=== PATIENT | female | born 1980 | race Caucasian/White ===

== ENCOUNTER 2021-10-12 14:37 | Outpatient (CLI) | payer BC, SELFPAY ==
[2021-10-12 17:23] LABS: Chloride* 104 mmol/L (96-114); Potassium* 4.2 mmol/L (3.6-5.1); Sodium* 136 mmol/L (135-149)
[2021-10-12 17:25] LABS: Cholesterol* 240 mg/dL (90-199); Creatinine* 0.9 mg/dL (0.5-1.5); Triglycerides* 100 mg/dL (40-149)
[2021-10-12 17:26] LABS: Blood Urea Nitrogen* 16 mg/dL (5-24); Calcium* 8.9 mg/dL (8.4-10.6); Carbon Dioxide* 25 mmol/L (20-32); Glucose* 86 mg/dL (60-115); HDL Cholesterol* 43 mg/dL (>=50); LDL Cholesterol Calculated 177 mg/dL (<100)
== END 2021-10-12 14:38 | disposition home or self-care (01) ==
LOC: NFLDREF 14:39
PROVIDERS: PCP Family Medicine; Visit Provider Family Medicine
DX: R10.9 Unspecified abdominal pain (principal); G89.29 Other chronic pain; N92.0 Excessive and frequent menstruation with regular cycle; N30.10 Interstitial cystitis (chronic) without hematuria; K21.9 Gastro-esophageal reflux disease without esophagitis; M25.561 Pain in right knee; Z13.6 Encounter for screening for cardiovascular disorders
CPT/HCPCS: 80048; 80061

== ENCOUNTER 2021-11-14 11:02 | Emergency (ER) | payer BC, SELFPAY ==
[2021-11-14] VITALS (7 sets, daily range): BP systolic 102–115; BP diastolic 68–85; PULSE 61–69; RESP 16–18; TEMP 35.9; O2SAT 94–99; BMI 29.4
--- NOTE | 2021-11-14 11:23 | ED_ITS ---
HPI - General Adult General Time Seen by Provider: 11:23 Date Seen: 11/14/21 Chief complaint: Chest Pain Stated complaint: Chest pressure/neck pain down to the spine Time Seen by Provider: 11/14/21 11:09 Source: patient History of Present Illness HPI narrative: Lizette is a 41-year-old female past medical history includes depression and anxiety, GERD, chronic abdominal pain, chronic interstitial cystitis presents em erged department by her husbandwith chest pressure. Patient states she was diagnosed with COVID 3 weeks ago, since last Friday she has had a fever 101, she has had intermittent chest pressure worse with movement. Feels like an elephant is sitting on her chest. She has no history of any CAD or stroke. No family history that is contributory.. She feels lightheaded when she stands, she denies any nausea vomiting, abdominal pain or diarrhea, she has no urinary complaints. She does have a dry cough, when she lays flat pressure is better, worse with ambulation, worse with inspiration, no fevers, chills, she does have a headache, and sinus congestion. Some neck pain radiates down her spine, no anterior neck pain or injury noted. She has been eating but less, no other sick contacts. When she had COVID 3 weeks ago she had some body aches, mild fevers. No serious issues With difficulty breathing or chest pressure. Due to worsening symptoms she presents emerged department Related Data Home Medications Medication Instructions Recorded Confirmed albuterol sulfate 90 mcg/actuation 2 puff inhalation Q4-6H PRN 10/12/21 11/14/21 aerosol inhaler bupropion HCl 300 mg 24 hr tablet, 300 mg PO DAILY 10/12/21 11/14/21 extended release fluticasone furoate 200 See Rx Instructions inhalation 10/12/21 11/14/21 mcg-vilanterol 25 mcg/dose DAILY inhalation powder sertraline 100 mg tablet 100 mg PO DAILY 10/12/21 11/14/21 Previous Rx's Medication Instructions Recorded diclofenac sodium 75 mg 75 mg PO BID #60 tabs 10/12/21 tablet,delayed release omeprazole 20 mg capsule,delayed 20 mg PO QDAY #90 caps 10/12/21 release Allergies Allergy/AdvReac Type Severity Reaction Status Date / Time hydrocodone Allergy Intermediate itchy Verified 11/14/21 11:20 Review of Systems Status of ROS: Reports: 10 or more systems reviewed and unremarkable except as noted in History and below [facility] Medical History Chronic abdominal pain Chronic interstitial cystitis Cyst of left ovary Cyst of right ovary Essential tremor (08/16/07) Gastroesophageal reflux disease (06/16/08) Generalized anxiety disorder History of abnormal cervical Papanicolaou smear Insomnia (01/07/14) Menorrhagia Moderate episode of recurrent major depressive disorder (02/23/07) Restless legs syndrome (03/25/12) Surgical History History of laparoscopy History of tubal ligation Status post laparoscopic hysterectomy Family History Other ASCVD (arteriosclerotic cardiovascular disease) Diabetes Social History Narrative: josé luis, smoker Smoking Status: Current every day smoker Do you use any of these nicotine containing products: None Second hand tobacco smoke exposure: No How often do you have a drink containing alcohol: 2-4 times a month How often do you have six or more drinks on one occasion: Never AUDIT-C Alcohol total score: 2 Non-prescribed substance use: marijuana (any form) Little interest or pleasure in doing things: nearly every day Feeling down, depressed, or hopeless: several days Exam Narrative: Exam Narrative: general: no obvious distress lying comfortably HEENT: pupils equal round reactive to light, extraocular muscles intact neck: supple full range of motion lungs: clear to auscultation bilateral, no wheezing, rhonchi, or rales heart; normal sinus rhythm S1-S2 abdomen: bowel sounds present, nontender to palpation muscle skeletal: no lower extremity edema, +5 strength upper lower extremity, mild tenderness to palpation the anterior chest wall. neuro: alert awake and oriented x3 psych: anxious in appearance Const: Vital Signs, click to edit/add: Vital Signs - 24 hr 11/14/21 11:12 11/14/21 11:30 11/14/21 12:00 Temperature 96.6 F L Pulse Rate [Apical ] 68 65 62 Respiratory Rate 18 18 16 Blood Pressure [Le ft Upper Arm] 115/85 103/80 110/75 Pulse Oximetry 99 99 95 Oxygen Delivery Me thod Room Air Room Air Room Air 11/14/21 12:30 11/14/21 13:00 11/14/21 14:00 Temperature Pulse Rate [Apical ] 61 65 63 Respiratory Rate 16 Blood Pressure [Le ft Upper Arm] 104/68 113/76 102/71 Pulse Oximetry 95 94 94 Oxygen Delivery Me thod Room Air Room Air Room Air Course Course Hospital Course: 11:20 AM: AIDET performed. workup will include IV peripheral, will obtain EKG, troponin I, D-dimer, CBC, BMP, she will receive 30 mg IV Toradol and 1 L 0.9 normal saline bolus. Less likely ACS, pain is more reproducible, worse on movement, vitals are stable at this time, no hypoxia. will wait for labs to see which further imaging to be obtained. ECG shows a normal sinus rhythm, bpm 66, is a possible right ventricular conduction delay which was seen on previous, no acute changes compared to previous. Per myself. Differential diagnosis include life-threatening CAD mi PE pneumothorax aortic dissection, COVID pneumonia, as well as pericarditis myocarditis chest wall pain GERD esophageal rupture as well as other etiologies. Reevaluation(s) Reevaluation #1: patient was updated on her EKG and lab results, patient continues to have chest pressure and back pain, despite giving her the above care, D-dimer and troponin negative, EKG showed no acute changes, plan to get CT PE protocol rule out any acute changes associated with her COVID history. Time: 12:24 Reevaluation #2: Patient updated on her imaging results, findings showed no acute pulmonary embolism, no aortic dissection, no infiltrate, mild bibasilar atelectasis. This was read by Radiology. Patient is feeling better after above care given, still waiting on 2nd troponin, likely discharge home. Time: 14:13 Reevaluation #3: Second troponin negative, patient is ambulating to and from the bathroom with minimal symptoms, plan would be to discharge she will follow up with her primary care provider over the next 7-10 days, return precautions given. All questions answered. Vital Signs Vital signs: Initial Vital Signs Temperature 96.6 F L 11/14/21 11:12 Temperature Source Temporal Artery Scan 11/14/21 11:12 Pulse Rate 68 11/14/21 11:12 Pulse Rhythm 11/14/21 11:12 Respiratory Rate 18 11/14/21 11:12 Blood Pressure 115/85 11/14/21 11:12 Blood Pressure Mean 95 11/14/21 11:12 Pulse Oximetry 99 11/14/21 11:12 Oxygen Delivery Method 11/14/21 11:12 Vital Signs Temperature 96.6 F L 11/14/21 11:12 Pulse Rate 68 11/14/21 11:12 Respiratory Rate 18 11/14/21 11:12 Blood Pressure 115/85 11/14/21 11:12 Pulse Oximetry 99 11/14/21 11:12 Oxygen Delivery Method 11/14/21 11:12 Temperature 96.6 F L 11/14/21 11:12 Pulse Rate 63 11/14/21 14:00 Respiratory Rate 16 11/14/21 12:30 Blood Pressure 102/71 11/14/21 14:00 Pulse Oximetry 94 11/14/21 14:00 Oxygen Delivery Method 11/14/21 14:00 Medical Decision Making Lab Data Labs: Lab Results 11/14/21 11/14/21 11/14/21 Range/Units 11:20 11:20 11:20 WBC 6.02 (4.50-11.00) K/uL RBC 4.62 (4.00-5.20) m/uL Hgb 14.0 (12.0-16.0) gm/dL Hct 41.0 (33.0-51.0) % MCV 89 (80-100) fL MCH 30 (26-34) pg MCHC 34 (32-36) gm/dL RDW Coeff of Jose Alberto 12.8 (11.5-15.5) % Plt Count 274 (140-440) K/uL Neut % (Auto) 60.1 (42.0-72.0) % Lymph % (Auto) 30.6 (20-44) % [place] % (Auto) 7.6 (0.0-11.0) % Eos % (Auto) 1.3 (0.0-7.0) % Baso % (Auto) 0.2 (0.0-3.0) % Neut # (Auto) 3.62 (1.7-7.0) K/uL Lymph # (Auto) 1.84 (0.90-2.90) K/uL [place] # (Auto) 0.50 (0.00-0.90) K/UL Eos # (Auto) 0.08 (0.00-0.50) K/uL Baso # (Auto) 0.01 (0.00-0.30) K/uL Abs Immat Gran (auto) 0.01 (0.00-0.30) K/uL D-Dimer Quant (PE/DVT) 0.33 (0.00-0.50) ug/ml Sodium 136 (135-149) mmol/L Potassium 4.3 (3.6-5.1) mmol/L Chloride 106 (96-114) mmol/L Carbon Dioxide 23 (20-32) mmol/L BUN 16 (5-24) mg/dL Creatinine 0.8 (0.5-1.5) mg/dL Estimated Creat Clear 88.38 Estimated GFR 96 ml/min Glucose 92 (60-115) mg/dL Calcium 8.6 (8.4-10.6) mg/dL Troponin I < 0.01 L (0.01-0.04) ng/mL 11/14/21 Range/Units 13:34 WBC (4.50-11.00) K/uL RBC (4.00-5.20) m/uL Hgb (12.0-16.0) gm/dL Hct (33.0-51.0) % MCV (80-100) fL MCH (26-34) pg MCHC (32-36) gm/dL RDW Coeff of Jose Alberto (11.5-15.5) % Plt Count (140-440) K/uL Neut % (Auto) (42.0-72.0) % Lymph % (Auto) (20-44) % [place] % (Auto) (0.0-11.0) % Eos % (Auto) (0.0-7.0) % Baso % (Auto) (0.0-3.0) % Neut # (Auto) (1.7-7.0) K/uL Lymph # (Auto) (0.90-2.90) K/uL [place] # (Auto) (0.00-0.90) K/UL Eos # (Auto) (0.00-0.50) K/uL Baso # (Auto) (0.00-0.30) K/uL Abs Immat Gran (auto) (0.00-0.30) K/uL D-Dimer Quant (PE/DVT) (0.00-0.50) ug/ml Sodium (135-149) mmol/L Potassium (3.6-5.1) mmol/L Chloride (96-114) mmol/L Carbon Dioxide (20-32) mmol/L BUN (5-24) mg/dL Creatinine (0.5-1.5) mg/dL Estimated Creat Clear Estimated GFR ml/min Glucose (60-115) mg/dL Calcium (8.4-10.6) mg/dL Troponin I < 0.01 L (0.01-0.04) ng/mL Discharge Plan Discharge Clinical Impression: Chest pressure, History of COVID-19, Lightheadedness Patient Disposition: Home, Self-Care Instructions: Chest Pain (ED) Additional Instructions: Follow-up with primary care provider [facility] [address] over the next 7-10 days, return if worsening symptoms. Activity Level: Activity as Tolerated Discharge Diet: Regular Prescriptions: No Action bupropion HCl 300 mg tablet extended release 24 hr 300 mg PO DAILY albuterol sulfate 90 mcg/actuation HFA aerosol inhaler 2 puff inhalation Q4-6H PRN sertraline 100 mg tablet 100 mg PO DAILY fluticasone furoate-vilanterol 200-25 mcg/dose blister with device See Rx Instructions inhalation DAILY Rx Instructions: 1 puff inhalation daily; diclofenac sodium 75 mg tablet,delayed release (DR/EC) 75 mg PO BID Qty: 60 2RF omeprazole 20 mg capsule,delayed release(DR/EC) 20 mg PO QDAY Qty: 90 0RF Follow Up/Referrals: Danny Hernández MD [Primary Care Provider] - Stand Alone Forms: [employer] Info Instructions
[2021-11-14 11:38] LABS: Basophils Absolute Auto 0.01 K/uL (0.00-0.30); Basophils Percent Auto 0.2 % (0.0-3.0); Eosinophils Absolute Auto 0.08 K/uL (0.00-0.50); Eosinophils Percent Auto 1.3 % (0.0-7.0); Immature Granulocytes Abs Auto 0.01 K/uL (0.00-0.30); Lymphocytes Absolute Auto 1.84 K/uL (0.90-2.90); Lymphocytes Percent Auto 30.6 % (20-44); Mean Corpuscular HGB Conc 34 gm/dL (32-36); Mean Corpuscular Hemoglobin 30 pg (26-34); Mean Corpuscular Volume 89 fL (80-100); Monocytes Percent Auto 7.6 % (0.0-11.0); Neutrophils Absolute Auto 3.62 K/uL (1.7-7.0); Neutrophils Percent Auto 60.1 % (42.0-72.0); Platelet Count* 274 K/uL (140-440); RDW Coefficient of Variation % 12.8 % (11.5-15.5); Red Blood Count 4.62 m/uL (4.00-5.20); White Blood Count* 6.02 K/uL (4.50-11.00)
[2021-11-14 11:47] LABS: Slide Review Reflex No
[2021-11-14] MEDS: 0.9 % SODIUM CHLORIDE 1000 ml 1,000 ML IV (11:52)
[2021-11-14] MEDS: KETOROLAC 30 MG/ML inj IVP (11:52)
[2021-11-14 11:58] LABS: Chloride* 106 mmol/L (96-114); Potassium* 4.3 mmol/L (3.6-5.1); Sodium* 136 mmol/L (135-149)
[2021-11-14 12:00] LABS: D Dimer Quantitative* 0.33 ug/ml (0.00-0.50)
[2021-11-14 12:01] LABS: Blood Urea Nitrogen* 16 mg/dL (5-24); Carbon Dioxide* 23 mmol/L (20-32); Creatinine* 0.8 mg/dL (0.5-1.5); Est. Creatinine Clearance* 88.38; Estimated Glomerular Filt Rate 96 ml/min
[2021-11-14 12:02] LABS: Calcium* 8.6 mg/dL (8.4-10.6); Glucose* 92 mg/dL (60-115)
[2021-11-14 12:17] LABS: Troponin I* < 0.01 ng/mL (0.01-0.04)
--- NOTE | 2021-11-14 12:23 | CRLHL7_ITS ---
For Patients: As a result of the Century Cures Act, medical imaging exams and procedure reports are released immediately into your electronic medical record. You may view this report before your referring provider. If you have questions, please contact your health care provider. INDICATION: Chest pain. Dyspnea. Lethargy. COMPARISON: August 30, 2013 and September 12, 2021 TECHNIQUE: : CT examination of the chest was performed with the uneventful intravenous administration of 95 cc of Isovue 3 7 while thin axial sections were obtained from above the apices of the lungs to the lung bases. Please note that all CT scans at this facility use dose modulation, iterative reconstruction, and/or weight-based dosing when appropriate to reduce radiation dose to as low as reasonably achievable. FINDINGS: : HEART and MEDIASTINUM: The heart size is normal. There is no mediastinal or hilar adenopathy or mass. There is no pericardial effusion. PULMONARY ARTERIAL CIRCULATION: There is no visible intraluminal filling defect to suggest pulmonary embolus. LUNGS: Minimal bibasilar subsegmental atelectasis. PLEURAL SPACES: There is no pleural effusion, pneumothorax or pleural based mass. VISUALIZED UPPER ABDOMEN: The limited visualized upper abdominal structures appear normal. OSSEOUS STRUCTURES: Age-appropriate appearance. No acute fracture or destructive process. TUBES and LINES: None. IMPRESSION: There is no finding of acute pulmonary embolus. Minimal bibasilar subsegmental atelectasis. Please note that all CT scans at this facility use dose modulation, iterative reconstruction, and/or weight-based dosing when appropriate to reduce radiation dose to as low as reasonably achievable. Dictated by Jacob Laureano MD @ 11/14/2021 2:06:28 PM (Electronically Signed)
[2021-11-14] MEDS: MORPHINE 4 MG/ML INJ IVP (12:42)
[2021-11-14 14:22] LABS: Troponin I* < 0.01 ng/mL (0.01-0.04)
--- NOTE | 2021-11-14 14:38 | ED.NURSE ---
Pt provided with work excuse note for 11/13/21 and 11/14/21.
--- OUTSIDE RECORDS SUMMARY | 2021-11-21 01:56 | XMS_ITS | Encounter Summary ---
:1980 Author Organization [place] Address [facility] [place] [address] Care Team Providers Name Role Phone Ratna Mackey MD Primary Care Provider Reason for Visit Reason Comments Constipation Encounter Details Date Type Department Care Team Description 11/13/2015 Emergency [facility] Krysta Pantoja MD Constipation, [facility] Emergency Dep t [facility] unspecified [address] constipation type [place], [place] [address] [facility] [id number] [place] [address] [phone] (Wo rk) Social History Tobacco Use Types Packs/Day Years Used Date Current Some Day Smoker 0.25 Alcohol Use Standard Drinks/Week Comments No 0 (1 standard drink = 0.6 oz pure alcoho l) Sex Assigned at Date Recorded Not on file documented as of this encounter Last Filed Vital Signs Vital Sign Reading Time Taken Comments Blood Pressure 132/87 11/13/2015 9:40 PM CDT Pulse 92 11/13/2015 9:40 PM CDT Temperature 36.4 ??C (97.5 ??F) 11/13/2015 9:40 PM CDT Respiratory Rate 18 11/13/2015 9:40 PM CDT Oxygen Saturation 98% 11/13/2015 9:30 PM CDT Inhaled Oxygen Concentration - - Weight - - Height - - Body Mass Index - - documented in this encounter Discharge Instructions Discharge InstructionsKrysta Pantoja MD - 11/13/2015 9:36 PM CDT Please follow up closely with your regular physician. Please return to the ED if your symptoms worsen or if you develop new or concerning symptoms. Discharge Instructions Constipation Your doctor has diagnosed you with constipation. Constipation can cause severe cramping pain and your physician thinks this is the cause of your abdominal pain today. People usually recognize that theyare constipated because they have difficulty having bowel movements, are not having bowel movements frequently enough, or are not having large enough bowel movements. Sometimes, especially in children or older people, you do not recognize that you are constipated until it becomes severe. The most common cause of constipation is a combination of lack of exercise and not eating enough fruits, vegetables and whole grains. Constipation can also be a side effect of medications, such as narcotics, or may be caused by a disease of the digestive system. Return to the Emergency Department if: Your abdominal pain worsens or does not improve after a bowel movement. You become very weak. You get an oral temperature above 102oF or as directed by your doctor. You have blood in your stools (bright red or black, tarry stools). You keep throwing up or can???t drink liquids. Your see blood when you throw up. Your stomach gets bloated or bigger. You have new symptoms or anything that worries you. What can I do to help myself? If your doctor gave you a cathartic medication, like magnesium citrate or GoLytely?? (polyethylene glycol), you can expect to have cramps and gas pains after taking it. You can expect to have a number of bowel movements and even diarrhea in the course of clearing your bowels. You will know your bowelshave been cleaned out after you pass clear liquid. The cramps and gas should let up after you have emptied your bowels. You may want to wait until morning to take this type of medication so you aren???t up in the night. Sometimes instead of cathartics, we recommend laxatives like milk of magnesia to move your bowels more slowly, or an enema to help the bowels to move. Read and follow the package directions, or follow your physician???s instructions. Once you have become very constipated, it takes time for your bowels to return to normal and you need to be very careful to prevent becoming constipated again. Take a laxative if you don???t move your bowels at least every two days. Eat foods that have a lot of fiber. Good choices are fruits, vegetables, prune juice, apple juice and high fiber cereal. Limit dairy products such as milk and cheese, since these can make constipation worse. Drink plenty of water and other fluids. When you feel the need to go to the bathroom, go to the bathroom. Don???t hold it. Miralax??, Metamucil??, Colace??, Senna or fiber supplements can be used daily. Miralax?? daily is often the best choice for children. FOLLOW UP WITH YOUR REGULAR DOCTOR IF YOUR CONSTIPATION IS NOT IMPROVING. Sometimes, chronic constipation requires further testing to determine the cause. If you are over 50 years old, you may need a colonoscopy if you have not had one before. If you were given a prescription for medicine here today, be sure to read all of the information (including the package insert) that comes with your prescription. This will include important information about the medicine, its side effects, and any warnings that you need to know about. The pharmacist who fills the prescription can provide more information and answer questions you may have about the medicine. If you have questions or concerns that the pharmacist cannot address, please call or return to the Emergency Department. Opioid Medication Information Pain medications are among the most commonly prescribed medicines, so we are including this information for all our patients. If you did not receive pain medication or get a prescription for pain medicine, you can ignore it. You may have been given a prescription for an opioid (narcotic) pain medicine and/or have received apain medicine while here in the Emergency Department. These medicines can make you drowsy or impaired. You must not drive, operate dangerous equipment, or engage in any other dangerous activities whiletaking these medications. If you drive while taking these medications, you could be arrested for DUI, or driving under the influence. Do not drink any alcohol while you are taking these medications. Opioid pain medications can cause addiction. If you have a history of chemical dependency of any type, you are at a higher risk of becoming addicted to pain medications. Only take these prescribed medications to treat your pain when all other options have been tried. Take it for as short a time and asfew doses as possible. Store your pain pills in a secure place, as they are frequently stolen and provide a dangerous opportunity for children or visitors in your house to start abusing these powerful medications. We will not replace any lost or stolen medicine. As soon as your pain is better, you should flush all your remaining medication. Many prescription pain medications contain Tylenol?? (acetaminophen), including Vicodin??, Tylenol #3??, [place]??, Lortab??, and Percocet??. You should not take any extra pills of Tylenol?? if you are using these prescription medications or you can get very sick. Do not ever take more than 3000 mg of acetaminophen in any 24 hour period. All opioids tend to cause constipation. Drink plenty of water and eat foods that have a lot of fiber, such as fruits, vegetables, prune juice, apple juice and high fiber cereal. Take a laxative if you don???t move your bowels at least every other day. Miralax??, Milk of Magnesia, Colace??, or Senna?? can be used to keep you regular. Remember that you can always come back to the Emergency Department if you are not able to see your regular doctor in the amount of time listed above, if you get any new symptoms, or if there is anything that worries you. documented in this encounter Medications at Time of Discharge Medication Sig Dispensed Refills Start Date End Date albuterol (PROAIR HFA, Inhale 2 puffs into 0 PROVENTIL HFA, VENTOLIN the lungs every 6 HFA) 108 (90 BASE) hours MCG/ACT inhaler ROPINIROLE HCL PO Take 2.5 mg by mouth 0 daily SERTRALINE HCL PO Take 100 mg by mouth 0 daily senna (SENOKOT) 8.6 MG Take 1 tablet by 14 tablet 0 016 01/15/2016 tablet mouth daily documented as of this encounter ED Notes Mimi Domínguez RN - 11/13/2015 8:33 PM CDT Pt ambulated to and from bathroom independently, footwear worn, steady gait. UA obtained and sent tolab. Pt appears in pain after defecation, states it was hard, but it's out. Two large chunks of stool noted in toilet MD Scarlett richter updated. Mimi Domínguez RN - 11/13/2015 8:18 PM CDT Enema completed per Kelly Burr, nursing internal communications writer with supervision. Lab currently drawing specimens, awaiting results of enema. Call light within reach. Krysta Pantoja MD - 11/13/2015 7:21 PM CDT History Chief Complaint: Constipation HPI Lizette Serrato is a 35 year old female who presents to the emergency department today for evaluation of constipation. The patient stated she has not had a bowel movement in About 1.5 weeks. She tried taking Miralax and other laxatives but no improvement. This morning, stated she started to feel sick which was associated with diffuse abdominal pain as well as nausea and one episode of vomiting. She has never had symptoms like this before and came into the ED for further evaluation. Additionally, thepatient reports that she is scared to pee because she knows she has to have a bowel movement but is not able to do so. She denies fever, chills, dysuria, hematuria, or other complaints at this time. She notes that she is on chronic pain medication for chronic abdominal pain, thus she believes that this is what has contributed to her constipation. Allergies: No Known Drug Allergies Medications: Ropinirole Albuterol Sertraline Past Medical History: Asthma Depressive disorder Restless leg syndrome Past Surgical History: Laparoscopic tubal ligation Family History: History reviewed. No pertinent family history. Social History: The patient was accompanied to the ED by her daughter. Smoking Status: Current some day smoke - 0.25packs/day Alcohol Use: No Marital Status: Review of Systems Gastrointestinal: Positive for nausea, vomiting, abdominal pain and constipation. Negative for diarrhea. Genitourinary: Negative for dysuria, urgency and frequency. All other systems reviewed and are negative. Physical Exam First Vitals: BP: 114/88 mmHg Pulse: 131 Temp: 97.2 ??F (36.2 ??C) Resp: 18 SpO2: 97 % Physical Exam Constitutional: The patient is oriented to person, place, and time. Alert and cooperative. HENT: Right Ear: External ear normal. Left Ear: External ear normal. Nose: Nose normal. Mouth/Throat: Uvula is midline, oropharynx is clear and moist and mucous membranes are normal. No posterior oropharyngeal edema or erythema. Eyes: Conjunctivae, EOM and lids are normal. Pupils are equal, round, and reactive to light. Neck: Trachea normal. Normal range of motion. Neck supple. Cardiovascular: tachycardia, regular rhythm, normal heart sounds, and intact distal pulses. Pulmonary/Chest: Effort normal and breath sounds equal bilaterally. No crackles or wheezing. Abdominal: Soft. No significant tenderness to palpation. No rebound and no guarding. Musculoskeletal: Normal range of motion. No extremity tenderness or edema. Neurological: Alert and Oriented. Strength 5/5 in upper and lower extremities bilaterally. Sensationintact to light touch throughout. Skin: Skin is dry. No rash noted. Emergency Department Course Imaging: Radiology findings were communicated with the patient who voiced understanding of the findings. Abdomen XR, 2 views, flat and upright IMPRESSION: Constipation. Final reading per radiology Laboratory: CBC: WNL. (WBC 10.1, HGB 14.1, PLT 43.2) CMP: Glucose 123(H) o/w WNL (Creatinine 0.63) Lipase: 93 UA: WNL HCG Qualitative Urine: Negative Interventions: 2025 [place] Lady Enema 186mL Rectal Emergency Department Course: Nursing notes and vitals reviewed. I performed an exam of the patient as documented above. The patient was sent for a Abdomen XR while in the emergency department, results above. IV was inserted and blood was drawn for laboratory testing, results above. The patient provided a urine sample here in the emergency department. This was sent for laboratory testing, findings above. At 1924 I initially examined the patient. At 2054 the patient was rechecked and updated on the imaging and laboratory results. I discussed the treatment plan with the patient. They expressed understanding of this plan and consented to discharge. They will be discharged home with instructions for care and follow up. In addition, the patient will return to the emergency department if their symptoms persist, worsen, if new symptoms arise or if there is any concern. All questions were answered. I personally reviewed the laboratory and imaging results with the Patient and answered all related questions prior to discharge. Impression & Plan Medical Decision Making: Lizette Serrato is a 35 year old female with a history of chronic abdominal pain who presents to the emergency department for evaluation of constipation. Upon presentation in the ED, the patient is nontoxic appearing. She is tachycardic, but vitals are otherwise within normal limits and stable. On exam, she is well appearing. She is alert, oriented, and neurologic exam is non focal. Aside from tachycardia, cardiopulmonary exam is unremarkable. Abdomen is soft and not significantly tender to palpation throughout. The rest of her exam is as mentioned above. X-ray was obtained and demonstrates a large amount of fecal material in the colon. There is no evidence for obstruction or free intraperitoneal air.Lab evaluation is as mentioned above and is unremarkable. She does not have a leukocytosis. The patient was given a pink lady enema with significant results. The patient notes significant improvement following her bowel movement. Overall, given this patient's history and presentation, I do feel her symptoms are most consistent with constipation. She has no peritoneal signs on abdominal exam to suggest an acute surgical abdomen or warrant further imaging of her abdomen at this time. Given that her symptoms have significantly improved following her bowel movement, I do feel that she can be dischargedto home. She was given a prescription for senna and instructed to follow up closely with her primarycare physician. She notes understanding and agreement with this plan. Strict return instructions were given. She was stable/improved at the time of discharge. Diagnosis: ICD-10-CM 1. Constipation, unspecified constipation type K59.00 Disposition: Discharged home with the below prescriptions Discharge Medications: Discharge Medication List as of 11/13/2015 9:39 PM START taking these medications Details senna (SENOKOT) 8.6 MG tablet Take 1 tablet by mouth daily, Disp-14 tablet, R-0, Local Print Scribe Disclosure: Christine Miranda am serving as a scribe at 7:31 PM on 11/13/2015 to document services personally performed by Krysta Pantoja MD, based on my observations and the provider's statements to me. 11/13/2015 [facility] EMERGENCY DEPARTMENT Krysta Pantoja MD 11/14/15 1225 Courtney Alfredo RN - 11/13/2015 6:42 PM CDT Patient presents to the ED with constipation. Reports no BM x 4 days. documented in this encounter Plan of Treatment Not on filedocumented as of this encounter Procedures Procedure Name Priority Date/Time Associated Comments Diagnosis HCG QUALITATIVE URINE STAT 11/13/2015 8:25 PM Results for this CDT procedure are i n the results section. ROUTINE UA WITH Routine 11/13/2015 8:25 PM Result s for this MICROSCOPIC CDT procedure are i n the results section. CBC WITH PLATELETS & STAT 11/13/2015 8:19 PM R esults for this DIFFERENTIAL CDT procedure are i n the results section. LIPASE STAT 11/13/2015 8:19 PM Results f or this CDT procedure are i n the results section. COMPREHENSIVE STAT 11/13/2015 8:19 PM Results for this METABOLIC PANEL CDT procedure ar e in the results section. XR ABDOMEN 2 VIEWS STAT 11/13/2015 7:43 PM Res ults for this CDT procedure are i n the results section. documented in this encounter Results HCG qualitative urine (11/13/2015 8:25 PM CDT) P athologist Signature HCG Qual Urine Negative NEG [facility] Specimen Anatomical Collection Method Collection Time Receive d Time (Source) Location / / Volume Laterality Urine specimen URINE SPECIMEN 11/13/2015 8:25 PM 11/12 8:48 (specimen) OBTAINED BY CLEAN CDT PM CDT CATCH PROCEDURE / Unknown Krysta Pantoja MD LAB - URINE ORDERABLES Performing Organization Address City/State/ZIP Code Phon e Number [facility] [address] [address] [facility] [address] [address] [facility] [phone] UA with Microscopic (11/13/2015 8:25 PM CDT) [facility] gist Method Time Signature Color Urine Straw [facility] Appearance Urine Slightly [facility] Cloudy [facility] Glucose Urine Negative NEG mg/dL [facility] Bilirubin Urine Negative NEG [facility] Ketones Urine Negative NEG mg/dL [facility] Specific [place] 1.006 1.003 - [facility] Urine 1.035 [facility] Blood Urine Negative NEG [facility] pH Urine 7.0 5.0 - 7.0 [place] pH [facility] Protein Albumin Negative NEG mg/dL [facility] Urobilinogen Normal 0.0 - 2.0 [place] mg/dL mg/dL [facility] Nitrite Urine Negative NEG [facility] Leukocyte Negative NEG [place] Esterase Urine [facility] Source Midstream [facility] WBC Urine <1 0 - 2 [facility] RBC Urine 0 0 - 2 [facility] Squamous 1 0 - 1 [facility] Specimen Anatomical Collection Method Collection Time Receive d Time (Source) Location / / Volume Laterality Urine specimen URINE SPECIMEN 11/13/2015 8:25 PM 11/12 8:48 (specimen) OBTAINED BY CLEAN CDT PM CDT CATCH PROCEDURE / Unknown Krysta Pantoja MD LAB - URINE ORDERABLES Performing Organization Address City/[facility]/ZIP [facility] Phon e Number M [facility] [address], [place] [address] [place] [address] [address] [address], [facility] [phone] Lipase (11/13/2015 8:19 PM CDT) P athologist Signature Lipase 93 73 - 393 [facility] U/L [facility] Specimen Anatomical Collection Method Collection Time Receive d Time (Source) Location / / Volume Laterality Blood specimen 11/13/2015 8:19 PM 016 8:26 (specimen) CDT PM CDT Krysta Pantoja MD LAB - BLOOD ORDERABLES Performing Organization Address City/[facility] Phon e Number M [facility] [address], [place] [address] [facility] [address] [address], [facility] [phone] (ABNORMAL) Comprehensive metabolic panel (11/13/2015 8:19 PM CDT) Patholo gist Method Time Signature Sodium 141 133 - 144 [place] mmol/L [facility] Potassium 4.4 3.4 - 5.3 [facility] mmol/L [facility] Chloride 109 94 - 109 [place] mmol/L [facility] Carbon Dioxide 27 20 - 32 [place] mmol/L [facility] Anion Gap 5 3 - 14 [place] mmol/L [facility] Glucose 123 (H) 70 - 99 [place] mg/dL [facility] Urea Nitrogen 7 7 - 30 [facility] mg/dL [facility] Creatinine 0.63 0.52 - [facility] 1.04 [facility] mg/dL [facility] GFR Estimate >90 >60 [facility] Non GFR Calc mL/min/1. [facility] 7m2 [facility] GFR Estimate If >90 >60 [facility] Black GFR Calc mL/min/1. [facility] 7m2 [facility] Calcium 8.7 8.5 - [facility] 10.1 [facility] mg/dL [facility] Bilirubin Total 0.3 0.2 - 1.3 [facility] mg/dL [facility] Albumin 3.4 3.4 - 5.0 [place] g/dL [facility] Protein Total 6.9 6.8 - 8.8 [place] g/dL [facility] Alkaline 72 40 - 150 [facility] Phosphatase U/L [facility] ALT 28 0 - 50 [facility] U/L [facility] AST 17 0 - 45 [place] U/[facility] Specimen Anatomical Collection Method Collection Time Receive d Time (Source) Location / / Volume Laterality Blood specimen 11/13/2015 8:19 PM 016 8:26 (specimen) CDT PM CDT Krysta Pantoja MD LAB - BLOOD ORDERABLES Performing Organization Address City/State/ZIP Code Phon e Number M [facility] [address], [place] [address] [facility] [address] [phone] (ABNORMAL) CBC + differential (11/13/2015 8:19 PM CDT) [facility] Method Time Signature WBC 10.1 4.0 - [place] 11.0 [facility] 10e9/L [facility] RBC Count 4.81 3.8 - 5.2 [facility] 10e12/L [facility] Hemoglobin 14.1 11.7 - [facility] 15.7 g/dL [facility] Hematocrit 43.2 35.0 - [facility] 47.0 % [facility] MCV 90 78 - 100 [place] fl [facility] MCH 29.3 26.5 - [place] 33.0 pg [facility] MCHC 32.6 31.5 - [place] 36.5 g/dL [facility] RDW 12.9 10.0 - [facility] 15.0 % [facility] Platelet Count 256 150 - [address] Diff Method Automated [facility] Method [facility] % Neutrophils 83.6 % [facility] % Lymphocytes 10.8 % [facility] % Monocytes 4.6 % [facility] % Eosinophils 0.4 % [facility] % Basophils 0.2 % [facility] % Immature 0.4 % [facility] Granulocytes [facility] Nucleated RBCs 0 0 /100 [facility] Absolute 8.4 (H) 1.6 - 8.3 [facility] Neutrophil [address] [place] [address] Absolute 1.1 0.8 - 5.3 [facility] Lymphocytes [address] [place] [address] Absolute 0.5 0.0 - 1.3 [facility] Monocytes [address] [place] [address] Absolute 0.0 0.0 - 0.7 [facility] Eosinophils [address] [place] [address] Absolute 0.0 0.0 - 0.2 [facility] Basophils [address] [place] [address] Abs Immature 0.0 0 - 0.4 [facility] Granulocytes [address] [place] [address] Absolute 0.0 [facility] Nucleated RBC [facility] Specimen Anatomical Collection Method Collection Time Receive d Time (Source) Location / / Volume Laterality Blood specimen 11/13/2015 8:19 PM 016 8:26 (specimen) CDT PM CDT Krysta Pantoja MD LAB - BLOOD ORDERABLES Performing Organization Address City/State/ZIP Code Phon e Number M [facility] [address], [place] [address] [facility] [address] [place], [place] [address] [facility] [phone] Abdomen XR, 2 vw, flat and upright (11/13/2015 7:43 PM CDT) Anatomical Region Laterality Modality Abdomen/Pelvis Computed Radiography Specimen (Source) Anatomical Location Collection Method / Collectio n Time Received Time / Laterality Volume Impressions 11/13/2015 9:04 PM CDT IMPRESSION: Constipation. GALILEO RYAN MD Narrative 11/13/2015 9:04 PM CDT ABDOMEN TWO VIEWS ??11/13/2015 7:43 PM HISTORY: Constipation. COMPARISON: None. FINDINGS: Large amount of fecal material in the colon. No evidence for obstruction. No free intraperitoneal air . Procedure Note Galileo Ryan MD - 11/13/2015Forma tting of this note might be different from the original. ABDOMEN TWO VIEWS 11/13/2015 7:43 PM HISTORY: Constipation. COMPARISON: None. FINDINGS: Large amount of fecal material in the colon. No evidence for obstruction. No free intraperitoneal air . IMPRESSION: Constipation. GALILEO RYAN MD Shahram Renteria DO IMG DIAGNOSTIC IMAGING ORDER BRIDGETT documented in this encounter Visit Diagnoses Diagnosis Constipation, unspecified constipation t ype documented in this encounter Administered Medications Inactive Administered Medications - up to 3 most recent administrations Medication Order MAR Action Action Date Dose Rate Site pink lady enema (COMPOUNDED) 186 mL enem a ENEM Starting on Fri11/13/15 at 2008, For 1 dose, SA MEAGHAN RAH: cabinet override Docusate not included due to CDC recommendation and co ncerns of potential contamination. pink lady enema without docusate Given 11/13/2015 8:26 PM CDT 18 6 mLs (COMPOUNDED: magnesium citrate,mineral oil,sodium phosphate) 186 mL, Rectal, ONCE, On Fri11/13/15 at 1928, For 1 dose, Docusate not included due to CDC recommendation and concerns of potential contamination. documented in this encounter Active and Recently Administered Medications Times are shown in CDT. Scheduled Medication Order 11/11/2015 11/12/2015 11/13/2015 pink lady enema without docusate (COMPOU NDED: magnesium citrate,mineral oil,sodium phosphate) (COMPLETED) 1927 ( Due)2025 (Given - Provider: Mimi Domínguez, ANGE) 186 mL, Rectal, ONCE, Fri11/13/15 at 1928 , For 1 dose, Docusate not included due to CDC recommendation and concerns of potential contamination. documented in this encounter Care Teams [employer] Relationship Specialty Start Date End Date Ratna Mackey MD PCP - General Family Practice 03/07/15 12/29/20 [facility] [id number] [place] [address] documented as of this encounter
--- OUTSIDE RECORDS SUMMARY | 2021-11-21 01:56 | XMS_ITS | Encounter Summary ---
:1980 Author Organization [facility] [place] [address] Care Team Providers Name Role Phone Jamin Silva MD Primary Care Provider Reason for Visit Reason Comments Abdominal Pain Encounter Details Date Type Department Care Team Description 03/30/2014 Emergency [facility] Courtney Hodges MD Left sided abdominal pain; [facility] Emergency Dep t [facility] Other and unspecified ovaria n cyst [address] [place], [place] [address] [facility] [id number] [place] [address] [phone] (Wo rk) Social History Tobacco Use Types Packs/Day Years Used Date Current Every Day Smoker 0.25 Alcohol Use Standard Drinks/Week Comments No 0 (1 standard drink = 0.6 oz pure alcoho l) Sex Assigned at Date Recorded Not on file documented as of this encounter Last Filed Vital Signs Vital Sign Reading Time Taken Comments Blood Pressure 131/90 03/30/2014 4:32 PM PICKLE PROCESSOR Pulse 100 03/30/2014 12:45 PM PICKLE PROCESSOR Temperature 36.5 ??C (97.7 ??F) 03/30/2014 12:45 PM PICKLE PROCESSOR Respiratory Rate 16 03/30/2014 2:20 PM PICKLE PROCESSOR Oxygen Saturation 97% 03/30/2014 4:32 PM PICKLE PROCESSOR Inhaled Oxygen Concentration - - Weight - - Height - - Body Mass Index - - documented in this encounter Discharge Instructions Discharge InstructionsCourtney Hodges MD - 03/30/2014 4:27 PM CST *Get plenty of rest and avoid strenuous activities. *Take medications as prescribed. Ibuprofen and/or tylenol for pain. Zofran for nausea. *Follow-up with your doctor for a recheck within 12-36 hours. *Return to the ER if you develop fever, worsening pain, pain that moves to the right lower abdomen, faint or feel like you will faint or become worse in any way. Discharge Instructions Ovarian Cyst Abdominal pain can be caused by many things. Your doctor today has found that you have a cyst on theovary, which appears to be the cause of your pain. Women in their reproductive years form cysts every month, but only cause pain if they are very large, or if they rupture and release blood or fluid. Fortunately, they rarely require surgery or hospitalization. The pain from a ruptured cyst usually gets gradually better, and should be much better within a few days. If there is a large cyst, it will usually go away within 1-2 months, but needs to be watched to be sure it does go away, since sometimes a large cyst can become a cancer. There can be complications of a cyst, or other problems that cannotbe found right away, so it is very important that you follow up as directed. Return to the Emergency Department for a recheck if your pain gets worse, changes in location, or feels different. Return to the Emergency Department right away if: ??? You get an oral temperature above 102oF or as directed by your doctor. ??? You have blood in your stools (bright red or black, tarry stools), or in your vomit. ??? You keep throwing up or can???t drink liquids. ??? You can???t have a bowel movement or you can???t pass gas. ??? You faint, or feel very weak. ??? You have bloody, frequent or painful urination. ??? You have new symptoms or anything that worries you. What can I do to help myself? Take any medication prescribed by your doctor. ??? You may use Tylenol?? (acetaminophen) or Advil??, Motrin?? (ibuprofen) for pain. Be sure to readand follow the package directions, and ask your doctor if you have questions. ??? Narcotic pain pills. If you have been given a narcotic such as Vicodin?? (hydrocodone with acetaminophen), Percocet?? (oxycodone with acetaminophen), codeine, do not drive for four hours after you have taken it. If the narcotic contains Tylenol?? (acetaminophen), do not take Tylenol?? with it. Allnarcotics will cause constipation, so eat a high fiber diet. ??? Avoid sex for several days, because it will probably be painful. Follow-up: ??? See your doctor within 2-3 days for a re-check. If you were given a prescription for [...] contain Tylenol?? (acetaminophen), including Vicodin??, Tylenol #3??, Randolph??, Lortab??, and Percocet??. You should not take [...] if there is anything that worries you. Discharge Instructions Abdominal Pain Abdominal pain can be caused by many things. Your evaluation today does not show the exact cause foryour pain. Your doctor today has decided that it is unlikely your pain is due to a life threatening problem, or a problem requiring surgery or hospital admission. Sometimes those problems cannot be found right away, so it is very important that you follow up as directed. Sometimes only the changes which occur over time allow the cause of your pain to be found. Return to the Emergency Department for a recheck in 8-12 hours if your pain continues. If your pain gets worse, changes in location, or feels different, return to the Emergency Department right away. ADULTS: Return to the Emergency Department right away if: ??? You get an oral temperature above 102oF or as directed by your doctor. ??? You have blood in your stools (bright red or black, tarry stools). ??? You keep throwing up or can???t drink liquids. ??? You see blood when you throw up. ??? You can???t have a bowel movement or you can???t pass gas. ??? Your stomach gets bloated or bigger. ??? Your skin or the whites of your eyes look yellow. ??? You faint. ??? You have bloody, frequent or painful urination. ??? You have new symptoms or anything that worries you. CHILDREN: Return to the Emergency Department right away if your child has any of the above-listed symptoms or the following: ??? Pushes your hand away or screams/cries when his/her belly is touched. ??? You notice your child is very fussy or weak. ??? Your child is very tired and is too tired to eat or drink. ??? Your child is dehydrated. Signs of dehydration can be: o Your infant has had no wet diapers in 4-5 hours. o Your older child has not passed urine in 6-8 hours. o Your or child starts to have dry mouth and lips, or no saliva or tears. WOMEN: Return to the Emergency Department right away if you have any of the above-listed symptoms or the following: ??? You have bleeding, leaking fluid or passing tissue from the vagina. ??? You have worse pain or cramping, or pain in your shoulder or back. ??? You have vomiting that will not stop. ??? You have painful or bloody urination. ??? You have a temperature of 100oF or more. ??? Your baby is not moving as much as usual. ??? You faint. ??? You get a bad headache with or without eye problems and abdominal pain. ??? You have a convulsion or seizure. ??? You have unusual discharge from your vagina and abdominal pain. Abdominal pain is pretty common during . Your pain may or may not be related to your . You should follow-up closely with your OB doctor so they can evaluate you and your baby. Until you follow-up with your regular doctor, do the following: ??? Avoid sex and do not put anything in your vagina. ??? Drink clear fluids. ??? Only take medications approved by your doctor. MORE INFORMATION: Appendicitis: A possible cause of abdominal pain in any person who still has their appendix is acuteappendicitis. Appendicitis is often hard to diagnose. Testing does not always rule out early appendicitis or other causes of abdominal pain. Close follow-up with your doctor and re-evaluations may be needed to figure out the reason for your abdominal pain. Follow-up: It is very important that you make an appointment with your clinic and go to the appointment. If you do not follow-up with your primary doctor, it may result in missing an important development which could result in permanent injury or disability and/or lasting pain. If there is any problemkeeping your appointment, call your doctor or return to the Emergency Department. Medications: Take your medications as directed by your doctor today. Before using xlxi-lgv-lsoeynu medications, ask your doctor and make sure to take the medications as directed. If you have any questions about medications, ask your doctor. Diet: Resume your normal diet as much as possible, but do not eat fried, fatty or spicy foods while you have pain. Do not drink alcohol or have caffeine. Do not smoke tobacco. Probiotics: If you have been given an antibiotic, you may want to also take a probiotic pill or eat yogurt with live cultures. Probiotics have good bacteria to help your intestines stay healthy. Studies have shown that probiotics help prevent diarrhea and other intestine problems (including C. diff infection) when you take antibiotics. You can buy these without a prescription in the pharmacy section of the store. If you were given a prescription for [...] contain Tylenol?? (acetaminophen), including Vicodin??, Tylenol #3??, Randolph??, Lortab??, and Percocet??. You should not take [...] if there is anything that worries you. LE PROCESSOR documented in this encounter Medications at Time of Discharge Medication Sig Dispensed Refills Start Date End Date albuterol (PROAIR HFA, Inhale 2 puffs into 0 PROVENTIL HFA, VENTOLIN the lungs every 6 HFA) 108 (90 BASE) MCG/ACT hours inhaler ROPINIROLE HCL PO Take 2.5 mg by 0 mouth daily SERTRALINE HCL PO Take 100 mg by 0 mouth daily ibuprofen (ADVIL,MOTRIN) Take 1 tablet (800 24 tablet 0 04/07/2014 800 MG tablet mg) by mouth every 8 hours as needed for moderate pain ondansetron (ZOFRAN ODT) 4 Take 1 tablet (4 10 tablet 0 04/02/2014 MG disintegrating tablet mg) by mouth every 8 hours as needed for nausea BuPROPion HCl (WELLBUTRIN 0 11/13/2015 PO) Ferrous Sulfate (IRON 0 SUPPLEMENT PO) Omeprazole (PRILOSEC PO) Take 40 mg by mouth 0 11/13/2015 every morning documented as of this encounter ED Notes Colette Aguiar RN - 03/30/2014 2:39 PM CST Up to bathroom. Pt tolerated well. UA obtained LE PROCESSOR Courtney Hodges MD - 03/30/2014 2:23 PM CST History Chief Complaint: Abdominal Pain HPI Lizette Serrato is a 34 year old female with a history of ovarian cysts who presents with abdominal pain. The patient reports that her marte is localized to her left lower quadrant and does not radiate. She states that it has been constant since onset and she has some associated nausea. Other than a tubal ligation, the patient denies any other abdominal surgeries. She had an normal bowel movement todayand denies any black or bloody stools or other concerns. She has been taking tylenol and Ibuprofen in an attempt to manage her pain and states that her last dose was Ibuprofen at 10:30, four hours ago. Allergies: The patient has no known drug allergies. Medications: Ropinirole Wellbutrin Prilosec Albuterol inhaler Zofran Sertraline Iron Past Medical History: Asthma Depression Restless leg syndrome Past Surgical History: Laparoscopic tubal ligation Family History: No past pertinent family history. Social History: Marital Status: The patient is a current everyday smoker (0.25 PPD). The patient is negative for alcohol use. Review of Systems Gastrointestinal: Positive for nausea and abdominal pain (LLQ). Negative for vomiting and diarrhea. All other systems reviewed and are negative. Physical Exam First Vitals: BP: 132/91 mmHg Pulse: 100 Temp: 97.7 ??F (36.5 ??C) Resp: 20 SpO2: 98 % Physical Exam General: Well-nourished, appears to be uncomfortable when I enter the room Eyes: PERRL, conjunctivae pink no scleral icterus or conjunctival injection ENT: Moist mucus membranes, posterior oropharynx clear without erythema or exudates Respiratory: Lungs clear to auscultation bilaterally, no crackles/rubs/wheezes. Good air movement CV: Normal rate and rhythm, no murmurs/rubs/gallops GI: Abdomen soft and non-distended. Normoactive BS. +LLQ tenderness, no guarding or rebound Skin: Warm, dry. No rashes or petechiae Musculoskeletal: No peripheral edema or calf tenderness Neuro: Alert and oriented to person/place/time Psychiatric: Normal affect Emergency Department Course Imaging: Radiographic findings were communicated with the patient who voiced understanding of the findings. US Pelvic Complete w/ transvaginal & Abd/Pel Duplex: FINDINGS: Uterus is normal in appearance with 0.8 cm endometrial stripe. There is no fluid identified in the endometrial cavity. There are prominent myometrial vessels. No focal fibroids. Ovaries appear normal bilaterally with normal flow in both ovaries. There are multiple cysts compatible with follicles in the left ovary the largest is 1.9 cm maximum diameter. The prior February 26, 2014 ultrasound demonstrated a 2 cm cyst compatible with follicle in the left. Doppler waveform analysis demonstrates flow to both ovaries without evidence for ovarian torsion. Smaller follicles in the right ovary. No free fluid or adnexal mass. IMPRESSION; 1.Normal-appearing uterus. 2. Ovaries appear normal bilaterally with multiple follicles, more prominent in the left ovary, the largest 1.9 cm. 3. Normal-appearing flow identified in both ovaries. DWIGHT RAZO MD Laboratory: CBC: WNL (WBC 8.7, HGB 14.1, PLT 233) CMP: WNL (creatinine 0.77) Lipase: 110 UA: mucous present, o/w negative HCG Urine: Negative Interventions: Zofran 4mg IV Toradol 30mg IV Normal Saline IV bolus, total of 1.0 L IV Emergency Department Course: 1423: Nursing notes and vitals reviewed. I performed an exam of the patient as documented above. The patient was sent for a Pelvic US while in the emergency department, findings above. Blood was drawn from the patient. This was sent for laboratory testing, findings above. Urine sample was obtained and sent for laboratory analysis, findings above. I personally reviewed the laboratory results with the Patient and answered all related questions prior to discharge. Findings and plan explained to the Patient. Patient discharged home with instructions regarding supportive care, medications, and reasons to return. The importance of close follow-up was reviewed. The patient was prescribed Advil and Zofran. Impression & Plan Medical Decision Making: This pleasant 34 year old woman comes with left lower abdominal pain. This has been a recurrent issue for her. She has a history of 2cm ovarian cyst in the area. Some nausea associated with this but noother symptoms. I do not appreciate any back pain or signs or symptoms of radicular pain. No Zoster rash. It is possible that its musculoskeletal. The patient has had a CT scan in the past for it, it was negative. She has no vomiting, fever, or diarrhea, so I think it is unlikely to be diverticulitis.White count is normal which is also reassuring. Her general labs are reassuring. She is not and there are no signs of urine infection. I have low suspicion for kidney stone given the nature ofthe pain. I feel the risks of CT imaging outweigh the benefits of CT imaging at this point given heryoung age and the radiation exposure. The patient had an US which shows small follicles, no large cysts, no signs of torsion, and no cyst large enough to suggest she is at risk for intermittent torsion. I suspect this pain is is becoming a more chronic issue for her. She has an appointment with [facility] tomorrow. I recommended she follow up with them as directed. She has received our chronic and recurrent pain policy in the past so I was not able to prescribe any prescription narcotics to go home with but I did give her prescription strength Ibuprofen as well as refilled her Zofran and a work note. She is to return if any worsening. Diagnosis: (789.00) Left sided abdominal pain (620.2) Other and unspecified ovarian cyst IBuffy, am serving as a scribe on 03/30/2014 at 2:23 PM to personally document services performed by Dr. Hodges based on my observations and the provider's statements to me. Buffy Curtis 03/30/2014 [facility] EMERGENCY DEPARTMENT Courtney Hodges MD 03/31/14 0037 LE PROCESSOR Meena Walker RN - 03/30/2014 12:46 PM CST Left lower abd pain- history of ovarian cyst. ABC Intact alert and no distress. LE PROCESSOR documented in this encounter Plan of Treatment Not on filedocumented as of this encounter Procedures Procedure Name Priority Date/Time Associated Comments Diagnosis US PELVIS COMPLETE W STAT 03/30/2014 3:51 PM R esults for this TRANSVAGINAL AND PICKLE PROCESSOR procedure a re in DOPPLER LIMITED the results section. CBC WITH PLATELETS & STAT 03/30/2014 2:40 PM R esults for this DIFFERENTIAL PICKLE PROCESSOR procedure are i n the results section. LIPASE STAT 03/30/2014 2:40 PM Results f or this PICKLE PROCESSOR procedure are i n the results section. COMPREHENSIVE STAT 03/30/2014 2:40 PM Results for this METABOLIC PANEL PICKLE PROCESSOR procedure ar e in the results section. HCG QUALITATIVE URINE STAT 03/30/2014 2:38 PM Results for this PICKLE PROCESSOR procedure are i n the results section. ROUTINE UA WITH STAT 03/30/2014 2:38 PM Result s for this MICROSCOPIC PICKLE PROCESSOR procedure are i n the results section. documented in this encounter Results US Pelvic Complete w Transvaginal & Abd/Pel Duplex Limited (03/30/2014 3:51 PM PICKLE PROCESSOR) Anatomical Region Laterality Modality Abdomen/Pelvis Ultrasound Specimen (Source) Anatomical Location Collection Method / Collectio n Time Received Time / Laterality Volume Narrative 03/30/2014 3:58 PM PICKLE PROCESSOR PELVIC ULTRASOUND 03/30/2014 3:51 PM HISTORY: Pelvic pain, COMPARISON; pelvic ultrasound 02/26/2014 TECHNIQUE: Transabdominal and endovagina l technique to better visualize endometrial stripe and adnexa. FINDINGS: Uterus is normal in appearance with 0.8 cm endometrial stripe. There is no fluid identified in the endometrial cavity. There are prominent myometrial vessels. No foc al fibroids. Ovaries appear normal bilaterally with n ormal flow in both ovaries. There are multiple cysts compatible with follicles in the left ovary the largest is 1.9 cm maximum diameter. The prior February 26, 2014 ultrasound demonstrated a 2 cm cyst comp atible with follicle in the left. ??Doppler waveform analysis demons trates flow to both ovaries without evidence for ovarian torsion. Sm aller follicles in the right ovary. No free fluid or adnexal mass. IMPRESSION; 1.Normal-appearing uterus. 2. Ovaries appear normal bilaterally wit h multiple follicles, more prominent in the left ovary, the largest 1.9 cm. 3. Normal-appearing flow identified in b oth ovaries. DWIGHT RAZO MD Procedure Note Dwight Razo MD - 03/30/2014For matting of this note might be different from the original. PELVIC ULTRASOUND 03/30/2014 3:51 PM HISTORY: Pelvic pain, COMPARISON; pelvic ultrasound 02/26/2014 TECHNIQUE: Transabdominal and endovagina l technique to better visualize endometrial stripe and adnexa. FINDINGS: Uterus is normal in appearance with 0.8 cm endometrial stripe. There is no fluid identified in the endometrial cavity. There are prominent myometrial vessels. No foc al fibroids. Ovaries appear normal bilaterally with n ormal flow in both ovaries. There are multiple cysts compatible with follicles in the left ovary the largest is 1.9 cm maximum diameter. The prior February 26, 2014 ultrasound demonstrated a 2 cm cyst comp atible with follicle in the left. Doppler waveform analysis demonstr ates flow to both ovaries without evidence for ovarian torsion. Sm aller follicles in the right ovary. No free fluid or adnexal mass. IMPRESSION; 1.Normal-appearing uterus. 2. Ovaries appear normal bilaterally wit h multiple follicles, more prominent in the left ovary, the largest 1.9 cm. 3. Normal-appearing flow identified in b oth ovaries. DWIGHT RAZO MD Courtney Hodges MD [facility] [place] US ORDERABLES Lipase (03/30/2014 2:40 PM PICKLE PROCESSOR) athologist Signature Lipase 110 73 - 393 [facility] U/L [facility] Comment: Effective 11/10/2013, the reference range for this assay has changed to reflect new instrumentation/methodology. Specimen Anatomical Collection Method Collection Time Receive d Time (Source) Location / / Volume Laterality Blood specimen 03/30/2014 2:40 PM 014 2:56 (specimen) PICKLE PROCESSOR PM PICKLE PROCESSOR Courtney Hodges MD LAB - BLOOD ORDERABLES Performing Organization Address City/State/ZIP Code Phon e Number M [facility] [address], [place] [address] [facility] Comprehensive metabolic panel (03/30/2014 2:40 PM PICKLE PROCESSOR) athologist Signature Sodium 135 133 - 144 [place] mmol/L [facility] Potassium 4.0 3.4 - 5.3 [place] mmol/L [facility] Chloride 105 94 - 109 [place] mmol/L [facility] Carbon Dioxide 26 20 - 32 [place] mmol/L [facility] Anion Gap 4 3 - 14 [place] mmol/L [facility] Glucose 97 70 - 99 [place] mg/dL [facility] Comment: Effective 11/10/2013, the reference range for this assay has changed to reflect new instrumentation/methodology. Urea Nitrogen 17 7 - 30 mg/dL [facility] Comment: Effective 11/10/2013, the reference range for this assay has changed to reflect new instrumentation/methodology. Creatinine 0.77 0.52 - 1.04 mg/dL [facility] GFR Estimate 87 >60 mL/min/1.7m2 [facility] Comment: Non GFR Calc GFR Estimate If Black >90 >60 mL/min/1.7m2 [facility] GFR Calc [facility] Calcium 8.6 8.5 - 10.1 mg/dL [facility] Comment: Effective 11/10/2013, the reference range for this assay has changed to reflect new instrumentation/methodology. Bilirubin Total 0.3 0.2 - 1.3 mg/dL [facility] Albumin 3.8 3.4 - 5.0 g/dL [facility] Protein Total 7.1 6.8 - 8.8 g/dL [facility] Alkaline Phosphatase 80 40 - 150 U/L [facility] ALT 34 0 - 50 U/L [facility] AST 23 0 - 45 U/L [facility] Specimen Anatomical Collection Method Collection Time Receive d Time (Source) Location / / Volume Laterality Blood specimen 03/30/2014 2:40 PM 014 2:56 (specimen) PICKLE PROCESSOR PM PICKLE PROCESSOR Courtney Hodges MD LAB - BLOOD ORDERABLES Performing Organization Address City/State/ZIP Code Phon e Number M [facility] [address], [place] [address] [facility] CBC with platelets differential (03/30/2014 2:40 PM PICKLE PROCESSOR) [facility] gist Method Time Signature WBC 8.7 4.0 - [place] 11.0 [facility] 10e9/L [facility] RBC Count 4.70 3.8 - 5.2 [place] 10e12/L [facility] Hemoglobin 14.1 11.7 - [place] 15.7 g/dL [facility] Hematocrit 41.0 35.0 - [place] 47.0 % [facility] MCV 87 78 - 100 [place] fl [facility] MCH 30.0 26.5 - [place] 33.0 pg [facility] MCHC 34.4 31.5 - [place] 36.5 g/dL [facility] RDW 13.1 10.0 - [place] 15.0 % [facility] Platelet Count 233 150 - 450 [place] 10e9[facility] Diff Method Automated [facility] % Neutrophils 68.9 % [facility] % Lymphocytes 23.0 % [facility] % Monocytes 6.6 % [facility] % Eosinophils 1.2 % [facility] % Basophils 0.1 % [facility] % Immature 0.2 % [place] Granulocytes [facility] Absolute 6.0 1.6 - 8.3 [place] Neutrophil 10e9/[facility] Absolute 2.0 0.8 - 5.3 [place] Lymphocytes [address] LAB Absolute 0.6 0.0 - 1.3 [place] Monocytes [address] [place] [address] LAB Absolute 0.1 0.0 - 0.7 [place] Eosinophils [address] LAB Absolute 0.0 0.0 - 0.2 [place] Basophils 10e9[facility] Abs Immature 0.0 0 - 0.4 [place] Granulocytes [address] [place] [address] LAB Specimen Anatomical Collection Method Collection Time Receive d Time (Source) Location / / Volume Laterality Blood specimen 03/30/2014 2:40 PM 014 2:56 (specimen) PICKLE PROCESSOR PM PICKLE PROCESSOR Courtney Hodges MD LAB - BLOOD ORDERABLES Performing Organization Address City/State/ZIP Code Phon e Number M [place] [address], [place] [address] [facility] [facility]INIC LAB HCG qualitative urine (03/30/2014 2:38 PM PICKLE PROCESSOR) athologist Signature HCG Qual Urine Negative NEG [facility] Specimen Anatomical Collection Method Collection Time Receive d Time (Source) Location / / Volume Laterality Urine specimen 03/30/2014 2:38 PM 014 2:55 (specimen) PICKLE PROCESSOR PM PICKLE PROCESSOR Courtney Hodges MD LAB - URINE ORDERABLES Performing Organization Address [facility] Phon e Number M [facility] [address], [place] [address] [facility] (ABNORMAL) UA with Microscopic (03/30/2014 2:38 PM PICKLE PROCESSOR) [facility] Method Time Signature Color Urine Yellow [facility] Appearance Urine Clear [facility] Glucose Urine Negative NEG mg/dL [facility] Bilirubin Urine Negative NEG [facility] Ketones Urine Negative NEG mg/dL [facility] Specific [place] 1.016 1.003 - [place] Urine 1.035 [facility] Blood Urine Negative NEG [facility] pH Urine 5.5 5.0 - 7.0 [place] pH [facility] Protein Albumin Negative NEG mg/dL [facility] Urobilinogen Normal 0.0 - 2.0 [place] mg/dL mg/dL [facility] Nitrite Urine Negative NEG [facility] Leukocyte Negative NEG [place] Esterase [facility] Source Midstream [facility] WBC Urine 0 0 - 2 [place] /[facility] RBC Urine 1 0 - 2 [place] /[facility] Squamous <1 0 - 1 [place] Epithelial /HPF /HPF [facility] Mucous Urine Present (A) NEG /LPF [facility] Specimen Anatomical Collection Method Collection Time Receive d Time (Source) Location / / Volume Laterality Urine specimen 03/30/2014 2:38 PM 014 2:55 (specimen) PICKLE PROCESSOR PM PICKLE PROCESSOR Courtney Hodges MD LAB - URINE ORDERABLES Performing Organization Address [facility] e Number [address] [facility] documented in this encounter Visit Diagnoses Diagnosis Left sided abdominal pain Abdominal pain, unspecified site Other and unspecified ovarian cyst documented in this encounter Administered Medications Inactive Administered Medications - up to 3 most recent administrations Medication Order MAR Action Action Date Dose Rate Site ketorolac (TORADOL) injection 30 mg Given 03/30/2014 2:55 PM PICKLE PROCESSOR 30 mg 30 mg, Intravenous, ONCE, On Fri03/30/14 at 1427, For 1 dose, Do not give within 6 hours of Ibuprofen. ondansetron (ZOFRAN) injection 4 mg Given 03/30/2014 2:54 PM PICKLE PROCESSOR 4 mg 4 mg, Intravenous, EVERY 30 MIN PRN, nausea, vomiting, Administer over 2-5 Minutes, Starting on Fri03/30/14 at 1426, For 3 doses, May repeat in 30 minutes as needed, up to 3 doses. sodium chloride 0.9 % BOLUS New Bag 03/30/2014 2:48 PM PICKLE PROCESSOR 1,000 m Ls 1000 mL/hr 1,000 mL Intravenous, 1,000 mL, ONCE, at 1,000 mL/hr, Administer over 1 Hours, On Fri03/30/14 at 1427, For 1 dose documented in this encounter Active and Recently Administered Medications Times are shown in PICKLE PROCESSOR. Scheduled Medication Order 03/28/2014 03/29/2014 03/30/2014 ketorolac (TORADOL) injection 30 mg (COMPLETED) 1455 (Given - Provider: Colette Aguiar, ANGE) 30 mg, Intravenous, ONCE, Fri03/30/14 a t 1427, For 1 dose, Do not give within 6 hours of Ibuprofen. sodium chloride 0.9 % BOLUS 1,000 mL (COMPLETED) 1448 (New Bag - Provider: Colette Aguiar, ANGE)1632 (Stopped - Provider: Brittney Feldman RN) Intravenous, 1,000 mL, ONCE, at 1,000 mL /hr, Administer over 1 Hours, On Fri03/30/14 at 1427, For 1 dose PRN Medication Order 03/28/2014 03/29/2014 03/30/2014 ondansetron (ZOFRAN) injection 4 mg (CANCELED) 1454 (Given - Provider: Colette Aguiar, RN) 4 mg, Intravenous, EVERY 30 MIN PRN, amador sea, vomiting, for 2 Minutes, Starting Fri03/30/14 at 1426, For 3 doses, May repeat in 30 minutes as needed, up to 3 doses. documented in this encounter Care Teams [employer] Relationship Specialty Start Date End Date Jamin Silva MD PCP - General Family Medicine - Sports 06/01/13 Medicine documented as of this encounter
--- OUTSIDE RECORDS SUMMARY | 2021-11-21 01:56 | XMS_ITS | Encounter Summary ---
:1980 Author Organization [place] Address [facility] [place] [address] Care Team Providers Name Role Phone Jamin Silva MD Primary Care Provider Reason for Visit Reason Comments Abdominal Pain Encounter Details Date Type Department Care Team Description 02/01/2015 Emergency [facility] Roberto Carlos Escobedo C hronic abdominal pain; [facility] Emergency Dep t PID (acute pelvic inflammatory disease); [address] [facility] Bacterial vaginosis [facility] [id number] [address] [facility] [phone] [place], [place] [address] (Wo rk) Social History Tobacco Use Types Packs/Day Years Used Date Current Some Day Smoker 0.25 Alcohol Use Standard Drinks/Week Comments No 0 (1 standard drink = 0.6 oz pure alcoho l) Sex Assigned at Date Recorded Not on file documented as of this encounter Last Filed Vital Signs Vital Sign Reading Time Taken Comments Blood Pressure 132/86 02/01/2015 11:11 AM CDT Pulse 79 02/01/2015 11:11 AM CDT Temperature 36.6 ??C (97.8 ??F) 02/01/2015 11:11 AM CDT Respiratory Rate 16 02/01/2015 11:11 AM CDT Oxygen Saturation 99% 02/01/2015 11:11 AM CDT Inhaled Oxygen Concentration - - Weight 77.1 kg (170 lb) 02/01/2015 11:11 AM CDT Height 167.6 cm (5' 6) 02/01/2015 11:11 AM CDT Body Mass Index 27.44 02/01/2015 11:11 AM CDT documented in this encounter Discharge Instructions Discharge InstructionsMatthews, Roberto Carlos R, MD - 02/01/2015 11:41 AM CDT Discharge Instructions Chronic Pain You were seen today for an issue regarding chronic or recurrent pain. You may have a condition that gives you pain every day, or a condition that causes pain that keeps coming back, or several conditions involving pain. Many patients with chronic or recurrent pain come to the Emergency Department thinking that a shot of narcotic pain medicine or a prescription for pain pills to take home is the best answer to their problem. We have discovered, though, that these approaches put our patients at high risk of long-term problems. This sort of treatment may actually make your pain worse, make it harder to control, and putyou at an unacceptable risk of complications. Because of the risks, we are very hesitant to treat your type of pain with short-acting or potentially habit-forming medications. These medications represent a significant risk to your health, and needto be managed by a physician who can follow your care consistently. We have established a policy forthe treatment of patients with chronic or recurrent pain that does not allow for treatment with injection narcotics or take-home prescriptions for narcotics. We will treat your symptoms with non-narcotic medications and other treatments, and we will make referrals to pain specialists or other specialized providers if we think such referrals would benefit you. You should expect to receive treatment consistent with this policy during future visits. If you have concerns about our policy, please discuss them with your primary care provider or pain specialist, who can contact us if necessary for further information or clarification. If you were given a prescription for [...] call or return to the Emergency Department. Remember that you can always come back to the Emergency Department if you develop any new symptoms or if there is anything that worries [...] directed by your doctor today. Before using nlog-vch-yadofns medications, ask your doctor and make sure [...] call or return to the Emergency Department. AttachmentsThe following attachments cannot be sent through Care Everywhere. PELVIC INFLAMMATORY DISEASE (FIJIAN)VAGINITIS, BACTERIAL (FIJIAN)documented in this encounter Medications at Time of Discharge Medication Sig Dispensed Refills Start Date End Date albuterol (PROAIR HFA, Inhale 2 puffs into 0 PROVENTIL HFA, VENTOLIN the lungs every 6 HFA) 108 (90 BASE) hours MCG/ACT inhaler ROPINIROLE HCL PO Take 2.5 mg by 0 mouth daily SERTRALINE HCL PO Take 100 mg by 0 mouth daily metroNIDAZOLE (FLAGYL) Take 1 tablet (500 14 tablet 1 02/0102/08/2015 500 MG tablet mg) by mouth 2 times daily for 7 days BuPROPion HCl (WELLBUTRIN 0 11/13/2015 PO) doxycycline (VIBRAMYCIN) Take 1 capsule (100 28 capsule 0 03/07/2015 100 MG capsule mg) by mouth 2 times daily Omeprazole (PRILOSEC PO) Take 40 mg by mouth 0 11/13/2015 every morning documented as of this encounter ED Notes Mae Neil RN - 02/01/2015 11:38 AM CDT Assisted w/pelvic exam. Pt tolerated well. Roberto Carlos Escobedo MD - 02/01/2015 11:22 AM CDT History Chief Complaint: Abdominal Pain HPI Lizette Serrato is a 35 year old female who presents to the emergency department today with abdominal pain. The patient reports diagnostic and therapeutic laparoscopy for endometriosis in July of thisyear and has subsequently experienced worse pain since the surgery. 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 The patient reports that the pain is in the left lower quadrant, radiating around to the left side of herback and currently rates the pain at 9/10 in severity. Additionally, she notes having nausea, but denies any emesis at this time. She reports that she took Ibuprofen at around 0630 which provided no relief. She has had pain over the last year and has had multiple ED visits for similar pain. The patient denies any vaginal bleeding or discharge, diarrhea, dysuria or other changes in urinary or bowel habits at this time. Allergies: No Known Drug Allergies Medications: Ropinirole Wellbutrin Prilosec Albuterol Sertraline Past Medical History: Asthma Depressive disorder Restless leg syndrome Past Surgical History: Laparoscopic tubal ligation Endometrial surgery Family History: History reviewed. No pertinent family history. Social History: The patient was accompanied to the ED by her mother and kids. Smoking Status: Current Some Day Smoker Alcohol Use: Negative PCP is Dr. Trent Review of Systems Gastrointestinal: Positive for nausea and abdominal pain (LLQ). Negative for vomiting, diarrhea, constipation and blood in stool. Genitourinary: Negative for dysuria, urgency, frequency, hematuria and difficulty urinating. Musculoskeletal: Positive for back pain (Left side, lower). All other systems reviewed and are negative. Physical Exam First Vitals: BP: 132/86 mmHg Pulse: 79 Heart Rate: 79 Temp: 97.8 ??F (36.6 ??C) Resp: 16 Height: 167.6 cm (5' 6) Weight: 77.111 kg (170 lb) SpO2: 99 % Physical Exam Constitutional: Pleasant, age appropriate. Resting comfortably in the bed. HEENT: Oropharynx is moist, without lesions or trismus. Eyes: Conjunctiva normal, PERRL Neck: Supple, no meningismus. CV: Regular rate and rhythm. No murmurs, rubs or gallops. No lower extremity edema. PULM: Clear to auscultation bilaterally. No respiratory distress. Good air exchange. No rales or wheezing. No stridor. ABD: Soft, non-distended. Mild tenderness in the midline low abdomen and LLQ. Bowel sounds normal. No pulsatile masses. No rebound, guarding or rigidity. No CVA tenderness. No hepatosplenomegaly. : Normal external genitalia. No perineal lesions. No blood in the in the vaginal vault. Small amount of yellow/green cervical discharge. + cervical motion tenderness. Uterus is not enlarged. Left adnexal tenderness. No adnexal mass. MSK: No gross deformity to all four extremities. LYMPH: No cervical lymphadenopathy. NEURO: Alert. Good muscular tone, no atrophy. Strength is equal and symmetric. Skin: Warm, dry and intact. Psych: Mood is good and affect is appropriate. Emergency Department Course Laboratory: Laboratory findings were communicated with the patient who voiced understanding of the findings. UA: Mucous Present (A) HCG qualitative urine: Negative Wet prep: Clue cells seen, Few WBC's seen (A) o/w normal Neisseria gonorrheae: Pending Chlamydia trachomatis: Pending Interventions: 1203 Percocet 325 mg Oral 1214 Zofran 8 mg Oral 1214 Rocephin 250 mg IM 1214 Toradol 60 mg IM 1253 Percocet 325 mg Oral Emergency Department Course: Nursing notes and vitals reviewed. I performed an exam of the patient as documented above. The patient provided a urine sample here in the emergency department. This was sent for laboratory testing, findings above. I discussed the treatment plan with the [...] were answered. I personally reviewed the laboratory results with the patient and answered all related questions prior to discharge. Impression & Plan Medical Decision Making: Lizette Serrato is a 35 year old female with a history of chronic pelvic pain secondary to endometriosis who presents to the emergency department today with increasing left lower quadrant pain consistent with her chronic endometriosis. On examination, she does have signs of vaginitis and cervicitis. Wet prep reveals bacterial vaginosis that will be treated with Flagyl. She did have cervical motion tenderness with mild discharge, thus was given Ceftriaxoce and will be discharged home on Doxycyline. Her examination is not consistent with TOA, ovarian cyst or torsion. She has had six pelvic ultrasoundin the last year, thus not repeated today. She was given two Percocet in the emergency department. Iexplained that I would not be able to send her home with opoid medication due to the chronicity of her pain. I recommended Ibuprofen and Tylenol for pain and to follow up with her OBGYN for further treatment. Diagnosis: 1. (R10.9, G89.29) Chronic abdominal pain 2. (N73.0) PID (acute pelvic inflammatory disease) 3. (N76.0, A49.9) Bacterial vaginosis Discharge Medications: Flagyl Vibramycin Scribe Disclosure: I, Cayden Jass, am serving as a scribe at 11:26 AM on 02/01/2015 to document services personally performed by Roberto Carlos Escobedo MD, based on my observations and the provider's statements to me. 02/01/2015 [facility] EMERGENCY DEPARTMENT Roberto Carlos Escobedo MD 02/01/15 1254 Natalia Coon RN - 02/01/2015 11:14 AM CDT Lower abdominal pain for the past 3 days. Pain similar to endometriosis pain in the past. Patient alert and oriented x3. Airway, breathing and circulation intact. documented in this encounter Plan of Treatment Not on filedocumented as of this encounter Procedures Procedure Name Priority Date/Time Associated Comments Diagnosis HCG QUALITATIVE URINE STAT 02/01/2015 12:15 Chronic abdomin al Results for this PM CDT pain procedure are i n the results section. ROUTINE UA WITH STAT 02/01/2015 12:15 Chronic abdominal Res ults for this MICROSCOPIC PM CDT pain procedure are i n the results section. WET PREPARATION STAT 02/01/2015 11:38 Chronic abdominal Res ults for this AM CDT pain procedure are i n the results section. NEISSERIA GONORRHOEAE STAT 02/01/2015 11:38 Chronic abdomin al Results for this PCR AM CDT pain procedure are i n the results section. CHLAMYDIA TRACHOMATIS STAT 02/01/2015 11:38 Chronic abdomin al Results for this PCR AM CDT pain procedure are i n the results section. documented in this encounter Results HCG qualitative urine (02/01/2015 12:15 PM CDT) P athologist Signature HCG Qual Urine Negative NEG [facility] Specimen Anatomical Collection Method Collection Time Receive d Time (Source) Location / / Volume Laterality Urine specimen URINE SPECIMEN 02/01/2015 12:15 015 (specimen) OBTAINED BY CLEAN PM CDT 12:27 PM C DT CATCH PROCEDURE / Unknown Roberto Carlos Escobedo MD LAB - URINE ORDERABLES Performing Organization Address City/[facility]/ZIP [facility] Phon e Number M [facility] [address] [place], [place] [address] [facility] [address] [phone] (ABNORMAL) Routine UA with microscopic (02/01/2015 12:15 PM CDT) [facility] Method Time Signature Color Urine Light Yellow [facility] Appearance Urine Clear [facility] Glucose Urine Negative NEG mg/dL [facility] Bilirubin Urine Negative NEG [facility] Ketones Urine Negative NEG mg/dL [facility] Specific [place] 1.016 1.003 - [place] Urine 1.035 [facility] Blood Urine Negative NEG [facility] pH Urine 6.0 5.0 - 7.0 [place] pH [facility] Protein Albumin Negative NEG mg/dL [facility] Urobilinogen Normal 0.0 - 2.0 [place] mg/dL mg/dL [facility] Nitrite Urine Negative NEG [facility] Leukocyte Negative NEG [place] Esterase Urine [facility] Source Midstream [facility] WBC Urine 0 0 - 2 [place] /[facility] RBC Urine 1 0 - 2 [place] /[facility] Squamous 1 0 - 1 [place] Epithelial /HPF /[facility] Mucous Urine Present (A) NEG /LPF [facility] Specimen Anatomical Collection Method Collection Time Receive d Time (Source) Location / / Volume Laterality Urine specimen URINE SPECIMEN 02/01/2015 12:15 015 (specimen) OBTAINED BY CLEAN PM CDT 12:27 PM C DT CATCH PROCEDURE / Unknown Roberto Carlos Escobedo MD LAB - URINE ORDERABLES Performing Organization Address City/[facility]/ZIP [facility] Phon e Number M [facility] [address] [place], [place] [address] [facility] [address] [place] [address], [facility] [[email or web address]] [phone] Chlamydia trachomatis PCR (02/01/2015 11:38 AM CDT) Component Value Ref Test Analysis Performed At [facility] Method Time Signature Specimen Vagina [facility] Chlamydia Negative [facility]G [facility] Trachomatis Negative for C. trachomatis rRNA by chemistry technician mediated amplification. [facility] PCR A negative result by transc ription mediated amplification does not preclude the [facility] presence of C. trachomatis infection because re sults are dependent on proper BANK and adequate collection, absence of inhibitors, and suffici ent rRNA to be detected. Specimen (Source) Anatomical Collection Method Collection Time Re ceived Time Location / / Volume Laterality Endocervical swab 02/01/2015 11:38 2014 (procedure) AM CDT 11:40 AM CDT Roberto Carlos Escobedo MD LAB - MICRO GENERAL ORDERABL ES Performing Organization Address City/[facility]/ZIP Code Phon e Number [address] [place] [address], [facility] [[email or web address]] [phone] Neisseria gonorrhoeae PCR (02/01/2015 11:38 AM CDT) Component Value Ref Test Analysis Performed At [facility] Method Time Signature Specimen Vagina [facility] N Gonorrhea Negative NEG [facility] PCR Negative for N. gonorrhoeae rRNA by transcripti on mediated amplification. [facility] A negative result by transc ription mediated amplification does not preclude the [facility] presence of N. gonorrhoeae infection because re sults are dependent on proper BANK and adequate collection, absence of inhibitors, and suffici ent rRNA to be detected. Specimen Anatomical Collection Method Collection Time Receive d Time (Source) Location / / Volume Laterality Vaginal swab 02/01/2015 11:38 02/01/2015 (specimen) AM CDT 11:40 AM CDT Roberto Carlos Escobedo MD LAB - MICRO GENERAL ORDERABL ES Performing Organization Address City/[facility]/ZIP Code Phon e Number [id number] [place] [address] [address] [place] [address], [facility] [[email or web address]] [phone] (ABNORMAL) Wet prep (02/01/2015 11:38 AM CDT) Patholo gist Method Time Signature Specimen Vagina [facility] Wet Prep No Trichomonas seen [place] Clue cells seen [facility] No yeast seen [facility] Few WBC'S seen (A) Micro Report FINAL [place] Status 02/01/2015 [facility] Specimen Anatomical Collection Method Collection Time Receive d Time (Source) Location / / Volume Laterality Specimen from 02/01/2015 11:38 02/01/2015 vagina AM CDT 11:39 AM CDT (specimen) Roberto Carlos Escobedo MD LAB - MICRO GENERAL ORDERABL ES Performing Organization Address City/State/ZIP Code Phon e Number M [place] [address] [place], [place] [address] [facility] [address] [place], [place] [address] [place] [address] documented in this encounter Visit Diagnoses Diagnosis Chronic abdominal pain Abdominal pain, unspecified site PID (acute pelvic inflammatory disease) Acute parametritis and pelvic cellulitis Bacterial vaginosis Vaginitis and vulvovaginitis, unspecifie d documented in this encounter Administered Medications Inactive Administered Medications - up to 3 most recent administrations Medication Order MAR Action Action Date Dose Rate Site cefTRIAXone (ROCEPHIN) injection Given 02/01/2015 12:14 PM CDT 2 50 mg 250 mg STAT, 250 mg, Intramuscular, ONCE, On Fri02/01/15 at 1141, For 1 dose, Indications: PID ketorolac (TORADOL) injection 60 mg Given 02/01/2015 12:14 PM CDT 60 mg 60 mg, Intramuscular, ONCE, On Fri02/01/15 at 1130, For 1 dose ondansetron (ZOFRAN-ODT) disintegrating tablet Given 1 12:14 PM CDT 8 mg 8 mg 8 mg, Oral, ONCE, On Fri02/01/15 at 1130, For 1 dose, With dry hands, peel back foil backing and gently remove tablet; do not push oral disintegrating tablet through foil backing; administer immediately on tongue and oral disintegrating tablet dissolves in seconds; then swallow with saliva; liquid not required. oxyCODONE-acetaminophen (PERCOCET) 5-325 Given 02/01/2015 12 :03 PM CDT 1 tablet MG per tablet 1 tablet 1 tablet, Oral, ONCE, On Fri02/01/15 at 1130, For 1 dose, Maximum acetaminophen dose from all sources= 75 mg/kg/day not to exceed 4 grams oxyCODONE-acetaminophen (PERCOCET) 5-325 Given 02/01/2015 12 :55 PM CDT 1 tablet MG per tablet 1 tablet 1 tablet, Oral, ONCE, On Fri02/01/15 at 1244, For 1 dose, Maximum acetaminophen dose from all sources= 75 mg/kg/day not to exceed 4 grams documented in this encounter Active and Recently Administered Medications Times are shown in CDT. Scheduled Medication Order 01/30/2015 01/31/2015 02/01/2015 cefTRIAXone (ROCEPHIN) injection 250 mg (COMPLETED) 1214 (Given - Provider: Meena Walker RN) 250 mg, Intramuscular, ONCE, Fri02/01/15 at 1141, For 1 dose, Indications: PID ketorolac (TORADOL) injection 60 mg (COMPLETED) 1214 (Given - Provider: Meena Walker RN) 60 mg, Intramuscular, ONCE, Fri02/01/15 at 1130, For 1 dose ondansetron (ZOFRAN-ODT) disintegrating tablet 8 mg (COMPLETED) 1214 (Given - Provider: Meena Walker RN) 8 mg, Oral, ONCE, Fri02/01/15 at 1130, For 1 dose, With dry hands, peel back foil backing and gently remove tablet; do not push oral disintegrating tablet through foil backing; administer immediately o n tongue and oral disintegrating tablet dissolves in seconds; then swallow with saliva; liquid not required. oxyCODONE-acetaminophen (PERCOCET) 5-325 MG per tablet 1 tablet (COMPLETED) 1203 (Given - Provider: Meredith Garcia RN) 1 tablet, Oral, ONCE, Fri02/01/15 at 11 30, For 1 dose, Maximum acetaminophen dose from all sources= 75 mg/kg/day not to exceed 4 grams oxyCODONE-acetaminophen (PERCOCET) 5-325 MG per tablet 1 tablet (COMPLETED) 1255 (Given - Provider: Meredith Garcia RN) 1 tablet, Oral, ONCE, Fri02/01/15 at 12 44, For 1 dose, Maximum acetaminophen dose from all sources= 75 mg/kg/day not to exceed 4 grams documented in this encounter Care Teams Remarketing Manager Relationship Specialty Start Date End Date Jamin Silva MD PCP - General Family Medicine - Sports 06/01/13 Medicine documented as of this encounter
--- OUTSIDE RECORDS SUMMARY | 2021-11-21 01:56 | XMS_ITS | Encounter Summary ---
:1980 Author Organization [place] Address [facility] [place] [address] Care Team Providers Name Role Phone Clinic, [facility] Primary Care Provide r Reason for Visit Reason Comments Shoulder Pain Encounter Details Date Type Department Care Team Description 12/30/2020 [facility] Quintin Houser, Jairo confederated goshute pain of left shoulder (Primary Dx); [facility] Emergency Dep t MD Dar[place], initial encounter [address] [facility] [place], [place] [id number] [address] [phone] [address] [place], [place] [address] (Wo rk) Social History Tobacco Use Types Packs/Day Years Used Date Current Some Day Smoker 0.25 Alcohol Use Standard Drinks/Week Comments Yes 0 (1 standard drink = 0.6 oz pure alcoho l) Sex Assigned at Date Recorded Not on file COVID-19 Exposure Response Date Recorded In the last month, have you been in contact with No / Unsure 12/30/2020 5:15 PM CDT someone who was confirmed or suspected to have Coronavirus / COVID-19? documented as of this encounter Last Filed Vital Signs Vital Sign Reading Time Taken Comments Blood Pressure 106/76 12/30/2020 9:00 PM CDT Pulse 98 12/30/2020 5:16 PM CDT Temperature 36.8 ??C (98.3 ??F) 12/30/2020 5:16 PM CDT Respiratory Rate 20 12/30/2020 5:16 PM CDT Oxygen Saturation 96% 12/30/2020 8:57 PM CDT Inhaled Oxygen Concentration - - Weight - - Height - - Body Mass Index - - documented in this encounter Discharge Instructions Discharge InstructionsGloria Child MD - 12/30/2020 8:49 PM CDT Several times per day take your shoulder immobilizer off and gently roll through your available range of motion, gentle stretches, to avoid causing stiffness. I have sent some muscle relaxers to managespasms, however NSAIDs (like advil or ibuprofen) are going to be most helpful in the initial stages.Heat packs, ice packs, and rest will also be helpful. You should follow up in about one week with [facility] for rotator cuff evaluation. AttachmentsThe following attachments cannot be sent through Care Everywhere.RICE (Solomon Islander)Shoulder Immobilizer ([place] Islander)documented in this encounter Medications at Time of Discharge Medication Sig Dispensed Refills Start Date End Date albuterol (PROAIR HFA, Inhale 2 puffs 0 PROVENTIL HFA, VENTOLIN into the lungs HFA) 108 (90 BASE) MCG/ACT every 6 hours inhaler NORTRIPTYLINE HCL PO 0 ROPINIROLE HCL PO Take 2.5 mg by 0 mouth daily SERTRALINE HCL PO Take 100 mg by 0 mouth daily cyclobenzaprine (FLEXERIL) Take 1 tablet (5 21 tablet 0 01/06/2021 5 MG tablet mg) by mouth 3 times daily as needed for muscle spasms documented as of this encounter ED Notes Dorie Paulson RN - 12/30/2020 5:15 PM CDT Arrives with right side shoulder pain, states she was wrestling with her kids and heard a pop and then felt pain in her shoulder. Alert and oriented, ABCs intact, no obvious deformity. Quintin Houser MD - 12/30/2020 5:09 PM CDT Emergency Department Attending Supervision Note 12/30/2020 5:28 PM I evaluated this patient in conjunction with Dr. Child Briefly, the patient presented with left shoulder pain. Patient is right-hand dominant. She reports she was playing with her children earlier today when she fell, landing directly on her left arm/shoulder. Her shoulder was abducted against her chest. She heard a pop with her fall. Her children subsequently fell on top of her. She is noting pain emanating from her shoulder down to the level of the hand with associated tingling throughout her hand. She denies injuries to any other location. No head injury or loss of consciousness. No neck pain. She is not on anticoagulation. Denies prior surgeries toleft upper extremity. On my exam: General: Well-nourished Speaking in full sentences Sitting upright on gurney Holding left arm against torso Eyes: Conjunctiva without injection or scleral icterus Resp: Lungs CTAB No crackles, wheezing or audible rubs Good air movement CV: Normal rate, regular rhythm S1 and S2 present No murmur, gallop or rub Skin: Warm, dry, well perfused No rashes or open wounds on exposed skin MSK: LUE: No gross deformity or open wound to upper extremity Extremity warm, well-perfused with 2+ radial pulse No tenderness to palpation about trapezius or cervical paraspinal musculature No clavicular tenderness or deformity Tenderness to palpation about left shoulder girdle, humerus and wrist Cap refill <3 sec distally Able to wiggle fingers Compartments are soft throughout upper extremity Neuro: Alert Able to give thumbs up, extend at wrist, and finger abduction/adduction though limited by pain Sensation intact to light touch over radial, median, and ulnar nerve distributions, as well as axillary nerve, though less than normal per her report. She was able to remove her arm from her sleeve without difficulty Answers questions appropriately Moves all extremities equally Gait stable Psych: Normal affect, normal mood Results: XR Wrist Left G/E 3 Views Final Result IMPRESSION: Normal joint spaces and alignment. No fracture. XR Shoulder Left G/E 3 Views Final Result IMPRESSION: Normal joint spaces and alignment. No fracture. Elbow XR, G/E 3 views, left Final Result IMPRESSION: No fractures are evident. Normal alignment. No elbow joint effusion. ED course: My impression is left arm injury. Her exam demonstrates tenderness to palpation primarily involving the shoulder girdle, elbow, and wrist. She does describe tingling through the hand, though sensation is preserved over the radial, median, ulnar, and axillary nerve distributions. She does report difficulty giving the thumbs up, wrist extension, finger abduction/abduction secondary to pain though otherwise motor function is intact. X-rays are negative for fracture nor dislocation. I suspect her symptoms are possibly multifactorial including musculoligamentous contusion versus possible rotator cuff tear. Brachial plexopathy also on the differential given the mechanism of injury, though would expect this to be more likely if patient sustained a hyperextension injury about the shoulder girdle. She exhibits no pain about the neck and denies associated neck pain. For that reason I feel this is unlikelyto represent cervical radiculopathy or spinal cord injury. No signs of compartment syndrome or impair ed perfusion distally. With reasonable clinical certainty I feel she is appropriate for discharge from the ER with supportive outpatient treatment. She was placed in a shoulder immobilizer and will be discharged home with anti- inflammatories and a short course of oral Flexeril for muscle relaxation. Re commended follow-up with [facility] orth[facility]ics as an outpatient for further evaluation and consideration of MRI of the shoulder versus brachial plexus if symptoms persist or worsen. She is to return to the ER in the meantime with worsening pain, numbness, weakness or any other concerns. Questions answered prior to discharge. Diagnosis ICD-10-CM 1. Acute pain of left shoulder M25.512 2. Fall, initial encounter [id number] Quintin Houser MD Roach, Brian Donald, MD 12/30/20 [id number] Gloria Child MD - 12/30/2020 5:09 PM CDT History Chief Complaint: Shoulder Pain HPI Lizette Serrato is a 40 year old female hx of depression who presents with L shoulder pain. Was playing with her children about 30 minutes prior to arrival and and tackled by her 160# and 100# sons, fell from standing to her left side and now has pain in her left elbow, shoulder, numbness in her left hand. States she heard a pop in her shoulder immediately and immediately had limited range of motion. She has subsequently noted some pain in the side of her neck and her low back, no midline spine pain. She now presents for evaluation and intervention. She has no [facility] of [facility] or [facility], allergies to Vicodin but tolerates percocet. Review of Systems See HPI Allergies: Vicodin [Hydrocodone-Acetaminophen] Medications: albuterol (PROAIR HFA, PROVENTIL HFA, VENTOLIN HFA) 108 (90 BASE) MCG/ACT inhaler NORTRIPTYLINE HCL PO ROPINIROLE HCL PO SERTRALINE HCL PO Past Medical History: Past Medical History: Diagnosis Date ??? Depressive disorder ??? Restless leg syndrome ??? Uncomplicated asthma There are no problems to display for this patient. Past Surgical History: Past Surgical History: Procedure Laterality Date ??? LAPAROSCOPIC TUBAL LIGATION Family History: No family history on file. Social History: Lives with sons, social alcohol, no smoking, no drug use Physical Exam Patient Vitals for the past 24 hrs: BP Temp Temp src Pulse Resp SpO2 12/30/20 1716 131/82 98.3 ??F (36.8 ??C) Temporal 98 20 99 % Physical Exam Vitals and nursing note reviewed. Constitutional: Appearance: Normal appearance. HENT: Head: Normocephalic. Mouth/Throat: Mouth: Mucous membranes are moist. Pharynx: Oropharynx is clear. Eyes: Extraocular Movements: Extraocular movements intact. Conjunctiva/sclera: Conjunctivae normal. Pupils: Pupils are equal, round, and reactive to light. Neck: Comments: Mild tenderness to L lateral neck/trapezius, no midline C/T/L spine tenderness. LUE: Mildly tender clavicle and scapula nontender, mild AC joint tenderness and anterior GH joint tenderness, no posterior tenderness. No Deformity noted. Shrug intact. Limited External rotation to 60 degrees due to pain. Elbow joint diffusely tender but no effusion or deformity noted, pronation/supanation intact. Wrist flexion intact, extension limited to 45 degrees by pain. Finger extension/flexionfull and intact. Radial pulses 2+ and symmetric, cap refill <2sec, responds to light touch in allfingers but reports tingling from wrist down. No snuffbox tenderness, no wrist tenderness. Cardiovascular: Rate and Rhythm: Normal rate. Pulses: Normal pulses. Pulmonary: Effort: Pulmonary effort is normal. Comments: Speaking in full sentences on room air Musculoskeletal: Cervical back: Normal range of motion. Skin: Capillary Refill: Capillary refill takes less than 2 seconds. Comments: No abrasions or ecchymosis noted in upper extremities Neurological: Mental Status: She is alert. Emergency Department Course Imaging: XR Wrist Left G/E 3 Views Final Result IMPRESSION: Normal joint spaces and alignment. No fracture. XR Shoulder Left G/E 3 Views Final Result IMPRESSION: Normal joint spaces and alignment. No fracture. Elbow XR, G/E 3 views, left Final Result IMPRESSION: No fractures are evident. Normal alignment. No elbow joint effusion. Emergency Department Course: Reviewed: I reviewed nursing notes, vitals and past history Assessments: 1726 I obtained history and examined the patient as noted above. 1999 Reviewed imaging, no fractures appreciated to my read. Patient with persistent pain, offered sling, heat pack, tylenol. 2033 Reviewed imaging, no fractures or joint space abnormalities noted. Incomplete pain relief and persistent ROM deficits. Patient will be discharged to home with shoulder immobilizer, recommend follow up with [facility] in about a week for further evaluation. Interventions: Medications ketorolac (TORADOL) injection 15 mg (15 mg Intravenous Given 12/30/201825) cyclobenzaprine (FLEXERIL) tablet 10 mg (10 mg Oral Given 12/30/201825) acetaminophen (TYLENOL) tablet 975 mg (975 mg Oral Given 12/30/202034) oxyCODONE (ROXICODONE) tablet 5 mg (5 mg Oral Given 12/30/202034) Disposition: Discharge to home with follow up at [facility]. Impression & Plan Medical Decision Making: Lizette Serrato is a 40 year old female hx of depression who presents with L shoulder pain and popafter a fall. Ddx includes but is not limited to fracture, rotator cuff tear, AC separation, muscle strain. Exam with extensive guarding shows no deformity, tender over anterior shoulder, extensor muscle body, external rotation limited by pain, Abduction limited by pain. Vascularly intact, notes numbness below wrist but does respond to touch in all nerve distributions. Imaging shows no fracture or joint space abnormalities. Patient does have persistent ROM limitations despite pain medications, patient could have rotator cuff injury and would benefit from outpatient evaluation with [facility]. She will be discharged to home with shoulder immobilizer, return precautions, NSAIDs and flexeril with follow up recs. Covid-19 Lizette Serrato was evaluated during a global COVID-19 pandemic, which necessitated consideration that the patient might be at risk for infection with the SARS-CoV-2 virus that causes COVID-19. Applicable protocols for evaluation were followed during the patient's care. COVID-19 was considered as part of the patient's evaluation. She is fully vaccinated against COVID 19 Diagnosis: ICD-10-CM 1. Acute pain of left shoulder M25.512 2. Fall, initial encounter [id number] Discharge Medications: New Prescriptions No medications on file Gloria Child MD PGY-2 Associated attestation - Quintin Houser MD - 01/02/2021 6:40 PM CDT I saw and evaluated this patient with Dr. Child. See associated documentation listed in Epic. documented in this encounter Plan of Treatment Not on filedocumented as of this encounter Procedures Procedure Name Priority Date/Time Associated Diagnosis Comme nts XR WRIST LEFT G/E 3 STAT 12/30/2020 7:54 PM Re sults for this VIEWS CDT procedure are i n the results section. XR SHOULDER LEFT STAT 12/30/2020 7:52 PM Resul ts for this G/E 3 VIEWS CDT procedure are i n the results section. XR ELBOW LEFT G/E 3 STAT 12/30/2020 7:52 PM Re sults for this VIEWS CDT procedure are i n the results section. documented in this encounter Results XR Wrist Left G/E 3 Views (12/30/2020 7:54 PM CDT) Anatomical Region Laterality Modality Wrist, Left Wrist Left Digital Radiography Specimen (Source) Anatomical Collection Method Collection Time Re ceived Time Location / / Volume Laterality 12/30/2020 7:48 PM CDT Impressions 12/30/2020 7:59 PM CDT IMPRESSION: Normal joint spaces and alig nment. No fracture. Narrative 12/30/2020 7:59 PM CDT EXAM: XR WRIST LEFT G/E 3 VIEWS LOCATION: [facility] DATE/TIME: 12/30/2020 7:48 PM INDICATION: fall with pop and wrist limi heather ROM COMPARISON: None. Procedure Note Shon Galan MD - 12/30/2020F ormatting of this note might be different from the original. EXAM: XR WRIST LEFT G/E 3 VIEWS LOCATION: [facility] DATE/TIME: 12/30/2020 7:48 PM INDICATION: fall with pop and wrist limi heather ROM COMPARISON: None. IMPRESSION: Normal joint spaces and alig nment. No fracture. Gloria Child MD [facility] DIAGNOSTIC IMAGING ORD ERABLES XR Shoulder Left G/E 3 Views (12/30/2020 7:52 PM CDT) Anatomical Region Laterality Modality Shoulder, Left Shoulder Left Digital Radiogra phy Specimen (Source) Anatomical Collection Method Collection Time Re ceived Time Location / / Volume Laterality 12/30/2020 7:23 PM CDT Impressions 12/30/2020 7:59 PM CDT IMPRESSION: Normal joint spaces and alig nment. No fracture. Narrative 12/30/2020 7:59 PM CDT EXAM: XR SHOULDER LEFT G/E 3 VIEWS LOCATION: [facility] DATE/TIME: 12/30/2020 7:23 PM INDICATION: fell with pop and pain with ROM COMPARISON: None. Procedure Note Shon Galan MD - 12/30/2020F ormatting of this note might be different from the original. EXAM: XR SHOULDER LEFT G/E 3 VIEWS LOCATION: [facility] DATE/TIME: 12/30/2020 7:23 PM INDICATION: fell with pop and pain with ROM COMPARISON: None. IMPRESSION: Normal joint spaces and alig nment. No fracture. Gloria Child MD [facility] DIAGNOSTIC IMAGING ORD ERABLES Elbow XR, G/E 3 views, left (12/30/2020 7:52 PM CDT) Anatomical Region Laterality Modality Elbow, Left Elbow Left Digital Radiography Specimen (Source) Anatomical Collection Method Collection Time Re ceived Time Location / / Volume Laterality 12/30/2020 7:22 PM CDT Impressions 12/30/2020 7:57 PM CDT IMPRESSION: No fractures are evident. No rmal alignment. No elbow joint effusion. Narrative 12/30/2020 7:57 PM CDT EXAM: XR ELBOW LEFT G/E 3 VIEWS LOCATION: [facility] DATE/TIME: 12/30/2020 7:22 PM INDICATION: Fall with limited ROM at L e lbow COMPARISON: None. Procedure Note Shon Galan MD - 12/30/2020F ormatting of this note might be different from the original. EXAM: XR ELBOW LEFT G/E 3 VIEWS LOCATION: [facility] DATE/TIME: 12/30/2020 7:22 PM INDICATION: Fall with limited ROM at L e lbow COMPARISON: None. IMPRESSION: No fractures are evident. No rmal alignment. No elbow joint effusion. Gloria Child MD [facility] DIAGNOSTIC IMAGING ORD ERABLES documented in this encounter Visit Diagnoses Diagnosis Acute pain of left shoulder - Primary Fall, initial encounter documented in this encounter Administered Medications Inactive Administered Medications - up to 3 most recent administrations Medication Order MAR Action Action Date Dose Rate Site acetaminophen (TYLENOL) tablet 975 Given 12/30/2020 8:35 PM CDT 975 mg mg 975 mg, Oral, ONCE, On 12/30/20 at 2005, For 1 dose, Maximum acetaminophen dose from all sources = 75 mg/kg/day not to exceed 4 grams/day. cyclobenzaprine (FLEXERIL) tablet 10 mg Given 12/30/2020 6:26 PM CDT 10 mg 10 mg, Oral, ONCE, On 12/30/20 at 1755, For 1 dose ketorolac (TORADOL) injection 15 mg Given 12/30/2020 6:26 PM CDT 15 mg 15 mg, Intravenous, ONCE, On 12/30/20 at 1755, For 1 dose, Do not give within 6 hours of Ibuprofen. Can cause pain on injection. If ordered intravenously (IV) : administer through a running maintenance fluid over 1 minute followed by a flush. If patient complains of pain on injection, may dilute 15-30 mg in 5 mL and push over 1 to 2 minutes. oxyCODONE (ROXICODONE) tablet 5 mg Given 12/30/2020 8:35 PM CDT 5 mg 5 mg, Oral, ONCE, On 12/30/20 at 2035, For 1 dose documented in this encounter Active and Recently Administered Medications Times are shown in CDT. Scheduled Medication Order 12/28/2020 12/29/2020 12/30/2020 acetaminophen (TYLENOL) tablet 975 mg (COMPLETED) 2034 (Given - Provider: Anisa Gutierrez RN) 975 mg, Oral, ONCE, On 12/30/20 at 20 05, For 1 dose, Maximum acetaminophen dose from all sources = 75 mg/kg/day not to exceed 4 grams/day. cyclobenzaprine (FLEXERIL) tablet 10 mg (COMPLETED) 1825 (Given - Provider: Anisa Gutierrez RN) 10 mg, Oral, ONCE, On 12/30/20 at 1755, For 1 dose ketorolac (TORADOL) injection 15 mg (COMPLETED) 1825 (Given - Provider: Anisa Gutierrez RN) 15 mg, Intravenous, ONCE, On 12/30/20 at 1755, For 1 dose, Do not give within 6 hours of Ibuprofen. Can cause pain on injection. If ordered intravenously (IV) : administer through a running maintenan ce fluid over 1 minute followed by a flu sh. If patient complains of pain on injection, may dilute 15-30 mg in 5 mL and push over 1 to 2 minutes. oxyCODONE (ROXICODONE) tablet 5 mg (COMPLETED) 2034 (Given - Provider: Anisa Gutierrez RN) 5 mg, Oral, ONCE, On 12/30/20 at 2035, For 1 dose documented in this encounter Care Teams Brush Material Preparer Relationship Specialty Start Date End Date Clinic, [facility] PCP - General 12/30/201999 [place] [address] documented as of this encounter
--- OUTSIDE RECORDS SUMMARY | 2021-11-21 01:56 | XMS_ITS | Encounter Summary ---
:1980 Author Organization [place] Address [address] [place] [address]. [place] [address] Care Team Providers Name Role Phone Ratna Mackey MD Primary Care Provider Encounter Details Date Type Department Care Team Description 09/05/2020 Records - [facility] CONVERSION Provider, Histor ical Social History Tobacco Use Types Packs/Day Years Used Date Current Some Day Smoker 0.25 Alcohol Use Standard Drinks/Week Comments Yes 0 (1 standard drink = 0.6 oz pure alcoho l) Sex Assigned at Date Recorded Not on file documented as of this encounter Plan of Treatment Not on filedocumented as of this encounter Procedures Procedure Name Priority Date/Time Associated Diagnosis Comme nts XR ABDOMEN 2 VIEWS Routine 03/24/2000 12:00 AM Re sults for this JTAC procedure are i n the results section. documented in this encounter Results XR Abdomen 2 Views (03/24/2000 12:00 AM JTAC) Anatomical Region Laterality Modality Abdomen/Pelvis Other Specimen (Source) Anatomical Location Collection Method / Collectio n Time Received Time / Laterality Volume Narrative 03/24/2000 12:00 AM [facility] See Historical Hospital Medical Record f or documentation Procedure Note Provider, Historical - 09/05/2020Formatt ing of this note might be different from the original. 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
--- OUTSIDE RECORDS SUMMARY | 2021-11-21 01:56 | XMS_ITS | Encounter Summary ---
:1980 Author Organization [facility] Address [address] [place] [id number] Care Team Providers Name Role Phone Jamin Silva MD Primary Care Provider Reason for Visit Reason Comments Abdominal Pain Encounter Details Date Type Department Care Team Description [facility]2014 [facility] Emergency Dep t [facility] [address] [place], [place] [address] [facility] [address] [place] [address] [phone] (Wo rk) Social History Tobacco Use Types Packs/Day Years Used Date Current Every Day Smoker 0.25 Alcohol Use Standard Drinks/Week Comments No 0 (1 standard drink = 0.6 oz pure alcoho l) Sex Assigned at Date Recorded Not on file documented as of this encounter Last Filed Vital Signs Vital Sign Reading Time Taken Comments Blood Pressure 122/77 05/14/2014 5:07 PM BROKER ASSOCIATE Pulse 103 05/14/2014 12:54 PM BROKER ASSOCIATE Temperature 36.8 ??C (98.2 ??F) 05/14/2014 12:54 PM BROKER ASSOCIATE Respiratory Rate 24 05/14/2014 12:54 PM BROKER ASSOCIATE Oxygen Saturation 99% 05/14/2014 1:00 PM BROKER ASSOCIATE Inhaled Oxygen Concentration - - Weight 77.1 kg (170 lb) 05/14/2014 12:54 PM BROKER ASSOCIATE Height 167.6 cm (5' 6) 05/14/2014 12:54 PM BROKER ASSOCIATE Body Mass Index 27.44 05/14/2014 12:54 PM BROKER ASSOCIATE documented in this encounter Discharge Instructions Discharge Carlos Asencio MD - 05/14/2014 3:27 PM CST Discharge Instructions Abdominal Pain Abdominal pain can [...] passed urine in 6-8 hours. o Your infant or child starts to have dry mouth [...] directed by your doctor today. Before using [id number] medications, ask your doctor and make sure [...] contain Tylenol?? (acetaminophen), including Vicodin??, Tylenol #3??, [place]??, Lortab??, and Percocet??. You should not take [...] if there is anything that worries you. ER ASSOCIATE documented in this encounter Medications at Time of Discharge Medication Sig Dispensed Refills Start Date End Date albuterol (PROAIR HFA, Inhale 2 puffs 0 PROVENTIL HFA, into the lungs VENTOLIN HFA) 108 (90 every 6 hours BASE) MCG/ACT inhaler ROPINIROLE HCL PO Take 2.5 mg by 0 mouth daily SERTRALINE HCL PO Take 100 mg by 0 mouth daily BuPROPion HCl 0 11/13/2015 (WELLBUTRIN PO) diphenhydrAMINE Take 1 capsule (25 30 capsule 0 05/14/2014 1 (BENADRYL) 25 MG mg) by mouth every capsule 6 hours as needed for itching or allergies Ferrous Sulfate (IRON 0 SUPPLEMENT PO) Omeprazole (PRILOSEC Take 40 mg by 0 0 11/13/2015 PO) mouth every morning promethazine Place 1 20 suppository 1 05/14/2014 02/02/20 15 (PHENERGAN) 25 MG suppository (25 suppository mg) rectally every 6 hours as needed for nausea promethazine Take 1 tablet (25 15 tablet 0 05/14/201402/01 (PHENERGAN) 25 MG mg) by mouth every tablet 6 hours as needed for nausea documented as of this encounter ED Notes Meredith Garcia RN - 05/14/2014 4:22 PM CST Pt sleeping. ER ASSOCIATE Meredith Garcia RN - 05/14/2014 4:22 PM CST td ER ASSOCIATE Ailin Lucas RN - 05/14/2014 2:22 PM CST Pt to U/S at this time. ER ASSOCIATE Carlos Lee MD - 05/14/2014 1:17 PM CST History Chief Complaint: Abdominal pain HPI Lizette Serrato is a 34 year old female who presents with abdominal pain. The patient states she shehas had this abdominal pain in the past and has had multiple CT scans and ultrasounds done in the. She says this time the pain started 4 days ago and is stabbing in nature in the LLQ. She states it is the worst it has every been and she has never been crouched over on her side before. She was evaluated by her regular doctor two days ago in the clinic and they thought her pain had something to do withher tubal ligation that she had done 4 years ago. Her doctor ordered a CT scan scheduled for yesterday and this was normal. She also says she has been having some green vaginal discharge which is new and without an odor. She has never had any other abdominal surgeries besides the tubal ligation. Her last period was on 04/22 and she has never had a sexually transmitted disease except Chlamydia when she was 20 years old. She states she had a full brunch including eggs, toast and thomas. She has never had diverticulitis. She denies any fevers, nausea, vomiting, diarrhea, dysuria, or back pain. [facility] IMAGING CT ABDOMEN PELVIS W 05/13/2014 11:42 AM INDICATION: Left lower quadrant abdominal pain. TECHNIQUE: CT abdomen and pelvis. Multiplanar reformation images (MPR). IV CONTRAST: 100 mL Omnipaque-300. COMPARISON: None. FINDINGS: LUNG BASES: Negative. ABDOMEN: Liver, spleen, pancreas, adrenal glands, kidneys negative. PELVIS: Appendix normal. 3.7 cm cyst right ovary. MUSCULOSKELETAL: Negative. CONCLUSION: 1. 3.7 cm physiologic follicle right ovary. Abdomen and pelvis otherwise negative. Allergies: No Known Allergies Medications: Ropinirole HCl Wellbutrin Prilosec Albuterol Setraline HCl Iron supplement Past Medical History: Asthma Depression Restless leg syndrome Past Surgical History: Laparoscopic tubal ligation Family History: History reviewed. No pertinent family history. Social History: Marital Status: Smoking Status: Current every day smoker, 0.25 ppd Alcohol use: No Review of Systems Constitutional: Negative for fever. Gastrointestinal: Positive for abdominal pain. Negative for nausea, vomiting and diarrhea. Genitourinary: Positive for vaginal discharge. Negative for dysuria. Musculoskeletal: Negative for back pain. All other systems reviewed and are negative. Physical Exam First Vitals: Pulse: 103 Heart Rate: 103 Temp: 98.2 ??F (36.8 ??C) Resp: 24 Height: 167.6 cm (5' 6) Weight: 77.111 kg (170 lb) SpO2: 24 % Physical Exam General: Resting on the gurney HEENT: The scalp and head appear normal The pupils are equal, round, and reactive to light Extraocular muscles are intact. The nose is normal. The oropharynx is normal. Neck: Normal range of motion. No meningismus. Lungs: Clear. No rales, no wheezing. There is no tachypnea. Non-labored. Cardiac: Regular rate. Normal S1 and S2. No S3 or S4. No pathological murmur. No pericardial rub. Symmetrical peripheral pulses bilaterally. Abdomen: Tender in the LLQ but abdomen is soft, non distended. Non tender in the RLQ. No tympani. No rebound. : Normal female perineum. Normal vaginal mucosa, small amount of bright red blood on cervix otherwise normal cervix mucous, cervix is visually closed, there is no cervical tenderness, fundus is orange size and there is some left adnexal tenderness that reproduces her pain. Rectal: Clear mucous, no stool Lymph: No anterior or posterior cervical lymphadenopathy noted. MS: No swelling or pedal edema; pulses intact Neuro: Normal mentation. Normal motor and sensory exam. Psych: Awake. Alert. Normal affect. Appropriate interactions. Skin: No rash. No lesions. Emergency Department Course Imaging: Radiographic findings were communicated with the patient who voiced understanding of the findings. US Pelvic complete w/ transvaginal and abd/pel duplex limited: No torsion demonstrated. Small cyst in the right ovary. Preliminary result per radiology. Laboratory: CBC: WNL (WBC 8.3, HGB 13.4, PLT 248) CMP: calcium 8.4 (L) o/w WNL (creatinine 0.75) Lipase: 154 Lactic acid: 1.0 HCG Qual: pending UA: mucous present o/w negative Stool: occult blood: Positive (A) Wet prep: few PMNs seen, no trichomonas seen, no yeast seen, no clue cells seen. Chlamydia trachomatis: pending Neisseria gonorrhea: pending Inteventions: (1406) Benadryl 50 mg IV (1406) Toradol 30 mg IV (1406) Phenergan 12.5 mg IV Emergency Department Course: Past medical records, nursing notes, and vitals reviewed. (1342) I performed an exam of the patient as documented above. IV inserted and blood drawn. The patient was sent for a US pelvic complete w/ transvaginal and abd/pel duplex while in the emergency department, findings above. (1517) I performed a pelvic and rectal exam, see details above. (1532) I rechecked the patient. Findings and plan explained to the Patient and spouse. Patient discharged home, status improved, with instructions regarding supportive care, medications, and reasons toreturn as well as the importance of close follow-up was reviewed. I personally reviewed the laboratory results with the Patient and spouse and answered all related questions prior to discharge. Impression & Plan Medical Decision Making: This patient has a history of chronic abdominal pain. She was seen two days ago at the clinic and a CT scan with contrast was done and was negative. All of her blood work today is normal including a white count and her urine was clear. A wet prep is negative. Her stool guaiac was positive interestingly even though she has noted no melena and has no epigastric complaints, no tenderness there, only LLQdiscomfort. She admits to drinking about 60 to 64 ounces of Cola per day. Her significant other has always told her that he thinks this might be causing her a stomachache or an ulcer which I think is probably correct. However again reexamination reveals she is not tender in the epigastrium, not tender over duodenum but tender more in the LLQ. I recommended she will follow up with her [facility] and they consider doing upper endoscopy first and if that is negative then to consider doing a colonoscopy to look for other causes of bleeding such as diverticulosis, polyps or other issues that could be causing this. She is hemodynamically stable. She has normal hemoglobin unchanged from previous hemoglobins here.There is no obvious active bleeding. Diagnosis: ICD-9-CM 1. Chronic abdominal pain 789.00 338.29 New Prescriptions DIPHENHYDRAMINE (BENADRYL) 25 MG CAPSULE Take 1 capsule (25 mg) by mouth every 6 hours as needed for itching or allergies PROMETHAZINE (PHENERGAN) [address] 1 suppository (25 mg) rectally every 6 hours as needed for nausea PROMETHAZINE (PHENERGAN) 25 MG TABLET Take 1 tablet (25 mg) by mouth every 6 hours as needed for nausea Prem Turner 05/14/2014 [facility] EMERGENCY DEPARTMENT I, Prem Turner, am serving as a scribe at 1:42 PM on 05/14/2014 to document services personally performed by Dr. Lee, based on my observations and the provider's statements to me. Carlos Lee MD 05/14/14 [id number] ER ASSOCIATE Lashae Valentine RN - 05/14/2014 12:56 PM CST Patient presents with severe left lower abdominal pain, rating her pain a 10 on a 1-10 scale. Of note, patient had an abdominal CT yesterday with normal results. Pain persists, increasing in severitylast evening. ER ASSOCIATE documented in this encounter Plan of Treatment Not on filedocumented as of this encounter Procedures Procedure Name Priority Date/Time Associated Comments Diagnosis OCCULT BLOOD STOOL STAT 05/14/2014 3:24 PM Chronic abdomina l Results for this BROKER ASSOCIATE pain procedure are i n the results section. WET PREPARATION STAT 05/14/2014 3:24 PM Chronic abdominal R esults for this BROKER ASSOCIATE pain procedure are i n the results section. NEISSERIA GONORRHOEAE STAT 05/14/2014 3:24 PM Chronic abdom inal Results for this PCR BROKER ASSOCIATE pain procedure are i n the results section. CHLAMYDIA TRACHOMATIS STAT 05/14/2014 3:24 PM Chronic abdom inal Results for this PCR BROKER ASSOCIATE pain procedure are i n the results section. US PELVIS COMPLETE W STAT 05/14/2014 3:03 PM R esults for this TRANSVAGINAL AND BROKER ASSOCIATE procedure a re in DOPPLER LIMITED the results section. ROUTINE UA WITH STAT 05/14/2014 2:39 PM Chronic abdominal R esults for this MICROSCOPIC BROKER ASSOCIATE pain procedure are i n the results section. LACTIC ACID STAT 05/14/2014 2:00 PM Results f or this BROKER ASSOCIATE procedure are i n the results section. CBC WITH PLATELETS & STAT 05/14/2014 1:00 PM R esults for this DIFFERENTIAL BROKER ASSOCIATE procedure are i n the results section. LIPASE STAT 05/14/2014 1:00 PM Results f or this BROKER ASSOCIATE procedure are i n the results section. COMPREHENSIVE STAT 05/14/2014 1:00 PM Results for this METABOLIC PANEL BROKER ASSOCIATE procedure ar e in the results section. documented in this encounter Results (ABNORMAL) Stool: occult blood (05/14/2014 3:24 PM BROKER ASSOCIATE) [facility] Method Time Signature Occult Blood Positive (A) NEG [facility] Specimen Anatomical Collection Method Collection Time Receive d Time (Source) Location / / Volume Laterality Stool specimen STOOL SPECIMEN / 05/14/2014 3:24 PM 3:40 (specimen) Unknown BROKER ASSOCIATE PM BROKER ASSOCIATE Carlos Lee MD LAB - STOOLS ORDERABLES Performing Organization Address City/[facility]/ZIP [facility] Phon e Number [place] [address] [address] [address] [place] [address] [address] [address] 7 Neisseria gonorrhoea PCR (05/14/2014 3:24 PM BROKER ASSOCIATE) Component Value Ref Test Analysis Performed At [facility] Method Time Signature Specimen [facility] N Gonorrhea Negative NEG [facility] Negative for N. gonorrhoeae rRNA by transcripti on mediated amplification. [facility] A negative result by transc ription mediated amplification does not preclude the [place] presence of N. gonorrhoeae infection because re sults are dependent on proper BANK and adequate collection, absence of inhibitors, and suffici ent rRNA to be detected. Specimen Anatomical Collection Method Collection Time Receive d Time (Source) Location / / Volume Laterality Vaginal swab 05/14/2014 3:24 PM 5 3:39 (specimen) BROKER ASSOCIATE PM BROKER ASSOCIATE Carlos Lee MD LAB - MICRO GENERAL ORDERABL ES Performing Organization Address City/State/ZIP Code Phon e Number [address] [address] [facility] [address] [place], [place] [address] Chlamydia trachomatis PCR (05/14/2014 3:24 PM BROKER ASSOCIATE) Component Value Ref Test Analysis Performed At [facility] urturn Range Method Time Signature Specimen Vagina [facility] Chlamydia Negative NEG [facility] Trachomatis Negative for C. trachomatis rRNA by continuous linter drier operator mediated amplification. [place] [facility] PCR A negative result by transc ription mediated amplification does not preclude the [facility] presence of C. trachomatis infection because re sults are dependent on proper BANK and adequate collection, absence of inhibitors, and suffici ent rRNA to be detected. Specimen Anatomical Collection Method Collection Time Receive d Time (Source) Location / / Volume Laterality Vaginal swab 05/14/2014 3:24 PM 5 3:39 (specimen) BROKER ASSOCIATE PM BROKER ASSOCIATE Carlos Lee MD LAB - MICRO GENERAL ORDERABL ES Performing Organization Address City/[facility]/ZIP Code Phon e Number [address] [address] [facility] [address] [place], [place] [address] 7 Wet prep (05/14/2014 3:24 PM BROKER ASSOCIATE) [facility] Method Time Signature Specimen [facility] Wet Prep Few PMNs seen [place] No Trichomonas seen [facility] No yeast seen [facility] No clue cells seen Micro Report FINAL [place] Status 05/14/2014 [facility] Specimen Anatomical Collection Method Collection Time Receive d Time (Source) Location / / Volume Laterality Vaginal swab 05/14/2014 3:24 PM 5 3:39 (specimen) BROKER ASSOCIATE PM BROKER ASSOCIATE Carlos Lee MD LAB - MICRO GENERAL ORDERABL ES Performing Organization Address City/State/ZIP Code Phon e Number [place] [address] [address] [address] [facility] [address] [address] 7 US Pelvic Complete w Transvaginal & Abd/Pel Duplex Limited (05/14/2014 3:03 PM BROKER ASSOCIATE) Anatomical Region Laterality Modality Abdomen/Pelvis Ultrasound Specimen (Source) Anatomical Location Collection Method / Collectio n Time Received Time / Laterality Volume Impressions 05/14/2014 3:48 PM BROKER ASSOCIATE IMPRESSION: No torsion demonstrated. Small cyst in the right ovary. ZINA MURRAY MD Narrative 05/14/2014 3:48 PM BROKER ASSOCIATE ULTRASOUND PELVIS ??WITH TRANSVAGINAL IMAGING ??05/14/2014 3:03 PM HISTORY: Pelvic pain. COMPARISON: None. FINDINGS: ??Transvaginal images were per formed to better evaluate the patient's uterus, ovaries and endometria l stripe. No fibroids are evident. The uterus is n ormal. Endometrial stripe measures 5 mm and is normal for patient' s age and menstrual status. The right ovary demonstrates a 3.[address] The left ovary demonstrates a small follicle. Doppler s pectral waveform analysis demonstrates blood flow to both ovaries. No adnexal masses are present. No free pelvic fluid is present . Procedure Note Zina Murray MD - 05/14/2014Fo rmatting of this note might be different from the original. ULTRASOUND PELVIS WITH TRANSVAGINAL IMAG ING 05/14/2014 3:03 PM HISTORY: Pelvic pain. COMPARISON: None. FINDINGS: Transvaginal images were perfo rmed to better evaluate the patient's uterus, ovaries and endometria l stripe. No fibroids are evident. The uterus is n ormal. Endometrial stripe measures 5 mm and is normal for patient' s age and menstrual status. The right ovary demonstrates a 3.[address] The left ovary demonstrates a small follicle. Doppler s pectral waveform analysis demonstrates blood flow to both ovaries. No adnexal masses are present. No free pelvic fluid is present . IMPRESSION IMPRESSION: No torsion demonstrated. Sma ll cyst in the right ovary. ZINA MURRAY MD Carlos Lee MD IMG US ORDERABLES (ABNORMAL) UA with Microscopic (05/14/2014 2:39 PM BROKER ASSOCIATE) [facility] Method Time Signature Color Urine Yellow [facility] Appearance Urine Clear [facility] Glucose Urine Negative NEG mg/dL [facility] Bilirubin Urine Negative NEG [facility] Ketones Urine Negative NEG mg/dL [facility] Specific [place] 1.016 1.003 - [place] Urine 1.035 [facility] Blood Urine Negative NEG [facility] pH Urine 6.0 5.0 - 7.0 [facility] Protein Albumin Negative NEG mg/dL [facility] Urobilinogen Normal 0.0 - 2.0 [place] mg/dL mg/dL [facility] Nitrite Urine Negative NEG [facility] Leukocyte Negative NEG [place] Esterase Urine [facility] Source Midstream [facility] WBC Urine <1 0 - 2 [facility] RBC Urine <1 0 - 2 [facility] Mucous Urine Present (A) NEG /LPF [facility] Specimen Anatomical Location Collection Method Collection Time Received Time (Source) / Laterality / Volume Urine specimen URINE SPECIMEN 05/14/2014 2:39 05/14/19 15 3:07 (specimen) COLLECTION, PM BROKER ASSOCIATE PM BROKER ASSOCIATE CATHETERIZED / Unknown Carlos Lee MD LAB - URINE ORDERABLES Performing Organization Address City/[facility]/ZIP [facility] e [facility] [address] [place], [place] [address] [place] [address] [address] [place], [place] [address] 7 Lactic acid (05/14/2014 2:00 PM BROKER ASSOCIATE) P athologist Signature Lactic Acid 1.0 0.4 - 2.0 [place] mmol/[facility] Specimen Anatomical Collection Method Collection Time Receive d Time (Source) Location / / Volume Laterality Blood specimen 05/14/2014 2:00 PM 015 2:25 (specimen) BROKER ASSOCIATE PM BROKER ASSOCIATE Carlos Lee MD LAB - BLOOD ORDERABLES Performing Organization Address City/[facility]/ZIP [facility] [address] [place], [place] [address] [address] [phone] [place] [address] [address] [place], [place] [address] 7 Lipase (05/14/2014 1:00 PM BROKER ASSOCIATE) P athologist Signature Lipase 154 73 - [address] [facility] U/[facility] Comment: Effective 11/10/2013, the reference range for this assay has changed to reflect new instrumentation/methodology. Specimen Anatomical Collection Method Collection Time Receive d Time (Source) Location / / Volume Laterality Blood specimen 05/14/2014 1:00 PM 015 2:24 (specimen) BROKER ASSOCIATE PM BROKER ASSOCIATE Carlos Lee MD LAB - BLOOD ORDERABLES Performing Organization Address City/State/ZIP Code Phon e Number M [facility] [address] [place], [place] [address] [facility] [address] [place], [place] [address] 7 (ABNORMAL) Comprehensive metabolic panel (05/14/2014 1:00 PM BROKER ASSOCIATE) athologist Signature Sodium 136 133 - 144 [place] mmol/L [facility] Potassium 3.9 3.4 - 5.3 [place] mmol/L [facility] Chloride 106 94 - 109 [place] mmol/[facility] Carbon Dioxide 23 20 - 32 [place] mmol/L [facility] Anion Gap 7 3 - 14 [place] mmol/L [facility] Glucose 85 70 - 99 [place] mg/dL [facility] Comment: Effective 11/10/2013, the reference range for this assay has changed to reflect new instrumentation/methodology. Urea Nitrogen 14 7 - 30 mg/dL [facility] Comment: Effective 11/10/2013, the reference range for this assay has changed to reflect new instrumentation/methodology. Creatinine 0.75 0.52 - 1.04 mg/dL [facility] GFR Estimate 90 >60 mL/min/1.7m2 [facility] Comment: Non GFR Calc GFR Estimate If Black >90 >60 mL/min/1.7m2 F [facility] GFR Calc HOSP ITAL Calcium 8.4 (L) 8.5 - 10.1 mg/dL [facility] Comment: Effective 11/10/2013, the reference range for this assay has changed to reflect new instrumentation/methodology. Bilirubin Total 0.3 0.2 - 1.3 mg/dL [facility] Albumin 3.5 3.4 - 5.0 g/dL [facility] Protein Total 7.4 6.8 - 8.8 g/dL [facility] Alkaline Phosphatase 68 40 - 150 U/L [facility] ALT 22 0 - 50 U/L [facility] AST 16 0 - 45 U/L [facility] Specimen Anatomical Collection Method Collection Time Receive d Time (Source) Location / / Volume Laterality Blood specimen 05/14/2014 1:00 PM 015 2:24 (specimen) BROKER ASSOCIATE PM BROKER ASSOCIATE Carlos Lee MD LAB - BLOOD ORDERABLES Performing Organization Address City/State/ZIP Code Phon e Number [place] [address] [address] [place], [place] [address] [facility] [address] [place], [place] [address] CBC with platelets differential (05/14/2014 1:00 PM BROKER ASSOCIATE) [facility] gist Method Time Signature WBC 8.3 4.0 - [place] 11.0 [facility] 10e9[facility] RBC Count 4.59 3.8 - 5.2 [place] 10e12/L [facility] Hemoglobin 13.4 11.7 - [place] 15.7 g/dL [facility] Hematocrit 40.2 35.0 - [place] 47.0 % [facility] MCV 88 78 - 100 [facility] MCH 29.2 26.5 - [place] 33.0 pg [facility] MCHC 33.3 31.5 - [place] 36.5 g/dL [facility] RDW 13.2 10.0 - [place] 15.0 % [facility] Platelet Count 248 150 - [address] Diff Method Automated [facility] % Neutrophils 74.9 % [facility] % Lymphocytes 19.9 % [facility] % Monocytes 3.6 % [facility] % Eosinophils 1.1 % [facility] % Basophils 0.1 % [facility] % Immature 0.4 % [place] Granulocytes [facility] Absolute 6.2 1.6 - 8.3 [place] Neutrophil 10e9/L [facility] Absolute 1.6 0.8 - 5.3 [place] Lymphocytes 10e9[facility] Absolute 0.3 0.0 - 1.3 [place] Monocytes [address] [place] [address] Absolute 0.1 0.0 - 0.7 [place] Eosinophils [address] [place] [address] Absolute 0.0 0.0 - 0.2 [place] Basophils [facility] Abs Immature 0.0 0 - 0.4 [place] Granulocytes [address] [place] [address] Specimen Anatomical Collection Method Collection Time Receive d Time (Source) Location / / Volume Laterality Blood specimen 05/14/2014 1:00 PM 015 2:24 (specimen) BROKER ASSOCIATE PM BROKER ASSOCIATE Carlos Lee MD LAB - BLOOD ORDERABLES Performing Organization Address City/State/ZIP Code Phon e Number [place] [address] [address] [facility] [address] [phone] documented in this encounter Visit Diagnoses Diagnosis Chronic abdominal pain Abdominal pain, unspecified site documented in this encounter Administered Medications Inactive Administered Medications - up to 3 most recent administrations Medication Order MAR Action Action Date Dose Rate Site diphenhydrAMINE (BENADRYL) Given 05/14/2014 2:06 PM BROKER ASSOCIATE 50 mg injection 50 mg 50 mg, Intravenous, ONCE, On 05/14/14 at 1352, For 1 dose ketorolac (TORADOL) injection 30 mg Given 05/14/2014 2:06 PM BROKER ASSOCIATE 30 mg 30 mg, Intravenous, ONCE, On 05/14/14 at 1352, For 1 dose promethazine (PHENERGAN) intraVENOUS Given 05/14/2014 2:06 PM CS T 12.5 mg injection 12.5 mg 12.5 mg, Intravenous, ONCE, On 05/14/14 at 1352, For 1 dose, Dilute 25 mg with 10 mL of normal saline in a syringe. Resulting concentration = 2.5 mg/ mL. Administer over 3-5 minutes. High risk of tissue necrosis with extravasation. documented in this encounter Active and Recently Administered Medications Times are shown in BROKER ASSOCIATE. Scheduled Medication Order 05/12/2014 05/13/2014 05/14/2014 diphenhydrAMINE (BENADRYL) injection 50 mg (COMPLETED) 1406 (Given - Provider: Meredith Garcia RN) 50 mg, Intravenous, ONCE, 05/14/14 at 1352, For 1 dose ketorolac (TORADOL) injection 30 mg (COMPLETED) 1406 (Given - Provider: Meredith Garcia RN) 30 mg, Intravenous, ONCE, 05/14/14 at 1352, For 1 dose promethazine (PHENERGAN) intraVENOUS injection 12.5 mg (COMPLETE D) 1406 (Given - Provider: Meredith Garcia RN) 12.5 mg, Intravenous, ONCE, 05/14/14 at 1352, For 1 dose, Dilute 25 mg with 10 mL of normal saline in a syringe. Resulting concentration = 2.5 mg/ mL. Administer over 3-5 minutes. High risk of tissue necrosis with extravasation. documented in this encounter Care Teams Real Estate Office Manager Relationship Specialty Start Date End Date Jamin Silva MD PCP - General Family Medicine - Sports 06/01/13 Medicine documented as of this encounter
--- OUTSIDE RECORDS SUMMARY | 2021-11-21 01:56 | XMS_ITS | Encounter Summary ---
:1980 Author Organization [facility] Address [facility] [place] [address] Care Team Providers Name Role Phone Ratna Mackey MD Primary Care Provider Reason for Visit Reason Comments Abdominal Pain Encounter Details Date Type Department Care Team Description 03/07/2015 Emergency [facility] Luis Villatoro Ch ronic pelvic pain [facility] in female [address] [facility] [place], [place] [address] [address] [phone] [address] [place] [address] (Wo rk) Social History Tobacco Use Types Packs/Day Years Used Date Current Some Day Smoker 0.25 Alcohol Use Standard Drinks/Week Comments No 0 (1 standard drink = 0.6 oz pure alcoho l) Sex Assigned at Date Recorded Not on file documented as of this encounter Last Filed Vital Signs Vital Sign Reading Time Taken Comments Blood Pressure 117/92 03/07/2015 3:54 PM EDUCATIONAL AID Pulse 75 03/07/2015 3:54 PM EDUCATIONAL AID Temperature 37.2 ??C (98.9 ??F) 03/07/2015 3:54 PM EDUCATIONAL AID Respiratory Rate 20 03/07/2015 3:54 PM EDUCATIONAL AID Oxygen Saturation 99% 03/07/2015 3:54 PM EDUCATIONAL AID Inhaled Oxygen Concentration - - Weight 77.6 kg (171 lb) 03/07/2015 3:54 PM EDUCATIONAL AID Height 167.6 cm (5' 6) 03/07/2015 3:54 PM EDUCATIONAL AID Body Mass Index 27.6 03/07/2015 3:54 PM EDUCATIONAL AID documented in this encounter Discharge Instructions Discharge InstructionsLuis Villatoro MD - 03/07/2015 4:15 PM CST Discharge Instructions Chronic Pain You were seen [...] if there is anything that worries you. ATIONAL AID documented in this encounter Medications at Time of Discharge Medication Sig Dispensed Refills Start Date End Date albuterol (PROAIR HFA, Inhale 2 puffs into 0 PROVENTIL HFA, VENTOLIN the lungs every 6 HFA) 108 (90 BASE) hours MCG/ACT inhaler ROPINIROLE HCL PO Take 2.5 mg by mouth 0 daily SERTRALINE HCL PO Take 100 mg by mouth 0 daily BuPROPion HCl 0 11/13/2015 (WELLBUTRIN PO) Omeprazole (PRILOSEC PO) Take 40 mg by mouth 0 11/13/2015 every morning documented as of this encounter ED Notes Luis Villatoro MD - 03/07/2015 3:58 PM CST History Chief Complaint: Abdominal Pain HPI: The history is provided by the patient. Lizette Serrato is a 35 year old female with a history of chronic pelvic pain who presents to the EDfor abdominal pain. The patient reports increased sharp LLQ abdominal/left-sided pelvic pain since an endometrial ablation in July 2014 for which she receives scheduled Percocet from her PCP, though she has not been able to get in to a pain clinic. On chart review, the patient has had numerous ED visits for intense episodes of the same chronic pain, and she was last seen here at [facility] one month ago at which time it was felt that her pain was consistent with her chronic pain and that she did not require further imaging studies. Ms. Serrato comes to the ED today complaining of sharp LLQ/left pelvic pain that is consistent with a flare of her chronic pain and that she wants us to get rid of her pain. The pain does not radiate, and there are no alleviating factors. Per the patient, there are no new symptoms such as fever, nausea, vomiting, diarrhea, constipation, or urinary symptoms. Allergies: NKDA Medications: Ropinerole Wellbutrin Omeprazole Albuterol inhaler Sertraline Past Medical History: Asthma Depression Restless leg syndrome Past Surgical History: Tubal ligation Social History: Marital Status: [2] Current some day smoker No alcohol use The patient is accompanied by her children Review of Systems Gastrointestinal: Positive for abdominal pain. Genitourinary: Positive for pelvic pain. All other systems reviewed and are negative. Physical Exam First Vitals: BP: (!) 117/92 mmHg Pulse: 75 Heart Rate: 75 Temp: 98.9 ??F (37.2 ??C) Resp: 20 Height: 167.6 cm (5' 6) Weight: 77.565 kg (171 lb) SpO2: 99 % Physical Exam Eye: Pupils are equal, round, and reactive. Extraocular movements intact. ENT: No rhinorrhea. Moist mucus membranes. Normal tongue and tonsil. Cardiac: Regular rate and rhythm. No murmurs, gallops, or rubs. Pulmonary: Clear to auscultation bilaterally. No wheezes, rales, or rhonchi. Abdomen: Focal tenderness deep in the left pelvis without rebound or guarding. Musculoskeletal: Normal movement of all extremities without evidence for deficit. Skin: Warm and dry without rashes. Neurologic: Non-focal exam without asymmetric weakness or numbness. GCS 15 Psychiatric: Normal affect with appropriate interaction with examiner. Emergency Department Course Laboratory: UA: Light yellow and clear, Leuk est small, WBC 1, RBC 1, Bacteria few, Squam ep 3, Mucous present HCG qual: negative Interventions: 1617 - Oxycodone-Acetaminophen 5-325 mg per tablet PO x 2 Emergency Department Course: Nursing notes and vitals reviewed. I reviewed the patient's chart in [facility]. 161 - I performed an exam of the patient as documented above. Plan of care discussed. The patient agrees with this plan. She will be discharged home to follow up with primary care doctor per dischargeinstructions. Indications for return to the ED were discussed and the patient understands. All questions were answered prior to discharge. I personally reviewed the laboratory results with the patient and answered all related questions prior to discharge. Impression & Plan Medical Decision Making: Lizette Serrato is an unfortunate 35 year old female with chronic pelvic pain due to endometriosis and cysts who returns today and requests that we take her pain away. She has her same chronic left lower quadrant abdominal pain for which she has undergone multiple CTs and ultrasounds. She notes the pain is exactly the same as usual, but she is out of her pain medication. She does not feel that there are any new symptoms such as diarrhea, dysuria, vaginal bleeding, or possibility of . Her urinalysis and urine test are normal. Her exam is benign except for focal left pelvic pain.She defers going through a pelvic exam or going through any further imaging. I do feel it is reasonable to simply treat her with her baseline 2 tablets of Percocet. I did explain that due to this chronic pain issue and the hospital's chronic pain policy that I would not be able to prescribe any further narcotics. She was advised to continue to work with her doctor on this issue with immediate return for us for fevers, change in her pain, or any other emergent concerns. Diagnosis: ICD-10-CM 1. Chronic pelvic pain in female N94.9 G89.29 I, Robbie Chowdhury, am serving as a scribe at 4:11 PM on 03/07/2015 to document services personally performed by Luis Villatoro MD, based on my observations and the provider's statements to me. [facility] Luis Villatoro MD 03/08/15 1257 ATIONAL AID Natalia Coon RN - 03/07/2015 3:52 PM CST Lower left abdominal pain that began about 1 year ago. Nauseated but no vomiting. Ibuprofen taken at9am. Patient alert and oriented x3. Airway, breathing and circulation intact. ATIONAL AID documented in this encounter Plan of Treatment Not on filedocumented as of this encounter Procedures Procedure Name Priority Date/Time Associated Comments Diagnosis HCG QUALITATIVE URINE STAT 03/07/2015 4:05 PM Chronic pelvi c pain Results for this EDUCATIONAL AID in female procedure are i n the results section. ROUTINE UA WITH STAT 03/07/2015 4:05 PM Chronic pelvic pain Results for this MICROSCOPIC EDUCATIONAL AID in female procedure are i n the results section. documented in this encounter Results HCG qualitative urine (03/07/2015 4:05 PM EDUCATIONAL AID) P athologist Signature HCG Qual Urine Negative NEG [facility] Specimen Anatomical Collection Method Collection Time Receive d Time (Source) Location / / Volume Laterality Urine specimen URINE SPECIMEN 03/07/2015 4:05 PM 03/07 4:14 (specimen) OBTAINED BY CLEAN EDUCATIONAL AID PM EDUCATIONAL AID CATCH PROCEDURE / Unknown Luis Villatoro MD LAB - URINE ORDERABLES Performing Organization Address City/State/ZIP Code Phon e Number [facility] [address], [place] [address] [facility] [address], [place] [address] [phone] (ABNORMAL) Routine UA with microscopic (03/07/2015 4:05 PM EDUCATIONAL AID) [facility] Method Time Signature Color Urine Light Yellow [facility] Appearance Urine Clear [facility] Glucose Urine Negative NEG mg/dL [facility] Bilirubin Urine Negative NEG [facility] Ketones Urine Negative NEG mg/dL [facility] Specific [place] 1.018 1.003 - [place] Urine 1.035 [facility] Blood Urine Negative NEG [facility] pH Urine 6.0 5.0 - 7.0 [place] pH [facility] Protein Albumin Negative NEG mg/dL [facility] Urobilinogen Normal 0.0 - 2.0 [place] mg/dL mg/dL [facility] Nitrite Urine Negative NEG [facility] Leukocyte Small (A) NEG [place] Esterase Urine [facility] Source [facility] WBC Urine 1 0 - 2 [place] /HPF [facility] RBC Urine 1 0 - 2 [place] /[facility] Bacteria Urine Few (A) NEG /HPF [facility] Squamous 3 (H) 0 - 1 [place] Epithelial /HPF /HPF [facility] Mucous Urine Present (A) NEG /LPF [facility] Specimen Anatomical Collection Method Collection Time Receive d Time (Source) Location / / Volume Laterality Urine specimen URINE SPECIMEN 03/07/2015 4:05 PM 03/07 4:14 (specimen) OBTAINED BY CLEAN EDUCATIONAL AID PM EDUCATIONAL AID CATCH PROCEDURE / Unknown Luis Villatoro MD LAB - URINE ORDERABLES Performing Organization Address City/State/ZIP Code Phon e Number M [facility] [address], [place] [address] [facility] [address], [place] [address] [phone] documented in this encounter Visit Diagnoses Diagnosis Chronic pelvic pain in female Unspecified symptom associated with fema le genital organs documented in this encounter Administered Medications Inactive Administered Medications - up to 3 most recent administrations Medication Order MAR Action Action Date Dose Rate Site oxyCODONE-acetaminophen Given 03/07/2015 4:17 PM EDUCATIONAL AID 2 tablets (PERCOCET) 5-325 MG per tablet 2 tablet 2 tablet, Oral, ONCE, On Fri03/07/15 at 1616, For 1 dose, Maximum acetaminophen dose from all sources= 75 mg/kg/day not to exceed 4 grams documented in this encounter Active and Recently Administered Medications Times are shown in EDUCATIONAL AID. Scheduled Medication Order 03/05/2015 03/06/2015 03/07/2015 oxyCODONE-acetaminophen (PERCOCET) 5-325 MG per tablet 2 tablet (COMPLETED) 1617 (Given - Provider: Fadi Ledezma RN) 2 tablet, Oral, ONCE, Fri03/07/15 at 16 16, For 1 dose, Maximum acetaminophen dose from all sources= 75 mg/kg/day not to exceed 4 grams documented in this encounter Care Teams Kinesiology Professor Relationship Specialty Start Date End Date Ratna Mackey MD PCP - General Family Practice 03/07/15 12/29/20 [facility] [address] [facility] [address] documented as of this encounter
--- OUTSIDE RECORDS SUMMARY | 2021-11-21 01:56 | XMS_ITS | Encounter Summary ---
:1980 Author Organization [facility] Address [facility] [place] [address] Care Team Providers Name Role Phone Jamin Silva MD Primary Care Provider Reason for Visit Reason Comments Abdominal Pain Encounter Details Date Type Department Care Team Description 06/07/2014 Emergency [facility] Quintin Benjamin Chronic pelvic pain in [facility] Emergency Dep ralph Nova MD female [address] EMERGENCY PHYSICIANS [facility] [phone] [address] [facility] [phone] [place], [place] [address] (Wo rk) Social History Tobacco Use Types Packs/Day Years Used Date Current Some Day Smoker 0.25 Alcohol Use Standard Drinks/Week Comments No 0 (1 standard drink = 0.6 oz pure alcoho l) Sex Assigned at Date Recorded Not on file documented as of this encounter Last Filed Vital Signs Vital Sign Reading Time Taken Comments Blood Pressure 134/81 06/07/2014 5:08 PM ACTING INSTRUCTOR Pulse 81 06/07/2014 5:08 PM ACTING INSTRUCTOR Temperature 36.9 ??C (98.5 ??F) 06/07/2014 2:54 PM ACTING INSTRUCTOR Respiratory Rate 16 06/07/2014 5:08 PM ACTING INSTRUCTOR Oxygen Saturation 99% 06/07/2014 5:08 PM ACTING INSTRUCTOR Inhaled Oxygen Concentration - - Weight - - Height - - Body Mass Index - - documented in this encounter Discharge Instructions Discharge InstructionsQuintin Castro MD - 06/07/2014 4:56 PM ACTING INSTRUCTOR Chronic Pain Resources *Many of the listed clinics will need a physician referral and medical records sent prior to making an appointment. Insuranceproviders often need to be called for acceptance. Clinic Location/Contact Information/Hours Information [facility] [address] [place], [place] [id number] Sub acute and chronic pain - interventional pain medicine available [facility] Twelfth Floor [address] [place] [address] M-TH: 7:30 am - 5:00 pm F: 7:30 am - 4:00 pm Sub acute and chronic pain - interventional pain medicine available [facility] Medical Pain Specialist Dr. Stephan Bojorquez [address], [address] [place], [place] [phone] M-F: 8:00 am - 5:30 pm Acute and chronic pain management including medication management. [facility] Dr. Valdo Fernandez [address] [place], [place] [id number] M-F: 7:00 am - 4:30 pm Inpatient residential chronic pain program and outpatient clinic, focus on rehabilitative pain management. [facility] [address] [place] [address], [address] [place] [address] M-F: 8:00 am - 4:00 pm Specializing in interventional pain management including epidural injections and medication management. [facility] [address] [place], [place] [id number] M-TH: 8:00 am - 9:00 pm F: 8:00 am - 4:30 pm Integrative medicine services including massage therapy, reflexology, mind/bodytherapy, guided imagery, acupuncture, exercises physiology, healing motor coach supervisor, and integrative nutrition. [facility] [address] [facility] [facility], [address] [place] [address] *Other [facility] Locations Available M-F: Depends on clinic Chronic, cancer and spinal pain syndromes - focus on interventions, rehabilitation, alternative medicine and behavioral health. Offers an outpatient four week chronic pain program, four hours daily, Friday through Friday. [facility] [address], [address] [place], [place] [address] M-F: 8:00 am - 5:00 pm Specializing in neck and back pain, headache management, TMJ/Orofacial pain, including psychological and alternative therapies New Outpatient Programs: Fibromyalgia, Chronic Daily Headache, Chronic Neck & Back Pain, ChronicNeck & Shoulder Pain in [facility] Discharge Instructions Chronic Pain You were seen [...] is anything that worries you. Discharge Instructions Chronic Pain You were seen [...] if there is anything that worries you. NG INSTRUCTOR documented in this encounter Medications at Time [...] daily BuPROPion HCl 0 11/13/2015 (WELLBUTRIN PO) diclofenac (VOLTAREN) Take 1 tablet (50 30 tablet 1 015 02/01/2015 50 MG EC tablet mg) by mouth 3 times daily as needed for moderate pain diphenhydrAMINE Take 1 capsule (25 30 capsule [...] documented as of this encounter ED Notes Quintin Castro MD - 06/07/2014 3:55 PM CST History Chief Complaint Abdominal Pain HPI Lizette Serrato is a 34 year old female who presents with left sided abdominal pain. The patient hashad this left sided abdominal pain since January 2014 which is being managed by her OB. She notes that her Ob plans for surgery, but presently she is on control until this is scheduled. The pain is present for about three weeks each month for which she takes ibuprofen. This current episode is stronger than her previous episodes; it is worse with walking. Otherwise, this pain is the same pain she has been dealing with. She denies any fevers, chills, vomiting, diarrhea, abnormal vaginal bleedingor discharge, urinary symptoms, back pain, or any other concerns. Allergies: The patient has no known drug allergies. Medications: Benadryl Phenergan Ropinirole Wellbutrin Prilosec Albuterol inhaler Sertraline Iron Past Medical History: Asthma Depressive disorder RLS Past Surgical History: Laparoscopic tubal ligation Family History: No past pertinent family history. Social History: Marital Status: The patient is a current everyday smoker (0.25 PPD). The patient is negative for alcohol use. OB: Dr. Guardado at [facility] Review of Systems Constitutional: Negative for fever and chills. Gastrointestinal: Positive for nausea and abdominal pain. Negative for vomiting, diarrhea, constipation and blood in stool. Genitourinary: Negative for dysuria, frequency, hematuria, vaginal bleeding and vaginal discharge. Musculoskeletal: Negative for back pain. All other systems reviewed and are negative. Physical Exam First Vitals: BP: 145/89 mmHg Heart Rate: 119 Temp: 98.5 ??F (36.9 ??C) Resp: 16 SpO2: 99 % Physical Exam Constitutional: She appears well-developed and well-nourished. Cardiovascular: Normal rate and regular rhythm. Pulmonary/Chest: Effort normal and breath sounds normal. Abdominal: There is no hepatosplenomegaly. There is tenderness in the right lower quadrant, suprapubic area and left lower quadrant. There is no rigidity, no rebound, no guarding and no CVA tenderness.No hernia. Nursing note and vitals reviewed. Emergency Department Course Laboratory: UA: negative HCG qualitative urine: negative Interventions: Advil 600 mg PO Percocet 1 tab PO Emergency Department Course: 1555: Nursing notes and vitals reviewed. I performed an exam of the patient as documented above. Urine sample was obtained and sent for laboratory analysis, findings above. I personally reviewed the laboratory results with the Patient and answered all related questions prior to discharge. 1700: Findings and plan explained to the Patient. Patient discharged home with instructions regarding supportive care, medications, and reasons to return. The importance of close follow-up was reviewed. The patient was prescribed Voltaren. Impression & Plan Medical Decision Making: Patient presents with lower abdominal pain. In review of her chart, patient has been seen here four times in the last four months for similar complaints. Patient had a CT scan and four ultrasounds thathave demonstrated simple ovarian cysts. Patient???s pain is improved after ibuprofen and percocet. On review of the [facility] literature, [place] been prescribed narcotics in the last year from over 10 different physicians. Patient is advised at this time I do not recommend further narcotics from the ER. She was offered nonsteroidal antiinflammatories and follow up in the clinic Diagnosis: (625.9) Chronic pelvic pain in female 2. Rule out endometriosis I, Yissel Rodgers, am serving as a scribe on 06/07/2014 at 3:55 PM to personally document services performed by Dr. Castro based on my observations and the provider's statements to me. Yissel Rodgers 06/07/2014 [facility] EMERGENCY DEPARTMENT Quintin Castro MD 06/13/14 0119 NG INSTRUCTOR Raegan Llamas, RN - 06/07/2014 2:54 PM CST Abdomen pain since January of 2014. Seen by her OB yesterday and told she has endometriosis. Pain isworse today. NG INSTRUCTOR documented in this encounter Plan of Treatment Not on filedocumented as of this encounter Procedures Procedure Name Priority Date/Time Associated Comments Diagnosis HCG QUALITATIVE URINE STAT 06/07/2014 3:29 PM Results for this ACTING INSTRUCTOR procedure are i n the results section. ROUTINE UA WITH STAT 06/07/2014 3:29 PM Result s for this MICROSCOPIC REFLEX TO ACTING INSTRUCTOR proced ure are in CULTURE the results section. documented in this encounter Results HCG qualitative urine (06/07/2014 3:29 PM ACTING INSTRUCTOR) P athologist Signature HCG Qual Urine Negative NEG [facility] Specimen Anatomical Collection Method Collection Time Receive d Time (Source) Location / / Volume Laterality Urine specimen URINE SPECIMEN 06/07/2014 3:29 PM 06/07 4:24 (specimen) OBTAINED BY CLEAN ACTING INSTRUCTOR PM ACTING INSTRUCTOR CATCH PROCEDURE / Unknown Quintin Castro MD LAB - URINE ORDERABLES Performing Organization Address City/State/ZIP Code Phon e Number M [facility] [address] [id number] [facility] [address] [place], [place] [address] UA with microscopic reflex to culture (06/07/2014 3:29 PM ACTING INSTRUCTOR) Patholo gist Method Time Signature Color Urine Straw [facility] Appearance Urine Clear [facility] Glucose Urine Negative NEG mg/dL [facility] Bilirubin Urine Negative NEG [facility] Ketones Urine Negative NEG mg/dL [facility] Specific [place] 1.007 1.003 - [place] Urine 1.035 [facility] Blood Urine Negative NEG [facility] pH Urine 5.0 5.0 - 7.0 [place] pH [facility] Protein Albumin Negative NEG mg/dL [facility] Urobilinogen Normal 0.0 - 2.0 [place] mg/dL mg/dL [facility] Nitrite Urine Negative NEG [facility] Leukocyte Negative NEG [place] Esterase Urine [facility] Source Midstream [place] Urine [facility] WBC Urine <1 0 - 2 [facility] RBC Urine <1 0 - 2 [facility] Squamous <1 0 - 1 [place] Epithelial /HPF /HPF [facility] Specimen Anatomical Collection Method Collection Time Receive d Time (Source) Location / / Volume Laterality Urine specimen URINE SPECIMEN 06/07/2014 3:29 PM 06/07 4:24 (specimen) OBTAINED BY CLEAN ACTING INSTRUCTOR PM ACTING INSTRUCTOR CATCH PROCEDURE / Unknown Quintin Castro MD LAB - URINE ORDERABLES Performing Organization Address City/State/ZIP Code Phon e Number M [place] [id number] [phone] [place] [phone] documented in this encounter Visit Diagnoses Diagnosis Chronic pelvic pain in female Unspecified symptom associated with fema le genital organs documented in this encounter Administered Medications Inactive Administered Medications - up to 3 most recent administrations Medication Order MAR Action Action Date Dose Rate Site ibuprofen (ADVIL,MOTRIN) tablet Given 06/07/2014 4:13 PM ACTING INSTRUCTOR 600 mg 600 mg 600 mg, Oral, ONCE, On Fri06/07/14 at 1611, For 1 dose oxyCODONE-acetaminophen (PERCOCET) 5-325 MG Given 05/16 4:13 PM ACTING INSTRUCTOR 1 tablet per tablet 1 tablet 1 tablet, Oral, ONCE, On Fri06/07/14 at 1611, For 1 dose, Maximum acetaminophen dose from all sources= 75 mg/kg/day not to exceed 4 grams documented in this encounter Active and Recently Administered Medications Times are shown in ACTING INSTRUCTOR. Scheduled Medication Order 06/05/2014 06/06/2014 06/07/2014 ibuprofen (ADVIL,MOTRIN) tablet 600 mg (COMPLETED) 1613 (Given - Provider: Brittney Cano RN) 600 mg, Oral, ONCE, 06/07/14 at 1611, For 1 dose oxyCODONE-acetaminophen (PERCOCET) 5-325 MG per tablet 1 tablet (COMPLETED) 1613 (Given - Provider: Brittney Cano RN) 1 tablet, Oral, ONCE, 06/07/14 at 161 1, For 1 dose, Maximum acetaminophen dose from all sources= 75 mg/kg/day not to exceed 4 grams documented in this encounter Care Teams Finance Analyst Relationship Specialty Start Date End Date Jamin Silva MD PCP - General Family Medicine - Sports 06/01/13 Medicine documented as of this encounter
--- OUTSIDE RECORDS SUMMARY | 2021-11-21 01:56 | XMS_ITS | Encounter Summary ---
:1980 Author Organization [facility] Address [address] [place] [address] Care Team Providers Name Role Phone [facility] Primary Care Provide r Encounter Details Date Type Department Care Team Description 12/30/2020 Travel Social History Tobacco Use Types Packs/Day Years [...] / COVID-19? documented as of this encounter Plan of Treatment Not on filedocumented as of this encounter Visit Diagnoses Not on filedocumented in this encounter Care Teams Aircraft Parts Assembler Relationship Specialty Start Date End Date [facility] PCP - General 12/30/201999 [place] [address] documented as of this encounter
--- OUTSIDE RECORDS SUMMARY | 2021-11-21 01:56 | XMS_ITS | Encounter Summary ---
:1980 Author Organization [place] Address [facility] [place] [address] Care Team Providers Name Role Phone Ratna Mackey MD Primary Care Provider Reason for Visit Reason Comments Dizziness Encounter Details Date Type Department Care Team Description [facility]22[facility]2015 [facility], [facility] Emergency MD [facility] Dept [facility] [address] [place], [place] [address] [id number] [place] [address] [place], [place] [address] (Wo rk) Social History Tobacco Use Types Packs/Day Years Used Date Current Some Day Smoker 0.25 Alcohol Use Standard Drinks/Week Comments No 0 (1 standard drink = 0.6 oz pure alcoho l) Sex Assigned at Date Recorded Not on file documented as of this encounter Last Filed Vital Signs Vital Sign Reading Time Taken Comments Blood Pressure 107/67 09/22/2015 2:30 PM CDT Pulse 110 09/22/2015 1:25 PM CDT Temperature 36.5 ??C (97.7 ??F) 09/22/2015 1:25 PM CDT Respiratory Rate 20 09/22/2015 1:25 PM CDT Oxygen Saturation 98% 09/22/2015 2:45 PM CDT Inhaled Oxygen Concentration - - Weight - - Height - - Body Mass Index - - documented in this encounter Discharge Instructions Discharge InstructionsShon Patel MD - 09/22/2015 2:43 PM CDT Images from the original note were not included. Understanding Hemorrhoids Hemorrhoid tissues are ???cushions?? of blood vessels that swell slightly during bowel movements. Too much pressure on the anal canal can make these tissues remain enlarged and cause symptoms. This can happen??both inside and outside the anal canal. Parts of the Anal Canal ?? Internal hemorrhoid tissue??is in the upper area of the anal canal. ?? The rectum??is the last several inches of the colon. This is where stool is stored prior to bowelmovements. ?? Anal sphincters??are ring-shaped muscles that expand and contract to control the anal opening. ?? External hemorrhoid tissue??lies under the anal skin. ?? The anus??is the passage between the rectum and the outside of the body. Normal Hemorrhoid Tissue Hemorrhoid tissues play an important role in helping your body eliminate waste. Food passes from thestomach through the intestines. The waste (stool) then travels through the colon to the rectum. It is stored in the rectum until it???s ready to be passed from the anus. During bowel movements, hemorrhoids swell with blood and become slightly larger. This swelling helps protect and cushion the anal canal as stool passes from the body. Once the stool has passed, the tissues stop swelling and return tonormal. Problem Hemorrhoids Pressure due to straining or other factors can cause hemorrhoid tissues to remain swollen. When thishappens to the hemorrhoid tissues in the anal canal they???re called internal hemorrhoids. Swollen tissues around the anal opening are called external hemorrhoids. Depending on the location, your symptoms can differ. ?? Internal hemorrhoids??often occur in clusters around the wall of the anal canal. They are usuallypainless. But they may prolapse (protrude out of the anus) due to straining or pressure from hard stool. After the bowel movement is over, they may then reduce (return inside the body). Internal hemorrhoids often bleed. They can also discharge mucus. ?? External hemorrhoids??are located at the anal opening, just beneath the skin. These tissues rarely cause problems unless they thrombose (form a blood clot). When this occurs, a hard, bluish lump mayappear. A thrombosed hemorrhoid also causes sudden, severe pain. In time, the clot may go away on its own. This sometimes leaves a ???skin tag?? of tissue stretched by the clot. Hemorrhoid Symptoms Hemorrhoid symptoms may include: ?? Pain or a burning sensation ?? Bleeding during bowel movements ?? Protrusion of tissue from the anus ?? Itching around the anus Causes of Hemorrhoids There???s no single cause of hemorrhoids. Most often, though, they are caused by too much pressure on the anal canal. This can be due to: ?? 4529-2272 [employer] [address] [place] [address], [place] [address]. All rights reserved. This information is not intended as a substitute for professional medical care. Always follow your healthcare professional's instructions. Treating Hemorrhoids: Self-Care Follow your doctor???s advice about caring for your hemorrhoids at home. Some treatments help relieve symptoms right away. Others involve making changes in your diet and exercise habits. These can helpease constipation and prevent hemorrhoid symptoms from coming back. Relieving Symptoms Your doctor may prescribe anti-inflammatory medication to help ease your symptoms. The following tips will also help relieve pain and swelling. ?? Take sitz baths.??Taking a sitz bath means sitting in a few inches of warm bath water. Soaking for 10 minutes twice a day can provide welcome relief from painful hemorrhoids. It can also help the area stay clean. ?? Develop good bowel habits.??Use the bathroom when you need to. Don???t ignore the urge to move your bowels. This can lead to constipation, hard stools, and straining. Also, don???t read while on thetoilet. Sit only as long as needed. Wipe gently with soft, unscented toilet tissue or baby wipes. ?? Use ice packs.??Placing an ice pack on a thrombosed external hemorrhoid can help relieve pain right away. It will also help reduce the blood clot. Use the ice for 15-20 minutes at a time. Keep a cloth between the ice and your skin to prevent skin damage. ?? Use other measures.??Laxatives and enemas can help ease constipation. But use them only on your doctor???s advice. For symptom relief, try using cotton pads soaked in witch peggy. These are available at most drugstores. Vghg-oon-cfoiirt hemorrhoid ointments and petroleum jelly can also provide relief. Add Fiber to Your Diet Adding fiber to your diet can help relieve constipation by making stools softer and easier to pass. To increase your fiber intake, your doctor may recommend a bulking agent, such as psyllium. This is ahigh-fiber supplement available at most grocery stores and drugstores. Eating more fiber-rich foods will also help. There are two types of fiber: ?? Insoluble fiber??is the main ingredient in bulking agents. It???s also found in foods such as wheat bran, whole-grain breads, fresh fruits, and vegetables. ?? Soluble fiber??is found in foods such as oat bran. Although soluble fiber is good for you, it maynot ease constipation as much as foods high in insoluble fiber. Drink More Water Along with a high-fiber diet, drinking more water can help ease constipation. This is because insoluble fiber absorbs water, making stools soft and bulky. Be sure to drink plenty of water throughout the day. Drinking fruit juices, such as prune juice or apple juice, can also help prevent constipation. Get More Exercise Regular exercise aids digestion and helps prevent constipation. It???s also great for your health. So talk with your doctor about starting an exercise program. Low-impact activities, such as swimming or walking, are good places to start. Take it easy at first. And remember to drink plenty of water when you exercise. ?? 1299-2382 [employer] [address] [place] [address]. All rights reserved. This information is not intended as a substitute for professional medical care. Always follow your healthcare professional's instructions. documented in this encounter Medications at Time of Discharge Medication Sig Dispensed Refills Start Date End Date albuterol (PROAIR HFA, Inhale 2 puffs into 0 PROVENTIL HFA, VENTOLIN the lungs every 6 HFA) 108 (90 BASE) MCG/ACT hours inhaler ROPINIROLE HCL PO Take 2.5 mg by 0 mouth daily SERTRALINE HCL PO Take 100 mg by 0 mouth daily BuPROPion HCl (WELLBUTRIN 0 11/13/2015 PO) hydrocortisone (ANUSOL-HC) Place rectally At 28.35 g 1 11/13/2015 2.5 % rectal cream Bedtime Omeprazole (PRILOSEC PO) Take 40 mg by mouth 0 11/13/2015 every morning documented as of this encounter ED Notes Shon Patel MD - 09/22/2015 1:32 PM CDT History Chief Complaint: Dizziness HPI Lizette Serrato is a 35 year old female who presents with dizziness. The patient reports that she has had some recent concern for internal hemorrhoids for which she has been following with her PCP. 4 days ago the patient reports having regular episodes of bloody stool, which she describes as ???I fillthe toilet with blood?? , 2-3 times per day. Today, the patient had continued bloody stool, and thisafternoon, also developed some dizziness and sharp left-sided lower back pain. Here in the ED, patient complains of continued symptoms, but denies any fever, nausea, vomiting, diarrhea, rectal bleeding, recent trauma, neck pain, numbness, weakness, abdominal pain, pain when passing stool, headaches, chest pain, reason for dehydration, withdrawal, recent medication changes, or other problems at this time. Allergies: The patient has no known drug allergies. Medications: Ropinirole Wellbutrin Prilosec Albuterol Sertraline Past Medical History: Uncomplicated asthma Depressive disorder RLS Past Surgical History: Laparoscopic tubal ligation Family History: No past pertinent family history. Social History: The patient is a current everyday smoker (0.25 PPD). The patient is negative for alcohol use. Marital Status: [2] Review of Systems Constitutional: Negative for fever, chills, activity change, appetite change and fatigue. Cardiovascular: Negative for chest pain. Gastrointestinal: Positive for blood in stool. Negative for nausea, vomiting, abdominal pain, diarrhea, anal bleeding and rectal pain. Musculoskeletal: Positive for back pain. Negative for neck pain. Skin: Negative for rash and wound. Neurological: Positive for dizziness. Negative for headaches. All other systems reviewed and are negative. Physical Exam First Vitals: BP: 109/74 mmHg Pulse: 110 Temp: 97.7 ??F (36.5 ??C) Resp: 20 SpO2: 99 % Physical Exam General: Patient is alert and interactive when I enter the room Head: The scalp, face, and head appear normal Eyes: The pupils are equal, round, and reactive to light Conjunctivae and sclerae are normal ENT: External acoustic canals are normal The oropharynx is normal without erythema. Uvula is in the midline Neck: Normal range of motion CV: Regular rate. S1/S2. No murmurs. Resp: Lungs are clear without wheezes or rales. No distress GI: Abdomen is soft, no rigidity, guarding, or rebound No distension. No tenderness to palpation in any quadrant. MS: Normal tone. Joints grossly normal without effusions. No asymmetric leg swelling, calf or thigh tenderness. Normal motor assessment of all extremities. Skin: No rash or lesions noted. Normal capillary refill noted Neuro: Speech is normal and fluent. Face is symmetric. Moving all extremities well. Psych: Awake. Alert. Normal affect. Appropriate interactions. Lymph: No anterior cervical lymphadenopathy noted Rectal: No masses. Internal hemorrhoid at 3 and 6 o???clock with stigmata of active bleeding. Emergency Department Course Laboratory: CBC: WNL(WBC 7.3, HGB 15.1, PLT 254) BMP: Glucose 115 H, o/w WNL(Creatinine 0.92) Procedures: PROCEDURE NOTE: Anoscopy Physician: Shon Patel MD Indications: Bleeding from rectum, evaluate for hemorrhoids, fissures, proctitis Consent: Verbal Description of Procedure: The patient was placed in the lateral decubitus position. A digital rectalexam with 2% viscous lidocaine was normal without masses. The anoscope was introduced and the introducer removed. The scope was slowly withdrawn. The findings included no masses. Internal hemorrhoid at3 and 6 o???clock with stigmata of active bleeding. The procedure was terminated. The patient tolerated the procedure well, there were no complications. Interventions: Toradol IV 30 mg Zofran IV 4 mg Normal Saline IV bolus, total of 1.0 L IV Emergency Department Course: Nursing notes and vitals reviewed. I performed an exam of the patient as documented above. Blood was drawn from the patient. This was sent for laboratory testing, findings above. I personally reviewed the laboratory results with the Patient and answered all related questions prior to discharge. Impression & Plan Medical Decision Making: Lizette Serrato is a 35 year old female who presents for evaluation of lightheadedness and concern for possible hemorrhoids. With regards to the hemorrhoids, I preformed an anoscopy. The findings included no masses. Internal hemorrhoid at 3 and 6 o???clock with stigmata of active bleeding. The patient will be started on hydrocortisone cream for this for use at bedtime. With regard to the patients light headedness, this is clearly not a vertiginous sensation so would not do further workup for peripheral or central vertigo. A broad differential of their lightheadedness was considered including anemia, electrolyte abnormality, medication, stroke, ACS, Orthostasis, dissection, dehydration, presyncope,arrhythmias, metabolic disturbances, endocrine disturbances, hyperglycemia, infection, etc. No serious etiologies of lightheadedness were found in workup here today. They feel improved after fluids. Supportive outpatient management is indicated. Diagnosis: ICD-10-CM 1. Internal hemorrhoid, bleeding K64.8 2. Lightheadedness R42 Disposition: Discharged to home Discharge Medications: New Prescriptions HYDROCORTISONE (ANUSOL-HC) 2.5 % RECTAL CREAM Place rectally At Bedtime Andres Miller 09/22/2015 [facility] EMERG[facility]Y [facility]PART[facility] I, Andres Miller, am serving as a scribe at 1:32 PM on 09/22/2015 to document services personally performed by Shon Patel MD based on my observations and the provider's statements sugar. Shon Patel MD 09/22/15 1521 Dorie Paulson RN - 09/22/2015 1:27 PM CDT Patient presents with complaints of dizziness and rectal bleeding. She reports being seen by her PMDand was told the bleeding was due to hemmorhoids, but today is dizzy and weak. She is alert and oriented, ABCs intact. documented in this encounter Plan of Treatment Not on filedocumented as of this encounter Procedures Procedure Name Priority Date/Time Associated Comments Diagnosis CBC WITH PLATELETS & STAT 09/22/2015 1:40 PM R esults for this DIFFERENTIAL CDT procedure are i n the results section. BASIC METABOLIC PANEL STAT 09/22/2015 1:40 PM Results for this CDT procedure are i n the results section. documented in this encounter Results (ABNORMAL) Basic metabolic panel (09/22/2015 1:40 PM CDT) P athologist Signature Sodium 140 133 - 144 [place] mmol/L [facility] Potassium 3.8 3.4 - 5.3 [place] mmol/L [facility] Chloride 108 94 - 109 [place] mmol/L [facility] Carbon Dioxide 25 20 - 32 [place] mmol/L [facility] Anion Gap 7 3 - 14 [place] mmol/L [facility] Glucose 115 (H) 70 - 99 [place] mg/dL [facility] Urea Nitrogen 10 7 - 30 [place] mg/dL [facility] Creatinine 0.92 0.52 - [place] 1.04 mg/dL [facility] GFR Estimate 70 >60 [place] mL/min/1.[address] Comment: Non GFR Calc GFR Estimate If Black 84 >60 mL/min/1.7m2 F [facility] Comment: GFR Calc Calcium 9.1 8.5 - 10.1 mg/dL [facility] Specimen Anatomical Collection Method Collection Time Receive d Time (Source) Location / / Volume Laterality Blood specimen 09/22/2015 1:40 PM 016 1:43 (specimen) CDT PM CDT Shon Patel MD LAB - BLOOD ORDERABLES Performing Organization Address City/State/ZIP Code Phon e Number M [facility] [address] [address] [facility] [address] [phone] CBC with platelets differential (09/22/2015 1:40 PM CDT) Patholo gist Method Time Signature WBC 7.3 4.0 - [facility] 11.0 [facility] 10e9/L [facility] RBC Count 4.99 3.8 - 5.2 [place] 10e12/L [facility] Hemoglobin 15.1 11.7 - [place] 15.7 g/dL [facility] Hematocrit 42.7 35.0 - [place] 47.0 % [facility] MCV 86 78 - 100 [facility] MCH 30.3 26.5 - [facility] 33.0 pg [facility] MCHC 35.4 31.5 - [place] 36.5 g/dL [facility] RDW 12.7 10.0 - [place] 15.0 % [facility] Platelet Count 254 150 - [address] Diff Method Automated [place] Method [facility] % Neutrophils 71.6 % [facility] % Lymphocytes 19.4 % [facility] % Monocytes 7.3 % [facility] % Eosinophils 1.0 % [facility] % Basophils 0.4 % [facility] % Immature 0.3 % [place] Granulocytes [facility] Nucleated RBCs 0 0 /100 [facility] Absolute 5.2 1.6 - 8.[address] [place] Neutrophil [address] [place] [address] Absolute 1.4 0.8 - 5.3 [place] Lymphocytes [address] [place] [address] Absolute 0.5 0.0 - 1.3 [place] Monocytes [address] [place] [address] Absolute 0.1 0.0 - 0.7 [place] Eosinophils [address] [place] [address] Absolute 0.0 0.0 - 0.2 [place] Basophils [address] [place] [address] Abs Immature 0.0 0 - 0.4 [place] Granulocytes [address] [place] [address] Absolute 0.0 [place] Nucleated RBC [facility] Specimen Anatomical Collection Method Collection Time Receive d Time (Source) Location / / Volume Laterality Blood specimen 09/22/2015 1:40 PM 016 1:43 (specimen) CDT PM CDT Shon Patel MD LAB - BLOOD ORDERABLES Performing Organization Address City/State/ZIP Code Phon e Number M [facility] [address] [place], [place] [address] [facility] [address] [place] [address] [phone] documented in this encounter Visit Diagnoses Diagnosis Internal hemorrhoid, bleeding Internal hemorrhoids with other complica tion Lightheadedness Dizziness and giddiness documented in this encounter Administered Medications Inactive Administered Medications - up to 3 most recent administrations Medication Order MAR Action Action Date Dose Rate Site 0.9% sodium chloride BOLUS New Bag 09/22/2015 1:45 PM CDT 1,000 mLs 1000 mL/hr Intravenous, 1,000 mL, ONCE, at 1,000 mL/hr, Administer over 1 Hours, On Fri09/22/15 at 1332, For 1 dose ketorolac (TORADOL) injection 30 mg Given 09/22/2015 1:55 PM CDT 30 mg 30 mg, Intravenous, ONCE, On Fri09/22/15 at 1350, For 1 dose ondansetron (ZOFRAN) 2 MG/ML injection Given 09/22/2015 1:45 PM CDT 4 mg Starting on Fri09/22/15 at 1346, For 1 dose, LINDSAY MCINTOSH: cabinet override documented in this encounter Active and Recently Administered Medications Times are shown in CDT. Scheduled Medication Order 09/20/2015 09/21/2015 09/22/2015 0.9% sodium chloride BOLUS (COMPLETED) 1345 (New Bag - Provider: Lindsay Mcintosh RN)1445 (Stopped - Provider: Lindsay Mcintosh RN) Intravenous, 1,000 mL, ONCE, at 1,000 mL /hr, Administer over 1 Hours, On Fri09/22/15 at 1332, For 1 dose ketorolac (TORADOL) injection 30 mg (COMPLETED) 1355 (Given - Provider: Lindsay Mcintosh RN) 30 mg, Intravenous, ONCE, Fri09/22/15 at 1350, For 1 dose No Frequency Medication Order 09/20/2015 09/21/2015 09/22/2015 ondansetron (ZOFRAN) 2 MG/ML injection (COMPLETED) 1345 (Given - Provider: Lindsay Mcintosh, ANGE) Starting Fri09/22/15 at 1346, For 1 dose, LINDSAY MCINTOSH: cab inet override documented in this encounter Care Teams [place] [employer] Relationship Specialty Start Date End Date Ratna Mackey MD PCP - General Family Practice 03/07/15 12/29/20 [facility] [id number] [place] [address] [phone] documented as of this encounter
--- OUTSIDE RECORDS SUMMARY | 2021-11-21 01:56 | XMS_ITS | Encounter Summary ---
:1980 Author Organization [place] Address [address] [place] [id number] Care Team Providers Name Role Phone 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
--- OUTSIDE RECORDS SUMMARY | 2021-11-21 01:56 | XMS_ITS | Encounter Summary ---
:1980 Author Organization [facility] Address [facility] [place] [address] Care Team Providers Name Role Phone Ratna Mackey MD Primary Care Provider Reason for Visit Reason Comments Other patient complaining of breas t pain Encounter Details Date Type Department Care Team Description 01/15/2016 Emergency [facility] Shahram Medrano, Cellulitis of right [place] [facility] t DO breast [address] [facility] [id number] [address] [phone] [place], [place] [address] (Wo rk) Social History Tobacco Use Types Packs/Day Years Used Date Current Some Day Smoker 0.25 Alcohol Use Standard Drinks/Week Comments Yes 0 (1 standard drink = 0.6 oz pure alcoho l) Sex Assigned at Date Recorded Not on file documented as of this encounter Last Filed Vital Signs Vital Sign Reading Time Taken Comments Blood Pressure 115/74 01/15/2016 11:25 PM CDT Pulse 115 01/15/2016 8:49 PM CDT Temperature 37 ??C (98.6 ??F) 01/15/2016 8:49 PM CDT Respiratory Rate 18 01/15/2016 8:49 PM CDT Oxygen Saturation 97% 01/15/2016 11:26 PM CDT Inhaled Oxygen Concentration - - Weight 78.9 kg (173 lb 15.1 oz) 01/15/2016 8:49 PM CDT Height 167.6 cm (5' 6) 01/15/2016 8:49 PM CDT Body Mass Index 28.08 01/15/2016 8:49 PM CDT documented in this encounter Discharge Instructions Discharge InstructionsShahram Renteria, DO - 01/15/2016 11:35 PM CDT Images from the original note were not included. Discharge Instructions for Cellulitis You have been diagnosed with cellulitis. This is an infection in the deepest layer of the skin. In some cases, the infection also affects the muscle. Cellulitis is caused by bacteria. The bacteria can??enter the body through broken skin. This can happen with a cut, scratch, animal bite, or an insect bite that has been scratched. You may have been treated in the hospital with antibiotics and fluids. You will likely be given a prescription for antibiotics to take at home. This sheet will help you takecare of yourself at home. Home Care When you are home: ?? Take the prescribed antibiotic medication you are given as directed until it is gone. Take it even if you feel better. It treats the infection and stops it from returning. Not taking all of the medication can make future infections hard to treat. ?? Keep the infected area clean. ?? When possible, raise the infected area above the level of your heart. This helps keep swelling down. ?? Talk to your doctor if you are in pain. Ask what kind of syvg-qen-hthrwqa medication you can takefor pain. ?? Apply clean bandages as advised. ?? Take your temperature once a day for a week. ?? Wash your hands often to prevent spreading the infection. In the future, wash your hands before and after you touch cuts, scratches, or bandages. This will help prevent infection.?? When to Call Your Doctor Call your doctor immediately if you have any of the following: ?? Vomiting ?? Fever??of100.4??F (38??C) or higher, or as directed by your health care provider ?? Shaking chills ?? Redness that gets worse in or around the infected area ?? Swelling of the infected area ?? Pain that gets worse in or around the infected area ?? Difficulty or pain when moving the joints above or below the infected area ?? Discharge or pus draining from the area ?? 1311-0510 [employer]. [address] [place] [address], [place] [address]. All rights reserved. This information is not intended as a substitute for professional medical care. Always follow your healthcare professional's instructions. documented in this encounter Medications at Time of Discharge Medication Sig Dispensed Refills Start Date End Date albuterol (PROAIR HFA, Inhale 2 puffs into 0 PROVENTIL HFA, VENTOLIN the lungs every 6 HFA) 108 (90 BASE) hours MCG/ACT inhaler NORTRIPTYLINE HCL PO 0 ROPINIROLE HCL PO Take 2.5 mg by 0 mouth daily SERTRALINE HCL PO Take 100 mg by 0 mouth daily cephALEXin (KEFLEX) 500 Take 1 capsule (500 40 capsule 0 06/201501/25/2016 MG capsule mg) by mouth 4 times daily for 10 days documented as of this encounter ED Notes Shahram Renteria DO - 01/15/2016 10:10 PM CDT History Chief Complaint: Other HPI Lizette Serrato is a 36 year old female who presents with right breast pain. She states that 1 week ago she got both of her nipples pierced (same place, same person, same day). She has been fine until today when she noticed increasing redness and pain in her right breast. She does not report fevers. Allergies: No Known Allergies Medications: Nortriptyline Ropinirole Albuterol Sertraline Past Medical History: Past Medical History Diagnosis Date ??? Uncomplicated asthma ??? Depressive disorder ??? Restless leg syndrome Past Surgical History: Past Surgical History Procedure Laterality Date ??? Laparoscopic tubal ligation Family History: Negative Social History: Marital Status: [2] Social History Substance Use Topics ??? Smoking status: Current Some Day Smoker -- 0.25 packs/day ??? Smokeless tobacco: Not on file ??? Alcohol Use: Yes Review of Systems Constitutional: Negative for fever. Skin: Positive for color change. Right Breast tenderness and erythema All other systems reviewed and are negative. Physical Exam First Vitals: BP: 134/88 mmHg Pulse: 115 Temp: 98.6 ??F (37 ??C) Resp: 18 Height: 167.6 cm (5' 6) Weight: 78.9 kg (173 lb 15.1 oz) SpO2: 97 % Physical Exam Constitutional: Patient is oriented to person, place, and time. Patient appears well-developed and well-nourished. There is mild distress. Eyes: Pupils are equal, round, and reactive to light. Cardiovascular: Normal rate on exam, regular rhythm and normal heart sounds. Exam reveals no gallop and no friction rub. No murmur heard. Pulmonary/Chest: Effort normal and breath sounds normal. No respiratory distress. Patient has no wheezes. Patient has no rales. Breast Exam (Chap[place]ed): There is some erythema on the inferior and medial areas of the breast. There is no nipple retraction or discharge. I do not palpate any masses. There is tenderness on exam over the erythematous portions of her breast. Abdominal: Soft. There is no tenderness. Neurological: Patient is alert and oriented to person, place, and time. Skin: Skin is warm and dry. There is no diaphoresis noted. Erythema as noted above. Emergency Department Course Imaging: Radiographic findings were communicated with the patient who voiced understanding of the findings. US Right Breast No fluid collection to suggest abscess Preliminary radiology read Interventions: Ibuprofen Emergency Department Course: The patient remained well in the ED and was stable for discharge. Impression & Plan Medical Decision Makin36 y/o female had her nipples pierced last week. Her right breast is painful and erythematous. Please see HPI and PE for specifics. Her Breast US did not show any fluid collection c/w abscess. At this time I believe she is stable for discharge with PO medications. Anticipatory guidance given prior to discharge. Diagnosis: ICD-10-CM 1. Cellulitis of right breast N61.0 Disposition: discharged to home Discharge Medications: Discharge Medication List as of 01/15/2016 11:40 PM START taking these medications Details cephALEXin (KEFLEX) 500 MG capsule Take 1 capsule (500 mg) by mouth 4 times daily for 10 days, Disp-40 capsule, R-0, Local Print Shahram Renteria D.O. 01/15/2016 [facility] EM[facility] Shahram Renteria DO 01/16/16 0037 Lemuel Hogan RN - 01/15/2016 8:58 PM CDT Pt got right nipple pierced last Friday and today had onset of red and soreness. Pt A&O x 3, CMS x 3, ABCD's adequate in triage documented in this encounter Plan of Treatment Not on filedocumented as of this encounter Procedures Procedure Name Priority Date/Time Associated Diagnosis Comme nts US BREAST RIGHT STAT 01/15/2016 10:48 PM Resul ts for this LIMITED 1-3 CDT procedure are i n QUADRANTS the results section. 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 HISTORY: breast erythema FINDINGS: Negative ultrasound of the are a of concern. Clinical followup recommended. Shahram Renteria DO IMKaleb US ORDERABLES documented in this encounter Visit Diagnoses Diagnosis Cellulitis of right breast documented in this encounter Administered Medications Inactive Administered Medications - up to 3 most recent administrations Medication Order MAR Action Action Date Dose Rate Site cephALEXin (KEFLEX) capsule 500 Given 01/15/2016 11:44 PM CDT 50 0 mg mg STAT, 500 mg, Oral, ONCE, On Fri01/15/16 at 2335, For 1 dose, Indications: Skin and Soft Tissue Infection ibuprofen (ADVIL,MOTRIN) tablet 600 mg Given 01/15/2016 10:18 PM CDT 600 mg 600 mg, Oral, ONCE, On Fri01/15/16 at 2216, For 1 dose documented in this encounter Active and Recently Administered Medications Times are shown in CDT. Scheduled Medication Order 01/13/2016 01/14/2016 01/15/2016 cephALEXin (KEFLEX) capsule 500 mg (COMPLETED) 2344 (Given - Provider: Lorelei Gold RN) 500 mg, Oral, ONCE, Fri01/15/16 at 2335, For 1 dose, Indications: Skin and Soft Tissue Infection ibuprofen (ADVIL,MOTRIN) tablet 600 mg (COMPLETED) 2218 (Given - Provider: Lorelei Gold RN) 600 mg, Oral, ONCE, 01/15/16 at 2216, For 1 dose documented in this encounter Care Teams Glass Or Mirror Inspector Relationship Specialty Start Date End Date Ratna Mackey MD PCP - General Family Practice 03/07/15 12/29/20 [facility] [address] [place] [address] documented as of this encounter
--- OUTSIDE RECORDS SUMMARY | 2021-11-21 01:56 | XMS_ITS | Clinical Summary ---
:1980 Author Organization [facility] Address [address] [place] [id number] Care Team Providers Name Role Phone Clinic, [facility] Primary Care Provide r Allergies Active Allergy Reactions Severity Noted Date Comments Hydrocodone-Acetaminophen Itching 12/30/2020 Medications Medication Sig Dispensed Refills Start Date End Date Status SERTRALINE HCL PO Take 100 mg by 0 Active mouth daily ROPINIROLE HCL PO Take 2.5 mg by 0 Active mouth daily albuterol (PROAIR HFA, Inhale 2 puffs 0 Active PROVENTIL HFA, VENTOLIN into the lungs HFA) 108 (90 BASE) every 6 hours MCG/ACT inhaler NORTRIPTYLINE HCL PO 0 Active Active Problems No known active problems Social History Tobacco Use Types Packs/Day Years Used Date Current Some Day Smoker 0.25 Alcohol Use Standard Drinks/Week Comments Yes 0 (1 standard drink = 0.6 oz pure alcoho l) Sex Assigned at Date Recorded Not on file Last Filed Vital Signs Vital Sign Reading [...] Mass Index 28.08 01/15/2016 8:49 PM CDT Plan of Treatment Health Maintenance Due Date Last Done Comments ADVANCE CARE PLANNING 1980 ANNUAL REVIEW OF HM ORDERS 1982 PREVENTIVE CARE VISIT 1980 Pneumococcal Vaccine: 01/13/1988 Pediatrics (0 to 5 Years) and At-Risk Patients (6 to 64 Years) (1 - PCV) HIV SCREENING 1997 HEPATITIS C SCREENING 01/13/2000 PAP 2003 COVID-19 Vaccine (3 - 01/29/2021 08/29/2020, 08/01/2020 Booster for Moderna series) PHQ-2 (once per calendar 04/14/2021 year) INFLUENZA VACCINE (#1) 2021 06/14/2019, 12/06/2014, 01/18/2014, Additional history exists DTAP/TDAP/TD IMMUNIZATION 06/13/2029 06/14/2019, 12/09/2008 (3 - Td or Tdap) HEPATITIS B IMMUNIZATION Aged Out No long er eligible based on patient 's age to complete this topic IPV IMMUNIZATION Aged Out No longer eligi ble based on patient 's age to complete this topic MENINGITIS IMMUNIZATION Aged Out No longe r eligible based on patient 's age to complete this topic Insurance Payer Benefit Plan / Subscriber ID Effective Dates Phone Addre ss Type Group BCBS BCBS OUT OF [id number] 2019-Present [phone] [address] [address] [place] [address] [phone] Constitutional ly 6 (Home) none (Work) Dante WILSON [id number] Care Teams 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
--- OUTSIDE RECORDS SUMMARY | 2021-11-21 01:57 | XMS_ITS | Encounter Summary ---
:1980 Author Organization [facility] Address [address] [place] [id number] Care Team Providers Name Role Phone Jamin Silva MD Primary Care Provider Reason for Visit Reason Comments Flank Pain Encounter Details Date Type Department Care Team Description [facility], [facility] t lower quadrant [address] [facility] (Primary Dx) [facility] [id number] [facility] [phone] [place], [place] [address] (Wo rk) Social History Tobacco Use Types Packs/Day Years Used Date Current Every Day Smoker 0.25 Alcohol Use Standard Drinks/Week Comments No 0 (1 standard drink = 0.6 oz pure alcoho l) Sex Assigned at Date Recorded Not on file documented as of this encounter Last Filed Vital Signs Vital Sign Reading Time Taken Comments Blood Pressure 115/78 02/08/2014 12:27 PM CDT Pulse 74 02/08/2014 3:00 PM CDT Temperature 36.7 ??C (98.1 ??F) 02/08/2014 3:00 PM CDT Respiratory Rate 16 02/08/2014 3:00 PM CDT Oxygen Saturation 98% 02/08/2014 3:00 PM CDT Inhaled Oxygen Concentration - - Weight - - Height - - Body Mass Index - - documented in this encounter Discharge Instructions Discharge InstructionsMili Tate MD - 02/08/2014 2:54 PM CDT Discharge Instructions Abdominal Pain Abdominal pain can [...] Signs of dehydration can be: o Your has had no wet diapers in 4-5 [...] directed by your doctor today. Before using wunn-fzd-oclztps medications, ask your doctor and make sure [...] contain Tylenol?? (acetaminophen), including Vicodin??, Tylenol #3??, [place]kees[place]??, Lortab??, and Percocet??. You should not take [...] daily BuPROPion HCl (WELLBUTRIN 0 11/13/2015 PO) Ferrous Sulfate (IRON 0 SUPPLEMENT PO) HYDROcodone-acetaminophen Take 1-2 tablets by 15 tablet 0 1 02/18/2014 (NORCO) 5-325 MG per mouth every 4 hours tablet as needed for moderate to severe pain Omeprazole (PRILOSEC PO) Take 40 mg by mouth 0 11/13/2015 every morning ondansetron (ZOFRAN ODT) 4 Take 1 tablet (4 10 tablet 0 03/30/2014 MG disintegrating tablet mg) by mouth every 8 hours as needed for nausea documented as of this encounter Progress Notes Kimberly Le RN - 02/08/2014 3:01 PM CDT NSG DISCHARGE NOTE Patient discharged to home at 3:01 PM via ambulation. Accompanied by spouse and staff. Discharge instructions reviewed with patient, opportunity offered to ask questions. Prescriptions sent with patient to fill . All belongings sent with patient. Kimberly Le documented in this encounter ED Notes Mili Tate MD - 02/08/2014 10:39 AM CDT History Chief Complaint: Flank Pain HPI Lizette Serrato is a 34 year old female who presents with left-sided flank pain. The patient reportsthat 4-5 days ago she began to develop left-sided flank pain. She states that she initially thought it was a UTI because she had associated urinary frequency and dysuria. Since onset, her symptoms haveprogressively worsened. Currently the patient reports that she also has left lower abdominal pain. Currently the patient rates her pain as 9/10 in severity, worse with movement. The patient states thathelena went to her clinic 4 days ago and underwent a UA which was negative, but a culture was sent and is pending. The patient states that she has had a tubal ligation in the past. She denies any recent tr auma or injury to her abdomen. Her last period was 1-2 weeks ago and denies any abnormalities or chance of . Otherwise the patient denies any fever, chills, nausea, vomiting, shortness of breath, cough, congestion or any other physical complaints at this time. Allergies: No Known Allergies Medications: Ropinirole hcl po Bupropion hcl (wellbutrin po) Omeprazole (prilosec po) Albuterol (proair hfa, proventil hfa, ventolin hfa) 108 (90 base) mcg/act inhaler Sertraline hcl po Ferrous sulfate (iron supplement po) Past Medical History: Asthma Depressive disorder RLS Past Surgical History: Laparoscopic tubal ligation Family History: Family history reviewed. No relevant family history. 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 Review of Systems Constitutional: Negative for fever and chills. HENT: Negative for congestion. Respiratory: Negative for cough and shortness of breath. Gastrointestinal: Positive for abdominal pain (left lower region). Negative for nausea and vomiting. Genitourinary: Positive for dysuria, frequency and flank pain (left side). Negative for menstrual problem. All other systems reviewed and are negative. Physical Exam First Vitals: BP: 131/81 mmHg Pulse: 82 Temp: 97.3 ??F (36.3 ??C) Resp: 18 SpO2: 98 % Physical Exam Constitutional: She is cooperative. HENT: Right Ear: Tympanic membrane normal. Left Ear: Tympanic membrane normal. Mouth/Throat: Oropharynx is clear and moist and mucous membranes are normal. Eyes: Conjunctivae are normal. Neck: Normal range of motion. Cardiovascular: Regular rhythm and normal heart sounds. Pulmonary/Chest: Effort normal and breath sounds normal. Abdominal: Soft. Normal appearance and bowel sounds are normal. There is tenderness in the left lower quadrant. There is no rebound and no guarding. Musculoskeletal: Normal range of motion. Lymphadenopathy: She has no cervical adenopathy. Neurological: She is alert. Skin: Skin is warm and dry. Psychiatric: She has a normal mood and affect. Emergency Department Course Imaging: Radiographic findings were communicated with the patient who voiced understanding of the findings. CT abdomen and pelvis w/o contrast: 1. No evidence for renal, ureteral, or bladder calculi. 2. Small cyst or follicle in the left ovary. Preliminary report per radiology. US Pelvis w/ Transvaginal: No torsion demonstrated. Preliminary report per radiology. Laboratory: HCG qualitative urine: Negative BMP: Cr 0.84 (WNL) otherwise WNL CBC: WBC 5.7 (WNL) HGB 13.0 (WNL) PLT 214 (WNL) otherwise WNL UA: Clear, Light Yellow, few bacteria (A), otherwise WNL Interventions: Dilaudid, 0.5 mg, IV X4 Zofran, 4 mg, IV NS, 1 L: 1 L/hr, IV drip Emergency Department Course: 10:39 Nursing notes and vitals reviewed. I obtained a history from the patient. I performed an exam of the patient as documented above. We discussed the plan of care including imaging and laboratory studies. IV inserted and blood drawn. The patient was placed on continuous blood pressure monitoring and pulse oximeter. The patient was sent for a CT of the abdomen and pelvis while in the emergency department, findings above. The patient was sent for an ultrasound of the pelvis w/ transvaginal while here in the emergency department, findings above. I personally reviewed the laboratory results with the Patient and answered all related questions prior to discharge. Findings and plan explained to the Patient. Patient discharged home with instructions regarding supportive care, medications, and reasons to return. The importance of close follow-up was reviewed. The patient was prescribed Mckeesport and Zofran. Impression & Plan Medical Decision Making: This 34 year old woman presents complaining of left flank pain and urinary symptoms. She gave a history of a previous negative urinalysis in clinic. I considered a broad differential including: occult UTI, urinary tract obstruction such as from a stone or other intraabdominal or retroperitoneal process. However, evaluation here is relatively negative. She does appear to have a small left ovarian cystwhich may be the cause of her symptoms. I did discuss this with her that since this is obviously nothemorrhagic or leaking, I cannot definitely attribute her symptoms to it. In the face of a negative examination, I think it would be reasonably to treat symptomatically with close follow up. I did discuss with her that there may be other etiologies of pain that we are unable to identify here includingendometriosis. She denies any previous history of sexual abuse that might account for a pelvic pain on that basis. Plan: I discharged the patient home with oral Mckeesport for pain as well as Zofran as needed for nausea. Abdominal instructions, recheck in clinic tomorrow, return to the ER sooner if worse or new symptoms. Diagnosis: 1. (789.04) Abdominal pain, left lower quadrant IGlroia, froilan serving as a scribe on 02/08/2014 at 10:39 AM to personally document services performed by Dr. Tate based on my observations and the provider's statements to me. 02/08/2014 [facility] EMERGENCY DEPARTMENT Mili Tate MD 02/08/14 1535 Dorothy Sandoval RN - 02/08/2014 10:29 AM CDT In Triage: ABC's intact. Alert and oriented x 3. Pt c/o left back and abdominal/flank pain that started on Friday. No n/v/fevers. UA at clinic on Friday was negative for UTI. Pain persists. documented in this encounter Plan of Treatment Not on filedocumented as of this encounter Procedures Procedure Name Priority Date/Time Associated Comments Diagnosis US PELVIS COMPLETE W STAT 02/08/2014 2:30 PM R esults for this TRANSVAGINAL AND CDT procedure a re in DOPPLER LIMITED the results section. CT ABDOMEN PELVIS W/O STAT 02/08/2014 11:47 Re sults for this CONTRAST AM CDT procedure are i n the results section. ROUTINE UA WITH STAT 02/08/2014 11:15 Results for this MICROSCOPIC AM CDT procedure are i n the results section. CBC WITH PLATELETS & STAT 02/08/2014 10:44 Res ults for this DIFFERENTIAL AM CDT procedure are i n the results section. HCG QUALITATIVE STAT 02/08/2014 10:44 Results for this AM CDT procedure are i n the results section. BASIC METABOLIC PANEL STAT 02/08/2014 10:44 Re sults for this AM CDT procedure are i n the results section. documented in this encounter Results US Pelvic Complete w Transvaginal & Abd/Pel Duplex Limited (02/08/2014 2:30 PM CDT) Anatomical Region Laterality Modality Abdomen/Pelvis Ultrasound Specimen (Source) Anatomical Location Collection Method / Collectio n Time Received Time / Laterality Volume Impressions 02/08/2014 4:14 PM CDT IMPRESSION: No torsion demonstrated. ZINA MURRAY MD Narrative 02/08/2014 4:14 PM CDT ULTRASOUND PELVIS ??WITH TRANSVAGINAL IMAGING ??02/08/2014 2:30 PM HISTORY: Left lower quadrant pain. COMPARISON: None. FINDINGS: ??Transvaginal images were per formed to better evaluate the patient's uterus, ovaries and endometria l stripe. No fibroids are evident. The uterus is n ormal. Endometrial stripe measures 13 mm and is normal for patient 's age and menstrual status. The right ovary is normal. The left ovar y demonstrates a 2.3 cm simple cyst and a small ruptured follicle. Dopp ler spectral waveform analysis demonstrates blood flow to both ovaries. No adnexal masses are present. No free pelvic fluid is present . Procedure Note Zina Murray MD - 02/08/2014Fo rmatting of this note might be different from the original. ULTRASOUND PELVIS WITH TRANSVAGINAL IMAG ING 02/08/2014 2:30 PM HISTORY: Left lower quadrant pain. COMPARISON: None. FINDINGS: Transvaginal images were perfo rmed to better evaluate the patient's uterus, ovaries and endometria l stripe. No fibroids are evident. The uterus is n ormal. Endometrial stripe measures 13 mm and is normal for patient 's age and menstrual status. The right ovary is normal. The left ovar y demonstrates a 2.3 cm simple cyst and a small ruptured follicle. Dopp ler spectral waveform analysis demonstrates blood flow to both ovaries. No adnexal masses are present. No free pelvic fluid is present . IMPRESSION IMPRESSION: No torsion demonstrated. ZINA MURRAY MD Mili Tate MD IMG US ORDERABLES CT Abdomen Pelvis w/o Contrast (02/08/2014 11:47 AM CDT) Anatomical Region Laterality Modality Abdomen/Pelvis, SUBRAD CT BODY, UMP CT ABDOMEN PELVIS Computed Tomography Specimen (Source) Anatomical Location Collection Method / Collectio n Time Received Time / Laterality Volume Impressions 02/08/2014 4:13 PM CDT IMPRESSION: 1. No evidence for renal, ureteral, or b ladder calculi. 2. Small cyst or follicle in the left ov sylvester. ZINA MURRAY MD Narrative 02/08/2014 4:[address] ABDOMEN AND PELVIS WITHOUT CONTRAST 02/08/2014 11:47 AM HISTORY: Abdominal pain COMPARISON: None TECHNIQUE: Axial CT images of the abdome n and pelvis from the diaphragm to the symphysis pubis were ac quired without IV contrast. FINDINGS: There are no stones seen withi n either kidney, either ureter, or the bladder. There is no hydr oureter or hydronephrosis. There is no perinephric fat stranding. K idneys are normal in size and configuration. Unremarkable visualized a ppendix. There are no dilated loops of small intestine or large bowel to suggest ileus or obstruction. No diverticulitis. Nonaneur ysmal aorta. Visualized solid organs grossly unremarkable in the absen ce of contrast. No free air or free fluid. Small cyst or follicle in th e left ovary. Pelvic structures otherwise unremarkable. The r emainder of the visualized abdomen is unremarkable on this noncontr ast scan. Survey of the visualized bony structures demonstrates no destructive bony lesions. The visualized lung bases are unremarkab le. Procedure Note Zina Murray MD - 02/08/2014Fo rmatting of this note might be different from the original. CT ABDOMEN AND PELVIS WITHOUT CONTRAST 1 11:47 AM HISTORY: Abdominal pain COMPARISON: None TECHNIQUE: Axial CT images of the abdome n and pelvis from the diaphragm to the symphysis pubis were ac quired without IV contrast. FINDINGS: There are no stones seen withi n either kidney, either ureter, or the bladder. There is no hydr oureter or hydronephrosis. There is no perinephric fat stranding. K idneys are normal in size and configuration. Unremarkable visualized a ppendix. There are no dilated loops of small intestine or large bowel to suggest ileus or obstruction. No diverticulitis. Nonaneur ysmal aorta. Visualized solid organs grossly unremarkable in the absen ce of contrast. No free air or free fluid. Small cyst or follicle in th e left ovary. Pelvic structures otherwise unremarkable. The r emainder of the visualized abdomen is unremarkable on this noncontr ast scan. Survey of the visualized bony structures demonstrates no destructive bony lesions. The visualized lung bases are unremarkab le. IMPRESSION IMPRESSION: 1. No evidence for renal, ureteral, or b ladder calculi. 2. Small cyst or follicle in the left ov sylvester. ZINA MURRAY MD Mili Tate MD IMG CT ORDERABLES (ABNORMAL) UA with Microscopic (02/08/2014 11:15 AM CDT) [facility] gist Method Time Signature Color Urine Light Yellow [facility] Appearance Urine Clear [facility] Glucose Urine Negative NEG mg/dL [facility] Bilirubin Urine Negative NEG [facility] Ketones Urine Negative NEG mg/dL [facility] Specific [place] 1.010 1.003 - [place] Urine 1.035 [facility] Blood Urine Negative NEG [facility] pH Urine 6.5 5.0 - 7.0 [place] pH [facility] Protein Albumin Negative NEG mg/dL [facility] Urobilinogen Normal 0.0 - 2.0 [place] mg/dL mg/dL [facility] Nitrite Urine Negative NEG [facility] Leukocyte Negative NEG [place] Esterase Urine [facility] Source Midstream [facility] WBC Urine <1 0 - 2 [place] /HPF [facility] RBC Urine 0 0 - 2 [place] /HPF [facility] Bacteria Urine Few (A) NEG /HPF [facility] Squamous <1 0 - 1 [place] Epithelial /HPF /HPF [facility] Specimen Anatomical Collection Method Collection Time Receive d Time (Source) Location / / Volume Laterality Urine specimen URINE SPECIMEN 02/08/2014 11:15 014 (specimen) OBTAINED BY CLEAN AM CDT 11:20 AM C DT CATCH PROCEDURE / Unknown Mili Tate MD LAB - URINE ORDERABLES Performing Organization Address City/[facility]/ZIP Code Phon e Lionel Howell [facility] [address] [place], [place] [address] [facility] HCG QUALitative (02/08/2014 10:44 AM CDT) Patholo gist Method Time Signature HCG Qualitative Negative NEG [facility] Specimen Anatomical Collection Method Collection Time Receive d Time (Source) Location / / Volume Laterality Blood specimen 02/08/2014 10:44 4 (specimen) AM CDT 10:53 AM CDT Mili Tate MD LAB - BLOOD ORDERABLES Performing Organization Address [facility] Phon e Lionel Howell [facility] [address] [place], [place] [address] [facility] Basic metabolic panel (02/08/2014 10:44 AM CDT) P athologist Signature Sodium 138 133 - 144 [place] mmol/L [facility] Potassium 4.1 3.4 - 5.3 [place] mmol/L [facility] Chloride 108 94 - 109 [place] mmol/L [facility] Carbon Dioxide 26 20 - 32 [place] mmol/L [facility] Anion Gap 4 3 - 14 [place] mmol/L [facility] Glucose 94 70 - 99 [place] mg/dL [facility] Comment: Effective 11/10/2013, the reference range for this assay has changed to reflect new instrumentation/methodology. Urea Nitrogen 13 7 - 30 mg/dL [facility] Comment: Effective 11/10/2013, the reference range for this assay has changed to reflect new instrumentation/methodology. Creatinine 0.84 0.52 - 1.04 mg/dL [facility] GFR Estimate 78 >60 mL/min/1.7m2 [facility] Comment: Non GFR Calc GFR Estimate If Black >90 >60 mL/min/1.7m2 F [facility] GFR Calc [facility] Calcium 8.8 8.5 - 10.1 mg/dL [facility] Comment: Effective 11/10/2013, the reference range for this assay has changed to reflect new instrumentation/methodology. Specimen Anatomical Collection Method Collection Time Receive d Time (Source) Location / / Volume Laterality Blood specimen 02/08/2014 10:44 4 (specimen) AM CDT 10:53 AM CDT Mili Tate MD LAB - BLOOD ORDERABLES Performing Organization Address City/State/ZIP Code Phon e Number M [facility] [address] [place], [place] [address] [facility] CBC with platelets differential (02/08/2014 10:44 AM CDT) [facility] gist Method Time Signature WBC 5.7 4.0 - [place] [address] RBC Count 4.42 3.8 - 5.2 [place] 10e12/L [facility] Hemoglobin 13.0 11.7 - [place] 15.7 g/dL [facility] Hematocrit 38.9 35.0 - [place] 47.0 % [facility] MCV 88 78 - 100 [place] fl [facility] MCH 29.4 26.5 - [place] 33.0 pg [facility] MCHC 33.4 31.5 - [place] 36.5 g/dL [facility] RDW 12.9 10.0 - [place] 15.0 % [facility] Platelet Count 214 150 - 450 [place] 10e9/L [facility] Diff Method Automated [facility] % Neutrophils 62.8 % [facility] % Lymphocytes 25.0 % [facility] % Monocytes 9.9 % [facility] % Eosinophils 1.9 % [facility] % Basophils 0.2 % [facility] % Immature 0.2 % [place] Granulocytes [facility] Absolute 3.6 1.6 - 8.3 [place] Neutrophil 10e9/L [facility] Absolute 1.4 0.8 - 5.3 [place] Lymphocytes 10e9/L [facility] Absolute 0.6 0.0 - 1.3 [place] Monocytes [address] [place] [address] LAB Absolute 0.1 0.0 - 0.7 [place] Eosinophils [address] [place] [address] LAB Absolute 0.0 0.0 - 0.2 [place] Basophils [address] [place] [address] LAB Abs Immature 0.0 0 - 0.4 [place] Granulocytes [address] [place] [address] LAB Specimen Anatomical Collection Method Collection Time Receive d Time (Source) Location / / Volume Laterality Blood specimen 02/08/2014 10:44 4 (specimen) AM CDT 10:53 AM CDT Mili Tate MD LAB - BLOOD ORDERABLES Performing Organization Address City/State/ZIP Code Phon e Number M [place] [address] [place] [address] [facility] documented in this encounter Visit Diagnoses Diagnosis Abdominal pain, left lower quadrant - Pr imary documented in this encounter Administered Medications Inactive Administered Medications - up to 3 most recent administrations Medication Order MAR Action Action Date Dose Rate Site HYDROmorphone (PF) (DILAUDID) Given 02/08/2014 12:10 PM CDT 0.5 mg injection 0.5 mg 0.5 mg, Intravenous, EVERY 15 MIN PRN, moderate to severe pain, Starting on Fri02/08/14 at 1046, For 3 doses Given 02/08/2014 11:25 AM CDT 0.5 mg Given 02/08/2014 10:54 AM CDT 0.5 mg HYDROmorphone (PF) (DILAUDID) injection 0.5 Given 02/08/2014 2:23 PM CDT 0.5 mg mg 0.5 mg, Intravenous, EVERY 15 MIN PRN, moderate to severe pain, Starting on Fri02/08/14 at 1350, For 3 doses ondansetron (ZOFRAN) injection 4 mg Given 02/08/2014 10:54 AM CDT 4 mg 4 mg, Intravenous, EVERY 30 MIN PRN, nausea, vomiting, Administer over 2-5 Minutes, Starting on Fri02/08/14 at 1046, For 3 doses, May repeat in 30 minutes as needed, up to 3 doses. sodium chloride 0.9 % BOLUS New Bag 02/08/2014 10:48 AM CDT 1, 000 mLs 1000 mL/hr 1,000 mL Intravenous, 1,000 mL, ONCE, at 1,000 mL/hr, Administer over 1 Hours, On Fri02/08/14 at 1047, For 1 dose documented in this encounter Active and Recently Administered Medications Times are shown in CDT. Scheduled Medication Order 02/06/2014 02/07/2014 02/08/2014 sodium chloride 0.9 % BOLUS 1,000 mL (COMPLETED) 1048 (New Bag - Provider: Kimberly Le RN)1208 (Stopped - Provider: Birgit Correia, ANGE) Intravenous, 1,000 mL, ONCE, at 1,000 mL /hr, Administer over 1 Hours, On Fri02/08/14 at 1047, For 1 dose PRN Medication Order 02/06/2014 02/07/2014 02/08/2014 HYDROmorphone (PF) (DILAUDID) injection 0.5 mg (COMPLETED) 1054 (Given - Provider: Kimberly Le RN)1125 (Given - Provider: Kimberly Le RN)1210 (Given - Provider: Birgit Correia, ANGE) 0.5 mg, Intravenous, EVERY 15 MIN PRN, m oderate to severe pain, Starting on Fri02/08/14 at 1046, For 3 doses HYDROmorphone (PF) (DILAUDID) injection 0.5 mg (CANCELED) 1423 (Given - Provider: Kimberly Le, ANGE) 0.5 mg, Intravenous, EVERY 15 MIN PRN, 3 doses, Starting Fri02/08/14 at 1350, Until Fri02/08/14 at 1705, moderate to severe pain ondansetron (ZOFRAN) injection 4 mg (CANCELED) 1054 (Given - Provider: Kimberly Le, ANGE) 4 mg, Intravenous, EVERY 30 MIN PRN, amador sea, vomiting, for 2 Minutes, Starting Fri02/08/14 at 1046, For 3 doses, May repeat in 30 minutes as needed, up to 3 doses. documented in this encounter Care Teams Agricultural Service Technician Relationship Specialty Start Date End Date Jamin Silva MD PCP - General Family Medicine - Sports 06/01/13 Medicine documented as of this encounter
--- OUTSIDE RECORDS SUMMARY | 2021-11-21 01:57 | XMS_ITS | Encounter Summary ---
:1980 Author Organization [place] Address [facility]ly [facility], [facility]0 [facility] [place] [address] Care Team Providers Name Role Phone Jamin Silva MD Primary Care Provider Reason for Visit Reason Comments Abdominal Pain Encounter Details Date Type Department Care Team Description 02/18/2014 - Emergency [facility] Lindsay Lu Ab dominal pain, left 02/19/2014 [place] [facility] lower quadrant Dept SKIN REJUVENATION (Primary Dx) [address], [place] [address] [facility] [id number] [facility] [phone] [place] [id number] (Wo rk) Social History Tobacco Use Types Packs/Day Years Used Date Current Every Day Smoker 0.25 Alcohol Use Standard Drinks/Week Comments No 0 (1 standard drink = 0.6 oz pure alcoho l) Sex Assigned at Date Recorded Not on file documented as of this encounter Last Filed Vital Signs Vital Sign Reading Time Taken Comments Blood Pressure 115/78 02/19/2014 12:03 AM HOUSING PROJECT MANAGER Pulse 79 02/19/2014 12:03 AM HOUSING PROJECT MANAGER Temperature 36.8 ??C (98.2 ??F) 02/18/2014 8:16 PM HOUSING PROJECT MANAGER Respiratory Rate 18 02/18/2014 8:16 PM HOUSING PROJECT MANAGER Oxygen Saturation 98% 02/19/2014 12:03 AM HOUSING PROJECT MANAGER Inhaled Oxygen Concentration - - Weight 77.6 kg (171 lb) 02/18/2014 8:16 PM HOUSING PROJECT MANAGER Height - - Body Mass Index - - documented in this encounter Discharge Instructions Discharge InstructionsLindsay Lu MD - 02/18/2014 11:38 PM HOUSING PROJECT MANAGER Discharge Instructions Abdominal Pain Abdominal pain can [...] directed by your doctor today. Before using xisy-rre-namteik medications, ask your doctor and make sure [...] contain Tylenol?? (acetaminophen), including Vicodin??, Tylenol #3??, Rebuck??, Lortab??, and Percocet??. You should not take [...] if there is anything that worries you. ING PROJECT MANAGER documented in this encounter Medications at Time of Discharge Medication Sig Dispensed Refills Start Date End Date albuterol (PROAIR HFA, Inhale 2 puffs into 0 PROVENTIL HFA, VENTOLIN the lungs every 6 HFA) 108 (90 BASE) MCG/ACT hours inhaler ROPINIROLE HCL PO Take 2.5 mg by 0 mouth daily SERTRALINE HCL PO Take 100 mg by 0 mouth daily polyethylene glycol Take 17 g by mouth 527 g 0 02/13/20 14 03/14/2014 (MIRALAX) powder daily BuPROPion HCl (WELLBUTRIN 0 11/13/2015 PO) Ferrous Sulfate (IRON 0 SUPPLEMENT PO) Omeprazole (PRILOSEC PO) Take 40 mg by mouth 0 11/13/2015 every morning ondansetron (ZOFRAN ODT) 4 Take 1 tablet (4 10 tablet 0 03/30/2014 MG disintegrating tablet mg) by mouth every 8 hours as needed for nausea documented as of this encounter ED Notes Lindsay Lu MD - 02/18/2014 9:02 PM CST History Chief Complaint: Abdominal Pain HPI Lizette Serrato is a 34 year old female who presents with abdominal pain. The patient reports that he has been experiencing a left abdominal pain (6/10 in severity) since February 08 with associated nausea, chills, and mild back pain. The patient was seen on the 08 of February and was told that she had a left ovarian cyst. She re-presented on 02/12 for increased pain and was told that the ovary had burst. She presents out of concern for worsening of her abdominal pain. She previously had a L tubal ligation and denies a history of endometriosis. The patient denies diarrhea, constipation, vomiting, fever, bloody stools, hematuria, frequency, dysuria, or any other physical complaints at this time. She has not followed up with SHRIMP BOAT CAPTAIN since discharge from the ED. Allergies: NKDA Medications: Ropinirole Wellbutrin Prilosec Proair Sertraline FE Miralax Zofran Past Medical History: Asthma Depression RLS Past Surgical History: L Tubal ligation Family / Social History: No past pertinent family history. Marital Status: [4] Social History: The patient is a current smoker. The patient does not drink alcohol. Review of Systems Constitutional: Positive for chills. Negative for fever. Gastrointestinal: Positive for nausea and abdominal pain. Negative for vomiting, diarrhea, constipation and blood in stool. Genitourinary: Negative for dysuria, frequency and hematuria. Musculoskeletal: Positive for back pain. All other systems reviewed and are negative. Physical Exam First Vitals: BP: 115/82 mmHg Heart Rate: 80 Temp: 98.2 ??F (36.8 ??C) Resp: 18 Weight: 77.565 kg (171 lb) SpO2: 100 % Physical Exam Physical Exam Constitutional: The patient is oriented [...] Normal range of motion. Neck supple. Cardiovascular: Normal rate, regular rhythm, normal heart sounds, and intact distal pulses. Pulmonary/Chest: Effort normal and breath sounds equal bilaterally. No crackles or wheezing. Abdominal: Soft. Bowel sounds are normal. Left lower quadrant abdominal pain. No rebound and no guarding. Musculoskeletal: Normal range of motion. No extremity tenderness or edema. No CVA tenderness. Lymphadenopathy: No cervical adenopathy. Neurological: Alert and oriented. Normal strength. No cranial nerve deficit or sensory deficit. Skin: Skin is dry. No rash noted. Psychiatric: Normal mood and affect. Emergency Department Course Imaging: Radiographic findings were communicated with the patient who voiced understanding of the findings. US Pelvic Complete w Transvag and Abd/Pel Duplex Limited: IMPRESSION: 1. No evidence for ovarian torsion. Normal blood flow is seen in both ovaries. 2. Collapsing follicle left ovary. 3. Small amount of fluid in the endometrial cavity. Per radiology. Laboratory: I personally reviewed the laboratory results with the Patient and answered all related questions prior to discharge. BMP: CA 8.1 (L) Creat 0.85 o/w WNL CBC: WBC 7.6 HGB 12.7 PLT 200 WNL Wet prep: Negative Chlamydia trachomatis PCR: Pending Neisseria gonorrhoea PCR: Pending HCG: Negative UA: Mucous Present (A) o/w Negative Interventions: 2115 Benadryl 25 mg IV 2113 Toradol 30 mg IV 2117 Compazine 10 mg IV 2113 NaCl 1000 mL IV Percocet 1po Emergency Department Course: Nursing notes and vitals reviewed. I performed an exam of the patient as documented above. IV inserted and blood drawn. The patient was placed on continuous cardiac monitoring and pulse oximetry. Recheck - symptoms improving. The patient was sent for a US Pelvic Complete w Transvag and Abd/Pel Duplex Limited while in the emergency department, findings above. Findings and plan explained to the Patient. Patient discharged home with instructions regarding supportive care, medications, and reasons to return. The importance of close follow-up was reviewed. Impression & Plan Medical Decision Making: Lizette Serrato is a 34 year old female with a history of chronic abdominal pain who presents with left lower quadrant abdominal pain. She has had recent visits here with Ultrasound's showing ovarian cyst that ruptured, and no ovarian torsion. She continues to have abdominal pain, although has not followed up with liquefied petroleum gasfitter. Patient's pain improved with interventions in the ED. I did discuss our chronicand recurrent pain policy with the patient. Patient did have a US that showed a collapsed 1 cm cyst.There is no evidence of torsion, mass, diverticulitis, or other abnormalities. Bloodwork, UA and wetprep were negative. I will have them follow up with liquefied petroleum gasfitter in the next 3 days and return with worsening pain, vomiting or fever. Diagnosis: 1. Left lower quadrant abdominal pain. IBimal, am serving as a scribe on 02/18/2014 at 9:02 PM to personally document services performed by Dr. Lu, Lindsay Mcdonough MD based on my observations and the provider's statements to me. Bimal Calderón 02/18/2014 [facility] Lindsay Lu MD 02/19/14 0117 ING PROJECT MANAGER Floridalma Rivas, RN - 02/18/2014 8:15 PM CST Alert and oriented x 3 airway,breathing and circulation intact LLQ abd pain, has had ovarian cyst since feb 08 , pain worse yesterday, nausea ING PROJECT MANAGER documented in this encounter Plan of Treatment Not on filedocumented as of this encounter Procedures Procedure Name Priority Date/Time Associated Comments Diagnosis US PELVIS COMPLETE W STAT 02/18/2014 10:45 Res ults for this TRANSVAGINAL AND PM HOUSING PROJECT MANAGER procedure a re in DOPPLER LIMITED the results section. HCG QUALITATIVE URINE STAT 02/18/2014 9:53 PM Results for this HOUSING PROJECT MANAGER procedure are i n the results section. ROUTINE UA WITH STAT 02/18/2014 9:53 PM Result s for this MICROSCOPIC HOUSING PROJECT MANAGER procedure are i n the results section. WET PREPARATION STAT 02/18/2014 9:31 PM Result s for this HOUSING PROJECT MANAGER procedure are i n the results section. NEISSERIA GONORRHOEAE STAT 02/18/2014 9:31 PM Abdominal Renny n, Results for this PCR HOUSING PROJECT MANAGER Left Lower Quadrant procedur e are in the results section. CHLAMYDIA TRACHOMATIS STAT 02/18/2014 9:31 PM Abdominal Renny n, Results for this PCR HOUSING PROJECT MANAGER Left Lower Quadrant procedur e are in the results section. CBC WITH PLATELETS & STAT 02/18/2014 9:11 PM R esults for this DIFFERENTIAL HOUSING PROJECT MANAGER procedure are i n the results section. BASIC METABOLIC PANEL STAT 02/18/2014 9:11 PM Results for this HOUSING PROJECT MANAGER procedure are i n the results section. documented in this encounter Results US Pelvic Complete w Transvaginal & Abd/Pel Duplex Limited (02/18/2014 10:45 PM HOUSING PROJECT MANAGER) Anatomical Region Laterality Modality Abdomen/Pelvis Ultrasound Specimen (Source) Anatomical Location Collection Method / Collectio n Time Received Time / Laterality Volume Impressions 02/18/2014 11:08 PM HOUSING PROJECT MANAGER IMPRESSION: 1. No evidence for ovarian torsion. Norm al blood flow is seen in both ovaries. 2. Collapsing follicle left ovary. 3. Small amount of fluid in the endometr ial cavity. BETSY MILLS MD Narrative 02/18/2014 11:08 PM HOUSING PROJECT MANAGER US PELVIS COMPLETE W TRANSVAGINAL AND DOPPLER LIMITED ??02/18/2014 10:45 PM HISTORY: ??Pelvic pain, COMPARISON: Ultrasound dated 02/12/2014 TECHNIQUE: Transabdominal and transvagin al imaging was performed. Transvaginal exam performed to better ev aluate the uterus, ovaries and adnexa. FINDINGS: The uterus measures 8.5 cm in length. There is fluid in the endometrial cavity. The endometrium ar ures about 9 mm in thickness. No fibroids are seen. The right ovary ap pears normal it has normal blood flow with normal Doppler waveforms . The left ovary is normal in size with normal blood flow and normal D oppler waveforms. There is a 1 cm complex collapsing follicle in the le ft ovary. There are also ??two 1.7 cm simple cysts in the left ovary. N o adnexal mass. No free fluid. Procedure Note Aryan Mills MD - 02/18/2014For matting of this note might be different from the original. US PELVIS COMPLETE W TRANSVAGINAL AND DO PPLER LIMITED 02/18/2014 10:45 PM HISTORY: Pelvic pain, COMPARISON: Ultrasound dated 02/12/2014 TECHNIQUE: Transabdominal and transvagin al imaging was performed. Transvaginal exam performed to better ev aluate the uterus, ovaries and adnexa. FINDINGS: The uterus measures 8.5 cm in length. There is fluid in the endometrial cavity. The endometrium ar ures about 9 mm in thickness. No fibroids are seen. The right ovary ap pears normal it has normal blood flow with normal Doppler waveforms . The left ovary is normal in size with normal blood flow and normal D oppler waveforms. There is a 1 cm complex collapsing follicle in the le ft ovary. There are also two 1.7 cm simple cysts in the left ovary. N o adnexal mass. No free fluid. IMPRESSION IMPRESSION: 1. No evidence for ovarian torsion. Norm al blood flow is seen in both ovaries. 2. Collapsing follicle left ovary. 3. Small amount of fluid in the endometr ial cavity. BETSY MILLS MD Lindsay Lu MD IMG US ORDERABLES HCG qualitative urine (02/18/2014 9:53 PM HOUSING PROJECT MANAGER) P athologist Signature HCG Qual Urine Negative NEG [facility] Specimen Anatomical Collection Method Collection Time Receive d Time (Source) Location / / Volume Laterality Urine specimen URINE SPECIMEN 02/18/2014 9:53 PM 02/18 (specimen) OBTAINED BY CLEAN HOUSING PROJECT MANAGER 10:[address] CATCH PROCEDURE / Unknown Lindsay Lu MD LAB - URINE ORDERABLES Performing Organization Address City/State/ZIP Code Phon e Number M [facility] [address] [place], [place] [address] [facility] (ABNORMAL) UA with Microscopic (02/18/2014 9:53 PM HOUSING PROJECT MANAGER) Patholo gist Method Time Signature Color Urine Yellow [facility] Appearance Urine Clear [facility] Glucose Urine Negative NEG mg/dL [facility] Bilirubin Urine Negative NEG [facility] Ketones Urine Negative NEG mg/dL [facility] Specific [place] 1.016 1.003 - [place] Urine 1.035 [facility] Blood Urine Negative NEG [facility] pH Urine 6.0 5.0 - 7.0 [place] pH [facility] Protein Albumin Negative NEG mg/dL [facility] Urobilinogen Normal 0.0 - 2.0 [place] mg/dL mg/dL [facility] Nitrite Urine Negative NEG [facility] Leukocyte Negative NEG [place] Esterase Urine [facility] Source Midstream [facility] WBC Urine 0 0 - 2 [place] /HPF [facility] RBC Urine <1 0 - 2 [place] /HPF [facility] Squamous <1 0 - 1 [place] Epithelial /HPF /HPF [facility] Mucous Urine Present (A) NEG /LPF [facility] Specimen Anatomical Collection Method Collection Time Receive d Time (Source) Location / / Volume Laterality Urine specimen URINE SPECIMEN 02/18/2014 9:53 PM 02/18 (specimen) OBTAINED BY CLEAN HOUSING PROJECT MANAGER 10:[address] CATCH PROCEDURE / Unknown Lindsay Lu MD LAB - URINE ORDERABLES Performing Organization Address City/State/ZIP Code Phon e Number M [facility] [address], [place] [address] [facility] Neisseria gonorrhoea PCR (02/18/2014 9:31 PM HOUSING PROJECT MANAGER) Component Value Ref Test Analysis Performed At [facility] Method Time Signature Specimen [facility] N Gonorrhea Negative NEG [facility] PCR Negative for N. gonorrhoeae rRNA by transcripti on mediated amplification. MICROBIOLOGY A negative result by transc ription mediated amplification does not preclude the presence of N. gonorrhoeae infection because re sults are dependent on proper and adequate collection, absence of inhibitors, and suffici ent rRNA to be detected. Specimen Anatomical Collection Method Collection Time Receive d Time (Source) Location / / Volume Laterality Vaginal swab 02/18/2014 9:31 PM 4 9:35 (specimen) HOUSING PROJECT MANAGER PM HOUSING PROJECT MANAGER Lindsay Lu MD LAB - MICRO GENERAL ORDERABL ES Performing Organization Address City/[facility] Code Phon e Number [address] LAB [facility] MICROBIOLOGY Chlamydia trachomatis PCR (02/18/2014 9:31 PM HOUSING PROJECT MANAGER) Component Value Ref Test Analysis Performed At [facility] Specimen [facility] Chlamydia Negative NEG [facility] Trachomatis Negative for C. trachomatis rRNA by wild life manager mediated amplification. MICROBIOLOGY PCR A negative result by transc ription mediated amplification does not preclude the presence of C. trachomatis infection because re sults are dependent on proper and adequate collection, absence of inhibitors, and suffici ent rRNA to be detected. Specimen Anatomical Collection Method Collection Time Receive d Time (Source) Location / / Volume Laterality Vaginal swab 02/18/2014 9:31 PM 4 9:35 (specimen) HOUSING PROJECT MANAGER PM HOUSING PROJECT MANAGER Lindsay Lu MD LAB - MICRO GENERAL ORDERABL ES Performing Organization Address City/[facility] Phon e Number [address] LAB [facility] MICROBIOLOGY Wet prep (02/18/2014 9:31 PM HOUSING PROJECT MANAGER) [facility] Time Signature Specimen [facility] Wet Prep Few PMNs seen [facility] No clue cells seen [facility] No yeast seen [facility] No Trichomonas seen Micro Report FINAL [place] Status 02/18/2014 [facility] Specimen Anatomical Collection Method Collection Time Receive d Time (Source) Location / / Volume Laterality Vaginal swab 02/18/2014 9:31 PM 4 9:35 (specimen) HOUSING PROJECT MANAGER PM HOUSING PROJECT MANAGER Lindsay Lu MD LAB - MICRO GENERAL ORDERABL ES Performing Organization Address City/State/ZIP Code Phon e Number M [place] [address] [place], [place] [address] [facility] (ABNORMAL) Basic metabolic panel (02/18/2014 9:11 PM HOUSING PROJECT MANAGER) athologist Signature Sodium 139 133 - 144 [place] mmol/L [facility] Potassium 3.7 3.4 - 5.3 [place] mmol/L [facility] Chloride 109 94 - 109 [place] mmol/L [facility] Carbon Dioxide 24 20 - 32 [place] mmol/L [facility] Anion Gap 6 3 - 14 [place] mmol/L [facility] Glucose 82 70 - 99 [place] mg/dL [facility] Comment: Effective 11/10/2013, the reference range for this assay has changed to reflect new instrumentation/methodology. Urea Nitrogen 13 7 - 30 mg/dL [facility] Comment: Effective 11/10/2013, the reference range for this assay has changed to reflect new instrumentation/methodology. Creatinine 0.85 0.52 - 1.04 mg/dL [facility] GFR Estimate 77 >60 mL/min/1.7m2 [facility] Comment: Non GFR Calc GFR Estimate If Black >90 >60 mL/min/1.7m2 F [facility] GFR Calc [facility] LAB Calcium 8.1 (L) 8.5 - 10.1 mg/dL [facility] Comment: Effective 11/10/2013, the reference range for this assay has changed to reflect new instrumentation/methodology. Specimen Anatomical Collection Method Collection Time Receive d Time (Source) Location / / Volume Laterality Blood specimen 02/18/2014 9:11 PM 014 9:12 (specimen) HOUSING PROJECT MANAGER PM HOUSING PROJECT MANAGER Lindsay Lu MD LAB - BLOOD ORDERABLES Performing Organization Address City/State/ZIP Code Phon e Number M [facility] [address] [place], [place] [address] [facility] CBC with platelets differential (02/18/2014 9:11 PM HOUSING PROJECT MANAGER) [facility] gist Method Time Signature WBC 7.6 4.0 - [place] [address] LAB RBC Count 4.26 3.8 - 5.2 [place] 10e12L [facility] Hemoglobin 12.7 11.7 - [place] 15.7 g/dL [facility] Hematocrit 38.0 35.0 - [place] 47.0 % [facility] MCV 89 78 - 100 [place] fl [facility] MCH 29.8 26.5 - [place] 33.0 pg [facility] MCHC 33.4 31.5 - [place] 36.5 g/dL [facility] RDW 13.4 10.0 - [place] 15.0 % [facility] Platelet Count 200 150 - [address] LAB Diff Method Automated [facility] % Neutrophils 68.0 % [facility] % Lymphocytes 22.2 % [facility] % Monocytes 8.3 % [facility] % Eosinophils 1.3 % [facility] % Basophils 0.1 % [facility] % Immature 0.1 % [place] Granulocytes [facility] Absolute 5.2 1.6 - 8.3 [place] Neutrophil [facility] Absolute 1.7 0.8 - 5.3 [place] Lymphocytes [address] LAB Absolute 0.6 0.0 - 1.3 [place] Monocytes [address] [place] [address] LAB Absolute 0.1 0.0 - 0.7 [place] Eosinophils [address] [place] [address] LAB Absolute 0.0 0.0 - 0.2 [place] Basophils [address] [place] [address] LAB Abs Immature 0.0 0 - 0.4 [place] Granulocytes [address] [place] [address] LAB Specimen Anatomical Collection Method Collection Time Receive d Time (Source) Location / / Volume Laterality Blood specimen 02/18/2014 9:11 PM 014 9:12 (specimen) HOUSING PROJECT MANAGER PM HOUSING PROJECT MANAGER Lindsay Lu MD LAB - BLOOD ORDERABLES Performing Organization Address City/State/ZIP Code Phon e Number M [facility] [address] [place], [place] [address] [facility] documented in this encounter Visit Diagnoses Diagnosis Abdominal pain, left lower quadrant - Pr imary documented in this encounter Administered Medications Inactive Administered Medications - up to 3 most recent administrations Medication Order MAR Action Action Date Dose Rate Site diphenhydrAMINE (BENADRYL) Given 02/18/2014 9:16 PM HOUSING PROJECT MANAGER 25 mg injection 25 mg 25 mg, Intravenous, ONCE, On Fri02/18/14 at 2107, For 1 dose ketorolac (TORADOL) injection 30 mg Given 02/18/2014 9:14 PM HOUSING PROJECT MANAGER 30 mg 30 mg, Intravenous, ONCE, On Fri02/18/14 at 2107, For 1 dose, Do not give within 6 hours of Ibuprofen. oxyCODONE-acetaminophen (PERCOCET) 5-325 Given 02/18/2014 10 :43 PM HOUSING PROJECT MANAGER 1 tablet MG per tablet 1 tablet 1 tablet, Oral, ONCE, On Fri02/18/14 at 2241, For 1 dose, Maximum acetaminophen dose from all sources= 75 mg/kg/day not to exceed 4 grams oxyCODONE-acetaminophen (PERCOCET) 5-325 MG per tablet Starting on Fri02/18/14 at 2245, For 1 d JUAN CARLOS tejada ELIZABETH: cabinet override Maximum acetaminophen dose from all sources= 75 mg/kg/ day not to exceed 4 grams prochlorperazine (COMPAZINE) injection 1 0 mg Given 02/18/2014 9:18 PM HOUSING PROJECT MANAGER 10 mg 10 mg, Intravenous, ONCE, On Fri02/18/14 at 2107, For 1 dose sodium chloride 0.9 % BOLUS New Bag 02/18/2014 9:14 PM HOUSING PROJECT MANAGER 1,000 m Ls 1000 mL/hr 1,000 mL Intravenous, 1,000 mL, ONCE, at 1,000 mL/hr, Administer over 1 Hours, On Fri02/18/14 at 2107, For 1 dose documented in this encounter Active and Recently Administered Medications Times are shown in HOUSING PROJECT MANAGER. Scheduled Medication Order 02/17/2014 02/18/2014 02/19/2014 diphenhydrAMINE (BENADRYL) injection 25 mg (COMPLETED) 2115 (Given - Provider: Susan Izaguirre RN) 25 mg, Intravenous, ONCE, Fri02/18/14 at 2106, For 1 dose ketorolac (TORADOL) injection 30 mg (COMPLETED) 2113 (Given - Provider: Susan Izaguirre RN) 30 mg, Intravenous, ONCE, Fri02/18/14 at 2106, For 1 dose, Do not give within 6 hours of Ibuprofen. oxyCODONE-acetaminophen (PERCOCET) 5-325 MG per tablet 1 tab let (COMPLETED) 2240 (Due)2242 (Given - Provider: Brittney Feldman, ANGE) 1 tablet, Oral, ONCE, Fri02/18/14 at 224 1, For 1 dose, Maximum acetaminophen dose from all sources= 75 mg/kg/day not to exceed 4 grams prochlorperazine (COMPAZINE) injection 10 mg (COMPLETED) 2117 (Given - Provider: Susan Izaguirre RN) 10 mg, Intravenous, ONCE, Fri02/18/14 at 2106, For 1 dose sodium chloride 0.9 % BOLUS 1,000 mL (COMPLETED) 2113 (New Bag - Provider: Susan Izaguirre RN)2343 (Stopped - Provider: Brittney Feldman, ANGE) Intravenous, 1,000 mL, ONCE, at 1,000 mL /hr, Administer over 1 Hours, On Fri02/18/14 at 2106, For 1 dose documented in this encounter Care Teams Front Elevator Operator Relationship Specialty Start Date End Date Jamin Silva MD PCP - General Family Medicine - Sports 06/01/13 Medicine documented as of this encounter
--- OUTSIDE RECORDS SUMMARY | 2021-11-21 01:57 | XMS_ITS | Encounter Summary ---
:1980 Author Organization [facility] Address [address] [place] [id number] Care Team Providers Name Role Phone Jamin Silva MD Primary Care Provider Reason for Visit Reason Comments Pharyngitis Encounter Details Date Type Department Care Team Description 06/01/2013 Emergency [facility] Shon Patel, Acute pharyngitis [facility] Emergency Dep t (Primary Dx) [address] [facility] EM[facility]Y [facility] [phone] [id number] [employer] [phone] [address] [place], [place] [address] (Wo rk) Social History Tobacco Use Types Packs/Day Years Used Date Never Assessed Sex Assigned at Date Recorded Not on file documented as of this encounter Last Filed Vital Signs Vital Sign Reading Time Taken Comments Blood Pressure 121/81 06/01/2013 9:22 PM LOCK FITTER Pulse 76 06/01/2013 8:19 PM LOCK FITTER Temperature 36.7 ??C (98.1 ??F) 06/01/2013 8:19 PM LOCK FITTER Respiratory Rate 16 06/01/2013 9:22 PM LOCK FITTER Oxygen Saturation 99% 06/01/2013 9:22 PM LOCK FITTER Inhaled Oxygen Concentration - - Weight 79.4 kg (175 lb) 06/01/2013 8:19 PM LOCK FITTER Height - - Body Mass Index - - documented in this encounter Discharge Instructions Discharge InstructionsShon Patel MD - 06/01/2013 9:03 PM LOCK FITTER Home Back SP RU CH *PHARYNGITIS (Sore Throat),REPORT PENDING Pharyngitis (sore throat) is often due to a virus, but can also be caused by the?strep?bacteria. This is called?strep throat?? . Both viral and strep infection can cause throat pain that isworse when swallowing, aching all over with headache and fever. Both types of infections are contagious. They may be spread by coughing, kissing or touching others after touching your mouth or nose, sowash your hands often. A test has been done to determine whether or not you have strep throat. If it is positive for strep infection you will usually need to take antibiotics. If the test is negative, you probably have a viral pharyngitis, and antibiotic treatment will not help you recover. HOME CARE: ?? If your symptoms are severe, rest at home for the first 2-3 days. If you are told that your test is positive for strep, you should be off work and school for the first two days of antibiotic treatment. After that, you will no longer be as contagious. ?? Children: Use acetaminophen (Tylenol) for fever, fussiness or discomfort. In infants over six months of age, you may use ibuprofen (Children's Motrin) instead of Tylenol. [NOTE: If your child has chronic liver or kidney disease or ever had a stomach ulcer or GI bleeding, talk with your doctor before using these medicines.]?(Aspirin should never be used in anyone under 18 years of age who is ill with a fever. It may cause severe liver damage.) Adults: You may use acetaminophen (Tylenol) 650-1000 mg every 6 hours or ibuprofen (Motrin, Advil) 600 mg every 6-8 hours with food to control pain, if you are able to take these medicines. [NOTE: If you have chronic liver or kidney disease or ever had a stomach ulcer or GI bleeding, talk with your doctor before using these medicines.] ?? Throat lozenges or sprays (Chloraseptic and others), or gargling with warm salt water will reducethroat pain. Dissolve 1/2 teaspoon of salt in 1 glass of warm water. This is especially useful just before meals. FOLLOW UP with your doctor as advised by our staff if you are not improving over the next week. GET PROMPT MEDICAL ATTENTION?? if any of the following occur: ?? Fever over 101??F (38.3??C) for more than three days ?? New or worsening ear pain, sinus pain or headache ?? Unable to swallow liquids or open your mouth wide due to throat pain ?? Trouble breathing ?? Muffled voice ?? New rash ?? [phone] [facility], [address] [place] [address]. All rights reserved. This information is not intended as a substitute for professional medical care. Always follow your healthcare professional's instructions. FITTER documented in this encounter Medications at Time of Discharge Medication Sig Dispensed Refills Start Date End Date SERTRALINE HCL PO Take 100 mg by mouth 0 daily Ferrous Sulfate (IRON 0 SUPPLEMENT PO) documented as of this encounter ED Notes Shon Patel MD - 06/01/2013 8:31 PM CST History Chief Complaint: Pharyngitis HPI Lizette Paula is a 33 year old female who presents with pharyngitis. The patient reports that her pain started three days ago, along with swollen lymph glands. She notes a fever of 102.5 two weeks ago,but nothing since then. She denies any recent fever, chills, nausea, vomiting, rhinorrhea, cough, dyspnea, chest pain or any further physical complaints. Allergies: No Known drug Allergies Medications: SERTRALINE HCL PO Ferrous Sulfate (IRON SUPPLEMENT PO) Past Medical History: History reviewed. No pertinent medical history. Past Surgical History: History reviewed. No pertinent surgical history. Family / Social History: History reviewed. No pertinent family history. Social History: No tobacco use. No alcohol use. Review of Systems Constitutional: Negative for fever and chills. HENT: Positive for sore throat. Negative for congestion and rhinorrhea. Respiratory: Negative for cough and shortness of breath. Cardiovascular: Negative for chest pain. Gastrointestinal: Negative for nausea and vomiting. All other systems reviewed and are negative. Physical Exam First Vitals: BP: 143/95 mmHg Pulse: 76 Temp: 98.1 ??F (36.7 ??C) Resp: 16 Weight: 79.379 kg (175 lb) SpO2: 100 % Physical Exam General: Patient is alert and interactive when I enter the room Head: The scalp, face, and head appear normal Eyes: The pupils are equal, round, and reactive to light Conjunctivae and sclerae are normal ENT: External acoustic canals are normal Pharynx is red, mildly swollen, no peritonsillar abscess, no pus. Uvula is in the midline Neck: Normal [...] interactions. Lymph: No anterior cervical lymphadenopathy noted Emergency Department Course Laboratory: Rapid strep: negative Beta strep culture: pending Interventions: Dexamethasone 12 mg PO Emergency Department Course: I reviewed the patient's medical record. The patient was placed on a sql data analyst and continuous pulse oximeter. The patient was seen and examined by myself. I discussed the course of care with the patient including laboratory studies. She understands and is agreeable to the plan. Findings and plan explained to the Patient. Patient discharged home, status improved, with instructions regarding supportive care, medications, and reasons to return as well as the importance of close follow-up was reviewed. Impression & Plan Medical Decision Making: Lizette Paula is a 33 year old female who presents for evaluation of a sore throat and clinical evidence of pharyngitis. The rapid strep test is negative, and formal culture has been set up in the lab.There is no clinical evidence of peritonsillar abscess, retropharyngeal abscess, Lemierre's Syndrome, epiglottis, or Marco's angina. The etiology is most likely viral. I have recommended treatment with analgesics, and we will await formal culture results. If the culture is positive, an ED physician will call the patient to initiate anti- microbial therapy. Return if increasing pain, change in voice, neck pain, vomiting, fever, or shortness of breath. Follow-up with primary physician if not improvingin 3-5 days. Given well appearance, I would not test further for other etiologies of serious bacterial infections. Patient has a concurrent URI, making viral etiologies more likely. If sore throat persists, mono testing indicated. Diagnosis: Visit Diagnosis, Associated Orders, and Comments 1. Acute pharyngitis (462) I, Christine Agudelo, am serving as a scribe at 8:31 PM on 06/01/2013 to document services personally performed by Dr. Patel, based on my observations and the provider's statements to me. Christine Agudelo 06/01/2013 [facility] EMERGENCY DEPARTMENT Shon Patel MD 06/02/13 0032 FITTER Lindsay Gregorio, ANGE - 06/01/2013 8:31 PM CST MD at bedside. FITTER Lindsay Gregorio, ANGE - 06/01/2013 8:18 PM CST severe sore throat for 3 days, was sick a couple weeks ago with vomiting and fever 102.5, no othercomplaints at this time FITTER documented in this encounter Plan of Treatment Not on filedocumented as of this encounter Procedures Procedure Name Priority Date/Time Associated Diagnosis Comme nts RAPID STREP SCREEN STAT 06/01/2013 8:17 PM Res ults for this THROAT SWAB LOCK FITTER procedure are i n the results section. BETA HEMOLYTIC Routine 06/01/2013 8:17 PM Results for this STREP GROUP A LOCK [facility]TER procedure are in CULTURE the results section. documented in this encounter Results Beta strep group A culture (06/01/2013 8:17 PM LOCK FITTER) Component Value Ref Test Analysis Performed At [facility] Range Method Time Signature Specimen Throat [facility] LAB Culture Micro No Beta [facility] Streptococcus MICROBIOLOGY isolated Micro Report FINAL 06/03/2013 [facility] Status MICROBIOLOGY Specimen Anatomical Collection Method Collection Time Receive d Time (Source) Location / / Volume Laterality 06/01/2013 8:17 PM 4 8:27 LOCK FITTER PM LOCK FITTER Shon Patel MD LAB - MICRO GENERAL ORDERABL ES Performing Organization Address City/State/ZIP Code Phon e Number [facility] [address] [place] [address] [facility] MICROBIOLOGY Rapid strep screen (06/01/2013 8:17 PM LOCK FITTER) Component Value Ref Test Analysis Performed At [facility] Range Method Time Signature Specimen Throat [facility] Rapid Strep A NEGATIVE: No Group A strepto coccal antigen detected by immunoassay, await [place] Screen culture report. [facility] Micro Report FINAL 06/01/2013 [facility] LAB Specimen Anatomical Collection Method Collection Time Receive d Time (Source) Location / / Volume Laterality Specimen from 06/01/2013 8:17 PM 06/01/19 14 8:27 throat LOCK FITTER PM LOCK FITTER (specimen) Shon Patel MD LAB - MICRO GENERAL ORDERABL ES Performing Organization Address City/State/ZIP Code Phon e Number [facility] [address] [place], [place] [address] [facility] documented in this encounter Visit Diagnoses Diagnosis Acute pharyngitis - Primary documented in this encounter Administered Medications Inactive Administered Medications - up to 3 most recent administrations Medication Order MAR Action Action Date Dose Rate Site dexamethasone (DECADRON) tablet 12 Given 06/01/2013 8:39 PM LOCK FITTER 12 mg mg 12 mg, Oral, ONCE, On Fri06/01/13 at 2044, For 1 dose documented in this encounter Active and Recently Administered Medications Times are shown in LOCK FITTER. Scheduled Medication Order 05/30/2013 05/31/2013 06/01/2013 dexamethasone (DECADRON) tablet 12 mg (COMPLETED) 2038 (Given - Provider: Lindsay Gregorio RN) 12 mg, Oral, ONCE, 06/01/13 at 2044, For 1 dose documented in this encounter Care Teams [employer] Cash[employer] Relationship Specialty Start Date End Date Jamin Silva MD PCP - General Family Medicine - Sports 06/01/13 Medicine documented as of this encounter
--- OUTSIDE RECORDS SUMMARY | 2021-11-21 01:57 | XMS_ITS | Encounter Summary ---
:1980 Author Organization [facility] Address [address] [place] [id number] Care Team Providers Name Role Phone Jamin Silva MD Primary Care Provider Reason for Visit Reason Comments Abdominal Pain Encounter Details Date Type Department Care Team Description [facility]2014 [facility] inal [facility], left lower quadrant (Primary Dx); [facility] Emergency Dep ralph Alvarenga MD Constipation [address] [facility] [id number] [address] [facility] [phone] [place], [place] [address] (Wo rk) Social History Tobacco Use Types Packs/Day Years Used Date Current Every Day Smoker 0.25 Alcohol Use Standard Drinks/Week Comments No 0 (1 standard drink = 0.6 oz pure alcoho l) Sex Assigned at Date Recorded Not on file documented as of this encounter Last Filed Vital Signs Vital Sign Reading Time Taken Comments Blood Pressure 109/68 02/12/2014 4:30 PM CDT Pulse 86 02/12/2014 1:30 PM CDT Temperature 37.1 ??C (98.7 ??F) 02/12/2014 1:30 PM CDT Respiratory Rate 18 02/12/2014 1:30 PM CDT Oxygen Saturation 97% 02/12/2014 4:30 PM CDT Inhaled Oxygen Concentration - - Weight - - Height - - Body Mass Index - - documented in this encounter Discharge Instructions Discharge InstructionsRuth Pacheco MD - 02/12/2014 4:32 PM CDT Discharge Instructions Abdominal Pain Abdominal [...] directed by your doctor today. Before using rrzf-djk-nppzoly medications, ask your doctor and make sure [...] contain Tylenol?? (acetaminophen), including Vicodin??, Tylenol #3??, [place]??, Lortab??, and Percocet??. You should not take [...] is anything that worries you. Discharge Instructions Constipation Your doctor has diagnosed [...] system. Return to the Emergency Department if: ??? Your abdominal pain worsens or does not improve after a bowel movement. ??? You become very weak. ??? You get an oral temperature above 102oF or as directed by your doctor. ??? You have blood in your stools (bright red or black, tarry stools). ??? You keep throwing up or can???t drink liquids. ??? Your see blood when you throw up. ??? Your stomach gets bloated or bigger. ??? You have new symptoms or anything [...] clearing your bowels. You will know your bowels have been cleaned out after you pass clear liquid. The cramps and gas should let up after you have emptied your bowels. You may want to wait until morning to take this type of medication so you aren???t up in the night. ??? Sometimes instead of cathartics, we recommend laxatives like milk of magnesia to move your bowels more slowly, or an enema to help the bowels to move. Read and follow the package directions, or follow your physician???s instructions. ??? Once you have become very constipated, it takes time for your bowels to return to normal and youneed to be very careful to prevent becoming constipated again. Take a laxative if you don???t move your bowels at least every two days. ??? Eat foods that have a lot of fiber. Good choices are fruits, vegetables, prune juice, apple juice and high fiber cereal. Limit dairy products such as milk and cheese, since these can make constipation worse. ??? Drink plenty of water and other fluids. ??? When you feel the need to go to the bathroom, go to the bathroom. Don???t hold it. ??? Miralax??, Metamucil??, Colace??, Senna or fiber supplements [...] call or return to the Emergency Department. documented in this encounter Medications at Time [...] documented as of this encounter ED Notes Krysta Rivers RN - 02/12/2014 1:32 PM CDT Was seen a few days ago and was told she had an ovarian cyst on the left ovary. She says the pain isgetting worse and the pain medication is not helping. Ruth Pacheco MD - 02/12/2014 1:30 PM CDT History Chief Complaint: Abdominal pain HPI Lizette Serrato is a 34 year old female with a history of esophageal reflux and left ovarian cyst who presents for evaluation of abdominal pain. The patient was evaluated here on 02/08 for left flank and left lower abdominal pain. CT scan without contrast was obtained, which showed a small left ovarian cyst as seen below. Laboratory workup was otherwise unremarkable. She was discharged with [place] forpain, Zofran for nausea, and instructed to follow up with her PMD. The patient states that she was not able to see her doctor at [facility] until 02/15/14. Meanwhile, she has experienced intermittent pain in the left lower quadrant which has worsened since her last visit. It is a sharp, stabbing pain that radiates to the left lower back, worse with walking. She has tried [place] twice without relief and took ibuprofen 800 mg this morning without significant improvement. The pain has been ongoing for approximately 9 days now. She reports experiencing chills without a measured fever. Her increased urinary frequency and dysuria noted on previous visit have resolved. She does note less frequent bowel movements, her last one occuring yesterday which was harder than normal. She currently denies nausea/vomiting, or any other complications or concerns. Review of Past Medical Records: 02/08/14, [facility] ED CT abdomen and pelvis w/o contrast: 1. [...] Light Yellow, few bacteria (A), otherwise WNL Allergies: No Known Allergies Medications: Ropinirole Bupropion Omeprazole Albuterol Hydrocodone-acetaminophen Ondansetron Sertraline Ferrous sulfate Past Medical History: Uncomplicated asthma Depression Restless leg syndrome Esophageal reflux Left ovarian cyst Past Surgical History: Laparoscopic tubal ligation, 09/22 Family History: Diabetes- Father Emphysema- Grandmother Social History: The patient presents alone to the ED. Marital status: Smoking Status: Currently smokes 1/4 pack/day Alcohol Use: None Review of Systems Constitutional: Positive for chills. Negative for fever. Gastrointestinal: Positive for abdominal pain (LLQ) and constipation. Negative for nausea, vomiting and blood in stool. Genitourinary: Negative for dysuria, urgency, frequency and vaginal discharge. Musculoskeletal: Positive for back pain. All other systems reviewed and are negative. Physical Exam First Vitals: Filed Vitals: 02/12/14 1330 BP: 120/64 Pulse: 86 Temp: 98.7 ??F (37.1 ??C) TempSrc: Oral Resp: 18 SpO2: 98% Physical Exam Nursing note and vitals reviewed. Constitutional: Pleasant and well groomed. HENT: Mouth/Throat: Oropharynx is without swelling or erythema. Oral mucosa moist. Eyes: Conjunctivae normal are normal. No scleral icterus. Neck: Neck supple. Cardiovascular: Normal rate, regular rhythm and intact distal pulses. Pulmonary/Chest: Effort normal and breath sounds normal. Abdominal: Soft. No distension. The patient point to the left lower quadrant as the location of pain. There is no apparent tenderness to deep palpation throughout the abdomen, nor guarding. No CVA tenderness. Musculoskeletal: No edema, No calf tenderness Pelvic: Normal external genitalia. Normal appearing cervix. No cervical motion tenderness. There is left adnexal tenderness, no apparent mass. Mild right adnexal tenderness, no apparent mass. No significant vaginal discharge. Neurological:alert. Coordination normal. Skin: Skin is warm and dry. Psychiatric: Normal mood and affect. Emergency Department Course Imaging: Radiographic findings were communicated with the patient who voiced understanding of the findings. Pelvic US complete: 1. Mild amount of complex fluid within the endometrial canal could be related to blood products. 2. Small amount of free fluid in the pelvis is nonspecific, and may be physiologic. Preliminary result per radiology. Laboratory: CBC: WBC 7.0, HGB 13.6, PLT 204. UA with Micro: Bacteria few, Mucous present, otherwise negative. Wet prep: Few WBC's seen, No clue cells, trichomonas, or yeast. Chlamydia trachomatis PCR: Pending Neisseria gonorrhea PCR: Pending HCG qualitative: Negative Interventions: NS bolus 1000 ml IV Dilaudid 0.5 g IV X 2 Zofran 4 mg IV Emergency Department Course: 1:30 PM: I reviewed patient's past medical records and examined the patient. IV inserted, blood drawn.The patient had a pelvic exam performed here in the emergency department, which she tolerated without difficulty. The patient provided a urine sample here in the emergency department. This was sent for laboratory testing, findings above. The patient was sent for a pelvic US complete while in the emergency department, results above. 3:43 PM: I reviewed the patient's records through Care Everywhere, as well as the [place] Prescription Monitoring Program. On 01/24/14, she signed a long- term controlled substance agreement for chronic chest, bilateral neck and back pain at [facility]. She has received 13 prescriptions for narcotics in the past 6 months including most recently 3 in about 3 weeks. I personally reviewed the laboratory results with the Patient and answered all related questions prior to discharge. She continues to have a benign abdominal exam. Findings and plan explained to the Patient. Patient discharged home with instructions regarding supportive care, medications, and reasons to return. The importance of close follow-up was reviewed. The patient was prescribed Miralax. Impression & Plan Medical Decision Making: This patient presents for continued and worsening left lower quadrant abdominal pain for which she was seen here 4 days ago. Differential diagnosis included but was not limited to diverticulitis, pyelonephritis, ovarian cyst, ovarian torsion, less likely PID. ED evaluation was as noted above. The patient's labs were repeated due to the progression of her symptoms and are essentially unremarkable. Theurine was negative. test was negative. Due to the comment of a small left ovarian cyst on the last visit and the progression of her symptoms, I did obtain another pelvic ultrasound, which at this point did not show an ovarian cyst. Therefore, the patient is not at significant risk for ovarian torsion. Due to her benign abdominal exam, normal white blood cell count and recent unremarkable CTscan I do not feel that the patient would benefit from an additional CT scan. At this point, she hasa benign abdominal exam. There was some concern on reviewing the patient on the prescription monitoring program. She received 3 prescriptions for hydrocodone within the past 3.5 weeks, and 13 prescriptions for narcotics in the past 6 months. She has a very benign abdominal exam and with reasonable clinical certainty I feel that she is safe for discharge home today without additional narcotic medications. We did discuss that constipation may be contributing to her pain. I provided her with constipation discharge instructions and a prescription for Miralax. Diagnosis: 1. (789.04) Abdominal pain, left lower quadrant 2. (564.00) Constipation Plan: 1. Standard EPPA discharge instructions for abdominal pain and constipation 2. Miralax. 3. Return with new or worse symptoms 4. Follow up with PMD in 2 days for repeat evaluation if pain persists. I, Danny Ashford, am serving as a scribe on 02/12/14 at 1:30 PM to personally document services performed by Dr. Pacheco based on my observations and the provider's statements to me. Ruth Pacheco MD 02/14/14 0954 [facility] documented in this encounter Plan of Treatment Not on filedocumented as of this encounter Procedures Procedure Name Priority Date/Time Associated Comments Diagnosis US PELVIC STAT 02/12/2014 3:25 PM Results f or this TRANSABDOMINAL CDT procedure are in the results section. HCG QUALITATIVE URINE STAT 02/12/2014 2:44 PM Results for this CDT procedure are i n the results section. ROUTINE UA WITH STAT 02/12/2014 2:44 PM Result s for this MICROSCOPIC CDT procedure are i n the results section. CBC WITH PLATELETS & STAT 02/12/2014 2:13 PM R esults for this DIFFERENTIAL CDT procedure are i n the results section. WET PREPARATION STAT 02/12/2014 2:00 PM Result s for this CDT procedure are i n the results section. NEISSERIA GONORRHOEAE STAT 02/12/2014 2:00 PM Abdominal Renny n, Results for this PCR CDT Left Lower procedure are i n Quadrant the results section. CHLAMYDIA TRACHOMATIS STAT 02/12/2014 2:00 PM Abdominal Renny n, Results for this PCR CDT Left Lower procedure are i n Quadrant the results section. documented in this encounter Results Pelvis US, complete (02/12/2014 3:25 PM CDT) Anatomical Region Laterality Modality Abdomen/Pelvis Ultrasound Specimen (Source) Anatomical Location Collection Method / Collectio n Time Received Time / Laterality Volume Impressions 02/12/2014 4:22 PM CDT IMPRESSION: 1. Mild amount of complex fluid within t he endometrial canal could be related to blood products. 2. Small amount of free fluid in the pel vis is nonspecific, and may be physiologic. ? ROBBIE ZALDIVAR MD Narrative 02/12/2014 4:22 PM CDT US PELVIS COMPLETE WITHOUT TRANSVAGINAL ?02/12/2014 3:25 PM HISTORY: Left lower abdominal pain. TECHNIQUE: ??Transvaginal images were pe rformed to better evaluate the patient's uterus, ovaries and endometria l stripe. COMPARISON: 02/08/2014. FINDINGS: ??The uterus is measured at 7. 9 x 4 x 5.5 cm. No fibroids are evident. Endometrial stripe measures 1 c m and is within normal limits for a premenopausal patient. Small amoun t of complex fluid within the endometrial canal is nonspecific, but co uld be related to the presence of blood products. The right ovary is un remarkable. The left ovary is unremarkable. No solid adnexal masses ar e identified. Small amount of anechoic free pelvic fluid is present. C olor Doppler blood flow is noted within the ovaries bilaterally. ? Procedure Note Robbie Zaldivar MD - 02/12/2014Forma tting of this note might be different from the original. US PELVIS COMPLETE WITHOUT TRANSVAGINAL 02/12/2014 3:25 PM HISTORY: Left lower abdominal pain. TECHNIQUE: Transvaginal images were perf ormed to better evaluate the patient's uterus, ovaries and endometria l stripe. COMPARISON: 02/08/2014. FINDINGS: The uterus is measured at 7.9 x 4 x 5.5 cm. No fibroids are evident. Endometrial stripe measures 1 c m and is within normal limits for a premenopausal patient. Small amoun t of complex fluid within the endometrial canal is nonspecific, but co uld be related to the presence of blood products. The right ovary is un remarkable. The left ovary is unremarkable. No solid adnexal masses ar e identified. Small amount of anechoic free pelvic fluid is present. C olor Doppler blood flow is noted within the ovaries bilaterally. IMPRESSION IMPRESSION: 1. Mild amount of complex fluid within t he endometrial canal could be related to blood products. 2. Small amount of free fluid in the pel vis is nonspecific, and may be physiologic. ROBBIE ZALDIVAR MD Ruth Pacheco MD [facility] [place]LES HCG qualitative urine (02/12/2014 2:44 PM CDT) P athologist Signature HCG Qual Urine Negative NEG [facility] Specimen Anatomical Collection Method Collection Time Receive d Time (Source) Location / / Volume Laterality Urine specimen URINE SPECIMEN 02/12/2014 2:44 PM 02/12 2:51 (specimen) OBTAINED BY CLEAN CDT PM CDT CATCH PROCEDURE / Unknown Ruth Pacheco MD LAB - URINE ORDERABLES Performing Organization Address City/State/ZIP Code Phon e Number M [facility] [address] [place], [place] [address] [facility] (ABNORMAL) UA with Microscopic (02/12/2014 2:44 PM CDT) [facility] gist Method Time Signature Color Urine Straw [facility] Appearance Urine Clear [facility] Glucose Urine Negative NEG mg/dL [facility] Bilirubin Urine Negative NEG [facility] Ketones Urine Negative NEG mg/dL [facility] Specific [place] 1.005 1.003 - [place] Urine 1.035 [facility] Blood Urine Negative NEG [facility] pH Urine 6.5 5.0 - 7.0 [place] pH [facility] Protein Albumin Negative NEG mg/dL [place] Urine [facility] Urobilinogen Normal 0.0 - 2.0 [place] mg/dL mg/dL [facility] Nitrite Urine Negative NEG [facility] Leukocyte Negative NEG [place] Esterase Urine [facility] Source Midstream [place] Urine [facility] WBC Urine 1 0 - 2 [place] /[facility] RBC Urine <1 0 - 2 [facility] Bacteria Urine Few (A) NEG /HPF [facility] Squamous <1 0 - 1 [place] Epithelial /HPF /HPF [facility] Mucous Urine Present (A) NEG /LPF [facility] Specimen Anatomical Collection Method Collection Time Receive d Time (Source) Location / / Volume Laterality Urine specimen URINE SPECIMEN 02/12/2014 2:44 PM 02/12 2:51 (specimen) OBTAINED BY CLEAN CDT PM CDT CATCH PROCEDURE / Unknown Ruth Pacheco MD LAB - URINE ORDERABLES Performing Organization Address City/State/ZIP Code Phon e Number M [place] [address] [place] [address] [facility] CBC with platelets differential (02/12/2014 2:13 PM CDT) [facility] Method Time Signature WBC 7.0 4.0 - [place] 11.0 [facility] 10e9/L [facility] RBC Count 4.60 3.8 - 5.2 [place] 10e12/L [facility] Hemoglobin 13.6 11.7 - [place] 15.7 g/dL [facility] Hematocrit 40.4 35.0 - [facility] 47.0 % [facility] MCV 88 78 - 100 [place] fl [facility] MCH 29.6 26.5 - [facility] 33.0 pg [facility] MCHC 33.7 31.5 - [place] 36.5 g/dL [facility] RDW 13.0 10.0 - [place] 15.0 % [facility] Platelet Count 204 150 - 450 [place] 10e9/L [facility] Diff Method Automated [facility] % Neutrophils 71.0 % [facility] % Lymphocytes 22.0 % [facility] % Monocytes 6.1 % [facility] % Eosinophils 0.7 % [facility] % Basophils 0.1 % [facility] % Immature 0.1 % [place] Granulocytes [facility] Absolute 5.0 1.6 - 8.3 [place] Neutrophil 10e9/L [facility] Absolute 1.6 0.8 - 5.3 [place] Lymphocytes 10e9L [facility] Absolute 0.4 0.0 - 1.3 [place] Monocytes 10e9/L [facility] Absolute 0.1 0.0 - 0.7 [place] Eosinophils 10eL [facility] Absolute 0.0 0.0 - 0.2 [place] Basophils [address] LAB Abs Immature 0.0 0 - 0.4 [place] Granulocytes [address] [place] [address] LAB Specimen Anatomical Collection Method Collection Time Receive d Time (Source) Location / / Volume Laterality Blood specimen 02/12/2014 2:13 PM 014 2:22 (specimen) CDT PM CDT Ruth Pacheco MD LAB - BLOOD ORDERABLES Performing Organization Address City/State/ZIP Code Phon e Number [address] [address] [facility] Neisseria gonorrhoea PCR (02/12/2014 2:00 PM CDT) Component Value Ref Test Analysis Performed At [facility] Range Method Time Signature Specimen Pelvic [facility] N Gonorrhea Negative NEG [...] Location / / Volume Laterality Vaginal swab 02/12/2014 2:00 PM 4 2:07 (specimen) CDT PM CDT Ruth Pacheco MD LAB - MICRO GENERAL ORDERAB LES Performing Organization Address City/[facility]/ZIP Code Phon e Number [facility] [address] [place], [place] [id number] [place] [address] LAB [facility] MICROBIOLOGY Chlamydia trachomatis PCR (02/12/2014 2:00 PM CDT) Component Value Ref Test Analysis Performed At [facility] Leadjini Range Method Time Signature Specimen Pelvic [facility] Chlamydia Negative NEG [facility] Trachomatis Negative for C. trachomatis rRNA by phototypesetting equipment monitor mediated amplification. MICROBIOLOGY PCR A negative result by transc ription mediated amplification does not preclude the presence of C. trachomatis infection because re sults are dependent on proper and adequate collection, absence of inhibitors, and suffici ent rRNA to be detected. Specimen Anatomical Collection Method Collection Time Receive d Time (Source) Location / / Volume Laterality Vaginal swab 02/12/2014 2:00 PM 4 2:07 (specimen) CDT PM CDT Ruth Pacheco MD LAB - MICRO GENERAL ORDERAB LES Performing Organization Address [facility]/ZIP Code Phon e Number [facility] [address] [place] [address] [facility] MICROBIOLOGY Wet prep (02/12/2014 2:00 PM CDT) [facility] Method Time Signature Specimen Pelvic [facility] Wet Prep No clue cells seen [place] No Trichomonas seen [place] No yeast seen HOSPITAL LAB Few WBC'S seen Micro Report FINAL [place] Status 02/12/2014 [facility] Specimen Anatomical Collection Method Collection Time Receive d Time (Source) Location / / Volume Laterality Vaginal swab 02/12/2014 2:00 PM 4 2:06 (specimen) CDT PM CDT Ruth Pacheco MD LAB - MICRO GENERAL ORDERAB LES Performing Organization Address City/State/ZIP Code Phon e Number [place] [address], [place] [address] [facility] documented in this encounter Visit Diagnoses Diagnosis Abdominal pain, left lower quadrant - Pr imary Constipation Unspecified constipation documented in this encounter Administered Medications Inactive Administered Medications - up to 3 most recent administrations Medication Order MAR Action Action Date Dose Rate Site HYDROmorphone (PF) (DILAUDID) Given 02/12/2014 2:11 PM CDT 0.5 m g injection 0.5 mg 0.5 mg, Intravenous, ONCE PRN, moderate to severe pain, Starting on 02/12/14 at 1400, For 1 dose HYDROmorphone (PF) (DILAUDID) injection 0.5 Given 02/12/2014 2:46 PM CDT 0.5 mg mg 0.5 mg, Intravenous, ONCE, On 02/12/14 at 1445, For 1 dose ondansetron (ZOFRAN) injection 4 mg Given 02/12/2014 2:17 PM CDT 4 mg 4 mg, Intravenous, ONCE, Administer over 2-5 Minutes, On 02/12/14 at 1413, For 1 dose sodium chloride 0.9 % BOLUS New Bag 02/12/2014 2:11 PM CDT 1,000 m Ls 1000 mL/hr 1,000 mL Intravenous, 1,000 mL, ONCE, at 1,000 mL/hr, Administer over 1 Hours, On 02/12/14 at 1401, For 1 dose documented in this encounter Active and Recently Administered Medications Times are shown in CDT. Scheduled Medication Order 02/10/2014 02/11/2014 02/12/2014 HYDROmorphone (PF) (DILAUDID) injection 0.5 mg (COMPLETED) 1446 (Given - Provider: Krysta Rivers RN) 0.5 mg, Intravenous, ONCE, 1 dose, 02/12/14 at 1445 ondansetron (ZOFRAN) injection 4 mg (COMPLETED) 1417 (Given - Provider: Krysta Rivers, ANGE) 4 mg, Intravenous, ONCE, for 2 Minutes, 02/12/14 at 1413, For 1 dose sodium chloride 0.9 % BOLUS 1,000 mL (COMPLETED) 1411 (New Bag - Provider: Krysta Rivers RN)1639 (Stopped - Provider: Krysta Rivers, RN) Intravenous, 1,000 mL, ONCE, at 1,000 mL /hr, Administer over 1 Hours, On 02/12/14 at 1401, For 1 dose PRN Medication Order 02/10/2014 02/11/2014 02/12/2014 HYDROmorphone (PF) (DILAUDID) injection 0.5 mg (COMPLETED) 1411 (Given - Provider: Krysta R Tita, RN) 0.5 mg, Intravenous, ONCE PRN, 1 dose, S tarting 02/12/14 at 1400, Until Discontinued, moderate to severe pain documented in this encounter Care Teams Overnight Babysitter Relationship Specialty Start Date End Date Jamin Silva MD PCP - General Family Medicine - Sports 06/01/13 Medicine documented as of this encounter
--- OUTSIDE RECORDS SUMMARY | 2021-11-21 01:57 | XMS_ITS | Encounter Summary ---
:1980 Author Organization [facility] Address [address] [place] [id number] Care Team Providers Name Role Phone Jamin Silva MD Primary Care Provider Reason for Visit Reason Comments Abdominal Pain LLQ pain since january Encounter Details Date Type Department Care Team Description [facility]2014 [facility], left [facility] ralph Johnson MD lower quadrant [address] [facility] (Primary Dx) [facility] [phone] [id number] [phone] [address] [place], [place] [address] (Wo rk) Social History Tobacco Use Types Packs/Day Years Used Date Current Every Day Smoker 0.25 Alcohol Use Standard Drinks/Week Comments No 0 (1 standard drink = 0.6 oz pure alcoho l) Sex Assigned at Date Recorded Not on file documented as of this encounter Last Filed Vital Signs Vital Sign Reading Time Taken Comments Blood Pressure 102/71 02/26/2014 4:00 PM LAPEL BASTER Pulse 77 02/26/2014 2:41 PM LAPEL BASTER Temperature 36.5 ??C (97.7 ??F) 02/26/2014 2:41 PM LAPEL BASTER Respiratory Rate 16 02/26/2014 2:41 PM LAPEL BASTER Oxygen Saturation 96% 02/26/2014 4:05 PM LAPEL BASTER Inhaled Oxygen Concentration - - Weight 76.7 kg (169 lb) 02/26/2014 2:41 PM LAPEL BASTER Height - - Body Mass Index - - documented in this encounter Discharge Instructions Discharge InstructionsRobbie Nelson MD - 02/26/2014 4:38 PM LAPEL BASTER Discharge Instructions Abdominal Pain Abdominal pain can [...] new symptoms or anything that worries you. ??? MORE INFORMATION: Appendicitis: A possible cause of [...] directed by your doctor today. Before using [id number] medications, ask your doctor and make sure [...] contain Tylenol?? (acetaminophen), including Vicodin??, Tylenol #3??, [place]??, Lortab??, and Percocet??. You should not take [...] if there is anything that worries you. L BASTER AttachmentsThe following attachments cannot be sent through Care Everywhere. PELVIC PAIN, UNKNOWN CAUSE (JAPANESE)documented in this encounter Medications at Time of [...] documented as of this encounter ED Notes Robbie Nelson MD - 02/26/2014 2:41 PM CST History Chief Complaint: Abdominal Pain HPI: The history is provided by the patient. Lizette Serrato is a 34 year old female who presents with abdominal pain. On chart review, the patient has had 4 ED visits for left lower quadrant abdominal pain in the past 3 weeks during which time she had a CT of the pelvis and abdomen which revealed a left ovarian cyst as well as 3 pelvic ultrasounds negative for ovarian torsion. The patient states that her pain resolved since her last ER visit and after seeing her primary provider at [facility] in [place]. She reports, however, that her aching left lower quadrant abdominal pain and nausea returned and worsened following her menstrual period on 02/22, and it is now worse than her initial pain. She has attempted to manage her current symptoms with tramadol and ibuprofen but with no results. Here in the ER today, she rates her pain as 9/10 in severity. She denies any fevers, vomiting, diarrhea, or constipation. Allergies: NKDA Medications: Miralax Ropinirole Wellbutrin Omeprazole Albuterol Sertraline Iron supplement Tramadol Ibuprofen Past Medical History: Asthma Depression Restless leg syndrome Past Surgical History: Laparoscopic tubal ligation Family History: No pertinent family history Social History: Marital Status: [4] Current every day smoker No alcohol use Patient brought her children with her to the ER Review of Systems Constitutional: Negative for fever. Gastrointestinal: Positive for nausea and abdominal pain. Negative for vomiting, diarrhea and constipation. All other systems reviewed and are negative. Physical Exam First Vitals: BP 129/90 Pulse 77 Temp(Src) 97.7 ??F (36.5 ??C) (Oral) Resp 16 SpO2 99% LMP 02/22/2014 Physical Exam Constitutional: Appears well-developed and well-nourished. Alert. Conversant, but uncomfortable. Nontoxic. HENT: Head: Atraumatic. Nose: Nose normal. Mouth/Throat: Oropharynx is clear and moist. Eyes: Conjunctivae normal. EOM are normal. Pupils are equal, round, and reactive to light. No scleral icterus. Neck: Normal range of motion. Neck supple. No tracheal deviation present. Cardiovascular: Normal rate, regular rhythm. Exam reveals no gallop and no friction rub. No murmur heard. Symmetric radial artery pulses Pulmonary/Chest: Effort normal. No stridor. No respiratory distress. No wheezes. No rales. No rhonchi . No tenderness. Abdominal: Soft. Bowel sounds are normal. No distension. No mass. There is low left lower quadrant/ left pelvic tenderness. No mass appreciated. No CVA tenderness. There is no rebound and no guarding. Pelvic: performed during recent visit. Deferred during this evaluation. Musculoskeletal: Normal range of motion. No edema. No tenderness. No deformity Lymph: No cervical adenopathy. Neurological: Alert and oriented to person, place, and time. Normal strength. CN II-VII intact. No sensory deficit. GCS eye subscore is 4. GCS verbal subscore is 5. GCS motor subscore is 6. Normal coordination Skin: Skin is warm and dry. No rash noted. No pallor. Normal capillary refill. Psychiatric: normal mood and affect. Emergency Department Course Imaging: Radiographic findings were communicated with the patient who voiced understanding of the findings. US Pelvic Complete with Transvaginal and Abdomen/Pelvis Impression: 1. No evidence for ovarian torsion. Normal blood flow is seen in both ovaries. 2. 2 cm cyst or follicle in the left ovary. 3. No free fluid or adnexal masses. Preliminary reading per radiology. Laboratory: CBC: wbc 7.3 (neut 72.1%, lymph 20.4%, mono 5.9%, eos 1.2%, baso 0.3%, imm gran 0.1%), hgb 13.4, [id number] CMP: creat 0.82, o/w wnl Lipase: 114 Lactic acid: 0.6 UA: light yellow and clear, wbc <1, rbc <1, few bacteria, mucous present HCG qual: negative Interventions: 1518 - Saline 1,000 mL IV 1518 - Zofran 4 mg IV 1518 - Toradol 30 mg IV 1655 - Percocet 5-325 mg per tablet x 2 Emergency Department Course: I examined the patient. Plan of care discussed. The patient agrees with this plan. IV inserted and blood drawn. 1556 - US pelvic obtained. Results as above. Findings discussed with the patient. I personally reviewed the laboratory results with the patient and answered all related questions prior to discharge. I discussed the laboratory and radiology results with the patient, and she understands. The patient felt improved after the above interventions. She will be discharged home to follow up with [facility] perdischarge instructions. Indications for return to the ED were discussed and the patient understands.All questions were answered prior to discharge. Impression & Plan Medical Decision Making: Lizette Serrato is a 34 year old female who came to the ER today for the 4th return visit over the past two and a half weeks for left lower quadrant abdominal/pelvic pain. She previously had been evaluated on February 08, February 12, and February 18. Please see EPIC for details of that. She has alr rosalino had a negative CT scan and pelvic ultrasounds that showed no evidence for torsion. She did havea 2 cm left ovarian cyst during her first visit that was found to be involuting during her most recent visit. Evaluation today shows left lower quadrant tenderness very low in the left lower quadrant but no peritoneal sings. Laboratory evaluation is again reassuring. Urinalysis is negative, and test is negative. I did repeat a pelvic ultrasound, and it does show an apparent recurrence of a 2 cm left ovarian cyst, but again, no evidence for torsion. She has already had a pelvic exam that was negative for gonorrhea and chlamydia and denies any fever or vaginal discharge to raise concern forPID. I did not feel that repeat CT scan would be warranted, and at this point there are no peritoneal signs that would indicate need for emergent surgery. In terms of pain control, she was put on the chronic pain policy by Dr. Lu during her most recent visit, and some concern was also raised by Dr. Pacheco during her most recent visit. For her part, the patient does not want any opiate prescriptions or opiate painkillers here in the ER. She just wants an answer for why she is having her pain. We gave her a dose of Toradol, which was not successful in treating her pain. She was feeling more pain after the endovaginal ultrasound, so I did give her a Percocet here, which she was agreeable to, but she does not want prescriptions. I discussed with her that the exact cause of her pain is not known at this time and that follow up with gynecology would be the next logical step. She agrees. 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 She will follow up. Diagnosis: ICD-9-CM 1. Abdominal pain, left lower quadrant 789.04 Robbie Miranda, am serving as a scribe at 2:52 PM on 02/26/2014 to document services personally performed by Robbie Nelson MD, based on my observations and the provider's statements to me. Robbie Nelson MD 02/28/14 1030 L BASTER Abril Stack RN - 02/26/2014 2:40 PM CST Nausea. States has been seen for same in clinic and ED L BASTER documented in this encounter Plan of Treatment Not on filedocumented as of this encounter Procedures Procedure Name Priority Date/Time Associated Comments Diagnosis US PELVIS COMPLETE W STAT 02/26/2014 3:53 PM R esults for this TRANSVAGINAL AND LAPEL BASTER procedure a re in DOPPLER LIMITED the results section. CBC WITH PLATELETS & STAT 02/26/2014 3:24 PM R esults for this DIFFERENTIAL LAPEL BASTER procedure are i n the results section. LIPASE STAT 02/26/2014 3:24 PM Results f or this LAPEL BASTER procedure are i n the results section. LACTIC ACID STAT 02/26/2014 3:24 PM Results f or this [facility]EL BASTER procedure are i n the results section. COMPREHENSIVE STAT 02/26/2014 3:24 PM Results for this METABOLIC PANEL LAPEL BASTER procedure ar e in the results section. HCG QUALITATIVE URINE STAT 02/26/2014 3:05 PM Results for this LAPEL BASTER procedure are i n the results section. ROUTINE UA WITH STAT 02/26/2014 3:05 PM Result s for this MICROSCOPIC LAPEL BASTER procedure are i n the results section. documented in this encounter Results US Pelvic Complete w Transvaginal & Abd/Pel Duplex Limited (02/26/2014 3:53 PM LAPEL BASTER) Anatomical Region Laterality Modality Abdomen/Pelvis Ultrasound Specimen (Source) Anatomical Location Collection Method / Collectio n Time Received Time / Laterality Volume Impressions 02/26/2014 3:56 PM LAPEL BASTER IMPRESSION: 1. No evidence for ovarian torsion. Norm al blood flow is seen in both ovaries. 2. 2 cm cyst or follicle in the left ova ry. 3. No free fluid or adnexal mass. BETSY MILLS MD Narrative 02/26/2014 3:56 PM LAPEL BASTER US PELVIS COMPLETE W TRANSVAGINAL AND DOPPLER LIMITED ??02/26/2014 3:53 PM HISTORY: ??Pelvic pain, COMPARISON: Exam dated 02/18/2014. TECHNIQUE: Transabdominal and transvagin al imaging was performed. Transvaginal exam performed to better ev aluate the uterus, ovaries and adnexa. FINDINGS: The endometrium measures 7.2 m m in thickness. There is an trace amount of fluid in the endometrial cavity. The uterus measures 9.5 cm in length. No fibroids. The right ovary is normal in size. It has normal blood flow with normal Dopple r waveforms. The left ovary is normal in size. There is a 2 x 1.9 x 1.6 cm cyst in the left ovary. It has normal blood flow with normal Dopple r waveforms. No adnexal mass. No free fluid. Procedure Note Aryan Mills MD - 02/26/2014For matting of this note might be different from the original. US PELVIS COMPLETE W TRANSVAGINAL AND DO PPLER LIMITED 02/26/2014 3:53 PM HISTORY: Pelvic pain, COMPARISON: Exam dated 02/18/2014. TECHNIQUE: Transabdominal and transvagin al imaging was performed. Transvaginal exam performed to better ev aluate the uterus, ovaries and adnexa. FINDINGS: The endometrium measures 7.2 m m in thickness. There is an trace amount of fluid in the endometrial cavity. The uterus measures 9.5 cm in length. No fibroids. The right ovary is normal in size. It has normal blood flow with normal Dopple r waveforms. The left ovary is normal in size. There is a 2 x 1.9 x 1.6 cm cyst in the left ovary. It has normal blood flow with normal Dopple r waveforms. No adnexal mass. No free fluid. IMPRESSION IMPRESSION: 1. No evidence for ovarian torsion. Norm al blood flow is seen in both ovaries. 2. 2 cm cyst or follicle in the left ova ry. 3. No free fluid or adnexal mass. BETSY MILLS MD Robbie Nelson MD [facility] US ORDERABLES Lipase (02/26/2014 3:24 PM LAPEL BASTER) athologist Signature Lipase 114 73 - 393 [facility] U/L [facility] LAB Comment: Effective 11/10/2013, the reference range for this assay has changed to reflect new instrumentation/methodology. Specimen Anatomical Collection Method Collection Time Receive d Time (Source) Location / / Volume Laterality Blood specimen 02/26/2014 3:24 PM 014 3:40 (specimen) LAPEL BASTER PM LAPEL BASTER Robbie Nelson MD LAB - BLOOD ORDERABLES Performing Organization Address City/[facility] Phon javed Flowers [facility] [address], [place] [address] [phone] [place] [address] LAB Lactic acid (02/26/2014 3:24 PM LAPEL BASTER) athologist Signature Lactic Acid 0.6 0.4 - 2.0 [place] mmol/[facility] LAB Specimen Anatomical Collection Method Collection Time Receive d Time (Source) Location / / Volume Laterality Blood specimen 02/26/2014 3:24 PM 014 3:40 (specimen) LAPEL BASTER PM LAPEL BASTER Robbie Nelson MD LAB - BLOOD ORDERABLES Performing Organization Address [facility]/[place] [address], [place] [address] [phone] [place] [address] LAB Comprehensive metabolic panel (02/26/2014 3:24 PM LAPEL BASTER) athologist Signature Sodium 136 133 - 144 [place] mmol/L [facility] LAB Potassium 3.9 3.4 - 5.3 [place] mmol/L [facility] Chloride 106 94 - 109 [place] mmol/L [facility] Carbon Dioxide 26 20 - 32 [place] mmol/L [facility] Anion Gap 4 3 - 14 [place] mmol/L [facility] Glucose 89 70 - 99 [place] mg/dL [facility] Comment: Effective 11/10/2013, the reference range for this assay has changed to reflect new instrumentation/methodology. Urea Nitrogen 13 7 - 30 mg/dL [facility] LAB Comment: Effective 11/10/2013, the reference range for this assay has changed to reflect new instrumentation/methodology. Creatinine 0.82 0.52 - 1.04 mg/dL [facility] LAB GFR Estimate 81 >60 mL/min/1.7m2 [facility] LAB Comment: Non GFR Calc GFR Estimate If Black >90 >60 mL/min/1.7m2 F [facility] GFR Calc [facility] LAB Calcium 8.6 8.5 - 10.1 mg/dL [facility] Comment: Effective 11/10/2013, the reference range for this assay has changed to reflect new instrumentation/methodology. Bilirubin Total 0.2 0.2 - 1.3 mg/dL [facility] LAB Albumin 3.8 3.4 - 5.0 g/dL [facility] LAB Protein Total 7.1 6.8 - 8.8 g/dL [facility] LAB Alkaline Phosphatase 74 40 - 150 U/L [facility] LAB ALT 27 0 - 50 U/L [facility] AST 17 0 - 45 U/L [facility] LAB Specimen Anatomical Collection Method Collection Time Receive d Time (Source) Location / / Volume Laterality Blood specimen 02/26/2014 3:24 PM 014 3:40 (specimen) LAPEL BASTER PM LAPEL BASTER Robbie Nelson MD LAB - BLOOD ORDERABLES Performing Organization Address City/State/ZIP Code Phon e Number M [facility] [address], [place] [address] [facility] LAB CBC with platelets differential (02/26/2014 3:24 PM LAPEL BASTER) [facility] gist Method Time Signature WBC 7.3 4.0 - [place] 11.0 [facility] 10e9/L [facility] LAB RBC Count 4.57 3.8 - 5.2 [place] 10e12/L [facility] Hemoglobin 13.4 11.7 - [place] 15.7 g/dL [facility] LAB Hematocrit 40.1 35.0 - [place] 47.0 % [facility] MCV 88 78 - 100 [facility] LAB MCH 29.3 26.5 - [facility] 33.0 pg [facility] MCHC 33.4 31.5 - [place] 36.5 g/dL [facility] RDW 13.1 10.0 - [place] 15.0 % [facility] Platelet Count 228 150 - 450 [place] 10e9/L [facility] Diff Method Automated [facility] LAB % Neutrophils 72.1 % [facility] % Lymphocytes 20.4 % [facility] % Monocytes 5.9 % [facility] % Eosinophils 1.2 % [facility] % Basophils 0.3 % [facility] % Immature 0.1 % [place] Granulocytes [facility] Absolute 5.3 1.6 - 8.3 [place] Neutrophil 10e9/L [facility] Absolute 1.5 0.8 - 5.3 [place] Lymphocytes 10e9/L [facility] Absolute 0.4 0.0 - 1.3 [place] Monocytes 10e9/L [facility] Absolute 0.1 0.0 - 0.7 [place] Eosinophils 10e9/L [facility] Absolute 0.0 0.0 - 0.2 [place] Basophils 10e9/L [facility] Abs Immature 0.0 0 - 0.4 [place] Granulocytes [address] LAB Specimen Anatomical Collection Method Collection Time Receive d Time (Source) Location / / Volume Laterality Blood specimen 02/26/2014 3:24 PM 014 3:40 (specimen) LAPEL BASTER PM LAPEL BASTER Robbie Nelson MD LAB - BLOOD ORDERABLES Performing Organization Address City/State/ZIP [facility] Phon e Number M [facility] [address] [place] [id number] [facility] LAB HCG qualitative urine (02/26/2014 3:05 PM LAPEL BASTER) P athologist Signature HCG Qual Urine Negative NEG [facility] LAB Specimen Anatomical Collection Method Collection Time Receive d Time (Source) Location / / Volume Laterality Urine specimen URINE SPECIMEN 02/26/2014 3:05 PM 02/26 3:10 (specimen) OBTAINED BY CLEAN LAPEL BASTER PM LAPEL BASTER CATCH PROCEDURE / Unknown Robbie Nelson MD LAB - URINE ORDERABLES Performing Organization Address City/[facility] Phon e Number M [facility] [address], [place] [address] [facility] LAB (ABNORMAL) UA with Microscopic (02/26/2014 3:05 PM LAPEL BASTER) Patholo gist Method Time Signature Color Urine Light Yellow [facility] Appearance Urine Clear [facility] Glucose Urine Negative NEG mg/dL [facility] Bilirubin Urine Negative NEG [facility] Ketones Urine Negative NEG mg/dL [facility] Specific [place] 1.007 1.003 - [place] Urine 1.035 [facility] Blood Urine Negative NEG [facility] pH Urine 5.5 5.0 - 7.0 [place] pH [facility] Protein Albumin Negative NEG mg/dL [place] Urine [facility] Urobilinogen Normal 0.0 - 2.0 [place] mg/dL mg/dL [facility] Nitrite Urine Negative NEG [facility] Leukocyte Negative NEG [place] Esterase Urine [facility] Source Midstream [place] Urine [facility] WBC Urine <1 0 - 2 [facility] RBC Urine <1 0 - 2 [facility] Bacteria Urine Few (A) NEG /HPF [facility] Squamous 1 0 - 1 [place] Epithelial /HPF /HPF [facility] Mucous Urine Present (A) NEG /LPF [facility] Specimen Anatomical Collection Method Collection Time Receive d Time (Source) Location / / Volume Laterality Urine specimen URINE SPECIMEN 02/26/2014 3:05 PM 02/26 3:10 (specimen) OBTAINED BY CLEAN LAPEL BASTER PM LAPEL BASTER CATCH PROCEDURE / Unknown Robbie Nelson MD LAB - URINE ORDERABLES Performing Organization Address City/State/ZIP Code Phon e Number M [facility] [address] [place] [address] [facility] documented in this encounter Visit Diagnoses Diagnosis Abdominal pain, left lower quadrant - Pr imary documented in this encounter Administered Medications Inactive Administered Medications - up to 3 most recent administrations Medication Order MAR Action Action Date Dose Rate Site ketorolac (TORADOL) injection 30 mg Given 02/26/2014 3:18 PM LAPEL BASTER 30 mg 30 mg, Intravenous, ONCE, On 02/26/14 at 1507, For 1 dose ondansetron (ZOFRAN) injection 4 mg Given 02/26/2014 3:18 PM LAPEL BASTER 4 mg 4 mg, Intravenous, EVERY 30 MIN PRN, nausea, vomiting, Administer over 2-5 Minutes, Starting on 02/26/14 at 1506, For 3 doses, May repeat in 30 minutes as needed, up to 3 doses. oxyCODONE-acetaminophen (PERCOCET) 5-325 Given 02/26/2014 4: 55 PM LAPEL BASTER 2 tablets MG per tablet 2 tablet 2 tablet, Oral, ONCE, On 02/26/14 at 1638, For 1 dose, Maximum acetaminophen dose from all sources= 75 mg/kg/day not to exceed 4 grams sodium chloride 0.9 % BOLUS New Bag 02/26/2014 3:18 PM LAPEL BASTER 1,000 m Ls 1000 mL/hr 1,000 mL Intravenous, 1,000 mL, ONCE, at 1,000 mL/hr, Administer over 1 Hours, On 02/26/14 at 1507, For 1 dose documented in this encounter Active and Recently Administered Medications Times are shown in LAPEL BASTER. Scheduled Medication Order 02/24/2014 02/25/2014 02/26/2014 ketorolac (TORADOL) injection 30 mg (COMPLETED) 1518 (Given - Provider: Brittney Feldman RN) 30 mg, Intravenous, ONCE, 02/26/14 at 1507, For 1 dose oxyCODONE-acetaminophen (PERCOCET) 5-325 MG per tablet 2 tablet (COMPLETED) 1655 (Given - Provider: Brittney Feldman, ANGE) 2 tablet, Oral, ONCE, 02/26/14 at 16 38, For 1 dose, Maximum acetaminophen dose from all sources= 75 mg/kg/day not to exceed 4 grams sodium chloride 0.9 % BOLUS 1,000 mL (COMPLETED) 1518 (New Bag - Provider: Brittney Feldman RN)1650 (Stopped - Provider: Susan Izaguirre RN) Intravenous, 1,000 mL, ONCE, at 1,000 mL /hr, Administer over 1 Hours, On 02/26/14 at 1507, For 1 dose PRN Medication Order 02/24/2014 02/25/2014 02/26/2014 ondansetron (ZOFRAN) injection 4 mg (CANCELED) 1518 (Given - Provider: Brittney Feldman RN) 4 mg, Intravenous, EVERY 30 MIN PRN, amador sea, vomiting, for 2 Minutes, Starting 02/26/14 at 1506, For 3 doses, May repeat in 30 minutes as needed, up to 3 doses. documented in this encounter Care Teams Cma Relationship Specialty Start Date End Date Jamin Silva MD PCP - General Family Medicine - Sports 06/01/13 Medicine documented as of this encounter
== END 2021-11-14 14:38 | disposition home or self-care (01) ==
PROVIDERS: Emergency Provider Student in an Organized Health Care Education/Training Program; PCP Family Medicine
DX: R07.89 Other chest pain (principal); M54.2 Cervicalgia; R42 Dizziness and giddiness
CPT/HCPCS: 36415; 71260; 80048; 84484; 85025; 85379; 93005; 96374; 96375; 99283; 99285; J1885; J2270; J7030; Q9967

== ENCOUNTER 2022-01-21 13:43 | Emergency (ER) | payer BC, SELFPAY ==
[2022-01-21 14:22] VITALS: BP 147/87; PULSE 93; RESP 18; TEMP 36.6; O2SAT 98; BMI 27.4
--- NOTE | 2022-01-21 14:24 | CRLHL7_ITS ---
For Patients: As a result of the Century Cures Act, medical imaging exams and procedure reports are released immediately into your electronic medical record. You may view this report before your referring provider. If you have questions, please contact your health care provider. Indication: Trauma, fall with left hip pain. Technique: Pelvis and left hip 4 views. Comparison: September 12, 2021. Findings: Bones: Alignment is normal. No fractures or bone lesions. Joint spaces: Unremarkable. Soft tissues: Unremarkable. Impression: No sign of acute injury. Dictated by Mitchell Torrez MD @ 01/21/2022 3:28:25 PM (Electronically Signed)
--- NOTE | 2022-01-21 15:20 | ED_ITS ---
HPI - General Adult General Chief complaint: Fall/Minor Trauma <Rajni Nguyen MD - Last Filed: 01/21/22 15:40> Stated complaint: Fell off ladder 4 feet, landed on hip <Rajni Nguyen MD - Last Filed: 01/21/22 15:40> Time Seen by Provider: 01/21/22 15:00 <Rajni Nguyen MD - Last Filed: 01/21/22 15:40> Source: patient <Rajni Nguyen MD - Last Filed: 01/21/22 15:40> Mode of arrival: ambulatory <Rajni Nguyen MD - Last Filed: 01/21/22 15:40> Limitations: no limitations <Rajni Nguyen MD - Last Filed: 01/21/22 15:40> History of Present Illness HPI narrative: 42-year-old female coming in today after falling off of a ladder. Patient states she is approximately 4 ft in the air and she fell onto her side injuring her left hip. She states that she has left hip pain that radiates down her leg. She did not hit her head or lose consciousness. She was able to get up after she fell however she tells me now that she can not move her leg because it is so painful. She denies abdominal pain or back pain. She is not on any blood thinners. <Rajni Nguyen MD - Last Filed: 01/21/22 15:40> Related Data Home medications: Home Medications Medication Instructions Recorded Confirmed albuterol sulfate 90 mcg/actuation 2 puff inhalation Q4-6H PRN 10/12/21 11/14/21 aerosol inhaler bupropion HCl 300 mg 24 hr tablet, 300 mg PO DAILY 10/12/21 11/14/21 extended release fluticasone furoate 200 See Rx Instructions inhalation 10/12/21 11/14/21 mcg-vilanterol 25 mcg/dose DAILY inhalation powder Previous Rx's Medication Instructions Recorded diclofenac sodium 75 mg 75 mg PO BID #60 tabs 10/12/21 tablet,delayed release sertraline 100 mg tablet 100 mg PO DAILY #90 tabs 12/19/21 omeprazole 20 mg capsule,delayed 20 mg PO QDAY #90 caps 01/18/22 release trazodone 100 mg tablet 250 mg PO QHS #225 tabs 01/18/22 <Rajni Nguyen MD - Last Filed: 01/21/22 15:40> Allergies/adverse reactions: Allergies Allergy/AdvReac Type Severity Reaction Status Date / Time hydrocodone Allergy Intermediate itchy Verified 11/14/21 11:20 <Rajni Nguyen MD - Last Filed: 01/21/22 15:40> Review of Systems Status of ROS: Reports: 10 or more systems reviewed and unremarkable except as noted in History and below <Rajni Nguyen MD - Last Filed: 01/21/22 15:40> [facility] Medical History: Medical History Chronic abdominal pain Chronic interstitial cystitis Cyst of left ovary Cyst of right ovary Essential tremor (08/16/07) Gastroesophageal reflux disease (06/16/08) Generalized anxiety disorder History of abnormal cervical Papanicolaou smear Insomnia (01/07/14) Menorrhagia Moderate episode of recurrent major depressive disorder (02/23/07) Restless legs syndrome (03/25/12) <Rajni Nguyen MD - Last Filed: 01/21/22 15:40> Surgical History: Surgical History History of laparoscopy History of tubal ligation Status post laparoscopic hysterectomy <Rajni Nguyen MD - Last Filed: 01/21/22 15:40> Family History: Family History Other ASCVD (arteriosclerotic cardiovascular disease) Diabetes <Rajni Nguyen MD - Last Filed: 01/21/22 15:40> Social History: 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, 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 Alert and oriented. Answers questions appropriately. No tangential or magical thinking noted. GCS is 15. HEENT: Normocephalic atraumatic. Pupils are equally round reactive to light. Extraocular muscles are intact. Conjunctivae are moist without any icterus noted. Moist mucous membranes. Posterior pharynx is normal. Neck is soft without any lymphadenopathy or thyromegaly. No masses are appreciated. Cardiovascular: Heart is regular rate and rhythm S1 and S2 are present without any murmurs. Lungs: Clear to auscultation bilaterally no wheezes rhonchi or rales are appreciated. Patient takes deep breaths without any discomfort. Abdomen: Soft and nontender nondistended with normal bowel sounds. No guarding or rebound. No masses or organomegaly appreciated. Extremities: Bilateral lower extremities are without edema. Normal DP and PT pulses. There is no bruising or ecchymosis noted over the left hip. Patient is exquisitely tender to palpation, crying and jumping with minimal touch to the left pelvic area. The pelvis appears firm, without excessive movement or crepitus. Patient is lying on her right side and tells me that she cannot move her left leg. Reflexes of both legs are normal and symmetric at the knee and Achilles. There is no tenderness over the buttocks. Back: Has normal appearance. She has no tenderness over the cervical, thoracic or lumbar spine. She has full range of motion at the neck without discomfort. Skin: Well perfused without any obvious rashes. <Rajni Nguyen MD - Last Filed: 01/21/22 15:40> Const: Vital Signs, click to edit/add: Vital Signs - 24 hr 01/21/22 14:22 Temperature 97.9 F Pulse Rate [Right Pulse Oximeter] 93 Respiratory Rate 18 Blood Pressure [Ri ght Upper Arm] 147/87 H Pulse Oximetry 98 Oxygen Delivery Me thod Room Air <Rajni Nguyen MD - Last Filed: 01/21/22 15:40> Vital Signs, click to edit/add: Vital Signs - 24 hr 01/21/22 14:22 Temperature 97.9 F Pulse Rate [Right Pulse Oximeter] 93 Respiratory Rate 18 Blood Pressure [Ri ght Upper Arm] 147/87 H Pulse Oximetry 98 Oxygen Delivery Me thod Room Air <Juan Diego Esquivel MD - Last Filed: 01/21/22 17:12> Course Course Hospital Course: X-ray of the pelvis was completed which did not show any abnormalities. Discussed with patient and she tells me that something is definitely wrong. We discussed that the next step would be a CT scan which increases risk of cancer secondary to radiation exposure, patient states that she understands this and she wishes to have a CT scan done of the pelvic area. Care be transferred to oncoming physician. <Rjani Nguyen MD - Last Filed: 01/21/22 15:40> Reevaluation(s) Reevaluation #1: CT reviewed with pt. No signs of fracture. There is, however, a 3.1 cm adrenal cyst which will need follow up. <Juan Diego Esquivel MD - Last Filed: 01/21/22 17:12> Time: 17:10 <Juan Diego Esquivel MD - Last Filed: 01/21/22 17:12> Vital Signs Vital signs: Initial Vital Signs Temperature 97.9 F 01/21/22 14:22 Temperature Source Temporal Artery Scan 01/21/22 14:22 Pulse Rate 93 01/21/22 14:22 Respiratory Rate 18 01/21/22 14:22 Blood Pressure 147/87 H 01/21/22 14:22 Blood Pressure Mean 107 01/21/22 14:22 Blood Pressure Position Sitting 01/21/22 14:22 Pulse Oximetry 98 01/21/22 14:22 Oxygen Delivery Method 01/21/22 14:22 Vital Signs Temperature 97.9 F 01/21/22 14:22 Pulse Rate 93 01/21/22 14:22 Respiratory Rate 18 01/21/22 14:22 Blood Pressure 147/87 H 01/21/22 14:22 Pulse Oximetry 98 01/21/22 14:22 Oxygen Delivery Method 01/21/22 14:22 Temperature 97.9 F 01/21/22 14:22 Pulse Rate 93 01/21/22 14:22 Respiratory Rate 18 01/21/22 14:22 Blood Pressure 147/87 H 01/21/22 14:22 Pulse Oximetry 98 01/21/22 14:22 Oxygen Delivery Method 01/21/22 14:22 <Rajni Nguyen MD - Last Filed: 01/21/22 15:40> Initial Vital Signs Temperature 97.9 F 01/21/22 14:22 Temperature Source Temporal Artery Scan 01/21/22 14:22 Pulse Rate 93 01/21/22 14:22 Respiratory Rate 18 01/21/22 14:22 Blood Pressure 147/87 H 01/21/22 14:22 Blood Pressure Mean 107 01/21/22 14:22 Blood Pressure Position Sitting 01/21/22 14:22 Pulse Oximetry 98 01/21/22 14:22 Oxygen Delivery Method 01/21/22 14:22 Vital Signs Temperature 97.9 F 01/21/22 14:22 Pulse Rate 93 01/21/22 14:22 Respiratory Rate 18 01/21/22 14:22 Blood Pressure 147/87 H 01/21/22 14:22 Pulse Oximetry 98 01/21/22 14:22 Oxygen Delivery Method 01/21/22 14:22 Temperature 97.9 F 01/21/22 14:22 Pulse Rate 93 01/21/22 14:22 Respiratory Rate 18 01/21/22 14:22 Blood Pressure 147/87 H 01/21/22 14:22 Pulse Oximetry 98 01/21/22 14:22 Oxygen Delivery Method 01/21/22 14:22 <Juan Diego Esquivel MD - Last Filed: 01/21/22 17:12> Medical Decision Making MDM Narrative Medical decision making narrative: 42-year-old female status post fall with contusion to the left hip. Patient will need ibuprofen and/or Tylenol as needed, ice or heat to the area, and activity as tolerated. <Rajni Nguyen MD - Last Filed: 01/21/22 15:40> Imaging Data Pelvis x-ray: Attestation: I have reviewed the pertinent imaging results. <Rajni Nguyen MD - Last Filed: 01/21/22 15:40> Radiologist's impression: Pelvis and left hip 4 views. Comparison: September 12, 2021. Findings: Bones: Alignment is normal. No fractures or bone lesions. Joint spaces: Unremarkable. Soft tissues: Unremarkable. Impression: No sign of acute injury. <Rajni Nguyen MD - Last Filed: 01/21/22 15:40> Discharge Plan Discharge Clinical Impression: Contusion of hip, left <Rajni Nguyen MD - Last Filed: 01/21/22 15:40> Patient Disposition: Home, Self-Care <Rajni Nguyen MD - Last Filed: 01/21/22 15:40> Condition: Stable <Rajni Nguyen MD - Last Filed: 01/21/22 15:40> Additional Instructions: Okay to take ibuprofen 800 mg every 8 hours and-or Tylenol 1000 mg up to 3 times per day for discomfort. Ice the area as needed, do not apply ice directly to skin. Activity as tolerated. Follow up with your doctor to discuss repeat imaging for adrenal cyst. <Rajni Nguyen MD - Last Filed: 01/21/22 15:40> Activity Level: No Restrictions <Rajni Nguyen MD - Last Filed: 01/21/22 15:40> No Restrictions <Juan Diego Esquivel MD - Last Filed: 01/21/22 17:12> Discharge Diet: Regular <Rajni Nguyen MD - Last Filed: 01/21/22 15:40> Regular <Juan Diego Esquivel MD - Last Filed: 01/21/22 17:12> Prescriptions: No Action bupropion HCl 300 mg tablet extended release 24 hr 300 mg PO DAILY albuterol sulfate 90 mcg/actuation HFA aerosol inhaler 2 puff inhalation Q4-6H PRN fluticasone furoate-vilanterol 200-25 mcg/dose blister with device See Rx Instructions inhalation DAILY Rx Instructions: 1 puff inhalation daily; diclofenac sodium 75 mg tablet,delayed release (DR/EC) 75 mg PO BID Qty: 60 2RF sertraline 100 mg tablet 100 mg PO DAILY Qty: 90 0RF trazodone 100 mg tablet 250 mg PO QHS Qty: 225 0RF omeprazole 20 mg capsule,delayed release(DR/EC) 20 mg PO QDAY Qty: 90 0RF <Rajni Nguyen MD - Last Filed: 01/21/22 15:40> Follow Up/Referrals: Danny Hernández MD [Primary Care Provider] - <Rajni Nguyen MD - Last Filed: 01/21/22 15:40> Stand Alone Forms: MyHealth Info Instructions <Rajni Nguyen MD - Last Filed: 01/21/22 15:40>
--- NOTE | 2022-01-21 15:37 | CRLHL7_ITS ---
For Patients: As a result of the Century Cures Act, medical imaging exams and procedure reports are released immediately into your electronic medical record. You may view this report before your referring provider. If you have questions, please contact your health care provider. INDICATION: Trauma to pelvis. TECHNIQUE: CT of the pelvis without intravenous contrast. Coronal and sagittal reconstructions. COMPARISON: Pelvis and left hip radiographs 01/21/2022. CT chest, abdomen, pelvis 09/12/2021. FINDINGS: No acute fracture identified. The hips are normally aligned with preserved joint spaces. Stable bone island in the right acetabulum. The sacroiliac joints are normal in appearance. No soft tissue contusion. No bowel dilation. Moderate amount of stool in the visualized ascending colon. Negative appendix. No free air or free fluid in the pelvis. No bladder wall thickening. Hysterectomy. There is a new 3.1 cm cystic lesion in the right adnexa (series 3, image 59). No lymphadenopathy. IMPRESSION: 1. No acute findings. 2. New 3.1 cm right adnexal cystic lesion. Please note that all CT scans at this facility use dose modulation, iterative reconstruction, and/or weight-based dosing when appropriate to reduce radiation dose to as low as reasonably achievable. Dictated by Marina Rojas MD @ 01/21/2022 5:00:24 PM (Electronically Signed)
--- OUTSIDE RECORDS SUMMARY | 2022-01-21 15:50 | XMS_ITS | Encounter Summary ---
:1980 Author Organization [place] Address [facility] [place] [address] Care Team Providers Name Role Phone Clinic, [facility] Primary Care Provide r Reason for Visit Reason Comments Shoulder Pain Encounter Details Date Type Department Care Team Description 12/30/2020 [facility] Quintin Houser, Jairo platinum pain of left shoulder (Primary Dx); [facility] Emergency Dep t MD Darling, initial encounter [address] [facility] [place], [place] [id number] [address] [phone] [address] [place], [place] [address] (Wo rk) Social History Tobacco Use Types Packs/Day Years Used Date Smoking Tobacco: Some Days Cigarettes 0.3 Alcohol Use Standard Drinks/Week Comments Yes 0 [...] follow up in about one week with [facility] for rotator cuff evaluation. AttachmentsThe following attachments cannot be sent through Care Everywhere.RICE (Uruguayan)Shoulder Immobilizer (Uruguayan)documented in this encounter Medications at Time of [...] for muscle relaxation. Re commended follow-up with [facility] as an outpatient for further [...] Houser MD Roach, Brian Donald, MD 12/30/20 0306 Gloria Child MD - 12/30/2020 5:09 PM [...] no history of injury or surgery in [facility], allergies to Vicodin but tolerates percocet. Review [...] with shoulder immobilizer, recommend follow up with [facility] in about a week for further evaluation. Interventions: Medications ketorolac (TORADOL) injection 15 mg (15 mg Intravenous Given 12/30/201825) cyclobenzaprine (FLEXERIL) tablet 10 mg (10 mg Oral Given 12/30/201825) acetaminophen (TYLENOL) tablet 975 mg (975 mg Oral Given 12/30/202034) oxyCODONE (ROXICODONE) tablet 5 mg (5 mg Oral Given 12/30/202034) Disposition: Discharge to home with follow up at [facility]. Impression & Plan Medical Decision Making: Lizette [...] and would benefit from outpatient evaluation with [facility]. She will be discharged to [...] XR WRIST LEFT G/E 3 VIEWS LOCATION: [facility] DATE/TIME: 12/30/2020 7:48 PM INDICATION: fall with pop and wrist limi heather ROM COMPARISON: None. Procedure Note Shon Galan MD - 12/30/2020F ormatting of this note might be different from the original. EXAM: XR WRIST LEFT G/E 3 VIEWS LOCATION: [facility] DATE/TIME: 12/30/2020 7:48 PM INDICATION: fall with pop and wrist limi heather ROM COMPARISON: None. IMPRESSION: Normal joint spaces and alig nment. No fracture. Gloria Child MD [facility] [place] DIAGNOSTIC IMAGING ORD ERABLES XR Shoulder Left [...] XR SHOULDER LEFT G/E 3 VIEWS LOCATION: [facility] DATE/TIME: 12/30/2020 7:23 PM INDICATION: fell with pop and pain with ROM COMPARISON: None. Procedure Note Shon Galan MD - 12/30/2020F ormatting of this note might be different from the original. EXAM: XR SHOULDER LEFT G/E 3 VIEWS LOCATION: [facility] DATE/TIME: 12/30/2020 7:23 PM INDICATION: fell with pop and pain with ROM COMPARISON: None. IMPRESSION: Normal joint spaces and alig nment. No fracture. Gloria Child MD [facility] [place] DIAGNOSTIC IMAGING ORD ERABLES Elbow XR, G/E [...] XR ELBOW LEFT G/E 3 V[facility]WS [facility] DATE/TIME: 12/30/2020 7:22 PM INDICATION: Fall with limited ROM at L e lbow COMPARISON: None. Procedure Note Shon Gaaln MD - 12/30/2020F ormatting of this note might be different from the original. EXAM: XR ELBOW LEFT G/E 3 VIEWS LOCATION: [facility] DATE/TIME: 12/30/2020 7:22 PM [...] dose documented in this encounter Care Teams Cell Biology Scientist Relationship Specialty Start Date End Date Clinic, [facility] PCP - General 12/30/201999 [place] [address] documented as of this encounter
--- OUTSIDE RECORDS SUMMARY | 2022-01-21 15:50 | XMS_ITS | Encounter Summary ---
:1980 Author Organization [place] Address [facility] [place] [address] Care Team Providers Name Role Phone Ratna Mackey MD Primary Care Provider Reason for Visit Reason Comments Other patient complaining of breas t pain Encounter Details Date Type Department Care Team Description 01/15/2016 Emergency [facility] Shahram Medrano, Cellulitis of right [place] [facility] t DO breast [address] [facility] [id number] [address] [phone] [place], [place] [address] (Wo rk) Social History Tobacco Use Types [...] in this encounter Discharge Instructions Discharge InstructionsShahram Renteria DO - 01/15/2016 11:35 PM CDT Images [...] are in pain. Ask what kind of [id number] medication you can takefor pain. ?? Apply [...] or pus draining from the area ?? [phone] [employer]. [address] [place] [address], [place] [address]. All rights reserved. This information is not [...] R-0, Local Print Shahram Renteria D.O. 01/15/2016 [facility] EMERGENCY DEPARTMENT Shahram Renteria DO 01/16/16 0037 [...] / Laterality Volume Impressions 03/12/2016 7:49 AM GENETICS TEACHER IMPRESSION: BI-RADS CATEGORY: 1 - ??Negative. RECOMMENDED FOLLOW-UP: Clinical follow-u hollis MCDOWELL MD Narrative 03/12/2016 7:49 AM GENETICS TEACHER DIAGNOSTIC ULTRASOUND RIGHT BREAST, 03/12/2016 7:49 AM. [...] mg (COMPLETED) 2344 (Given - Provider: Lorelei Gold, ANGE) 500 mg, Oral, ONCE, Fri01/15/16 at 2335, For 1 dose, Indications: Skin and Soft Tissue Infection ibuprofen (ADVIL,MOTRIN) tablet 600 mg (COMPLETED) 2218 (Given - Provider: Lorelei Gold RN) 600 mg, Oral, ONCE, 01/15/16 at 2216, For 1 dose documented in this encounter Care Teams Telecommunications Officer Relationship Specialty Start Date End Date Ratna Mackey MD PCP - General Family Practice 03/07/15 12/29/20 [facility] [address] [place] [address] documented as of this encounter
--- OUTSIDE RECORDS SUMMARY | 2022-01-21 15:50 | XMS_ITS | Clinical Summary ---
:1980 Author Organization [place] Address [address] [place] [address] Care Team Providers Name Role Phone Clinic, [facility] Primary Care Provide r Allergies Active Allergy [...] 1980 ANNUAL REVIEW OF HM ORDERS 1982 YEARLY PREVENTIVE VISIT 1982 Pneumococcal Vaccine: 01/13/1988 Pediatrics (0 to 5 Years) and At-Risk Patients (6 to 64 Years) (1 - PCV) HIV SCREENING 1997 HEPATITIS C SCREENING 01/13/2000 PAP 2003 COVID-19 Vaccine (3 - 10/24/2020 08/29/2020, 08/01/2020 Booster for Moderna series) PHQ-2 [...] ss Type Group BCBS BCBS OUT OF [id number] 2019-Present [phone] [address] [address] [place] [address] [phone] Constitutional ly 6 (Home) none (Work) Dante [place] [id number] Care Teams Loft Worker Head Relationship Specialty Start Date End Date Clinic, [facility] PCP - General 12/30/201999 [place] [address]
--- OUTSIDE RECORDS SUMMARY | 2022-01-21 15:50 | XMS_ITS | Encounter Summary ---
:1980 Author Organization [facility] Address [address] [place] [address] Care Team Providers Name Role Phone Ratna Mackey MD Primary Care Provider Reason for Visit Reason Comments Constipation Encounter Details Date Type Department Care Team Description 11/13/[address] [facility] Krysta Pantoja MD Constipation, [facility] Emergency Dep t EMERGENCY PHYSICIANS unspecified [address] constipation type [place], [place] [address] [facility] [address] [place] [address] [phone] (Wo rk) Social History Tobacco Use Types Packs/Day Years Used Date Smoking Tobacco: Some Days Cigarettes 0.3 Alcohol Use Standard Drinks/Week Comments No 0 [...] contain Tylenol?? (acetaminophen), including Vicodin??, Tylenol #3??, Sylvia??, Lortab??, and Percocet??. You should not take [...] CDT Enema completed per Kelly Burr, nursing gallery intern with supervision. Lab currently drawing specimens, awaiting [...] WNL HCG Qualitative Urine: Negative Interventions: 2025 [place] Enema 186mL Rectal Emergency Department Course: [...] and the provider's statements to me. 11/13/2015 [facility] EMERGENCY DEPARTMENT Krysta Pantoja MD 11/14/15 1225 [...] athologist Signature HCG Qual Urine Negative NEG [facility] Specimen Anatomical Collection Method Collection Time Receive d Time (Source) Location / / Volume Laterality Urine specimen URINE SPECIMEN 11/13/2015 8:25 PM 11/12 8:48 (specimen) OBTAINED BY CLEAN CDT PM CDT CATCH PROCEDURE / Unknown Krysta Pantoja MD LAB - URINE ORDERABLES Performing Organization Address City/State/ZIP Code Phon e Number [facility] [address] [id number] [facility]OSP[facility] [address] [address] [facility] [phone] UA with Microscopic (11/13/2015 8:25 PM CDT) Patholo gist Method Time Signature Color Urine Straw [facility] Appearance Urine Slightly [facility] Cloudy [facility] Glucose Urine Negative NEG mg/dL [facility] Bilirubin Urine Negative NEG [facility] Ketones Urine Negative NEG mg/dL [facility] Specific [place] 1.006 1.003 - [facility] Urine 1.035 [facility] Blood Urine Negative NEG [facility] pH Urine 7.0 5.0 - 7.0 [facility] pH [facility] Protein Albumin Negative NEG mg/dL [facility] Urobilinogen Normal 0.0 - 2.0 [facility] mg/dL mg/dL [facility] Nitrite Urine Negative NEG [facility] Leukocyte Negative NEG [facility] Esterase Urine [facility] Source Midstream [facility] WBC Urine <1 0 - 2 [facility] RBC Urine 0 0 - 2 [facility] Squamous 1 0 - 1 [facility] Epithelial [facility] ER Specimen Anatomical Collection Method Collection Time Receive d Time (Source) Location / / Volume Laterality Urine specimen URINE SPECIMEN 11/13/2015 8:25 PM 11/12 8:48 (specimen) OBTAINED BY CLEAN CDT PM CDT CATCH PROCEDURE / Unknown Krysta Pantoja MD LAB - URINE ORDERABLES Performing Organization Address City/[facility]/ZIP [facility] [place] [place] Phon e Number [facility] [address] [place], [place] [address] [address] [address] [address] [address] [address] [facility] [phone] Lipase (11/13/2015 8:19 PM CDT) P athologist Signature Lipase 93 73 - 393 [facility] U/L [facility] Specimen Anatomical Collection Method Collection Time Receive d Time (Source) Location / / Volume Laterality Blood specimen 11/13/2015 8:19 PM 016 8:26 (specimen) CDT PM CDT Krysta Pantoja MD LAB - BLOOD ORDERABLES Performing Organization Address City/[facility]/ZIP [facility] [place] [place] Phon e Number [facility] [address] [place], [place] [address] [facility] [address] [address] [address] [facility] [phone] (ABNORMAL) Comprehensive metabolic panel (11/13/2015 8:19 PM CDT) Patholo gist Method Time Signature Sodium 141 133 - 144 [facility] mmol/L [facility] Potassium 4.4 3.4 - 5.3 [facility] mmol/L [facility] Chloride 109 94 - 109 [facility] mmol/L [facility] Carbon Dioxide 27 20 - 32 [facility] mmol/L [facility] Anion Gap 5 3 - 14 [facility] mmol/L [facility] Glucose 123 (H) 70 - 99 [facility] mg/dL [facility] Urea Nitrogen 7 7 - 30 [facility] mg/dL [facility] Creatinine 0.63 0.52 - [facility] 1.04 [facility] mg/dL [facility] GFR Estimate >90 >60 [facility] Non GFR Calc mL/min/1. [facility] 7m2 [facility] GFR Estimate If >90 >60 [facility] Black GFR Calc mL/min/1. [facility] 7m2 [facility] Calcium 8.7 8.5 - [facility] 10.1 [facility] mg/dL [facility] Bilirubin Total 0.3 0.2 - 1.3 [facility] mg/dL [facility] Albumin 3.4 3.4 - 5.0 [facility] g/dL [facility] Protein Total 6.9 6.8 - 8.8 [facility] g/dL [facility] Alkaline 72 40 - 150 [facility] Phosphatase U/L [facility] ALT 28 0 - 50 [facility] U/L [facility] AST 17 0 - 45 [facility] U/L [facility] Specimen Anatomical Collection Method Collection Time Receive d Time (Source) Location / / Volume Laterality Blood specimen 11/13/2015 8:19 PM 016 8:26 (specimen) CDT PM CDT Krysta Pantoja MD LAB - BLOOD ORDERABLES Performing Organization Address City/State/ZIP Code Phon e Number [facility] [address] [address] [facility]OSP[facility] [address] [phone] (ABNORMAL) CBC + differential (11/13/2015 8:19 PM CDT) [facility] Method Time Signature WBC 10.1 4.0 - [facility] 11.0 [facility] 10e9/L [facility] RBC Count 4.81 3.8 - 5.2 [facility] 10e12/[facility] Hemoglobin 14.1 11.7 - [facility] 15.7 g/dL [facility] Hematocrit 43.2 35.0 - [facility] 47.0 % [facility] MCV 90 78 - 100 [facility] fl [facility] MCH 29.3 26.5 - [facility] 33.0 pg [facility] MCHC 32.6 31.5 - [facility] 36.5 g/dL [facility] RDW 12.9 10.0 - [facility] 15.0 % [facility] Platelet Count 256 150 - [address] Diff Method Automated [facility] Method [facility] % Neutrophils 83.6 % [facility] % Lymphocytes 10.8 % [facility] % Monocytes 4.6 % [facility] % Eosinophils 0.4 % [facility] % Basophils 0.2 % [facility] % Immature 0.4 % [facility] Granulocytes [facility] Nucleated RBCs 0 0 /100 [facility] Absolute 8.4 (H) 1.6 - 8.3 [facility] Neutrophil [address] [place] [address] Absolute 1.1 0.8 - 5.3 [facility] Lymphocytes [address] [place] [address] Absolute 0.5 0.0 - 1.3 [facility] Monocytes [address] [place] [address] Absolute 0.0 0.0 - 0.7 [facility] Eosinophils [address] [place] [address] Absolute 0.0 0.0 - 0.2 [place] Basophils [address] [place] [address] Abs Immature 0.0 0 - 0.4 [facility] Granulocytes [address] [place] [address] Absolute 0.0 [facility] Nucleated RBC [facility] Specimen Anatomical Collection Method Collection Time Receive d Time (Source) Location / / Volume Laterality Blood specimen 11/13/2015 8:19 PM 016 8:26 (specimen) CDT PM CDT Krysta Pantoja MD LAB - BLOOD ORDERABLES Performing Organization Address City/State/ZIP Code Phon e Number [facility] [address] [place], [place] [address] [employer] [address] [place], [place] [address] [place] [address] Abdomen XR, 2 vw, flat and upright [...] contamination. documented in this encounter Care Teams Water Fabricator Operator Relationship Specialty Start Date End Date Ratna Mackey MD PCP - General Family Practice 03/07/15 12/29/20 [facility] [address] [place] [address] documented as of this encounter
--- OUTSIDE RECORDS SUMMARY | 2022-01-21 15:50 | XMS_ITS | Encounter Summary ---
:1980 Author Organization [facility] Address [address] [place] [address]. [place] [address] Care Team Providers Name Role Phone Ratna [...] 03/24/2000 12:00 AM Re sults for this CRIBBER procedure are i n the results section. documented in this encounter Results XR Abdomen 2 Views (03/24/2000 12:00 AM CRIBBER) Anatomical Region Laterality Modality Abdomen/Pelvis Other Specimen (Source) Anatomical Location Collection Method / Collectio n Time Received Time / Laterality Volume Narrative 03/24/2000 12:00 AM [facility]ER See Historical Hospital Medical Record f or documentation Procedure Note Provider, Historical - 09/05/2020Formatt ing of this note might be different from the original. See Historical Hospital Medical Record f or documentation Historical Provider IMG DIAGNOSTIC IMAGING ORDER BRIDGETT documented in this encounter Visit Diagnoses Not on filedocumented in this encounter Care Teams Heel Buffer Relationship Specialty Start Date End Date Ratna Mackey MD PCP - General Family Practice 03/07/15 12/29/20 [facility] [address] [place], [place] [id number] documented as of this encounter
--- OUTSIDE RECORDS SUMMARY | 2022-01-21 15:50 | XMS_ITS | Encounter Summary ---
:1980 Author Organization [place] Address [address] [place] [address] Care Team Providers Name Role Phone [facility] Primary Care Provide r Encounter Details Date [...] on filedocumented in this encounter Care Teams Cyber Security Consultant Relationship Specialty Start Date End Date [facility] PCP - General 12/30/201999 [facility] [place] [address] documented as of this encounter
--- OUTSIDE RECORDS SUMMARY | 2022-01-21 15:50 | XMS_ITS | Encounter Summary ---
:1980 Author Organization [facility] Address [address] [place] [address] Care Team Providers Name Role Phone [facility] Primary Care Provide r Encounter Details [...] on filedocumented in this encounter Care Teams Bus Escort Relationship Specialty Start Date End Date [facility] PCP - General 12/30/201999 [facility] [place] [address] documented as of this encounter
--- OUTSIDE RECORDS SUMMARY | 2022-01-21 15:51 | XMS_ITS | Encounter Summary ---
:1980 Author Organization [facility] Address [address] [place] [address] Care Team Providers Name Role Phone Jamin Silva MD Primary Care Provider Reason for Visit Reason Comments Abdominal Pain Encounter Details Date Type Department Care Team Description 05/14/2014 [facility] Emergency Dep t [facility] [address] [place], [place] [address] [facility] [address] [place] [address] [phone] (Wo rk) Social History Tobacco Use Types Packs/Day Years Used Date Smoking Tobacco: Every Day Cigarettes 0.3 Alcohol Use Standard Drinks/Week Comments No 0 (1 standard drink = 0.6 oz pure alcoho l) Sex Assigned at Date Recorded Not on file documented as of this encounter Last Filed Vital Signs Vital Sign Reading Time Taken Comments Blood Pressure 122/77 05/14/2014 5:07 PM LADIES UNDERWEAR OPERATOR Pulse 103 05/14/2014 12:54 PM LADIES UNDERWEAR OPERATOR Temperature 36.8 ??C (98.2 ??F) 05/14/2014 12:54 PM LADIES UNDERWEAR OPERATOR Respiratory Rate 24 05/14/2014 12:54 PM LADIES UNDERWEAR OPERATOR Oxygen Saturation 99% 05/14/2014 1:00 PM LADIES UNDERWEAR OPERATOR Inhaled Oxygen Concentration - - Weight 77.1 kg (170 lb) 05/14/2014 12:54 PM LADIES UNDERWEAR OPERATOR Height 167.6 cm (5' 6) 05/14/2014 12:54 PM LADIES UNDERWEAR OPERATOR Body Mass Index 27.44 05/14/2014 12:54 PM LADIES UNDERWEAR OPERATOR documented in this encounter Discharge Instructions Discharge [...] directed by your doctor today. Before using maee-wfu-qouqbmi medications, ask your doctor and make sure [...] contain Tylenol?? (acetaminophen), including Vicodin??, Tylenol #3??, Shamokin??, Lortab??, and Percocet??. You should not take [...] if there is anything that worries you. ES UNDERWEAR OPERATOR documented in this encounter Medications at Time [...] - 05/14/2014 4:22 PM CST Pt sleeping. ES UNDERWEAR OPERATOR Meredith Garcia RN - 05/14/2014 4:22 PM CST td ES UNDERWEAR OPERATOR Ailin Lucas RN - 05/14/2014 2:22 PM CST Pt to U/S at this time. ES UNDERWEAR OPERATOR Carlos Lee MD - 05/14/2014 1:17 PM [...] nausea, vomiting, diarrhea, dysuria, or back pain. [facility] ABDOMEN PELVIS W 05/13/2014 11:42 [...] as needed for nausea Prem Turner 05/14/2014 [facility] EMERGENCY DEPARTMENT I, Prem Turner, am serving as a scribe at 1:42 PM on 05/14/2014 to document services personally performed by Dr. Lee, based on my observations and the provider's statements to me. Carlos Lee MD 05/14/14 [id number] ES UNDERWEAR OPERATOR Lashae Valentine RN - 05/14/2014 12:56 PM CST Patient presents with severe left lower abdominal pain, rating her pain a 10 on a 1-10 scale. Of note, patient had an abdominal CT yesterday with normal results. Pain persists, increasing in severitylast evening. ES UNDERWEAR OPERATOR documented in this encounter Plan of Treatment Not on filedocumented as of this encounter Procedures Procedure Name Priority Date/Time Associated Comments Diagnosis OCCULT BLOOD STOOL STAT 05/14/2014 3:24 PM Chronic abdomina l Results for this LADIES UNDERWEAR OPERATOR pain procedure are i n the results section. WET PREPARATION STAT 05/14/2014 3:24 PM Chronic abdominal R esults for this LADIES UNDERWEAR OPERATOR pain procedure are i n the results section. NEISSERIA GONORRHOEAE STAT 05/14/2014 3:24 PM Chronic abdom inal Results for this PCR LADIES UNDERWEAR OPERATOR pain procedure are i n the results section. CHLAMYDIA TRACHOMATIS STAT 05/14/2014 3:24 PM Chronic abdom inal Results for this PCR LADIES UNDERWEAR OPERATOR pain procedure are i n the results section. US PELVIS COMPLETE W STAT 05/14/2014 3:03 PM R esults for this TRANSVAGINAL AND LADIES UNDERWEAR OPERATOR procedure a re in DOPPLER LIMITED the results section. ROUTINE UA WITH STAT 05/14/2014 2:39 PM Chronic abdominal R esults for this MICROSCOPIC LADIES UNDERWEAR OPERATOR pain procedure are i n the results section. LACTIC ACID STAT 05/14/2014 2:00 PM Results f or this LADIES UNDERWEAR OPERATOR procedure are i n the results section. CBC WITH PLATELETS & STAT 05/14/2014 1:00 PM R esults for this DIFFERENTIAL LADIES UNDERWEAR OPERATOR procedure are i n the results section. LIPASE STAT 05/14/2014 1:00 PM Results f or this LADIES UNDERWEAR OPERATOR procedure are i n the results section. COMPREHENSIVE STAT 05/14/2014 1:00 PM Results for this METABOLIC PANEL LADIES UNDERWEAR OPERATOR procedure ar e in the results section. documented in this encounter Results (ABNORMAL) Stool: occult blood (05/14/2014 3:24 PM LADIES UNDERWEAR OPERATOR) [facility] Method Time Signature Occult Blood Positive (A) NEG [facility] Specimen Anatomical Collection Method Collection Time Receive d Time (Source) Location / / Volume Laterality Stool specimen STOOL SPECIMEN / 05/14/2014 3:24 PM 3:40 (specimen) Unknown LADIES UNDERWEAR OPERATOR PM LADIES UNDERWEAR OPERATOR Carlos Lee MD LAB - STOOLS ORDERABLES Performing Organization Address City/[facility] [address]/[facility] Phon e Number [place] [address] [address] [facility] [address] [place], [place] [address] Neisseria gonorrhoea PCR (05/14/2014 3:24 PM LADIES UNDERWEAR OPERATOR) Component Value Ref Test Analysis Performed At [facility] Method Time Signature Specimen Vagina [facility] N Gonorrhea Negative NEG [facility] Negative for N. gonorrhoeae rRNA by transcripti on mediated amplification. [facility] A negative result by transc ription mediated amplification does not preclude the [facility] presence of N. gonorrhoeae infection because re sults are dependent on proper BANK and adequate collection, absence of inhibitors, and suffici ent rRNA to be detected. Specimen Anatomical Collection Method Collection Time Receive d Time (Source) Location / / Volume Laterality Vaginal swab 05/14/2014 3:24 PM 5 3:39 (specimen) LADIES UNDERWEAR OPERATOR PM LADIES UNDERWEAR OPERATOR Carlos Lee MD LAB - MICRO GENERAL ORDERABL ES Performing Organization Address City/State/ZIP Code Phon e Number [address] [address] [facility] [address] [place], [place] [address] Chlamydia trachomatis PCR (05/14/2014 3:24 PM LADIES UNDERWEAR OPERATOR) Component Value Ref Test Analysis Performed At [facility] Range Method Time Signature Specimen Vagina [facility] Chlamydia Negative NEG [facility] Tr[facility] Negative for C. trachomatis rRNA by entry level staff accountant mediated amplification. [facility] PCR A negative result by transc ription mediated amplification does not preclude the [facility] presence of C. trachomatis infection because re sults are dependent on proper BANK and adequate collection, absence of inhibitors, and suffici ent rRNA to be detected. Specimen Anatomical Collection Method Collection Time Receive d Time (Source) Location / / Volume Laterality Vaginal swab 05/14/2014 3:24 PM 5 3:39 (specimen) LADIES UNDERWEAR OPERATOR PM LADIES UNDERWEAR OPERATOR Carlos Lee MD LAB - MICRO GENERAL ORDERABL ES Performing Organization Address City/[facility] [address]/ZIP Code Phon e Number [address] [address] [facility] [address] [place], [place] [address] 7 Wet prep (05/14/2014 3:24 PM LADIES UNDERWEAR OPERATOR) [facility] Method Time Signature Specimen Vagina [facility] Wet Prep Few PMNs seen [facility] No Trichomonas seen [facility] No yeast seen [facility] No clue cells seen Micro Report FINAL [facility] Status 05/14/2014 [facility] Specimen Anatomical Collection Method Collection Time Receive d Time (Source) Location / / Volume Laterality Vaginal swab 05/14/2014 3:24 PM 5 3:39 (specimen) LADIES UNDERWEAR OPERATOR PM LADIES UNDERWEAR OPERATOR Carlos Lee MD LAB - MICRO GENERAL ORDERABL ES Performing Organization Address City/[facility] [address]/ZIP Code Phon e Number [facility] [address] [address] [facility] [address] [address] 7 [place] Pelvic Complete w Transvaginal & Abd/Pel Duplex Limited (05/14/2014 3:03 PM LADIES UNDERWEAR OPERATOR) Anatomical Region Laterality Modality Abdomen/Pelvis Ultrasound Specimen (Source) Anatomical Location Collection Method / Collectio n Time Received Time / Laterality Volume Impressions 05/14/2014 3:48 PM LADIES UNDERWEAR OPERATOR IMPRESSION: No torsion demonstrated. Small cyst in the right ovary. ZINA MURRAY MD Narrative 05/14/2014 3:48 PM LADIES UNDERWEAR OPERATOR ULTRASOUND PELVIS ??WITH TRANSVAGINAL IMAGING ??05/14/2014 3:03 [...] (ABNORMAL) UA with Microscopic (05/14/2014 2:39 PM LADIES UNDERWEAR OPERATOR) [facility] Method Time Signature Color Urine Yellow [facility] Appearance Urine Clear [facility] Glucose Urine Negative NEG mg/dL [facility] Bilirubin Urine Negative NEG [facility] Ketones Urine Negative NEG mg/dL [facility] Specific [place] 1.016 1.003 - [facility] Urine 1.035 [facility] Blood Urine Negative NEG [facility] pH Urine 6.0 5.0 - 7.0 [facility] Protein Albumin Negative NEG mg/dL [facility] Urobilinogen Normal 0.0 - 2.0 [facility] mg/dL mg/dL [facility] Nitrite Urine Negative NEG [facility] Leukocyte Negative NEG [facility] Esterase Urine [facility] Source Midstream [facility] WBC Urine <1 0 - 2 [facility] RBC Urine <1 0 - 2 [facility] Mucous Urine Present (A) NEG /LPF [facility] Specimen Anatomical Location Collection Method Collection Time Received Time (Source) / Laterality / Volume Urine specimen URINE SPECIMEN 05/14/2014 2:39 05/14/19 15 3:07 (specimen) COLLECTION, PM LADIES UNDERWEAR OPERATOR PM LADIES UNDERWEAR OPERATOR CATHETERIZED / Unknown Carlos Lee MD LAB - URINE ORDERABLES Performing Organization Address City/[facility] [address]/ZIP [facility] [address] [place], [place] [address] 7 [phone] [place] [address] [address] [place], [place] [address] Lactic acid (05/14/2014 2:00 PM LADIES UNDERWEAR OPERATOR) athologist Signature Lactic Acid 1.0 0.4 - 2.0 [facility] Specimen Anatomical Collection Method Collection Time Receive d Time (Source) Location / / Volume Laterality Blood specimen 05/14/2014 2:00 PM 015 2:25 (specimen) LADIES UNDERWEAR OPERATOR PM LADIES UNDERWEAR OPERATOR Carlos Lee MD LAB - BLOOD ORDERABLES Performing Organization Address City/[facility] [address]/ZIP [facility] [address] [place], [place] [address] 7 [phone] [place] [address] [address] [place], [place] [address] Lipase (05/14/2014 1:00 PM LADIES UNDERWEAR OPERATOR) athologist Signature Lipase 154 73 - 393 [facility] U/[facility] Comment: Effective 11/10/2013, the reference range for this assay has changed to reflect new instrumentation/methodology. Specimen Anatomical Collection Method Collection Time Receive d Time (Source) Location / / Volume Laterality Blood specimen 05/14/2014 1:00 PM 015 2:24 (specimen) LADIES UNDERWEAR OPERATOR PM LADIES UNDERWEAR OPERATOR Carlos Lee MD LAB - BLOOD ORDERABLES Performing Organization Address City/State/ZIP Code Phon e Number M [facility] [address] [place], [place] [address] [facility] [address] [place], [place] [address] (ABNORMAL) Comprehensive metabolic panel (05/14/2014 1:00 PM LADIES UNDERWEAR OPERATOR) athologist Signature Sodium 136 133 - 144 [facility] mmol/L [facility] Potassium 3.9 3.4 - 5.3 [facility] mmol/L [facility] Chloride 106 94 - 109 [facility] mmol/L [facility] Carbon Dioxide 23 20 - 32 [facility] mmol/L [facility] Anion Gap 7 3 - 14 [facility] mmolL [facility] Glucose 85 70 - 99 [facility] mg/dL [facility] Comment: Effective 11/10/2013, the reference range for this assay has changed to reflect new instrumentation/methodology. Urea Nitrogen 14 7 - 30 mg/dL [facility] Comment: Effective 11/10/2013, the reference range for this assay has changed to reflect new instrumentation/methodology. Creatinine 0.75 0.52 - 1.04 mg/dL [facility] GFR Estimate 90 >60 mL/min/1.7m2 [facility] Comment: Non GFR Calc GFR Estimate If Black >90 >60 mL/min/1.7m2 F [facility] GFR Calc HOSP ITAL Calcium 8.4 (L) 8.5 - 10.1 mg/dL [facility] Comment: Effective 11/10/2013, the reference range for this assay has changed to reflect new instrumentation/methodology. Bilirubin Total 0.3 0.2 - 1.3 mg/dL [facility] Albumin 3.5 3.4 - 5.0 g/dL [facility] Protein Total 7.4 6.8 - 8.8 g/dL [facility] Alkaline Phosphatase 68 40 - 150 U/L [facility] ALT 22 0 - 50 U/L [facility] AST 16 0 - 45 U/L [facility] Specimen Anatomical Collection Method Collection Time Receive d Time (Source) Location / / Volume Laterality Blood specimen 05/14/2014 1:00 PM 015 2:24 (specimen) LADIES UNDERWEAR OPERATOR PM LADIES UNDERWEAR OPERATOR Carlos Lee MD LAB - BLOOD ORDERABLES Performing Organization Address City/State/ZIP Code Phon e Number [place] [address] [address] [place], [place] [address] [facility] [address] [place], [place] [address] CBC with platelets differential (05/14/2014 1:00 PM LADIES UNDERWEAR OPERATOR) [facility] gist Method Time Signature WBC 8.3 4.0 - [facility] 11.0 [facility] 109[facility] RBC Count 4.59 3.8 - 5.2 [facility] 10e12L [facility] Hemoglobin 13.4 11.7 - [facility] 15.7 g/dL [facility] Hematocrit 40.2 35.0 - [facility] 47.0 % [facility] MCV 88 78 - 100 [facility] MCH 29.2 26.5 - [facility] 33.0 pg [facility] MCHC 33.3 31.5 - [facility] 36.5 g/dL [facility] RDW 13.2 10.0 - [facility] 15.0 % [facility] Platelet Count 248 150 - [address] Diff Method Automated [facility] % Neutrophils 74.9 % [facility] % Lymphocytes 19.9 % [facility] % Monocytes 3.6 % [facility] % Eosinophils 1.1 % [facility] % Basophils 0.1 % [facility] % Immature 0.4 % [facility] Granulocytes [facility] Absolute 6.2 1.6 - 8.3 [facility] Neutrophil 10e9/[facility] Absolute 1.6 0.8 - 5.3 [facility] Lymphocytes 10e9[facility] Absolute 0.3 0.0 - 1.3 [facility] Monocytes [address] [place] [address] Absolute 0.1 0.0 - 0.7 [facility] Eosinophils [address] [place] [address] Absolute 0.0 0.0 - 0.2 [facility] Basophils [address] [place] [address] Abs Immature 0.0 0 - 0.4 [facility] Granulocytes [address] [place] [address] Specimen Anatomical Collection Method Collection Time Receive d Time (Source) Location / / Volume Laterality Blood specimen 05/14/2014 1:00 PM 015 2:24 (specimen) LADIES UNDERWEAR OPERATOR PM LADIES UNDERWEAR OPERATOR Carlos Lee MD LAB - BLOOD ORDERABLES Performing Organization Address City/State/ZIP Code Phon e Number M [place] [address] [address] [facility] [address] [address] documented in this encounter Visit Diagnoses Diagnosis Chronic abdominal pain Abdominal pain, unspecified site documented in this encounter Administered Medications Inactive Administered Medications - up to 3 most recent administrations Medication Order MAR Action Action Date Dose Rate Site diphenhydrAMINE (BENADRYL) Given 05/14/2014 2:06 PM LADIES UNDERWEAR OPERATOR 50 mg injection 50 mg 50 mg, Intravenous, ONCE, On 05/14/14 at 1352, For 1 dose ketorolac (TORADOL) injection 30 mg Given 05/14/2014 2:06 PM LADIES UNDERWEAR OPERATOR 30 mg 30 mg, Intravenous, ONCE, On [...] Recently Administered Medications Times are shown in LADIES UNDERWEAR OPERATOR. Scheduled Medication Order 05/12/2014 05/13/2014 05/14/2014 diphenhydrAMINE [...] extravasation. documented in this encounter Care Teams Precision Aircraft Structure Assembler Relationship Specialty Start Date End Date Jamin Silva MD PCP - General Family Medicine - Sports 06/01/13 Medicine documented as of this encounter
--- OUTSIDE RECORDS SUMMARY | 2022-01-21 15:51 | XMS_ITS | Encounter Summary ---
:1980 Author Organization [facility] Address [address] [place] [address] Care Team Providers Name Role Phone Jamin Silva MD Primary Care Provider Reason for Visit Reason Comments Pharyngitis Encounter Details Date Type Department Care Team Description [facility]/01[facility]2013 [facility] t (Primary Dx[facility] [address] [facility] [id number] [phone] [address] [place], [place] [phone] (Wo rk) Social History Tobacco Use Types Packs/Day Years Used Date Smoking Tobacco: Never Assessed Sex Assigned at Date Recorded Not on file documented as of this encounter Last Filed Vital Signs Vital Sign Reading Time Taken Comments Blood Pressure 121/81 06/01/2013 9:22 PM [facility] OFF Pulse 76 06/01/2013 8:19 PM [facility] Temperature 36.7 ??C (98.1 ??F) 06/01/2013 8:19 PM [facility] Respiratory Rate 16 06/01/2013 9:22 PM [facility] Oxygen Saturation 99% 06/01/2013 9:22 PM [facility] Inhaled Oxygen Concentration - - Weight 79.4 kg (175 lb) 06/01/2013 8:19 PM [facility] Height - - Body Mass Index - - documented in this encounter Discharge Instructions Discharge InstructionsShon Patel MD - 06/01/2013 9:03 PM [facility] OFF Home Back SP RU CH *PHARYNGITIS (Sore [...] ?? Muffled voice ?? New rash ?? [phone] [facility], [address] [place] [address]. All rights reserved. This information is not intended as a substitute for professional medical care. Always follow your healthcare professional's instructions. ER OFF documented in this encounter Medications at Time [...] record. The patient was placed on a manager monitoring and continuous pulse oximeter. The patient was [...] provider's statements to me. Christine Agudelo 06/01/2013 [facility] EMERGENCY DEPARTMENT Shon Patel MD 06/02/13 0032 ER OFF Lindsay Gregorio RN - 06/01/2013 8:31 PM CST MD at bedside. ER OFF Lindsay Gregorio, ANGE - 06/01/2013 8:18 PM CST severe sore throat for 3 days, was sick a couple weeks ago with vomiting and fever 102.5, no othercomplaints at this time ER OFF documented in this encounter Plan of Treatment Not on filedocumented as of this encounter Procedures Procedure Name Priority Date/Time Associated Diagnosis Comme nts RAPID STREP SCREEN STAT 06/01/2013 8:17 PM Res ults for this THROAT SWAB [facility] procedure are i n the results section. BETA HEMOLYTIC Routine 06/01/2013 8:17 PM Results for this STREP GROUP A [facility] procedure are in CULTURE the results section. documented in this encounter Results Beta strep group A culture (06/01/2013 8:17 PM [facility] OFF) Component Value Ref Test Analysis Performed At [facility] Range Method Time Signature Specimen Throat [facility] LAB Culture Micro No Beta [facility] Streptococcus MICROBIOLOGY isolated Micro Report FINAL 06/03/2013 [facility] Status MICROBIOLOGY Specimen Anatomical Collection Method Collection Time Receive d Time (Source) Location / / Volume Laterality 06/01/2013 8:17 PM 4 8:27 [facility] PM [facility] Shon Patel MD LAB - MICRO GENERAL ORDERABL ES Performing Organization Address City/State/ZIP Code Phon e Number [facility] [address] [place] [address] [facility] MICROBIOLOGY Rapid strep screen (06/01/2013 8:17 PM [facility] OFF) Component Value Ref Test Analysis Performed At [facility] Range Method Time Signature Specimen Throat [facility] LAB Rapid Strep A NEGATIVE: No Group A strepto coccal antigen detected by immunoassay, await GRABILL Screen culture report. [facility] LAB Micro Report FINAL 06/01/2013 [facility] LAB Specimen Anatomical Collection Method Collection Time Receive d Time (Source) Location / / Volume Laterality Specimen from 06/01/2013 8:17 PM 06/01/19 14 8:27 throat [facility] PM [facility] (specimen) Shon Patel MD LAB - MICRO GENERAL ORDERABL ES Performing Organization Address City/State/ZIP Code Phon e Number [facility] [address] [place], [place] [address] [facility] documented in this encounter Visit Diagnoses Diagnosis Acute pharyngitis - Primary documented in this encounter Administered Medications Inactive Administered Medications - up to 3 most recent administrations Medication Order MAR Action Action Date Dose Rate Site dexamethasone (DECADRON) tablet 12 Given 06/01/2013 8:39 PM [facility] 12 mg mg 12 mg, Oral, ONCE, On Fri06/01/13 at 2044, For 1 dose documented in this encounter Active and Recently Administered Medications Times are shown in [facility]. Scheduled Medication Order 05/30/2013 05/31/2013 06/01/2013 dexamethasone (DECADRON) tablet 12 mg (COMPLETED) 2038 (Given - Provider: Lindsay Gregorio RN) 12 mg, Oral, ONCE, Fri06/01/13 at 5, For 1 dose documented in this encounter Care Teams Medical Pathology Teacher Relationship Specialty Start Date End Date Jamin Silva MD PCP - General Family Medicine - Sports 06/01/13 Medicine documented as of this encounter
--- OUTSIDE RECORDS SUMMARY | 2022-01-21 15:51 | XMS_ITS | Encounter Summary ---
:1980 Author Organization [place] Address [facility] [place] [address] Care Team Providers Name Role Phone Jamin Silva MD Primary Care Provider Reason for Visit Reason Comments Abdominal Pain Encounter Details Date Type Department Care Team Description 02/01/2015 Emergency [facility] Roberto Carlos Escobedo C hronic abdominal pain; [facility] Emergency Dep t PID (acute pelvic inflammatory disease); [address] [facility] Bacterial vaginosis [facility] [phone] [address] [facility] [phone] [place], [place] [address] (Wo rk) Social History [...] documented in this encounter Discharge Instructions Discharge InstructionsRoberto Carlos Escobedo MD - 02/01/2015 11:41 AM CDT Discharge [...] directed by your doctor today. Before using [id number] medications, ask your doctor and make sure [...] sent through Care Everywhere. PELVIC INFLAMMATORY DISEASE (SINHALA)VAGINITIS, BACTERIAL (SINHALA)documented in this encounter Medications at Time of [...] reports having an a ppointment with her car framer in a week, but is in severe [...] and the provider's statements to me. 02/01/2015 [facility] EMERGENCY DEPARTMENT Roberto Carlos Escobedo MD 02/01/15 [...] athologist Signature HCG Qual Urine Negative NEG [facility] Specimen Anatomical Collection Method Collection Time Receive d Time (Source) Location / / Volume Laterality Urine specimen URINE SPECIMEN 02/01/2015 12:15 015 (specimen) OBTAINED BY CLEAN PM CDT 12:27 PM C DT CATCH PROCEDURE / Unknown Roberto Carlos Escobedo MD LAB - URINE ORDERABLES Performing Organization Address City/[facility]/ZIP [facility] Phon e Number M [facility] [address], [place] [address] [facility] [address] [place], [place] [address] [place] [address] (ABNORMAL) Routine UA with microscopic (02/01/2015 12:15 PM CDT) [facility] Method Time Signature Color Urine Light Yellow [facility] Appearance Urine Clear [facility] Glucose Urine Negative NEG mg/dL [facility] Bilirubin Urine Negative NEG [facility] Ketones Urine Negative NEG mg/dL [facility] Specific [place] 1.016 1.003 - [place] Urine 1.035 [facility] Blood Urine Negative NEG [facility] pH Urine 6.0 5.0 - 7.0 [place] pH [facility] Protein Albumin Negative NEG mg/dL [facility] Urobilinogen Normal 0.0 - 2.0 [place] mg/dL mg/dL [facility] Nitrite Urine Negative NEG [facility] Leukocyte Negative NEG [place] Esterase Urine [facility] Source Midstream [facility] WBC Urine 0 0 - 2 [place] /HPF [facility] RBC Urine 1 0 - 2 [place] /HPF [facility] Squamous 1 0 - 1 [place] Epithelial /HPF /HPF [facility] Mucous Urine Present (A) NEG /LPF [facility] Specimen Anatomical Collection Method Collection Time Receive d Time (Source) Location / / Volume Laterality Urine specimen URINE SPECIMEN 02/01/2015 12:15 015 (specimen) OBTAINED BY CLEAN PM CDT 12:27 PM C DT CATCH PROCEDURE / Unknown Roberto Carlos Escobedo MD LAB - URINE ORDERABLES Performing Organization Address City/[facility] Phon e Number M [facility] [address], [place] [address] [facility] [address] [place] [phone], [facility] [phone] Chlamydia trachomatis PCR (02/01/2015 11:38 AM CDT) Component Value Ref Test Analysis Performed At [facility] Method Time Signature Specimen Vagina [facility] Chlamydia Negative NEG [facility] Trachomatis Negative for C. trachomatis rRNA by product tester fiberglass mediated amplification. [facility] PCR A negative result by transc [...] MICRO GENERAL ORDERABL ES Performing Organization Address City/[facility]/ZIP Code Phon e Number [address] [phone], [facility] [phone] Neisseria gonorrhoeae PCR (02/01/2015 11:38 AM CDT) Component Value Ref Test Analysis Performed At [facility] Method Time Signature Specimen Vagina [facility] N Gonorrhea Negative NEG [facility] PCR Negative for N. gonorrhoeae rRNA by transcripti on mediated amplification. [facility] A negative result by transc ription [...] MICRO GENERAL ORDERABL ES Performing Organization Address City/[facility]/ZIP Code Phon e Number [phone] [place] [address] [address] [phone], [facility] [phone] (ABNORMAL) Wet prep (02/01/2015 11:38 AM CDT) Patholo gist Method Time Signature Specimen Vagina [place] Description [facility] Wet Prep No Trichomonas seen [place] Clue cells seen [facility] No yeast seen [facility] Few WBC'S seen (A) Micro Report FINAL [place] Status 02/01/2015 [facility] Specimen Anatomical Collection Method Collection Time Receive d Time (Source) Location / / Volume Laterality Specimen from 02/01/2015 11:38 02/01/2015 vagina AM CDT 11:39 AM CDT (specimen) Roberto Carlos Escobedo MD LAB - MICRO GENERAL ORDERABL ES Performing Organization Address City/State/ZIP Code Phon e Number M [place] [address] [place] [address] [facility] [address] [place], [place] [address] [place] [address] documented in this encounter Visit Diagnoses Diagnosis [...] grams documented in this encounter Care Teams Farm Loan Representative Relationship Specialty Start Date End Date Jamin Silva MD PCP - General Family Medicine - Sports 06/01/13 Medicine documented as of this encounter
--- OUTSIDE RECORDS SUMMARY | 2022-01-21 15:51 | XMS_ITS | Encounter Summary ---
:1980 Author Organization [place] Address [facility] [place] [address] Care Team Providers Name Role Phone Jamin Silva MD Primary Care Provider Reason for Visit Reason Comments Abdominal Pain Encounter Details Date Type Department Care Team Description 02/18/2014 - Emergency [facility] Lindsay Lu Ab dominal pain, left 02/19/2014 [place] Emergency lower quadrant Dept SKIN REJUVENATION (Primary Dx) [address], [place] [address] [address] [facility] [id number] [facility] [phone] [place] [id number] (Wo rk) Social History Tobacco Use Types Packs/Day Years Used Date Smoking Tobacco: Every Day Cigarettes 0.3 Alcohol Use Standard Drinks/Week Comments No 0 (1 standard drink = 0.6 oz pure alcoho l) Sex Assigned at Date Recorded Not on file documented as of this encounter Last Filed Vital Signs Vital Sign Reading Time Taken Comments Blood Pressure 115/78 02/19/2014 12:03 AM DIRECT SERVICE PROFESSIONAL Pulse 79 02/19/2014 12:03 AM DIRECT SERVICE PROFESSIONAL Temperature 36.8 ??C (98.2 ??F) 02/18/2014 8:16 PM DIRECT SERVICE PROFESSIONAL Respiratory Rate 18 02/18/2014 8:16 PM DIRECT SERVICE PROFESSIONAL Oxygen Saturation 98% 02/19/2014 12:03 AM DIRECT SERVICE PROFESSIONAL Inhaled Oxygen Concentration - - Weight 77.6 kg (171 lb) 02/18/2014 8:16 PM DIRECT SERVICE PROFESSIONAL Height - - Body Mass Index - - documented in this encounter Discharge Instructions Discharge InstructionsLindsay Lu MD - 02/18/2014 11:38 PM DIRECT SERVICE PROFESSIONAL Discharge Instructions Abdominal Pain Abdominal pain can [...] directed by your doctor today. Before using [id number] medications, ask your doctor and make sure [...] contain Tylenol?? (acetaminophen), including Vicodin??, Tylenol #3??, Raton??, Lortab??, and Percocet??. You should not take [...] if there is anything that worries you. CT SERVICE PROFESSIONAL documented in this encounter Medications at Time [...] time. She has not followed up with PETROLEUM PRODUCTION ENGINEER since discharge from the ED. Allergies: NKDA [...] pain, although has not followed up with botany technician. Patient's pain improved with interventions in the ED. I did discuss our chronicand recurrent pain policy with the patient. Patient did have a US that showed a collapsed 1 cm cyst.There is no evidence of torsion, mass, diverticulitis, or other abnormalities. Bloodwork, UA and wetprep were negative. I will have them follow up with botany technician in the next 3 days and return with worsening pain, vomiting or fever. Diagnosis: 1. Left lower quadrant abdominal pain. Bimal Miranda, am serving as a scribe on 02/18/2014 at 9:02 PM to personally document services performed by Dr. Lu, Lindsay Mcdonough MD based on my observations and the provider's statements to me. Bimal Calderón 02/18/2014 [facility] EMERGENCY DEPARTMENT Lindsay Lu MD 02/19/[address] SERVICE PROFESSIONAL Floridalma Rivas, RN - 02/18/2014 8:15 PM CST Alert and oriented x 3 airway,breathing and circulation intact LLQ abd pain, has had ovarian cyst since feb 08 , pain worse yesterday, nausea CT SERVICE PROFESSIONAL documented in this encounter Plan of Treatment Not on filedocumented as of this encounter Procedures Procedure Name Priority Date/Time Associated Comments Diagnosis US PELVIS COMPLETE W STAT 02/18/2014 10:45 Res ults for this TRANSVAGINAL AND PM DIRECT SERVICE PROFESSIONAL procedure a re in DOPPLER LIMITED the results section. HCG QUALITATIVE URINE STAT 02/18/2014 9:53 PM Results for this DIRECT SERVICE PROFESSIONAL procedure are i n the results section. ROUTINE UA WITH STAT 02/18/2014 9:53 PM Result s for this MICROSCOPIC DIRECT SERVICE PROFESSIONAL procedure are i n the results section. WET PREPARATION STAT 02/18/2014 9:31 PM Result s for this DIRECT SERVICE PROFESSIONAL procedure are i n the results section. NEISSERIA GONORRHOEAE STAT 02/18/2014 9:31 PM Abdominal Renny n, Results for this PCR DIRECT SERVICE PROFESSIONAL Left Lower Quadrant procedur e are in the results section. CHLAMYDIA TRACHOMATIS STAT 02/18/2014 9:31 PM Abdominal Renny n, Results for this PCR DIRECT SERVICE PROFESSIONAL Left Lower Quadrant procedur e are in the results section. CBC WITH PLATELETS & STAT 02/18/2014 9:11 PM R esults for this DIFFERENTIAL DIRECT SERVICE PROFESSIONAL procedure are i n the results section. BASIC METABOLIC PANEL STAT 02/18/2014 9:11 PM Results for this DIRECT SERVICE PROFESSIONAL procedure are i n the results section. documented in this encounter Results US Pelvic Complete w Transvaginal & Abd/Pel Duplex Limited (02/18/2014 10:45 PM DIRECT SERVICE PROFESSIONAL) Anatomical Region Laterality Modality Abdomen/Pelvis Ultrasound Specimen (Source) Anatomical Location Collection Method / Collectio n Time Received Time / Laterality Volume Impressions 02/18/2014 11:08 PM DIRECT SERVICE PROFESSIONAL IMPRESSION: 1. No evidence for ovarian torsion. Norm al blood flow is seen in both ovaries. 2. Collapsing follicle left ovary. 3. Small amount of fluid in the endometr ial cavity. BETSY MILLS MD Narrative 02/18/2014 11:08 PM DIRECT SERVICE PROFESSIONAL US PELVIS COMPLETE W TRANSVAGINAL AND DOPPLER [...] ORDERABLES HCG qualitative urine (02/18/2014 9:53 PM DIRECT SERVICE PROFESSIONAL) P athologist Signature HCG Qual Urine Negative NEG [facility] LAB Specimen Anatomical Collection Method Collection Time Receive d Time (Source) Location / / Volume Laterality Urine specimen URINE SPECIMEN 02/18/2014 9:53 PM 02/18 (specimen) OBTAINED BY CLEAN DIRECT SERVICE PROFESSIONAL 10:[address] CATCH PROCEDURE / Unknown Lindsay Lu MD LAB - URINE ORDERABLES Performing Organization Address City/State/ZIP Code Phon e Number M [facility] [address] [place], [place] [address] [facility] LAB (ABNORMAL) UA with Microscopic (02/18/2014 9:53 PM DIRECT SERVICE PROFESSIONAL) Patholo gist Method Time Signature Color Urine Yellow [facility] LAB Appearance Urine Clear [facility] LAB Glucose Urine Negative NEG mg/dL [facility] LAB Bilirubin Urine Negative NEG [facility] LAB Ketones Urine Negative NEG mg/dL [facility] LAB Specific [place] 1.016 1.003 - [place] Urine 1.035 [facility] LAB Blood Urine Negative NEG [facility] LAB pH Urine 6.0 5.0 - 7.0 [place] pH [facility] LAB Protein Albumin Negative NEG mg/dL [facility] LAB Urobilinogen Normal 0.0 - 2.0 [place] mg/dL mg/dL [facility] LAB Nitrite Urine Negative NEG [facility] LAB Leukocyte Negative NEG [place] Esterase Urine [facility] LAB Source Midstream [facility] LAB WBC Urine 0 0 - 2 [place] /HPF [facility] LAB RBC Urine <1 0 - 2 [place] /HPF [facility] LAB Squamous <1 0 - 1 [place] Epithelial /HPF /HPF [facility] LAB Mucous Urine Present (A) NEG /LPF [facility] LAB Specimen Anatomical Collection Method Collection Time Receive d Time (Source) Location / / Volume Laterality Urine specimen URINE SPECIMEN 02/18/2014 9:53 PM 02/18 (specimen) OBTAINED BY CLEAN DIRECT SERVICE PROFESSIONAL 10:[address] CATCH PROCEDURE / Unknown Lindsay Lu MD LAB - URINE ORDERABLES Performing Organization Address City/State/ZIP Code Phon e Number M [facility] [address] [place], [place] [address] [facility] LAB Neisseria gonorrhoea PCR (02/18/2014 9:31 PM DIRECT SERVICE PROFESSIONAL) Component Value Ref Test Analysis Performed At [facility] Method Time Signature Specimen Vagina [facility] LAB N Gonorrhea Negative NEG [facility] [...] swab 02/18/2014 9:31 PM 4 9:35 (specimen) DIRECT SERVICE PROFESSIONAL PM DIRECT SERVICE PROFESSIONAL Lindsay Lu MD LAB - MICRO GENERAL ORDERABL ES Performing Organization Address City/[facility] Code Phon e Number [address] LAB [facility] MICROBIOLOGY Chlamydia trachomatis PCR (02/18/2014 9:31 PM DIRECT SERVICE PROFESSIONAL) Component Value Ref Test Analysis Performed At [facility] Specimen Vagina [facility] LAB Chlamydia Negative NEG [facility] Trachomatis Negative for C. trachomatis rRNA by dev ops engineer mediated amplification. MICROBIOLOGY PCR A negative result [...] swab 02/18/2014 9:31 PM 4 9:35 (specimen) DIRECT SERVICE PROFESSIONAL PM DIRECT SERVICE PROFESSIONAL Lindsay Lu MD LAB - MICRO GENERAL ORDERABL ES Performing Organization Address City/[facility] Phon e Number [address] LAB [facility] MICROBIOLOGY Wet prep (02/18/2014 9:31 PM DIRECT SERVICE PROFESSIONAL) [facility] Method Time Signature Specimen Vagina [facility] LAB Wet Prep Few PMNs seen [place] No clue cells seen [facility] No yeast seen [facility] LAB No Trichomonas seen Micro Report FINAL [place] Status 02/18/2014 [facility] LAB Specimen Anatomical Collection Method Collection Time Receive d Time (Source) Location / / Volume Laterality Vaginal swab 02/18/2014 9:31 PM 4 9:35 (specimen) DIRECT SERVICE PROFESSIONAL PM DIRECT SERVICE PROFESSIONAL Lindsay Lu MD LAB - MICRO GENERAL ORDERABL ES Performing Organization Address City/[facility]/ZIP Code Phon e Number M [place] [address] [address] [place] [place], [place] [address] H[facility]PITAL [facility] LAB (ABNORMAL) Basic metabolic panel (02/18/2014 9:11 PM DIRECT SERVICE PROFESSIONAL) athologist Signature Sodium 139 133 - 144 [place] mmol/L [facility] LAB Potassium 3.7 3.4 - 5.3 [place] mmol/L [facility] LAB Chloride 109 94 - 109 [place] mmol/L [facility] LAB Carbon Dioxide 24 20 - 32 [place] mmol/L [facility] LAB Anion Gap 6 3 - 14 [place] mmol/L [facility] LAB Glucose 82 70 - 99 [place] mg/dL [facility] LAB Comment: Effective 11/10/2013, the reference range for this assay has changed to reflect new instrumentation/methodology. Urea Nitrogen 13 7 - 30 mg/dL [facility] LAB Comment: Effective 11/10/2013, the reference range for this assay has changed to reflect new instrumentation/methodology. Creatinine 0.85 0.52 - 1.04 mg/dL [facility] LAB GFR Estimate 77 >60 mL/min/1.7m2 [facility] LAB Comment: Non GFR Calc GFR Estimate If Black >90 >60 mL/min/1.7m2 F [facility] GFR Calc [facility] LAB Calcium 8.1 (L) 8.5 - 10.1 mg/dL [facility] LAB Comment: Effective 11/10/2013, the reference range for this assay has changed to reflect new instrumentation/methodology. Specimen Anatomical Collection Method Collection Time Receive d Time (Source) Location / / Volume Laterality Blood specimen 02/18/2014 9:11 PM 014 9:12 (specimen) DIRECT SERVICE PROFESSIONAL PM DIRECT SERVICE PROFESSIONAL Lindsay Lu MD LAB - BLOOD ORDERABLES Performing Organization Address City/State/ZIP Code Phon e Number M [facility] [address] [place], [place] [address] [facility] LAB CBC with platelets differential (02/18/2014 9:11 PM DIRECT SERVICE PROFESSIONAL) [facility] gist Method Time Signature WBC 7.6 4.0 - [place] 11.[address] LAB RBC Count 4.26 3.8 - 5.2 [place] 10e12L [facility] LAB Hemoglobin 12.7 11.7 - [place] 15.7 g/dL [facility] LAB Hematocrit 38.0 35.0 - [place] 47.0 % [facility] LAB MCV 89 78 - 100 [place] fl [facility] LAB MCH 29.8 26.5 - [place] 33.0 pg [facility] LAB MCHC 33.4 31.5 - [place] 36.5 g/dL [facility] LAB RDW 13.4 10.0 - [place] 15.0 % [facility] LAB Platelet Count 200 150 - [address] LAB Diff Method Automated [facility] LAB % Neutrophils 68.0 % [facility] LAB % Lymphocytes 22.2 % [facility] LAB % Monocytes 8.3 % [facility] LAB % Eosinophils 1.3 % [facility] LAB % Basophils 0.1 % [facility] LAB % Immature 0.1 % [place] Granulocytes [facility] LAB Absolute 5.2 1.6 - 8.3 [place] Neutrophil [facility] Absolute 1.7 0.8 - 5.3 [place] Lymphocytes [address] LAB Absolute 0.6 0.0 - 1.3 [place] Monocytes [address] [place] [address] LAB Absolute 0.1 0.0 - 0.7 [place] Eosinophils [address] [place] [address] LAB Absolute 0.0 0.0 - 0.2 [place] Basophils [address] [place] [address] LAB Abs Immature 0.0 0 - 0.4 [place] Granulocytes [address] [place] [address] LAB Specimen Anatomical Collection Method Collection Time Receive d Time (Source) Location / / Volume Laterality Blood specimen 02/18/2014 9:11 PM 014 9:12 (specimen) DIRECT SERVICE PROFESSIONAL PM DIRECT SERVICE PROFESSIONAL Lindsay Lu MD LAB - BLOOD ORDERABLES Performing Organization Address City/State/ZIP Code Phon e Number M [facility] [address] [place], [place] [address] [facility] LAB documented in this encounter Visit Diagnoses Diagnosis Abdominal pain, left lower quadrant - Pr imary documented in this encounter Administered Medications Inactive Administered Medications - up to 3 most recent administrations Medication Order MAR Action Action Date Dose Rate Site diphenhydrAMINE (BENADRYL) Given 02/18/2014 9:16 PM DIRECT SERVICE PROFESSIONAL 25 mg injection 25 mg 25 mg, Intravenous, ONCE, On Fri02/18/14 at 2107, For 1 dose ketorolac (TORADOL) injection 30 mg Given 02/18/2014 9:14 PM DIRECT SERVICE PROFESSIONAL 30 mg 30 mg, Intravenous, ONCE, On Fri02/18/14 at 2107, For 1 dose, Do not give within 6 hours of Ibuprofen. oxyCODONE-acetaminophen (PERCOCET) 5-325 Given 02/18/2014 10 :43 PM DIRECT SERVICE PROFESSIONAL 1 tablet MG per tablet 1 tablet [...] 1 0 mg Given 02/18/2014 9:18 PM DIRECT SERVICE PROFESSIONAL 10 mg 10 mg, Intravenous, ONCE, On Fri02/18/14 at 2107, For 1 dose sodium chloride 0.9 % BOLUS New Bag 02/18/2014 9:14 PM DIRECT SERVICE PROFESSIONAL 1,000 m Ls 1000 mL/hr 1,000 mL Intravenous, 1,000 mL, ONCE, at 1,000 mL/hr, Administer over 1 Hours, On Fri02/18/14 at 2107, For 1 dose documented in this encounter Active and Recently Administered Medications Times are shown in DIRECT SERVICE PROFESSIONAL. Scheduled Medication Order 02/17/2014 02/18/2014 02/19/2014 diphenhydrAMINE (BENADRYL) injection 25 mg (COMPLETED) 2115 (Given - Provider: Susan Izaguirre RN) 25 mg, Intravenous, ONCE, Fri02/18/14 at 2106, For 1 dose ketorolac (TORADOL) injection 30 mg (COMPLETED) 2113 (Given - Provider: Susan Izaguirre RN) 30 mg, Intravenous, ONCE, Fri02/18/14 at 210, For 1 dose, Do not give within [...] RN) 10 mg, Intravenous, ONCE, Fri02/18/14 at 210, For 1 dose sodium chloride 0.9 % BOLUS 1,000 mL (COMPLETED) 2113 (New Bag - Provider: Susan Izaguirre RN)2343 (Stopped - Provider: Brittney Feldman, ANGE) Intravenous, 1,000 mL, ONCE, at 1,000 mL /hr, Administer over 1 Hours, On Fri02/18/14 at 2107, For 1 dose documented in this encounter Care Teams Doctor Of Nurse Anesthesia Relationship Specialty Start Date End Date Jamin Silva MD PCP - General Family Medicine - Sports 06/01/13 Medicine documented as of this encounter
--- OUTSIDE RECORDS SUMMARY | 2022-01-21 15:51 | XMS_ITS | Encounter Summary ---
:1980 Author Organization [place] Address [address] [place] [address] Care Team Providers Name Role Phone Jamin Silva MD Primary Care Provider Reason for Visit Reason Comments Abdominal Pain Encounter Details Date Type Department Care Team Description 02/12/2014 Emergency [facility] Ruth Pacheco Abdom inal pain, left lower quadrant (Primary Dx); [facility] Emergency Dep t MD Colette [facility] [address] [facility] [phone] 0490 [facility] [phone] [place], [place] [address] (Wo rk) Social History [...] directed by your doctor today. Before using lytt-xvg-qbhrtoa medications, ask your doctor and make sure [...] contain Tylenol?? (acetaminophen), including Vicodin??, Tylenol #3??, Sherman??, Lortab??, and Percocet??. You should not take [...] was otherwise unremarkable. She was discharged with Sherman forpain, Zofran for nausea, and instructed to follow up with her PMD. The patient states that she was not able to see her doctor at [facility] until 02/15/14. Meanwhile, she has experienced intermittent pain in the left lower quadrant which has worsened since her last visit. It is a sharp, stabbing pain that radiates to the left lower back, worse with walking. She has tried Sherman twice without relief and took ibuprofen 800 [...] concerns. Review of Past Medical Records: 02/08/14, [facility] ED CT abdomen and pelvis w/o contrast: [...] through Care Everywhere, as well as the [place] Prescription Monitoring Program. On 01/24/14, she signed a long- term controlled substance agreement for chronic chest, bilateral neck and back pain at [facility]. She has received 13 [...] to me. 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 ROBBIE ZALDIVAR MD Ruth Pacheco MD IM US ORDERABLES HCG qualitative urine (02/12/2014 2:44 PM CDT) P athologist Signature HCG Qual Urine Negative NEG [facility] Specimen Anatomical Collection Method Collection Time Receive d Time (Source) Location / / Volume Laterality Urine specimen URINE SPECIMEN 02/12/2014 2:44 PM 02/12 2:51 (specimen) OBTAINED BY CLEAN CDT PM CDT CATCH PROCEDURE / Unknown Ruth Pacheco MD LAB - URINE ORDERABLES Performing Organization Address City/State/ZIP Code Phon e Number M [facility] [address] [place], [place] [address] [facility] (ABNORMAL) UA with Microscopic (02/12/2014 2:44 PM CDT) [facility] Method Time Signature Color Urine Straw [facility] Appearance Urine Clear [facility] Glucose Urine Negative NEG mg/dL [facility] Bilirubin Urine Negative NEG [facility] Ketones Urine Negative NEG mg/dL [facility] Specific [place] 1.005 1.003 - [place] Urine 1.035 [facility] Blood Urine Negative NEG [facility] pH Urine 6.5 5.0 - 7.0 [place] pH [facility] Protein Albumin Negative NEG mg/dL [place] Urine [facility] Urobilinogen Normal 0.0 - 2.0 [place] mg/dL mg/dL [facility] Nitrite Urine Negative NEG [facility] Leukocyte Negative NEG [place] Esterase Urine [facility] Source Midstream [place] Urine [facility] WBC Urine 1 0 - 2 [place] [facility] RBC Urine <1 0 - 2 [place] /[facility] Bacteria Urine Few (A) NEG /HPF [facility] Squamous <1 0 - 1 [place] Epithelial /HPF /HPF [facility] Mucous Urine Present (A) NEG /LPF [facility] Specimen Anatomical Collection Method Collection Time Receive d Time (Source) Location / / Volume Laterality Urine specimen URINE SPECIMEN 02/12/2014 2:44 PM 02/12 2:51 (specimen) OBTAINED BY CLEAN CDT PM CDT CATCH PROCEDURE / Unknown Ruth Pacheco MD LAB - URINE ORDERABLES Performing Organization Address City/State/ZIP Code Phon e Number M [place] [address] [place] [address] [facility] CBC with platelets differential (02/12/2014 2:13 PM CDT) [facility] gist Method Time Signature WBC 7.0 4.0 - [place] 11.0 [facility] 10e9/[facility] RBC Count 4.60 3.8 - 5.2 [place] 10e12/L [facility] Hemoglobin 13.6 11.7 - [place] 15.7 g/dL [facility] Hematocrit 40.4 35.0 - [facility] 47.0 % [facility] MCV 88 78 - 100 [place] fl [facility] MCH 29.6 26.5 - [facility] 33.0 pg [facility] MCHC 33.7 31.5 - [place] 36.5 g/dL [facility] RDW 13.0 10.0 - [place] 15.0 % [facility] Platelet Count 204 150 - 450 [place] 10e9/L [facility] Diff Method Automated [facility] % Neutrophils 71.0 % [facility] % Lymphocytes 22.0 % [facility] % Monocytes 6.1 % [facility] % Eosinophils 0.7 % [facility] % Basophils 0.1 % [facility] % Immature 0.1 % [place] Granulocytes [facility] Absolute 5.0 1.6 - 8.3 [place] Neutrophil 10e9/L [facility] Absolute 1.6 0.8 - 5.3 [place] Lymphocytes 10e9L [facility] Absolute 0.4 0.0 - 1.3 [place] Monocytes 10e9/L [facility] Absolute 0.1 0.0 - 0.7 [place] Eosinophils 10e9L [facility] Absolute 0.0 0.0 - 0.2 [place] Basophils 10eL [facility] Abs Immature 0.0 0 - 0.4 [place] Granulocytes [address] [place] [address] LAB Specimen Anatomical Collection Method Collection Time Receive d Time (Source) Location / / Volume Laterality Blood specimen 02/12/2014 2:13 PM 014 2:22 (specimen) CDT PM CDT Ruth Pacheco MD LAB - BLOOD ORDERABLES Performing Organization Address City/State/ZIP Code [facility] e Number [address] [address] [facility] Neisseria gonorrhoea PCR (02/12/2014 2:00 PM CDT) Component Value Ref Test Analysis Performed At [facility] Range Method Time Signature Specimen Pelvic [facility] N Gonorrhea Negative NEG [...] Organization Address City/State/ZIP Code Phon e Number [facility] [address] [place] [address] [facility] MICROBIOLOGY Chlamydia trachomatis PCR (02/12/2014 2:00 PM CDT) Component Value Ref Test Analysis Performed At [facility] [facility] Range Method Time Signature Specimen Pelvic [facility] Chlamydia Negative NEG [facility] Trachomatis Negative for C. trachomatis rRNA by middle school guidance counselor mediated amplification. MICROBIOLOGY PCR A negative result [...] MICRO GENERAL ORDERAB LES Performing Organization Address City/[facility]/ZIP Code Phon e Number [facility] [address] [place] [address] [facility] MICROBIOLOGY Wet prep (02/12/2014 2:00 PM CDT) [facility] Method Time Signature Specimen Pelvic [facility] Wet Prep No clue cells seen [place] No Trichomonas seen [place] No yeast seen [facility]OSPITAL LAB Few WBC'S seen Micro Report FINAL [place] Status 02/12/2014 [facility] Specimen Anatomical Collection Method Collection Time Receive d Time (Source) Location / / Volume Laterality Vaginal swab 02/12/2014 2:00 PM 4 2:06 (specimen) CDT PM CDT Ruth Pacheco MD LAB - MICRO GENERAL ORDERAB LES Performing Organization Address City/State/ZIP Code Phon e Number [place] [address], [place] [address] [facility] documented in this encounter Visit Diagnoses [...] (COMPLETED) 1417 (Given - Provider: Krysta Rivers, RN) 4 mg, Intravenous, ONCE, for 2 Minutes, [...] pain documented in this encounter Care Teams Periodontist Relationship Specialty Start Date End Date Jamin Silva MD PCP - General Family Medicine - Sports 06/01/13 Medicine documented as of this encounter
--- OUTSIDE RECORDS SUMMARY | 2022-01-21 15:51 | XMS_ITS | Encounter Summary ---
:1980 Author Organization [place] Address Critical access [facility] [place] [address] Care Team Providers Name Role Phone Ratna Mackey MD Primary Care Provider Reason for Visit Reason Comments Abdominal Pain Encounter Details Date Type Department Care Team Description 03/07/2015 Emergency [facility] Luis Villatoro Ch ronic pelvic pain [facility] t MD in female [address] [facility] EMERGENCY PHYSIC[place]ANS [place], [place] [phone] [address] [phone] [address] [place] [address] (Wo rk) Social History Tobacco Use Types Packs/Day Years Used Date Smoking Tobacco: Some Days Cigarettes 0.3 Alcohol Use Standard Drinks/Week Comments No 0 (1 standard drink = 0.6 oz pure alcoho l) Sex Assigned at Date Recorded Not on file documented as of this encounter Last Filed Vital Signs Vital Sign Reading Time Taken Comments Blood Pressure 117/92 03/07/2015 3:54 PM HYDRAULIC PUNCH PRESS OPERATOR Pulse 75 03/07/2015 3:54 PM HYDRAULIC PUNCH PRESS OPERATOR Temperature 37.2 ??C (98.9 ??F) 03/07/2015 3:54 PM HYDRAULIC PUNCH PRESS OPERATOR Respiratory Rate 20 03/07/2015 3:54 PM HYDRAULIC PUNCH PRESS OPERATOR Oxygen Saturation 99% 03/07/2015 3:54 PM HYDRAULIC PUNCH PRESS OPERATOR Inhaled Oxygen Concentration - - Weight 77.6 kg (171 lb) 03/07/2015 3:54 PM HYDRAULIC PUNCH PRESS OPERATOR Height 167.6 cm (5' 6) 03/07/2015 3:54 PM HYDRAULIC PUNCH PRESS OPERATOR Body Mass Index 27.6 03/07/2015 3:54 PM HYDRAULIC PUNCH PRESS OPERATOR documented in this encounter Discharge Instructions Discharge InstructionsTrLuis ames MD - 03/07/2015 4:15 PM CST Discharge [...] if there is anything that worries you. AULIC PUNCH PRESS OPERATOR documented in this encounter Medications at [...] and she was last seen here at [facility] one month ago at which time [...] 3, Mucous present HCG qual: negative Interventions: 161 - Oxycodone-Acetaminophen 5-325 mg per tablet PO x 2 Emergency Department Course: Nursing notes and vitals reviewed. I reviewed the patient's chart in [facility] [employer]. 161 - I performed an exam of [...] to document services personally performed by Luis Vilaltoro MD, based on my observations and the provider's statements to me. [facility] EMERGENCY DEPARTMENT Luis Villatoro MD 03/08/15 1257 AULIC PUNCH PRESS OPERATOR Natalia Coon RN - 03/07/2015 3:52 PM CST Lower left abdominal pain that began about 1 year ago. Nauseated but no vomiting. Ibuprofen taken at9am. Patient alert and oriented x3. Airway, breathing and circulation intact. AULIC PUNCH PRESS OPERATOR documented in this encounter Plan of Treatment Not on filedocumented as of this encounter Procedures Procedure Name Priority Date/Time Associated Comments Diagnosis HCG QUALITATIVE URINE STAT 03/07/2015 4:05 PM Chronic pelvi c pain Results for this HYDRAULIC PUNCH PRESS OPERATOR in female procedure are i n the results section. ROUTINE UA WITH STAT 03/07/2015 4:05 PM Chronic pelvic pain Results for this MICROSCOPIC HYDRAULIC PUNCH PRESS OPERATOR in female procedure are i n the results section. documented in this encounter Results HCG qualitative urine (03/07/2015 4:05 PM HYDRAULIC PUNCH PRESS OPERATOR) P athologist Signature HCG Qual Urine Negative NEG [facility] Specimen Anatomical Collection Method Collection Time Receive d Time (Source) Location / / Volume Laterality Urine specimen URINE SPECIMEN 03/07/2015 4:05 PM 03/07 4:14 (specimen) OBTAINED BY CLEAN HYDRAULIC PUNCH PRESS OPERATOR PM HYDRAULIC PUNCH PRESS OPERATOR CATCH PROCEDURE / Unknown Luis Villatoro MD LAB - URINE ORDERABLES Performing Organization Address City/State/ZIP Code Phon e Number [facility] [address] [place], [place] [address] [facility] [address] [place] [id number] [facility] [phone] (ABNORMAL) Routine UA with microscopic (03/07/2015 4:05 PM HYDRAULIC PUNCH PRESS OPERATOR) [facility] Method Time Signature Color Urine Light Yellow [facility] Appearance Urine Clear [facility] Glucose Urine Negative NEG mg/dL [facility] Bilirubin Urine Negative NEG [facility] Ketones Urine Negative NEG mg/dL [facility] Specific [place] 1.018 1.003 - [place] Urine 1.035 [facility] Blood Urine Negative NEG [facility] pH Urine 6.0 5.0 - 7.0 [facility] Protein Albumin Negative NEG mg/dL [facility] Urobilinogen Normal 0.0 - 2.0 [place] mg/dL mg/dL [facility] Nitrite Urine Negative NEG [facility] Leukocyte Small (A) NEG [place] Esterase Urine [facility] Source Midstream [facility] WBC Urine 1 0 - 2 [place] /HPF [facility] RBC Urine 1 0 - 2 [place] /HPF [facility] Bacteria Urine Few (A) NEG /HPF [facility] Squamous 3 (H) 0 - 1 [place] Epithelial /HPF /HPF [facility] Mucous Urine Present (A) NEG /LPF [facility] Specimen Anatomical Collection Method Collection Time Receive d Time (Source) Location / / Volume Laterality Urine specimen URINE SPECIMEN 03/07/2015 4:05 PM 03/07 4:14 (specimen) OBTAINED BY CLEAN HYDRAULIC PUNCH PRESS OPERATOR PM HYDRAULIC PUNCH PRESS OPERATOR CATCH PROCEDURE / Unknown Luis Villatoro MD LAB - URINE ORDERABLES Performing Organization Address City/State/ZIP Code Phon e Number M [facility] [address] [place], [place] [address] [facility] [address] [place], [place] [address] [phone] documented in this encounter Visit Diagnoses Diagnosis Chronic pelvic pain in female Unspecified symptom associated with fema le genital organs documented in this encounter Administered Medications Inactive Administered Medications - up to 3 most recent administrations Medication Order MAR Action Action Date Dose Rate Site oxyCODONE-acetaminophen Given 03/07/2015 4:17 PM HYDRAULIC PUNCH PRESS OPERATOR 2 tablets (PERCOCET) 5-325 MG per tablet 2 tablet 2 tablet, Oral, ONCE, On Fri03/07/15 at 1616, For 1 dose, Maximum acetaminophen dose from all sources= 75 mg/kg/day not to exceed 4 grams documented in this encounter Active and Recently Administered Medications Times are shown in HYDRAULIC PUNCH PRESS OPERATOR. Scheduled Medication Order 03/05/2015 03/06/2015 03/07/2015 oxyCODONE-acetaminophen (PERCOCET) 5-325 MG per tablet 2 tablet (COMPLETED) 1617 (Given - Provider: Fadi Ledezma RN) 2 tablet, Oral, ONCE, Fri03/07/15 at 16 16, For 1 dose, Maximum acetaminophen dose from all sources= 75 mg/kg/day not to exceed 4 grams documented in this encounter Care Teams President [employer] Relationship Specialty Start Date End Date Ratna Mackey MD PCP - General Family Practice 03/07/15 12/29/20 [facility] [address] [facility] [place] [address] documented as of this encounter
--- OUTSIDE RECORDS SUMMARY | 2022-01-21 15:51 | XMS_ITS | Encounter Summary ---
:1980 Author Organization [place] Address [address] [place] [address] Care Team Providers Name Role Phone Jamin Silva MD Primary Care Provider Reason for Visit Reason Comments Flank Pain Encounter Details Date Type Department Care Team Description [facility]/08[facility]2014 [facility], left [facility] t lower quadrant [address] EMERGENCY PHYSICIANS (Primary Dx) [facility] [phone] [facility] [phone] [place], [place] [address] (Wo rk) Social History [...] directed by your doctor today. Before using yptx-hxe-eodarae medications, ask your doctor and make sure [...] contain Tylenol?? (acetaminophen), including Vicodin??, Tylenol #3??, Orient??, Lortab??, and Percocet??. 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 Review of Systems Constitutional: Negative for fever [...] follow-up was reviewed. The patient was prescribed Orient and Zofran. Impression & Plan Medical Decision [...] I discharged the patient home with oral Orient for pain as well as Zofran as needed for nausea. Abdominal instructions, recheck in clinic tomorrow, return to the ER sooner if worse or new symptoms. Diagnosis: 1. (789.04) Abdominal pain, left lower quadrant IGloria, froilan serving as a scribe on 02/08/2014 at 10:39 AM to personally document services performed by Dr. Tate based on my observations and the provider's statements to me. 02/08/2014 [facility] EMERGENCY DEPARTMENT Mili Tate MD 02/08/14 1535 [...] UA with Microscopic (02/08/2014 11:15 AM CDT) [facility] gist Method Time Signature Color Urine Light Yellow [facility] Appearance Urine Clear [facility] Glucose Urine Negative NEG mg/dL [facility] Bilirubin Urine Negative NEG [facility] Ketones Urine Negative NEG mg/dL [facility] Specific [place] 1.010 1.003 - [place] Urine 1.035 [facility] Blood Urine Negative NEG [facility] pH Urine 6.5 5.0 - 7.0 [place] pH [facility] Protein Albumin Negative NEG mg/dL [facility] Urobilinogen Normal 0.0 - 2.0 [place] mg/dL mg/dL [facility] Nitrite Urine Negative NEG [facility] Leukocyte Negative NEG [place] Esterase Urine [facility] Source Midstream [place] Urine [facility] WBC Urine <1 0 - 2 [place] /HPF [facility] RBC Urine 0 0 - 2 [place] /HPF [facility] Bacteria Urine Few (A) NEG /HPF [facility] Squamous <1 0 - 1 [place] Epithelial /HPF /HPF [facility] Specimen Anatomical Collection Method Collection Time Receive d Time (Source) Location / / Volume Laterality Urine specimen URINE SPECIMEN 02/08/2014 11:15 014 (specimen) OBTAINED BY CLEAN AM CDT 11:20 AM C DT CATCH PROCEDURE / Unknown Mili Tate MD LAB - URINE ORDERABLES Performing Organization Address City/[facility]/ZIP Code Phon e Lionel Howell [facility] [address] [place], [place] [address] 7 [phone] [place] [address] LAB HCG QUALitative (02/08/2014 10:44 AM CDT) Patholo gist Method Time Signature HCG Qualitative Negative NEG [facility] LAB Specimen Anatomical Collection Method Collection Time Receive d Time (Source) Location / / Volume Laterality Blood specimen 02/08/2014 10:44 4 (specimen) AM CDT 10:53 AM CDT Mili Tate MD LAB - BLOOD ORDERABLES Performing Organization Address [facility] Phon e Lionel Howell [place] [address] [place], [place] [address] 7 [phone] [place] [address] LAB Basic metabolic panel (02/08/2014 10:44 AM CDT) P athologist Signature Sodium 138 133 - 144 [place] mmol/L [facility] Potassium 4.1 3.4 - 5.3 [place] mmolL [facility] Chloride 108 94 - 109 [place] mmol/L [facility] Carbon Dioxide 26 20 - 32 [place] mmol/L [facility] Anion Gap 4 3 - 14 [place] mmol/L [facility] Glucose 94 70 - 99 [place] mg/dL [facility] Comment: Effective 11/10/2013, the reference range for this assay has changed to reflect new instrumentation/methodology. Urea Nitrogen 13 7 - 30 mg/dL [facility] Comment: Effective 11/10/2013, the reference range for this assay has changed to reflect new instrumentation/methodology. Creatinine 0.84 0.52 - 1.04 mg/dL [facility] GFR Estimate 78 >60 mL/min/1.7m2 [facility] Comment: Non GFR Calc GFR Estimate If Black >90 >60 mL/min/1.7m2 F [facility] GFR Calc HOSP [facility] LAB Calcium 8.8 8.5 - 10.1 mg/dL [facility] Comment: Effective 11/10/2013, the reference range for this assay has changed to reflect new instrumentation/methodology. Specimen Anatomical Collection Method Collection Time Receive d Time (Source) Location / / Volume Laterality Blood specimen 02/08/2014 10:44 4 (specimen) AM CDT 10:53 AM CDT Mili Tate MD LAB - BLOOD ORDERABLES Performing Organization Address City/State/ZIP Code Phon e Number M [facility] [address] [place], [place] [address] [facility] CBC with platelets differential (02/08/2014 10:44 AM CDT) [facility] gist Method Time Signature WBC 5.7 4.0 - [place] 11.0 [facility] 10e9/[facility] RBC Count 4.42 3.8 - 5.2 [place] 10e12/L [facility] Hemoglobin 13.0 11.7 - [place] 15.7 g/dL [facility] Hematocrit 38.9 35.0 - [place] 47.0 % [facility] MCV 88 78 - 100 [place] fl [facility] MCH 29.4 26.5 - [place] 33.0 pg [facility] MCHC 33.4 31.5 - [place] 36.5 g/dL [facility] RDW 12.9 10.0 - [place] 15.0 % [facility] Platelet Count 214 150 - 450 [place] 10e9/L [facility] Diff Method Automated [facility] LAB % Neutrophils 62.8 % [facility] % Lymphocytes 25.0 % [facility] % Monocytes 9.9 % [facility] % Eosinophils 1.9 % [facility] % Basophils 0.2 % [facility] % Immature 0.2 % [place] Granulocytes [facility] Absolute 3.6 1.6 - 8.3 [place] Neutrophil 10e9/L [facility] Absolute 1.4 0.8 - 5.3 [place] Lymphocytes 10e9/L [facility] Absolute 0.6 0.0 - 1.3 [place] Monocytes [address] [place] [address] LAB Absolute 0.1 0.0 - 0.7 [place] Eosinophils [address] [place] [address] LAB Absolute 0.0 0.0 - 0.2 [place] Basophils [address] [place] [address] LAB Abs Immature 0.0 0 - 0.4 [place] Granulocytes [address] [place] [address] LAB Specimen Anatomical Collection Method Collection Time Receive d Time (Source) Location / / Volume Laterality Blood specimen 02/08/2014 10:44 4 (specimen) AM CDT 10:53 AM CDT Mili Tate MD LAB - BLOOD ORDERABLES Performing Organization Address City/State/ZIP Code Phon e Number M [place] [address] [place], [place] [address] [facility] documented in this [...] Kimberly Le RN)1125 (Given - Provider: Kimberly Le, ANGE)1210 (Given - Provider: Birgit Correia, ANGE) 0.5 [...] doses. documented in this encounter Care Teams Marketing Database Consultant Relationship Specialty Start Date End Date Jamin Silva MD PCP - General Family Medicine - Sports 06/01/13 Medicine documented as of this encounter
--- OUTSIDE RECORDS SUMMARY | 2022-01-21 15:51 | XMS_ITS | Encounter Summary ---
:1980 Author Organization [place] Address [facility] [place] [address] Care Team Providers Name Role Phone Jamin Silva MD Primary Care Provider Reason for Visit Reason Comments Abdominal Pain Encounter Details Date Type Department Care Team Description 06/07/2014 Emergency [facility] Quintin Benjamin Chronic pelvic pain in [facility] Emergency Dep ralph Nova MD female [address] [facility] [id number] [address] [facility] [phone] [place], [place] [address] (Wo rk) Social History [...] Comments Blood Pressure 134/81 06/07/2014 5:08 PM COUNTY AGENT Pulse 81 06/07/2014 5:08 PM COUNTY AGENT Temperature 36.9 ??C (98.5 ??F) 06/07/2014 2:54 PM COUNTY AGENT Respiratory Rate 16 06/07/2014 5:08 PM COUNTY AGENT Oxygen Saturation 99% 06/07/2014 5:08 PM COUNTY AGENT Inhaled Oxygen Concentration - - Weight - - Height - - Body Mass Index - - documented in this encounter Discharge Instructions Discharge InstructionsQuintin Castro MD - 06/07/2014 4:56 PM COUNTY AGENT Chronic Pain Resources *Many of the listed clinics will need a physician referral and medical records sent prior to making an appointment. Insuranceproviders often need to be called for acceptance. Clinic Location/Contact Information/Hours Information [facility] [address] [place], [place] [id number] Sub acute and chronic pain - interventional pain medicine available [facility] Twelfth Floor [address] [place] [address] M-TH: 7:30 am - 5:00 pm F: 7:30 am - 4:00 pm Sub acute and chronic pain - interventional pain medicine available [facility] Medical Pain Specialist Dr. Stephan Bojorquez [address] [facility], [address] [place], [place] [address] M-F: 8:00 am - 5:30 pm Acute and chronic pain management including medication management. [facility] Chronic Pain Dr. Valdo Fernandez [address] [place], [place] [address] M-F: 7:00 am - 4:30 pm Inpatient residential chronic pain program and outpatient clinic, focus on rehabilitative pain management. [facility] [address] [place] [address], [address] [place] [address] M-F: 8:00 am - 4:00 pm Specializing in interventional pain management including epidural injections and medication management. [facility] [address] [place], [place] [id number] M-TH: 8:00 am - 9:00 pm F: 8:00 am - 4:30 pm Integrative medicine services including massage therapy, reflexology, mind/bodytherapy, guided imagery, acupuncture, exercises physiology, healing scrum coach, and integrative nutrition. [facility] [address] [facility], [address] [place] [address] *Other [facility] Locations Available M-F: Depends on clinic Chronic, cancer and spinal pain syndromes - focus on interventions, rehabilitation, alternative medicine and behavioral health. Offers an outpatient four week chronic pain program, four hours daily, Friday through Friday. [facility] [address] [facility], [address] [place], [place] [address] M-F: 8:00 am - 5:00 pm Specializing [...] if there is anything that worries you. TY AGENT documented in this encounter Medications at Time [...] for alcohol use. OB: Dr. Guardado at [facility] Review of Systems Constitutional: Negative for fever [...] ibuprofen and percocet. On review of the [employer] literature, patient was recently given 15 percocet [...] provider's statements to me. Yissel Rodgers 06/07/2014 [facility] EMERGENCY DEPARTMENT Quintin Castro MD 06/13/14 0119 TY AGENT Raegan Llamas, RN - 06/07/2014 2:54 PM CST Abdomen pain since January of 2014. Seen by her OB yesterday and told she has endometriosis. Pain isworse today. TY AGENT documented in this encounter Plan of Treatment Not on filedocumented as of this encounter Procedures Procedure Name Priority Date/Time Associated Comments Diagnosis HCG QUALITATIVE URINE STAT 06/07/2014 3:29 PM Results for this COUNTY AGENT procedure are i n the results section. ROUTINE UA WITH STAT 06/07/2014 3:29 PM Result s for this MICROSCOPIC REFLEX TO COUNTY AGENT proced ure are in CULTURE the results section. documented in this encounter Results HCG qualitative urine (06/07/2014 3:29 PM COUNTY AGENT) P athologist Signature HCG Qual Urine Negative NEG [facility] Specimen Anatomical Collection Method Collection Time Receive d Time (Source) Location / / Volume Laterality Urine specimen URINE SPECIMEN 06/07/2014 3:29 PM 06/07 4:24 (specimen) OBTAINED BY CLEAN COUNTY AGENT PM COUNTY AGENT CATCH PROCEDURE / Unknown Quintin Castro MD LAB - URINE ORDERABLES Performing Organization Address City/State/ZIP Code Phon e Number M [facility] [address] [place] [address] [facility] [address] [place], [place] [address] UA with microscopic reflex to culture (06/07/2014 3:29 PM COUNTY AGENT) [facility] Method Time Signature Color Urine Straw [facility] Appearance Urine Clear [facility] Glucose Urine Negative NEG mg/dL [facility] Bilirubin Urine Negative NEG [facility] Ketones Urine Negative NEG mg/dL [facility] Specific [place] 1.007 1.003 - [place] Urine 1.035 [facility] Blood Urine Negative NEG [facility] pH Urine 5.0 5.0 - 7.0 [place] pH [facility] Protein Albumin Negative NEG mg/dL [facility] Urobilinogen Normal 0.0 - 2.0 [place] mg/dL mg/dL [facility] Nitrite Urine Negative NEG [facility] Leukocyte Negative NEG [place] Esterase Urine [facility] Source Midstream [facility] WBC Urine <1 0 - 2 [facility] RBC Urine <1 0 - 2 [facility] Squamous <1 0 - 1 [place] Epithelial /HPF /HPF [facility] Specimen Anatomical Collection Method Collection Time Receive d Time (Source) Location / / Volume Laterality Urine specimen URINE SPECIMEN 06/07/2014 3:29 PM 06/07 4:24 (specimen) OBTAINED BY CLEAN COUNTY AGENT PM COUNTY AGENT CATCH PROCEDURE / Unknown Quintin Castro MD LAB - URINE ORDERABLES Performing Organization Address City/State/ZIP Code Phon e Number M [place] [address] [place] [address] [place] [address] [address] [place] [phone] documented in this encounter Visit Diagnoses Diagnosis Chronic pelvic pain in female Unspecified symptom associated with fema le genital organs documented in this encounter Administered Medications Inactive Administered Medications - up to 3 most recent administrations Medication Order MAR Action Action Date Dose Rate Site ibuprofen (ADVIL,MOTRIN) tablet Given 06/07/2014 4:13 PM COUNTY AGENT 600 mg 600 mg 600 mg, Oral, ONCE, On Fri06/07/14 at 1611, For 1 dose oxyCODONE-acetaminophen (PERCOCET) 5-325 MG Given 05/16 4:13 PM COUNTY AGENT 1 tablet per tablet 1 tablet 1 tablet, Oral, ONCE, On Fri06/07/14 at 1611, For 1 dose, Maximum acetaminophen dose from all sources= 75 mg/kg/day not to exceed 4 grams documented in this encounter Active and Recently Administered Medications Times are shown in COUNTY AGENT. Scheduled Medication Order 06/05/2014 06/06/2014 06/07/2014 ibuprofen [...] grams documented in this encounter Care Teams Radiographer Angiogram Relationship Specialty Start Date End Date Jamin Silva MD PCP - General Family Medicine - Sports 06/01/13 Medicine documented as of this encounter
--- OUTSIDE RECORDS SUMMARY | 2022-01-21 15:51 | XMS_ITS | Encounter Summary ---
:1980 Author Organization [place] Address [address] [place] [address] Care Team Providers Name Role Phone Jamin Silva MD Primary Care Provider Reason for Visit Reason Comments Abdominal Pain LLQ pain since january Encounter Details Date Type Department Care Team Description 02/26/2014 Emergency [facility] Robbie Nelson Abdom inal pain, left [place] Emergency Dep ralph Johnson MD lower quadrant [address] [facility] (Primary Dx) [facility] [id number] [address] [phone] [address] [place], [place] [address] (Wo rk) Social History Tobacco Use Types Packs/Day Years Used Date Smoking Tobacco: Every Day Cigarettes 0.3 Alcohol Use Standard Drinks/Week Comments No 0 (1 standard drink = 0.6 oz pure alcoho l) Sex Assigned at Date Recorded Not on file documented as of this encounter Last Filed Vital Signs Vital Sign Reading Time Taken Comments Blood Pressure 102/71 02/26/2014 4:00 PM PRIMARY SUBSTANCE ABUSE COUNSELOR Pulse 77 02/26/2014 2:41 PM PRIMARY SUBSTANCE ABUSE COUNSELOR Temperature 36.5 ??C (97.7 ??F) 02/26/2014 2:41 PM PRIMARY SUBSTANCE ABUSE COUNSELOR Respiratory Rate 16 02/26/2014 2:41 PM PRIMARY SUBSTANCE ABUSE COUNSELOR Oxygen Saturation 96% 02/26/2014 4:05 PM PRIMARY SUBSTANCE ABUSE COUNSELOR Inhaled Oxygen Concentration - - Weight 76.7 kg (169 lb) 02/26/2014 2:41 PM PRIMARY SUBSTANCE ABUSE COUNSELOR Height - - Body Mass Index - - documented in this encounter Discharge Instructions Discharge InstructionsRobbie Nelson MD - 02/26/2014 4:38 PM PRIMARY SUBSTANCE ABUSE COUNSELOR Discharge Instructions Abdominal Pain Abdominal pain can [...] directed by your doctor today. Before using [id number] medications, ask your doctor and make sure [...] contain Tylenol?? (acetaminophen), including Vicodin??, Tylenol #3??, [place]??, Lortab??, and Percocet??. You should not take [...] if there is anything that worries you. ARY SUBSTANCE ABUSE COUNSELOR AttachmentsThe following attachments cannot be sent through [...] and after seeing her primary provider at [facility] in [place]. She reports, however, that her aching left [...] baso 0.3%, imm gran 0.1%), hgb 13.4, [id number] CMP: creat 0.82, o/w wnl Lipase: 114 [...] be discharged home to follow up with MEMORIAL COUNSELOR perdischarge instructions. Indications for return to the [...] February 12, and February 18. Please see [facility] for details of that. She has alr [...] I gave her a referral to our customer relations assistant gynecology provider. She will follow up. Diagnosis: ICD-9-CM 1. Abdominal pain, left lower quadrant 789.04 Ruben, Robbie Chowdhury, am serving as a scribe at 2:52 PM on 02/26/2014 to document services personally performed by Robbie Nelson MD, based on my observations and the provider's statements to me. Robbie Nelson MD 02/28/14 1030 ARY SUBSTANCE ABUSE COUNSELOR Abril Stack RN - 02/26/2014 2:40 PM CST Nausea. States has been seen for same in clinic and ED ARY SUBSTANCE ABUSE COUNSELOR documented in this encounter Plan of Treatment Not on filedocumented as of this encounter Procedures Procedure Name Priority Date/Time Associated Comments Diagnosis US PELVIS COMPLETE W STAT 02/26/2014 3:53 PM R esults for this TRANSVAGINAL AND PRIMARY SUBSTANCE ABUSE COUNSELOR procedure a re in DOPPLER LIMITED the results section. CBC WITH PLATELETS & STAT 02/26/2014 3:24 PM R esults for this DIFFERENTIAL PRIMARY SUBSTANCE ABUSE COUNSELOR procedure are i n the results section. LIPASE STAT 02/26/2014 3:24 PM Results f or this PRIMARY SUBSTANCE ABUSE COUNSELOR procedure are i n the results section. LACTIC ACID STAT 02/26/2014 3:24 PM Results f or this PRIMARY SUBSTANCE ABUSE COUNSELOR procedure are i n the results section. COMPREHENSIVE STAT 02/26/2014 3:24 PM Results for this METABOLIC PANEL PRIMARY SUBSTANCE ABUSE COUNSELOR procedure ar e in the results section. HCG QUALITATIVE URINE STAT 02/26/2014 3:05 PM Results for this PRIMARY SUBSTANCE ABUSE COUNSELOR procedure are i n the results section. ROUTINE UA WITH STAT 02/26/2014 3:05 PM Result s for this MICROSCOPIC PRIMARY SUBSTANCE ABUSE COUNSELOR procedure are i n the results section. documented in this encounter Results US Pelvic Complete w Transvaginal & Abd/Pel Duplex Limited (02/26/2014 3:53 PM PRIMARY SUBSTANCE ABUSE COUNSELOR) Anatomical Region Laterality Modality Abdomen/Pelvis Ultrasound Specimen (Source) Anatomical Location Collection Method / Collectio n Time Received Time / Laterality Volume Impressions 02/26/2014 3:56 PM PRIMARY SUBSTANCE ABUSE COUNSELOR IMPRESSION: 1. No evidence for ovarian torsion. Norm al blood flow is seen in both ovaries. 2. 2 cm cyst or follicle in the left ova ry. 3. No free fluid or adnexal mass. BETSY MILLS MD Narrative 02/26/2014 3:56 PM PRIMARY SUBSTANCE ABUSE COUNSELOR US PELVIS COMPLETE W TRANSVAGINAL AND DOPPLER [...] mass. BETSY MILLS MD Robbie Nelson MD [facility] US ORDERABLES Lipase (02/26/2014 3:24 PM PRIMARY SUBSTANCE ABUSE COUNSELOR) athologist Signature Lipase 114 73 - [address] [facility] U/L [facility] LAB Comment: Effective 11/10/2013, the reference range for this assay has changed to reflect new instrumentation/methodology. Specimen Anatomical Collection Method Collection Time Receive d Time (Source) Location / / Volume Laterality Blood specimen 02/26/2014 3:24 PM 014 3:40 (specimen) PRIMARY SUBSTANCE ABUSE COUNSELOR PM PRIMARY SUBSTANCE ABUSE COUNSELOR Robbie Nelson MD LAB - BLOOD ORDERABLES Performing Organization Address [facility] javed Flowers [facility] [address] [place], [place] [address] [phone] LAB Lactic acid (02/26/2014 3:24 PM PRIMARY SUBSTANCE ABUSE COUNSELOR) athologist Signature Lactic Acid 0.6 0.4 - 2.0 [place] mmol/[facility] LAB Specimen Anatomical Collection Method Collection Time Receive d Time (Source) Location / / Volume Laterality Blood specimen 02/26/2014 3:24 PM 014 3:40 (specimen) PRIMARY SUBSTANCE ABUSE COUNSELOR PM PRIMARY SUBSTANCE ABUSE COUNSELOR Robbie Nelson MD LAB - BLOOD ORDERABLES Performing Organization Address [facility]/[place] [address] [place], [place] [address] [phone] [place] [address] LAB Comprehensive metabolic panel (02/26/2014 3:24 PM PRIMARY SUBSTANCE ABUSE COUNSELOR) athologist Signature Sodium 136 133 - 144 [place] mmol/L [facility] LAB Potassium 3.9 3.4 - 5.3 [place] mmol/L [facility] Chloride 106 94 - 109 [place] mmol/L [facility] Carbon Dioxide 26 20 - 32 [place] mmol/L [facility] Anion Gap 4 3 - 14 [place] mmol/L [facility] Glucose 89 70 - 99 [place] mg/dL [facility] Comment: Effective 11/10/2013, the reference range for this assay has changed to reflect new instrumentation/methodology. Urea Nitrogen 13 7 - 30 mg/dL [facility] LAB Comment: Effective 11/10/2013, the reference range for this assay has changed to reflect new instrumentation/methodology. Creatinine 0.82 0.52 - 1.04 mg/dL [facility] LAB GFR Estimate 81 >60 mL/min/1.7m2 [facility] LAB Comment: Non GFR Calc GFR Estimate If Black >90 >60 mL/min/1.7m2 F [facility][NOTE 3] GFR Calc HOSP ITAL LAB Calcium 8.6 8.5 - 10.1 mg/dL [facility] LAB Comment: Effective 11/10/2013, the reference range for this assay has changed to reflect new instrumentation/methodology. Bilirubin Total 0.2 0.2 - 1.3 mg/dL [facility] LAB Albumin 3.8 3.4 - 5.0 g/dL [facility] LAB Protein Total 7.1 6.8 - 8.8 g/dL [facility] LAB Alkaline Phosphatase 74 40 - 150 U/L [facility] ALT 27 0 - 50 U/L [facility] AST 17 0 - 45 U/L [facility] LAB Specimen Anatomical Collection Method Collection Time Receive d Time (Source) Location / / Volume Laterality Blood specimen 02/26/2014 3:24 PM 014 3:40 (specimen) PRIMARY SUBSTANCE ABUSE COUNSELOR PM PRIMARY SUBSTANCE ABUSE COUNSELOR Robbie Nelson MD LAB - BLOOD ORDERABLES Performing Organization Address City/State/ZIP Code Phon e Number M [facility] [address] [place], [place] [address] [facility] LAB CBC with platelets differential (02/26/2014 3:24 PM PRIMARY SUBSTANCE ABUSE COUNSELOR) [facility] gist Method Time Signature WBC 7.3 4.0 - [place] 11.0 [facility] 10e9/L [facility] RBC Count 4.57 3.8 - 5.2 [place] 10e12/L [facility] Hemoglobin 13.4 11.7 - [place] 15.7 g/dL [facility] Hematocrit 40.1 35.0 - [place] 47.0 % [facility] MCV 88 78 - 100 [facility] LAB MCH 29.3 26.5 - [facility] 33.0 pg [facility] LAB MCHC 33.4 31.5 - [place] 36.5 g/dL [facility] RDW 13.1 10.0 - [place] 15.0 % [facility] Platelet Count 228 150 - 450 [place] 10e9/L [facility] Diff Method Automated [facility] LAB % Neutrophils 72.1 % [facility] % Lymphocytes 20.4 % [facility] % Monocytes 5.9 % [facility] % Eosinophils 1.2 % [facility] % Basophils 0.3 % [facility] % Immature 0.1 % [place] Granulocytes [facility] Absolute 5.3 1.6 - 8.3 [place] Neutrophil 10e9/L [facility] Absolute 1.5 0.8 - 5.3 [place] Lymphocytes 10e9/L [facility] Absolute 0.4 0.0 - 1.3 [place] Monocytes 10e9/L [facility] Absolute 0.1 0.0 - 0.7 [place] Eosinophils 10e9/L [facility] Absolute 0.0 0.0 - 0.2 [place] Basophils 10e9/L [facility] Abs Immature 0.0 0 - 0.4 [place] Granulocytes [address] [place] [address] LAB Specimen Anatomical Collection Method Collection Time Receive d Time (Source) Location / / Volume Laterality Blood specimen 02/26/2014 3:24 PM 014 3:40 (specimen) PRIMARY SUBSTANCE ABUSE COUNSELOR PM PRIMARY SUBSTANCE ABUSE COUNSELOR Robbie Nelson MD LAB - BLOOD ORDERABLES Performing Organization Address City/State/ZIP [facility] Phon e Number M [facility] [address] [place], [place] [address] [facility] LAB HCG qualitative urine (02/26/2014 3:05 PM PRIMARY SUBSTANCE ABUSE COUNSELOR) P athologist Signature HCG Qual Urine Negative NEG [facility] Specimen Anatomical Collection Method Collection Time Receive d Time (Source) Location / / Volume Laterality Urine specimen URINE SPECIMEN 02/26/2014 3:05 PM 02/26 3:10 (specimen) OBTAINED BY CLEAN PRIMARY SUBSTANCE ABUSE COUNSELOR PM PRIMARY SUBSTANCE ABUSE COUNSELOR CATCH PROCEDURE / Unknown Robbie Nelson MD LAB - URINE ORDERABLES Performing Organization Address City/State/[facility] Phon e Number M [facility] [address] [place], [place] [address] [facility] (ABNORMAL) UA with Microscopic (02/26/2014 3:05 PM PRIMARY SUBSTANCE ABUSE COUNSELOR) Patholo gist Method Time Signature Color Urine Light Yellow [facility] Appearance Urine Clear [facility] Glucose Urine Negative NEG mg/dL [facility] Bilirubin Urine Negative NEG [facility] Ketones Urine Negative NEG mg/dL [facility] Specific [place] 1.007 1.003 - [place] Urine 1.035 [facility] Blood Urine Negative NEG [facility] pH Urine 5.5 5.0 - 7.0 [place] pH [facility] Protein Albumin Negative NEG mg/dL [place] Urine [facility] Urobilinogen Normal 0.0 - 2.0 [place] mg/dL mg/dL [facility] Nitrite Urine Negative NEG [facility] Leukocyte Negative NEG [place] Esterase Urine [facility] Source Midstream [place] Urine [facility] WBC Urine <1 0 - 2 [facility] RBC Urine <1 0 - 2 [facility] Bacteria Urine Few (A) NEG /HPF [facility] Squamous 1 0 - 1 [place] Epithelial /HPF /HPF [facility] LAB Mucous Urine Present (A) NEG /LPF [facility] Specimen Anatomical Collection Method Collection Time Receive d Time (Source) Location / / Volume Laterality Urine specimen URINE SPECIMEN 02/26/2014 3:05 PM 02/26 3:10 (specimen) OBTAINED BY CLEAN PRIMARY SUBSTANCE ABUSE COUNSELOR PM PRIMARY SUBSTANCE ABUSE COUNSELOR CATCH PROCEDURE / Unknown Robbie Nelson MD LAB - URINE ORDERABLES Performing Organization Address City/State/ZIP Code Phon e Number M [facility] [address] [place], [place] [address] [facility] documented in this encounter Visit Diagnoses Diagnosis Abdominal pain, left lower quadrant - Pr imary documented in this encounter Administered Medications Inactive Administered Medications - up to 3 most recent administrations Medication Order MAR Action Action Date Dose Rate Site ketorolac (TORADOL) injection 30 mg Given 02/26/2014 3:18 PM PRIMARY SUBSTANCE ABUSE COUNSELOR 30 mg 30 mg, Intravenous, ONCE, On 02/26/14 at 1507, For 1 dose ondansetron (ZOFRAN) injection 4 mg Given 02/26/2014 3:18 PM PRIMARY SUBSTANCE ABUSE COUNSELOR 4 mg 4 mg, Intravenous, EVERY 30 MIN PRN, nausea, vomiting, Administer over 2-5 Minutes, Starting on 02/26/14 at 1506, For 3 doses, May repeat in 30 minutes as needed, up to 3 doses. oxyCODONE-acetaminophen (PERCOCET) 5-325 Given 02/26/2014 4: 55 PM PRIMARY SUBSTANCE ABUSE COUNSELOR 2 tablets MG per tablet 2 tablet 2 tablet, Oral, ONCE, On 02/26/14 at 1638, For 1 dose, Maximum acetaminophen dose from all sources= 75 mg/kg/day not to exceed 4 grams sodium chloride 0.9 % BOLUS New Bag 02/26/2014 3:18 PM PRIMARY SUBSTANCE ABUSE COUNSELOR 1,000 m Ls 1000 mL/hr 1,000 mL Intravenous, 1,000 mL, ONCE, at 1,000 mL/hr, Administer over 1 Hours, On 02/26/14 at 1507, For 1 dose documented in this encounter Active and Recently Administered Medications Times are shown in PRIMARY SUBSTANCE ABUSE COUNSELOR. Scheduled Medication Order 02/24/2014 02/25/2014 02/26/2014 ketorolac [...] doses. documented in this encounter Care Teams Base Ply Hand Relationship Specialty Start Date End Date Jamin Silva MD PCP - General Family Medicine - Sports 06/01/13 Medicine documented as of this encounter
--- OUTSIDE RECORDS SUMMARY | 2022-01-21 15:51 | XMS_ITS | Encounter Summary ---
:1980 Author Organization [place] Address [facility] [place] [address] Care Team Providers Name Role Phone Ratna Mackey MD Primary Care Provider Reason for Visit Reason Comments Dizziness Encounter Details Date Type Department Care Team Description [facility]2015 [facility], [facility] MD [facility] Dept EMERGENCY PHYSIC[facility]ANS [address] [place], [place] [address] [place] [address] [place] [address] [place] [address] (Wo rk) Social History Tobacco Use Types [...] canal. This can be due to: ?? [phone] [employer]. [address] [place] [address], [place] [address]. All rights reserved. This information is not [...] peggy. These are available at most drugstores. Ipor-fkn-rzttoah hemorrhoid ointments and petroleum jelly can also [...] plenty of water when you exercise. ?? [phone] [employer]. [address] [place] [address]. All rights reserved. This information is not [...] Place rectally At Bedtime Andres Miller 09/22/2015 [facility] EMERGENCY DEPARTMENT I, Andres Miller, am serving [...] athologist Signature Sodium 140 133 - 144 [place] mmol/L [facility] Potassium 3.8 3.4 - 5.3 [place] mmol/L [facility] Chloride 108 94 - 109 [place] mmol/L [facility] Carbon Dioxide 25 20 - 32 [place] mmol/L [facility] Anion Gap 7 3 - 14 [place] mmol/L [facility] Glucose 115 (H) 70 - 99 [place] mg/dL [facility] Urea Nitrogen 10 7 - 30 [place] mg/dL [facility] Creatinine 0.92 0.52 - [place] 1.04 mg/dL [facility] GFR Estimate 70 >60 [place] mL/min/1.[address] Comment: Non GFR Calc GFR Estimate If Black 84 >60 mL/min/1.7m2 F [facility] Comment: GFR Calc Calcium 9.1 8.5 - 10.1 mg/dL [facility] Specimen Anatomical Collection Method Collection Time Receive d Time (Source) Location / / Volume Laterality Blood specimen 09/22/2015 1:40 PM 016 1:43 (specimen) CDT PM CDT Shon Patel MD LAB - BLOOD ORDERABLES Performing Organization Address City/State/ZIP Code Phon e Number M [place] [address] [address] [place] [address] [facility] [address] [phone] CBC with platelets differential (09/22/2015 1:40 PM CDT) Patholo gist Method Time Signature WBC 7.3 4.0 - [facility] 11.0 [facility] 10e9/L [facility] RBC Count 4.99 3.8 - 5.2 [place] 10e12/L [facility] Hemoglobin 15.1 11.7 - [place] 15.7 g/dL [facility] Hematocrit 42.7 35.0 - [place] 47.0 % [facility] MCV 86 78 - 100 [facility] MCH 30.3 26.5 - [place] 33.0 pg [facility] MCHC 35.4 31.5 - [place] 36.5 g/dL [facility] RDW 12.7 10.0 - [place] 15.0 % [facility] Platelet Count 254 150 - 450 [place] [id number] [place] [address] Diff Method Automated [place] Method [facility] % Neutrophils 71.6 % [facility] % Lymphocytes 19.4 % [facility] % Monocytes 7.3 % [facility] % Eosinophils 1.0 % [facility] % Basophils 0.4 % [facility] % Immature 0.3 % [place] Granulocytes [facility] Nucleated RBCs 0 0 /100 [facility] Absolute 5.2 1.6 - 8.3 [place] Neutrophil [address] [place] [address] Absolute 1.4 0.8 - 5.3 [place] Lymphocytes [address] [place] [address] Absolute 0.5 0.0 - 1.3 [place] Monocytes [address] [place] [address] Absolute 0.1 0.0 - 0.7 [place] Eosinophils [address] [place] [address] Absolute 0.0 0.0 - 0.2 [place] Basophils [address] [place] [address] Abs Immature 0.0 0 - 0.4 [place] Granulocytes [address] [place] [address] Absolute 0.0 [place] Nucleated RBC [facility] Specimen Anatomical Collection Method Collection Time Receive d Time (Source) Location / / Volume Laterality Blood specimen 09/22/2015 1:40 PM 016 1:43 (specimen) CDT PM CDT Shon Patel MD LAB - BLOOD ORDERABLES Performing Organization Address City/State/ZIP Code Phon e Number M [facility] [address] [place], [place] [address] [facility] [address] [place] [address] [facility] [phone] documented in this encounter Visit Diagnoses Diagnosis [...] injection (COMPLETED) 1345 (Given - Provider: Lindsay Mcintosh RN) Starting Fri09/22/15 at 1346, For 1 dose, LINDSAY MCINTOSH: cab inet override documented in this encounter Care Teams Sap Bi Developer Relationship Specialty Start Date End Date Ratna Mackey MD PCP - General Family Practice 03/07/15 12/29/20 [facility] [address] [place] [address] documented as of this encounter
--- OUTSIDE RECORDS SUMMARY | 2022-01-21 15:51 | XMS_ITS | Encounter Summary ---
:1980 Author Organization [place] Address [facility] [place] [address] Care Team Providers Name Role Phone Jamin Silva MD Primary Care Provider Reason for Visit Reason Comments Abdominal Pain Encounter Details Date Type Department Care Team Description 03/30/2014 Emergency [facility] Courtney Hodges MD Left sided abdominal pain; [facility] Emergency Dep t EMERGENCY PHYSICIANS Other and unspecified ovaria n cyst [address] [place], [place] [address] [facility] EMERGENCY ROOM [address] [place] [address] [phone] (Wo rk) Social History Tobacco Use Types Packs/Day Years Used Date Smoking Tobacco: Every Day Cigarettes 0.3 Alcohol Use Standard Drinks/Week Comments No 0 (1 standard drink = 0.6 oz pure alcoho l) Sex Assigned at Date Recorded Not on file documented as of this encounter Last Filed Vital Signs Vital Sign Reading Time Taken Comments Blood Pressure 131/90 03/30/2014 4:32 PM NURSE AUDITOR Pulse 100 03/30/2014 12:45 PM NURSE AUDITOR Temperature 36.5 ??C (97.7 ??F) 03/30/2014 12:45 PM NURSE AUDITOR Respiratory Rate 16 03/30/2014 2:20 PM NURSE AUDITOR Oxygen Saturation 97% 03/30/2014 4:32 PM NURSE AUDITOR Inhaled Oxygen Concentration - - Weight - [...] contain Tylenol?? (acetaminophen), including Vicodin??, Tylenol #3??, Boron??, Lortab??, and Percocet??. You should not take [...] directed by your doctor today. Before using lsfg-vbz-lbljuef medications, ask your doctor and make sure [...] contain Tylenol?? (acetaminophen), including Vicodin??, Tylenol #3??, Boron??, Lortab??, and Percocet??. You should not take [...] if there is anything that worries you. E AUDITOR documented in this encounter Medications at Time [...] to bathroom. Pt tolerated well. UA obtained E AUDITOR Courtney Hodges MD - 03/30/2014 2:23 PM [...] for her. She has an appointment with gene banks tomorrow. I recommended she follow up [...] provider's statements to me. Buffy Curtis 03/30/2014 [facility] EMERGENCY DEPARTMENT Courtney Hodges MD 03/31/14 0037 E AUDITOR Meena Walker RN - 03/30/2014 12:46 PM CST Left lower abd pain- history of ovarian cyst. ABC Intact alert and no distress. E AUDITOR documented in this encounter Plan of Treatment Not on filedocumented as of this encounter Procedures Procedure Name Priority Date/Time Associated Comments Diagnosis US PELVIS COMPLETE W STAT 03/30/2014 3:51 PM R esults for this TRANSVAGINAL AND NURSE AUDITOR procedure a re in DOPPLER LIMITED the results section. CBC WITH PLATELETS & STAT 03/30/2014 2:40 PM R esults for this DIFFERENTIAL NURSE AUDITOR procedure are i n the results section. LIPASE STAT 03/30/2014 2:40 PM Results f or this NURSE AUDITOR procedure are i n the results section. COMPREHENSIVE STAT 03/30/2014 2:40 PM Results for this METABOLIC PANEL NURSE AUDITOR procedure ar e in the results section. HCG QUALITATIVE URINE STAT 03/30/2014 2:38 PM Results for this NURSE AUDITOR procedure are i n the results section. ROUTINE UA WITH STAT 03/30/2014 2:38 PM Result s for this MICROSCOPIC NURSE AUDITOR procedure are i n the results section. documented in this encounter Results US Pelvic Complete w Transvaginal & Abd/Pel Duplex Limited (03/30/2014 3:51 PM NURSE AUDITOR) Anatomical Region Laterality Modality Abdomen/Pelvis Ultrasound Specimen (Source) Anatomical Location Collection Method / Collectio n Time Received Time / Laterality Volume Narrative 03/30/2014 3:58 PM NURSE AUDITOR PELVIC ULTRASOUND 03/30/2014 3:51 PM HISTORY: Pelvic [...] ovaries. DWIGHT RAZO MD Courtney Hodges MD [facility] US ORDERABLES Lipase (03/30/2014 2:40 PM NURSE AUDITOR) athologist Signature Lipase 110 73 - 393 [facility] U/L [facility] Comment: Effective 11/10/2013, the reference range for this assay has changed to reflect new instrumentation/methodology. Specimen Anatomical Collection Method Collection Time Receive d Time (Source) Location / / Volume Laterality Blood specimen 03/30/2014 2:40 PM 014 2:56 (specimen) NURSE AUDITOR PM NURSE AUDITOR Courtney Hodges MD LAB - BLOOD ORDERABLES Performing Organization Address City/State/ZIP Code Phon e Number M [facility] [address] [place] [address] HOSPITAL [facility] Comprehensive metabolic panel (03/30/2014 2:40 PM NURSE AUDITOR) P athologist Signature Sodium 135 133 - 144 [place] mmol/L [facility] Potassium 4.0 3.4 - 5.3 [place] mmol/L [facility] Chloride 105 94 - 109 [place] mmol/L [facility] Carbon Dioxide 26 20 - 32 [place] mmol/L [facility] Anion Gap 4 3 - 14 [place] mmol/L [facility] Glucose 97 70 - 99 [place] mg/dL [facility] Comment: Effective 11/10/2013, the reference range for this assay has changed to reflect new instrumentation/methodology. Urea Nitrogen 17 7 - 30 mg/dL [facility] Comment: Effective 11/10/2013, the reference range for this assay has changed to reflect new instrumentation/methodology. Creatinine 0.77 0.52 - 1.04 mg/dL [facility] GFR Estimate 87 >60 mL/min/1.7m2 [facility] Comment: Non GFR Calc GFR Estimate If Black >90 >60 mL/min/1.7m2 F [facility] GFR Calc [facility] LAB Calcium 8.6 8.5 - 10.1 mg/dL [facility] Comment: Effective 11/10/2013, the reference range for this assay has changed to reflect new instrumentation/methodology. Bilirubin Total 0.3 0.2 - 1.3 mg/dL [facility] Albumin 3.8 3.4 - 5.0 g/dL [facility] Protein Total 7.1 6.8 - 8.8 g/dL [facility] Alkaline Phosphatase 80 40 - 150 U/L [facility] ALT 34 0 - 50 U/L [facility] AST 23 0 - 45 U/L [facility] Specimen Anatomical Collection Method Collection Time Receive d Time (Source) Location / / Volume Laterality Blood specimen 03/30/2014 2:40 PM 014 2:56 (specimen) NURSE AUDITOR PM NURSE AUDITOR Courtney Hodges MD LAB - BLOOD ORDERABLES Performing Organization Address City/State/ZIP Code Phon e Number M [facility] [address] [place], [place] [address] [facility] CBC with platelets differential (03/30/2014 2:40 PM NURSE AUDITOR) [facility] gist Method Time Signature WBC 8.7 4.0 - [facility] 11.0 [facility] 10e9/L [facility] RBC Count 4.70 3.8 - 5.2 [place] 10e12/L [facility] Hemoglobin 14.1 11.7 - [place] 15.7 g/dL [facility] Hematocrit 41.0 35.0 - [place] 47.0 % [facility] MCV 87 78 - 100 [place] fl [facility] MCH 30.0 26.5 - [place] 33.0 pg [facility] MCHC 34.4 31.5 - [place] 36.5 g/dL [facility] RDW 13.1 10.0 - [place] 15.0 % [facility] Platelet Count 233 150 - [address] [place] [address] [place] [address] LAB Diff Method Automated [facility] LAB % Neutrophils 68.9 % [facility] % Lymphocytes 23.0 % [facility] % Monocytes 6.6 % [facility] % Eosinophils 1.2 % [facility] % Basophils 0.1 % [facility] % Immature 0.2 % [place] Granulocytes [facility] Absolute 6.0 1.6 - 8.3 [place] Neutrophil 10e9/L [facility] Absolute 2.0 0.8 - 5.3 [place] Lymphocytes 10e9[facility] Absolute 0.6 0.0 - 1.3 [place] Monocytes 109[facility] Absolute 0.1 0.0 - 0.7 [place] Eosinophils 109[facility] Absolute 0.0 0.0 - 0.2 [place] Basophils 10e9[facility] Abs Immature 0.0 0 - 0.4 [place] Granulocytes [address] LAB Specimen Anatomical Collection Method Collection Time Receive d Time (Source) Location / / Volume Laterality Blood specimen 03/30/2014 2:40 PM 014 2:56 (specimen) NURSE AUDITOR PM NURSE AUDITOR Courtney Hodges MD LAB - BLOOD ORDERABLES Performing Organization Address City/State/ZIP Code Phon e Number M [facility] [address] [place], [place] [address] [facility] HCG qualitative urine (03/30/2014 2:38 PM NURSE AUDITOR) athologist Signature HCG Qual Urine Negative NEG [facility] Specimen Anatomical Collection Method Collection Time Receive d Time (Source) Location / / Volume Laterality Urine specimen 03/30/2014 2:38 PM 014 2:55 (specimen) NURSE AUDITOR PM NURSE AUDITOR Courtney Hodges MD LAB - URINE ORDERABLES Performing Organization Address [facility] Phon e Number M [facility] [address] [place], [place] [address] [facility] (ABNORMAL) UA with Microscopic (03/30/2014 2:38 PM NURSE AUDITOR) [facility] Method Time Signature Color Urine Yellow [facility] Appearance Urine Clear [facility] Glucose Urine Negative NEG mg/dL [facility] Bilirubin Urine Negative NEG [facility] Ketones Urine Negative NEG mg/dL [facility] Specific [place] 1.016 1.003 - [place] Urine 1.035 [facility] Blood Urine Negative NEG [facility] pH Urine 5.5 5.0 - 7.0 [place] pH [facility] Protein Albumin Negative NEG mg/dL [facility] Urobilinogen Normal 0.0 - 2.0 [place] mg/dL mg/dL [facility] Nitrite Urine Negative NEG [facility] Leukocyte Negative NEG [place] Esterase Urine [facility] Source Midstream [facility] WBC Urine 0 0 - 2 [place] /[facility] RBC Urine 1 0 - 2 [place] /[facility] Squamous <1 0 - 1 [place] Epithelial /HPF /HPF [facility] LAB Mucous Urine Present (A) NEG /LPF [facility] Specimen Anatomical Collection Method Collection Time Receive d Time (Source) Location / / Volume Laterality Urine specimen 03/30/2014 2:38 PM 014 2:55 (specimen) NURSE AUDITOR PM NURSE AUDITOR Courtney Hodges MD LAB - URINE ORDERABLES Performing Organization Address [facility] e Number [address] [address] [facility] documented in this encounter Visit Diagnoses Diagnosis Left sided abdominal pain Abdominal pain, unspecified site Other and unspecified ovarian cyst documented in this encounter Administered Medications Inactive Administered Medications - up to 3 most recent administrations Medication Order MAR Action Action Date Dose Rate Site ketorolac (TORADOL) injection 30 mg Given 03/30/2014 2:55 PM NURSE AUDITOR 30 mg 30 mg, Intravenous, ONCE, On Fri03/30/14 at 1427, For 1 dose, Do not give within 6 hours of Ibuprofen. ondansetron (ZOFRAN) injection 4 mg Given 03/30/2014 2:54 PM NURSE AUDITOR 4 mg 4 mg, Intravenous, EVERY 30 MIN PRN, nausea, vomiting, Administer over 2-5 Minutes, Starting on Fri03/30/14 at 1426, For 3 doses, May repeat in 30 minutes as needed, up to 3 doses. sodium chloride 0.9 % BOLUS New Bag 03/30/2014 2:48 PM NURSE AUDITOR 1,000 m Ls 1000 mL/hr 1,000 mL Intravenous, 1,000 mL, ONCE, at 1,000 mL/hr, Administer over 1 Hours, On Fri03/30/14 at 1427, For 1 dose documented in this encounter Active and Recently Administered Medications Times are shown in NURSE AUDITOR. Scheduled Medication Order 03/28/2014 03/29/2014 03/30/2014 ketorolac [...] (CANCELED) 1454 (Given - Provider: Colette Aguiar, ANGE) 4 mg, Intravenous, EVERY 30 MIN PRN, amador sea, vomiting, for 2 Minutes, Starting Fri03/30/14 at 1426, For 3 doses, May repeat in 30 minutes as needed, up to 3 doses. documented in this encounter Care Teams Political Science Instructor Relationship Specialty Start Date End Date Jamin Silva MD PCP - General Family Medicine - Sports 06/01/13 Medicine documented as of this encounter
[2022-01-21] MEDS: ACETAMINOPHEN 500 MG TABLET 1000 MG PO (17:16)
== END 2022-01-21 17:21 | disposition home or self-care (01) ==
LOC: ED 15:49
PROVIDERS: Emergency Provider Family Medicine; PCP Family Medicine; Referring Provider Family Medicine
DX: S70.02XA Contusion of left hip, initial encounter (principal); W11.XXXA Fall on and from ladder, initial encounter
CPT/HCPCS: 72192; 73502; 99284; A9270

== ENCOUNTER 2022-01-31 19:22 | Emergency (ER) | payer BC, SELFPAY ==
[2022-01-31 19:24] VITALS: BP 126/83; PULSE 78; RESP 16; TEMP 36.6; O2SAT 98; BMI 27.0
--- NOTE | 2022-01-31 19:38 | CRLHL7_ITS ---
For Patients: As a result of the Century Cures Act, medical imaging exams and procedure reports are released immediately into your electronic medical record. You may view this report before your referring provider. If you have questions, please contact your health care provider. Indication: Right lower quadrant pain Technique: Contrast enhanced CT of the abdomen and pelvis, Isovue 370, 80 cc IV Please note that all CT scans at this facility use dose modulation, iterative reconstruction, and/or weight-based dosing when appropriate to reduce radiation dose to as low as reasonably achievable. Comparison: CT dated June 07, 2021 Findings: Normal heart size. No pericardial effusion. Lung bases appear clear. Normal liver size and contour. Hepatic steatosis. No suspicious hepatic lesions. Hepatic veins and portal veins appear patent. Normal gallbladder. No biliary dilatation. No significant abnormality of the adrenal glands, kidneys, spleen, pancreas, stomach, duodenum, vessels, aortic side branches, renal veins, lymph nodes or bladder. Status post hysterectomy. There is a simple appearing cyst within the right ovary. The left ovary is not identified. No significant bowel or appendiceal abnormality. No free fluid. No significant osseous or body wall abnormality. Impression: No etiology identified for patient`s abdominal pain. Please note that all CT scans at this facility use dose modulation, iterative reconstruction, and/or weight-based dosing when appropriate to reduce radiation dose to as low as reasonably achievable. Dictated by Oliver Connell MD @ 01/31/2022 9:18:32 PM (Electronically Signed)
--- NOTE | 2022-01-31 19:39 | ED_ITS ---
HPI - Abdominal Pain General Chief Complaint: Abdominal Pain Stated Complaint: Abdominal Pain Time Seen by Provider: 01/31/22 19:33 History of Present Illness HPI narrative: This 42-year-old female comes in with right lower quadrant abdominal pain that began yesterday. She states that it is a constant pain and has been worsening through this time. She does not report any nausea or vomiting. She did take food today without difficulty. She has not had any fevers. The pain is worse with movement and lessened when remaining still. Related Data Home Medications Medication Instructions Recorded Confirmed albuterol sulfate 90 mcg/actuation 2 puff inhalation Q4-6H PRN 10/12/21 01/31/22 aerosol inhaler bupropion HCl 300 mg 24 hr tablet, 300 mg PO DAILY 10/12/21 01/31/22 extended release fluticasone furoate 200 See Rx Instructions inhalation 10/12/21 01/31/22 mcg-vilanterol 25 mcg/dose DAILY inhalation powder Tylenol 01/31/22 ibuprofen 01/31/22 Previous Rx's Medication Instructions Recorded diclofenac sodium 75 mg 75 mg PO BID #60 tabs 10/12/21 tablet,delayed release sertraline 100 mg tablet 100 mg PO DAILY #90 tabs 12/19/21 omeprazole 20 mg capsule,delayed 20 mg PO QDAY #90 caps 01/18/22 release trazodone 100 mg tablet 250 mg PO QHS #225 tabs 01/18/22 Allergies Allergy/AdvReac Type Severity Reaction Status Date / Time hydrocodone Allergy Intermediate itchy Verified 01/31/22 19:27 Review of Systems Status of ROS Reports: 10 or more systems reviewed and unremarkable except as noted in History and below Narrative Constitutional: No fevers, no weight gain or loss. Eyes: No discharge. No vision changes. HENT: No congestion, no sore throat, no ear pain. Cardiovascular: No chest pain, no palpitations. Respiratory: No shortness of breath, no wheezes, no cough. Gastrointestinal: No vomiting, no diarrhea. Right lower quadrant abdominal pain as described above. Genitourinary: No dysuria, no hematuria. Musculoskeletal: Normal range of motion. Skin: No rashes, no pruritis. Neurological: No dizziness, weakness, sensory change, speech change. Endo/Heme/Allergies: No bruising or bleeding. No polydipsia. Pysch: no suicidality, no anxiety, no insomnia. All other systems reviewed and are negative. [facility] Medical History Chronic abdominal pain Chronic interstitial cystitis Cyst of left ovary Cyst of right ovary Essential tremor (08/16/07) Gastroesophageal reflux disease (06/16/08) Generalized anxiety disorder History of abnormal cervical Papanicolaou smear Insomnia (01/07/14) Menorrhagia Moderate episode of recurrent major depressive disorder (02/23/07) Restless legs syndrome (03/25/12) Surgical History History of laparoscopy History of tubal ligation Status post laparoscopic hysterectomy Family History Other ASCVD (arteriosclerotic cardiovascular disease) Diabetes Social History Narrative: josé luis, smoker Smoking Status: Current every day smoker Do you use any of these nicotine containing products: None Second hand tobacco smoke exposure: No How often do you have a drink containing alcohol: monthly or less AUDIT-C Alcohol total score: 1 Non-prescribed substance use: marijuana (any form) Non-prescribed substance use details: edibles, not very often, twice a week Little interest or pleasure in doing things: nearly every day Feeling down, depressed, or hopeless: several days service: No Exam Narrative: Exam Narrative: Constitutional: Well-developed, well-nourished, no acute distress. HEENT: Normocephalic, atraumatic. Neck: Normal range of motion. Nontender. Supple. Heart: Regular. No murmurs. Normal rate. Intact distal pulses. Lungs: Clear to auscultation. No chest discomfort. No wheezes, rhonchi, or rales. Abdomen: Normal bowel sounds. Tenderness in the right lower quadrant at McBurney's point. Rebound tenderness is present. Genitalia: Deferred. Back: No midline tenderness. Normal range of motion. Extremities: Normal range of motion. No injury. Skin: Intact. No rash. Warm. No erythema or pallor. Neurologic: No altered sensation. No weakness. Alert and oriented. Psychiatric: No suicidality. No anxiety or depression. No insomnia. Nursing notes and vitals signs are reviewed. Const: Vital Signs, click to edit/add: Vital Signs - 24 hr 01/31/22 19:24 Temperature 97.8 F Pulse Rate [Left P ulse Oximeter] 78 Respiratory Rate 16 Blood Pressure [Ri ght Upper Arm] 126/83 Pulse Oximetry 98 Oxygen Delivery Me thod Room Air Course Vital Signs Vital signs: Initial Vital Signs Temperature 97.8 F 01/31/22 19:24 Temperature Source Temporal Artery Scan 01/31/22 19:24 Pulse Rate 78 01/31/22 19:24 Respiratory Rate 16 01/31/22 19:24 Blood Pressure 126/83 01/31/22 19:24 Blood Pressure Mean 97 01/31/22 19:24 Blood Pressure Position Sitting 01/31/22 19:24 Pulse Oximetry 98 01/31/22 19:24 Oxygen Delivery Method 01/31/22 19:24 Vital Signs Temperature 97.8 F 01/31/22 19:24 Pulse Rate 78 01/31/22 19:24 Respiratory Rate 16 01/31/22 19:24 Blood Pressure 126/83 01/31/22 19:24 Pulse Oximetry 98 01/31/22 19:24 Oxygen Delivery Method 01/31/22 19:24 Temperature 97.8 F 01/31/22 19:24 Pulse Rate 78 01/31/22 19:24 Respiratory Rate 16 01/31/22 19:24 Blood Pressure 126/83 01/31/22 19:24 Pulse Oximetry 98 01/31/22 19:24 Oxygen Delivery Method 01/31/22 19:24 MDM - Abdominal Pain MDM Narrative Medical decision making narrative: This patient comes in with right lower quadrant abdominal pain. She has enough symptoms to generate a suspicion for an appendicitis. An IV was established and labs were drawn. CT imaging of the abdomen and pelvis is ordered and completed. Lab and imaging results returned with normal findings. There is no sign of namrata endicitis. There are actually no findings in these studies that explain the patient's pain. She did have a CT of her pelvis a few weeks ago and at that time there was a 3 cm cyst in the adnexa. It seems likely that this has ruptured and is not now visible on imaging but yet causing pain with the fluid is released from the cyst. The patient received Dilaudid and Zofran intravenously to bring some pain relief. She is okay to be discharged home and received a prescription for [place]. Lab Data Labs: Lab Results 01/31/22 01/31/22 Range/Units 20:02 20:02 WBC 8.20 (4.50-11.00) K/uL RBC 4.15 (4.00-5.20) m/uL Hgb 12.7 (12.0-16.0) gm/dL Hct 37.0 (33.0-51.0) % MCV 89 (80-100) fL MCH 31 (26-34) pg MCHC 34 (32-36) gm/dL RDW Coeff of Jose Alberto 12.7 (11.5-15.5) % Plt Count 222 (140-440) K/uL Neut % (Auto) 64.0 (42.0-72.0) % Lymph % (Auto) 27.7 (20-44) % [place] % (Auto) 7.0 (0.0-11.0) % Eos % (Auto) 1.1 (0.0-7.0) % Baso % (Auto) 0.1 (0.0-3.0) % Neut # (Auto) 5.25 (1.7-7.0) K/uL Lymph # (Auto) 2.27 (0.90-2.90) K/uL [place] # (Auto) 0.60 (0.00-0.90) K/UL Eos # (Auto) 0.09 (0.00-0.50) K/uL Baso # (Auto) 0.01 (0.00-0.30) K/uL Abs Immat Gran (auto) 0.01 (0.00-0.30) K/uL Sodium 134 L (135-149) mmol/L Potassium 3.7 (3.6-5.1) mmol/L Chloride 103 (96-114) mmol/L Carbon Dioxide 23 (20-32) mmol/L BUN 18 (5-24) mg/dL Creatinine 0.8 (0.5-1.5) mg/dL Estimated Creat Clear 87.51 Estimated GFR 95 ml/min Glucose 89 (60-115) mg/dL Calcium 9.3 (8.4-10.6) mg/dL Imaging Data CT scan - abdomen: Radiologist's impression: No etiology identified for patient`s abdominal pain. Discharge Plan Discharge Clinical Impression: Abdominal pain Patient Disposition: Home, Self-Care Condition: Stable Additional Instructions: Take medication as needed and indicated. Follow up with MD or return if worsening. Prescriptions: No Action bupropion HCl 300 mg tablet extended release 24 hr 300 mg PO DAILY albuterol sulfate 90 mcg/actuation HFA aerosol inhaler 2 puff inhalation Q4-6H PRN fluticasone furoate-vilanterol 200-25 mcg/dose blister with device See Rx Instructions inhalation DAILY Rx Instructions: 1 puff inhalation daily; diclofenac sodium 75 mg tablet,delayed release (DR/EC) 75 mg PO BID Qty: 60 2RF Tylenol ibuprofen sertraline 100 mg tablet 100 mg PO DAILY Qty: 90 0RF trazodone 100 mg tablet 250 mg PO QHS Qty: 225 0RF omeprazole 20 mg capsule,delayed release(DR/EC) 20 mg PO QDAY Qty: 90 0RF Follow Up/Referrals: Danny Hernández MD [Primary Care Provider] - Stand Alone Forms: [employer]k Info Instructions
--- OUTSIDE RECORDS SUMMARY | 2022-01-31 19:39 | XMS_ITS | Encounter Summary ---
:1980 Author Organization [place] Address [address] [place] [address] Care Team Providers Name Role Phone [facility] Primary Care Provide r Encounter Details [...] on filedocumented in this encounter Care Teams Patrol Police Lieutenant Relationship Specialty Start Date End Date [facility] PCP - General 12/30/201999 [place] [address] documented as of this encounter
--- OUTSIDE RECORDS SUMMARY | 2022-01-31 19:39 | XMS_ITS | Encounter Summary ---
:1980 Author Organization [place] Address [address] [place] [address] Care Team Providers Name Role Phone Jamin Silva MD Primary Care Provider Reason for Visit Reason Comments Abdominal Pain Encounter Details Date Type Department Care Team Description 06/07/2014 Emergency [facility] Quintin Benjamin Chronic pelvic pain in [facility] Emergency Dep ralph Nova MD female [address] [facility] [id number] [facility] [phone] [place], [place] [address] (Wo rk) Social History [...] Comments Blood Pressure 134/81 06/07/2014 5:08 PM LAUNDRY HELPER Pulse 81 06/07/2014 5:08 PM LAUNDRY HELPER Temperature 36.9 ??C (98.5 ??F) 06/07/2014 2:54 PM LAUNDRY HELPER Respiratory Rate 16 06/07/2014 5:08 PM LAUNDRY HELPER Oxygen Saturation 99% 06/07/2014 5:08 PM LAUNDRY HELPER Inhaled Oxygen Concentration - - Weight - - Height - - Body Mass Index - - documented in this encounter Discharge Instructions Discharge InstructionsQuintin Castro MD - 06/07/2014 4:56 PM LAUNDRY HELPER Chronic Pain Resources *Many of the listed clinics will need a physician referral and medical records sent prior to making an appointment. Insuranceproviders often need to be called for acceptance. Clinic Location/Contact Information/Hours Information [facility] [address] [place], [place] [address] Sub acute and chronic pain - interventional pain medicine available [facility] Twelfth Floor [address] [place] [address] M-TH: 7:30 am - 5:00 pm F: 7:30 am - 4:00 pm Sub acute and chronic pain - interventional pain medicine available [facility] Pain Specialist Dr. Stephan Bojorquez [address] [facility], [address] [place], [place] [address] M-F: 8:00 am - 5:30 pm Acute and chronic pain management including medication management. [facility] Chronic Pain Dr. Valdo Fernandez [address] [place], [place] [address] M-F: 7:00 am - 4:30 pm Inpatient residential chronic pain program and outpatient clinic, focus on rehabilitative pain management. [facility] [address] [facility], [address] [place], [place] [id number] M-F: 8:00 am - 4:00 pm Specializing in interventional pain management including epidural injections and medication management. [facility] [address] [place], [place] [id number] M-TH: 8:00 am - 9:00 pm F: 8:00 am - 4:30 pm Integrative medicine services including massage therapy, reflexology, mind/bodytherapy, guided imagery, acupuncture, exercises physiology, healing motor coach operator, and integrative nutrition. [facility] [address], [address] [place] [address] *Other [facility] Locations Available M-F: Depends on clinic Chronic, cancer and spinal pain syndromes - focus on interventions, rehabilitation, alternative medicine and behavioral health. Offers an outpatient four week chronic pain program, four hours daily, Friday through Friday. [facility] [address] [facility], [address] [place] [address] M-F: 8:00 am - 5:00 pm Specializing [...] if there is anything that worries you. DRY HELPER documented in this encounter Medications at Time [...] for alcohol use. OB: Dr. Guardado at [facility] Review of Systems Constitutional: Negative for [...] ibuprofen and percocet. On review of the TECHNICIAN SEMICONDUCTOR DEVELOPMENT literature, patient was recently given 15 percocet [...] provider's statements to me. Yissel Rodgers 06/07/2014 [facility] EMERGENCY DEPARTMENT Quintin Castro MD 06/13/14 0119 DRY HELPER Raegan Llamas, RN - 06/07/2014 2:54 PM CST Abdomen pain since January of 2014. Seen by her OB yesterday and told she has endometriosis. Pain isworse today. DRY HELPER documented in this encounter Plan of Treatment Not on filedocumented as of this encounter Procedures Procedure Name Priority Date/Time Associated Comments Diagnosis HCG QUALITATIVE URINE STAT 06/07/2014 3:29 PM Results for this LAUNDRY HELPER procedure are i n the results section. ROUTINE UA WITH STAT 06/07/2014 3:29 PM Result s for this MICROSCOPIC REFLEX TO LAUNDRY HELPER proced ure are in CULTURE the results section. documented in this encounter Results HCG qualitative urine (06/07/2014 3:29 PM LAUNDRY HELPER) athologist Signature HCG Qual Urine Negative NEG [facility] Specimen Anatomical Collection Method Collection Time Receive d Time (Source) Location / / Volume Laterality Urine specimen URINE SPECIMEN 06/07/2014 3:29 PM 06/07 4:24 (specimen) OBTAINED BY CLEAN LAUNDRY HELPER PM LAUNDRY HELPER CATCH PROCEDURE / Unknown Quintin Castro MD LAB - URINE ORDERABLES Performing Organization Address City/State/ZIP Code Phon e Number M [facility] [address] [id number] [facility] [address] [place], [place] [address] UA with microscopic reflex to culture (06/07/2014 3:29 PM LAUNDRY HELPER) [facility] Method Time Signature Color Urine Straw [facility] Appearance Urine Clear [facility] Glucose Urine Negative NEG mg/dL [facility] Bilirubin Urine Negative NEG [facility] Ketones Urine Negative NEG mg/dL [facility] Specific [place] 1.007 1.003 - [place] Urine 1.035 [facility] Blood Urine Negative NEG [facility] pH Urine 5.0 5.0 - 7.0 [place] pH [facility] Protein Albumin Negative NEG mg/dL [facility] Urobilinogen Normal 0.0 - 2.0 [place] mg/dL mg/dL [facility] Nitrite Urine Negative NEG [facility] Leukocyte Negative NEG [place] Esterase Urine [facility] Source Midstream [facility] WBC Urine <1 0 - 2 [place] [facility] RBC Urine <1 0 - 2 [place] [facility] Squamous <1 0 - 1 [place] Epithelial /HPF /HPF [facility] Specimen Anatomical Collection Method Collection Time Receive d Time (Source) Location / / Volume Laterality Urine specimen URINE SPECIMEN 06/07/2014 3:29 PM 06/07 4:24 (specimen) OBTAINED BY CLEAN LAUNDRY HELPER PM LAUNDRY HELPER CATCH PROCEDURE / Unknown Quintin Castro MD LAB - URINE ORDERABLES Performing Organization Address City/State/ZIP Code Phon e Number M [place] [address] [address] [place] [phone] documented in this encounter Visit Diagnoses Diagnosis Chronic pelvic pain in female Unspecified symptom associated with fema le genital organs documented in this encounter Administered Medications Inactive Administered Medications - up to 3 most recent administrations Medication Order MAR Action Action Date Dose Rate Site ibuprofen (ADVIL,MOTRIN) tablet Given 06/07/2014 4:13 PM LAUNDRY HELPER 600 mg 600 mg 600 mg, Oral, ONCE, On Fri06/07/14 at 1611, For 1 dose oxyCODONE-acetaminophen (PERCOCET) 5-325 MG Given 05/16 4:13 PM LAUNDRY HELPER 1 tablet per tablet 1 tablet 1 tablet, Oral, ONCE, On Fri06/07/14 at 1611, For 1 dose, Maximum acetaminophen dose from all sources= 75 mg/kg/day not to exceed 4 grams documented in this encounter Active and Recently Administered Medications Times are shown in LAUNDRY HELPER. Scheduled Medication Order 06/05/2014 06/06/2014 06/07/2014 ibuprofen (ADVIL,MOTRIN) tablet 600 mg (COMPLETED) 1613 (Given - Provider: Brittney Cano, ANGE) 600 mg, Oral, ONCE, 06/07/14 at 1611, For 1 dose oxyCODONE-acetaminophen (PERCOCET) 5-325 MG per tablet 1 tablet (COMPLETED) 1613 (Given - Provider: Brittney Cano RN) 1 tablet, Oral, ONCE, 06/07/14 at 161 1, For 1 dose, Maximum acetaminophen dose from all sources= 75 mg/kg/day not to exceed 4 grams documented in this encounter Care Teams Admission Specialist Relationship Specialty Start Date End Date Jamin Silva MD PCP - General Family Medicine - Sports 06/01/13 Medicine documented as of this encounter
--- OUTSIDE RECORDS SUMMARY | 2022-01-31 19:39 | XMS_ITS | Encounter Summary ---
:1980 Author Organization [place] Address [address] [place] [address] Care Team Providers Name Role Phone Clinic, [facility] ([place], [place]) Primary Care Provide r Reason for Visit Reason Comments Shoulder Pain Encounter Details Date Type Department Care Team Description 12/30/2020 Emergency [facility] Quintin Houser, J[place] n[place]qs[place] pain of left shoulder (Primary Dx); [facility] Emergency Dep t MD Darling, initial encounter [address] [facility] [place], [place] [address] [address] [phone] [address] [place], [place] [address] (Wo rk) Social History Tobacco Use Types [...] follow up in about one week with [facility] Orthopaedics for rotator cuff evaluation. AttachmentsThe following attachments cannot be sent through Care Everywhere.RICE (Lao)Shoulder Immobilizer (Lao)documented in this encounter Medications at Time of [...] for muscle relaxation. Re commended follow-up with [facility] orthopedics as an outpatient for further evaluation [...] Houser MD Roach, Brian Donald, MD 12/30/20 2983 Gloria Child MD - 12/30/2020 5:09 PM [...] no history of injury or surgery in [place], allergies to Vicodin but tolerates percocet. Review [...] with shoulder immobilizer, recommend follow up with [facility]opa[facility] in about a week for further evaluation. Interventions: Medications ketorolac (TORADOL) injection 15 mg (15 mg Intravenous Given 12/30/201825) cyclobenzaprine (FLEXERIL) tablet 10 mg (10 mg Oral Given 12/30/201825) acetaminophen (TYLENOL) tablet 975 mg (975 mg Oral Given 12/30/202034) oxyCODONE (ROXICODONE) tablet 5 mg (5 mg Oral Given 12/30/202034) Disposition: Discharge to home with follow up at [facility]. Impression & Plan Medical Decision Making: [...] and would benefit from outpatient evaluation with [facility]opa[facility]. She will be discharged to home [...] XR WRIST LEFT G/E 3 VIEWS LOCATION: [facility] DATE/TIME: 12/30/2020 7:48 PM INDICATION: fall with pop and wrist limi heather ROM COMPARISON: None. Procedure Note Galan, Shon Benjy, MD - 12/30/2020F ormatting of this note might be different from the original. EXAM: XR WRIST LEFT G/E 3 VIEWS LOCATION: [facility] DATE/TIME: 12/30/2020 7:48 PM INDICATION: fall with pop and wrist limi heather ROM COMPARISON: None. IMPRESSION: Normal joint spaces and alig nment. No fracture. Gloria Child MD [facility] DIAGNOSTIC IMAGING ORD [...] XR SHOULDER LEFT G/E 3 VIEWS LOCATION: [facility] DATE/TIME: 12/30/2020 7:23 PM INDICATION: fell with pop and pain with ROM COMPARISON: None. Procedure Note Shon Galan MD - 12/30/2020F ormatting of this note might be different from the original. EXAM: XR SHOULDER LEFT G/E 3 VIEWS LOCATION: [facility] DATE/TIME: 12/30/2020 7:23 PM INDICATION: fell with pop and pain with ROM COMPARISON: None. IMPRESSION: Normal joint spaces and alig nment. No fracture. Gloria Child MD [facility] DIAGNOSTIC IMAGING ORD [...] XR ELBOW LEFT G/E 3 VIEWS LOCATION: [facility] DATE/TIME: 12/30/2020 7:22 PM INDICATION: Fall with limited ROM at L e lbow COMPARISON: None. Procedure Note Shon Galan MD - 12/30/2020F ormatting of this note might be different from the original. EXAM: XR ELBOW LEFT G/E 3 VIEWS LOCATION: [facility] DATE/TIME: 12/30/2020 7:22 PM INDICATION: Fall with [...] 5 mg, Oral, ONCE, On 12/30/20 at 203, For 1 dose documented in this encounter [...] documented in this encounter Care Teams Cell Room Supervisor Relationship Specialty Start Date End Date [facility] ([place], [place]) PCP - General 12/30/[address] [place] [address] documented as of this encounter
--- OUTSIDE RECORDS SUMMARY | 2022-01-31 19:39 | XMS_ITS | Encounter Summary ---
:1980 Author Organization [place] Address [address] [place] [address] Care Team Providers Name Role Phone Ratna Mackey MD Primary Care Provider Reason for Visit Reason Comments Abdominal Pain Encounter Details Date Type Department Care Team Description 03/07/2015 Emergency [facility] Luis Villatoro Ch ronic pelvic pain [facility] [facility] t in female [address] [facility] [place] [address] [address] [phone] [address] [place], [place] [phone] (Wo rk) Social History Tobacco Use Types Packs/Day Years Used Date Smoking Tobacco: Some Days Cigarettes 0.3 Alcohol Use Standard Drinks/Week Comments No 0 (1 standard drink = 0.6 oz pure alcoho l) Sex Assigned at Date Recorded Not on file documented as of this encounter Last Filed Vital Signs Vital Sign Reading Time Taken Comments Blood Pressure 117/92 03/07/2015 3:54 PM DATA ENTRY ANALYST Pulse 75 03/07/2015 3:54 PM DATA ENTRY ANALYST Temperature 37.2 ??C (98.9 ??F) 03/07/2015 3:54 PM DATA ENTRY ANALYST Respiratory Rate 20 03/07/2015 3:54 PM DATA ENTRY ANALYST Oxygen Saturation 99% 03/07/2015 3:54 PM DATA ENTRY ANALYST Inhaled Oxygen Concentration - - Weight 77.6 kg (171 lb) 03/07/2015 3:54 PM DATA ENTRY ANALYST Height 167.6 cm (5' 6) 03/07/2015 3:54 PM DATA ENTRY ANALYST Body Mass Index 27.6 03/07/2015 3:54 PM DATA ENTRY ANALYST documented in this encounter Discharge Instructions Discharge [...] if there is anything that worries you. ENTRY ANALYST documented in this encounter Medications at Time [...] and she was last seen here at [facility] one month ago at which time it [...] reviewed. I reviewed the patient's chart in [email or web address]. 161 - I performed an exam of [...] observations and the provider's statements to me. [facility] EMERGENCY DEPARTMENT Luis Villatoro MD 03/08/15 1257 ENTRY ANALYST Natalia Coon RN - 03/07/2015 3:52 PM CST Lower left abdominal pain that began about 1 year ago. Nauseated but no vomiting. Ibuprofen taken at9am. Patient alert and oriented x3. Airway, breathing and circulation intact. ENTRY ANALYST documented in this encounter Plan of Treatment Not on filedocumented as of this encounter Procedures Procedure Name Priority Date/Time Associated Comments Diagnosis HCG QUALITATIVE URINE STAT 03/07/2015 4:05 PM Chronic pelvi c pain Results for this DATA ENTRY ANALYST in female procedure are i n the results section. ROUTINE UA WITH STAT 03/07/2015 4:05 PM Chronic pelvic pain Results for this MICROSCOPIC DATA ENTRY ANALYST in female procedure are i n the results section. documented in this encounter Results HCG qualitative urine (03/07/2015 4:05 PM DATA ENTRY ANALYST) P athologist Signature HCG Qual Urine Negative NEG [facility] Specimen Anatomical Collection Method Collection Time Receive d Time (Source) Location / / Volume Laterality Urine specimen URINE SPECIMEN 03/07/2015 4:05 PM 03/07 4:14 (specimen) OBTAINED BY CLEAN DATA ENTRY ANALYST PM DATA ENTRY ANALYST CATCH PROCEDURE / Unknown Luis Villatoro MD LAB - URINE ORDERABLES Performing Organization Address City/State/ZIP Code Phon e Number [facility] [address] [place], [place] [address] [facility] [address] [address] [phone] (ABNORMAL) Routine UA with microscopic (03/07/2015 4:05 PM DATA ENTRY ANALYST) [facility] Method Time Signature Color Urine Light Yellow [facility] Appearance Urine Clear [facility] Glucose Urine Negative NEG mg/dL [facility] Bilirubin Urine Negative NEG [facility] Ketones Urine Negative NEG mg/dL [facility] Specific [place] 1.018 1.003 - [place] Urine 1.035 [facility] Blood Urine Negative NEG [facility] pH Urine 6.0 5.0 - 7.0 [facility] Protein Albumin Negative NEG mg/dL [facility] Urobilinogen Normal 0.0 - 2.0 [place] mg/dL mg/dL [facility] Nitrite Urine Negative NEG [facility] Leukocyte Small (A) NEG [place] Esterase Urine [facility] Source Midstream [facility] WBC Urine 1 0 - 2 [place] /HPF [facility] RBC Urine 1 0 - 2 [place] /HPF [facility] Bacteria Urine Few (A) NEG /HPF [facility] Squamous 3 (H) 0 - 1 [place] Epithelial /HPF /HPF [facility] Mucous Urine Present (A) NEG /LPF [facility] Specimen Anatomical Collection Method Collection Time Receive d Time (Source) Location / / Volume Laterality Urine specimen URINE SPECIMEN 03/07/2015 4:05 PM 03/07 4:14 (specimen) OBTAINED BY CLEAN DATA ENTRY ANALYST PM DATA ENTRY ANALYST CATCH PROCEDURE / Unknown Luis Villatoro MD LAB - URINE ORDERABLES Performing Organization Address City/State/ZIP Code Phon e Number M [facility] [address] [place], [place] [address] [facility] [address] [address] [phone] documented in this encounter Visit Diagnoses Diagnosis Chronic pelvic pain in female Unspecified symptom associated with fema le genital organs documented in this encounter Administered Medications Inactive Administered Medications - up to 3 most recent administrations Medication Order MAR Action Action Date Dose Rate Site oxyCODONE-acetaminophen Given 03/07/2015 4:17 PM DATA ENTRY ANALYST 2 tablets (PERCOCET) 5-325 MG per tablet 2 tablet 2 tablet, Oral, ONCE, On Fri03/07/15 at 1616, For 1 dose, Maximum acetaminophen dose from all sources= 75 mg/kg/day not to exceed 4 grams documented in this encounter Active and Recently Administered Medications Times are shown in DATA ENTRY ANALYST. Scheduled Medication Order 03/05/2015 03/06/2015 03/07/2015 oxyCODONE-acetaminophen (PERCOCET) 5-325 MG per tablet 2 tablet (COMPLETED) 1617 (Given - Provider: Fadi Ledezma RN) 2 tablet, Oral, ONCE, Fri03/07/15 at 16 16, For 1 dose, Maximum acetaminophen dose from all sources= 75 mg/kg/day not to exceed 4 grams documented in this encounter Care Teams Software Developer Consultant Relationship Specialty Start Date End Date Ratna Mackey MD PCP - General Family Practice 03/07/15 12/29/20 [facility] [place] [address] [facility] [address] documented as of this encounter
--- OUTSIDE RECORDS SUMMARY | 2022-01-31 19:39 | XMS_ITS | Encounter Summary ---
:1980 Author Organization [place] Address [address] [place] [address] Care Team Providers Name Role Phone Ratna Mackey MD Primary Care Provider Encounter Details Date Type Department Care Team Description 09/05/2020 Records - [facility] CONVERSION Provider, Histor ical Social History [...] 03/24/2000 12:00 AM Re sults for this PRINCIPAL PRODUCT MANAGER procedure are i n the results section. documented in this encounter Results XR Abdomen 2 Views (03/24/2000 12:00 AM PRINCIPAL PRODUCT MANAGER) Anatomical Region Laterality Modality Abdomen/Pelvis Other Specimen (Source) Anatomical Location Collection Method / Collectio n Time Received Time / Laterality Volume Narrative 03/24/2000 12:00 AM PRINCIPAL PRODUCT MANAGER See Historical Hospital Medical Record f or documentation Procedure Note Provider, Historical - 09/05/2020Formatt ing of this note might be different from the original. See Historical Hospital Medical Record f or documentation Historical Provider IMG DIAGNOSTIC IMAGING ORDER BRIDGETT documented in this encounter Visit Diagnoses Not on filedocumented in this encounter Care Teams Or Manager Relationship Specialty Start Date End Date Ratna Mackey MD PCP - General Family Practice 03/07/15 12/29/20 [facility] [id number] [place] [id number] documented as of this encounter
--- OUTSIDE RECORDS SUMMARY | 2022-01-31 19:39 | XMS_ITS | Encounter Summary ---
:1980 Author Organization [place] Address [address] [place] [address] Care Team Providers Name Role Phone [facility] Primary Care Provide r Encounter Details Date [...] on filedocumented in this encounter Care Teams Director Presales Relationship Specialty Start Date End Date [facility] PCP - General 12/30/201999 [facility] [place] [address] documented as of this encounter
--- OUTSIDE RECORDS SUMMARY | 2022-01-31 19:39 | XMS_ITS | Encounter Summary ---
:1980 Author Organization [place] Address [address] [place] [id number] Care Team Providers Name Role Phone Ratna Mackey MD Primary Care Provider Reason for Visit Reason Comments Constipation Encounter Details Date Type Department Care Team Description 11/13/2015 Emergency [facility] Krysta Pantoja MD Constipation, [facility] Emergency Dep t EMERGENCY PHYSICIANS unspecified [address] constipation type [place], [place] [address] [facility] [id number] [place] [address] [phone] (Wo rk) Social History Tobacco Use Types [...] contain Tylenol?? (acetaminophen), including Vicodin??, Tylenol #3??, Aladdin??, Lortab??, and Percocet??. You should not take [...] CDT Enema completed per Kelly Burr, nursing sports intern with supervision. Lab currently drawing specimens, [...] WNL HCG Qualitative Urine: Negative Interventions: 2025 [place] Enema 186mL Rectal Emergency Department Course: [...] tablet, R-0, Local Print Scribe Disclosure: Christine Miranda, am serving as a scribe at 7:31 PM on 11/13/2015 to document services personally performed by Krysta Pantoja MD, based on my observations and the provider's statements to me. 11/13/2015 [facility] EMERGENCY DEPARTMENT Krysta Pantoja MD 11/14/15 [address] Alfredo RN - 11/13/2015 6:42 PM [...] athologist Signature HCG Qual Urine Negative NEG [facility] Specimen Anatomical Collection Method Collection Time Receive d Time (Source) Location / / Volume Laterality Urine specimen URINE SPECIMEN 11/13/2015 8:25 PM 11/12 8:48 (specimen) OBTAINED BY CLEAN CDT PM CDT CATCH PROCEDURE / Unknown Krysta Pantoja MD LAB - URINE ORDERABLES Performing Organization Address City/State/ZIP Code Phon e Number M [facility] [address] [place], [place] [address] [facility] [address] [place] [id number] [facility] [phone] UA with Microscopic (11/13/2015 8:25 PM CDT) [facility] Method Time Signature Color Urine Straw [facility] Appearance Urine Slightly [place] Cloudy [facility] Glucose Urine Negative NEG mg/dL [facility] Bilirubin Urine Negative NEG [facility] Ketones Urine Negative NEG mg/dL [facility] Specific [place] 1.006 1.003 - [place] Urine 1.035 [facility] Blood Urine Negative NEG [facility] pH Urine 7.0 5.0 - 7.0 [place] pH [facility] Protein Albumin Negative NEG mg/dL [facility] Urobilinogen Normal 0.0 - 2.0 [place] mg/dL mg/dL [facility] Nitrite Urine Negative NEG [facility] Leukocyte Negative NEG [place] Esterase Urine [facility] Source Midstream [facility] WBC Urine <1 0 - 2 [facility] RBC Urine 0 0 - 2 [facility] Squamous 1 0 - 1 [facility] Specimen Anatomical Collection Method Collection Time Receive d Time (Source) Location / / Volume Laterality Urine specimen URINE SPECIMEN 11/13/2015 8:25 PM 11/12 8:48 (specimen) OBTAINED BY CLEAN CDT PM CDT CATCH PROCEDURE / Unknown Krysta Pantoja MD LAB - URINE ORDERABLES Performing Organization Address City/State/ZIP Code Phon e Number [facility] [address] [place], [place] [address] [place] [address] [address] [place] [address], [facility] [phone] Lipase (11/13/2015 8:19 PM CDT) P athologist Signature Lipase 93 73 - 393 [facility] U/L [facility] Specimen Anatomical Collection Method Collection Time Receive d Time (Source) Location / / Volume Laterality Blood specimen 11/13/2015 8:19 PM 016 8:26 (specimen) CDT PM CDT Krysta Pantoja MD LAB - BLOOD ORDERABLES Performing Organization Address City/[facility]/ZIP [facility] Phon e Number [facility] [address] [place], [place] [address] [facility] [address] [place] [id number] [phone], [facility] [phone] (ABNORMAL) Comprehensive metabolic panel (11/13/2015 8:19 PM CDT) Patholo gist Method Time Signature Sodium 141 133 - 144 [place] mmol/L [facility] Potassium 4.4 3.4 - 5.3 [place] mmol/L [facility] Chloride 109 94 - 109 [place] mmol/L [facility] Carbon Dioxide 27 20 - 32 [place] mmol/L [facility] Anion Gap 5 3 - 14 [place] mmol/L [facility] Glucose 123 (H) 70 - 99 [place] mg/dL [facility] Urea Nitrogen 7 7 - 30 [place] mg/dL [facility] Creatinine 0.63 0.52 - [place] 1.04 [facility] mg/dL [facility] GFR Estimate >90 >60 [place] Non GFR Calc mL/min/1. [place] [id number] [facility] GFR Estimate If >90 >60 [place] Black GFR Calc mL/min/1. RIDG ES 7m2 [facility] Calcium 8.7 8.5 - [place] 10.1 [facility] mg/dL [facility] Bilirubin Total 0.3 0.2 - 1.3 [place] mg/dL [facility] Albumin 3.4 3.4 - 5.0 [place] g/dL [facility] Protein Total 6.9 6.8 - 8.8 [place] g/dL [facility] Alkaline 72 40 - 150 [place] Phosphatase U/L [facility] ALT 28 0 - 50 [place] U/L [facility] AST 17 0 - 45 [place] U/L [facility] Specimen Anatomical Collection Method Collection Time Receive d Time (Source) Location / / Volume Laterality Blood specimen 11/13/2015 8:19 PM 016 8:26 (specimen) CDT PM CDT Krysta Pantoja MD LAB - BLOOD ORDERABLES Performing Organization Address City/State/ZIP Code Phon e Number M [facility] [address] [place], [place] [address] [facility] [address] [phone] (ABNORMAL) CBC + differential (11/13/2015 8:19 PM CDT) [facility] Method Time Signature WBC 10.1 4.0 - [facility] 11.0 [facility] 10e9/L [facility] RBC Count 4.81 3.8 - 5.2 [place] 10e12/L [facility] Hemoglobin 14.1 11.7 - [place] 15.7 g/dL [facility] Hematocrit 43.2 35.0 - [place] 47.0 % [facility] MCV 90 78 - 100 [place] fl [facility] MCH 29.3 26.5 - [place] 33.0 pg [facility] MCHC 32.6 31.5 - [place] 36.5 g/dL [facility] RDW 12.9 10.0 - [place] 15.0 % [facility] Platelet Count 256 150 - [address] Diff Method Automated [place] Method [facility] % Neutrophils 83.6 % [facility] % Lymphocytes 10.8 % [facility] % Monocytes 4.6 % [facility] % Eosinophils 0.4 % [facility] % Basophils 0.2 % [facility] % Immature 0.4 % [place] Granulocytes [facility] Nucleated RBCs 0 0 /100 [facility] Absolute 8.4 (H) 1.6 - 8.3 [place] Neutrophil [address] [place] [address] Absolute 1.1 0.8 - 5.3 [place] Lymphocytes [address] [place] [address] Absolute 0.5 0.0 - 1.3 [place] Monocytes [address] [place] [address] Absolute 0.0 0.0 - 0.7 [place] Eosinophils [address] [place] [address] Absolute 0.0 0.0 - 0.2 [place] Basophils [address] [place] [address] Abs Immature 0.0 0 - 0.4 [place] Granulocytes [address] [place] [address] Absolute 0.0 [place] Nucleated RBC [facility] Specimen Anatomical Collection Method Collection Time Receive d Time (Source) Location / / Volume Laterality Blood specimen 11/13/2015 8:19 PM 016 8:26 (specimen) CDT PM CDT Krysta Pantoja MD LAB - BLOOD ORDERABLES Performing Organization Address City/State/ZIP Code Phon e Number M [facility] [address] [place], [place] [address] [facility] [address] [place], [place] [address], [facility] [phone] Abdomen XR, 2 vw, flat and upright (11/13/2015 7:43 PM CDT) Anatomical Region Laterality Modality Abdomen/Pelvis Computed Radiography Specimen (Source) Anatomical Location Collection Method / Collectio n Time Received Time / Laterality Volume Impressions 11/13/2015 9:04 PM CDT IMPRESSION: Constipation. FOX RYAN MD Narrative 11/13/2015 9:04 PM CDT ABDOMEN TWO VIEWS ??11/13/2015 7:43 PM HISTORY: Constipation. COMPARISON: None. FINDINGS: Large amount of fecal material in the colon. No evidence for obstruction. No free intraperitoneal air . Procedure Note Fox Ryan MD - 11/13/2015Forma tting of this note might be different from the original. ABDOMEN TWO VIEWS 11/13/2015 7:43 PM HISTORY: Constipation. COMPARISON: None. FINDINGS: Large amount of fecal material in the colon. No evidence for obstruction. No free intraperitoneal air . IMPRESSION: Constipation. FOX RYAN MD Shahram Solano Renteria DO IMG DIAGNOSTIC IMAGING ORDER BRIDGETT [...] contamination. documented in this encounter Care Teams Manufacturing Controller Relationship Specialty Start Date End Date Ratna Mackey MD PCP - General Family Practice 03/07/15 12/29/20 [facility] [address] [facility] [place] [address] documented as of this encounter
--- OUTSIDE RECORDS SUMMARY | 2022-01-31 19:39 | XMS_ITS | Encounter Summary ---
:1980 Author Organization [place] Address [address] [place] [address]. [place] [address] Care Team Providers Name Role Phone Ratna Mackey MD Primary Care Provider Reason for Visit Reason Comments Other patient complaining of breas t pain Encounter Details Date Type Department Care Team Description 01/15/[address] [facility] Shahram Renteria, Cellulitis of right [place] Emergency Dep t DO breast [address] [facility] [id number] [address] [phone] [place], [place] [address] (Wo rk) Social History Tobacco Use Types [...] documented in this encounter Discharge Instructions Discharge Andrew Shahram Russ, - 01/15/2016 11:35 PM CDT Images from [...] are in pain. Ask what kind of [id number] medication you can takefor pain. ?? Apply [...] or pus draining from the area ?? [id number] [employer]. [address] [place] [address], [place] [address]. All rights reserved. This information is not [...] R-0, Local Print Shahram Renteria D.O. 01/15/2016 [facility] EMERGENCY [facility]PART[facility] Shahram Renteria DO 01/16/16 0037 [...] / Laterality Volume Impressions 03/12/2016 7:49 AM LAB SUPPORT TECHNICIAN IMPRESSION: BI-RADS CATEGORY: 1 - ??Negative. RECOMMENDED FOLLOW-UP: Clinical follow-u hollis MCDOWELL MD Narrative 03/12/2016 7:49 AM LAB SUPPORT TECHNICIAN DIAGNOSTIC ULTRASOUND RIGHT BREAST, 03/12/2016 7:49 AM. [...] 600 mg 600 mg, Oral, ONCE, On 01/15/16 at 2216, For 1 dose documented in this encounter Active and Recently Administered Medications Times are shown in CDT. Scheduled Medication Order 01/13/2016 01/14/2016 01/15/2016 cephALEXin (KEFLEX) capsule 500 mg (COMPLETED) 2344 (Given - Provider: Lorelei Gold RN) 500 mg, Oral, ONCE, 01/15/16 at 2335, For 1 dose, Indications: Skin and Soft Tissue Infection ibuprofen (ADVIL,MOTRIN) tablet 600 mg (COMPLETED) 2218 (Given - Provider: Lorelei Gold RN) 600 mg, Oral, ONCE, 01/15/16 at 2216, For 1 dose documented in this encounter Care Teams Brake Operator Helper Relationship Specialty Start Date End Date Ratna Mackey MD PCP - General Family Practice 03/07/15 12/29/20 [facility] [address] [facility] [place] [address] documented as of this encounter
--- OUTSIDE RECORDS SUMMARY | 2022-01-31 19:39 | XMS_ITS | Encounter Summary ---
:1980 Author Organization [employer] Address [address] [place] [address] Care Team Providers Name Role Phone Jamin Silva MD Primary Care Provider Reason for Visit Reason Comments Abdominal Pain Encounter Details Date Type Department Care Team Description 02/01/2015 Emergency [facility] Roberto Carlos Escobedo C hronic abdominal pain; [facility] Emergency Dep t PID (acute pelvic inflammatory disease); [address] [facility] Bacterial vaginosis [facility] [id number] 5439 [facility] [phone] [place], [place] [address] (Wo rk) Social History [...] directed by your doctor today. Before using [id number] medications, ask your doctor and make sure [...] sent through Care Everywhere. PELVIC INFLAMMATORY DISEASE (SYRIAN)VAGINITIS, BACTERIAL (SYRIAN)documented in this encounter Medications at Time of [...] RN - 02/01/2015 11:38 AM CDT Assisted MD carney/pelvic exam. Pt tolerated well. 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 02/01/2015 [facility] EMERGENCY DEPARTMENT Roberto Carlos Escobedo MD 02/01/15 [...] HCG qualitative urine (02/01/2015 12:15 PM CDT) athologist Signature HCG Qual Urine Negative NEG [facility] Specimen Anatomical Collection Method Collection Time Receive d Time (Source) Location / / Volume Laterality Urine specimen URINE SPECIMEN 02/01/2015 12:15 015 (specimen) OBTAINED BY CLEAN PM CDT 12:27 PM C DT CATCH PROCEDURE / Unknown Roberto Carlos Escobedo MD LAB - URINE ORDERABLES Performing Organization Address City/[facility]/ZIP [facility] Phon e Number M [facility] [address] [place], [place] [address] [facility] [address] [place] [address] [facility] [phone] (ABNORMAL) Routine UA with microscopic (02/01/2015 12:15 PM CDT) [facility] Method Time Signature Color Urine Light Yellow [facility] Appearance Urine Clear [facility] Glucose Urine Negative NEG mg/dL [facility] Bilirubin Urine Negative NEG [facility] Ketones Urine Negative NEG mg/dL [facility] Specific [place] 1.016 1.003 - [place] Urine 1.035 [facility] Blood Urine Negative NEG [facility] pH Urine 6.0 5.0 - 7.0 [place] pH [facility] Protein Albumin Negative NEG mg/dL [facility] Urobilinogen Normal 0.0 - 2.0 [place] mg/dL mg/dL [facility] Nitrite Urine Negative NEG [facility] Leukocyte Negative NEG [place] Esterase Urine [facility] Source Midstream [facility] WBC Urine 0 0 - 2 [place] /HPF [facility] RBC Urine 1 0 - 2 [facility] /HPF [facility] Squamous 1 0 - 1 [place] Epithelial /HPF /HPF [facility] Mucous Urine Present (A) NEG /LPF [facility] Specimen Anatomical Collection Method Collection Time Receive d Time (Source) Location / / Volume Laterality Urine specimen URINE SPECIMEN 02/01/2015 12:15 015 (specimen) OBTAINED BY CLEAN PM CDT 12:27 PM C DT CATCH PROCEDURE / Unknown Roberto Carlos Escobedo MD LAB - URINE ORDERABLES Performing Organization Address City/[facility] Phon e Number M [facility] [address] [place], [place] [address] [facility] [address] [place] [id number] 7, [facility] [phone] Chlamydia trachomatis PCR (02/01/2015 11:38 AM CDT) Component Value Ref Test Analysis Performed At [facility] Range Method Time Signature Specimen Vagina [facility] Chlamydia Negative NEG [facility] Trachomatis Negative for C. trachomatis rRNA by front desk officer mediated amplification. [place] [facility] PCR A negative result by transc [...] MICRO GENERAL ORDERABL ES Performing Organization Address City/[facility]/ZIP Code Phon e Number [address] [place] [address] 7, [facility] [phone] Neisseria gonorrhoeae PCR (02/01/2015 11:38 AM CDT) Component Value Ref Test Analysis Performed At [facility] Method Time Signature Specimen Vagina [facility] N Gonorrhea Negative NEG [facility] PCR Negative for N. gonorrhoeae rRNA by transcripti on mediated amplification. [place] [facility] A negative result by transc ription [...] MICRO GENERAL ORDERABL ES Performing Organization Address City/[facility]/ZIP Code Phon e Number [address] [place] [address] 7, [facility] [phone] (ABNORMAL) Wet prep (02/01/2015 11:38 AM CDT) [facility] Method Time Signature Specimen Vagina [facility] Wet Prep No Trichomonas seen [place] Clue cells seen [facility] No yeast seen [facility] Few WBC'S seen (A) Micro Report FINAL [place] Status 02/01/2015 [facility] Specimen Anatomical Collection Method Collection Time Receive d Time (Source) Location / / Volume Laterality Specimen from 02/01/2015 11:38 02/01/2015 vagina AM CDT 11:39 AM CDT (specimen) Roberto Carlos Escobedo MD LAB - MICRO GENERAL ORDERABL ES Performing Organization Address City/State/ZIP Code Phon e Number M [place] [address] [address] [place], [place] [address] [facility] [address] [place], [place] [address] 7, [facility] [phone] documented in this encounter Visit Diagnoses Diagnosis [...] grams documented in this encounter Care Teams Cleaners Relationship Specialty Start Date End Date Jamin Silva MD PCP - General Family Medicine - Sports 06/01/13 Medicine documented as of this encounter
--- OUTSIDE RECORDS SUMMARY | 2022-01-31 19:39 | XMS_ITS | Encounter Summary ---
:1980 Author Organization [employer] Address [address] [place] [address] Care Team Providers Name Role Phone Ratna Mackey MD Primary Care Provider Reason for Visit Reason Comments Dizziness Encounter Details Date Type Department Care Team Description 09/22/2015 [facility] Shon Patel Internal hemorrhoid, bleeding; [facility] Emergency MD [facility] Dept EMERGENCY PHYSICIANS [address] [place], [place] [address] [facility] [phone] [place] [address] [place] [address] (Wo rk) Social History Tobacco Use Types [...] canal. This can be due to: ?? [phone] [employer]. [address] [place] [address], [place] [address]. All rights reserved. This information is not [...] peggy. These are available at most drugstores. Kjrm-thi-bjyvsan hemorrhoid ointments and petroleum jelly can also [...] plenty of water when you exercise. ?? [phone] [employer]. [address] [place] [address]. All rights reserved. This information is not [...] Place rectally At Bedtime Andres Miller 09/22/2015 [facility] EMERGENCY DEPARTMENT I, Andres Miller, am serving as a scribe at 1:32 PM on 09/22/2015 to document services personally performed by Shon Patel MD based on my observations and the provider's statements Shon Lomax MD 09/22/15 1521 Dorie Paulson RN - [...] Basic metabolic panel (09/22/2015 1:40 PM CDT) athologist Signature Sodium 140 133 - 144 [place] mmol/L [facility] Potassium 3.8 3.4 - 5.3 [place] mmol/L [facility] Chloride 108 94 - 109 [place] mmol/L [facility] Carbon Dioxide 25 20 - 32 [place] mmol/L [facility] Anion Gap 7 3 - 14 [place] mmol/L [facility] Glucose 115 (H) 70 - 99 [place] mg/dL [facility] Urea Nitrogen 10 7 - 30 [place] mg/dL [facility] Creatinine 0.92 0.52 - [place] 1.04 mg/dL [facility] GFR Estimate 70 >60 [place] mL/min/1.[address] Comment: Non GFR Calc GFR Estimate If Black 84 >60 mL/min/1.7m2 F [facility] Comment: GFR Calc Calcium 9.1 8.5 - 10.1 mg/dL [facility] Specimen Anatomical Collection Method Collection Time Receive d Time (Source) Location / / Volume Laterality Blood specimen 09/22/2015 1:40 PM 016 1:43 (specimen) CDT PM CDT Shon Patel MD LAB - BLOOD ORDERABLES Performing Organization Address City/State/ZIP Code Phon e Number M [place] [address] [address] [place] [address] [facility] [address] [phone] CBC with platelets differential (09/22/2015 1:40 PM CDT) Patholo gist Method Time Signature WBC 7.3 4.0 - [place] 11.0 [facility] 10e9/L [facility] RBC Count 4.99 3.8 - 5.2 [place] 10e12/L [facility] Hemoglobin 15.1 11.7 - [place] 15.7 g/dL [facility] Hematocrit 42.7 35.0 - [place] 47.0 % [facility] MCV 86 78 - 100 [facility] MCH 30.3 26.5 - [place] 33.0 pg [facility] MCHC 35.4 31.5 - [place] 36.5 g/dL [facility] RDW 12.7 10.0 - [place] 15.0 % [facility] Platelet Count 254 150 - [address] Diff Method Automated [facility] % Neutrophils 71.6 % [facility] % Lymphocytes 19.4 % [facility] % Monocytes 7.3 % [facility] % Eosinophils 1.0 % [facility] % Basophils 0.4 % [facility] % Immature 0.3 % [place] Granulocytes [facility] Nucleated RBCs 0 0 /100 [facility] Absolute 5.2 1.6 - 8.3 [place] Neutrophil [address] [place] [address] Absolute 1.4 0.8 - 5.3 [place] Lymphocytes [address] [place] [address] Absolute 0.5 0.0 - 1.3 [place] Monocytes [address] [place] [address] Absolute 0.1 0.0 - 0.7 [place] Eosinophils [address] [place] [address] Absolute 0.0 0.0 - 0.2 [place] Basophils [address] [place] [address] Abs Immature 0.0 0 - 0.4 [place] Granulocytes [address] [place] [address] Absolute 0.0 [place] Nucleated RBC [facility] Specimen Anatomical Collection Method Collection Time Receive d Time (Source) Location / / Volume Laterality Blood specimen 09/22/2015 1:40 PM 016 1:43 (specimen) CDT PM CDT Shon Patle MD LAB - BLOOD ORDERABLES Performing Organization Address City/State/ZIP Code Phon e Number M [facility] [address] [place] [address] [facility] [address] [phone] documented in this encounter Visit Diagnoses Diagnosis [...] override documented in this encounter Care Teams Infant And Toddler Teacher Relationship Specialty Start Date End Date Ratna Mackey MD PCP - General Family Practice 03/07/15 12/29/20 [facility] [address] [place] [address] documented as of this encounter
--- OUTSIDE RECORDS SUMMARY | 2022-01-31 19:39 | XMS_ITS | Clinical Summary ---
:1980 Author Organization [facility] Address [address] [place] [address] Care Team Providers Name Role Phone Clinic, [facility] Primary Care Provide r Allergies Active [...] 1980 ANNUAL REVIEW OF HM ORDERS 1982 HEPATITIS B IMMUNIZATION (1 1982 of 3 - 3-dose series) YEARLY PREVENTIVE VISIT 1982 Pneumococcal Vaccine: 01/13/1988 [...] 06/14/2019, 12/09/2008 (3 - Td or Tdap) IPV IMMUNIZATION Aged Out No longer eligi ble based on patient 's age to complete this topic MENINGITIS IMMUNIZATION Aged Out No longe r eligible based on patient 's age to complete this topic Insurance Payer Benefit Plan / Subscriber ID Effective Dates Phone Addre ss Type Group BCBS BCBS OUT OF [id number] 2019-Present [phone] [address] [address] [place] [address] [phone] (Home) none (Work) Dante WILSON [id number] Care Teams Metal Engineering Process Worker Relationship Specialty Start Date End Date Clinic, [facility] Medical PCP - General 12/30/201999 [place] [address]
--- OUTSIDE RECORDS SUMMARY | 2022-01-31 19:40 | XMS_ITS | Encounter Summary ---
:1980 Author Organization [employer] Address [address] [place] [address] Care Team Providers Name Role Phone Jamin Silva MD Primary Care Provider Reason for Visit Reason Comments Abdominal Pain Encounter Details Date Type Department Care Team Description 02/12/2014 Emergency [facility] Ruth Pacheco Abdom inal pain, left lower quadrant (Primary Dx); [facility] Emergency Dep t MD [facility] [address] [facility] EMERGENCY PHYSICIANS [facility] [phone] 5567 [facility] [phone] [place], [place] [address] (Wo rk) Social History [...] directed by your doctor today. Before using [id number] medications, ask your doctor and make sure [...] contain Tylenol?? (acetaminophen), including Vicodin??, Tylenol #3??, [place]??, Lortab??, and Percocet??. You should not take [...] was otherwise unremarkable. She was discharged with [place] forpain, Zofran for nausea, and instructed to follow up with her PMD. The patient states that she was not able to see her doctor at [facility] until 02/15/14. Meanwhile, she has experienced intermittent pain in the left lower quadrant which has worsened since her last visit. It is a sharp, stabbing pain that radiates to the left lower back, worse with walking. She has tried [place] twice without relief and took ibuprofen 800 [...] concerns. Review of Past Medical Records: 02/08/14, [facility] ED CT abdomen and pelvis w/o contrast: [...] through Care Everywhere, as well as the [place] Prescription Monitoring Program. On 01/24/14, she signed a long- term controlled substance agreement for chronic chest, bilateral neck and back pain at [facility]. She has received 13 prescriptions for narcotics [...] to me. Ruth Pacheco MD 02/14/14 0954 LACE CUTTER MACHINE documented in this encounter Plan of Treatment [...] e Number M [facility] [address] [place], [place] [address] [facility] (ABNORMAL) UA with Microscopic (02/12/2014 2:44 PM CDT) [facility] gist Method Time Signature Color Urine Straw [facility] Appearance Urine Clear [facility] Glucose Urine Negative NEG mg/dL [facility] Bilirubin Urine Negative NEG [facility] Ketones Urine Negative NEG mg/dL [facility] Specific [place] 1.005 1.003 - [place] Urine 1.035 [facility] Blood Urine Negative NEG [facility] pH Urine 6.5 5.0 - 7.0 [place] pH [facility] Protein Albumin Negative NEG mg/dL [place] Urine [facility] Urobilinogen Normal 0.0 - 2.0 [place] mg/dL mg/dL [facility] Nitrite Urine Negative NEG [facility] Leukocyte Negative NEG [place] Esterase Urine [facility] Source Midstream [place] Urine [facility] WBC Urine 1 0 - 2 [facility] RBC Urine <1 0 - 2 [facility] Bacteria Urine Few (A) NEG /HPF [facility] Squamous <1 0 - 1 [place] Epithelial /HPF /HPF [facility] Mucous Urine Present [...] Organization Address City/State/ZIP Code Phon e Number [place] [address] [address] [place], [place] [address] [facility] CBC with platelets differential (02/12/2014 2:13 PM CDT) [facility] Method Time Signature WBC 7.0 4.0 - [place] 11.0 [facility] 10e9/L [facility] RBC Count 4.60 3.8 - 5.2 [place] 10e12/L [facility] Hemoglobin 13.6 11.7 - [place] 15.7 g/dL [facility] Hematocrit 40.4 35.0 - [place] 47.0 % [facility] MCV 88 78 - 100 [place] fl [facility] MCH 29.6 26.5 - [place] 33.0 pg [facility] MCHC 33.7 31.5 - [place] 36.5 g/dL [facility] RDW 13.0 10.0 - [place] 15.0 % [facility] Platelet Count 204 150 - [address] [place] [address] [place] [address] LAB Diff Method Automated [facility] % Neutrophils 71.0 % [facility] % Lymphocytes 22.0 % [facility] % Monocytes 6.1 % [facility] % Eosinophils 0.7 % [facility] % Basophils 0.1 % [facility] % Immature 0.1 % [facility] Granulocytes [facility] Absolute 5.0 1.6 - 8.3 [place] Neutrophil 10e9/L [facility] Absolute 1.6 0.8 - 5.3 [facility] Lymphocytes 10e9/L [facility] Absolute 0.4 0.0 - 1.3 [facility] Monocytes 10e9/L [facility] Absolute 0.1 0.0 - 0.7 [facility] Eosinophils 10eL [facility] Absolute 0.0 0.0 - 0.2 [place] Basophils 10eL [facility] Abs Immature 0.0 0 - 0.[address] [facility] Granulocytes [address] [place] [address] LAB Specimen Anatomical Collection Method Collection Time Receive d Time (Source) Location / / Volume Laterality Blood specimen 02/12/2014 2:13 PM 014 2:22 (specimen) CDT PM CDT Ruth Pacheco MD LAB - BLOOD ORDERABLES Performing Organization Address City/State/ZIP Code [facility] e Number M [address] [facility] Neisseria gonorrhoea PCR (02/12/2014 2:00 PM CDT) Component Value Ref Test Analysis Performed At [facility] Range Method Time Signature Specimen Pelvic [facility] LAB N Gonorrhea Negative NEG [facility] PCR [...] MICRO GENERAL ORDERAB LES Performing Organization Address City/[facility]/ZIP Code Phon e Number [address] [address] [facility] MICROBIOLOGY Chlamydia trachomatis PCR (02/12/2014 2:00 PM CDT) Component Value Ref Test Analysis Performed At [facility] [place] Range Method Time Signature Specimen Pelvic [facility] Chlamydia Negative NEG [facility] Trachomatis Negative for C. trachomatis rRNA by tool and die inspector mediated amplification. MICROBIOLOGY PCR A negative result [...] MICRO GENERAL ORDERAB LES Performing Organization Address City/[facility]/ZIP Code Phon e Number [facility] [address] [place] [address] [facility] MICROBIOLOGY Wet prep (02/12/2014 2:00 PM CDT) [facility] Method Time Signature Specimen Pelvic [facility] Wet Prep No clue cells seen [facility] No Trichomonas seen [place] No yeast seen [facility] Few WBC'S seen Micro Report FINAL [place] Status 02/12/2014 [facility] Specimen Anatomical Collection Method Collection Time Receive d Time (Source) Location / / Volume Laterality Vaginal swab 02/12/2014 2:00 PM 4 2:06 (specimen) CDT PM CDT Ruth Pacheco MD LAB - MICRO GENERAL ORDERAB LES Performing Organization Address City/State/ZIP Code Phon e Number [facility] [address] [place], [place] [address] [facility] documented in this encounter Visit [...] (COMPLETED) 1411 (New Bag - Provider: Krysta Rivers, RN)1639 (Stopped - Provider: Krysta Rivers, RN) Intravenous, 1,000 mL, ONCE, at 1,000 mL /hr, Administer over 1 Hours, On 02/12/14 at 1401, For 1 dose PRN Medication Order 02/10/2014 02/11/2014 02/12/2014 HYDROmorphone (PF) (DILAUDID) injection 0.5 mg (COMPLETED) 1411 (Given - Provider: Krysta Rivers RN) 0.5 mg, Intravenous, ONCE PRN, 1 dose, S tarting 02/12/14 at 1400, Until Discontinued, moderate to severe pain documented in this encounter Care Teams Green Marketing Analyst Relationship Specialty Start Date End Date Jamin Silva MD PCP - General Family Medicine - Sports 06/01/13 Medicine documented as of this encounter
--- OUTSIDE RECORDS SUMMARY | 2022-01-31 19:40 | XMS_ITS | Encounter Summary ---
:1980 Author Organization [facility] Address [address] [place] [address] Care Team Providers Name Role Phone Jamin Silva MD Primary Care Provider Reason for Visit Reason Comments Abdominal Pain Encounter Details Date Type Department Care Team Description 05/14/2014 Emergency [facility] Carlos Lee MD Chronic abdominal pain [facility] Emergency Dep t [facility] [address] [place], [place] [address] [facility] [address] [place] [address] [phone] (Wo rk) Social History Tobacco Use Types Packs/Day Years Used Date Smoking Tobacco: Every Day Cigarettes 0.3 Alcohol Use Standard Drinks/Week Comments No 0 (1 standard drink = 0.6 oz pure alcoho l) Sex Assigned at Date Recorded Not on file documented as of this encounter Last Filed Vital Signs Vital Sign Reading Time Taken Comments Blood Pressure 122/77 05/14/2014 5:07 PM WHITE LEAD FILTERER Pulse 103 05/14/2014 12:54 PM WHITE LEAD FILTERER Temperature 36.8 ??C (98.2 ??F) 05/14/2014 12:54 PM WHITE LEAD FILTERER Respiratory Rate 24 05/14/2014 12:54 PM WHITE LEAD FILTERER Oxygen Saturation 99% 05/14/2014 1:00 PM WHITE LEAD FILTERER Inhaled Oxygen Concentration - - Weight 77.1 kg (170 lb) 05/14/2014 12:54 PM WHITE LEAD FILTERER Height 167.6 cm (5' 6) 05/14/2014 12:54 PM WHITE LEAD FILTERER Body Mass Index 27.44 05/14/2014 12:54 PM WHITE LEAD FILTERER documented in this encounter Discharge Instructions Discharge [...] directed by your doctor today. Before using rasj-trx-ucuufkc medications, ask your doctor and make sure [...] contain Tylenol?? (acetaminophen), including Vicodin??, Tylenol #3??, [place]??, Lortab??, and Percocet??. You should not take [...] there is anything that worries you. E LEAD FILTERER documented in this encounter Medications at Time [...] - 05/14/2014 4:22 PM CST Pt sleeping. E LEAD FILTERER Meredith Garcia RN - 05/14/2014 4:22 PM CST td E LEAD FILTERER Ailin Lucas RN - 05/14/2014 2:22 PM CST Pt to U/S at this time. E LEAD FILTERER Carlos Lee MD - 05/14/2014 1:17 PM [...] nausea, vomiting, diarrhea, dysuria, or back pain. [facility] IMAGING CT ABDOMEN PELVIS W 05/13/2014 11:42 [...] as needed for nausea Prem Turner 05/14/2014 [facility] EMERGENCY DEPARTMENT I, Prem Turner, am serving as a scribe at 1:42 PM on 05/14/2014 to document services personally performed by Dr. Lee, based on my observations and the provider's statements to me. Carlos Lee MD 05/14/14 [id number] E LEAD FILTERER Lashae Valentine RN - 05/14/2014 12:56 PM CST Patient presents with severe left lower abdominal pain, rating her pain a 10 on a 1-10 scale. Of note, patient had an abdominal CT yesterday with normal results. Pain persists, increasing in severitylast evening. E LEAD FILTERER documented in this encounter Plan of Treatment Not on filedocumented as of this encounter Procedures Procedure Name Priority Date/Time Associated Comments Diagnosis OCCULT BLOOD STOOL STAT 05/14/2014 3:24 PM Chronic abdomina l Results for this WHITE LEAD FILTERER pain procedure are i n the results section. WET PREPARATION STAT 05/14/2014 3:24 PM Chronic abdominal R esults for this WHITE LEAD FILTERER pain procedure are i n the results section. NEISSERIA GONORRHOEAE STAT 05/14/2014 3:24 PM Chronic abdom inal Results for this PCR WHITE LEAD FILTERER pain procedure are i n the results section. CHLAMYDIA TRACHOMATIS STAT 05/14/2014 3:24 PM Chronic abdom inal Results for this PCR WHITE LEAD FILTERER pain procedure are i n the results section. US PELVIS COMPLETE W STAT 05/14/2014 3:03 PM R esults for this TRANSVAGINAL AND WHITE LEAD FILTERER procedure a re in DOPPLER LIMITED the results section. ROUTINE UA WITH STAT 05/14/2014 2:39 PM Chronic abdominal R esults for this MICROSCOPIC WHITE LEAD FILTERER pain procedure are i n the results section. LACTIC ACID STAT 05/14/2014 2:00 PM Results f or this WHITE LEAD FILTERER procedure are i n the results section. CBC WITH PLATELETS & STAT 05/14/2014 1:00 PM R esults for this DIFFERENTIAL WHITE LEAD FILTERER procedure are i n the results section. LIPASE STAT 05/14/2014 1:00 PM Results f or this WHITE LEAD FILTERER procedure are i n the results section. COMPREHENSIVE STAT 05/14/2014 1:00 PM Results for this METABOLIC PANEL WHITE LEAD FILTERER procedure ar e in the results section. documented in this encounter Results (ABNORMAL) Stool: occult blood (05/14/2014 3:24 PM WHITE LEAD FILTERER) [facility] Method Time Signature Occult Blood Positive (A) NEG [facility] Specimen Anatomical Collection Method Collection Time Receive d Time (Source) Location / / Volume Laterality Stool specimen STOOL SPECIMEN / 05/14/2014 3:24 PM 3:40 (specimen) Unknown WHITE LEAD FILTERER PM WHITE LEAD FILTERER Carlos Lee MD LAB - STOOLS ORDERABLES Performing Organization Address City/State/ZIP Code Phon e Number [place] [address] [address] [place] [address] [address] Neisseria gonorrhoea PCR (05/14/2014 3:24 PM WHITE LEAD FILTERER) Component Value Ref Test Analysis Performed At [facility] Method Time Signature Specimen Vagina [facility] N Gonorrhea Negative NEG [facility] PCR Negative for N. gonorrhoeae rRNA by transcripti on mediated amplification. [place] [facility] A negative result by transc ription mediated amplification does not preclude the [facility] presence of N. gonorrhoeae infection because re sults are dependent on proper BANK and adequate collection, absence of inhibitors, and suffici ent rRNA to be detected. Specimen Anatomical Collection Method Collection Time Receive d Time (Source) Location / / Volume Laterality Vaginal swab 05/14/2014 3:24 PM 5 3:39 (specimen) WHITE LEAD FILTERER PM WHITE LEAD FILTERER Carlos Lee MD LAB - MICRO GENERAL ORDERABL ES Performing Organization Address City/[facility]/ZIP Code Phon e Number [address] [phone] [facility] [address] [place], [place] [address] 7 Chlamydia trachomatis PCR (05/14/2014 3:24 PM WHITE LEAD FILTERER) Component Value Ref Test Analysis Performed At [facility] StartMe Range Method Time Signature Specimen Vag[facility] Chlamydia Negative NEG [facility] Trachomatis Negative for C. trachomatis rRNA by outreach associate mediated amplification. [place] [facility] PCR A negative result by transc ription mediated amplification does not preclude the [facility] presence of C. trachomatis infection because re sults are dependent on proper BANK and adequate collection, absence of inhibitors, and suffici ent rRNA to be detected. Specimen Anatomical Collection Method Collection Time Receive d Time (Source) Location / / Volume Laterality Vaginal swab 05/14/2014 3:24 PM 5 3:39 (specimen) WHITE LEAD FILTERER PM WHITE LEAD FILTERER Carlos Lee MD LAB - MICRO GENERAL ORDERABL ES Performing Organization Address [facility] Phon e Number [address] [address] [facility] [address] [place], [place] [address] 7 Wet prep (05/14/2014 3:24 PM WHITE LEAD FILTERER) [facility] Method Time Signature Specimen [facility] Wet Prep Few PMNs seen [place] No Trichomonas seen [facility] No yeast seen HOSPITAL No clue cells seen Micro Report FINAL [place] Status 05/14/2014 [facility] Specimen Anatomical Collection Method Collection Time Receive d Time (Source) Location / / Volume Laterality Vaginal swab 05/14/2014 3:24 PM 5 3:39 (specimen) WHITE LEAD FILTERER PM WHITE LEAD FILTERER Carlos Lee MD LAB - MICRO GENERAL ORDERABL ES Performing Organization Address City/[facility]/ZIP Code Phon e Number [facility] [address] [id number] [facility] [address] [address] US Pelvic Complete w Transvaginal & Abd/Pel Duplex Limited (05/14/2014 3:03 PM WHITE LEAD FILTERER) Anatomical Region Laterality Modality Abdomen/Pelvis Ultrasound Specimen (Source) Anatomical Location Collection Method / Collectio n Time Received Time / Laterality Volume Impressions 05/14/2014 3:48 PM WHITE LEAD FILTERER IMPRESSION: No torsion demonstrated. Small cyst in the right ovary. ZINA MURRAY MD Narrative 05/14/2014 3:48 PM WHITE LEAD FILTERER ULTRASOUND PELVIS ??WITH TRANSVAGINAL IMAGING ??05/14/2014 3:03 [...] (ABNORMAL) UA with Microscopic (05/14/2014 2:39 PM WHITE LEAD FILTERER) [facility] Method Time Signature Color Urine Yellow [facility] Appearance Urine Clear [facility] Glucose Urine Negative NEG mg/dL [facility] Bilirubin Urine Negative NEG [facility] Ketones Urine Negative NEG mg/dL [facility] Specific [place] 1.016 1.003 - [place] Urine 1.035 [facility] Blood Urine Negative NEG [facility] pH Urine 6.0 5.0 - 7.0 [facility] Protein Albumin Negative NEG mg/dL [place] Urine [facility] Urobilinogen Normal 0.0 - 2.0 [place] mg/dL mg/dL [facility] Nitrite Urine Negative NEG [facility] Leukocyte Negative NEG [place] Esterase Urine [facility] Source Midstream [facility] WBC Urine <1 0 - 2 [facility] RBC Urine <1 0 - 2 [facility] Mucous Urine Present (A) NEG /LPF [facility] Specimen Anatomical Location Collection Method Collection Time Received Time (Source) / Laterality / Volume Urine specimen URINE SPECIMEN 05/14/2014 2:39 05/14/19 15 3:07 (specimen) COLLECTION, PM WHITE LEAD FILTERER PM WHITE LEAD FILTERER CATHETERIZED / Unknown Carlos Lee MD LAB - URINE ORDERABLES Performing Organization Address City/[facility]/[address] [address] [place] [address] [address] [place], [place] [address] 7 Lactic acid (05/14/2014 2:00 PM WHITE LEAD FILTERER) athologist Signature Lactic Acid 1.0 0.4 - 2.0 [place] mmol/[facility] Specimen Anatomical Collection Method Collection Time Receive d Time (Source) Location / / Volume Laterality Blood specimen 05/14/2014 2:00 PM 015 2:25 (specimen) WHITE LEAD FILTERER PM WHITE LEAD FILTERER Carlos Lee MD LAB - BLOOD ORDERABLES Performing Organization Address City/[facility] [address] [place], [place] [address] [facility] [address] [place], [place] [address] 7 Lipase (05/14/2014 1:00 PM WHITE LEAD FILTERER) athologist Signature Lipase 154 73 - 393 [facility] U/[facility] Comment: Effective 11/10/2013, the reference range for this assay has changed to reflect new instrumentation/methodology. Specimen Anatomical Collection Method Collection Time Receive d Time (Source) Location / / Volume Laterality Blood specimen 05/14/2014 1:00 PM 015 2:24 (specimen) WHITE LEAD FILTERER PM WHITE LEAD FILTERER Carlos Lee MD LAB - BLOOD ORDERABLES Performing Organization Address City/State/ZIP Code Phon e Number M [facility] [address] [place], [place] [address] [facility] [address] [place], [place] [address] 7 (ABNORMAL) Comprehensive metabolic panel (05/14/2014 1:00 PM WHITE LEAD FILTERER) athologist Signature Sodium 136 133 - 144 [place] mmol/L [facility] Potassium 3.9 3.4 - 5.3 [place] mmol/L [facility] Chloride 106 94 - 109 [place] [facility] Carbon Dioxide 23 20 - 32 [place] mmol/L [facility] Anion Gap 7 3 - 14 [place] mmol/L [facility] Glucose 85 70 - 99 [place] mg/dL [facility] Comment: Effective 11/10/2013, the reference range for this assay has changed to reflect new instrumentation/methodology. Urea Nitrogen 14 7 - 30 mg/dL [facility] Comment: Effective 11/10/2013, the reference range for this assay has changed to reflect new instrumentation/methodology. Creatinine 0.75 0.52 - 1.04 mg/dL [facility] GFR Estimate 90 >60 mL/min/1.7m2 [facility] Comment: Non GFR Calc GFR Estimate If Black >90 >60 mL/min/1.7m2 F [facility] GFR Calc HOSP ITAL Calcium 8.4 (L) 8.5 - 10.1 mg/dL [facility] Comment: Effective 11/10/2013, the reference range for this assay has changed to reflect new instrumentation/methodology. Bilirubin Total 0.3 0.2 - 1.3 mg/dL [facility] Albumin 3.5 3.4 - 5.0 g/dL [facility] Protein Total 7.4 6.8 - 8.8 g/dL [facility] Alkaline Phosphatase 68 40 - 150 U/L [facility] ALT 22 0 - 50 U/L [facility] HOS PITAL AST 16 0 - 45 U/L [facility] HOS PITAL Specimen Anatomical Collection Method Collection Time Receive d Time (Source) Location / / Volume Laterality Blood specimen 05/14/2014 1:00 PM 015 2:24 (specimen) WHITE LEAD FILTERER PM WHITE LEAD FILTERER Carlos Lee MD LAB - BLOOD ORDERABLES Performing Organization Address City/State/ZIP Code Phon e Number M [facility] [address] [place], [place] [address] [facility] [address] [place], [place] [address] 7 CBC with platelets differential (05/14/2014 1:00 PM WHITE LEAD FILTERER) [facility] Method Time Signature WBC 8.3 4.0 - [place] 11.0 [facility] 10e9/[facility] RBC Count 4.59 3.8 - 5.2 [place] 10e12/L [facility] Hemoglobin 13.4 11.7 - [place] 15.7 g/dL [facility] Hematocrit 40.2 35.0 - [place] 47.0 % [facility] MCV 88 78 - 100 [facility] MCH 29.2 26.5 - [facility] 33.0 pg [facility] MCHC 33.3 31.5 - [place] 36.5 g/dL [facility] RDW 13.2 10.0 - [place] 15.0 % [facility] Platelet Count 248 150 - [address] Diff Method Automated [facility] % Neutrophils 74.9 % [facility] % Lymphocytes 19.9 % [facility] % Monocytes 3.6 % [facility] % Eosinophils 1.1 % [facility] % Basophils 0.1 % [facility] % Immature 0.4 % [place] Granulocytes [facility] Absolute 6.2 1.6 - 8.3 [place] Neutrophil 10e9/L [facility] Absolute 1.6 0.8 - 5.3 [place] Lymphocytes 10e9/L [facility] Absolute 0.3 0.0 - 1.3 [place] Monocytes 10e9/L [facility] Absolute 0.1 0.0 - 0.7 [place] Eosinophils 10e9/[facility] Absolute 0.0 0.0 - 0.2 [place] Basophils 10e9/L [facility] Abs Immature 0.0 0 - 0.4 [place] Granulocytes 10e9/L [facility] Specimen Anatomical Collection Method Collection Time Receive d Time (Source) Location / / Volume Laterality Blood specimen 05/14/2014 1:00 PM 015 2:24 (specimen) WHITE LEAD FILTERER PM WHITE LEAD FILTERER Carlos Lee MD LAB - BLOOD ORDERABLES Performing Organization Address City/State/ZIP Code Phon e Number [place] [address] [address] [facility] [address] [address] documented in this encounter Visit Diagnoses Diagnosis Chronic abdominal pain Abdominal pain, unspecified site documented in this encounter Administered Medications Inactive Administered Medications - up to 3 most recent administrations Medication Order MAR Action Action Date Dose Rate Site diphenhydrAMINE (BENADRYL) Given 05/14/2014 2:06 PM WHITE LEAD FILTERER 50 mg injection 50 mg 50 mg, Intravenous, ONCE, On 05/14/14 at 1352, For 1 dose ketorolac (TORADOL) injection 30 mg Given 05/14/2014 2:06 PM WHITE LEAD FILTERER 30 mg 30 mg, Intravenous, ONCE, On [...] Recently Administered Medications Times are shown in WHITE LEAD FILTERER. Scheduled Medication Order 05/12/2014 05/13/2014 05/14/2014 diphenhydrAMINE [...] extravasation. documented in this encounter Care Teams Associate Professor Of Geology Relationship Specialty Start Date End Date Jamin Silva MD PCP - General Family Medicine - Sports 06/01/13 Medicine documented as of this encounter
--- OUTSIDE RECORDS SUMMARY | 2022-01-31 19:40 | XMS_ITS | Encounter Summary ---
:1980 Author Organization [facility] Address [address] [place] [address] Care Team Providers Name Role Phone Jamin Silva MD Primary Care Provider Reason for Visit Reason Comments Flank Pain Encounter Details Date Type Department Care Team Description 02/08/[address] [facility] Mili Tate A bdominal pain, left [facility] t lower quadrant [address] [facility] (Primary Dx) [facility] [id number] [facility] [phone] [place], [place] [address] (Wo rk) Social History [...] directed by your doctor today. Before using ruaw-nyd-sbgquxi medications, ask your doctor and make sure [...] contain Tylenol?? (acetaminophen), including Vicodin??, Tylenol #3??, [place]??, Lortab??, and Percocet??. You should not take [...] severity, worse with movement. The patient states thatshe went to her clinic 4 days ago [...] Patient presents to the ED with female cell tuber hand. Review of Systems Constitutional: Negative for fever [...] follow-up was reviewed. The patient was prescribed [place] and Zofran. Impression & Plan Medical Decision [...] I discharged the patient home with oral [place] for pain as well as Zofran as [...] and the provider's statements to me. 02/08/2014 [facility] EMERGENCY DEPARTMENT Mili Tate MD 02/08/14 1535 [...] UA with Microscopic (02/08/2014 11:15 AM CDT) [facility] gist Method Time Signature Color Urine Light Yellow [facility] Appearance Urine Clear [facility] Glucose Urine Negative NEG mg/dL [facility] Bilirubin Urine Negative NEG [facility] Ketones Urine Negative NEG mg/dL [facility] Specific [place] 1.010 1.003 - [place] Urine 1.035 [facility] Blood Urine Negative NEG [facility] pH Urine 6.5 5.0 - 7.0 [place] pH [facility] Protein Albumin Negative NEG mg/dL [facility] LAB Urobilinogen Normal 0.0 - 2.0 [place] mg/dL mg/dL [facility] Nitrite Urine Negative NEG [facility] Leukocyte Negative NEG [place] Esterase Urine [facility] Source Midstream [facility] LAB WBC Urine <1 0 - 2 [place] /HPF [facility] RBC Urine 0 0 - 2 [place] /HPF [facility] Bacteria Urine Few (A) NEG /HPF [facility] Squamous <1 0 - 1 [place] Epithelial /HPF /HPF [facility] LAB Specimen Anatomical Collection Method Collection Time Receive d Time (Source) Location / / Volume Laterality Urine specimen URINE SPECIMEN 02/08/2014 11:15 014 (specimen) OBTAINED BY CLEAN AM CDT 11:20 AM C DT CATCH PROCEDURE / Unknown Mili Tate MD LAB - URINE ORDERABLES Performing Organization Address City/[facility]/ZIP Code Phon e Number M [facility] [address] [place], [place] [address] [facility] LAB HCG QUALitative (02/08/2014 10:44 AM CDT) Patholo gist Method Time Signature HCG Qualitative Negative NEG [facility] LAB Specimen Anatomical Collection Method Collection Time Receive d Time (Source) Location / / Volume Laterality Blood specimen 02/08/2014 10:44 4 (specimen) AM CDT 10:53 AM CDT Mili Tate MD LAB - BLOOD ORDERABLES Performing Organization Address [facility] Phon e Number M [facility] [address] [place], [place] [address] [facility] Basic metabolic panel (02/08/2014 10:44 AM CDT) P athologist Signature Sodium 138 133 - 144 [place] mmol/L [facility] Potassium 4.1 3.4 - 5.3 [place] mmol/L [facility] Chloride 108 94 - 109 [place] mmol/L [facility] Carbon Dioxide 26 20 - 32 [place] mmol/L [facility] Anion Gap 4 3 - 14 [place] mmol/L [facility] Glucose 94 70 - 99 [place] mg/dL [facility] Comment: Effective 11/10/2013, the reference range for this assay has changed to reflect new instrumentation/methodology. Urea Nitrogen 13 7 - 30 mg/dL [facility] Comment: Effective 11/10/2013, the reference range for this assay has changed to reflect new instrumentation/methodology. Creatinine 0.84 0.52 - 1.04 mg/dL [facility] GFR Estimate 78 >60 mL/min/1.7m2 [facility] Comment: Non GFR Calc GFR Estimate If Black >90 >60 mL/min/1.7m2 F [facility] GFR Calc HOSP ITAL LAB Calcium 8.8 8.5 - 10.1 mg/dL [facility] Comment: Effective 11/10/2013, the reference range for this assay has changed to reflect new instrumentation/methodology. Specimen Anatomical Collection Method Collection Time Receive d Time (Source) Location / / Volume Laterality Blood specimen 02/08/2014 10:44 4 (specimen) AM CDT 10:53 AM CDT Mili Tate MD LAB - BLOOD ORDERABLES Performing Organization Address City/State/ZIP Code Phon e Number M [facility] [address] [address] [facility] CBC with platelets differential (02/08/2014 10:44 AM CDT) [facility] gist Method Time Signature WBC 5.7 4.0 - [place] 11.0 [facility] 10e9/[facility] LAB RBC Count 4.42 3.8 - 5.2 [place] 10e12/L [facility] Hemoglobin 13.0 11.7 - [place] 15.7 g/dL [facility] Hematocrit 38.9 35.0 - [place] 47.0 % [facility] MCV 88 78 - 100 [place] fl [facility] MCH 29.4 26.5 - [place] 33.0 pg [facility] MCHC 33.4 31.5 - [place] 36.5 g/dL [facility] RDW 12.9 10.0 - [place] 15.0 % [facility] Platelet Count 214 150 - 450 [place] 10e9/L [facility] Diff Method Automated [facility] LAB % Neutrophils 62.8 % [facility] % Lymphocytes 25.0 % [facility] % Monocytes 9.9 % [facility] % Eosinophils 1.9 % [facility] % Basophils 0.2 % [facility] % Immature 0.2 % [place] Granulocytes [facility] Absolute 3.6 1.6 - 8.3 [place] Neutrophil 10e9/L [facility] Absolute 1.4 0.8 - 5.3 [place] Lymphocytes 10e9/L [facility] Absolute 0.6 0.0 - 1.3 [place] Monocytes [address] [place] [address] LAB Absolute 0.1 0.0 - 0.7 [place] Eosinophils [address] [place] [address] LAB Absolute 0.0 0.0 - 0.2 [place] Basophils [address] [place] [address] LAB Abs Immature 0.0 0 - 0.[address] LAB Specimen Anatomical Collection Method Collection Time Receive d Time (Source) Location / / Volume Laterality Blood specimen 02/08/2014 10:44 4 (specimen) AM CDT 10:53 AM CDT Mili Tate MD LAB - BLOOD ORDERABLES Performing Organization Address City/State/ZIP Code Phon e Number [place] [address] [address] [place] [address] [facility] documented in this encounter [...] mg (CANCELED) 1054 (Given - Provider: Kimberly Le RN) 4 mg, Intravenous, EVERY 30 MIN PRN, amador sea, vomiting, for 2 Minutes, Starting Fri02/08/14 at 1046, For 3 doses, May repeat in 30 minutes as needed, up to 3 doses. documented in this encounter Care Teams Detasseling Crew Supervisor Relationship Specialty Start Date End Date Jamin Silva MD PCP - General Family Medicine - Sports 06/01/13 Medicine documented as of this encounter
--- OUTSIDE RECORDS SUMMARY | 2022-01-31 19:40 | XMS_ITS | Encounter Summary ---
:1980 Author Organization [facility] Address [address] [place] [id number] Care Team Providers Name Role Phone Jamin Silva MD Primary Care Provider Reason for Visit Reason Comments Abdominal Pain LLQ pain since january Encounter Details Date Type Department Care Team Description 02/26/2014 Emergency [facility] Robbie Nelson Abdom inal pain, left [place] [facility] ralph Johnson MD lower quadrant [address] [facility] (Primary Dx) [facility] [phone] [address] [phone] [address] [place], [place] [id number] (Wo rk) Social History Tobacco Use Types Packs/Day Years Used Date Smoking Tobacco: Every Day Cigarettes 0.3 Alcohol Use Standard Drinks/Week Comments No 0 (1 standard drink = 0.6 oz pure alcoho l) Sex Assigned at Date Recorded Not on file documented as of this encounter Last Filed Vital Signs Vital Sign Reading Time Taken Comments Blood Pressure 102/71 02/26/2014 4:00 PM ANALOG IC DESIGN ARCHITECT Pulse 77 02/26/2014 2:41 PM ANALOG IC DESIGN ARCHITECT Temperature 36.5 ??C (97.7 ??F) 02/26/2014 2:41 PM ANALOG IC DESIGN ARCHITECT Respiratory Rate 16 02/26/2014 2:41 PM ANALOG IC DESIGN ARCHITECT Oxygen Saturation 96% 02/26/2014 4:05 PM ANALOG IC DESIGN ARCHITECT Inhaled Oxygen Concentration - - Weight 76.7 kg (169 lb) 02/26/2014 2:41 PM ANALOG IC DESIGN ARCHITECT Height - - Body Mass Index - - documented in this encounter Discharge Instructions Discharge InstructionsRobbie Nelson MD - 02/26/2014 4:38 PM ANALOG IC DESIGN ARCHITECT Discharge Instructions Abdominal Pain Abdominal pain can [...] directed by your doctor today. Before using inyx-xwn-gnsvnid medications, ask your doctor and make sure [...] contain Tylenol?? (acetaminophen), including Vicodin??, Tylenol #3??, [place]??, Lortab??, and Percocet??. You should not take [...] if there is anything that worries you. OG IC DESIGN ARCHITECT AttachmentsThe following attachments cannot be sent through Care Everywhere. PELVIC PAIN, UNKNOWN CAUSE (BELARUSIAN)documented in this encounter Medications at Time of [...] and after seeing her primary provider at [facility] in [place]. She reports, however, that her aching left [...] baso 0.3%, imm gran 0.1%), hgb 13.4, [id number] CMP: creat 0.82, o/w wnl Lipase: 114 [...] be discharged home to follow up with MAITRE D perdischarge instructions. Indications for return to the [...] February 12, and February 18. Please see [facility] for details of that. She has alr [...] I gave her a referral to our montessori lead teacher gynecology provider. She will follow up. Diagnosis: ICD-9-CM 1. Abdominal pain, left lower quadrant 789.04 I, Robbie Chowdhury, am serving as a scribe at 2:52 PM on 02/26/2014 to document services personally performed by Robbie Nelson MD, based on my observations and the provider's statements to me. Robbie Nelson MD 02/28/14 1030 OG IC DESIGN ARCHITECT Abril Stack RN - 02/26/2014 2:40 PM CST Nausea. States has been seen for same in clinic and ED OG IC DESIGN ARCHITECT documented in this encounter Plan of Treatment Not on filedocumented as of this encounter Procedures Procedure Name Priority Date/Time Associated Comments Diagnosis US PELVIS COMPLETE W STAT 02/26/2014 3:53 PM R esults for this TRANSVAGINAL AND ANALOG IC DESIGN ARCHITECT procedure a re in DOPPLER LIMITED the results section. CBC WITH PLATELETS & STAT 02/26/2014 3:24 PM R esults for this DIFFERENTIAL ANALOG IC DESIGN ARCHITECT procedure are i n the results section. LIPASE STAT 02/26/2014 3:24 PM Results f or this ANALOG IC DESIGN ARCHITECT procedure are i n the results section. LACTIC ACID STAT 02/26/2014 3:24 PM Results f or this ANALOG IC DESIGN ARCHITECT procedure are i n the results section. COMPREHENSIVE STAT 02/26/2014 3:24 PM Results for this METABOLIC PANEL ANALOG IC DESIGN ARCHITECT procedure ar e in the results section. HCG QUALITATIVE URINE STAT 02/26/2014 3:05 PM Results for this ANALOG IC DESIGN ARCHITECT procedure are i n the results section. ROUTINE UA WITH STAT 02/26/2014 3:05 PM Result s for this MICROSCOPIC ANALOG IC DESIGN ARCHITECT procedure are i n the results section. documented in this encounter Results US Pelvic Complete w Transvaginal & Abd/Pel Duplex Limited (02/26/2014 3:53 PM ANALOG IC DESIGN ARCHITECT) Anatomical Region Laterality Modality Abdomen/Pelvis Ultrasound Specimen (Source) Anatomical Location Collection Method / Collectio n Time Received Time / Laterality Volume Impressions 02/26/2014 3:56 PM ANALOG IC DESIGN ARCHITECT IMPRESSION: 1. No evidence for ovarian torsion. Norm al blood flow is seen in both ovaries. 2. 2 cm cyst or follicle in the left ova ry. 3. No free fluid or adnexal mass. BETSY MILLS MD Narrative 02/26/2014 3:56 PM ANALOG IC DESIGN ARCHITECT US PELVIS COMPLETE W TRANSVAGINAL AND DOPPLER [...] mass. BETSY MILLS MD Robbie Nelson MD [facility] US ORDERABLES Lipase (02/26/2014 3:24 PM ANALOG IC DESIGN ARCHITECT) P athologist Signature Lipase 114 73 - 393 [facility] U/L [facility] Comment: Effective 11/10/2013, the reference range for this assay has changed to reflect new instrumentation/methodology. Specimen Anatomical Collection Method Collection Time Receive d Time (Source) Location / / Volume Laterality Blood specimen 02/26/2014 3:24 PM 014 3:40 (specimen) ANALOG IC DESIGN ARCHITECT PM ANALOG IC DESIGN ARCHITECT Robbie Nelson MD LAB - BLOOD ORDERABLES Performing Organization Address [facility]/ZIP [phone] [place] [address] LAB Lactic acid (02/26/2014 3:24 PM ANALOG IC DESIGN ARCHITECT) athologist Signature Lactic Acid 0.6 0.4 - 2.0 [place] mmol/L [facility] LAB Specimen Anatomical Collection Method Collection Time Receive d Time (Source) Location / / Volume Laterality Blood specimen 02/26/2014 3:24 PM 014 3:40 (specimen) ANALOG IC DESIGN ARCHITECT PM ANALOG IC DESIGN ARCHITECT Robbie Nelson MD LAB - BLOOD ORDERABLES Performing Organization Address City/[facility]/[address] [facility] Comprehensive metabolic panel (02/26/2014 3:24 PM ANALOG IC DESIGN ARCHITECT) athologist Signature Sodium 136 133 - 144 [place] mmol/L [facility] Potassium 3.9 3.4 - 5.3 [place] mmol/L [facility] Chloride 106 94 - 109 [place] mmol/L [facility] Carbon Dioxide 26 20 - 32 [place] mmol/L [facility] Anion Gap 4 3 - 14 [place] mmol/L [facility] Glucose 89 70 - 99 [place] mg/dL [facility] Comment: Effective 11/10/2013, the reference range for this assay has changed to reflect new instrumentation/methodology. Urea Nitrogen 13 7 - 30 mg/dL [facility] Comment: Effective 11/10/2013, the reference range for this assay has changed to reflect new instrumentation/methodology. Creatinine 0.82 0.52 - 1.04 mg/dL [facility] GFR Estimate 81 >60 mL/min/1.7m2 [facility] LAB Comment: Non GFR Calc GFR Estimate If Black >90 >60 mL/min/1.7m2 F [facility] GFR Calc HOSP ITAL LAB Calcium 8.6 8.5 - 10.1 mg/dL [facility] Comment: Effective 11/10/2013, the reference range for this assay has changed to reflect new instrumentation/methodology. Bilirubin Total 0.2 0.2 - 1.3 mg/dL [facility] Albumin 3.8 3.4 - 5.0 g/dL [facility] Protein Total 7.1 6.8 - 8.8 g/dL [facility] Alkaline Phosphatase 74 40 - 150 U/L [facility] ALT 27 0 - 50 U/L [facility] AST 17 0 - 45 U/L [facility] Specimen Anatomical Collection Method Collection Time Receive d Time (Source) Location / / Volume Laterality Blood specimen 02/26/2014 3:24 PM 014 3:40 (specimen) ANALOG IC DESIGN ARCHITECT PM ANALOG IC DESIGN ARCHITECT Robbie Nelson MD LAB - BLOOD ORDERABLES Performing Organization Address City/State/ZIP Code Phon e Number M [facility] [address] [address] [facility] CBC with platelets differential (02/26/2014 3:24 PM ANALOG IC DESIGN ARCHITECT) [facility] gist Method Time Signature WBC 7.3 4.0 - [place] 11.0 [facility] 10e9/L [facility] RBC Count 4.57 3.8 - 5.2 [place] 10e12/L [facility] Hemoglobin 13.4 11.7 - [place] 15.7 g/dL [facility] Hematocrit 40.1 35.0 - [place] 47.0 % [facility] MCV 88 78 - 100 [place] fl [facility] MCH 29.3 26.5 - [facility] 33.0 pg [facility] MCHC 33.4 31.5 - [place] 36.5 g/dL [facility] RDW 13.1 10.0 - [place] 15.0 % [facility] Platelet Count 228 150 - 450 [place] 10e9/L [facility] Diff Method Automated [facility] % Neutrophils 72.1 % [facility] % Lymphocytes 20.4 % [facility] % Monocytes 5.9 % [facility] % Eosinophils 1.2 % [facility] % Basophils 0.3 % [facility] % Immature 0.1 % [place] Granulocytes [facility] Absolute 5.3 1.6 - 8.3 [place] Neutrophil 10e9/L [facility] Absolute 1.5 0.8 - 5.3 [place] Lymphocytes 10e9/L [facility] Absolute 0.4 0.0 - 1.3 [place] Monocytes 10e9/L [facility] Absolute 0.1 0.0 - 0.7 [place] Eosinophils 10e9/L [facility] Absolute 0.0 0.0 - 0.2 [place] Basophils [address] [place] [address] LAB Abs Immature 0.0 0 - 0.4 [place] Granulocytes [address] [place] [address] LAB Specimen Anatomical Collection Method Collection Time Receive d Time (Source) Location / / Volume Laterality Blood specimen 02/26/2014 3:24 PM 014 3:40 (specimen) ANALOG IC DESIGN ARCHITECT PM ANALOG IC DESIGN ARCHITECT Robbie Nelson MD LAB - BLOOD ORDERABLES Performing Organization Address City/State/ZIP [facility] Phon e Number M [facility] [address] [place], [place] [address] [facility] HCG qualitative urine (02/26/2014 3:05 PM ANALOG IC DESIGN ARCHITECT) P athologist Signature HCG Qual Urine Negative NEG [facility] Specimen Anatomical Collection Method Collection Time Receive d Time (Source) Location / / Volume Laterality Urine specimen URINE SPECIMEN 02/26/2014 3:05 PM 02/26 3:10 (specimen) OBTAINED BY CLEAN ANALOG IC DESIGN ARCHITECT PM ANALOG IC DESIGN ARCHITECT CATCH PROCEDURE / Unknown Robbie Nelson MD LAB - URINE ORDERABLES Performing Organization Address City/State/[facility] Phon e Number M [facility] [address] [place], [place] [address] [facility] (ABNORMAL) UA with Microscopic (02/26/2014 3:05 PM ANALOG IC DESIGN ARCHITECT) Patholo gist Method Time Signature Color Urine Light Yellow [facility] Appearance Urine Clear [facility] Glucose Urine Negative NEG mg/dL [facility] Bilirubin Urine Negative NEG [facility] Ketones Urine Negative NEG mg/dL [facility] Specific [place] 1.007 1.003 - [place] Urine 1.035 [facility] Blood Urine Negative NEG [facility] pH Urine 5.5 5.0 - 7.0 [place] pH [facility] Protein Albumin Negative NEG mg/dL [facility] LAB Urobilinogen Normal 0.0 - 2.0 [place] mg/dL mg/dL [facility] Nitrite Urine Negative NEG [facility] Leukocyte Negative NEG [place] Esterase Urine [facility] Source Midstream [place] Urine [facility] WBC Urine <1 0 - 2 [facility] RBC Urine <1 0 - 2 [facility] Bacteria Urine Few (A) NEG /HPF [facility] Squamous 1 0 - 1 [place] Epithelial /HPF /HPF [facility] Mucous Urine Present (A) NEG /LPF [facility] Specimen Anatomical Collection Method Collection Time Receive d Time (Source) Location / / Volume Laterality Urine specimen URINE SPECIMEN 02/26/2014 3:05 PM 02/26 3:10 (specimen) OBTAINED BY CLEAN ANALOG IC DESIGN ARCHITECT PM ANALOG IC DESIGN ARCHITECT CATCH PROCEDURE / Unknown Robbie Nelson MD LAB - URINE ORDERABLES Performing Organization Address City/State/ZIP Code Phon e Number M [place] [address] [address] [address] [facility] documented in this encounter Visit Diagnoses Diagnosis Abdominal pain, left lower quadrant - Pr imary documented in this encounter Administered Medications Inactive Administered Medications - up to 3 most recent administrations Medication Order MAR Action Action Date Dose Rate Site ketorolac (TORADOL) injection 30 mg Given 02/26/2014 3:18 PM ANALOG IC DESIGN ARCHITECT 30 mg 30 mg, Intravenous, ONCE, On 02/26/14 at 1507, For 1 dose ondansetron (ZOFRAN) injection 4 mg Given 02/26/2014 3:18 PM ANALOG IC DESIGN ARCHITECT 4 mg 4 mg, Intravenous, EVERY 30 MIN PRN, nausea, vomiting, Administer over 2-5 Minutes, Starting on 02/26/14 at 1506, For 3 doses, May repeat in 30 minutes as needed, up to 3 doses. oxyCODONE-acetaminophen (PERCOCET) 5-325 Given 02/26/2014 4: 55 PM ANALOG IC DESIGN ARCHITECT 2 tablets MG per tablet 2 tablet 2 tablet, Oral, ONCE, On 02/26/14 at 1638, For 1 dose, Maximum acetaminophen dose from all sources= 75 mg/kg/day not to exceed 4 grams sodium chloride 0.9 % BOLUS New Bag 02/26/2014 3:18 PM ANALOG IC DESIGN ARCHITECT 1,000 m Ls 1000 mL/hr 1,000 mL Intravenous, 1,000 mL, ONCE, at 1,000 mL/hr, Administer over 1 Hours, On 02/26/14 at 1507, For 1 dose documented in this encounter Active and Recently Administered Medications Times are shown in ANALOG IC DESIGN ARCHITECT. Scheduled Medication Order 02/24/2014 02/25/2014 02/26/2014 ketorolac [...] mg (CANCELED) 1518 (Given - Provider: Brittney Feldman, ANGE) 4 mg, Intravenous, EVERY 30 MIN PRN, amador sea, vomiting, for 2 Minutes, Starting 02/26/14 at 1506, For 3 doses, May repeat in 30 minutes as needed, up to 3 doses. documented in this encounter Care Teams Bleach Tester Relationship Specialty Start Date End Date Jamin Silva MD PCP - General Family Medicine - Sports 06/01/13 Medicine documented as of this encounter
--- OUTSIDE RECORDS SUMMARY | 2022-01-31 19:40 | XMS_ITS | Encounter Summary ---
:1980 Author Organization [facility] Address [address] [place] [id number] Care Team Providers Name Role Phone Jamin Silva MD Primary Care Provider Reason for Visit Reason Comments Pharyngitis Encounter Details Date Type Department Care Team Description [facility] [place] [facility] Emergency [facility] t (Primary Dx) [address] [facility] [id number] [address] [facility] [phone] [address] [place], [place] [address] (Wo rk) Social History Tobacco Use Types Packs/Day Years Used Date Smoking Tobacco: Never Assessed Sex Assigned at Date Recorded Not on file documented as of this encounter Last Filed Vital Signs Vital Sign Reading Time Taken Comments Blood Pressure 121/81 06/01/2013 9:22 PM CARBON DIOXIDE OPERATOR Pulse 76 06/01/2013 8:19 PM CARBON DIOXIDE OPERATOR Temperature 36.7 ??C (98.1 ??F) 06/01/2013 8:19 PM CARBON DIOXIDE OPERATOR Respiratory Rate 16 06/01/2013 9:22 PM CARBON DIOXIDE OPERATOR Oxygen Saturation 99% 06/01/2013 9:22 PM CARBON DIOXIDE OPERATOR Inhaled Oxygen Concentration - - Weight 79.4 kg (175 lb) 06/01/2013 8:19 PM CARBON DIOXIDE OPERATOR Height - - Body Mass Index - - documented in this encounter Discharge Instructions Discharge InstructionsShon Patel MD - 06/01/2013 9:03 PM CARBON DIOXIDE OPERATOR Home Back SP RU CH *PHARYNGITIS (Sore [...] ?? Muffled voice ?? New rash ?? [phone] Alfredo [facility], [address] [place] [address]. All rights reserved. This information is not intended as a substitute for professional medical care. Always follow your healthcare professional's instructions. ON DIOXIDE OPERATOR documented in this encounter Medications at [...] record. The patient was placed on a compliance monitor and continuous pulse oximeter. The patient was [...] provider's statements to me. Christine Agudelo 06/01/2013 [facility] EMERGENCY DEPARTMENT Shon Patel MD 06/02/13 0032 ON DIOXIDE OPERATOR Lindsay Gregorio RN - 06/01/2013 8:31 PM CST MD at bedside. ON DIOXIDE OPERATOR Lindsay Gregorio, ANGE - 06/01/2013 8:18 PM CST severe sore throat for 3 days, was sick a couple weeks ago with vomiting and fever 102.5, no othercomplaints at this time ON DIOXIDE OPERATOR documented in this encounter Plan of Treatment Not on filedocumented as of this encounter Procedures Procedure Name Priority Date/Time Associated Diagnosis Comme nts RAPID STREP SCREEN STAT 06/01/2013 8:17 PM Res ults for this THROAT SWAB CARBON DIOXIDE OPERATOR procedure are i n the results section. BETA HEMOLYTIC Routine 06/01/2013 8:17 PM Results for this STREP GROUP A CARBON DIOXIDE OPERATOR procedure are in CULTURE the results section. documented in this encounter Results Beta strep group A culture (06/01/2013 8:17 PM CARBON DIOXIDE OPERATOR) Component Value Ref Test Analysis Performed At [facility] Range Method Time Signature Specimen Throat [facility] Culture Micro No Beta [facility] Streptococcus MICROBIOLOGY isolated Micro Report FINAL 06/03/2013 [facility] Status MICROBIOLOGY Specimen Anatomical Collection Method Collection Time Receive d Time (Source) Location / / Volume Laterality 06/01/2013 8:17 PM 4 8:27 CARBON DIOXIDE OPERATOR PM CARBON DIOXIDE OPERATOR Shon Patel MD LAB - MICRO GENERAL ORDERABL ES Performing Organization Address City/State/ZIP Code Phon e Number [facility] [address] [place] [address] [facility] MICROBIOLOGY Rapid strep screen (06/01/2013 8:17 PM CARBON DIOXIDE OPERATOR) Component Value Ref Test Analysis Performed At [facility] Range Method Time Signature Specimen Throat [facility] Rapid Strep A NEGATIVE: No Group A strepto coccal antigen detected by immunoassay, await [place] Screen culture report. [facility] Micro Report FINAL 06/01/2013 [facility] LAB Specimen Anatomical Collection Method Collection Time Receive d Time (Source) Location / / Volume Laterality Specimen from 06/01/2013 8:17 PM 06/01/19 14 8:27 throat CARBON DIOXIDE OPERATOR PM CARBON DIOXIDE OPERATOR (specimen) Shon Patel MD LAB - MICRO GENERAL ORDERABL ES Performing Organization Address City/State/ZIP Code Phon e Number [facility] [address] [place], [place] [address] [facility] documented in this encounter Visit Diagnoses Diagnosis Acute pharyngitis - Primary documented in this encounter Administered Medications Inactive Administered Medications - up to 3 most recent administrations Medication Order MAR Action Action Date Dose Rate Site dexamethasone (DECADRON) tablet 12 Given 06/01/2013 8:39 PM CARBON DIOXIDE OPERATOR 12 mg mg 12 mg, Oral, ONCE, On Fri06/01/13 at 2044, For 1 dose documented in this encounter Active and Recently Administered Medications Times are shown in CARBON DIOXIDE OPERATOR. Scheduled Medication Order 05/30/2013 05/31/2013 06/01/2013 dexamethasone (DECADRON) tablet 12 mg (COMPLETED) 2038 (Given - Provider: Lindsay Gregorio RN) 12 mg, Oral, ONCE, Fri06/01/13 at 5, For 1 dose documented in this encounter Care Teams Pattern Painter Relationship Specialty Start Date End Date Jamin Silva MD PCP - General Family Medicine - Sports 06/01/13 Medicine documented as of this encounter
--- OUTSIDE RECORDS SUMMARY | 2022-01-31 19:40 | XMS_ITS | Encounter Summary ---
:1980 Author Organization [facility] Address [address] [place] [id number] Care Team Providers Name Role Phone Jamin Silva MD Primary Care Provider Reason for Visit Reason Comments Abdominal Pain Encounter Details Date Type Department Care Team Description 02/18/2014 - Emergency [facility] Lindsay Lu Ab dominal pain, left 02/19/2014 [facility] Emergency lower quadrant Dept SKIN REJUVENATION (Primary Dx) [address] [place], [place] [address] [facility] [id number] [facility] [phone] JULIOLÁZARO [id number] (Wo rk) Social History Tobacco Use Types Packs/Day Years Used Date Smoking Tobacco: Every Day Cigarettes 0.3 Alcohol Use Standard Drinks/Week Comments No 0 (1 standard drink = 0.6 oz pure alcoho l) Sex Assigned at Date Recorded Not on file documented as of this encounter Last Filed Vital Signs Vital Sign Reading Time Taken Comments Blood Pressure 115/78 02/19/2014 12:03 AM DIESEL ENGINE SPECIALIST Pulse 79 02/19/2014 12:03 AM DIESEL ENGINE SPECIALIST Temperature 36.8 ??C (98.2 ??F) 02/18/2014 8:16 PM DIESEL ENGINE SPECIALIST Respiratory Rate 18 02/18/2014 8:16 PM DIESEL ENGINE SPECIALIST Oxygen Saturation 98% 02/19/2014 12:03 AM DIESEL ENGINE SPECIALIST Inhaled Oxygen Concentration - - Weight 77.6 kg (171 lb) 02/18/2014 8:16 PM DIESEL ENGINE SPECIALIST Height - - Body Mass Index - - documented in this encounter Discharge Instructions Discharge InstructionsLindsay Lu MD - 02/18/2014 11:38 PM DIESEL ENGINE SPECIALIST Discharge Instructions Abdominal Pain Abdominal pain can [...] directed by your doctor today. Before using wefp-hep-agolmob medications, ask your doctor and make sure [...] contain Tylenol?? (acetaminophen), including Vicodin??, Tylenol #3??, [place]??, Lortab??, and Percocet??. You should not take [...] if there is anything that worries you. EL ENGINE SPECIALIST documented in this encounter Medications at Time [...] time. She has not followed up with APPLICATION INTEGRATION SPECIALIST since discharge from the ED. Allergies: NKDA [...] pain, although has not followed up with coal or ore controller. Patient's pain improved with interventions in the ED. I did discuss our chronicand recurrent pain policy with the patient. Patient did have a US that showed a collapsed 1 cm cyst.There is no evidence of torsion, mass, diverticulitis, or other abnormalities. Bloodwork, UA and wetprep were negative. I will have them follow up with coal or ore controller in the next 3 days and return with worsening pain, vomiting or fever. Diagnosis: 1. Left lower quadrant abdominal pain. Bimal Miranda, am serving as a scribe on 02/18/2014 at 9:02 PM to personally document services performed by Dr. Lu, Lindsay Mcdonough MD based on my observations and the provider's statements to me. Bimal Calderón 02/18/2014 [facility] Lindsay Lu MD 02/19/14 0117 EL ENGINE SPECIALIST Floridalma Rivas, RN - 02/18/2014 8:15 PM CST Alert and oriented x 3 airway,breathing and circulation intact LLQ abd pain, has had ovarian cyst since feb 08 , pain worse yesterday, nausea EL ENGINE SPECIALIST documented in this encounter Plan of Treatment Not on filedocumented as of this encounter Procedures Procedure Name Priority Date/Time Associated Comments Diagnosis US PELVIS COMPLETE W STAT 02/18/2014 10:45 Res ults for this TRANSVAGINAL AND PM DIESEL ENGINE SPECIALIST procedure a re in DOPPLER LIMITED the results section. HCG QUALITATIVE URINE STAT 02/18/2014 9:53 PM Results for this DIESEL ENGINE SPECIALIST procedure are i n the results section. ROUTINE UA WITH STAT 02/18/2014 9:53 PM Result s for this MICROSCOPIC DIESEL ENGINE SPECIALIST procedure are i n the results section. WET PREPARATION STAT 02/18/2014 9:31 PM Result s for this DIESEL ENGINE SPECIALIST procedure are i n the results section. NEISSERIA GONORRHOEAE STAT 02/18/2014 9:31 PM Abdominal Renny n, Results for this PCR DIESEL ENGINE SPECIALIST Left Lower Quadrant procedur e are in the results section. CHLAMYDIA TRACHOMATIS STAT 02/18/2014 9:31 PM Abdominal Renny n, Results for this PCR DIESEL ENGINE SPECIALIST Left Lower Quadrant procedur e are in the results section. CBC WITH PLATELETS & STAT 02/18/2014 9:11 PM R esults for this DIFFERENTIAL DIESEL ENGINE SPECIALIST procedure are i n the results section. BASIC METABOLIC PANEL STAT 02/18/2014 9:11 PM Results for this DIESEL ENGINE SPECIALIST procedure are i n the results section. documented in this encounter Results US Pelvic Complete w Transvaginal & Abd/Pel Duplex Limited (02/18/2014 10:45 PM DIESEL ENGINE SPECIALIST) Anatomical Region Laterality Modality Abdomen/Pelvis Ultrasound Specimen (Source) Anatomical Location Collection Method / Collectio n Time Received Time / Laterality Volume Impressions 02/18/2014 11:08 PM DIESEL ENGINE SPECIALIST IMPRESSION: 1. No evidence for ovarian torsion. Norm al blood flow is seen in both ovaries. 2. Collapsing follicle left ovary. 3. Small amount of fluid in the endometr ial cavity. BETSY MILLS MD Narrative 02/18/2014 11:08 PM DIESEL ENGINE SPECIALIST US PELVIS COMPLETE W TRANSVAGINAL AND DOPPLER [...] ORDERABLES HCG qualitative urine (02/18/2014 9:53 PM DIESEL ENGINE SPECIALIST) P athologist Signature HCG Qual Urine Negative NEG [facility] Specimen Anatomical Collection Method Collection Time Receive d Time (Source) Location / / Volume Laterality Urine specimen URINE SPECIMEN 02/18/2014 9:53 PM 02/18 (specimen) OBTAINED BY CLEAN DIESEL ENGINE SPECIALIST 10:[address] CATCH PROCEDURE / Unknown Lindsay Lu MD LAB - URINE ORDERABLES Performing Organization Address City/State/ZIP Code Phon e Number M [facility] [address] [place], [place] [address] [facility] (ABNORMAL) UA with Microscopic (02/18/2014 9:53 PM DIESEL ENGINE SPECIALIST) Patholo gist Method Time Signature Color Urine Yellow [facility] Appearance Urine Clear [facility] Glucose Urine Negative NEG mg/dL [facility] Bilirubin Urine Negative NEG [facility] Ketones Urine Negative NEG mg/dL [facility] Specific [place] 1.016 1.003 - [place] Urine 1.035 [facility] Blood Urine Negative NEG [facility] pH Urine 6.0 5.0 - 7.0 [place] pH [facility] Protein Albumin Negative NEG mg/dL [facility] Urobilinogen Normal 0.0 - 2.0 [place] mg/dL mg/dL [facility] Nitrite Urine Negative NEG [facility] Leukocyte Negative NEG [place] Esterase Urine [facility] Source Midstream [facility] WBC Urine 0 0 - 2 [place] /HPF [facility] RBC Urine <1 0 - 2 [place] /HPF [facility] Squamous <1 0 - 1 [place] Epithelial /HPF /HPF [facility] Mucous Urine Present (A) NEG /LPF [facility] Specimen Anatomical Collection Method Collection Time Receive d Time (Source) Location / / Volume Laterality Urine specimen URINE SPECIMEN 02/18/2014 9:53 PM 02/18 (specimen) OBTAINED BY CLEAN DIESEL ENGINE SPECIALIST 10:[address] CATCH PROCEDURE / Unknown Lindsay Lu MD LAB - URINE ORDERABLES Performing Organization Address City/State/ZIP Code Phon e Number M [facility] [address] [place], [place] [address] [facility] Neisseria gonorrhoea PCR (02/18/2014 9:31 PM DIESEL ENGINE SPECIALIST) Component Value Ref Test Analysis Performed At [facility] Method Time Signature Specimen [facility] N Gonorrhea Negative NEG [facility] PCR [...] swab 02/18/2014 9:31 PM 4 9:35 (specimen) DIESEL ENGINE SPECIALIST PM DIESEL ENGINE SPECIALIST Lindsay Lu MD LAB - MICRO GENERAL ORDERABL ES Performing Organization Address City/[facility]/ZIP Code Phon e Number [place] [phone] [facility] MICROBIOLOGY Chlamydia trachomatis PCR (02/18/2014 9:31 PM DIESEL ENGINE SPECIALIST) Component Value Ref Test Analysis Performed At [facility] Specimen [facility] Chlamydia Negative NEG [facility] Trachomatis Negative for C. trachomatis rRNA by hoop driving machine operator mediated amplification. MICROBIOLOGY PCR A negative result [...] swab 02/18/2014 9:31 PM 4 9:35 (specimen) DIESEL ENGINE SPECIALIST PM DIESEL ENGINE SPECIALIST Lindsay Lu MD LAB - MICRO GENERAL ORDERABL ES Performing Organization Address City/State/ZIP Code Phon e Number [address] [phone] [facility] MICROBIOLOGY Wet prep (02/18/2014 9:31 PM DIESEL ENGINE SPECIALIST) [facility] Method Time Signature Specimen [facility] Wet Prep Few PMNs seen [place] No clue cells seen [facility] No yeast seen [facility] No Trichomonas seen Micro Report FINAL [place] Status 02/18/2014 [facility] Specimen Anatomical Collection Method Collection Time Receive d Time (Source) Location / / Volume Laterality Vaginal swab 02/18/2014 9:31 PM 4 9:35 (specimen) DIESEL ENGINE SPECIALIST PM DIESEL ENGINE SPECIALIST Lindsay Lu MD LAB - MICRO GENERAL ORDERABL ES Performing Organization Address City/State/ZIP Code Phon e Number M [facility] [address] [place], [place] [address] [facility] (ABNORMAL) Basic metabolic panel (02/18/2014 9:11 PM DIESEL ENGINE SPECIALIST) athologist Signature Sodium 139 133 - 144 [place] mmol/L [facility] Potassium 3.7 3.4 - 5.3 [place] mmol/L [facility] Chloride 109 94 - 109 [place] mmol/L [facility] Carbon Dioxide 24 20 - 32 [place] mmol/L [facility] Anion Gap 6 3 - 14 [place] mmol/L [facility] Glucose 82 70 - 99 [place] mg/dL [facility] Comment: Effective 11/10/2013, the reference range for this assay has changed to reflect new instrumentation/methodology. Urea Nitrogen 13 7 - 30 mg/dL [facility] Comment: Effective 11/10/2013, the reference range for this assay has changed to reflect new instrumentation/methodology. Creatinine 0.85 0.52 - 1.04 mg/dL [facility] GFR Estimate 77 >60 mL/min/1.7m2 [facility] Comment: Non GFR Calc GFR Estimate If Black >90 >60 mL/min/1.7m2 F [facility] GFR Calc [facility] Calcium 8.1 (L) 8.5 - 10.1 mg/dL [facility] Comment: Effective 11/10/2013, the reference range for this assay has changed to reflect new instrumentation/methodology. Specimen Anatomical Collection Method Collection Time Receive d Time (Source) Location / / Volume Laterality Blood specimen 02/18/2014 9:11 PM 014 9:12 (specimen) DIESEL ENGINE SPECIALIST PM DIESEL ENGINE SPECIALIST Lindsay uL MD LAB - BLOOD ORDERABLES Performing Organization Address City/State/ZIP Code Phon e Number [facility] [address] [place], [place] [address] [facility] CBC with platelets differential (02/18/2014 9:11 PM DIESEL ENGINE SPECIALIST) [facility] gist Method Time Signature WBC 7.6 4.0 - [place] 11.0 [facility] [address] LAB RBC Count 4.26 3.8 - 5.2 [place] 10e12/L [facility] Hemoglobin 12.7 11.7 - [place] 15.7 g/dL [facility] Hematocrit 38.0 35.0 - [place] 47.0 % [facility] MCV 89 78 - 100 [place] fl [facility] MCH 29.8 26.5 - [place] 33.0 pg [facility] MCHC 33.4 31.5 - [place] 36.5 g/dL [facility] RDW 13.4 10.0 - [place] 15.0 % [facility] Platelet Count 200 150 - [address] LAB Diff Method Automated [facility] LAB % Neutrophils 68.0 % [facility] % Lymphocytes 22.2 % [facility] % Monocytes 8.3 % [facility] % Eosinophils 1.3 % [facility] % Basophils 0.1 % [facility] % Immature 0.1 % [place] Granulocytes [facility] Absolute 5.2 1.6 - 8.3 [place] Neutrophil 10e9/L [facility] Absolute 1.7 0.8 - 5.3 [place] Lymphocytes [address] [place] [address] LAB Absolute 0.6 0.0 - 1.3 [place] Monocytes [address] LAB Absolute 0.1 0.0 - 0.7 [place] Eosinophils [address] LAB Absolute 0.0 0.0 - 0.2 [place] Basophils [address] [place] [address] LAB Abs Immature 0.0 0 - 0.4 [place] Granulocytes [address] [place] [address] LAB Specimen Anatomical Collection Method Collection Time Receive d Time (Source) Location / / Volume Laterality Blood specimen 02/18/2014 9:11 PM 014 9:12 (specimen) DIESEL ENGINE SPECIALIST PM DIESEL ENGINE SPECIALIST Lindsay Lu MD LAB - BLOOD ORDERABLES Performing Organization Address City/State/ZIP Code Phon e Number M [facility] [address] [place], [place] [address] [facility] documented in this encounter Visit Diagnoses Diagnosis Abdominal pain, left lower quadrant - Pr imary documented in this encounter Administered Medications Inactive Administered Medications - up to 3 most recent administrations Medication Order MAR Action Action Date Dose Rate Site diphenhydrAMINE (BENADRYL) Given 02/18/2014 9:16 PM DIESEL ENGINE SPECIALIST 25 mg injection 25 mg 25 mg, Intravenous, ONCE, On Fri02/18/14 at 2107, For 1 dose ketorolac (TORADOL) injection 30 mg Given 02/18/2014 9:14 PM DIESEL ENGINE SPECIALIST 30 mg 30 mg, Intravenous, ONCE, On Fri02/18/14 at 2107, For 1 dose, Do not give within 6 hours of Ibuprofen. oxyCODONE-acetaminophen (PERCOCET) 5-325 Given 02/18/2014 10 :43 PM DIESEL ENGINE SPECIALIST 1 tablet MG per tablet 1 tablet [...] 1 0 mg Given 02/18/2014 9:18 PM DIESEL ENGINE SPECIALIST 10 mg 10 mg, Intravenous, ONCE, On Fri02/18/14 at 2107, For 1 dose sodium chloride 0.9 % BOLUS New Bag 02/18/2014 9:14 PM DIESEL ENGINE SPECIALIST 1,000 m Ls 1000 mL/hr 1,000 mL Intravenous, 1,000 mL, ONCE, at 1,000 mL/hr, Administer over 1 Hours, On Fri02/18/14 at 2107, For 1 dose documented in this encounter Active and Recently Administered Medications Times are shown in DIESEL ENGINE SPECIALIST. Scheduled Medication Order 02/17/2014 02/18/2014 02/19/2014 diphenhydrAMINE (BENADRYL) injection 25 mg (COMPLETED) 2115 (Given - Provider: Susan Izaguirre RN) 25 mg, Intravenous, ONCE, Fri02/18/14 at 210, For 1 dose ketorolac (TORADOL) injection 30 mg (COMPLETED) 2113 (Given - Provider: Susan Izaguirre RN) 30 mg, Intravenous, ONCE, Fri02/18/14 at 2107, For 1 dose, Do not give within 6 hours of Ibuprofen. oxyCODONE-acetaminophen (PERCOCET) 5-325 MG per tablet 1 tab let (COMPLETED) 2240 (Due)2243 (Given - Provider: Brittney Feldman, ANGE) 1 tablet, Oral, ONCE, Fri02/18/14 at 224 1, For 1 dose, Maximum acetaminophen dose from all sources= 75 mg/kg/day not to exceed 4 grams prochlorperazine (COMPAZINE) injection 10 mg (COMPLETED) 2117 (Given - Provider: Susan Izaguirre RN) 10 mg, Intravenous, ONCE, Fri02/18/14 at 2107, For 1 dose sodium chloride 0.9 % BOLUS 1,000 mL (COMPLETED) 2113 (New Bag - Provider: Susan Izaguirre RN)2344 (Stopped - Provider: Brittney Feldman, ANGE) Intravenous, 1,000 mL, ONCE, at 1,000 mL /hr, Administer over 1 Hours, On Fri02/18/14 at 2107, For 1 dose documented in this encounter Care Teams Churn Tender Relationship Specialty Start Date End Date Jamin Silva MD PCP - General Family Medicine - Sports 06/01/13 Medicine documented as of this encounter
--- OUTSIDE RECORDS SUMMARY | 2022-01-31 19:40 | XMS_ITS | Encounter Summary ---
:1980 Author Organization [facility] Address [address] [place] [id number] Care Team Providers Name Role Phone Jamin Silva MD Primary Care Provider Reason for Visit Reason Comments Abdominal Pain Encounter Details Date Type Department Care Team Description 03/30/2014 Emergency [facility] Courtney Hodges MD Left sided abdominal pain; [facility] Emergency Dep t EMERGENCY PHYSICIANS Other and unspecified ovaria n cyst [address] [place], [place] [address] [facility] [id number] [place], [place] [id number] (Wo rk) Social History Tobacco Use Types Packs/Day Years Used Date Smoking Tobacco: Every Day Cigarettes 0.3 Alcohol Use Standard Drinks/Week Comments No 0 (1 standard drink = 0.6 oz pure alcoho l) Sex Assigned at Date Recorded Not on file documented as of this encounter Last Filed Vital Signs Vital Sign Reading Time Taken Comments Blood Pressure 131/90 03/30/2014 4:32 PM NEUROPATHOLOGIST Pulse 100 03/30/2014 12:45 PM NEUROPATHOLOGIST Temperature 36.5 ??C (97.7 ??F) 03/30/2014 12:45 PM NEUROPATHOLOGIST Respiratory Rate 16 03/30/2014 2:20 PM NEUROPATHOLOGIST Oxygen Saturation 97% 03/30/2014 4:32 PM NEUROPATHOLOGIST Inhaled Oxygen Concentration - - Weight - [...] contain Tylenol?? (acetaminophen), including Vicodin??, Tylenol #3??, [place]??, Lortab??, and Percocet??. You should not take [...] directed by your doctor today. Before using [id number] medications, ask your doctor and make sure [...] contain Tylenol?? (acetaminophen), including Vicodin??, Tylenol #3??, [place]??, Lortab??, and Percocet??. You should not take [...] if there is anything that worries you. OPATHOLOGIST documented in this encounter Medications at Time [...] to bathroom. Pt tolerated well. UA obtained OPATHOLOGIST Courtney Hodges MD - 03/30/2014 2:23 PM [...] her. She has an appointment with gene bansk tomorrow. I recommended she follow up with [...] provider's statements to me. Buffy Curtis 03/30/2014 [facility] EMERGENCY DEPARTMENT Courtney Hodges MD 03/31/14 0037 OPATHOLOGIST Meena Walker RN - 03/30/2014 12:46 PM CST Left lower abd pain- history of ovarian cyst. ABC Intact alert and no distress. OPATHOLOGIST documented in this encounter Plan of Treatment Not on filedocumented as of this encounter Procedures Procedure Name Priority Date/Time Associated Comments Diagnosis US PELVIS COMPLETE W STAT 03/30/2014 3:51 PM R esults for this TRANSVAGINAL AND NEUROPATHOLOGIST procedure a re in DOPPLER LIMITED the results section. CBC WITH PLATELETS & STAT 03/30/2014 2:40 PM R esults for this DIFFERENTIAL NEUROPATHOLOGIST procedure are i n the results section. LIPASE STAT 03/30/2014 2:40 PM Results f or this NEUROPATHOLOGIST procedure are i n the results section. COMPREHENSIVE STAT 03/30/2014 2:40 PM Results for this METABOLIC PANEL NEUROPATHOLOGIST procedure ar e in the results section. HCG QUALITATIVE URINE STAT 03/30/2014 2:38 PM Results for this NEUROPATHOLOGIST procedure are i n the results section. ROUTINE UA WITH STAT 03/30/2014 2:38 PM Result s for this MICROSCOPIC NEUROPATHOLOGIST procedure are i n the results section. documented in this encounter Results US Pelvic Complete w Transvaginal & Abd/Pel Duplex Limited (03/30/2014 3:51 PM NEUROPATHOLOGIST) Anatomical Region Laterality Modality Abdomen/Pelvis Ultrasound Specimen (Source) Anatomical Location Collection Method / Collectio n Time Received Time / Laterality Volume Narrative 03/30/2014 3:58 PM NEUROPATHOLOGIST PELVIC ULTRASOUND 03/30/2014 3:51 PM HISTORY: Pelvic [...] ovaries. DWIGHT RAZO MD Courtney Hodges MD [facility] US ORDERABLES Lipase (03/30/2014 2:40 PM NEUROPATHOLOGIST) athologist Signature Lipase 110 73 - 393 [facility] U/L [facility] Comment: Effective 11/10/2013, the reference range for this assay has changed to reflect new instrumentation/methodology. Specimen Anatomical Collection Method Collection Time Receive d Time (Source) Location / / Volume Laterality Blood specimen 03/30/2014 2:40 PM 014 2:56 (specimen) NEUROPATHOLOGIST PM NEUROPATHOLOGIST Courtney Hodges MD LAB - BLOOD ORDERABLES Performing Organization Address City/State/ZIP Code Phon e Number M [facility] [address] [address] [facility] Comprehensive metabolic panel (03/30/2014 2:40 PM NEUROPATHOLOGIST) athologist Signature Sodium 135 133 - 144 [place] mmol/L [facility] Potassium 4.0 3.4 - 5.3 [place] mmol/L [facility] Chloride 105 94 - 109 [place] mmol/L [facility] Carbon Dioxide 26 20 - 32 [place] mmol/L [facility] Anion Gap 4 3 - 14 [place] mmol/L [facility] Glucose 97 70 - 99 [place] mg/dL [facility] Comment: Effective 11/10/2013, the reference range for this assay has changed to reflect new instrumentation/methodology. Urea Nitrogen 17 7 - 30 mg/dL [facility] Comment: Effective 11/10/2013, the reference range for this assay has changed to reflect new instrumentation/methodology. Creatinine 0.77 0.52 - 1.04 mg/dL [facility] GFR Estimate 87 >60 mL/min/1.7m2 [facility] Comment: Non GFR Calc GFR Estimate If Black >90 >60 mL/min/1.7m2 F [facility] GFR Calc [facility] LAB Calcium 8.6 8.5 - 10.1 mg/dL [facility] Comment: Effective 11/10/2013, the reference range for this assay has changed to reflect new instrumentation/methodology. Bilirubin Total 0.3 0.2 - 1.3 mg/dL [facility] Albumin 3.8 3.4 - 5.0 g/dL [facility] Protein Total 7.1 6.8 - 8.8 g/dL [facility] Alkaline Phosphatase 80 40 - 150 U/L [facility] ALT 34 0 - 50 U/L [facility] AST 23 0 - 45 U/L [facility] Specimen Anatomical Collection Method Collection Time Receive d Time (Source) Location / / Volume Laterality Blood specimen 03/30/2014 2:40 PM 014 2:56 (specimen) NEUROPATHOLOGIST PM NEUROPATHOLOGIST Courtney Hodges MD LAB - BLOOD ORDERABLES Performing Organization Address City/State/ZIP Code Phon e Number M [facility] [address] [place], [place] [address] [facility] CBC with platelets differential (03/30/2014 2:40 PM NEUROPATHOLOGIST) [facility] gist Method Time Signature WBC 8.7 4.0 - [place] 11.0 [facility] 10e9/L HOSPITAL LAB RBC Count 4.70 3.8 - 5.2 [place] 10e12/L [facility] Hemoglobin 14.1 11.7 - [place] 15.7 g/dL [facility] Hematocrit 41.0 35.0 - [place] 47.0 % [facility] MCV 87 78 - 100 [place] fl [facility] MCH 30.0 26.5 - [place] 33.0 pg [facility] MCHC 34.4 31.5 - [place] 36.5 g/dL [facility] RDW 13.1 10.0 - [place] 15.0 % [facility] Platelet Count 233 150 - 450 [place] [facility] Diff Method Automated [facility] LAB % Neutrophils 68.9 % [facility] % Lymphocytes 23.0 % [facility] % Monocytes 6.6 % [facility] % Eosinophils 1.2 % [facility] % Basophils 0.1 % [facility] % Immature 0.2 % [place] Granulocytes [facility] Absolute 6.0 1.6 - 8.3 [place] Neutrophil 10e9/L [facility] Absolute 2.0 0.8 - 5.3 [place] Lymphocytes [facility] Absolute 0.6 0.0 - 1.3 [place] Monocytes [facility] Absolute 0.1 0.0 - 0.7 [place] Eosinophils [facility] Absolute 0.0 0.0 - 0.2 [place] Basophils [address] LAB Abs Immature 0.0 0 - 0.4 [place] Granulocytes [address] [place] [address] LAB Specimen Anatomical Collection Method Collection Time Receive d Time (Source) Location / / Volume Laterality Blood specimen 03/30/2014 2:40 PM 014 2:56 (specimen) NEUROPATHOLOGIST PM NEUROPATHOLOGIST Courtney Hodges MD LAB - BLOOD ORDERABLES Performing Organization Address City/State/ZIP Code Phon e Number M [facility] [address] [place], [place] [address] [facility] HCG qualitative urine (03/30/2014 2:38 PM NEUROPATHOLOGIST) athologist Signature HCG Qual Urine Negative NEG [facility] Specimen Anatomical Collection Method Collection Time Receive d Time (Source) Location / / Volume Laterality Urine specimen 03/30/2014 2:38 PM 014 2:55 (specimen) NEUROPATHOLOGIST PM NEUROPATHOLOGIST Courtney Hodges MD LAB - URINE ORDERABLES Performing Organization Address [facility]/ZIP [facility] Phon e Number M [facility] [address] [place], [place] [address] [facility] (ABNORMAL) UA with Microscopic (03/30/2014 2:38 PM NEUROPATHOLOGIST) [facility] Method Time Signature Color Urine Yellow [facility] Appearance Urine Clear [facility] Glucose Urine Negative NEG mg/dL [facility] Bilirubin Urine Negative NEG [facility] Ketones Urine Negative NEG mg/dL [facility] Specific [place] 1.016 1.003 - [place] Urine 1.035 [facility] Blood Urine Negative NEG [facility] pH Urine 5.5 5.0 - 7.0 [place] pH [facility] Protein Albumin Negative NEG mg/dL [facility] Urobilinogen Normal 0.0 - 2.0 [place] mg/dL mg/dL [facility] Nitrite Urine Negative NEG [facility] Leukocyte Negative NEG [place] Esterase Urine [facility] Source [facility] WBC Urine 0 0 - 2 [place] /HPF [facility] RBC Urine 1 0 - 2 [place] /HPF [facility] Squamous <1 0 - 1 [place] Epithelial /HPF /HPF [facility] LAB Mucous Urine Present (A) NEG /LPF [facility] Specimen Anatomical Collection Method Collection Time Receive d Time (Source) Location / / Volume Laterality Urine specimen 03/30/2014 2:38 PM 014 2:55 (specimen) NEUROPATHOLOGIST PM NEUROPATHOLOGIST Courtney Hodges MD LAB - URINE ORDERABLES Performing Organization Address [facility] Phon e Number M [place] [address] [place], [place] [address] [facility] documented in this encounter Visit Diagnoses Diagnosis Left sided abdominal pain Abdominal pain, unspecified site Other and unspecified ovarian cyst documented in this encounter Administered Medications Inactive Administered Medications - up to 3 most recent administrations Medication Order MAR Action Action Date Dose Rate Site ketorolac (TORADOL) injection 30 mg Given 03/30/2014 2:55 PM NEUROPATHOLOGIST 30 mg 30 mg, Intravenous, ONCE, On Fri03/30/14 at 1427, For 1 dose, Do not give within 6 hours of Ibuprofen. ondansetron (ZOFRAN) injection 4 mg Given 03/30/2014 2:54 PM NEUROPATHOLOGIST 4 mg 4 mg, Intravenous, EVERY 30 MIN PRN, nausea, vomiting, Administer over 2-5 Minutes, Starting on Fri03/30/14 at 1426, For 3 doses, May repeat in 30 minutes as needed, up to 3 doses. sodium chloride 0.9 % BOLUS New Bag 03/30/2014 2:48 PM NEUROPATHOLOGIST 1,000 m Ls 1000 mL/hr 1,000 mL Intravenous, 1,000 mL, ONCE, at 1,000 mL/hr, Administer over 1 Hours, On Fri03/30/14 at 1427, For 1 dose documented in this encounter Active and Recently Administered Medications Times are shown in NEUROPATHOLOGIST. Scheduled Medication Order 03/28/2014 03/29/2014 03/30/2014 ketorolac (TORADOL) injection 30 mg (COMPLETED) 1455 (Given - Provider: Colette Aguiar RN) 30 mg, Intravenous, ONCE, Fri03/30/14 a t [...] doses. documented in this encounter Care Teams Special Assemblies Supervisor Relationship Specialty Start Date End Date Jamin Silva MD PCP - General Family Medicine - Sports 06/01/13 Medicine documented as of this encounter
[2022-01-31 20:06] LABS: Basophils Absolute Auto 0.01 K/uL (0.00-0.30); Basophils Percent Auto 0.1 % (0.0-3.0); Eosinophils Absolute Auto 0.09 K/uL (0.00-0.50); Eosinophils Percent Auto 1.1 % (0.0-7.0); Hemoglobin* 12.7 gm/dL (12.0-16.0); Immature Granulocytes Abs Auto 0.01 K/uL (0.00-0.30); Lymphocytes Absolute Auto 2.27 K/uL (0.90-2.90); Lymphocytes Percent Auto 27.7 % (20-44); Mean Corpuscular HGB Conc 34 gm/dL (32-36); Mean Corpuscular Hemoglobin 31 pg (26-34); Mean Corpuscular Volume 89 fL (80-100); Neutrophils Absolute Auto 5.25 K/uL (1.7-7.0); Platelet Count* 222 K/uL (140-440); RDW Coefficient of Variation % 12.7 % (11.5-15.5); Red Blood Count 4.15 m/uL (4.00-5.20)
[2022-01-31 20:07] LABS: Slide Review Reflex No
[2022-01-31 20:18] LABS: Chloride* 103 mmol/L (96-114); Potassium* 3.7 mmol/L (3.6-5.1); Sodium* 134 mmol/L (135-149)
[2022-01-31 20:21] LABS: Blood Urea Nitrogen* 18 mg/dL (5-24); Carbon Dioxide* 23 mmol/L (20-32); Creatinine* 0.8 mg/dL (0.5-1.5); Est. Creatinine Clearance* 87.51; Estimated Glomerular Filt Rate 95 ml/min; Glucose* 89 mg/dL (60-115)
[2022-01-31 20:22] LABS: Calcium* 9.3 mg/dL (8.4-10.6)
== END 2022-01-31 22:47 | disposition home or self-care (01) ==
PROVIDERS: Emergency Provider Emergency Medicine Emergency Medical Services; PCP Family Medicine
DX: R10.31 Right lower quadrant pain (principal)
CPT/HCPCS: 36415; 74177; 80048; 85025; 96374; 96375; 99284; Q9967

== ENCOUNTER 2022-03-15 08:52 | Emergency (ER) | payer BC, SELFPAY ==
[2022-03-15 09:04] VITALS: BP 120/82; PULSE 87; RESP 18; TEMP 36.4; O2SAT 97; BMI 28.1
[2022-03-15 09:49] LABS: Appearance Urine Clear (Clear); Bilirubin Urine Negative (Negative); Blood Urine Negative (Negative); Color Urine Yellow (Yellow); Glucose Urine Negative (Negative); Ketones Urine Trace (Negative); Leukocyte Esterase Urine Negative (Negative); Nitrite Urine Negative (Negative); Protein Urine Negative (Negative); Specific Gravity Urine >= 1.030 (1.000-1.030); Urobilinogen Urine 0.2 (0.2-1.0); pH Urine 5.5 (5.0-8.5)
[2022-03-15 10:05] LABS: RBC Urine 0-2 (0-2); Squamous Epithelial Cell Urine Few (None-Few); WBC Urine 0-2 (0-5)
[2022-03-15 10:06] LABS: Bacteria Urine Moderate; Mucus Urine Many; Other Sediment Urine MODERATE YEAST
[2022-03-15 11:24] VITALS: BP 114/81; PULSE 66; RESP 18; O2SAT 96
--- NOTE | 2022-03-15 12:17 | CRLHL7_ITS ---
For Patients: As a result of the Century Cures Act, medical imaging exams and procedure reports are released immediately into your electronic medical record. You may view this report before your referring provider. If you have questions, please contact your health care provider. INDICATION: Right pelvic pain. TECHNIQUE: Ultrasound pelvis transabdominal and transvaginal for better assessment or to better visualize the endometrium. Real-time sonographic images with spectral and color Doppler imaging of the ovaries were obtained. COMPARISON: None. FINDINGS: Uterus: Surgically absent. Ovaries: The left ovary is surgically absent. The right ovary measures 3.5 x 1.8 x 2.1 cm. No ovarian or adnexal masses. Normal arterial and venous blood flow in the right ovary. Cul-de-sac: No significant free fluid. IMPRESSION: 1. Hysterectomy and left oophorectomy. 2. Normal sonographic appearance of the right ovary. Dictated by Kapil Guadarrama MD @ 03/15/2022 1:49:20 PM (Electronically Signed)
--- OUTSIDE RECORDS SUMMARY | 2022-03-15 12:28 | XMS_ITS | Clinical Summary ---
:1980 Author Organization [facility] Address [address] [place] [address] Care Team Providers Name Role Phone Clinic, [facility] Primary Care Provide r Allergies Active Allergy [...] ss Type Group BCBS BCBS OUT OF [id number] 2019-Present [phone] [address] [address] [place] [address] [phone] [id number] (Home) none (Work) Dante WILSON [address] Care Teams [place] Relationship Specialty Start Date End Date Clinic, [facility] Medical PCP - General 12/30/201999 [place] [address]
--- OUTSIDE RECORDS SUMMARY | 2022-03-15 12:29 | XMS_ITS | Encounter Summary ---
:1980 Author Organization [place] Address [address] [place] [address] Care Team Providers Name Role Phone Jamin Silva MD Primary Care Provider Reason for Visit Reason Comments Abdominal Pain Encounter Details Date Type Department Care Team Description 05/14/2014 Emergency [facility] Carlos Lee MD Chronic abdominal pain [facility] Emergency Dep t [facility] [address] [place], [place] [address] [facility] [address] [place] [address] [phone] (Wo rk) Social History Tobacco Use Types Packs/Day Years Used Date Smoking Tobacco: Every Day Cigarettes 0.3 Alcohol Use Standard Drinks/Week Comments No 0 (1 standard drink = 0.6 oz pure alcoho l) Sex Assigned at Date Recorded Not on file documented as of this encounter Last Filed Vital Signs Vital Sign Reading Time Taken Comments Blood Pressure 122/77 05/14/2014 5:07 PM SIDE DOOR WORKER Pulse 103 05/14/2014 12:54 PM SIDE DOOR WORKER Temperature 36.8 ??C (98.2 ??F) 05/14/2014 12:54 PM SIDE DOOR WORKER Respiratory Rate 24 05/14/2014 12:54 PM SIDE DOOR WORKER Oxygen Saturation 99% 05/14/2014 1:00 PM SIDE DOOR WORKER Inhaled Oxygen Concentration - - Weight 77.1 kg (170 lb) 05/14/2014 12:54 PM SIDE DOOR WORKER Height 167.6 cm (5' 6) 05/14/2014 12:54 PM SIDE DOOR WORKER Body Mass Index 27.44 05/14/2014 12:54 PM SIDE DOOR WORKER documented in this encounter Discharge Instructions Discharge [...] directed by your doctor today. Before using [id number] medications, ask your doctor and make sure [...] contain Tylenol?? (acetaminophen), including Vicodin??, Tylenol #3??, Red [place]??, Lortab??, and Percocet??. You should not take [...] if there is anything that worries you. DOOR WORKER documented in this encounter Medications at Time [...] - 05/14/2014 4:22 PM CST Pt sleeping. DOOR WORKER Meredith Garcia RN - 05/14/2014 4:22 PM CST td DOOR WORKER Ailin Lucas RN - 05/14/2014 2:22 PM CST Pt to U/S at this time. DOOR WORKER Carlos Lee MD - 05/14/2014 1:17 PM [...] nausea, vomiting, diarrhea, dysuria, or back pain[facility] ABDOMEN PELVIS W 05/13/2014 [...] as needed for nausea Prem Turner 05/14/2014 [facility] EM[facility]GENCY DEPARTMENT I, Prem Turner, am serving as a scribe at 1:42 PM on 05/14/2014 to document services personally performed by Dr. Lee, based on my observations and the provider's statements to me. Carlos Lee MD 05/14/14 0287 DOOR WORKER Lashae Valentine RN - 05/14/2014 12:56 PM CST Patient presents with severe left lower abdominal pain, rating her pain a 10 on a 1-10 scale. Of note, patient had an abdominal CT yesterday with normal results. Pain persists, increasing in severitylast evening. DOOR WORKER documented in this encounter Plan of Treatment Not on filedocumented as of this encounter Procedures Procedure Name Priority Date/Time Associated Comments Diagnosis OCCULT BLOOD STOOL STAT 05/14/2014 3:24 PM Chronic abdomina l Results for this SIDE DOOR WORKER pain procedure are i n the results section. WET PREPARATION STAT 05/14/2014 3:24 PM Chronic abdominal R esults for this SIDE DOOR WORKER pain procedure are i n the results section. NEISSERIA GONORRHOEAE STAT 05/14/2014 3:24 PM Chronic abdom inal Results for this PCR SIDE DOOR WORKER pain procedure are i n the results section. CHLAMYDIA TRACHOMATIS STAT 05/14/2014 3:24 PM Chronic abdom inal Results for this PCR SIDE DOOR WORKER pain procedure are i n the results section. US PELVIS COMPLETE W STAT 05/14/2014 3:03 PM R esults for this TRANSVAGINAL AND SIDE DOOR WORKER procedure a re in DOPPLER LIMITED the results section. ROUTINE UA WITH STAT 05/14/2014 2:39 PM Chronic abdominal R esults for this MICROSCOPIC SIDE DOOR WORKER pain procedure are i n the results section. LACTIC ACID STAT 05/14/2014 2:00 PM Results f or this SIDE DOOR WORKER procedure are i n the results section. CBC WITH PLATELETS & STAT 05/14/2014 1:00 PM R esults for this DIFFERENTIAL SIDE DOOR WORKER procedure are i n the results section. LIPASE STAT 05/14/2014 1:00 PM Results f or this SIDE DOOR WORKER procedure are i n the results section. COMPREHENSIVE STAT 05/14/2014 1:00 PM Results for this METABOLIC PANEL SIDE DOOR WORKER procedure ar e in the results section. documented in this encounter Results (ABNORMAL) Stool: occult blood (05/14/2014 3:24 PM SIDE DOOR WORKER) [facility] Method Time Signature Occult Blood Positive (A) NEG [facility] Specimen Anatomical Collection Method Collection Time Receive d Time (Source) Location / / Volume Laterality Stool specimen STOOL SPECIMEN / 05/14/2014 3:24 PM 3:40 (specimen) Unknown SIDE DOOR WORKER PM SIDE DOOR WORKER Carlos Lee MD LAB - STOOLS ORDERABLES Performing Organization Address City/State/ZIP Code Phon e Number [place] [address] [address] [address] [place] [address] [address] [place] [address] [address] 7 Neisseria gonorrhoea PCR (05/14/2014 3:24 PM SIDE DOOR WORKER) Component Value Ref Test Analysis Performed At [facility] Method Time Signature Specimen Vagina [facility] N Gonorrhea Negative NEG [facility] PCR Negative for N. gonorrhoeae rRNA by transcripti on mediated amplification. [place] [facility] A negative result by transc ription mediated amplification does not preclude the [facility] presence of N. gonorrhoeae infection because re sults are dependent on proper BANK and adequate collection, absence of inhibitors, and suffici ent rRNA to be detected. Specimen Anatomical Collection Method Collection Time Receive d Time (Source) Location / / Volume Laterality Vaginal swab 05/14/2014 3:24 PM 5 3:39 (specimen) SIDE DOOR WORKER PM SIDE DOOR WORKER Carlos Lee MD LAB - MICRO GENERAL ORDERABL ES Performing Organization Address City/[facility]/ZIP Code Phon e Number [address] [address] [facility] [address] [place], [place] [address] 7 Chlamydia trachomatis PCR (05/14/2014 3:24 PM SIDE DOOR WORKER) Component Value Ref Test Analysis Performed At [facility] AWID Range Method Time Signature Specimen Vagina [facility] Chlamydia Negative NEG [facility] Tr[facility] Negative for C. trachomatis rRNA by multimedia designer mediated amplification. [place] [facility] PCR A negative result by transc ription mediated amplification does not preclude the [facility] presence of C. trachomatis infection because re sults are dependent on proper BANK and adequate collection, absence of inhibitors, and suffici ent rRNA to be detected. Specimen Anatomical Collection Method Collection Time Receive d Time (Source) Location / / Volume Laterality Vaginal swab 05/14/2014 3:24 PM 5 3:39 (specimen) SIDE DOOR WORKER PM SIDE DOOR WORKER Carlos Lee MD LAB - MICRO GENERAL ORDERABL ES Performing Organization Address [facility] Phon e Number [address] [address] [facility] [address] [place], [place] [address] 7 Wet prep (05/14/2014 3:24 PM SIDE DOOR WORKER) [facility] Method Time Signature Specimen Vagina [facility] Wet Prep Few PMNs seen [place] No Trichomonas seen [facility] No yeast seen HOSPITAL No clue cells seen Micro Report FINAL [place] Status 05/14/2014 [facility] Specimen Anatomical Collection Method Collection Time Receive d Time (Source) Location / / Volume Laterality Vaginal swab 05/14/2014 3:24 PM 5 3:39 (specimen) SIDE DOOR WORKER PM SIDE DOOR WORKER Carlos Lee MD LAB - MICRO GENERAL ORDERABL ES Performing Organization Address City/[facility]/ZIP Code Phon e Number [facility] [address] [phone] [facility] [address] [address] 7 US Pelvic Complete w Transvaginal & Abd/Pel Duplex Limited (05/14/2014 3:03 PM SIDE DOOR WORKER) Anatomical Region Laterality Modality Abdomen/Pelvis Ultrasound Specimen (Source) Anatomical Location Collection Method / Collectio n Time Received Time / Laterality Volume Impressions 05/14/2014 3:48 PM SIDE DOOR WORKER IMPRESSION: No torsion demonstrated. Small cyst in the right ovary. ZINA MURRAY MD Narrative 05/14/2014 3:48 PM SIDE DOOR WORKER ULTRASOUND PELVIS ??WITH TRANSVAGINAL IMAGING ??05/14/2014 3:03 [...] (ABNORMAL) UA with Microscopic (05/14/2014 2:39 PM SIDE DOOR WORKER) [facility] Method Time Signature Color Urine Yellow [facility] Appearance Urine Clear [facility] Glucose Urine Negative NEG mg/dL [facility] Bilirubin Urine Negative NEG [facility] Ketones Urine Negative NEG mg/dL [facility] Specific [place] 1.016 1.003 - [place] Urine 1.035 [facility] Blood Urine Negative NEG [facility] pH Urine 6.0 5.0 - 7.0 [facility] Protein Albumin Negative NEG mg/dL [place] Urine [facility] Urobilinogen Normal 0.0 - 2.0 [place] mg/dL mg/dL [facility] Nitrite Urine Negative NEG [facility] Leukocyte Negative NEG [place] Esterase Urine [facility] Source Midstream [facility] WBC Urine <1 0 - 2 [facility] RBC Urine <1 0 - 2 [facility] Mucous Urine Present (A) NEG /LPF [facility] Specimen Anatomical Location Collection Method Collection Time Received Time (Source) / Laterality / Volume Urine specimen URINE SPECIMEN 05/14/2014 2:39 05/14/19 15 3:07 (specimen) COLLECTION, PM SIDE DOOR WORKER PM SIDE DOOR WORKER CATHETERIZED / Unknown Carlos Lee MD LAB - URINE ORDERABLES Performing Organization Address City/[facility]/[address] [address] [place] [address] [address] [place], [place] [address] 7 Lactic acid (05/14/2014 2:00 PM SIDE DOOR WORKER) athologist Signature Lactic Acid 1.0 0.4 - 2.0 [place] mmol/[facility] Specimen Anatomical Collection Method Collection Time Receive d Time (Source) Location / / Volume Laterality Blood specimen 05/14/2014 2:00 PM 015 2:25 (specimen) SIDE DOOR WORKER PM SIDE DOOR WORKER Carlos Lee MD LAB - BLOOD ORDERABLES Performing Organization Address City/[facility] [address] [place], [place] [address] [facility] [address] [place], [place] [address] 7 Lipase (05/14/2014 1:00 PM SIDE DOOR WORKER) athologist Signature Lipase 154 73 - 393 [facility] U/[facility] Comment: Effective 11/10/2013, the reference range for this assay has changed to reflect new instrumentation/methodology. Specimen Anatomical Collection Method Collection Time Receive d Time (Source) Location / / Volume Laterality Blood specimen 05/14/2014 1:00 PM 015 2:24 (specimen) SIDE DOOR WORKER PM SIDE DOOR WORKER Carlos Lee MD LAB - BLOOD ORDERABLES Performing Organization Address City/State/ZIP Code Phon e Number M [facility] [address] [place], [place] [address] [facility] [address] [place], [place] [address] 7 (ABNORMAL) Comprehensive metabolic panel (05/14/2014 1:00 PM SIDE DOOR WORKER) athologist Signature Sodium 136 133 - 144 [place] mmol/L [facility] Potassium 3.9 3.4 - 5.3 [place] mmol/L [facility] Chloride 106 94 - 109 [place] [facility] Carbon Dioxide 23 20 - 32 [place] mmol/L [facility] Anion Gap 7 3 - 14 [place] mmol/L [facility] Glucose 85 70 - 99 [place] mg/dL [facility] Comment: Effective 11/10/2013, the reference range for this assay has changed to reflect new instrumentation/methodology. Urea Nitrogen 14 7 - 30 mg/dL [facility] Comment: Effective 11/10/2013, the reference range for this assay has changed to reflect new instrumentation/methodology. Creatinine 0.75 0.52 - 1.04 mg/dL [facility] GFR Estimate 90 >60 mL/min/1.7m2 [facility] Comment: Non GFR Calc GFR Estimate If Black >90 >60 mL/min/1.7m2 [facility] GFR Calc HOSP ITAL Calcium 8.4 (L) 8.5 - 10.1 mg/dL [facility] Comment: Effective 11/10/2013, the reference range for this assay has changed to reflect new instrumentation/methodology. Bilirubin Total 0.3 0.2 - 1.3 mg/dL [facility] Albumin 3.5 3.4 - 5.0 g/dL [facility] Protein Total 7.4 6.8 - 8.8 g/dL [facility] Alkaline Phosphatase 68 40 - 150 U/L [facility] ALT 22 0 - 50 U/L [facility] HOS PITAL AST 16 0 - 45 U/L [facility]OS PITAL Specimen Anatomical Collection Method Collection Time Receive d Time (Source) Location / / Volume Laterality Blood specimen 05/14/2014 1:00 PM 015 2:24 (specimen) SIDE DOOR WORKER PM SIDE DOOR WORKER Carlos Lee MD LAB - BLOOD ORDERABLES Performing Organization Address City/State/ZIP Code Phon e Number M [facility] [address] [place], [place] [address] [facility] [address] [place], [place] [address] 7 CBC with platelets differential (05/14/2014 1:00 PM SIDE DOOR WORKER) [facility] Method Time Signature WBC 8.3 4.0 - [place] 11.0 [facility] 10e9/[facility] RBC Count 4.59 3.8 - 5.2 [place] 10e12/L [facility] Hemoglobin 13.4 11.7 - [place] 15.7 g/dL [facility] Hematocrit 40.2 35.0 - [place] 47.0 % [facility] MCV 88 78 - 100 [facility] MCH 29.2 26.5 - [facility] 33.0 pg [facility] MCHC 33.3 31.5 - [place] 36.5 g/dL [facility] RDW 13.2 10.0 - [place] 15.0 % [facility] Platelet Count 248 150 - [address] Diff Method Automated [facility] % Neutrophils 74.9 % [facility] % Lymphocytes 19.9 % [facility] % Monocytes 3.6 % [facility] % Eosinophils 1.1 % [facility] % Basophils 0.1 % [facility] % Immature 0.4 % [place] Granulocytes [facility] Absolute 6.2 1.6 - 8.3 [place] Neutrophil 10e9/L [facility] Absolute 1.6 0.8 - 5.3 [place] Lymphocytes 10e9/L [facility] Absolute 0.3 0.0 - 1.3 [place] Monocytes 10e9/L [facility] Absolute 0.1 0.0 - 0.7 [place] Eosinophils 10e9/[facility] Absolute 0.0 0.0 - 0.2 [place] Basophils 10e9/L [facility] Abs Immature 0.0 0 - 0.4 [place] Granulocytes 10e9/L [facility] Specimen Anatomical Collection Method Collection Time Receive d Time (Source) Location / / Volume Laterality Blood specimen 05/14/2014 1:00 PM 015 2:24 (specimen) SIDE DOOR WORKER PM SIDE DOOR WORKER Carlos Lee MD LAB - BLOOD ORDERABLES Performing Organization Address City/State/ZIP Code Phon e Number [place] [address] [address] [address] [facility] [address] [address] documented in this encounter Visit Diagnoses Diagnosis Chronic abdominal pain Abdominal pain, unspecified site documented in this encounter Administered Medications Inactive Administered Medications - up to 3 most recent administrations Medication Order MAR Action Action Date Dose Rate Site diphenhydrAMINE (BENADRYL) Given 05/14/2014 2:06 PM SIDE DOOR WORKER 50 mg injection 50 mg 50 mg, Intravenous, ONCE, On 05/14/14 at 1352, For 1 dose ketorolac (TORADOL) injection 30 mg Given 05/14/2014 2:06 PM SIDE DOOR WORKER 30 mg 30 mg, Intravenous, ONCE, On [...] Recently Administered Medications Times are shown in SIDE DOOR WORKER. Scheduled Medication Order 05/12/2014 05/13/2014 05/14/2014 diphenhydrAMINE [...] extravasation. documented in this encounter Care Teams Stain Sprayer Relationship Specialty Start Date End Date Jamin Silva MD PCP - General Family Medicine - Sports 06/01/13 Medicine documented as of this encounter
--- OUTSIDE RECORDS SUMMARY | 2022-03-15 12:29 | XMS_ITS | Encounter Summary ---
:1980 Author Organization [place] Address [address] [place] [address] Care Team Providers Name Role Phone Ratna Mackey MD Primary Care Provider Reason for Visit Reason Comments Dizziness Encounter Details Date Type Department Care Team Description 09/22/2015 [facility] Shon Patel Internal hemorrhoid, bleeding; [facility] Emergency MD [facility] Dept [facility] [address] [place], [place] [address] [place] [id number] [place] [address] [place] [address] (Wo rk) Social History Tobacco [...] canal. This can be due to: ?? [id number] [employer]. [address] [place] [address], [place] [address]. All rights reserved. This information is not [...] peggy. These are available at most drugstores. [id number] hemorrhoid ointments and petroleum jelly can also [...] plenty of water when you exercise. ?? [phone] [employer]. [address] [place] [address]. All rights reserved. This information is not [...] Place rectally At Bedtime Andres Miller 09/22/2015 [facility] EMERGENCY DEPARTMENT I, Andres Miller, am serving [...] athologist Signature Sodium 140 133 - 144 [place] mmol/L [facility] Potassium 3.8 3.4 - 5.3 [place] mmol/L [facility] Chloride 108 94 - 109 [place] mmol/L [facility] Carbon Dioxide 25 20 - 32 [place] mmol/L [facility] Anion Gap 7 3 - 14 [place] mmol/L [facility] Glucose 115 (H) 70 - 99 [place] mg/dL [facility] Urea Nitrogen 10 7 - 30 [place] mg/dL [facility] Creatinine 0.92 0.52 - [place] 1.04 mg/dL [facility] GFR Estimate 70 >60 [place] mL/min/1.[address] Comment: Non GFR Calc GFR Estimate If Black 84 >60 mL/min/1.7m2 F [facility] Comment: GFR Calc Calcium 9.1 8.5 - 10.1 mg/dL [facility] Specimen Anatomical Collection Method Collection Time Receive d Time (Source) Location / / Volume Laterality Blood specimen 09/22/2015 1:40 PM 016 1:43 (specimen) CDT PM CDT Shon Patel MD LAB - BLOOD ORDERABLES Performing Organization Address City/State/ZIP Code Phon e Number [place] [address] [address] [address] [facility] [address] [phone] CBC with platelets differential (09/22/2015 1:40 PM CDT) Patholo gist Method Time Signature WBC 7.3 4.0 - [place] 11.0 [facility] 10e9/L [facility] RBC Count 4.99 3.8 - 5.2 [place] 10e12/L [facility] Hemoglobin 15.1 11.7 - [place] 15.7 g/dL [facility] Hematocrit 42.7 35.0 - [place] 47.0 % [facility] MCV 86 78 - 100 [facility] MCH 30.3 26.5 - [place] 33.0 pg [facility] MCHC 35.4 31.5 - [place] 36.5 g/dL [facility] RDW 12.7 10.0 - [place] 15.0 % [facility] Platelet Count 254 150 - [address] Diff Method Automated [facility] % Neutrophils 71.6 % [facility] % Lymphocytes 19.4 % [facility] % Monocytes 7.3 % [facility] % Eosinophils 1.0 % [facility] % Basophils 0.4 % [facility] % Immature 0.3 % [place] Granulocytes [facility] Nucleated RBCs 0 0 /100 [facility] Absolute 5.2 1.6 - 8.3 [place] Neutrophil [address] [place] [address] Absolute 1.4 0.8 - 5.3 [place] Lymphocytes [address] [place] [address] Absolute 0.5 0.0 - 1.3 [place] Monocytes [address] [place] [address] Absolute 0.1 0.0 - 0.7 [place] Eosinophils [address] [place] [address] Absolute 0.0 0.0 - 0.2 [place] Basophils [address] [place] [address] Abs Immature 0.0 0 - 0.4 [place] Granulocytes [address] [place] [address] Absolute 0.0 [place] Nucleated RBC [facility] Specimen Anatomical Collection Method Collection Time Receive d Time (Source) Location / / Volume Laterality Blood specimen 09/22/2015 1:40 PM 016 1:43 (specimen) CDT PM CDT Shon Patel MD LAB - BLOOD ORDERABLES Performing Organization Address City/State/ZIP Code Phon e Number M [facility] [address] [address] [facility] [address] [phone] documented in this encounter Visit Diagnoses Diagnosis [...] override documented in this encounter Care Teams Rig Hand Relationship Specialty Start Date End Date Ratna Mackey MD PCP - General Family Practice 03/07/15 12/29/20 [facility] [address] [place] [address] documented as of this encounter
--- OUTSIDE RECORDS SUMMARY | 2022-03-15 12:29 | XMS_ITS | Encounter Summary ---
:1980 Author Organization [place] Address [address] [place] [address] Care Team Providers Name Role Phone [facility] Primary Care Provide r Encounter Details Date [...] on filedocumented in this encounter Care Teams Correctional Probation Officer Relationship Specialty Start Date End Date [facility] PCP - General 12/30/201999 [facility] [place] [address] documented as of this encounter
--- OUTSIDE RECORDS SUMMARY | 2022-03-15 12:29 | XMS_ITS | Encounter Summary ---
:1980 Author Organization [place] Address [address] [place] [address] Care Team Providers Name Role Phone Jamin Silva MD Primary Care Provider Reason for Visit Reason Comments Abdominal Pain LLQ pain since january Encounter Details Date Type Department Care Team Description 02/26/2014 Emergency [facility] Robbie Nelson Abdom inal pain, left [facility] ralph Johnson MD lower quadrant [address] [facility] (Primary Dx) [facility] [id number] [phone] [address] [place], [place] [id number] (Wo rk) Social History Tobacco Use Types Packs/Day Years Used Date Smoking Tobacco: Every Day Cigarettes 0.3 Alcohol Use Standard Drinks/Week Comments No 0 (1 standard drink = 0.6 oz pure alcoho l) Sex Assigned at Date Recorded Not on file documented as of this encounter Last Filed Vital Signs Vital Sign Reading Time Taken Comments Blood Pressure 102/71 02/26/2014 4:00 PM ROUTE SALES ASSOCIATE Pulse 77 02/26/2014 2:41 PM ROUTE SALES ASSOCIATE Temperature 36.5 ??C (97.7 ??F) 02/26/2014 2:41 PM ROUTE SALES ASSOCIATE Respiratory Rate 16 02/26/2014 2:41 PM ROUTE SALES ASSOCIATE Oxygen Saturation 96% 02/26/2014 4:05 PM ROUTE SALES ASSOCIATE Inhaled Oxygen Concentration - - Weight 76.7 kg (169 lb) 02/26/2014 2:41 PM ROUTE SALES ASSOCIATE Height - - Body Mass Index - - documented in this encounter Discharge Instructions Discharge InstructionsRobbie Nelson MD - 02/26/2014 4:38 PM ROUTE SALES ASSOCIATE Discharge Instructions Abdominal Pain Abdominal pain can [...] directed by your doctor today. Before using gykf-ekf-mjruwyz medications, ask your doctor and make sure [...] contain Tylenol?? (acetaminophen), including Vicodin??, Tylenol #3??, Robins??, Lortab??, and Percocet??. You should not take [...] there is anything that worries you. E SALES ASSOCIATE AttachmentsThe following attachments cannot be sent through Care Everywhere. PELVIC PAIN, UNKNOWN CAUSE (HEBREW)documented in this encounter Medications at Time of [...] and after seeing her primary provider at [facility] in [place]. She reports, however, that her aching left [...] baso 0.3%, imm gran 0.1%), hgb 13.4, [id number] CMP: creat 0.82, o/w wnl Lipase: 114 [...] be discharged home to follow up with [employer] perdischarge instructions. Indications for return to the [...] February 12, and February 18. Please see [facility] for details of that. She has [...] I gave her a referral to our occupational therapy assist gynecology provider. She will follow up. Diagnosis: ICD-9-CM 1. Abdominal pain, left lower quadrant 789.04 I, Robbie Chowdhury, am serving as a scribe at 2:52 PM on 02/26/2014 to document services personally performed by Robbie Nelson MD, based on my observations and the provider's statements to me. Robbie Nelson MD 02/28/14 1030 E SALES ASSOCIATE Abril Stack RN - 02/26/2014 2:40 PM CST Nausea. States has been seen for same in clinic and ED E SALES ASSOCIATE documented in this encounter Plan of Treatment Not on filedocumented as of this encounter Procedures Procedure Name Priority Date/Time Associated Comments Diagnosis US PELVIS COMPLETE W STAT 02/26/2014 3:53 PM R esults for this TRANSVAGINAL AND ROUTE SALES ASSOCIATE procedure a re in DOPPLER LIMITED the results section. CBC WITH PLATELETS & STAT 02/26/2014 3:24 PM R esults for this DIFFERENTIAL ROUTE SALES ASSOCIATE procedure are i n the results section. LIPASE STAT 02/26/2014 3:24 PM Results f or this ROUTE SALES ASSOCIATE procedure are i n the results section. LACTIC ACID STAT 02/26/2014 3:24 PM Results f or this ROUTE SALES ASSOCIATE procedure are i n the results section. COMPREHENSIVE STAT 02/26/2014 3:24 PM Results for this METABOLIC PANEL ROUTE SALES ASSOCIATE procedure ar e in the results section. HCG QUALITATIVE URINE STAT 02/26/2014 3:05 PM Results for this ROUTE SALES ASSOCIATE procedure are i n the results section. ROUTINE UA WITH STAT 02/26/2014 3:05 PM Result s for this MICROSCOPIC ROUTE SALES ASSOCIATE procedure are i n the results section. documented in this encounter Results US Pelvic Complete w Transvaginal & Abd/Pel Duplex Limited (02/26/2014 3:53 PM ROUTE SALES ASSOCIATE) Anatomical Region Laterality Modality Abdomen/Pelvis Ultrasound Specimen (Source) Anatomical Location Collection Method / Collectio n Time Received Time / Laterality Volume Impressions 02/26/2014 3:56 PM ROUTE SALES ASSOCIATE IMPRESSION: 1. No evidence for ovarian torsion. Norm al blood flow is seen in both ovaries. 2. 2 cm cyst or follicle in the left ova ry. 3. No free fluid or adnexal mass. BETSY MILLS MD Narrative 02/26/2014 3:56 PM ROUTE SALES ASSOCIATE US PELVIS COMPLETE W TRANSVAGINAL AND DOPPLER [...] mass. BETSY MILLS MD Robbie Nelson MD [facility] US ORDERABLES Lipase (02/26/2014 3:24 PM ROUTE SALES ASSOCIATE) P athologist Signature Lipase 114 73 - 393 [facility] U/L [facility] Comment: Effective 11/10/2013, the reference range for this assay has changed to reflect new instrumentation/methodology. Specimen Anatomical Collection Method Collection Time Receive d Time (Source) Location / / Volume Laterality Blood specimen 02/26/2014 3:24 PM 014 3:40 (specimen) ROUTE SALES ASSOCIATE PM ROUTE SALES ASSOCIATE Robbie Nelson MD LAB - BLOOD ORDERABLES Performing Organization Address [facility]/ZIP [phone] [place] [address] LAB Lactic acid (02/26/2014 3:24 PM ROUTE SALES ASSOCIATE) athologist Signature Lactic Acid 0.6 0.4 - 2.0 [place] mmol/L [facility] Specimen Anatomical Collection Method Collection Time Receive d Time (Source) Location / / Volume Laterality Blood specimen 02/26/2014 3:24 PM 014 3:40 (specimen) ROUTE SALES ASSOCIATE PM ROUTE SALES ASSOCIATE Robbie Nelson MD LAB - BLOOD ORDERABLES Performing Organization Address City/[facility]/[address] [address] [facility] Comprehensive metabolic panel (02/26/2014 3:24 PM ROUTE SALES ASSOCIATE) athologist Signature Sodium 136 133 - 144 [place] mmol/L [facility] Potassium 3.9 3.4 - 5.3 [place] mmol/L [facility] Chloride 106 94 - 109 [place] mmol/L [facility] Carbon Dioxide 26 20 - 32 [place] mmol/L [facility] Anion Gap 4 3 - 14 [place] mmol/L [facility] Glucose 89 70 - 99 [place] mg/dL [facility] Comment: Effective 11/10/2013, the reference range for this assay has changed to reflect new instrumentation/methodology. Urea Nitrogen 13 7 - 30 mg/dL [facility] Comment: Effective 11/10/2013, the reference range for this assay has changed to reflect new instrumentation/methodology. Creatinine 0.82 0.52 - 1.04 mg/dL [facility] GFR Estimate 81 >60 mL/min/1.7m2 [facility] Comment: Non GFR Calc GFR Estimate If Black >90 >60 mL/min/1.7m2 F [facility] GFR Calc [facility] LAB Calcium 8.6 8.5 - 10.1 mg/dL [facility] Comment: Effective 11/10/2013, the reference range for this assay has changed to reflect new instrumentation/methodology. Bilirubin Total 0.2 0.2 - 1.3 mg/dL [facility] Albumin 3.8 3.4 - 5.0 g/dL [facility] Protein Total 7.1 6.8 - 8.8 g/dL [facility] Alkaline Phosphatase 74 40 - 150 U/L [facility] ALT 27 0 - 50 U/L [facility] AST 17 0 - 45 U/L [facility] Specimen Anatomical Collection Method Collection Time Receive d Time (Source) Location / / Volume Laterality Blood specimen 02/26/2014 3:24 PM 014 3:40 (specimen) ROUTE SALES ASSOCIATE PM ROUTE SALES ASSOCIATE Robbie Nelson MD LAB - BLOOD ORDERABLES Performing Organization Address City/State/ZIP Code Phon e Number M [facility] [address] [address] [facility] CBC with platelets differential (02/26/2014 3:24 PM ROUTE SALES ASSOCIATE) [facility] gist Method Time Signature WBC 7.3 4.0 - [place] 11.0 [facility] 10e9/L [facility] RBC Count 4.57 3.8 - 5.2 [place] 10e12/L [facility] Hemoglobin 13.4 11.7 - [place] 15.7 g/dL [facility] Hematocrit 40.1 35.0 - [place] 47.0 % [facility] MCV 88 78 - 100 [place] fl [facility] MCH 29.3 26.5 - [facility] 33.0 pg [facility] MCHC 33.4 31.5 - [place] 36.5 g/dL [facility] RDW 13.1 10.0 - [place] 15.0 % [facility] Platelet Count 228 150 - 450 [place] 10e9/L [facility] Diff Method Automated [facility] % Neutrophils 72.1 % [facility] % Lymphocytes 20.4 % [facility] % Monocytes 5.9 % [facility] % Eosinophils 1.2 % [facility] % Basophils 0.3 % [facility] % Immature 0.1 % [place] Granulocytes [facility] Absolute 5.3 1.6 - 8.3 [place] Neutrophil 10e9/L [facility] Absolute 1.5 0.8 - 5.3 [place] Lymphocytes 10e9/L [facility] Absolute 0.4 0.0 - 1.3 [place] Monocytes 10e9/L [facility] Absolute 0.1 0.0 - 0.7 [place] Eosinophils 10e9/L [facility] Absolute 0.0 0.0 - 0.2 [place] Basophils [address] [place] [address] LAB Abs Immature 0.0 0 - 0.4 [place] Granulocytes [address] [place] [address] LAB Specimen Anatomical Collection Method Collection Time Receive d Time (Source) Location / / Volume Laterality Blood specimen 02/26/2014 3:24 PM 014 3:40 (specimen) ROUTE SALES ASSOCIATE PM ROUTE SALES ASSOCIATE Robbie Nelson MD LAB - BLOOD ORDERABLES Performing Organization Address City/State/ZIP [facility] Phon e Number M [facility] [address] [place], [place] [address] [facility] HCG qualitative urine (02/26/2014 3:05 PM ROUTE SALES ASSOCIATE) P athologist Signature HCG Qual Urine Negative NEG [facility] Specimen Anatomical Collection Method Collection Time Receive d Time (Source) Location / / Volume Laterality Urine specimen URINE SPECIMEN 02/26/2014 3:05 PM 02/26 3:10 (specimen) OBTAINED BY CLEAN ROUTE SALES ASSOCIATE PM ROUTE SALES ASSOCIATE CATCH PROCEDURE / Unknown Robbie Nelson MD LAB - URINE ORDERABLES Performing Organization Address City/State/[facility] Phon e Number M [facility] [address] [place], [place] [address] [facility] (ABNORMAL) UA with Microscopic (02/26/2014 3:05 PM ROUTE SALES ASSOCIATE) Patholo gist Method Time Signature Color Urine Light Yellow [facility] Appearance Urine Clear [facility] Glucose Urine Negative NEG mg/dL [facility] Bilirubin Urine Negative NEG [facility] Ketones Urine Negative NEG mg/dL [facility] Specific [place] 1.007 1.003 - [place] Urine 1.035 [facility] Blood Urine Negative NEG [facility] pH Urine 5.5 5.0 - 7.0 [place] pH [facility] Protein Albumin Negative NEG mg/dL [facility] Urobilinogen Normal 0.0 - 2.0 [place] mg/dL mg/dL [facility] Nitrite Urine Negative NEG [facility] Leukocyte Negative NEG [place] Esterase Urine [facility] Source Midstream [place] Urine [facility] WBC Urine <1 0 - 2 [facility] RBC Urine <1 0 - 2 [facility] Bacteria Urine Few (A) NEG /HPF [facility] Squamous 1 0 - 1 [place] Epithelial /HPF /HPF [facility] Mucous Urine Present (A) NEG /LPF [facility] Specimen Anatomical Collection Method Collection Time Receive d Time (Source) Location / / Volume Laterality Urine specimen URINE SPECIMEN 02/26/2014 3:05 PM 02/26 3:10 (specimen) OBTAINED BY CLEAN ROUTE SALES ASSOCIATE PM ROUTE SALES ASSOCIATE CATCH PROCEDURE / Unknown Robbie Nelson MD LAB - URINE ORDERABLES Performing Organization Address City/State/ZIP Code Phon e Number M [place] [address] [address] [facility] documented in this encounter Visit Diagnoses Diagnosis Abdominal pain, left lower quadrant - Pr imary documented in this encounter Administered Medications Inactive Administered Medications - up to 3 most recent administrations Medication Order MAR Action Action Date Dose Rate Site ketorolac (TORADOL) injection 30 mg Given 02/26/2014 3:18 PM ROUTE SALES ASSOCIATE 30 mg 30 mg, Intravenous, ONCE, On 02/26/14 at 1507, For 1 dose ondansetron (ZOFRAN) injection 4 mg Given 02/26/2014 3:18 PM ROUTE SALES ASSOCIATE 4 mg 4 mg, Intravenous, EVERY 30 MIN PRN, nausea, vomiting, Administer over 2-5 Minutes, Starting on 02/26/14 at 1506, For 3 doses, May repeat in 30 minutes as needed, up to 3 doses. oxyCODONE-acetaminophen (PERCOCET) 5-325 Given 02/26/2014 4: 55 PM ROUTE SALES ASSOCIATE 2 tablets MG per tablet 2 tablet 2 tablet, Oral, ONCE, On 02/26/14 at 1638, For 1 dose, Maximum acetaminophen dose from all sources= 75 mg/kg/day not to exceed 4 grams sodium chloride 0.9 % BOLUS New Bag 02/26/2014 3:18 PM ROUTE SALES ASSOCIATE 1,000 m Ls 1000 mL/hr 1,000 mL Intravenous, 1,000 mL, ONCE, at 1,000 mL/hr, Administer over 1 Hours, On 02/26/14 at 1507, For 1 dose documented in this encounter Active and Recently Administered Medications Times are shown in ROUTE SALES ASSOCIATE. Scheduled Medication Order 02/24/2014 02/25/2014 02/26/2014 ketorolac [...] doses. documented in this encounter Care Teams Company Pilot Relationship Specialty Start Date End Date Jamin Silva MD PCP - General Family Medicine - Sports 06/01/13 Medicine documented as of this encounter
--- OUTSIDE RECORDS SUMMARY | 2022-03-15 12:29 | XMS_ITS | Encounter Summary ---
:1980 Author Organization [facility] Address [address] [place] [address] Care Team Providers Name Role Phone Pending Sale To [facility] Primary Care Provide r Encounter Details Date [...] on filedocumented in this encounter Care Teams Merchandising Execution Manager Relationship Specialty Start Date End Date Pending Sale To [facility] PCP - General 12/30/201999 [place] [address] documented as of this encounter
--- OUTSIDE RECORDS SUMMARY | 2022-03-15 12:29 | XMS_ITS | Encounter Summary ---
:1980 Author Organization [place] [facility] Address [address] [place] [address] Care Team Providers Name Role Phone Ratna Mackey MD Primary Care Provider Reason for Visit Reason Comments Abdominal Pain Encounter Details Date Type Department Care Team Description 03/07/2015 Emergency [facility] Luis Villatoro Ch ronic pelvic pain [facility] in female [address] [facility] [place] [address] [address] [phone] [address] [place], [place] [address] (Wo rk) Social History Tobacco Use Types Packs/Day Years Used Date Smoking Tobacco: Some Days Cigarettes 0.3 Alcohol Use Standard Drinks/Week Comments No 0 (1 standard drink = 0.6 oz pure alcoho l) Sex Assigned at Date Recorded Not on file documented as of this encounter Last Filed Vital Signs Vital Sign Reading Time Taken Comments Blood Pressure 117/92 03/07/2015 3:54 PM TRAVELING ENGINEER Pulse 75 03/07/2015 3:54 PM TRAVELING ENGINEER Temperature 37.2 ??C (98.9 ??F) 03/07/2015 3:54 PM TRAVELING ENGINEER Respiratory Rate 20 03/07/2015 3:54 PM TRAVELING ENGINEER Oxygen Saturation 99% 03/07/2015 3:54 PM TRAVELING ENGINEER Inhaled Oxygen Concentration - - Weight 77.6 kg (171 lb) 03/07/2015 3:54 PM TRAVELING ENGINEER Height 167.6 cm (5' 6) 03/07/2015 3:54 PM TRAVELING ENGINEER Body Mass Index 27.6 03/07/2015 3:54 PM TRAVELING ENGINEER documented in this encounter Discharge Instructions Discharge [...] if there is anything that worries you. ELING ENGINEER documented in this encounter Medications at Time [...] and she was last seen here at [facility] one month ago at which time it [...] reviewed. I reviewed the patient's chart in [facility]. [id number] - I performed an exam of [...] observations and the provider's statements to me. [facility] Luis Villatoro MD 03/08/15 1257 ELING ENGINEER Natalia Coon RN - 03/07/2015 3:52 PM CST Lower left abdominal pain that began about 1 year ago. Nauseated but no vomiting. Ibuprofen taken at9am. Patient alert and oriented x3. Airway, breathing and circulation intact. ELING ENGINEER documented in this encounter Plan of Treatment Not on filedocumented as of this encounter Procedures Procedure Name Priority Date/Time Associated Comments Diagnosis HCG QUALITATIVE URINE STAT 03/07/2015 4:05 PM Chronic pelvi c pain Results for this TRAVELING ENGINEER in female procedure are i n the results section. ROUTINE UA WITH STAT 03/07/2015 4:05 PM Chronic pelvic pain Results for this MICROSCOPIC TRAVELING ENGINEER in female procedure are i n the results section. documented in this encounter Results HCG qualitative urine (03/07/2015 4:05 PM TRAVELING ENGINEER) P athologist Signature HCG Qual Urine Negative NEG [facility] Specimen Anatomical Collection Method Collection Time Receive d Time (Source) Location / / Volume Laterality Urine specimen URINE SPECIMEN 03/07/2015 4:05 PM 03/07 4:14 (specimen) OBTAINED BY CLEAN TRAVELING ENGINEER PM TRAVELING ENGINEER CATCH PROCEDURE / Unknown Luis Villatoro MD LAB - URINE ORDERABLES Performing Organization Address City/State/ZIP Code Phon e Number [facility] [address] [place], [place] [address] [facility] [address] [address] [facility] [phone] (ABNORMAL) Routine UA with microscopic (03/07/2015 4:05 PM TRAVELING ENGINEER) [facility] Method Time Signature Color Urine Light Yellow [facility] Appearance Urine Clear [facility] Glucose Urine Negative NEG mg/dL [facility] Bilirubin Urine Negative NEG [facility] Ketones Urine Negative NEG mg/dL [facility] Specific [place] 1.018 1.003 - [place] Urine 1.035 [facility] Blood Urine Negative NEG [facility] pH Urine 6.0 5.0 - 7.0 [facility] Protein Albumin Negative NEG mg/dL [facility] Urobilinogen Normal 0.0 - 2.0 [place] mg/dL mg/dL [facility] Nitrite Urine Negative NEG [facility] Leukocyte Small (A) NEG [place] Esterase Urine [facility] Source Midstream [facility] WBC Urine 1 0 - 2 [place] /HPF [facility] RBC Urine 1 0 - 2 [place] /HPF [facility] Bacteria Urine Few (A) NEG /HPF [facility] Squamous 3 (H) 0 - 1 [place] Epithelial /HPF /HPF [facility] Mucous Urine Present (A) NEG /LPF [facility] Specimen Anatomical Collection Method Collection Time Receive d Time (Source) Location / / Volume Laterality Urine specimen URINE SPECIMEN 03/07/2015 4:05 PM 03/07 4:14 (specimen) OBTAINED BY CLEAN TRAVELING ENGINEER PM TRAVELING ENGINEER CATCH PROCEDURE / Unknown Luis Villatoro MD LAB - URINE ORDERABLES Performing Organization Address City/State/ZIP Code Phon e Number M [facility] [address] [place], [place] [address] [facility] [address] [address] [facility] [phone] documented in this encounter Visit Diagnoses Diagnosis Chronic pelvic pain in female Unspecified symptom associated with fema le genital organs documented in this encounter Administered Medications Inactive Administered Medications - up to 3 most recent administrations Medication Order MAR Action Action Date Dose Rate Site oxyCODONE-acetaminophen Given 03/07/2015 4:17 PM TRAVELING ENGINEER 2 tablets (PERCOCET) 5-325 MG per tablet 2 tablet 2 tablet, Oral, ONCE, On Fri03/07/15 at 1616, For 1 dose, Maximum acetaminophen dose from all sources= 75 mg/kg/day not to exceed 4 grams documented in this encounter Active and Recently Administered Medications Times are shown in TRAVELING ENGINEER. Scheduled Medication Order 03/05/2015 03/06/2015 03/07/2015 oxyCODONE-acetaminophen (PERCOCET) 5-325 MG per tablet 2 tablet (COMPLETED) 1617 (Given - Provider: Fadi Ledezma RN) 2 tablet, Oral, ONCE, Fri03/07/15 at 16 16, For 1 dose, Maximum acetaminophen dose from all sources= 75 mg/kg/day not to exceed 4 grams documented in this encounter Care Teams Robotics Technologist Relationship Specialty Start Date End Date Ratna Mackey MD PCP - General Family Practice 03/07/15 12/29/20 [facility] [address] [facility] [place] [address] documented as of this encounter
--- OUTSIDE RECORDS SUMMARY | 2022-03-15 12:29 | XMS_ITS | Encounter Summary ---
:1980 Author Organization [place] Address [address] [place] [address] Care Team Providers Name Role Phone Clinic, [facility] Primary Care Provide r Reason for Visit Reason Comments Shoulder Pain Encounter Details Date Type Department Care Team Description 12/30/[address] [facility] Quintin Houser, Jairo [place] pain of left shoulder (Primary Dx); [facility] Emergency Dep t MD Darling, initial encounter [address] [facility], [place] [address] [address] [phone] [address] [place], [place] [id number] (Wo rk) Social History Tobacco Use Types [...] follow up in about one week with [facility] for rotator cuff evaluation. AttachmentsThe following attachments cannot be sent through Care Everywhere.RICE (Bangladeshi)Shoulder Immobilizer (Bangladeshi)documented in this encounter Medications at Time of [...] for muscle relaxation. Re commended follow-up with [facility] as an outpatient for further [...] Houser MD Roach, Brian Donald, MD 12/30/20 4726 Gloria Child MD - 12/30/2020 5:09 PM [...] with shoulder immobilizer, recommend follow up with [facility] in about a week for further evaluation. Interventions: Medications ketorolac (TORADOL) injection 15 mg (15 mg Intravenous Given 12/30/201825) cyclobenzaprine (FLEXERIL) tablet 10 mg (10 mg Oral Given 12/30/201825) acetaminophen (TYLENOL) tablet 975 mg (975 mg Oral Given 12/30/202034) oxyCODONE (ROXICODONE) tablet 5 mg (5 mg Oral Given 12/30/202034) Disposition: Discharge to home with follow up at [facility]. Impression & Plan Medical Decision Making: [...] and would benefit from outpatient evaluation with [facility]. She will be discharged to [...] XR WRIST LEFT G/E 3 VIEWS LOCATION: [facility] DATE/TIME: 12/30/2020 7:48 PM INDICATION: fall with pop and wrist limi heather ROM COMPARISON: None. Procedure Note Galan, Shon Benjy, MD - 12/30/2020F ormatting of this note might be different from the original. EXAM: XR WRIST LEFT G/E 3 VIEWS LOCATION: [facility] DATE/TIME: 12/30/2020 7:48 PM INDICATION: fall with pop and wrist limi heather ROM COMPARISON: None. IMPRESSION: Normal joint spaces and alig nment. No fracture. Gloria Child MD [facility] [place] [facility]AGING ORD ERABLES [...] XR SHOULDER LEFT G/E 3 VIEWS LOCATION: [facility] DATE/TIME: 12/30/2020 7:23 PM INDICATION: fell with pop and pain with ROM COMPARISON: None. Procedure Note Shon Galan MD - 12/30/2020F ormatting of this note might be different from the original. EXAM: XR SHOULDER LEFT G/E 3 VIEWS LOCATION: [facility] DATE/TIME: 12/30/2020 7:23 PM INDICATION: fell with pop and pain with ROM COMPARISON: None. IMPRESSION: Normal joint spaces and alig nment. No fracture. Gloria Child MD [facility] [place] [facility] ORD ERABLES [...] ELBOW LEFT G/E 3 VIEWS LOCATION: [facility] DATE/TIME: 12/30/2020 7:22 PM INDICATION: Fall with limited ROM at L e lbow COMPARISON: None. Procedure Note Shon Galan MD - 12/30/2020F ormatting of this note might be different from the original. EXAM: XR ELBOW LEFT G/E 3 VIEWS LOCATION: [facility] DATE/TIME: 12/30/2020 7:22 PM INDICATION: [...] dose documented in this encounter Care Teams Sales Solutions Representative Relationship Specialty Start Date End Date [facility], [facility] PCP - General 12/30/[address] [place] [address] documented as of this encounter
--- OUTSIDE RECORDS SUMMARY | 2022-03-15 12:29 | XMS_ITS | Encounter Summary ---
:1980 Author Organization [place] Address [address] [place] [address] Care Team Providers Name Role Phone Ratna [...] 03/24/2000 12:00 AM Re sults for this AERODYNAMIC CONSULTANT procedure are i n the results section. documented in this encounter Results XR Abdomen 2 Views (03/24/2000 12:00 AM AERODYNAMIC CONSULTANT) Anatomical Region Laterality Modality Abdomen/Pelvis Other Specimen (Source) Anatomical Location Collection Method / Collectio n Time Received Time / Laterality Volume Narrative 03/24/2000 12:00 AM AERODYNAMIC CONSULTANT See Historical Hospital Medical Record f or documentation Procedure Note Provider, Historical - 09/05/2020Formatt ing of this note might be different from the original. See Historical Hospital Medical Record f or documentation Historical Provider IMG DIAGNOSTIC IMAGING ORDER BRIDGETT documented in this encounter Visit Diagnoses Not on filedocumented in this encounter Care Teams Food Science Professor Relationship Specialty Start Date End Date Ratna Mackey MD PCP - General Family Practice 03/07/15 12/29/20 [facility] [id number] [place] [address] [phone] documented as of this encounter
--- OUTSIDE RECORDS SUMMARY | 2022-03-15 12:29 | XMS_ITS | Encounter Summary ---
:1980 Author Organization [place] Address [address] [place] [address] Care Team Providers Name Role Phone Ratna Mackey MD Primary Care Provider Reason for Visit Reason Comments Constipation Encounter Details Date Type Department Care Team Description 11/13/2015 Emergency [facility] Krysta Pantoja MD Constipation, [facility] Emergency Dep t [facility] PHYSICIANS unspecified [address] JONES constipation type [place], [place] [address] [facility] [address] [place] [address] [phone] (Wo rk) Social History Tobacco Use Types [...] contain Tylenol?? (acetaminophen), including Vicodin??, Tylenol #3??, [place]??, Lortab??, and Percocet??. You should not take [...] CDT Enema completed per Kelly Burr, nursing internet technology manager with supervision. Lab currently drawing specimens, awaiting [...] WNL HCG Qualitative Urine: Negative Interventions: [address] [place] Enema 186mL Rectal Emergency Department Course: [...] and the provider's statements to me. 11/13/2015 [facility] EMERGENCY DEPARTMENT Krysta Pantoja MD 11/14/15 1226 Courtney Alfredo RN - 11/13/2015 6:42 PM [...] athologist Signature HCG Qual Urine Negative NEG [facility] Specimen Anatomical Collection Method Collection Time Receive d Time (Source) Location / / Volume Laterality Urine specimen URINE SPECIMEN 11/13/2015 8:25 PM 11/12 8:48 (specimen) OBTAINED BY CLEAN CDT PM CDT CATCH PROCEDURE / Unknown Krysta Pantoja MD LAB - URINE ORDERABLES Performing Organization Address City/State/ZIP Code Phon e Number [facility] [address] [place], [place] [address] [facility] [address] [place] [address] [phone] UA with Microscopic (11/13/2015 8:25 PM CDT) [facility] Method Time Signature Color Urine Straw [facility] Appearance Urine Slightly [place] Cloudy [facility] Glucose Urine Negative NEG mg/dL [facility] Bilirubin Urine Negative NEG [facility] Ketones Urine Negative NEG mg/dL [facility] Specific Reading 1.006 1.003 - [place] Urine 1.035 [facility] Blood Urine Negative NEG [facility] pH Urine 7.0 5.0 - 7.0 [place] pH [facility] Protein Albumin Negative NEG mg/dL [facility] Urobilinogen Normal 0.0 - 2.0 [place] mg/dL mg/dL [facility] Nitrite Urine Negative NEG [facility] Leukocyte Negative NEG [place] Esterase Urine [facility] Source Midstream [facility] WBC Urine <1 0 - 2 [facility] RBC Urine 0 0 - [address] [facility] Squamous 1 0 - 1 [facility] Specimen Anatomical Collection Method Collection Time Receive d Time (Source) Location / / Volume Laterality Urine specimen URINE SPECIMEN 11/13/2015 8:25 PM 11/12 8:48 (specimen) OBTAINED BY CLEAN CDT PM CDT CATCH PROCEDURE / Unknown Krysta Pantoja MD LAB - URINE ORDERABLES Performing Organization Address City/State/ZIP Code Phon e Number [facility] [address] [place], [place] [address] [place] [address] [address] [place] [id number], [facility] [phone] Lipase (11/13/2015 8:19 PM CDT) P athologist Signature Lipase 93 73 - 393 [facility] U/L [facility] Specimen Anatomical Collection Method Collection Time Receive d Time (Source) Location / / Volume Laterality Blood specimen 11/13/2015 8:19 PM 016 8:26 (specimen) CDT PM CDT Krysta Pantoja MD LAB - BLOOD ORDERABLES Performing Organization Address City/[facility]/ZIP [facility] Phon e Number [facility] [address] [place], [place] [address] [facility] [address] [id number] [phone], [facility] [phone] (ABNORMAL) Comprehensive metabolic panel (11/13/2015 8:19 PM CDT) Patholo gist Method Time Signature Sodium 141 133 - 144 [place] mmol/L [facility] Potassium 4.4 3.4 - 5.3 [place] mmol/L [facility] Chloride 109 94 - 109 [place] mmol/L [facility] Carbon Dioxide 27 20 - 32 [place] mmol/L [facility] Anion Gap 5 3 - 14 [place] mmol/L [facility] Glucose 123 (H) 70 - 99 [place] mg/dL [facility] Urea Nitrogen 7 7 - 30 [place] mg/dL [facility] Creatinine 0.63 0.52 - [place] 1.04 [facility] mg/dL [facility] GFR Estimate >90 >60 [place] Non GFR Calc mL/min/1. [place] [address]m2 [facility] GFR Estimate If >90 >60 [place] Black GFR Calc mL/min/1. [place] 7m2 [facility] Calcium 8.7 8.5 - [place] 10.1 [facility] mg/dL [facility] Bilirubin Total 0.3 0.2 - 1.3 [place] mg/dL [facility] Albumin 3.4 3.4 - 5.0 [place] g/dL [facility] Protein Total 6.9 6.8 - 8.8 [place] g/dL [facility] Alkaline 72 40 - 150 [place] Phosphatase U/L [facility] ALT 28 0 - 50 [place] U/L [facility] AST 17 0 - 45 [place] U/L [facility] Specimen Anatomical Collection Method Collection Time Receive d Time (Source) Location / / Volume Laterality Blood specimen 11/13/2015 8:19 PM 016 8:26 (specimen) CDT PM CDT Krysta Pantoja MD LAB - BLOOD ORDERABLES Performing Organization Address City/State/ZIP Code Phon e Number M [facility] [address] [place], [place] [address] [facility] [address] [phone] (ABNORMAL) CBC + differential (11/13/2015 8:19 PM CDT) [facility] Method Time Signature WBC 10.1 4.0 - [facility] 11.0 [facility] 10e9/L [facility] RBC Count 4.81 3.8 - 5.2 [place] 10e12/L [facility] Hemoglobin 14.1 11.7 - [place] 15.7 g/dL [facility] Hematocrit 43.2 35.0 - [place] 47.0 % [facility] MCV 90 78 - 100 [place] fl [facility] MCH 29.3 26.5 - [place] 33.0 pg [facility] MCHC 32.6 31.5 - [place] 36.5 g/dL [facility] RDW 12.9 10.0 - [place] 15.0 % [facility] Platelet Count 256 150 - [address] Diff Method Automated [place] Method [facility] % Neutrophils 83.6 % [facility] % Lymphocytes 10.8 % [facility] % Monocytes 4.6 % [facility] % Eosinophils 0.4 % [facility] % Basophils 0.2 % [facility] % Immature 0.4 % [place] Granulocytes [facility] Nucleated RBCs 0 0 /100 [facility] Absolute 8.4 (H) 1.6 - 8.3 [place] Neutrophil [address] [place] [address] Absolute 1.1 0.8 - 5.3 [place] Lymphocytes [address] [place] [address] Absolute 0.5 0.0 - 1.3 [place] Monocytes [address] [place] [address] Absolute 0.0 0.0 - 0.7 [place] Eosinophils [address] [place] [address] Absolute 0.0 0.0 - 0.2 [place] Basophils [address] [place] [address] Abs Immature 0.0 0 - 0.4 [place] Granulocytes [address] [place] [address] Absolute 0.0 [place] Nucleated RBC [facility] Specimen Anatomical Collection Method Collection Time Receive d Time (Source) Location / / Volume Laterality Blood specimen 11/13/2015 8:19 PM 016 8:26 (specimen) CDT PM CDT Krysta Pantoja MD LAB - BLOOD ORDERABLES Performing Organization Address City/State/ZIP Code Phon e Number M [facility] [address] [place] [address] [facility] [address] [place], [place] [address], [facility] [phone] Abdomen XR, 2 vw, flat and upright [...] contamination. documented in this encounter Care Teams Weigh Boss Relationship Specialty Start Date End Date Ratna Mackey MD PCP - General Family Practice 03/07/15 12/29/20 [facility] [address] [facility] [place] [address] documented as of this encounter
--- OUTSIDE RECORDS SUMMARY | 2022-03-15 12:29 | XMS_ITS | Encounter Summary ---
:1980 Author Organization [place] Address [address] [place] [id number] Care Team Providers Name Role Phone Jamin Silva MD Primary Care Provider Reason for Visit Reason Comments Abdominal Pain Encounter Details Date Type Department Care Team Description 03/30/2014 Emergency [facility] Courtney Hodges MD Left sided abdominal pain; [facility] Emergency Dep t EMERGENCY PHYSICIANS Other and unspecified ovaria n cyst [address] [place], [place] [address] [facility] [id number] [place], [place] [phone] (Wo rk) Social History Tobacco Use Types Packs/Day Years Used Date Smoking Tobacco: Every Day Cigarettes 0.3 Alcohol Use Standard Drinks/Week Comments No 0 (1 standard drink = 0.6 oz pure alcoho l) Sex Assigned at Date Recorded Not on file documented as of this encounter Last Filed Vital Signs Vital Sign Reading Time Taken Comments Blood Pressure 131/90 03/30/2014 4:32 PM INSPECTOR MULTIFOCAL LENS Pulse 100 03/30/2014 12:45 PM INSPECTOR MULTIFOCAL LENS Temperature 36.5 ??C (97.7 ??F) 03/30/2014 12:45 PM INSPECTOR MULTIFOCAL LENS Respiratory Rate 16 03/30/2014 2:20 PM INSPECTOR MULTIFOCAL LENS Oxygen Saturation 97% 03/30/2014 4:32 PM INSPECTOR MULTIFOCAL LENS Inhaled Oxygen Concentration - - Weight - [...] contain Tylenol?? (acetaminophen), including Vicodin??, Tylenol #3??, [place]??, Lortab??, and Percocet??. You should not take [...] directed by your doctor today. Before using [id number] medications, ask your doctor and make sure [...] contain Tylenol?? (acetaminophen), including Vicodin??, Tylenol #3??, [place]??, Lortab??, and Percocet??. You should not take [...] if there is anything that worries you. ECTOR MULTIFOCAL LENS documented in this encounter Medications at Time [...] to bathroom. Pt tolerated well. UA obtained ECTOR MULTIFOCAL LENS Courtney Hodges MD - 03/30/2014 2:23 PM [...] provider's statements to me. Buffy Curtis 03/30/2014 [facility] EMERGENCY DEPARTMENT Courtney Hodges MD 03/31/14 0037 ECTOR MULTIFOCAL LENS Meena Walker RN - 03/30/2014 12:46 PM CST Left lower abd pain- history of ovarian cyst. ABC Intact alert and no distress. ECTOR MULTIFOCAL LENS documented in this encounter Plan of Treatment Not on filedocumented as of this encounter Procedures Procedure Name Priority Date/Time Associated Comments Diagnosis US PELVIS COMPLETE W STAT 03/30/2014 3:51 PM R esults for this TRANSVAGINAL AND INSPECTOR MULTIFOCAL LENS procedure a re in DOPPLER LIMITED the results section. CBC WITH PLATELETS & STAT 03/30/2014 2:40 PM R esults for this DIFFERENTIAL INSPECTOR MULTIFOCAL LENS procedure are i n the results section. LIPASE STAT 03/30/2014 2:40 PM Results f or this INSPECTOR MULTIFOCAL LENS procedure are i n the results section. COMPREHENSIVE STAT 03/30/2014 2:40 PM Results for this METABOLIC PANEL INSPECTOR MULTIFOCAL LENS procedure ar e in the results section. HCG QUALITATIVE URINE STAT 03/30/2014 2:38 PM Results for this INSPECTOR MULTIFOCAL LENS procedure are i n the results section. ROUTINE UA WITH STAT 03/30/2014 2:38 PM Result s for this MICROSCOPIC INSPECTOR MULTIFOCAL LENS procedure are i n the results section. documented in this encounter Results US Pelvic Complete w Transvaginal & Abd/Pel Duplex Limited (03/30/2014 3:51 PM INSPECTOR MULTIFOCAL LENS) Anatomical Region Laterality Modality Abdomen/Pelvis Ultrasound Specimen (Source) Anatomical Location Collection Method / Collectio n Time Received Time / Laterality Volume Narrative 03/30/2014 3:58 PM INSPECTOR MULTIFOCAL LENS PELVIC ULTRASOUND 03/30/2014 3:51 PM HISTORY: Pelvic [...] ovaries. DWIGHT RAZO MD Courtney Hodges MD [facility] US ORDERABLES Lipase (03/30/2014 2:40 PM INSPECTOR MULTIFOCAL LENS) athologist Signature Lipase 110 73 - 393 [facility] U/L [facility] Comment: Effective 11/10/2013, the reference range for this assay has changed to reflect new instrumentation/methodology. Specimen Anatomical Collection Method Collection Time Receive d Time (Source) Location / / Volume Laterality Blood specimen 03/30/2014 2:40 PM 014 2:56 (specimen) INSPECTOR MULTIFOCAL LENS PM INSPECTOR MULTIFOCAL LENS Courtney Hodges MD LAB - BLOOD ORDERABLES Performing Organization Address City/State/ZIP Code Phon e Number M [facility] [address] [address] HOSPITAL [facility] Comprehensive metabolic panel (03/30/2014 2:40 PM INSPECTOR MULTIFOCAL LENS) athologist Signature Sodium 135 133 - 144 [place] mmol/L [facility] Potassium 4.0 3.4 - 5.3 [place] mmol/L [facility] Chloride 105 94 - 109 [place] mmol/L [facility] Carbon Dioxide 26 20 - 32 [place] mmol/L [facility] Anion Gap 4 3 - 14 [place] mmol/L [facility] Glucose 97 70 - 99 [place] mg/dL [facility] Comment: Effective 11/10/2013, the reference range for this assay has changed to reflect new instrumentation/methodology. Urea Nitrogen 17 7 - 30 mg/dL [facility] Comment: Effective 11/10/2013, the reference range for this assay has changed to reflect new instrumentation/methodology. Creatinine 0.77 0.52 - 1.04 mg/dL [facility] GFR Estimate 87 >60 mL/min/1.7m2 [facility] Comment: Non GFR Calc GFR Estimate If Black >90 >60 mL/min/1.7m2 [facility] GFR Calc [facility] LAB Calcium 8.6 8.5 - 10.1 mg/dL [facility] Comment: Effective 11/10/2013, the reference range for this assay has changed to reflect new instrumentation/methodology. Bilirubin Total 0.3 0.2 - 1.3 mg/dL [facility] Albumin 3.8 3.4 - 5.0 g/dL [facility] Protein Total 7.1 6.8 - 8.8 g/dL [facility] Alkaline Phosphatase 80 40 - 150 U/L [facility] ALT 34 0 - 50 U/L [facility] AST 23 0 - 45 U/L [facility] Specimen Anatomical Collection Method Collection Time Receive d Time (Source) Location / / Volume Laterality Blood specimen 03/30/2014 2:40 PM 014 2:56 (specimen) INSPECTOR MULTIFOCAL LENS PM INSPECTOR MULTIFOCAL LENS Courtney Hodges MD LAB - BLOOD ORDERABLES Performing Organization Address City/State/ZIP Code Phon e Number M [facility] [address] [place], [place] [address] [facility] CBC with platelets differential (03/30/2014 2:40 PM INSPECTOR MULTIFOCAL LENS) [facility] gist Method Time Signature WBC 8.7 4.0 - [place] 11.0 [facility] 10e9/L HOSPITAL LAB RBC Count 4.70 3.8 - 5.2 [place] 10e12/L [facility] Hemoglobin 14.1 11.7 - [place] 15.7 g/dL [facility] Hematocrit 41.0 35.0 - [place] 47.0 % [facility] MCV 87 78 - 100 [place] fl [facility] MCH 30.0 26.5 - [place] 33.0 pg [facility] MCHC 34.4 31.5 - [place] 36.5 g/dL [facility] RDW 13.1 10.0 - [place] 15.0 % [facility] Platelet Count 233 150 - 450 [place] 10e9[facility] Diff Method Automated [facility] LAB % Neutrophils 68.9 % [facility] % Lymphocytes 23.0 % [facility] % Monocytes 6.6 % [facility] % Eosinophils 1.2 % [facility] % Basophils 0.1 % [facility] % Immature 0.2 % [place] Granulocytes [facility] Absolute 6.0 1.6 - 8.3 [place] Neutrophil 10e9/L [facility] Absolute 2.0 0.8 - 5.3 [place] Lymphocytes 109[facility] Absolute 0.6 0.0 - 1.3 [place] Monocytes [facility] Absolute 0.1 0.0 - 0.7 [place] Eosinophils [facility] Absolute 0.0 0.0 - 0.2 [place] Basophils [address] LAB Abs Immature 0.0 0 - 0.4 [place] Granulocytes [address] [place] [address] LAB Specimen Anatomical Collection Method Collection Time Receive d Time (Source) Location / / Volume Laterality Blood specimen 03/30/2014 2:40 PM 014 2:56 (specimen) INSPECTOR MULTIFOCAL LENS PM INSPECTOR MULTIFOCAL LENS Courtney Hodges MD LAB - BLOOD ORDERABLES Performing Organization Address City/State/ZIP Code Phon e Number M [facility] [address] [place], [place] [address] [facility] HCG qualitative urine (03/30/2014 2:38 PM INSPECTOR MULTIFOCAL LENS) athologist Signature HCG Qual Urine Negative NEG [facility] Specimen Anatomical Collection Method Collection Time Receive d Time (Source) Location / / Volume Laterality Urine specimen 03/30/2014 2:38 PM 014 2:55 (specimen) INSPECTOR MULTIFOCAL LENS PM INSPECTOR MULTIFOCAL LENS Courtney Hodges MD LAB - URINE ORDERABLES Performing Organization Address [facility]/ZIP [facility] Phon e Number M [facility] [address] [place], [place] [address] [facility] (ABNORMAL) UA with Microscopic (03/30/2014 2:38 PM INSPECTOR MULTIFOCAL LENS) [facility] Method Time Signature Color Urine Yellow [facility] Appearance Urine Clear [facility] Glucose Urine Negative NEG mg/dL [facility] Bilirubin Urine Negative NEG [facility] Ketones Urine Negative NEG mg/dL [facility] Specific Muse 1.016 1.003 - [place] Urine 1.035 [facility] Blood Urine Negative NEG [facility] pH Urine 5.5 5.0 - 7.0 [place] pH [facility] Protein Albumin Negative NEG mg/dL [facility] Urobilinogen Normal 0.0 - 2.0 [place] mg/dL mg/dL [facility] Nitrite Urine Negative NEG [facility] Leukocyte Negative NEG [place] Esterase Urine [facility] Source Midstream [facility] LAB WBC Urine 0 0 - 2 [place] /HPF [facility] RBC Urine 1 0 - 2 [place] /HPF [facility] Squamous <1 0 - 1 [place] Epithelial /HPF /HPF [facility] LAB Mucous Urine Present (A) NEG /LPF [facility] Specimen Anatomical Collection Method Collection Time Receive d Time (Source) Location / / Volume Laterality Urine specimen 03/30/2014 2:38 PM 014 2:55 (specimen) INSPECTOR MULTIFOCAL LENS PM INSPECTOR MULTIFOCAL LENS Courtney Hodges MD LAB - URINE ORDERABLES Performing Organization Address [facility] Phon e Number M [place] [address] [address] [place], [place] [address] [facility] documented in this encounter Visit Diagnoses Diagnosis Left sided abdominal pain Abdominal pain, unspecified site Other and unspecified ovarian cyst documented in this encounter Administered Medications Inactive Administered Medications - up to 3 most recent administrations Medication Order MAR Action Action Date Dose Rate Site ketorolac (TORADOL) injection 30 mg Given 03/30/2014 2:55 PM INSPECTOR MULTIFOCAL LENS 30 mg 30 mg, Intravenous, ONCE, On Fri03/30/14 at 1427, For 1 dose, Do not give within 6 hours of Ibuprofen. ondansetron (ZOFRAN) injection 4 mg Given 03/30/2014 2:54 PM INSPECTOR MULTIFOCAL LENS 4 mg 4 mg, Intravenous, EVERY 30 MIN PRN, nausea, vomiting, Administer over 2-5 Minutes, Starting on Fri03/30/14 at 1426, For 3 doses, May repeat in 30 minutes as needed, up to 3 doses. sodium chloride 0.9 % BOLUS New Bag 03/30/2014 2:48 PM INSPECTOR MULTIFOCAL LENS 1,000 m Ls 1000 mL/hr 1,000 mL Intravenous, 1,000 mL, ONCE, at 1,000 mL/hr, Administer over 1 Hours, On Fri03/30/14 at 1427, For 1 dose documented in this encounter Active and Recently Administered Medications Times are shown in INSPECTOR MULTIFOCAL LENS. Scheduled Medication Order 03/28/2014 03/29/2014 03/30/2014 ketorolac [...] doses. documented in this encounter Care Teams Solder Making Supervisor Relationship Specialty Start Date End Date Jamin Silva MD PCP - General Family Medicine - Sports 06/01/13 Medicine documented as of this encounter
--- OUTSIDE RECORDS SUMMARY | 2022-03-15 12:29 | XMS_ITS | Encounter Summary ---
:1980 Author Organization [facility] Address [address] [place] [address] Care Team Providers Name Role Phone Jamin Silva MD Primary Care Provider Reason for Visit Reason Comments Abdominal Pain Encounter Details Date Type Department Care Team Description 06/07/2014 Emergency [facility] Quintin Benjamin Chronic pelvic pain in [facility] Emergency Dep ralph Nova MD [facility] [address] [facility] [address] [address] [facility] [phone] [place], [place] [address] (Wo rk) Social History [...] Comments Blood Pressure 134/81 06/07/2014 5:08 PM PULP SCREEN OPERATOR Pulse 81 06/07/2014 5:08 PM PULP SCREEN OPERATOR Temperature 36.9 ??C (98.5 ??F) 06/07/2014 2:54 PM PULP SCREEN OPERATOR Respiratory Rate 16 06/07/2014 5:08 PM PULP SCREEN OPERATOR Oxygen Saturation 99% 06/07/2014 5:08 PM PULP SCREEN OPERATOR Inhaled Oxygen Concentration - - Weight - - Height - - Body Mass Index - - documented in this encounter Discharge Instructions Discharge InstructionsQuintin Castro MD - 06/07/2014 4:56 PM PULP SCREEN OPERATOR Chronic Pain Resources *Many of the listed clinics will need a physician referral and medical records sent prior to making an appointment. Insuranceproviders often need to be called for acceptance. Clinic Location/Contact Information/Hours Information [facility] [address] [place], [place] [phone] Sub acute and chronic pain - interventional pain medicine available [facility] Twelfth Floor [address] [place] [address] M-TH: 7:30 am - 5:00 pm F: 7:30 am - 4:00 pm Sub acute and chronic pain - interventional pain medicine available [facility] Pain [facility] Medical Pain Specialist Dr. Stephan Bojorquez [address], [address] [place], [place] [phone] M-F: 8:00 am - 5:30 pm Acute and chronic pain management including medication management. [facility] Chronic Pain Dr. Valdo Fernandez [address] [place], [place] [address] M-F: 7:00 am - 4:30 pm Inpatient residential chronic pain program and outpatient clinic, focus on rehabilitative pain management. [facility] [address] [facility], [address] [place], [place] [phone] M-F: 8:00 am - 4:00 pm Specializing in interventional pain management including epidural injections and medication management. [facility] [address] [place], [place] [phone] M-TH: 8:00 am - 9:00 pm F: 8:00 am - 4:30 pm Integrative medicine services including massage therapy, reflexology, mind/bodytherapy, guided imagery, acupuncture, exercises physiology, healing development coach, and integrative nutrition. [facility] [address], [address] [place] [address] *Other [facility] Locations Available M-F: Depends on clinic Chronic, cancer and spinal pain syndromes - focus on interventions, rehabilitation, alternative medicine and behavioral health. Offers an outpatient four week chronic pain program, four hours daily, Friday through Friday. [facility] [address] [facility], [address] [place] [address] M-F: 8:00 am - 5:00 pm Specializing [...] if there is anything that worries you. SCREEN OPERATOR documented in this encounter Medications at [...] for alcohol use. OB: Dr. Guardado at [facility] Review of Systems Constitutional: [...] ibuprofen and percocet. On review of the [facility] literature, patient was recently given 15 percocet [...] provider's statements to me. Yissel Rodgers 06/07/2014 [facility] EMERGENCY DEPARTMENT Quintin Castro MD 06/13/14 0119 SCREEN OPERATOR Raegan Llamas, RN - 06/07/2014 2:54 PM CST Abdomen pain since January of 2014. Seen by her OB yesterday and told she has endometriosis. Pain isworse today. SCREEN OPERATOR documented in this encounter Plan of Treatment Not on filedocumented as of this encounter Procedures Procedure Name Priority Date/Time Associated Comments Diagnosis HCG QUALITATIVE URINE STAT 06/07/2014 3:29 PM Results for this PULP SCREEN OPERATOR procedure are i n the results section. ROUTINE UA WITH STAT 06/07/2014 3:29 PM Result s for this MICROSCOPIC REFLEX TO PULP SCREEN OPERATOR proced ure are in CULTURE the results section. documented in this encounter Results HCG qualitative urine (06/07/2014 3:29 PM PULP SCREEN OPERATOR) athologist Signature HCG Qual Urine Negative NEG [facility] Specimen Anatomical Collection Method Collection Time Receive d Time (Source) Location / / Volume Laterality Urine specimen URINE SPECIMEN 06/07/2014 3:29 PM 06/07 4:24 (specimen) OBTAINED BY CLEAN PULP SCREEN OPERATOR PM PULP SCREEN OPERATOR CATCH PROCEDURE / Unknown Quintin Castro MD LAB - URINE ORDERABLES Performing Organization Address City/State/ZIP Code Phon e Number M [facility] [address] [phone] [facility] [address] [place], [place] [address] UA with microscopic reflex to culture (06/07/2014 3:29 PM PULP SCREEN OPERATOR) [facility] Method Time Signature Color Urine Straw [facility] Appearance Urine Clear [facility] Glucose Urine Negative NEG mg/dL [facility] Bilirubin Urine Negative NEG [facility] Ketones Urine Negative NEG mg/dL [facility] Specific [place] 1.007 1.003 - [place] Urine 1.035 [facility] Blood Urine Negative NEG [facility] pH Urine 5.0 5.0 - 7.0 [place] pH [facility] Protein Albumin Negative NEG mg/dL [facility] Urobilinogen Normal 0.0 - 2.0 [place] mg/dL mg/dL [facility] Nitrite Urine Negative NEG [facility] Leukocyte Negative NEG [place] Esterase Urine [facility] Source Midstream [facility] WBC Urine <1 0 - 2 [place] /[facility] RBC Urine <1 0 - 2 [place] /[facility] Squamous <1 0 - 1 [place] Epithelial /HPF /HPF [facility] Specimen Anatomical Collection Method Collection Time Receive d Time (Source) Location / / Volume Laterality Urine specimen URINE SPECIMEN 06/07/2014 3:29 PM 06/07 4:24 (specimen) OBTAINED BY CLEAN PULP SCREEN OPERATOR PM PULP SCREEN OPERATOR CATCH PROCEDURE / Unknown Quintin Castro MD LAB - URINE ORDERABLES Performing Organization Address City/State/ZIP Code Phon e Number M [place] [address] [address] [place] [phone] documented in this encounter Visit Diagnoses Diagnosis Chronic pelvic pain in female Unspecified symptom associated with fema le genital organs documented in this encounter Administered Medications Inactive Administered Medications - up to 3 most recent administrations Medication Order MAR Action Action Date Dose Rate Site ibuprofen (ADVIL,MOTRIN) tablet Given 06/07/2014 4:13 PM PULP SCREEN OPERATOR 600 mg 600 mg 600 mg, Oral, ONCE, On Fri06/07/14 at 1611, For 1 dose oxyCODONE-acetaminophen (PERCOCET) 5-325 MG Given 05/16 4:13 PM PULP SCREEN OPERATOR 1 tablet per tablet 1 tablet 1 tablet, Oral, ONCE, On Fri06/07/14 at 1611, For 1 dose, Maximum acetaminophen dose from all sources= 75 mg/kg/day not to exceed 4 grams documented in this encounter Active and Recently Administered Medications Times are shown in PULP SCREEN OPERATOR. Scheduled Medication Order 06/05/2014 06/06/2014 06/07/2014 ibuprofen [...] grams documented in this encounter Care Teams Senior Benefits Analyst Relationship Specialty Start Date End Date Jamin Silva MD PCP - General Family Medicine - Sports 06/01/13 Medicine documented as of this encounter
--- OUTSIDE RECORDS SUMMARY | 2022-03-15 12:29 | XMS_ITS | Encounter Summary ---
:1980 Author Organization [place] Address [address] [place] [address] Care Team Providers Name Role Phone Jamin Silva MD Primary Care Provider Reason for Visit Reason Comments Abdominal Pain Encounter Details Date Type Department Care Team Description 02/01/2015 Emergency [facility] Roberto Carlos Escobedo C hronic abdominal pain; [facility] Emergency Dep t PID (acute pelvic inflammatory disease); [address] [facility]ANS Bacterial vaginosis [facility] [id number] 54[address] [facility] [phone] [place], [place] [address] (Wo rk) Social History [...] directed by your doctor today. Before using [id number] medications, ask your doctor and make sure [...] sent through Care Everywhere. 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 02/01/2015 [facility] EMERGENCY DEPARTMENT Roberto Carlos Escobedo MD 02/01/15 [...] athologist Signature HCG Qual Urine Negative NEG [facility] Specimen Anatomical Collection Method Collection Time Receive d Time (Source) Location / / Volume Laterality Urine specimen URINE SPECIMEN 02/01/2015 12:15 015 (specimen) OBTAINED BY CLEAN PM CDT 12:27 PM C DT CATCH PROCEDURE / Unknown Roberto Carlos Escobedo MD LAB - URINE ORDERABLES Performing Organization Address City/[facility]/ZIP [facility] Phon e Number M [facility] [address] [place], [place] [address] [facility] [address] [place] [address] [address] [phone] (ABNORMAL) Routine UA with microscopic (02/01/2015 12:15 PM CDT) [facility] Method Time Signature Color Urine Light Yellow [facility] Appearance Urine Clear [facility] Glucose Urine Negative NEG mg/dL [facility] Bilirubin Urine Negative NEG [facility] Ketones Urine Negative NEG mg/dL [facility] Specific Lena 1.016 1.003 - [place] Urine 1.035 [facility] Blood Urine Negative NEG [facility] pH Urine 6.0 5.0 - 7.0 [place] pH [facility] Protein Albumin Negative NEG mg/dL [facility] Urobilinogen Normal 0.0 - 2.0 [place] mg/dL mg/dL [facility] Nitrite Urine Negative NEG [facility] Leukocyte Negative NEG [place] Esterase Urine [facility] Source Midstream [facility] WBC Urine 0 0 - 2 [facility] /HPF [facility] RBC Urine 1 0 - 2 [facility] /HPF [facility] Squamous 1 0 - 1 [place] Epithelial /HPF /HPF [facility] Mucous Urine Present (A) NEG /LPF [facility] Specimen Anatomical Collection Method Collection Time Receive d Time (Source) Location / / Volume Laterality Urine specimen URINE SPECIMEN 02/01/2015 12:15 015 (specimen) OBTAINED BY CLEAN PM CDT 12:27 PM C DT CATCH PROCEDURE / Unknown Roberto Carlos Escobedo MD LAB - URINE ORDERABLES Performing Organization Address City/[facility] Phon e Number M [facility] [address] [place], [place] [address] [facility] [address] [place] [id number] [phone], [facility] [phone] Chlamydia trachomatis PCR (02/01/2015 11:38 AM CDT) Component Value Ref Test Analysis Performed At [facility] Mantis Vision Range Method Time Signature Specimen [facility] Chlamydia Negative NEG [facility] Trachomatis Negative for C. trachomatis rRNA by web applications administrator mediated amplification. [facility] PCR A negative result by transc [...] MICRO GENERAL ORDERABL ES Performing Organization Address City/[facility]/ZIP Code Phon e Number [address] [place] [address], [facility] [phone] Neisseria gonorrhoeae PCR (02/01/2015 11:38 AM CDT) Component Value Ref Test Analysis Performed At [facility] Method Time Signature Specimen Vagina [facility] N Gonorrhea Negative NEG [facility] PCR Negative for N. gonorrhoeae rRNA by transcripti on mediated amplification. [facility] A negative result by transc ription [...] MICRO GENERAL ORDERABL ES Performing Organization Address City/[facility]/ZIP Code Phon e Number [address] [place] [address], [facility] [phone] (ABNORMAL) Wet prep (02/01/2015 11:38 AM CDT) [facility] Method Time Signature Specimen Vag[facility] Wet Prep No Trichomonas seen [place] Clue cells seen [facility] No yeast seen [facility] Few WBC'S seen (A) Micro Report FINAL [place] Status 02/01/2015 [facility] Specimen Anatomical Collection Method Collection Time Receive d Time (Source) Location / / Volume Laterality Specimen from 02/01/2015 11:38 02/01/2015 vagina AM CDT 11:39 AM CDT (specimen) Roberto Carlos Escobedo MD LAB - MICRO GENERAL ORDERABL ES Performing Organization Address City/State/ZIP Code Phon e Number M [place] [address] [address] [place], [place] [address] [facility] [address] [place], [place] [address] 7, [facility] [phone] documented in this encounter Visit Diagnoses Diagnosis [...] grams documented in this encounter Care Teams Lumber Loader Relationship Specialty Start Date End Date Jamin Silva MD PCP - General Family Medicine - Sports 06/01/13 Medicine documented as of this encounter
--- OUTSIDE RECORDS SUMMARY | 2022-03-15 12:29 | XMS_ITS | Encounter Summary ---
:1980 Author Organization [place] Address [address] [place] [address]. [place] [address] Care Team Providers Name Role Phone Ratna Mackey MD Primary Care Provider Reason for Visit Reason Comments Other patient complaining of breas t pain Encounter Details Date Type Department Care Team Description 01/15/2016 Emergency [facility] Shaharm Renteria, Cellulitis of right [place] [facility] t DO breast [address] EMERGENCY PHYSICIANS [facility] [id number] [address] [phone] [place], [place] [address] (Wo rk) Social History Tobacco Use Types [...] this encounter Discharge Instructions Discharge Andrew Shahram Rsus, - 01/15/2016 11:35 PM CDT Images from [...] are in pain. Ask what kind of soei-qsn-dbocrls medication you can takefor pain. ?? Apply [...] or pus draining from the area ?? [phone] [employer]. [address] [place] [address], [place] [address]. All rights reserved. This information is not [...] R-0, Local Print Shahram Renteria D.O. 01/15/2016 [facility] EMERGENCY DEPARTMENT Shahram Renteria DO [...] / Laterality Volume Impressions 03/12/2016 7:49 AM SALES DRIVER IMPRESSION: BI-RADS CATEGORY: 1 - ??Negative. RECOMMENDED FOLLOW-UP: Clinical follow-u hollis MCDOWELL MD Narrative 03/12/2016 7:49 AM SALES DRIVER DIAGNOSTIC ULTRASOUND RIGHT BREAST, 03/12/2016 7:49 [...] dose documented in this encounter Care Teams Bench Loom Weaver Relationship Specialty Start Date End Date Ratna Mackey MD PCP - General Family Practice 03/07/15 12/29/20 [facility] [address] [facility] [place] [address] documented as of this encounter
--- OUTSIDE RECORDS SUMMARY | 2022-03-15 12:30 | XMS_ITS | Encounter Summary ---
:1980 Author Organization [place] Address [address] [place] [address] Care Team Providers Name Role Phone Jamin Silva MD Primary Care Provider Reason for Visit Reason Comments Abdominal Pain Encounter Details Date Type Department Care Team Description 02/18/2014 - Emergency [facility] Lindsay Lu Ab dominal pain, left 02/19/2014 [facility] Emergency lower quadrant Dept SKIN REJUVENATION (Primary Dx) [address] [place], [place] [address] [facility] [phone] [facility] [phone] [place] [id number] (Wo rk) Social History Tobacco Use Types Packs/Day Years Used Date Smoking Tobacco: Every Day Cigarettes 0.3 Alcohol Use Standard Drinks/Week Comments No 0 (1 standard drink = 0.6 oz pure alcoho l) Sex Assigned at Date Recorded Not on file documented as of this encounter Last Filed Vital Signs Vital Sign Reading Time Taken Comments Blood Pressure 115/78 02/19/2014 12:03 AM BROADCAST METEOROLOGIST Pulse 79 02/19/2014 12:03 AM BROADCAST METEOROLOGIST Temperature 36.8 ??C (98.2 ??F) 02/18/2014 8:16 PM BROADCAST METEOROLOGIST Respiratory Rate 18 02/18/2014 8:16 PM BROADCAST METEOROLOGIST Oxygen Saturation 98% 02/19/2014 12:03 AM BROADCAST METEOROLOGIST Inhaled Oxygen Concentration - - Weight 77.6 kg (171 lb) 02/18/2014 8:16 PM BROADCAST METEOROLOGIST Height - - Body Mass Index - - documented in this encounter Discharge Instructions Discharge InstructionsLindsay Lu MD - 02/18/2014 11:38 PM BROADCAST METEOROLOGIST Discharge Instructions Abdominal Pain Abdominal pain can [...] directed by your doctor today. Before using llzu-oep-kvzkgqi medications, ask your doctor and make sure [...] contain Tylenol?? (acetaminophen), including Vicodin??, Tylenol #3??, [place]??, Lortab??, and Percocet??. You should not take [...] if there is anything that worries you. DCAST METEOROLOGIST documented in this encounter Medications at Time [...] time. She has not followed up with ARMATURE COIL WINDER since discharge from the ED. Allergies: NKDA [...] pain, although has not followed up with research scholar. Patient's pain improved with interventions in the ED. I did discuss our chronicand recurrent pain policy with the patient. Patient did have a US that showed a collapsed 1 cm cyst.There is no evidence of torsion, mass, diverticulitis, or other abnormalities. Bloodwork, UA and wetprep were negative. I will have them follow up with research scholar in the next 3 days and return with worsening pain, vomiting or fever. Diagnosis: 1. Left lower quadrant abdominal pain. Bimal Miranda, am serving as a scribe on 02/18/2014 at 9:02 PM to personally document services performed by Dr. Lu, Lindsay Mcdonough MD based on my observations and the provider's statements to me. Bimal Calderón 02/18/2014 [facility] EMERGENCY DEPARTMENT Lindsay Lu MD 02/19/14 0117 DCAST METEOROLOGIST Floridalma Rivas, RN - 02/18/2014 8:15 PM CST Alert and oriented x 3 airway,breathing and circulation intact LLQ abd pain, has had ovarian cyst since feb 08 , pain worse yesterday, nausea DCAST METEOROLOGIST documented in this encounter Plan of Treatment Not on filedocumented as of this encounter Procedures Procedure Name Priority Date/Time Associated Comments Diagnosis US PELVIS COMPLETE W STAT 02/18/2014 10:45 Res ults for this TRANSVAGINAL AND PM BROADCAST METEOROLOGIST procedure a re in DOPPLER LIMITED the results section. HCG QUALITATIVE URINE STAT 02/18/2014 9:53 PM Results for this BROADCAST METEOROLOGIST procedure are i n the results section. ROUTINE UA WITH STAT 02/18/2014 9:53 PM Result s for this MICROSCOPIC BROADCAST METEOROLOGIST procedure are i n the results section. WET PREPARATION STAT 02/18/2014 9:31 PM Result s for this BROADCAST METEOROLOGIST procedure are i n the results section. NEISSERIA GONORRHOEAE STAT 02/18/2014 9:31 PM Abdominal Renny n, Results for this PCR BROADCAST METEOROLOGIST Left Lower Quadrant procedur e are in the results section. CHLAMYDIA TRACHOMATIS STAT 02/18/2014 9:31 PM Abdominal Renny n, Results for this PCR BROADCAST METEOROLOGIST Left Lower Quadrant procedur e are in the results section. CBC WITH PLATELETS & STAT 02/18/2014 9:11 PM R esults for this DIFFERENTIAL BROADCAST METEOROLOGIST procedure are i n the results section. BASIC METABOLIC PANEL STAT 02/18/2014 9:11 PM Results for this BROADCAST METEOROLOGIST procedure are i n the results section. documented in this encounter Results US Pelvic Complete w Transvaginal & Abd/Pel Duplex Limited (02/18/2014 10:45 PM BROADCAST METEOROLOGIST) Anatomical Region Laterality Modality Abdomen/Pelvis Ultrasound Specimen (Source) Anatomical Location Collection Method / Collectio n Time Received Time / Laterality Volume Impressions 02/18/2014 11:08 PM BROADCAST METEOROLOGIST IMPRESSION: 1. No evidence for ovarian torsion. Norm al blood flow is seen in both ovaries. 2. Collapsing follicle left ovary. 3. Small amount of fluid in the endometr ial cavity. BETSY MILLS MD Narrative 02/18/2014 11:08 PM BROADCAST METEOROLOGIST US PELVIS COMPLETE W TRANSVAGINAL AND DOPPLER [...] ORDERABLES HCG qualitative urine (02/18/2014 9:53 PM BROADCAST METEOROLOGIST) P athologist Signature HCG Qual Urine Negative NEG [facility] Specimen Anatomical Collection Method Collection Time Receive d Time (Source) Location / / Volume Laterality Urine specimen URINE SPECIMEN 02/18/2014 9:53 PM 02/18 (specimen) OBTAINED BY CLEAN BROADCAST METEOROLOGIST 10:[address] CATCH PROCEDURE / Unknown Lindsay Lu MD LAB - URINE ORDERABLES Performing Organization Address City/State/ZIP Code Phon e Number M [facility] [address] [place] [address] [facility] (ABNORMAL) UA with Microscopic (02/18/2014 9:53 PM BROADCAST METEOROLOGIST) Patholo gist Method Time Signature Color Urine Yellow [facility] Appearance Urine Clear [facility] Glucose Urine Negative NEG mg/dL [facility] Bilirubin Urine Negative NEG [facility] Ketones Urine Negative NEG mg/dL [facility] Specific [place] 1.016 1.003 - [place] Urine 1.035 [facility] Blood Urine Negative NEG [facility] pH Urine 6.0 5.0 - 7.0 [place] pH [facility] Protein Albumin Negative NEG mg/dL [facility] Urobilinogen Normal 0.0 - 2.0 [place] mg/dL mg/dL [facility] Nitrite Urine Negative NEG [facility] Leukocyte Negative NEG [place] Esterase Urine [facility] Source Midstream [facility] LAB WBC Urine 0 0 - 2 [place] /HPF [facility] RBC Urine <1 0 - 2 [place] /HPF [facility] Squamous <1 0 - 1 [place] Epithelial /HPF /HPF [facility] LAB Mucous Urine Present (A) NEG /LPF [facility] Specimen Anatomical Collection Method Collection Time Receive d Time (Source) Location / / Volume Laterality Urine specimen URINE SPECIMEN 02/18/2014 9:53 PM 02/18 (specimen) OBTAINED BY CLEAN BROADCAST METEOROLOGIST 10:[address] CATCH PROCEDURE / Unknown Lindsay Lu MD LAB - URINE ORDERABLES Performing Organization Address City/State/ZIP Code Phon e Number M [facility] [address] [place], [place] [address] [facility] Neisseria gonorrhoea PCR (02/18/2014 9:31 PM BROADCAST METEOROLOGIST) Component Value Ref Test Analysis Performed At [facility] Method Time Signature Specimen Vag[facility] N Gonorrhea Negative NEG [facility] [...] swab 02/18/2014 9:31 PM 4 9:35 (specimen) BROADCAST METEOROLOGIST PM BROADCAST METEOROLOGIST Lindsay Lu MD LAB - MICRO GENERAL ORDERABL ES Performing Organization Address City/[facility]/ZIP Code Phon e Number [place] [phone] [facility] MICROBIOLOGY Chlamydia trachomatis PCR (02/18/2014 9:31 PM BROADCAST METEOROLOGIST) Component Value Ref Test Analysis Performed At [facility] Specimen Vagina [facility] Chlamydia Negative NEG [facility] Trachomatis Negative for C. trachomatis rRNA by endoscopy rn mediated amplification. MICROBIOLOGY PCR A negative result [...] swab 02/18/2014 9:31 PM 4 9:35 (specimen) BROADCAST METEOROLOGIST PM BROADCAST METEOROLOGIST Lindsay Lu MD LAB - MICRO GENERAL ORDERABL ES Performing Organization Address City/State/ZIP Code Phon e Number [address] [address] [facility] MICROBIOLOGY Wet prep (02/18/2014 9:31 PM BROADCAST METEOROLOGIST) [facility] Method Time Signature Specimen Vagina [facility] LAB Wet Prep Few PMNs seen [place] No clue cells seen [facility] No yeast seen [facility] LAB No Trichomonas seen Micro Report FINAL [place] Status 02/18/2014 [facility] Specimen Anatomical Collection Method Collection Time Receive d Time (Source) Location / / Volume Laterality Vaginal swab 02/18/2014 9:31 PM 4 9:35 (specimen) BROADCAST METEOROLOGIST PM BROADCAST METEOROLOGIST Lindsay Lu MD LAB - MICRO GENERAL ORDERABL ES Performing Organization Address City/State/ZIP Code Phon e Number [facility] [address] [place], [place] [address] [facility] (ABNORMAL) Basic metabolic panel (02/18/2014 9:11 PM BROADCAST METEOROLOGIST) athologist Signature Sodium 139 133 - 144 [place] mmol/L [facility] Potassium 3.7 3.4 - 5.3 [place] mmol/L [facility] Chloride 109 94 - 109 [place] mmol/L [facility] Carbon Dioxide 24 20 - 32 [place] mmol/L [facility] Anion Gap 6 3 - 14 [place] mmol/L [facility] Glucose 82 70 - 99 [place] mg/dL [facility] Comment: Effective 11/10/2013, the reference range for this assay has changed to reflect new instrumentation/methodology. Urea Nitrogen 13 7 - 30 mg/dL [facility] Comment: Effective 11/10/2013, the reference range for this assay has changed to reflect new instrumentation/methodology. Creatinine 0.85 0.52 - 1.04 mg/dL [facility] GFR Estimate 77 >60 mL/min/1.7m2 [facility] Comment: Non GFR Calc GFR Estimate If Black >90 >60 mL/min/1.7m2 F [facility] GFR Calc [facility] LAB Calcium 8.1 (L) 8.5 - 10.1 mg/dL [facility] Comment: Effective 11/10/2013, the reference range for this assay has changed to reflect new instrumentation/methodology. Specimen Anatomical Collection Method Collection Time Receive d Time (Source) Location / / Volume Laterality Blood specimen 02/18/2014 9:11 PM 014 9:12 (specimen) BROADCAST METEOROLOGIST PM BROADCAST METEOROLOGIST Lindsay Lu MD LAB - BLOOD ORDERABLES Performing Organization Address City/State/ZIP Code Phon e Number M [facility] [address] [place], [place] [address] [facility] CBC with platelets differential (02/18/2014 9:11 PM BROADCAST METEOROLOGIST) [facility] gist Method Time Signature WBC 7.6 4.0 - [place] 11.0 [facility] [address] LAB RBC Count 4.26 3.8 - 5.2 [place] 10e12/L [facility] Hemoglobin 12.7 11.7 - [place] 15.7 g/dL [facility] Hematocrit 38.0 35.0 - [place] 47.0 % [facility] MCV 89 78 - 100 [place] fl [facility] MCH 29.8 26.5 - [place] 33.0 pg [facility] MCHC 33.4 31.5 - [place] 36.5 g/dL [facility] RDW 13.4 10.0 - [place] 15.0 % [facility] Platelet Count 200 150 - [address] LAB Diff Method Automated [facility] LAB % Neutrophils 68.0 % [facility] % Lymphocytes 22.2 % [facility] % Monocytes 8.3 % [facility] % Eosinophils 1.3 % [facility] % Basophils 0.1 % [facility] % Immature 0.1 % [place] Granulocytes [facility] Absolute 5.2 1.6 - 8.3 [place] Neutrophil 10e9/L [facility] Absolute 1.7 0.8 - 5.3 [place] Lymphocytes [address] [place] [address] LAB Absolute 0.6 0.0 - 1.3 [place] Monocytes [address] LAB Absolute 0.1 0.0 - 0.7 [place] Eosinophils [address] LAB Absolute 0.0 0.0 - 0.2 [place] Basophils [address] [place] [address] LAB Abs Immature 0.0 0 - 0.4 [place] Granulocytes [address] [place] [address] LAB Specimen Anatomical Collection Method Collection Time Receive d Time (Source) Location / / Volume Laterality Blood specimen 02/18/2014 9:11 PM 014 9:12 (specimen) BROADCAST METEOROLOGIST PM BROADCAST METEOROLOGIST Lindsay Lu MD LAB - BLOOD ORDERABLES Performing Organization Address City/State/ZIP Code Phon e Number M [facility] [address] [place], [place] [address] [facility] documented in this encounter Visit Diagnoses Diagnosis Abdominal pain, left lower quadrant - Pr imary documented in this encounter Administered Medications Inactive Administered Medications - up to 3 most recent administrations Medication Order MAR Action Action Date Dose Rate Site diphenhydrAMINE (BENADRYL) Given 02/18/2014 9:16 PM BROADCAST METEOROLOGIST 25 mg injection 25 mg 25 mg, Intravenous, ONCE, On Fri02/18/14 at 2107, For 1 dose ketorolac (TORADOL) injection 30 mg Given 02/18/2014 9:14 PM BROADCAST METEOROLOGIST 30 mg 30 mg, Intravenous, ONCE, On Fri02/18/14 at 2107, For 1 dose, Do not give within 6 hours of Ibuprofen. oxyCODONE-acetaminophen (PERCOCET) 5-325 Given 02/18/2014 10 :43 PM BROADCAST METEOROLOGIST 1 tablet MG per tablet 1 tablet [...] 1 0 mg Given 02/18/2014 9:18 PM BROADCAST METEOROLOGIST 10 mg 10 mg, Intravenous, ONCE, On Fri02/18/14 at 2107, For 1 dose sodium chloride 0.9 % BOLUS New Bag 02/18/2014 9:14 PM BROADCAST METEOROLOGIST 1,000 m Ls 1000 mL/hr 1,000 mL Intravenous, 1,000 mL, ONCE, at 1,000 mL/hr, Administer over 1 Hours, On Fri02/18/14 at 2107, For 1 dose documented in this encounter Active and Recently Administered Medications Times are shown in BROADCAST METEOROLOGIST. Scheduled Medication Order 02/17/2014 02/18/2014 02/19/2014 diphenhydrAMINE [...] dose documented in this encounter Care Teams International Travel Consultant Relationship Specialty Start Date End Date Jamin Silva MD PCP - General Family Medicine - Sports 06/01/13 Medicine documented as of this encounter
--- OUTSIDE RECORDS SUMMARY | 2022-03-15 12:30 | XMS_ITS | Encounter Summary ---
:1980 Author Organization [place] Address [address] [place] [address] Care Team Providers Name Role Phone Jamin Silva MD Primary Care Provider Reason for Visit Reason Comments Pharyngitis Encounter Details Date Type Department Care Team Description [facility]2013 [facility] Emergency Dep t (Primary Dx) [address] EMERGENCY PHYSICIANS [facility] [phone] [facility] [phone] [address] [place], [place] [address] (Wo rk) Social History Tobacco Use Types Packs/Day Years Used Date Smoking Tobacco: Never Assessed Sex Assigned at Date Recorded Not on file documented as of this encounter Last Filed Vital Signs Vital Sign Reading Time Taken Comments Blood Pressure 121/81 06/01/2013 9:22 PM [facility] Pulse 76 06/01/2013 8:19 PM [facility] Temperature 36.7 ??C (98.1 ??F) 06/01/2013 8:19 PM [facility] [employer] Respiratory Rate 16 06/01/2013 9:22 PM [facility] [employer] Oxygen Saturation 99% 06/01/2013 9:22 PM [facility] [employer] Inhaled Oxygen Concentration - - Weight 79.4 kg (175 lb) 06/01/2013 8:19 PM [facility] [employer] Height - - Body Mass Index - - documented in this encounter Discharge Instructions Discharge InstructionsShon Patel MD - 06/01/2013 9:03 PM [facility] [employer] Home Back SP RU CH *PHARYNGITIS (Sore [...] ?? Muffled voice ?? New rash ?? [phone] [facility], [address] [place] [address]. All rights reserved. This information is not intended as a substitute for professional medical care. Always follow your healthcare professional's instructions. [facility] [employer] documented in this encounter Medications at Time [...] record. The patient was placed on a pvc monitor and continuous pulse oximeter. The patient [...] provider's statements to me. Christine Agudelo 06/01/2013 [facility] Shon Patel MD 06/02/13 0032 [employer] [employer] Lindsay Gregorio RN - 06/01/2013 8:31 PM CST MD at bedside. [facility] [employer] [employer] Lindsay Gregorio, ANGE - 06/01/2013 8:18 PM CST severe sore throat for 3 days, was sick a couple weeks ago with vomiting and fever 102.5, no othercomplaints at this time [facility] [employer] documented in this encounter Plan of Treatment Not on filedocumented as of this encounter Procedures Procedure Name Priority Date/Time Associated Diagnosis Comme nts RAPID STREP SCREEN STAT 06/01/2013 8:17 PM Res ults for this THROAT SWAB [facility] procedure are i n the results section. BETA HEMOLYTIC Routine 06/01/2013 8:17 PM Results for this STREP GROUP A [facility] procedure are in CULTURE the results section. documented in this encounter Results Beta strep group A culture (06/01/2013 8:17 PM [facility] [employer]) Component Value Ref Test Analysis Performed At [facility] Range Method Time Signature Specimen Throat [facility] LAB Culture Micro No Beta [facility] Streptococcus MICROBIOLOGY isolated Micro Report FINAL 06/03/2013 [facility] Status MICROBIOLOGY Specimen Anatomical Collection Method Collection Time Receive d Time (Source) Location / / Volume Laterality 06/01/2013 8:17 PM 4 8:27 [facility] PM [facility] Shon Patel MD LAB - MICRO GENERAL ORDERABL ES Performing Organization Address City/State/ZIP Code Phon e Number [facility] [address] [place] [address] [facility] MICROBIOLOGY Rapid strep screen (06/01/2013 8:17 PM [facility] [employer]) Component Value Ref Test Analysis Performed At [facility] Range Method Time Signature Specimen Throat [facility] Rapid Strep A NEGATIVE: No Group A strepto coccal antigen detected by immunoassay, await WILSON Screen culture report[facility] Micro Report FINAL 06/01/2013 [facility] Specimen Anatomical Collection Method Collection Time Receive d Time (Source) Location / / Volume Laterality Specimen from 06/01/2013 8:17 PM 06/01/19 14 8:27 throat [facility] PM [facility] (specimen) Shon Patel MD LAB - MICRO GENERAL ORDERABL ES Performing Organization Address City/State/ZIP Code Phon e Number [facility] [address] [place], [place] [address] [facility] documented in this encounter Visit Diagnoses Diagnosis Acute pharyngitis - Primary documented in this encounter Administered Medications Inactive Administered Medications - up to 3 most recent administrations Medication Order MAR Action Action Date Dose Rate Site dexamethasone (DECADRON) tablet 12 Given 06/01/2013 8:39 PM [facility] [employer] 12 mg mg 12 mg, Oral, ONCE, On Fri06/01/13 at 2044, For 1 dose documented in this encounter Active and Recently Administered Medications Times are shown in [facility]. Scheduled Medication Order 05/30/2013 05/31/2013 06/01/2013 dexamethasone (DECADRON) tablet 12 mg (COMPLETED) 2038 (Given - Provider: Lindsay Gregorio RN) 12 mg, Oral, ONCE, Fri06/01/13 at 5, For 1 dose documented in this encounter Care Teams Rfp Writer Relationship Specialty Start Date End Date Jamin Silva MD PCP - General Family Medicine - Sports 06/01/13 Medicine documented as of this encounter
--- OUTSIDE RECORDS SUMMARY | 2022-03-15 12:30 | XMS_ITS | Encounter Summary ---
:1980 Author Organization [place] Address [address] [place] [address] Care Team Providers Name Role Phone Jamin Silva MD Primary Care Provider Reason for Visit Reason Comments Flank Pain Encounter Details Date Type Department Care Team Description 02/08/2014 Emergency [facility] Mili Tate A bdominal pain, left [facility] Dep t lower quadrant [address] EMERGENCY PHYSICIANS (Primary Dx) [facility] [phone] [id number] [facility] [phone] [place], [place] [address] (Wo rk) Social History [...] directed by your doctor today. Before using mpxa-zxy-uxkmorn medications, ask your doctor and make sure [...] contain Tylenol?? (acetaminophen), including Vicodin??, Tylenol #3??, [place]??, Lortab??, and Percocet??. 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 Review of Systems Constitutional: Negative for fever [...] follow-up was reviewed. The patient was prescribed Brownwood and Zofran. Impression & Plan Medical Decision [...] I discharged the patient home with oral Brownwood for pain as well as Zofran as [...] and the provider's statements to me. 02/08/2014 [facility] EMERGENCY DEPARTMENT Mili Tate MD 02/08/14 1535 [...] UA with Microscopic (02/08/2014 11:15 AM CDT) [facility] gist Method Time Signature Color Urine Light Yellow [facility] Appearance Urine Clear [facility] Glucose Urine Negative NEG mg/dL [facility] Bilirubin Urine Negative NEG [facility] Ketones Urine Negative NEG mg/dL [facility] Specific [place]an 1.010 1.003 - [place] Urine 1.035 [facility] Blood Urine Negative NEG [facility] pH Urine 6.5 5.0 - 7.0 [place] pH [facility] Protein Albumin Negative NEG mg/dL [facility] Urobilinogen Normal 0.0 - 2.0 [place] mg/dL mg/dL [facility] Nitrite Urine Negative NEG [facility] Leukocyte Negative NEG [place] Esterase Urine [facility] Source Midstream [facility] WBC Urine <1 0 - 2 [place] /HPF [facility] RBC Urine 0 0 - 2 [place] /HPF [facility] Bacteria Urine Few (A) NEG /HPF [facility] Squamous <1 0 - 1 [place] Epithelial /HPF /HPF [facility] Specimen Anatomical Collection Method Collection Time Receive d Time (Source) Location / / Volume Laterality Urine specimen URINE SPECIMEN 02/08/2014 11:15 014 (specimen) OBTAINED BY CLEAN AM CDT 11:20 AM C DT CATCH PROCEDURE / Unknown Mili Tate MD LAB - URINE ORDERABLES Performing Organization Address City/[facility]/ZIP Code Phon e Number M [facility] [address] [place], [place] [address] [facility] HCG QUALitative (02/08/2014 10:44 AM CDT) Patholo gist Method Time Signature HCG Qualitative Negative NEG [facility] LAB Specimen Anatomical Collection Method Collection Time Receive d Time (Source) Location / / Volume Laterality Blood specimen 02/08/2014 10:44 4 (specimen) AM CDT 10:53 AM CDT Mili Tate MD LAB - BLOOD ORDERABLES Performing Organization Address [facility] Phon e Number M [facility] [address], [place] [address] [facility] Basic metabolic panel (02/08/2014 10:44 AM CDT) P athologist Signature Sodium 138 133 - 144 [place] mmol/L [facility] Potassium 4.1 3.4 - 5.3 [place] mmol/L [facility] Chloride 108 94 - 109 [place] mmol/L [facility] Carbon Dioxide 26 20 - 32 [place] mmol/L [facility] Anion Gap 4 3 - 14 [place] mmol/L [facility] Glucose 94 70 - 99 [place] mg/dL [facility] Comment: Effective 11/10/2013, the reference range for this assay has changed to reflect new instrumentation/methodology. Urea Nitrogen 13 7 - 30 mg/dL [facility] Comment: Effective 11/10/2013, the reference range for this assay has changed to reflect new instrumentation/methodology. Creatinine 0.84 0.52 - 1.04 mg/dL [facility] GFR Estimate 78 >60 mL/min/1.7m2 [facility] Comment: Non GFR Calc GFR Estimate If Black >90 >60 mL/min/1.7m2 F [facility] GFR Calc [facility] LAB Calcium 8.8 8.5 - 10.1 mg/dL [facility] Comment: Effective 11/10/2013, the reference range for this assay has changed to reflect new instrumentation/methodology. Specimen Anatomical Collection Method Collection Time Receive d Time (Source) Location / / Volume Laterality Blood specimen 02/08/2014 10:44 4 (specimen) AM CDT 10:53 AM CDT Mili Tate MD LAB - BLOOD ORDERABLES Performing Organization Address City/State/ZIP Code Phon e Number M [facility] [address] [place] [address] [facility] CBC with platelets differential (02/08/2014 10:44 AM CDT) [facility] gist Method Time Signature WBC 5.7 4.0 - [place] 11.0 [facility] 10e9/[facility] RBC Count 4.42 3.8 - 5.2 [place] 10e12/L [facility] Hemoglobin 13.0 11.7 - [place] 15.7 g/dL [facility] Hematocrit 38.9 35.0 - [place] 47.0 % [facility] MCV 88 78 - 100 [place] fl [facility] MCH 29.4 26.5 - [place] 33.0 pg [facility] MCHC 33.4 31.5 - [place] 36.5 g/dL [facility] RDW 12.9 10.0 - [place] 15.0 % [facility] Platelet Count 214 150 - 450 [place] 10e9/L [facility] Diff Method Automated [facility] % Neutrophils 62.8 % [facility] % Lymphocytes 25.0 % [facility] % Monocytes 9.9 % [facility] % Eosinophils 1.9 % [facility] % Basophils 0.2 % [facility] % Immature 0.2 % [place] Granulocytes [facility] Absolute 3.6 1.6 - 8.3 [place] Neutrophil 10e9/L [facility] Absolute 1.4 0.8 - 5.3 [place] Lymphocytes 10e9/L [facility] Absolute 0.6 0.0 - 1.3 [place] Monocytes [address] [place] [address] LAB Absolute 0.1 0.0 - 0.7 [place] Eosinophils [address] [place] [address] LAB Absolute 0.0 0.0 - 0.2 [place] Basophils [address] [place] [address] LAB Abs Immature 0.0 0 - 0.[address] LAB Specimen Anatomical Collection Method Collection Time Receive d Time (Source) Location / / Volume Laterality Blood specimen 02/08/2014 10:44 4 (specimen) AM CDT 10:53 AM CDT Mili Tate MD LAB - BLOOD ORDERABLES Performing Organization Address City/State/ZIP Code Phon e Number M [place] [address] [address] [place], [place] [address] [facility] documented in this [...] doses. documented in this encounter Care Teams Refinery Operator Coking Relationship Specialty Start Date End Date Jamin Silva MD PCP - General Family Medicine - Sports 06/01/13 Medicine documented as of this encounter
--- OUTSIDE RECORDS SUMMARY | 2022-03-15 12:30 | XMS_ITS | Encounter Summary ---
:1980 Author Organization [place] Address [address] [place] [id number] Care Team Providers Name Role Phone Jamin Silva MD Primary Care Provider Reason for Visit Reason Comments Abdominal Pain Encounter Details Date Type Department Care Team Description 02/12/2014 Emergency [facility] Ruth Pacheco Abdom inal pain, left lower quadrant (Primary Dx); [facility] Emergency Dep t MD Co[facility] [address] [facility] EMERGENCY PHYSICIANS [facility] [phone] [facility] [phone] [place], [place] [address] (Wo rk) Social History [...] directed by your doctor today. Before using gwpi-esh-qhmglrt medications, ask your doctor and make sure [...] contain Tylenol?? (acetaminophen), including Vicodin??, Tylenol #3??, [place]??, Lortab??, and Percocet??. You should not take [...] was otherwise unremarkable. She was discharged with Wh[place] forpain, Zofran for nausea, and instructed to follow up with her PMD. The patient states that she was not able to see her doctor at [facility] until 02/15/14. Meanwhile, she has experienced intermittent pain in the left lower quadrant which has worsened since her last visit. It is a sharp, stabbing pain that radiates to the left lower back, worse with walking. She has tried [place] twice without relief and took ibuprofen 800 [...] concerns. Review of Past Medical Records: 02/08/14, [facility] ED CT abdomen and pelvis w/o contrast: [...] through Care Everywhere, as well as the [place] Prescription Monitoring Program. On 01/24/14, she signed a long- term controlled substance agreement for chronic chest, bilateral neck and back pain at [facility]. She has received 13 prescriptions for narcotics [...] to me. Ruth Pacheco MD 02/14/14 0954 ER [facility] documented in this encounter Plan of Treatment [...] Negative NEG [facility] Specimen Anatomical Collection Method Collection Time Receive d Time (Source) Location / / Volume Laterality Urine specimen URINE SPECIMEN 02/12/2014 2:44 PM 02/12 2:51 (specimen) OBTAINED BY CLEAN CDT PM CDT CATCH PROCEDURE / Unknown Ruth Pacheco MD LAB - URINE ORDERABLES Performing Organization Address City/State/ZIP Code Phon e Number M [facility] [address], [place] [address] [facility] (ABNORMAL) UA with Microscopic (02/12/2014 2:44 PM CDT) [facility] gist Method Time Signature Color Urine Straw [facility] Appearance Urine Clear [facility] Glucose Urine Negative NEG mg/dL [facility] Bilirubin Urine Negative NEG [facility] Ketones Urine Negative NEG mg/dL [facility] Specific [place] 1.005 1.003 - [place] Urine 1.035 [facility] Blood Urine Negative NEG [facility] pH Urine 6.5 5.0 - 7.0 [place] pH [facility] Protein Albumin Negative NEG mg/dL [place] Urine [facility] Urobilinogen Normal 0.0 - 2.0 [place] mg/dL mg/dL [facility] Nitrite Urine Negative NEG [facility] Leukocyte Negative NEG [place] Esterase Urine [facility] Source Midstream [place] Urine [facility] WBC Urine 1 0 - 2 [facility] RBC Urine <1 0 - 2 [facility] Bacteria Urine Few (A) NEG /HPF [facility] Squamous <1 0 - 1 [place] Epithelial /HPF /HPF [facility] Mucous Urine Present (A) NEG /LPF [facility] Specimen Anatomical Collection Method Collection Time Receive d Time (Source) Location / / Volume Laterality Urine specimen URINE SPECIMEN 02/12/2014 2:44 PM 02/12 2:51 (specimen) OBTAINED BY CLEAN CDT PM CDT CATCH PROCEDURE / Unknown Ruth Pacheco MD LAB - URINE ORDERABLES Performing Organization Address City/State/ZIP Code Phon e Number [place] [address], [place] [address] [facility] CBC with platelets differential (02/12/2014 2:13 PM CDT) [facility] Method Time Signature WBC 7.0 4.0 - [place] 11.0 [facility] 10e9/L [facility] RBC Count 4.60 3.8 - 5.2 [place] 10e12/L [facility] Hemoglobin 13.6 11.7 - [place] 15.7 g/dL [facility] Hematocrit 40.4 35.0 - [place] 47.0 % [facility] MCV 88 78 - 100 [place] fl [facility] MCH 29.6 26.5 - [place] 33.0 pg [facility] MCHC 33.7 31.5 - [place] 36.5 g/dL [facility] RDW 13.0 10.0 - [place] 15.0 % [facility] Platelet Count 204 150 - 450 [place] [address] [place] [address] LAB Diff Method Automated [facility] % Neutrophils 71.0 % [facility] % Lymphocytes 22.0 % [facility] % Monocytes 6.1 % [facility] % Eosinophils 0.7 % [facility] % Basophils 0.1 % [facility] % Immature 0.1 % [place] Granulocytes [facility] Absolute 5.0 1.6 - 8.3 [place] Neutrophil 10e9/L [facility] Absolute 1.6 0.8 - 5.3 [place] Lymphocytes 10e9/L [facility] Absolute 0.4 0.0 - 1.3 [place] Monocytes 10e9/L [facility] Absolute 0.1 0.0 - 0.7 [place] Eosinophils 10eL [facility] Absolute 0.0 0.0 - 0.2 [place] Basophils 10eL [facility] Abs Immature 0.0 0 - 0.4 [place] Granulocytes [address] [place] [address] LAB Specimen Anatomical Collection Method Collection Time Receive d Time (Source) Location / / Volume Laterality Blood specimen 02/12/2014 2:13 PM 014 2:22 (specimen) CDT PM CDT Ruth Pacheco MD LAB - BLOOD ORDERABLES Performing Organization Address City/State/ZIP Code [facility] e Number M [address] [address] [facility] Neisseria gonorrhoea PCR (02/12/2014 2:00 PM CDT) Component Value Ref Test Analysis Performed At [facility] Range Method Time Signature Specimen Pelvic [facility] N Gonorrhea Negative NEG [facility] PCR [...] MICRO GENERAL ORDERAB LES Performing Organization Address City/[facility]/ZIP Code Phon e Number [address] [address] [facility] MICROBIOLOGY Chlamydia trachomatis PCR (02/12/2014 2:00 PM CDT) Component Value Ref Test Analysis Performed At [facility] [employer]Fares Range Method Time Signature Specimen Pelvic [facility] Chlamydia Negative NEG [facility] Trachomatis Negative for C. trachomatis rRNA by integration architect mediated amplification. MICROBIOLOGY PCR A negative result [...] MICRO GENERAL ORDERAB LES Performing Organization Address City/[facility]/ZIP Code Phon e Number [facility] [address] [place] [address] [facility] MICROBIOLOGY Wet prep (02/12/2014 2:00 PM CDT) [facility] Method Time Signature Specimen Pelvic [facility] LAB Wet Prep No clue cells seen [place] No Trichomonas seen [place] No yeast seen [facility]PITAL LAB Few WBC'S seen Micro Report FINAL [place] Status 02/12/2014 [facility] Specimen Anatomical Collection Method Collection Time Receive d Time (Source) Location / / Volume Laterality Vaginal swab 02/12/2014 2:00 PM 4 2:06 (specimen) CDT PM CDT Ruth Pacheco MD LAB - MICRO GENERAL ORDERAB LES Performing Organization Address City/State/ZIP Code Phon e Number [facility] [address] [place], [place] [address] [facility] documented in this encounter Visit [...] pain documented in this encounter Care Teams Press Assistant Relationship Specialty Start Date End Date Jamin Silva MD PCP - General Family Medicine - Sports 06/01/13 Medicine documented as of this encounter
[2022-03-15] MEDS: HYDROmorphone 0.5 mg/0.5 ml inj 1 MG IM (12:35)
[2022-03-15] MEDS: diphenhydrAMINE 25 MG CAPSULE PO (12:36)
--- NOTE | 2022-03-16 08:14 | ED_ITS ---
HPI - Abdominal Pain General Chief Complaint: Abdominal Pain Stated Complaint: Abdominal pain History of Present Illness HPI narrative: 42-year-old woman presenting to the emergency department with complaint of lower right abdominal pain beginning around midnight, now 9:00 a.m. It does radiate around to the back somewhat. She did take some medication without relief. History of dyspareunia, pelvic pain, interstitial cystitis, recurrent abdominal pain. She notes a personal history of nephrolithiasis as well as ovarian cysts. She has had a hysterectomy. no fever. Some nausea. Related Data Home Medications Medication Instructions Recorded Confirmed albuterol sulfate 90 mcg/actuation 2 puff inhalation Q4-6H PRN 10/12/21 04/01/22 aerosol inhaler bupropion HCl 300 mg 24 hr tablet, 300 mg PO DAILY 10/12/21 04/01/22 extended release fluticasone furoate 200 See Rx Instructions inhalation 10/12/21 04/01/22 mcg-vilanterol 25 mcg/dose DAILY inhalation powder Tylenol 01/31/22 04/01/22 ibuprofen 01/31/22 04/01/22 Previous Rx's Medication Instructions Recorded sertraline 100 mg tablet 100 mg PO DAILY #90 tabs 12/19/21 omeprazole 20 mg capsule,delayed 20 mg PO QDAY #90 caps 01/18/22 release trazodone 100 mg tablet 250 mg PO QHS #225 tabs 01/18/22 dicyclomine 10 mg capsule 10 mg PO QID PRN #20 caps 03/21/22 Allergies Allergy/AdvReac Type Severity Reaction Status Date / Time hydrocodone Allergy Intermediate itchy Verified 04/01/22 14:27 [facility] Medical History (Updated 04/02/22 @ 16:06 by Arabella Finch MD) Chronic abdominal pain Cyst of left ovary Cyst of right ovary Essential tremor (08/16/07) Gastroesophageal reflux disease (06/16/08) Generalized anxiety disorder History of abnormal cervical Papanicolaou smear History of COVID-19 Insomnia (01/07/14) Menorrhagia Moderate episode of recurrent major depressive disorder (02/23/07) Restless legs syndrome (03/25/12) Surgical History (Updated 04/02/22 @ 15:53 by Arabella Finch MD) History of laparoscopy History of tubal ligation Status post laparoscopic hysterectomy Family History (Updated 04/02/22 @ 15:54 by Arabella Finch MD) Father High blood pressure Diabetes Chronic mental illness Mother High blood pressure Chronic mental illness Other ASCVD (arteriosclerotic cardiovascular disease) Social History (Updated 04/02/22 @ 16:04 by Arabella Finch MD) Narrative: 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 She smokes daily. She drinks alcohol on occasion. She doesn't use recreational drugs. Smoking Status: Current every day smoker Do you use any of these nicotine containing products: None Second hand tobacco smoke exposure: No How often do you have a drink containing alcohol: monthly or less AUDIT-C Alcohol total score: 1 Non-prescribed substance use: marijuana (any form) Non-prescribed substance use details: edibles, not very often, twice a week Caffeine: No Little interest or pleasure in doing things: several days Feeling down, depressed, or hopeless: nearly every day service: No Exam Narrative: Exam Narrative: Calm. Breathing easily. Uncomfortable with transitions/movements. Cardiovascular with regular rate and rhythm. Extremities well perfused. No edema. moderately tender in the right lower quadrant/ adnexal area. No peritoneal signs. No masses. Some right flank discomfort as well. Const: Vital Signs, click to edit/add: Vital Signs - 24 hr 03/15/22 09:04 03/15/22 11:24 Temperature 97.6 F Pulse Rate [Pulse Oximeter] 87 66 Respiratory Rate 18 18 Blood Pressure [Ri ght Upper Arm] 120/82 114/81 Pulse Oximetry 97 96 Oxygen Delivery Me thod Room Air Room Air Documenting provider has reviewed patient's vital signs: yes Course Vital Signs Vital signs: Initial Vital Signs Temperature 97.6 F 03/15/22 09:04 Temperature Source Temporal Artery Scan 03/15/22 09:04 Pulse Rate 87 03/15/22 09:04 Respiratory Rate 18 03/15/22 09:04 Blood Pressure 120/82 03/15/22 09:04 Blood Pressure Mean 94 03/15/22 09:04 Blood Pressure Position Supine 03/15/22 09:04 Pulse Oximetry 97 03/15/22 09:04 Oxygen Delivery Method 03/15/22 09:04 Vital Signs Temperature 97.6 F 03/15/22 09:04 Pulse Rate 87 03/15/22 09:04 Respiratory Rate 18 03/15/22 09:04 Blood Pressure 120/82 03/15/22 09:04 Pulse Oximetry 97 03/15/22 09:04 Oxygen Delivery Method 03/15/22 09:04 Temperature 97.6 F 03/15/22 09:04 Pulse Rate 66 03/15/22 11:24 Respiratory Rate 18 03/15/22 11:24 Blood Pressure 114/81 03/15/22 11:24 Pulse Oximetry 96 03/15/22 11:24 Oxygen Delivery Method 03/15/22 11:24 MDM - Abdominal Pain MDM Narrative Medical decision making narrative: Urine unconvincing. Pelvic ultrasound stone and per tech report noting a dominant follicle but otherwise unremarkable. Over-read was pending at time of departure. Asking for something more for pain on departure. Prefered departure as opposed to more extensive workup at this time. Medical Records Attestation: I reviewed the patient's medical records. Lab Data Attestation: I reviewed the patient's lab results. Labs: Lab Results 03/15/22 Range/Units 09:38 Urine Color Yellow (Yellow) Urine Appearance Clear (Clear) Urine pH 5.5 (5.0-8.5) Ur Specific [place] >= 1.030 (1.000-1.030) Urine Protein Negative (Negative) Urine Glucose (UA) Negative (Negative) Urine Ketones Trace A (Negative) Urine Blood Negative (Negative) Urine Nitrite Negative (Negative) Urine Bilirubin Negative (Negative) Urine Urobilinogen 0.2 (0.2-1.0) Ur Leukocyte Esterase Negative (Negative) Urine RBC 0-2 (0-2) Urine WBC 0-2 (0-5) Ur Squamous Epith Cells Few (None-Few) Other Sediment MODERATE YEAST (None) Urine Bacteria Moderate A (None) Urine Mucus Many A (None) Discharge Plan Discharge Clinical Impression: Pelvic pain Patient Disposition: Home, Self-Care Condition: Improved Additional Instructions: Stay hydrated. Radiology over-read is pending on your imaging but I spoke with the tech today and she indicates a dominant follicle. I suppose this could be oozing a little bit contributing to your pain. I will let you know if the over read indicates something different of significance. As I said we have not ruled out the bigger things. You have had a lot of imaging. If pain seems to be escalating there particularly if accompanied by fever or recurrent vomiting, do return. Pain persisting like this for more than 4 days then I would follow up at that point for possible re-evaluation. Prescriptions: No Action bupropion HCl 300 mg tablet extended release 24 hr 300 mg PO DAILY albuterol sulfate 90 mcg/actuation HFA aerosol inhaler 2 puff inhalation Q4-6H PRN fluticasone furoate-vilanterol 200-25 mcg/dose blister with device See Rx Instructions inhalation DAILY Rx Instructions: 1 puff inhalation daily; Tylenol ibuprofen dicyclomine 10 mg capsule 10 mg PO QID PRNQty: 20 2RF sertraline 100 mg tablet 100 mg PO DAILY Qty: 90 0RF trazodone 100 mg tablet 250 mg PO QHS Qty: 225 0RF omeprazole 20 mg capsule,delayed release(DR/EC) 20 mg PO QDAY Qty: 90 0RF Follow Up/Referrals: Danny Hernández MD [Primary Care Provider] - Stand Alone Forms: [facility] Info Instructions
== END 2022-03-15 13:58 | disposition home or self-care (01) ==
PROVIDERS: Emergency Provider Family Medicine; PCP Family Medicine; Referring Provider Family Medicine; Visit Provider Family Medicine
DX: R10.2 Pelvic and perineal pain (principal)
CPT/HCPCS: 76830; 76856; 81001; 87086; 93976; 99283; 99284; A9270; J1170

== ENCOUNTER 2022-03-21 16:08 | Emergency (ER) | payer BC, SELFPAY ==
[2022-03-21 16:14] VITALS: BP 123/78; PULSE 103; RESP 20; TEMP 36.1; O2SAT 96; BMI 30.7
--- NOTE | 2022-03-21 16:45 | ED_ITS ---
HPI - General Adult General Time Seen by Provider: 16:45 Date Seen: 03/21/22 Chief complaint: Abdominal Pain Stated complaint: Severe Abdominal Pain Time Seen by Provider: 03/21/22 16:27 Source: patient, RN notes reviewed and old records reviewed Mode of arrival: ambulatory Limitations: no limitations History of Present Illness HPI narrative: 42-year-old female with history of chronic abdominal pain presents with abdominal pain. She complains of right-sided abdominal pain for the past week, which she was seen a couple days ago. At that time labs reassuring and pelvic ultrasound demonstrated a dominant follicle on the right but no other findings. Pain is been constant since then, sharp worse than labor pains. ? Patient has been constipated, feels that her abdomen is distended. No nausea vomiting, no fever. Has been taking Tylenol and ibuprofen for this with minimal relief. No relieving factors or exacerbating factors Review of chart shows multiple emergency department visits for pain, with negative lab and radiologic evaluations. Related Data Home Medications Medication Instructions Recorded Confirmed albuterol sulfate 90 mcg/actuation 2 puff inhalation Q4-6H PRN 10/12/21 03/21/22 aerosol inhaler bupropion HCl 300 mg 24 hr tablet, 300 mg PO DAILY 10/12/21 03/21/22 extended release fluticasone furoate 200 See Rx Instructions inhalation 10/12/21 03/21/22 mcg-vilanterol 25 mcg/dose DAILY inhalation powder Tylenol 01/31/22 03/21/22 ibuprofen 01/31/22 03/21/22 Previous Rx's Medication Instructions Recorded sertraline 100 mg tablet 100 mg PO DAILY #90 tabs 12/19/21 omeprazole 20 mg capsule,delayed 20 mg PO QDAY #90 caps 01/18/22 release trazodone 100 mg tablet 250 mg PO QHS #225 tabs 01/18/22 dicyclomine 10 mg capsule 10 mg PO QID PRN #20 caps 03/21/22 Allergies Allergy/AdvReac Type Severity Reaction Status Date / Time hydrocodone Allergy Intermediate itchy Verified 03/21/22 10:40 Review of Systems Status of ROS: Reports: 10 or more systems reviewed and unremarkable except as noted in History and below [facility] Medical History (Updated 03/21/22 @ 18:51 by Quintin Sawant MD) Chronic abdominal pain Chronic interstitial cystitis Cyst of left ovary Cyst of right ovary Essential tremor (08/16/07) Gastroesophageal reflux disease (06/16/08) Generalized anxiety disorder History of abnormal cervical Papanicolaou smear History of COVID-19 Insomnia (01/07/14) Menorrhagia Moderate episode of recurrent major depressive disorder (02/23/07) Restless legs syndrome (03/25/12) Surgical History History of laparoscopy History of tubal ligation Status post laparoscopic hysterectomy Family History Other ASCVD (arteriosclerotic cardiovascular disease) Diabetes Social History Narrative: josé luis smoker Smoking Status: Current every day smoker Do you use any of these nicotine containing products: None Second hand tobacco smoke exposure: No How often do you have a drink containing alcohol: monthly or less AUDIT-C Alcohol total score: 1 Non-prescribed substance use: marijuana (any form) Non-prescribed substance use details: edibles, not very often, twice a week Caffeine: No Little interest or pleasure in doing things: several days Feeling down, depressed, or hopeless: nearly every day service: No Exam Narrative: Exam Narrative: General: Well-developed and well-nourished, no acute distress Head: Atraumatic and normocephalic Eyes: Pupils are equal reactive, extraocular motions intact, conjunctiva clear ENT: External nose and ears are normal, posterior pharynx without erythema or exudate Neck: No midline cervical tenderness, full spontaneous range of motion the neck, trachea midline, no adenopathy Heart: Regular rate and rhythm no murmurs or thrills Lungs: Clear to auscultation bilaterally without wheezes or crackles Abdomen: Mild distention without tenderness Musculoskeletal: No tenderness, deformity, or edema Neurologic: Awake, alert, and oriented x3, no gross focal neurologic deficits, cranial nerves intact as tested Psych: Mood and affect are appropriate Skin: No rashes Const: Vital Signs, click to edit/add: Vital Signs - 24 hr 03/21/22 16:14 03/21/22 18:52 Temperature 96.9 F L Pulse Rate [Pulse Oximeter] 103 H 73 Respiratory Rate 20 18 Blood Pressure [Ri ght Upper Arm] 123/78 113/70 Pulse Oximetry 96 95 Oxygen Delivery Me thod Room Air Course Course Hospital Course: Patient seen examined, prior records are reviewed. Differential diagnosis includes but not limited to chronic abdominal pain, endometriosis ovarian cyst, ovarian torsion, appendicitis, nephrolithiasis, urinary tract infection, pyelonephritis. Patient presents with acute on chronic abdominal pain, multiple emergency department visits for this and review of outside records shows the keegan umanzor has a long history of this. Labs and noncontrast CT scan are ordered, Toradol and Bentyl ordered for pain Reevaluation(s) Reevaluation #1: Labs are reassuring including normal white blood cell count, normal LFTs other than slightly elevated AST. Patient is given fentanyl IV to help with pain with some improvement. CT scan personally reviewed and interpreted by me demonstrates a right ovarian cyst her phone glued acute findings, radiology interpretation agrees. Patient has not provided a urine sample yet, she has no urinary symptoms and has recent UA which is negative. Patient stable discharge with outpatient follow-up. She will be discharged with Bentyl and Zofran. Time: 18:49 Vital Signs Vital signs: Initial Vital Signs Temperature 96.9 F L 03/21/22 16:14 Temperature Source Temporal Artery Scan 03/21/22 16:14 Pulse Rate 103 H 03/21/22 16:14 Respiratory Rate 20 03/21/22 16:14 Blood Pressure 123/78 03/21/22 16:14 Blood Pressure Mean 93 03/21/22 16:14 Blood Pressure Position Supine 03/21/22 16:14 Pulse Oximetry 96 03/21/22 16:14 Oxygen Delivery Method 03/21/22 16:14 Vital Signs Temperature 96.9 F L 03/21/22 16:14 Pulse Rate 103 H 03/21/22 16:14 Respiratory Rate 20 03/21/22 16:14 Blood Pressure 123/78 03/21/22 16:14 Pulse Oximetry 96 03/21/22 16:14 Oxygen Delivery Method 03/21/22 16:14 Temperature 96.9 F L 03/21/22 16:14 Pulse Rate 73 03/21/22 18:52 Respiratory Rate 18 03/21/22 18:52 Blood Pressure 113/70 03/21/22 18:52 Pulse Oximetry 95 03/21/22 18:52 Oxygen Delivery Method 03/21/22 16:14 Medical Decision Making Medical Records Medical records reviewed: Yes I reviewed the patient's medical records Lab Data Lab results reviewed: Yes I reviewed the patient's lab results Labs: Lab Results 03/21/22 03/21/22 03/21/22 Range/Units 17:30 17:30 17:30 WBC 8.17 (4.50-11.00) K/uL RBC 4.27 (4.00-5.20) m/uL Hgb 13.0 (12.0-16.0) gm/dL Hct 38.4 (33.0-51.0) % MCV 90 (80-100) fL MCH 30 (26-34) pg MCHC 34 (32-36) gm/dL RDW Coeff of Jose Alberto 12.8 (11.5-15.5) % Plt Count 240 (140-440) K/uL Neut % (Auto) 77.0 H (42.0-72.0) % Lymph % (Auto) 15.7 L (20-44) % [place] % (Auto) 6.1 (0.0-11.0) % Eos % (Auto) 0.6 (0.0-7.0) % Baso % (Auto) 0.1 (0.0-3.0) % Neut # (Auto) 6.30 (1.7-7.0) K/uL Lymph # (Auto) 1.30 (0.90-2.90) K/uL [place] # (Auto) 0.50 (0.00-0.90) K/UL Eos # (Auto) 0.05 (0.00-0.50) K/uL Baso # (Auto) 0.01 (0.00-0.30) K/uL Abs Immat Gran (auto) 0.04 (0.00-0.30) K/uL Imm/Tot Granulo (auto) 0.5 % Sodium 138 (135-149) mmol/L Potassium 4.3 (3.6-5.1) mmol/L Chloride 109 (96-114) mmol/L Carbon Dioxide 23 (20-32) mmol/L BUN 16 (5-24) mg/dL Creatinine 0.7 (0.5-1.5) mg/dL Estimated Creat Clear 100.01 Estimated GFR 112 ml/min Glucose 87 (60-115) mg/dL Lactate 0.7 (0.5-1.9) mmol/L Calcium 8.8 (8.4-10.6) mg/dL Total Bilirubin 0.3 (0.1-1.5) mg/dL Direct Bilirubin 0.1 (0.0-0.5) mg/dL AST 29 (12-35) U/L ALT 40 H (4-35) U/L Alkaline Phosphatase 64 (40-150) U/L Total Protein 6.9 (6.0-8.3) g/dL Albumin 4.3 (3.3-5.0) g/dL Lipase 61 (23-300) U/L Discharge Plan Discharge Clinical Impression: Pelvic pain Patient Disposition: Home, Self-Care Condition: Stable Instructions: Pelvic Pain in Women (ED) Additional Instructions: Continue Tylenol ibuprofen as needed for pain, take Bentyl as needed for more severe pain. Follow-up with your primary care doctor. Activity Level: No Restrictions Discharge Diet: Regular Prescriptions: New dicyclomine 10 mg capsule 10 mg PO QID PRNQty: 20 2RF No Action bupropion HCl 300 mg tablet extended release 24 hr 300 mg PO DAILY albuterol sulfate 90 mcg/actuation HFA aerosol inhaler 2 puff inhalation Q4-6H PRN fluticasone furoate-vilanterol 200-25 mcg/dose blister with device See Rx Instructions inhalation DAILY Rx Instructions: 1 puff inhalation daily; Tylenol ibuprofen sertraline 100 mg tablet 100 mg PO DAILY Qty: 90 0RF trazodone 100 mg tablet 250 mg PO QHS Qty: 225 0RF omeprazole 20 mg capsule,delayed release(DR/EC) 20 mg PO QDAY Qty: 90 0RF Follow Up/Referrals: Danny Hernández MD [Primary Care Provider] - Stand Alone Forms: [employer] Info Instructions
--- NOTE | 2022-03-21 16:58 | CRLHL7_ITS ---
For Patients: As a result of the Century Cures Act, medical imaging exams and procedure reports are released immediately into your electronic medical record. You may view this report before your referring provider. If you have questions, please contact your health care provider. INDICATION: Right lower quadrant/suprapubic pain. TECHNIQUE: CT abdomen and pelvis without contrast. COMPARISON: CT abdomen and pelvis 01/31/2022. FINDINGS: Lower chest: Mild bilateral dependent atelectasis. Liver: Normal in size and attenuation. No suspicious masses. Gallbladder and bile ducts: No stones or inflammation. No biliary dilatation. Pancreas: Unremarkable. No mass or inflammation. Spleen: Normal in size. No masses. Adrenal glands: Normal in size. No nodules. Kidneys: Normal in size. No suspicious masses, stones, or hydronephrosis. GI tract: Few scattered colonic diverticula. Normal in caliber. No sign of mass or inflammation. Normal appendix. Vasculature: Abdominal aorta is normal in caliber. Lymph nodes: No lymphadenopathy. Peritoneum/Abdominal Wall: Unremarkable. No sign of mass or infiltration. No free air or significant free fluid. Pelvis: 2.7 cm cyst versus follicle within the right ovary. Bones: Unremarkable for age. IMPRESSION: No acute findings within the abdomen and pelvis. Normal appendix. 2.7 cm cyst versus follicle within the right ovary. Per imaging guidelines, no follow-up/further imaging of this is recommended. Please note that all CT scans at this facility use dose modulation, iterative reconstruction, and/or weight-based dosing when appropriate to reduce radiation dose to as low as reasonably achievable. Dictated by Robbie Chen MD @ 03/21/2022 6:45:02 PM (Electronically Signed)
--- OUTSIDE RECORDS SUMMARY | 2022-03-21 17:01 | XMS_ITS | Encounter Summary ---
:1980 Author Organization [place] Address [address] [place] [address] Care Team Providers Name Role Phone Ratna Mackey MD Primary Care Provider Reason for Visit Reason Comments Dizziness Encounter Details Date Type Department Care Team Description 09/22/2015 [facility] Shon Patel Internal hemorrhoid, bleeding; [facility] Emergency MD [facility] Dept [facility] [address] [place], [place] [address] [employer] [id number] [place] [address] [place] [address] (Wo rk) Social History Tobacco [...] canal. This can be due to: ?? [phone] [employer]. [address] [place] [address], [place] [address]. All rights reserved. This information is not [...] peggy. These are available at most drugstores. [id number] hemorrhoid ointments and petroleum jelly can also [...] plenty of water when you exercise. ?? [phone] [employer]. [address] [place] [address]. All rights reserved. This information is not [...] Place rectally At Bedtime Andres Miller 09/22/2015 [facility] EMERGENCY DEPARTMENT I, Andres Miller, am [...] athologist Signature Sodium 140 133 - 144 [place] mmol/L [facility] Potassium 3.8 3.4 - 5.3 [place] mmol/L [facility] Chloride 108 94 - 109 [place] mmol/L [facility] Carbon Dioxide 25 20 - 32 [place] mmol/L [facility] Anion Gap 7 3 - 14 [place] mmol/L [facility] Glucose 115 (H) 70 - 99 [place] mg/dL [facility] Urea Nitrogen 10 7 - 30 [place] mg/dL [facility] Creatinine 0.92 0.52 - [place] 1.04 mg/dL [facility] GFR Estimate 70 >60 [place] mL/min/1.[address] Comment: Non GFR Calc GFR Estimate If Black 84 >60 mL/min/1.7m2 F [facility] Comment: GFR Calc Calcium 9.1 8.5 - 10.1 mg/dL [facility] Specimen Anatomical Collection Method Collection Time Receive d Time (Source) Location / / Volume Laterality Blood specimen 09/22/2015 1:40 PM 016 1:43 (specimen) CDT PM CDT Shon Patel MD LAB - BLOOD ORDERABLES Performing Organization Address City/State/ZIP Code Phon e Number [place] [address] [address] [place] [address] [facility] [address] [phone] CBC with platelets differential (09/22/2015 1:40 PM CDT) Patholo gist Method Time Signature WBC 7.3 4.0 - [place] 11.0 [facility] 10e9/L [facility] RBC Count 4.99 3.8 - 5.2 [place] 10e12/L [facility] Hemoglobin 15.1 11.7 - [place] 15.7 g/dL [facility] Hematocrit 42.7 35.0 - [place] 47.0 % [facility] MCV 86 78 - 100 [facility] MCH 30.3 26.5 - [place] 33.0 pg [facility] MCHC 35.4 31.5 - [place] 36.5 g/dL [facility] RDW 12.7 10.0 - [place] 15.0 % [facility] Platelet Count 254 150 - [address] Diff Method Automated [facility] % Neutrophils 71.6 % [facility] % Lymphocytes 19.4 % [facility] % Monocytes 7.3 % [facility] % Eosinophils 1.0 % [facility] % Basophils 0.4 % [facility] % Immature 0.3 % [place] Granulocytes [facility] Nucleated RBCs 0 0 /100 [facility] Absolute 5.2 1.6 - 8.3 [place] Neutrophil [address] [place] [address] Absolute 1.4 0.8 - 5.3 [place] Lymphocytes [address] [place] [address] Absolute 0.5 0.0 - 1.3 [place] Monocytes [address] [place] [address] Absolute 0.1 0.0 - 0.7 [place] Eosinophils [address] [place] [address] Absolute 0.0 0.0 - 0.2 [place] Basophils [address] [place] [address] Abs Immature 0.0 0 - 0.4 [place] Granulocytes [address] [place] [address] Absolute 0.0 [place] Nucleated RBC [facility] Specimen Anatomical Collection Method Collection Time Receive d Time (Source) Location / / Volume Laterality Blood specimen 09/22/2015 1:40 PM 016 1:43 (specimen) CDT PM CDT Shon Ptael MD LAB - BLOOD ORDERABLES Performing Organization Address City/State/ZIP Code Phon e Number M [facility] [address] [place] [address] [facility] [address] [phone] documented in this encounter Visit Diagnoses Diagnosis [...] override documented in this encounter Care Teams Production Reproduction Manager Relationship Specialty Start Date End Date Ratna Mackey MD PCP - General Family Practice 03/07/15 12/29/20 [facility] [address] [place] [address] documented as of this encounter
--- OUTSIDE RECORDS SUMMARY | 2022-03-21 17:01 | XMS_ITS | Encounter Summary ---
:1980 Author Organization [place] Address [address] [place] [address] Care Team Providers Name Role Phone [facility] Primary Care Provide r Encounter [...] on filedocumented in this encounter Care Teams Utilization Review Coordinator Relationship Specialty Start Date End Date [facility] PCP - General 12/30/201999 [facility] [place] [address] documented as of this encounter
--- OUTSIDE RECORDS SUMMARY | 2022-03-21 17:01 | XMS_ITS | Encounter Summary ---
:1980 Author Organization [place] Address [address] [place] [address]. [place] [address] Care Team Providers Name Role Phone Ratna Mackey MD Primary Care Provider Reason for Visit Reason Comments Other patient complaining of breas t pain Encounter Details Date Type Department Care Team Description 01/15/2016 Emergency [facility] Shahram Renteria, Cellulitis of right [facility] DO breast [address] [facility] [address] [address] [phone] [place], [place] [address] (Wo rk) Social History Tobacco Use Types [...] are in pain. Ask what kind of ynlx-jfv-ihzvthc medication you can takefor pain. ?? Apply [...] or pus draining from the area ?? [phone] [employer] [place] [address], [place] [address]. All rights reserved. This information is not [...] R-0, Local Print Shahram Renteria D.O. 01/15/2016 [facility] EM[facility] Shahram Renteria DO 01/16/16 [...] / Laterality Volume Impressions 03/12/2016 7:49 AM GAUGE INSPECTOR IMPRESSION: BI-RADS CATEGORY: 1 - ??Negative. RECOMMENDED FOLLOW-UP: Clinical follow-u hollis MCDOWELL MD Narrative 03/12/2016 7:49 AM GAUGE INSPECTOR DIAGNOSTIC ULTRASOUND RIGHT BREAST, 03/12/2016 7:49 AM. [...] dose documented in this encounter Care Teams Transformation Manager Relationship Specialty Start Date End Date Ratna Mackey MD PCP - General Family Practice 03/07/15 12/29/20 [facility] [address] [facility] [place] [address] documented as of this encounter
--- OUTSIDE RECORDS SUMMARY | 2022-03-21 17:01 | XMS_ITS | Encounter Summary ---
:1980 Author Organization [place] Address [address] [place] [address] Care Team Providers Name Role Phone Clinic, [facility] [place] Primary Care Provide r Reason for Visit Reason Comments Shoulder Pain Encounter Details Date Type Department Care Team Description 12/30/2020 Emergency [facility] Quintin Houser, Jairo confederated salish pain of left shoulder (Primary Dx); [facility] Emergency Dep t MD Darling, initial encounter [address] [facility] [place] [address] [address] [phone] [address] [place], [place] [address] (Wo rk) Social History Tobacco Use Types [...] follow up in about one week with [facility] for rotator cuff evaluation. AttachmentsThe following attachments cannot be sent through Care Everywhere.RICE (Norwegian)Shoulder Immobilizer (Norwegian)documented in this encounter Medications at Time of [...] for muscle relaxation. Re commended follow-up with [facility] orthopedics as an outpatient for [...] Houser MD Roach, Brian Donald, MD 12/30/20 2112 Gloria Child MD - 12/30/2020 5:09 PM [...] with shoulder immobilizer, recommend follow up with [facility] in about a week for further evaluation. Interventions: Medications ketorolac (TORADOL) injection 15 mg (15 mg Intravenous Given 12/30/201825) cyclobenzaprine (FLEXERIL) tablet 10 mg (10 mg Oral Given 12/30/201825) acetaminophen (TYLENOL) tablet 975 mg (975 mg Oral Given 12/30/202034) oxyCODONE (ROXICODONE) tablet 5 mg (5 mg Oral Given 12/30/202034) Disposition: Discharge to home with follow up at [facility]. Impression & Plan Medical Decision Making: [...] and would benefit from outpatient evaluation with [facility]. She will be discharged [...] XR WRIST LEFT G/E 3 VIEWS LOCATION: [facility] DATE/TIME: 12/30/2020 7:48 PM INDICATION: fall with pop and wrist limi heather ROM COMPARISON: None. Procedure Note Galan, Shon Benjy, MD - 12/30/2020F ormatting of this note might be different from the original. EXAM: XR WRIST LEFT G/E 3 VIEWS LOCATION: [facility] DATE/TIME: 12/30/2020 7:48 PM INDICATION: fall with pop and wrist limi heather ROM COMPARISON: None. IMPRESSION: Normal joint spaces and alig nment. No fracture. Gloria Child MD [facility] [place] ORD ERABLES [...] XR SHOULDER LEFT G/E 3 VIEWS LOCATION: [facility] DATE/TIME: 12/30/2020 7:23 PM INDICATION: fell with pop and pain with ROM COMPARISON: None. Procedure Note Shon Galan MD - 12/30/2020F ormatting of this note might be different from the original. EXAM: XR SHOULDER LEFT G/E 3 VIEWS LOCATION: [facility] DATE/TIME: 12/30/2020 7:23 PM INDICATION: fell with pop and pain with ROM COMPARISON: None. IMPRESSION: Normal joint spaces and alig nment. No fracture. Gloria Child MD [facility] [place] ORD ERABLES [...] XR ELBOW LEFT G/E 3 VIEWS LOCATION: [facility] DATE/TIME: 12/30/2020 7:22 PM INDICATION: Fall with limited ROM at L e lbow COMPARISON: None. Procedure Note Shon Galan MD - 12/30/2020F ormatting of this note might be different from the original. EXAM: XR ELBOW LEFT G/E 3 VIEWS LOCATION: [facility] DATE/TIME: 12/30/2020 7:22 PM INDICATION: Fall with [...] dose documented in this encounter Care Teams Natural Gas Technician Relationship Specialty Start Date End Date [facility], [facility] [place] PCP - General 12/30/[address] [place] [address] documented as of this encounter
--- OUTSIDE RECORDS SUMMARY | 2022-03-21 17:01 | XMS_ITS | Encounter Summary ---
:1980 Author Organization [place] Address [address] [place] [address] Care Team Providers Name Role Phone Ratna Mackey MD Primary Care Provider Reason for Visit Reason Comments Abdominal Pain Encounter Details Date Type Department Care Team Description 03/07/2015 Emergency [facility] Luis Villatoro Ch ronic pelvic pain [facility] in female [address] [facility] [place] [address] [address] [phone] [address] [place], [place] [address] (Wo rk) Social History Tobacco Use Types Packs/Day Years Used Date Smoking Tobacco: Some Days Cigarettes 0.3 Alcohol Use Standard Drinks/Week Comments No 0 (1 standard drink = 0.6 oz pure alcoho l) Sex Assigned at Date Recorded Not on file documented as of this encounter Last Filed Vital Signs Vital Sign Reading Time Taken Comments Blood Pressure 117/92 03/07/2015 3:54 PM ACTIONSCRIPT DEVELOPER Pulse 75 03/07/2015 3:54 PM ACTIONSCRIPT DEVELOPER Temperature 37.2 ??C (98.9 ??F) 03/07/2015 3:54 PM ACTIONSCRIPT DEVELOPER Respiratory Rate 20 03/07/2015 3:54 PM ACTIONSCRIPT DEVELOPER Oxygen Saturation 99% 03/07/2015 3:54 PM ACTIONSCRIPT DEVELOPER Inhaled Oxygen Concentration - - Weight 77.6 kg (171 lb) 03/07/2015 3:54 PM ACTIONSCRIPT DEVELOPER Height 167.6 cm (5' 6) 03/07/2015 3:54 PM ACTIONSCRIPT DEVELOPER Body Mass Index 27.6 03/07/2015 3:54 PM ACTIONSCRIPT DEVELOPER documented in this encounter Discharge Instructions Discharge [...] if there is anything that worries you. ONSCRIPT DEVELOPER documented in this encounter Medications at Time [...] she was last seen here at [facility] one month ago at which time it [...] reviewed. I reviewed the patient's chart in [employer]. 161 - I performed an exam of [...] observations and the provider's statements to me. [facility] EMERGENCY DEPARTMENT Luis Villatoro MD 03/08/15 1257 ONSCRIPT DEVELOPER Natalia Coon RN - 03/07/2015 3:52 PM CST Lower left abdominal pain that began about 1 year ago. Nauseated but no vomiting. Ibuprofen taken at9am. Patient alert and oriented x3. Airway, breathing and circulation intact. ONSCRIPT DEVELOPER documented in this encounter Plan of Treatment Not on filedocumented as of this encounter Procedures Procedure Name Priority Date/Time Associated Comments Diagnosis HCG QUALITATIVE URINE STAT 03/07/2015 4:05 PM Chronic pelvi c pain Results for this ACTIONSCRIPT DEVELOPER in female procedure are i n the results section. ROUTINE UA WITH STAT 03/07/2015 4:05 PM Chronic pelvic pain Results for this MICROSCOPIC ACTIONSCRIPT DEVELOPER in female procedure are i n the results section. documented in this encounter Results HCG qualitative urine (03/07/2015 4:05 PM ACTIONSCRIPT DEVELOPER) P athologist Signature HCG Qual Urine Negative NEG [facility] Specimen Anatomical Collection Method Collection Time Receive d Time (Source) Location / / Volume Laterality Urine specimen URINE SPECIMEN 03/07/2015 4:05 PM 03/07 4:14 (specimen) OBTAINED BY CLEAN ACTIONSCRIPT DEVELOPER PM ACTIONSCRIPT DEVELOPER CATCH PROCEDURE / Unknown Luis Villatoro MD LAB - URINE ORDERABLES Performing Organization Address City/State/ZIP Code Phon e Number [facility] [address] [place], [place] [address] [facility] [address] [place] [address] [phone] (ABNORMAL) Routine UA with microscopic (03/07/2015 4:05 PM ACTIONSCRIPT DEVELOPER) [facility] Method Time Signature Color Urine Light Yellow [facility] Appearance Urine Clear [facility] Glucose Urine Negative NEG mg/dL [facility] Bilirubin Urine Negative NEG [facility] Ketones Urine Negative NEG mg/dL [facility] Specific [place] 1.018 1.003 - [place] Urine 1.035 [facility] Blood Urine Negative NEG [facility] pH Urine 6.0 5.0 - 7.0 [facility] Protein Albumin Negative NEG mg/dL [facility] Urobilinogen Normal 0.0 - 2.0 [place] mg/dL mg/dL [facility] Nitrite Urine Negative NEG [facility] Leukocyte Small (A) NEG [place] Esterase Urine [facility] Source Midstream [facility] WBC Urine 1 0 - 2 [place] /HPF [facility] RBC Urine 1 0 - 2 [place] /HPF [facility] Bacteria Urine Few (A) NEG /HPF [facility] Squamous 3 (H) 0 - 1 [place] Epithelial /HPF /HPF [facility] Mucous Urine Present (A) NEG /LPF [facility] Specimen Anatomical Collection Method Collection Time Receive d Time (Source) Location / / Volume Laterality Urine specimen URINE SPECIMEN 03/07/2015 4:05 PM 03/07 4:14 (specimen) OBTAINED BY CLEAN ACTIONSCRIPT DEVELOPER PM ACTIONSCRIPT DEVELOPER CATCH PROCEDURE / Unknown Luis Villatoro MD LAB - URINE ORDERABLES Performing Organization Address City/State/ZIP Code Phon e Number M [facility] [address] [place], [place] [address] [facility] [address] [place] [address] [phone] documented in this encounter Visit Diagnoses Diagnosis Chronic pelvic pain in female Unspecified symptom associated with fema le genital organs documented in this encounter Administered Medications Inactive Administered Medications - up to 3 most recent administrations Medication Order MAR Action Action Date Dose Rate Site oxyCODONE-acetaminophen Given 03/07/2015 4:17 PM ACTIONSCRIPT DEVELOPER 2 tablets (PERCOCET) 5-325 MG per tablet 2 tablet 2 tablet, Oral, ONCE, On Fri03/07/15 at 1616, For 1 dose, Maximum acetaminophen dose from all sources= 75 mg/kg/day not to exceed 4 grams documented in this encounter Active and Recently Administered Medications Times are shown in ACTIONSCRIPT DEVELOPER. Scheduled Medication Order 03/05/2015 03/06/2015 03/07/2015 oxyCODONE-acetaminophen (PERCOCET) 5-325 MG per tablet 2 tablet (COMPLETED) 1617 (Given - Provider: Fadi Ledezma RN) 2 tablet, Oral, ONCE, Fri03/07/15 at 16 16, For 1 dose, Maximum acetaminophen dose from all sources= 75 mg/kg/day not to exceed 4 grams documented in this encounter Care Teams Epoxy Coatings Installer Relationship Specialty Start Date End Date Ratna Mackey MD PCP - General Family Practice 03/07/15 12/29/20 [facility] [address] [address] [place] [address] documented as of this encounter
--- OUTSIDE RECORDS SUMMARY | 2022-03-21 17:01 | XMS_ITS | Clinical Summary ---
:1980 Author Organization [place] Address [address] [place] [address] Care Team Providers Name Role Phone Clinic, [place] Primary Care Provide r Allergies Active Allergy [...] ss Type Group BCBS BCBS OUT OF [id number] 2019-Present [phone] [address] [address] [place] [address] [phone] 6 (Home) none (Work) Dante WILSON [address] Care Teams Putty Tinter Maker Relationship Specialty Start Date End Date Clinic, [facility] Medical PCP - General 12/30/201999 [place] [address]
--- OUTSIDE RECORDS SUMMARY | 2022-03-21 17:01 | XMS_ITS | Encounter Summary ---
:1980 Author Organization [place] Address [address] [place] [address] Care Team Providers Name Role Phone [facility] Primary Care Provide r Encounter Details Date [...] on filedocumented in this encounter Care Teams Mottler Operator Relationship Specialty Start Date End Date [facility] PCP - General 12/30/201999 [facility] [place] [address] documented as of this encounter
--- OUTSIDE RECORDS SUMMARY | 2022-03-21 17:01 | XMS_ITS | Encounter Summary ---
:1980 Author Organization [place] Address [address] [place] [address] Care Team Providers Name Role Phone Ratna [...] 03/24/2000 12:00 AM Re sults for this FOREIGN CORRESPONDENT procedure are i n the results section. documented in this encounter Results XR Abdomen 2 Views (03/24/2000 12:00 AM FOREIGN CORRESPONDENT) Anatomical Region Laterality Modality Abdomen/Pelvis Other Specimen (Source) Anatomical Location Collection Method / Collectio n Time Received Time / Laterality Volume Narrative 03/24/2000 12:00 AM FOREIGN CORRESPONDENT See Historical Hospital Medical Record f or documentation Procedure Note Provider, Historical - 09/05/2020Formatt ing of this note might be different from the original. See Historical Hospital Medical Record f or documentation Historical Provider IMG DIAGNOSTIC IMAGING ORDER BRIDGETT documented in this encounter Visit Diagnoses Not on filedocumented in this encounter Care Teams Boathouse Keeper Relationship Specialty Start Date End Date Ratna Mackey MD PCP - General Family Practice 03/07/15 12/29/20 [facility] [id number] [place] [id number] documented as of this encounter
--- OUTSIDE RECORDS SUMMARY | 2022-03-21 17:01 | XMS_ITS | Encounter Summary ---
:1980 Author Organization [place] Address [address] [place] [address] Care Team Providers Name Role Phone Ratna Mackey MD Primary Care Provider Reason for Visit Reason Comments Constipation Encounter Details Date Type Department Care Team Description 11/13/2015 Emergency [facility] Krysta Pantoja MD Constipation, [facility] Emergency Dep t [facility]ANS unspecified [address] constipation type [place], [place] [address] [facility] [address] [place] [address] [phone] (Wo rk) Social History Tobacco Use Types [...] contain Tylenol?? (acetaminophen), including Vicodin??, Tylenol #3??, [place]??, Lortab??, and Percocet??. You should not take [...] CDT Enema completed per Kelly Burr, nursing r d intern with supervision. Lab currently drawing specimens, [...] WNL HCG Qualitative Urine: Negative Interventions: 2025 [place] Lady Enema 186mL Rectal Emergency Department Course: [...] and the provider's statements to me. 11/13/2015 [facility] EMERGENCY DEPARTMENT Krysta Pantoja MD 11/14/15 1228 Courtney Alfredo RN - 11/13/2015 6:42 PM [...] Signature HCG Qual Urine Negative NEG [facility] Specimen Anatomical Collection Method Collection Time Receive d Time (Source) Location / / Volume Laterality Urine specimen URINE SPECIMEN 11/13/2015 8:25 PM 11/12 8:48 (specimen) OBTAINED BY CLEAN CDT PM CDT CATCH PROCEDURE / Unknown Krysta Pantoja MD LAB - URINE ORDERABLES Performing Organization Address City/State/ZIP Code Phon e Number M [facility] [address] [place], [place] [address] [facility] [address] [place] [address] [phone] UA with Microscopic (11/13/2015 8:25 PM CDT) [facility] Method Time Signature Color Urine Straw [facility] Appearance Urine Slightly [place] Cloudy [facility] Glucose Urine Negative NEG mg/dL [facility] Bilirubin Urine Negative NEG [facility] Ketones Urine Negative NEG mg/dL [facility] Specific [place] 1.006 1.003 - [place] Urine 1.035 [facility] Blood Urine Negative NEG [facility] pH Urine 7.0 5.0 - 7.0 [place] pH [facility] Protein Albumin Negative NEG mg/dL [facility] Urobilinogen Normal 0.0 - 2.0 [place] mg/dL mg/dL [facility] Nitrite Urine Negative NEG [facility] Leukocyte Negative NEG [place] Esterase Urine [facility] Source Midstream [facility] WBC Urine <1 0 - 2 [facility] RBC Urine 0 0 - 2 [facility] Squamous 1 0 - 1 [facility] Specimen Anatomical Collection Method Collection Time Receive d Time (Source) Location / / Volume Laterality Urine specimen URINE SPECIMEN 11/13/2015 8:25 PM 11/12 8:48 (specimen) OBTAINED BY CLEAN CDT PM CDT CATCH PROCEDURE / Unknown Krysta Pantoja MD LAB - URINE ORDERABLES Performing Organization Address City/State/ZIP Code Phon e Number [facility] [address] [place], [place] [address] [place] [address] [address] [place] [address], [facility] [phone] Lipase (11/13/2015 8:19 PM CDT) P athologist Signature Lipase 93 73 - [address] [facility] U/L [facility] Specimen Anatomical Collection Method Collection Time Receive d Time (Source) Location / / Volume Laterality Blood specimen 11/13/2015 8:19 PM 016 8:26 (specimen) CDT PM CDT Krysta Pantoja MD LAB - BLOOD ORDERABLES Performing Organization Address City/[facility]/ZIP [facility] Phon e Number [facility] [address] [place], [place] [address] [facility] [address] [place] [phone] 7, [facility] [phone] (ABNORMAL) Comprehensive metabolic panel (11/13/2015 8:19 PM CDT) Patholo gist Method Time Signature Sodium 141 133 - 144 [place] mmol/L [facility] Potassium 4.4 3.4 - 5.3 [place] mmol/L [facility] Chloride 109 94 - 109 [place] mmol/L [facility] Carbon Dioxide 27 20 - 32 [place] mmol/L [facility] Anion Gap 5 3 - 14 [place] mmol/L [facility] Glucose 123 (H) 70 - 99 [place] mg/dL [facility] Urea Nitrogen 7 7 - 30 [place] mg/dL [facility] Creatinine 0.63 0.52 - [place] 1.04 [facility] mg/dL [facility] GFR Estimate >90 >60 [place] Non GFR Calc mL/min/1. [place] [address] [facility] GFR Estimate If >90 >60 [place] Black GFR Calc mL/min/1. [place] 7m2 [facility] Calcium 8.7 8.5 - [place] 10.1 [facility] mg/dL [facility] Bilirubin Total 0.3 0.2 - 1.3 [place] mg/dL [facility] Albumin 3.4 3.4 - 5.0 [place] g/dL [facility] Protein Total 6.9 6.8 - 8.8 [place] g/dL [facility] Alkaline 72 40 - 150 [place] Phosphatase U/L [facility] ALT 28 0 - 50 [place] U/L [facility] AST 17 0 - 45 [place] U/L [facility] Specimen Anatomical Collection Method Collection Time Receive d Time (Source) Location / / Volume Laterality Blood specimen 11/13/2015 8:19 PM 016 8:26 (specimen) CDT PM CDT Krysta Pantoja MD LAB - BLOOD ORDERABLES Performing Organization Address City/State/ZIP Code Phon e Number M [facility] [address] [place], [place] [address] [facility] [address] [phone] (ABNORMAL) CBC + differential (11/13/2015 8:19 PM CDT) [facility] Method Time Signature WBC 10.1 4.0 - [facility] 11.0 [facility] 10e9/L [facility] RBC Count 4.81 3.8 - 5.2 [place] 10e12/L [facility] Hemoglobin 14.1 11.7 - [place] 15.7 g/dL [facility] Hematocrit 43.2 35.0 - [place] 47.0 % [facility] MCV 90 78 - 100 [place] fl [facility] MCH 29.3 26.5 - [place] 33.0 pg [facility] MCHC 32.6 31.5 - [place] 36.5 g/dL [facility] RDW 12.9 10.0 - [place] 15.0 % [facility] Platelet Count 256 150 - [address] [place] [address] Diff Method Automated [place] Method [facility] % Neutrophils 83.6 % [facility] % Lymphocytes 10.8 % [facility] % Monocytes 4.6 % [facility] % Eosinophils 0.4 % [facility] % Basophils 0.2 % [facility] % Immature 0.4 % [place] Granulocytes [facility] Nucleated RBCs 0 0 /100 [facility] Absolute 8.4 (H) 1.6 - 8.3 [place] Neutrophil [address] [place] [address] Absolute 1.1 0.8 - 5.3 [place] Lymphocytes [address] [place] [address] Absolute 0.5 0.0 - 1.3 [place] Monocytes [address] [place] [address] Absolute 0.0 0.0 - 0.7 [place] Eosinophils [address] [place] [address] Absolute 0.0 0.0 - 0.2 [place] Basophils [address] [place] [address] Abs Immature 0.0 0 - 0.4 [place] Granulocytes [address] [place] [address] Absolute 0.0 [place] Nucleated RBC [facility] Specimen Anatomical Collection Method Collection Time Receive d Time (Source) Location / / Volume Laterality Blood specimen 11/13/2015 8:19 PM 016 8:26 (specimen) CDT PM CDT Krysta Pantoja MD LAB - BLOOD ORDERABLES Performing Organization Address City/State/ZIP Code Phon e Number M [facility] [address] [place], [place] [address] [facility] [address] [place], [place] [address], [facility] [phone] Abdomen XR, 2 vw, flat and upright [...] contamination. documented in this encounter Care Teams Manga Artist Relationship Specialty Start Date End Date Ratna Mackey MD PCP - General Family Practice 03/07/15 12/29/20 [facility] [address] [facility] [place] [address] documented as of this encounter
--- OUTSIDE RECORDS SUMMARY | 2022-03-21 17:02 | XMS_ITS | Encounter Summary ---
:1980 Author Organization [place] Address [address] [place] [address] Care Team Providers Name Role Phone Jamin Silva MD Primary Care Provider Reason for Visit Reason Comments Abdominal Pain Encounter Details Date Type Department Care Team Description 02/12/2014 Emergency [facility] Ruth Pacheco Abdom inal pain, left lower quadrant (Primary Dx); [employer] Emergency Dep t MD [facility] [address] [facility] [id number] 74[address] [facility] [phone] [place], [place] [address] (Wo rk) Social History [...] directed by your doctor today. Before using xbri-piq-uauwkjp medications, ask your doctor and make sure [...] contain Tylenol?? (acetaminophen), including Vicodin??, Tylenol #3??, [place]??, Lortab??, and Percocet??. You should not take [...] was otherwise unremarkable. She was discharged with [place] forpain, Zofran for nausea, and instructed to follow up with her PMD. The patient states that she was not able to see her doctor at [facility] until 02/15/14. Meanwhile, she has experienced intermittent pain in the left lower quadrant which has worsened since her last visit. It is a sharp, stabbing pain that radiates to the left lower back, worse with walking. She has tried [place] twice without relief and took ibuprofen 800 [...] concerns. Review of Past Medical Records: 02/08/14, [facility] ED CT abdomen and pelvis w/o contrast: [...] through Care Everywhere, as well as the [place] Prescription Monitoring Program. On 01/24/14, she signed a long- term controlled substance agreement for chronic chest, bilateral neck and back pain at [facility]. She has received 13 prescriptions for [...] to me. 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 SCIENTIST documented in this encounter Plan of Treatment [...] Address City/State/ZIP Code Phon e Number M [facility] [address] [place], [place] [address] [facility] (ABNORMAL) UA with Microscopic (02/12/2014 2:44 PM CDT) [facility] gist Method Time Signature Color Urine Straw [facility] Appearance Urine Clear [facility] Glucose Urine Negative NEG mg/dL [facility] Bilirubin Urine Negative NEG [facility] Ketones Urine Negative NEG mg/dL [facility] Specific [place] 1.005 1.003 - [place] Urine 1.035 [facility] Blood Urine Negative NEG [facility] pH Urine 6.5 5.0 - 7.0 [place] pH [facility] Protein Albumin Negative NEG mg/dL [place] Urine [facility] Urobilinogen Normal 0.0 - 2.0 [place] mg/dL mg/dL [facility] Nitrite Urine Negative NEG [facility] Leukocyte Negative NEG [place] Esterase Urine [facility] Source Midstream [place] Urine [facility] WBC Urine 1 0 - 2 [facility] RBC Urine <1 0 - 2 [facility] Bacteria Urine Few (A) NEG /HPF [facility] Squamous <1 0 - 1 [place] Epithelial /HPF /HPF [facility] Mucous Urine Present (A) NEG /LPF [facility] Specimen Anatomical Collection Method Collection Time Receive d Time (Source) Location / / Volume Laterality Urine specimen URINE SPECIMEN 02/12/2014 2:44 PM 02/12 2:51 (specimen) OBTAINED BY CLEAN CDT PM CDT CATCH PROCEDURE / Unknown Ruth Pacheco MD LAB - URINE ORDERABLES Performing Organization Address City/State/ZIP Code Phon e Number [place] [address] [address] [place], [place] [address] [facility] CBC with platelets differential (02/12/2014 2:13 PM CDT) [facility] Method Time Signature WBC 7.0 4.0 - [place] 11.0 [facility] 10e9/L [facility] RBC Count 4.60 3.8 - 5.2 [place] 10e12/L [facility] Hemoglobin 13.6 11.7 - [place] 15.7 g/dL [facility] Hematocrit 40.4 35.0 - [place] 47.0 % [facility] MCV 88 78 - 100 [place] fl [facility] MCH 29.6 26.5 - [place] 33.0 pg [facility] MCHC 33.7 31.5 - [place] 36.5 g/dL [facility] RDW 13.0 10.0 - [place] 15.0 % [facility] Platelet Count 204 150 - [address] [place] [address] [place] [address] LAB Diff Method Automated [facility] % Neutrophils 71.0 % [facility] % Lymphocytes 22.0 % [facility] % Monocytes 6.1 % [facility] % Eosinophils 0.7 % [facility] % Basophils 0.1 % [facility] % Immature 0.1 % [place] Granulocytes [facility] Absolute 5.0 1.6 - 8.3 [place] Neutrophil 10e9/L [facility] Absolute 1.6 0.8 - 5.3 [place] Lymphocytes 10e9/L [facility] Absolute 0.4 0.0 - 1.3 [place] Monocytes 10e9/L [facility] Absolute 0.1 0.0 - 0.7 [place] Eosinophils 10eL [facility] Absolute 0.0 0.0 - 0.2 [place] Basophils 10eL [facility] Abs Immature 0.0 0 - 0.4 [place] Granulocytes [address] [place] [address] LAB Specimen Anatomical Collection Method Collection Time Receive d Time (Source) Location / / Volume Laterality Blood specimen 02/12/2014 2:13 PM 014 2:22 (specimen) CDT PM CDT Ruth Pacheco MD LAB - BLOOD ORDERABLES Performing Organization Address City/State/ZIP Code [facility] e Number M [address] [address] [facility] Neisseria gonorrhoea PCR (02/12/2014 2:00 PM CDT) Component Value Ref Test Analysis Performed At [facility] Range Method Time Signature Specimen Pelvic [facility] N Gonorrhea Negative NEG [facility] [...] MICRO GENERAL ORDERAB LES Performing Organization Address City/[facility]/ZIP Code Phon e Number [address] [address] [facility] MICROBIOLOGY Chlamydia trachomatis PCR (02/12/2014 2:00 PM CDT) Component Value Ref Test Analysis Performed At [facility] PostedIn Range Method Time Signature Specimen Pelvic [facility] Chlamydia Negative NEG [facility] Trachomatis Negative for C. trachomatis rRNA by potato grader mediated amplification. MICROBIOLOGY PCR A negative result [...] MICRO GENERAL ORDERAB LES Performing Organization Address City/[facility]/ZIP Code Phon e Number [facility] [address] [place] [address] [facility] MICROBIOLOGY Wet prep (02/12/2014 2:00 PM CDT) [facility] Method Time Signature Specimen Pelvic [facility] Wet Prep No clue cells seen [place] No Trichomonas seen [place] No yeast seen [facility]OSPITAL LAB Few WBC'S seen Micro Report FINAL [place] Status 02/12/2014 [facility] Specimen Anatomical Collection Method Collection Time Receive d Time (Source) Location / / Volume Laterality Vaginal swab 02/12/2014 2:00 PM 4 2:06 (specimen) CDT PM CDT Ruht Pacheco MD LAB - MICRO GENERAL ORDERAB LES Performing Organization Address City/State/ZIP Code Phon e Number [facility] [address] [place], [place] [address] [facility] documented in this encounter Visit [...] pain documented in this encounter Care Teams Construction Or Leak Gang Laborer Relationship Specialty Start Date End Date Jamin Silva MD PCP - General Family Medicine - Sports 06/01/13 Medicine documented as of this encounter
--- OUTSIDE RECORDS SUMMARY | 2022-03-21 17:02 | XMS_ITS | Encounter Summary ---
:1980 Author Organization [place] Address [address] [place] [address] Care Team Providers Name Role Phone Jamin Silva MD Primary Care Provider Reason for Visit Reason Comments Abdominal Pain LLQ pain since january Encounter Details Date Type Department Care Team Description 02/26/2014 Emergency [facility] Robbie Nelson Abdom inal pain, left [place] [facility] ralph Johnson MD lower quadrant [address] [place] [facility] (Primary Dx) [facility] [id number] [phone] [address] [place], [place] [phone] (Wo rk) Social History Tobacco Use Types Packs/Day Years Used Date Smoking Tobacco: Every Day Cigarettes 0.3 Alcohol Use Standard Drinks/Week Comments No 0 (1 standard drink = 0.6 oz pure alcoho l) Sex Assigned at Date Recorded Not on file documented as of this encounter Last Filed Vital Signs Vital Sign Reading Time Taken Comments Blood Pressure 102/71 02/26/2014 4:00 PM PAYROLL CLERK Pulse 77 02/26/2014 2:41 PM PAYROLL CLERK Temperature 36.5 ??C (97.7 ??F) 02/26/2014 2:41 PM PAYROLL CLERK Respiratory Rate 16 02/26/2014 2:41 PM PAYROLL CLERK Oxygen Saturation 96% 02/26/2014 4:05 PM PAYROLL CLERK Inhaled Oxygen Concentration - - Weight 76.7 kg (169 lb) 02/26/2014 2:41 PM PAYROLL CLERK Height - - Body Mass Index - - documented in this encounter Discharge Instructions Discharge InstructionsRobbie Nelson MD - 02/26/2014 4:38 PM PAYROLL CLERK Discharge Instructions Abdominal Pain Abdominal pain can [...] directed by your doctor today. Before using nvnw-snp-sijpcze medications, ask your doctor and make sure [...] contain Tylenol?? (acetaminophen), including Vicodin??, Tylenol #3??, [place]??, Lortab??, and Percocet??. You should not take [...] if there is anything that worries you. OLL CLERK AttachmentsThe following attachments cannot be sent through Care Everywhere. PELVIC PAIN, UNKNOWN CAUSE (ICELANDIC)documented in this encounter Medications at Time of [...] and after seeing her primary provider at [facility] in [place]. She reports, however, that her aching left [...] baso 0.3%, imm gran 0.1%), hgb 13.4, [id number] CMP: creat 0.82, o/w wnl Lipase: 114 [...] be discharged home to follow up with AUTOMOTIVE BRAKE SPECIALIST perdischarge instructions. Indications for return to the [...] February 12, and February 18. Please see [facility] for details of that. She has alr [...] gave her a referral to our occupational therapist assistant gynecology provider. She will follow up. Diagnosis: ICD-9-CM 1. Abdominal pain, left lower quadrant 789.04 I, Robbie Chowdhury, am serving as a scribe at 2:52 PM on 02/26/2014 to document services personally performed by Robbie Nelson MD, based on my observations and the provider's statements to me. Robbie Nelson MD 02/28/14 1030 OLL CLERK Abril Stack RN - 02/26/2014 2:40 PM CST Nausea. States has been seen for same in clinic and ED OLL CLERK documented in this encounter Plan of Treatment Not on filedocumented as of this encounter Procedures Procedure Name Priority Date/Time Associated Comments Diagnosis US PELVIS COMPLETE W STAT 02/26/2014 3:53 PM R esults for this TRANSVAGINAL AND PAYROLL CLERK procedure a re in DOPPLER LIMITED the results section. CBC WITH PLATELETS & STAT 02/26/2014 3:24 PM R esults for this DIFFERENTIAL PAYROLL CLERK procedure are i n the results section. LIPASE STAT 02/26/2014 3:24 PM Results f or this PAYROLL CLERK procedure are i n the results section. LACTIC ACID STAT 02/26/2014 3:24 PM Results f or this PAYROLL CLERK procedure are i n the results section. COMPREHENSIVE STAT 02/26/2014 3:24 PM Results for this METABOLIC PANEL PAYROLL CLERK procedure ar e in the results section. HCG QUALITATIVE URINE STAT 02/26/2014 3:05 PM Results for this PAYROLL CLERK procedure are i n the results section. ROUTINE UA WITH STAT 02/26/2014 3:05 PM Result s for this MICROSCOPIC PAYROLL CLERK procedure are i n the results section. documented in this encounter Results US Pelvic Complete w Transvaginal & Abd/Pel Duplex Limited (02/26/2014 3:53 PM PAYROLL CLERK) Anatomical Region Laterality Modality Abdomen/Pelvis Ultrasound Specimen (Source) Anatomical Location Collection Method / Collectio n Time Received Time / Laterality Volume Impressions 02/26/2014 3:56 PM PAYROLL CLERK IMPRESSION: 1. No evidence for ovarian torsion. Norm al blood flow is seen in both ovaries. 2. 2 cm cyst or follicle in the left ova ry. 3. No free fluid or adnexal mass. BETSY MILLS MD Narrative 02/26/2014 3:56 PM PAYROLL CLERK US PELVIS COMPLETE W TRANSVAGINAL AND DOPPLER [...] mass. BETSY MILLS MD Robbie Nelson MD [facility] US ORDERABLES Lipase (02/26/2014 3:24 PM PAYROLL CLERK) P athologist Signature Lipase 114 73 - 393 [facility] U/L [facility] Comment: Effective 11/10/2013, the reference range for this assay has changed to reflect new instrumentation/methodology. Specimen Anatomical Collection Method Collection Time Receive d Time (Source) Location / / Volume Laterality Blood specimen 02/26/2014 3:24 PM 014 3:40 (specimen) PAYROLL CLERK PM PAYROLL CLERK Robbie Nelson MD LAB - BLOOD ORDERABLES Performing Organization Address [facility]/ZIP [phone] [place] [address] LAB Lactic acid (02/26/2014 3:24 PM PAYROLL CLERK) athologist Signature Lactic Acid 0.6 0.4 - 2.0 [place] mmol/L [facility] Specimen Anatomical Collection Method Collection Time Receive d Time (Source) Location / / Volume Laterality Blood specimen 02/26/2014 3:24 PM 014 3:40 (specimen) PAYROLL CLERK PM PAYROLL CLERK Robbie Nelson MD LAB - BLOOD ORDERABLES Performing Organization Address City/[facility]/[address] [address] [facility] Comprehensive metabolic panel (02/26/2014 3:24 PM PAYROLL CLERK) athologist Signature Sodium 136 133 - 144 [place] mmol/L [facility] Potassium 3.9 3.4 - 5.3 [place] mmol/L [facility] Chloride 106 94 - 109 [place] mmol/L [facility] Carbon Dioxide 26 20 - 32 [place] mmol/L [facility] Anion Gap 4 3 - 14 [place] mmol/L [facility] Glucose 89 70 - 99 [place] mg/dL [facility] Comment: Effective 11/10/2013, the reference range for this assay has changed to reflect new instrumentation/methodology. Urea Nitrogen 13 7 - 30 mg/dL [facility] Comment: Effective 11/10/2013, the reference range for this assay has changed to reflect new instrumentation/methodology. Creatinine 0.82 0.52 - 1.04 mg/dL [facility] GFR Estimate 81 >60 mL/min/1.7m2 [facility] Comment: Non GFR Calc GFR Estimate If Black >90 >60 mL/min/1.7m2 F [facility] GFR Calc [facility] LAB Calcium 8.6 8.5 - 10.1 mg/dL [facility] Comment: Effective 11/10/2013, the reference range for this assay has changed to reflect new instrumentation/methodology. Bilirubin Total 0.2 0.2 - 1.3 mg/dL [facility] Albumin 3.8 3.4 - 5.0 g/dL [facility] Protein Total 7.1 6.8 - 8.8 g/dL [facility] Alkaline Phosphatase 74 40 - 150 U/L [facility] ALT 27 0 - 50 U/L [facility] AST 17 0 - 45 U/L [facility] Specimen Anatomical Collection Method Collection Time Receive d Time (Source) Location / / Volume Laterality Blood specimen 02/26/2014 3:24 PM 014 3:40 (specimen) PAYROLL CLERK PM PAYROLL CLERK Robbie Nelson MD LAB - BLOOD ORDERABLES Performing Organization Address City/State/ZIP Code Phon e Number M [facility] [address] [place] [address] [facility] CBC with platelets differential (02/26/2014 3:24 PM PAYROLL CLERK) [facility] gist Method Time Signature WBC 7.3 4.0 - [place] 11.0 [facility] 10e9/L [facility] RBC Count 4.57 3.8 - 5.2 [place] 10e12/L [facility] Hemoglobin 13.4 11.7 - [place] 15.7 g/dL [facility] Hematocrit 40.1 35.0 - [place] 47.0 % [facility] MCV 88 78 - 100 [place] fl [facility] MCH 29.3 26.5 - [facility] 33.0 pg [facility] MCHC 33.4 31.5 - [place] 36.5 g/dL [facility] RDW 13.1 10.0 - [place] 15.0 % [facility] Platelet Count 228 150 - 450 [place] 10e9/L [facility] Diff Method Automated [facility] % Neutrophils 72.1 % [facility] % Lymphocytes 20.4 % [facility] % Monocytes 5.9 % [facility] % Eosinophils 1.2 % [facility] % Basophils 0.3 % [facility] % Immature 0.1 % [place] Granulocytes [facility] Absolute 5.3 1.6 - 8.3 [place] Neutrophil 10e9/L [facility] Absolute 1.5 0.8 - 5.3 [place] Lymphocytes 10e9/L [facility] Absolute 0.4 0.0 - 1.3 [place] Monocytes 10e9/L [facility] Absolute 0.1 0.0 - 0.7 [place] Eosinophils 10e9/L [facility] Absolute 0.0 0.0 - 0.2 [place] Basophils [address] [place] [address] LAB Abs Immature 0.0 0 - 0.4 [place] Granulocytes [address] [place] [address] LAB Specimen Anatomical Collection Method Collection Time Receive d Time (Source) Location / / Volume Laterality Blood specimen 02/26/2014 3:24 PM 014 3:40 (specimen) PAYROLL CLERK PM PAYROLL CLERK Robbie Nelson MD LAB - BLOOD ORDERABLES Performing Organization Address City/State/ZIP [facility] Phon e Number M [facility] [address] [place], [place] [address] [facility] HCG qualitative urine (02/26/2014 3:05 PM PAYROLL CLERK) P athologist Signature HCG Qual Urine Negative NEG [facility] Specimen Anatomical Collection Method Collection Time Receive d Time (Source) Location / / Volume Laterality Urine specimen URINE SPECIMEN 02/26/2014 3:05 PM 02/26 3:10 (specimen) OBTAINED BY CLEAN PAYROLL CLERK PM PAYROLL CLERK CATCH PROCEDURE / Unknown Robbie Nelson MD LAB - URINE ORDERABLES Performing Organization Address City/State/[facility] Phon e Number M [facility] [address] [place], [place] [address] [facility] (ABNORMAL) UA with Microscopic (02/26/2014 3:05 PM PAYROLL CLERK) Patholo gist Method Time Signature Color Urine Light Yellow [facility] Appearance Urine Clear [facility] Glucose Urine Negative NEG mg/dL [facility] Bilirubin Urine Negative NEG [facility] Ketones Urine Negative NEG mg/dL [facility] Specific [place] 1.007 1.003 - [place] Urine 1.035 [facility] Blood Urine Negative NEG [facility] pH Urine 5.5 5.0 - 7.0 [place] pH [facility] Protein Albumin Negative NEG mg/dL [facility] LAB Urobilinogen Normal 0.0 - 2.0 [place] mg/dL mg/dL [facility] Nitrite Urine Negative NEG [facility] Leukocyte Negative NEG [place] Esterase Urine [facility] Source Midstream [place] Urine [facility] WBC Urine <1 0 - 2 [facility] RBC Urine <1 0 - 2 [facility] Bacteria Urine Few (A) NEG /HPF [facility] Squamous 1 0 - 1 [place] Epithelial /HPF /HPF [facility] Mucous Urine Present (A) NEG /LPF [facility] Specimen Anatomical Collection Method Collection Time Receive d Time (Source) Location / / Volume Laterality Urine specimen URINE SPECIMEN 02/26/2014 3:05 PM 02/26 3:10 (specimen) OBTAINED BY CLEAN PAYROLL CLERK PM PAYROLL CLERK CATCH PROCEDURE / Unknown Robbie Nelson MD LAB - URINE ORDERABLES Performing Organization Address City/State/ZIP Code Phon e Number M [place] [address] [place] [address] [facility] documented in this encounter Visit Diagnoses Diagnosis Abdominal pain, left lower quadrant - Pr imary documented in this encounter Administered Medications Inactive Administered Medications - up to 3 most recent administrations Medication Order MAR Action Action Date Dose Rate Site ketorolac (TORADOL) injection 30 mg Given 02/26/2014 3:18 PM PAYROLL CLERK 30 mg 30 mg, Intravenous, ONCE, On 02/26/14 at 1507, For 1 dose ondansetron (ZOFRAN) injection 4 mg Given 02/26/2014 3:18 PM PAYROLL CLERK 4 mg 4 mg, Intravenous, EVERY 30 MIN PRN, nausea, vomiting, Administer over 2-5 Minutes, Starting on 02/26/14 at 1506, For 3 doses, May repeat in 30 minutes as needed, up to 3 doses. oxyCODONE-acetaminophen (PERCOCET) 5-325 Given 02/26/2014 4: 55 PM PAYROLL CLERK 2 tablets MG per tablet 2 tablet 2 tablet, Oral, ONCE, On 02/26/14 at 1638, For 1 dose, Maximum acetaminophen dose from all sources= 75 mg/kg/day not to exceed 4 grams sodium chloride 0.9 % BOLUS New Bag 02/26/2014 3:18 PM PAYROLL CLERK 1,000 m Ls 1000 mL/hr 1,000 mL Intravenous, 1,000 mL, ONCE, at 1,000 mL/hr, Administer over 1 Hours, On 02/26/14 at 1507, For 1 dose documented in this encounter Active and Recently Administered Medications Times are shown in PAYROLL CLERK. Scheduled Medication Order 02/24/2014 02/25/2014 02/26/2014 ketorolac [...] doses. documented in this encounter Care Teams Residential Carpenter Relationship Specialty Start Date End Date Jamin Silva MD PCP - General Family Medicine - Sports 06/01/13 Medicine documented as of this encounter
--- OUTSIDE RECORDS SUMMARY | 2022-03-21 17:02 | XMS_ITS | Encounter Summary ---
:1980 Author Organization [place] Address [address] [place] [id number] Care Team Providers Name Role Phone Jamin Silva MD Primary Care Provider Reason for Visit Reason Comments Abdominal Pain Encounter Details Date Type Department Care Team Description 02/18/2014 - Emergency [facility] Lindsay Lu Ab dominal pain, left 02/19/2014 [facility] Emergency lower quadrant Dept SKIN REJUVENATION (Primary Dx) [address], [place] [address] [facility]ISON[facility]az[facility] [id number] [facility] [phone] JULIOLÁZARO [id number] (Wo rk) Social History Tobacco Use Types Packs/Day Years Used Date Smoking Tobacco: Every Day Cigarettes 0.3 Alcohol Use Standard Drinks/Week Comments No 0 (1 standard drink = 0.6 oz pure alcoho l) Sex Assigned at Date Recorded Not on file documented as of this encounter Last Filed Vital Signs Vital Sign Reading Time Taken Comments Blood Pressure 115/78 02/19/2014 12:03 AM WOOL SPOTTER Pulse 79 02/19/2014 12:03 AM WOOL SPOTTER Temperature 36.8 ??C (98.2 ??F) 02/18/2014 8:16 PM WOOL SPOTTER Respiratory Rate 18 02/18/2014 8:16 PM WOOL SPOTTER Oxygen Saturation 98% 02/19/2014 12:03 AM WOOL SPOTTER Inhaled Oxygen Concentration - - Weight 77.6 kg (171 lb) 02/18/2014 8:16 PM WOOL SPOTTER Height - - Body Mass Index - - documented in this encounter Discharge Instructions Discharge InstructionsLindsay Lu MD - 02/18/2014 11:38 PM WOOL SPOTTER Discharge Instructions Abdominal Pain Abdominal pain can [...] directed by your doctor today. Before using nusw-zbz-jjqdzef medications, ask your doctor and make sure [...] contain Tylenol?? (acetaminophen), including Vicodin??, Tylenol #3??, [place]??, Lortab??, and Percocet??. You should not take [...] if there is anything that worries you. SPOTTER documented in this encounter Medications at Time [...] time. She has not followed up with ENERGY CONSULTANT since discharge from the ED. Allergies: NKDA [...] pain, although has not followed up with user experience analyst. Patient's pain improved with interventions in the ED. I did discuss our chronicand recurrent pain policy with the patient. Patient did have a US that showed a collapsed 1 cm cyst.There is no evidence of torsion, mass, diverticulitis, or other abnormalities. Bloodwork, UA and wetprep were negative. I will have them follow up with user experience analyst in the next 3 days and return with worsening pain, vomiting or fever. Diagnosis: 1. Left lower quadrant abdominal pain. Bimal Miranda, am serving as a scribe on 02/18/2014 at 9:02 PM to personally document services performed by Dr. Lu, Lindsay Mcdonough MD based on my observations and the provider's statements to me. Bimal Calderón 02/18/2014 [facility] EMERGENCY DEPARTMENT Lindsay Lu MD 02/19/14 0117 SPOTTER Floridalma Rivas, RN - 02/18/2014 8:15 PM CST Alert and oriented x 3 airway,breathing and circulation intact LLQ abd pain, has had ovarian cyst since feb 08 , pain worse yesterday, nausea SPOTTER documented in this encounter Plan of Treatment Not on filedocumented as of this encounter Procedures Procedure Name Priority Date/Time Associated Comments Diagnosis US PELVIS COMPLETE W STAT 02/18/2014 10:45 Res ults for this TRANSVAGINAL AND PM WOOL SPOTTER procedure a re in DOPPLER LIMITED the results section. HCG QUALITATIVE URINE STAT 02/18/2014 9:53 PM Results for this WOOL SPOTTER procedure are i n the results section. ROUTINE UA WITH STAT 02/18/2014 9:53 PM Result s for this MICROSCOPIC WOOL SPOTTER procedure are i n the results section. WET PREPARATION STAT 02/18/2014 9:31 PM Result s for this WOOL SPOTTER procedure are i n the results section. NEISSERIA GONORRHOEAE STAT 02/18/2014 9:31 PM Abdominal Renny n, Results for this PCR WOOL SPOTTER Left Lower Quadrant procedur e are in the results section. CHLAMYDIA TRACHOMATIS STAT 02/18/2014 9:31 PM Abdominal Renny n, Results for this PCR WOOL SPOTTER Left Lower Quadrant procedur e are in the results section. CBC WITH PLATELETS & STAT 02/18/2014 9:11 PM R esults for this DIFFERENTIAL WOOL SPOTTER procedure are i n the results section. BASIC METABOLIC PANEL STAT 02/18/2014 9:11 PM Results for this WOOL SPOTTER procedure are i n the results section. documented in this encounter Results US Pelvic Complete w Transvaginal & Abd/Pel Duplex Limited (02/18/2014 10:45 PM WOOL SPOTTER) Anatomical Region Laterality Modality Abdomen/Pelvis Ultrasound Specimen (Source) Anatomical Location Collection Method / Collectio n Time Received Time / Laterality Volume Impressions 02/18/2014 11:08 PM WOOL SPOTTER IMPRESSION: 1. No evidence for ovarian torsion. Norm al blood flow is seen in both ovaries. 2. Collapsing follicle left ovary. 3. Small amount of fluid in the endometr ial cavity. BETSY MILLS MD Narrative 02/18/2014 11:08 PM WOOL SPOTTER US PELVIS COMPLETE W TRANSVAGINAL AND DOPPLER [...] ORDERABLES HCG qualitative urine (02/18/2014 9:53 PM WOOL SPOTTER) P athologist Signature HCG Qual Urine Negative NEG [facility] LAB Specimen Anatomical Collection Method Collection Time Receive d Time (Source) Location / / Volume Laterality Urine specimen URINE SPECIMEN 02/18/2014 9:53 PM 02/18 (specimen) OBTAINED BY CLEAN WOOL SPOTTER 10:[address] CATCH PROCEDURE / Unknown Lindsay Lu MD LAB - URINE ORDERABLES Performing Organization Address City/State/ZIP Code Phon e Number M [facility] [address] [place], [place] [address] [facility] LAB (ABNORMAL) UA with Microscopic (02/18/2014 9:53 PM WOOL SPOTTER) Patholo gist Method Time Signature Color Urine Yellow [facility] Appearance Urine Clear [facility] Glucose Urine Negative NEG mg/dL [facility] Bilirubin Urine Negative NEG [facility] Ketones Urine Negative NEG mg/dL [facility] Specific [place] 1.016 1.003 - [place] Urine 1.035 [facility] LAB Blood Urine Negative NEG [facility] pH Urine 6.0 5.0 - 7.0 [place] pH [facility] LAB Protein Albumin Negative NEG mg/dL [facility] LAB Urobilinogen Normal 0.0 - 2.0 [place] mg/dL mg/dL [facility] LAB Nitrite Urine Negative NEG [facility] Leukocyte Negative NEG [place] Esterase Urine [facility] LAB Source Midstream [facility] LAB WBC Urine 0 0 - 2 [place] /HPF [facility] LAB RBC Urine <1 0 - 2 [place] /HPF [facility] LAB Squamous <1 0 - 1 [place] Epithelial /HPF /HPF [facility] LAB Mucous Urine Present (A) NEG /LPF [facility] Specimen Anatomical Collection Method Collection Time Receive d Time (Source) Location / / Volume Laterality Urine specimen URINE SPECIMEN 02/18/2014 9:53 PM 02/18 (specimen) OBTAINED BY CLEAN WOOL SPOTTER 10:[address] CATCH PROCEDURE / Unknown Lindsay Lu MD LAB - URINE ORDERABLES Performing Organization Address City/State/ZIP Code Phon e Number M [facility] [address] [place], [place] [address] [facility] LAB Neisseria gonorrhoea PCR (02/18/2014 9:31 PM WOOL SPOTTER) Component Value Ref Test Analysis Performed At [facility] Method Time Signature Specimen [facility] LAB N Gonorrhea Negative NEG [facility] [...] swab 02/18/2014 9:31 PM 4 9:35 (specimen) WOOL SPOTTER PM WOOL SPOTTER Lindsay Lu MD LAB - MICRO GENERAL ORDERABL ES Performing Organization Address City/[facility]/ZIP Code Phon e Number [place] [phone] [facility] LAB [facility] MICROBIOLOGY Chlamydia trachomatis PCR (02/18/2014 9:31 PM WOOL SPOTTER) Component Value Ref Test Analysis Performed At [facility] Specimen [facility] LAB Chlamydia Negative NEG [facility] Trachomatis Negative for C. trachomatis rRNA by supervisory it specialist mediated amplification. MICROBIOLOGY PCR A negative result [...] swab 02/18/2014 9:31 PM 4 9:35 (specimen) WOOL SPOTTER PM WOOL SPOTTER Lindsay Lu MD LAB - MICRO GENERAL ORDERABL ES Performing Organization Address City/State/ZIP Code Phon e Number [address] [address] [facility] LAB [facility] MICROBIOLOGY Wet prep (02/18/2014 9:31 PM WOOL SPOTTER) [facility] Method Time Signature Specimen [facility] LAB Wet Prep Few PMNs seen [place] No clue cells seen [facility] No yeast seen [facility]ITAL LAB No Trichomonas seen Micro Report FINAL [place] Status 02/18/2014 [facility] LAB Specimen Anatomical Collection Method Collection Time Receive d Time (Source) Location / / Volume Laterality Vaginal swab 02/18/2014 9:31 PM 4 9:35 (specimen) WOOL SPOTTER PM WOOL SPOTTER Lindsay Lu MD LAB - MICRO GENERAL ORDERABL ES Performing Organization Address City/State/ZIP Code Phon e Number M [facility] [address] [place], [place] [address] [facility] LAB (ABNORMAL) Basic metabolic panel (02/18/2014 9:11 PM WOOL SPOTTER) athologist Signature Sodium 139 133 - 144 [place] mmol/L [facility] LAB Potassium 3.7 3.4 - 5.3 [place] mmol/L [facility] LAB Chloride 109 94 - 109 [place] mmol/L [facility] LAB Carbon Dioxide 24 20 - 32 [place] mmol/L [facility] LAB Anion Gap 6 3 - 14 [place] mmol/L [facility] LAB Glucose 82 70 - 99 [place] mg/dL [facility] LAB Comment: Effective 11/10/2013, the reference range for this assay has changed to reflect new instrumentation/methodology. Urea Nitrogen 13 7 - 30 mg/dL [facility] LAB Comment: Effective 11/10/2013, the reference range for this assay has changed to reflect new instrumentation/methodology. Creatinine 0.85 0.52 - 1.04 mg/dL [facility] LAB GFR Estimate 77 >60 mL/min/1.7m2 [facility] LAB Comment: Non GFR Calc GFR Estimate If Black >90 >60 mL/min/1.7m2 [facility] GFR Calc HOSP [facility]AL LAB Calcium 8.1 (L) 8.5 - 10.1 mg/dL [facility] LAB Comment: Effective 11/10/2013, the reference range for this assay has changed to reflect new instrumentation/methodology. Specimen Anatomical Collection Method Collection Time Receive d Time (Source) Location / / Volume Laterality Blood specimen 02/18/2014 9:11 PM 014 9:12 (specimen) WOOL SPOTTER PM WOOL SPOTTER Lindsay Lu MD LAB - BLOOD ORDERABLES Performing Organization Address City/State/ZIP Code Phon e Number M [facility] [address] [place], [place] [address] [facility] CBC with platelets differential (02/18/2014 9:11 PM WOOL SPOTTER) [facility] gist Method Time Signature WBC 7.6 4.0 - [place] 11.0 [facility] [address] LAB RBC Count 4.26 3.8 - 5.2 [place] 10e12/L [facility] LAB Hemoglobin 12.7 11.7 - [place] 15.7 g/dL [facility] LAB Hematocrit 38.0 35.0 - [place] 47.0 % [facility] LAB MCV 89 78 - 100 [place] fl [facility] LAB MCH 29.8 26.5 - [place] 33.0 pg [facility] LAB MCHC 33.4 31.5 - [place] 36.5 g/dL [facility] LAB RDW 13.4 10.0 - [place] 15.0 % [facility] LAB Platelet Count 200 150 - [address] LAB Diff Method Automated [facility] LAB % Neutrophils 68.0 % [facility] LAB % Lymphocytes 22.2 % [facility] % Monocytes 8.3 % [facility] % Eosinophils 1.3 % [facility] % Basophils 0.1 % [facility] LAB % Immature 0.1 % [place] Granulocytes [facility] LAB Absolute 5.2 1.6 - 8.3 [place] Neutrophil 10e9/L [facility] LAB Absolute 1.7 0.8 - 5.3 [place] Lymphocytes [address] [place] [address] LAB Absolute 0.6 0.0 - 1.3 [place] Monocytes [address] LAB Absolute 0.1 0.0 - 0.7 [place] Eosinophils [address] LAB Absolute 0.0 0.0 - 0.2 [place] Basophils [address] [place] [address] LAB Abs Immature 0.0 0 - 0.4 [place] Granulocytes [address] [place] [address] LAB Specimen Anatomical Collection Method Collection Time Receive d Time (Source) Location / / Volume Laterality Blood specimen 02/18/2014 9:11 PM 014 9:12 (specimen) WOOL SPOTTER PM WOOL SPOTTER Lindsay uL MD LAB - BLOOD ORDERABLES Performing Organization Address City/State/ZIP Code Phon e Number M [facility] [address] [place], [place] [address] [facility] LAB documented in this encounter Visit Diagnoses Diagnosis Abdominal pain, left lower quadrant - Pr imary documented in this encounter Administered Medications Inactive Administered Medications - up to 3 most recent administrations Medication Order MAR Action Action Date Dose Rate Site diphenhydrAMINE (BENADRYL) Given 02/18/2014 9:16 PM WOOL SPOTTER 25 mg injection 25 mg 25 mg, Intravenous, ONCE, On Fri02/18/14 at 2107, For 1 dose ketorolac (TORADOL) injection 30 mg Given 02/18/2014 9:14 PM WOOL SPOTTER 30 mg 30 mg, Intravenous, ONCE, On Fri02/18/14 at 2107, For 1 dose, Do not give within 6 hours of Ibuprofen. oxyCODONE-acetaminophen (PERCOCET) 5-325 Given 02/18/2014 10 :43 PM WOOL SPOTTER 1 tablet MG per tablet 1 tablet [...] 1 0 mg Given 02/18/2014 9:18 PM WOOL SPOTTER 10 mg 10 mg, Intravenous, ONCE, On Fri02/18/14 at 2107, For 1 dose sodium chloride 0.9 % BOLUS New Bag 02/18/2014 9:14 PM WOOL SPOTTER 1,000 m Ls 1000 mL/hr 1,000 mL Intravenous, 1,000 mL, ONCE, at 1,000 mL/hr, Administer over 1 Hours, On Fri02/18/14 at 2107, For 1 dose documented in this encounter Active and Recently Administered Medications Times are shown in WOOL SPOTTER. Scheduled Medication Order 02/17/2014 02/18/2014 02/19/2014 diphenhydrAMINE [...] dose documented in this encounter Care Teams Marketing Sales Representative Relationship Specialty Start Date End Date Jamin Silva MD PCP - General Family Medicine - Sports 06/01/13 Medicine documented as of this encounter
--- OUTSIDE RECORDS SUMMARY | 2022-03-21 17:02 | XMS_ITS | Encounter Summary ---
:1980 Author Organization [place] Address [address] [place] [id number] Care Team Providers Name Role Phone Jamin Silva MD Primary Care Provider Reason for Visit Reason Comments Abdominal Pain Encounter Details Date Type Department Care Team Description 02/01/[address] [facility] Roberto Carlos Escobedo C hronic abdominal pain; [facility] Emergency Dep t PID (acute pelvic inflammatory disease); [address] [facility] Bacterial vaginosis [facility] [id number] [facility] [phone] [place], [place] [address] (Wo rk) Social History [...] directed by your doctor today. Before using onjv-slk-iltuzdr medications, ask your doctor and make sure [...] sent through Care Everywhere. PELVIC INFLAMMATORY DISEASE (CYMRAES)VAGINITIS, BACTERIAL (CYMRAES)documented in this encounter Medications at Time of [...] reports having an a ppointment with her wheel adjuster in a week, but is in severe [...] and the provider's statements to me. 02/01/2015 [facility] EMERGENCY DEPARTMENT Roberto Carlos Escobedo MD 02/01/15 [...] Signature HCG Qual Urine Negative NEG [facility] Specimen Anatomical Collection Method Collection Time Receive d Time (Source) Location / / Volume Laterality Urine specimen URINE SPECIMEN 02/01/2015 12:15 015 (specimen) OBTAINED BY CLEAN PM CDT 12:27 PM C DT CATCH PROCEDURE / Unknown Roberto Carlos Escobedo MD LAB - URINE ORDERABLES Performing Organization Address City/[facility]/ZIP [facility] Phon e Number M [facility] [address] [place], [place] [address] [facility] [address] [place] [address] [facility] [phone] (ABNORMAL) Routine UA with microscopic (02/01/2015 12:15 PM CDT) [facility] Method Time Signature Color Urine Light Yellow [facility] Appearance Urine Clear [facility] Glucose Urine Negative NEG mg/dL [facility] Bilirubin Urine Negative NEG [facility] Ketones Urine Negative NEG mg/dL [facility] Specific [place] 1.016 1.003 - [place] Urine 1.035 [facility] Blood Urine Negative NEG [facility] pH Urine 6.0 5.0 - 7.0 [place] pH [facility] Protein Albumin Negative NEG mg/dL [facility] Urobilinogen Normal 0.0 - 2.0 [place] mg/dL mg/dL [facility] Nitrite Urine Negative NEG [facility] Leukocyte Negative NEG [place] Esterase Urine [facility] Source Midstream [facility] WBC Urine 0 0 - 2 [place] /HPF [facility] RBC Urine 1 0 - 2 [place] /HPF [facility] Squamous 1 0 - 1 [place] Epithelial /HPF /HPF [facility] Mucous Urine Present (A) NEG /LPF [facility] Specimen Anatomical Collection Method Collection Time Receive d Time (Source) Location / / Volume Laterality Urine specimen URINE SPECIMEN 02/01/2015 12:15 015 (specimen) OBTAINED BY CLEAN PM CDT 12:27 PM C DT CATCH PROCEDURE / Unknown Roberto Carlos Escobedo MD LAB - URINE ORDERABLES Performing Organization Address City/[facility] Phon e Number M [facility] [address] [place], [place] [address] [facility] [address] [place] [phone], [facility] [phone] Chlamydia trachomatis PCR (02/01/2015 11:38 AM CDT) Component Value Ref Test Analysis Performed At [facility] [employer] Range Method Time Signature Specimen [facility] Chlamydia Negative NEG [facility] Trachomatis Negative for C. trachomatis rRNA by phone engineer mediated amplification. [facility] PCR A negative result by transc [...] MICRO GENERAL ORDERABL ES Performing Organization Address City/[facility]/ZIP Code Phon e Number [address] [place] [address], [facility] [phone] Neisseria gonorrhoeae PCR (02/01/2015 11:38 AM CDT) Component Value Ref Test Analysis Performed At [facility] Method Time Signature Specimen Vagina [facility] N Gonorrhea Negative NEG [facility] PCR Negative for N. gonorrhoeae rRNA by transcripti on mediated amplification. [facility] A negative result by transc ription [...] MICRO GENERAL ORDERABL ES Performing Organization Address City/[facility]/ZIP Code Phon e Number [address] [place] [address] 7, [facility] [phone] (ABNORMAL) Wet prep (02/01/2015 11:38 AM CDT) [facility] Method Time Signature Specimen [facility]ag[facility] Wet Prep No Trichomonas seen [place] Clue cells seen [facility] No yeast seen [facility] Few WBC'S seen (A) Micro Report FINAL [place] Status 02/01/2015 [facility] Specimen Anatomical Collection Method Collection Time Receive d Time (Source) Location / / Volume Laterality Specimen from 02/01/2015 11:38 02/01/2015 vagina AM CDT 11:39 AM CDT (specimen) Roberto Carlos Escobedo MD LAB - MICRO GENERAL ORDERABL ES Performing Organization Address City/State/ZIP Code Phon e Number M [place] [address] [address] [place], [place] [address] [facility] [address] [place], [place] [address] 7, [facility] [phone] documented in this encounter Visit Diagnoses Diagnosis [...] grams documented in this encounter Care Teams Dry Cleaning Teacher Relationship Specialty Start Date End Date Jamin Silva MD PCP - General Family Medicine - Sports 06/01/13 Medicine documented as of this encounter
--- OUTSIDE RECORDS SUMMARY | 2022-03-21 17:02 | XMS_ITS | Encounter Summary ---
:1980 Author Organization [facility] Address [address] [place] [id number] Care Team Providers Name Role Phone Jamin Silva MD Primary Care Provider Reason for Visit Reason Comments Abdominal Pain Encounter Details Date Type Department Care Team Description 03/30/2014 Emergency [facility] Courtney Hodges MD Left sided abdominal pain; [facility] Emergency Dep t [facility] Other and unspecified ovaria n cyst [address] [place], [place] [address] [facility] [id number] [place], [place] [id number] (Wo rk) Social History Tobacco Use Types Packs/Day Years Used Date Smoking Tobacco: Every Day Cigarettes 0.3 Alcohol Use Standard Drinks/Week Comments No 0 (1 standard drink = 0.6 oz pure alcoho l) Sex Assigned at Date Recorded Not on file documented as of this encounter Last Filed Vital Signs Vital Sign Reading Time Taken Comments Blood Pressure 131/90 03/30/2014 4:32 PM [employer] Pulse 100 03/30/2014 12:45 PM [employer] Temperature 36.5 ??C (97.7 ??F) 03/30/2014 12:45 PM [employer] [employer] Respiratory Rate 16 03/30/2014 2:20 PM [employer] Oxygen Saturation 97% 03/30/2014 4:32 PM [employer] Inhaled Oxygen Concentration - - Weight - [...] contain Tylenol?? (acetaminophen), including Vicodin??, Tylenol #3??, Kealia??, Lortab??, and Percocet??. You should not take [...] directed by your doctor today. Before using kynw-vvs-gnposch medications, ask your doctor and make sure [...] contain Tylenol?? (acetaminophen), including Vicodin??, Tylenol #3??, Kealia??, Lortab??, and Percocet??. You should not take [...] if there is anything that worries you. [employer] documented in this encounter Medications at Time [...] to bathroom. Pt tolerated well. UA obtained [employer] Courtney Hodges MD - 03/30/2014 2:23 PM [...] provider's statements to me. Buffy Curtis 03/30/2014 [facility] EM[facility]ENCY [facility] Courtney Hodges MD 03/31/14 0037 [employer] Meena Walker RN - 03/30/2014 12:46 PM CST Left lower abd pain- history of ovarian cyst. ABC Intact alert and no distress. [employer] documented in this encounter Plan of Treatment Not on filedocumented as of this encounter Procedures Procedure Name Priority Date/Time Associated Comments Diagnosis US PELVIS COMPLETE W STAT 03/30/2014 3:51 PM R esults for this TRANSVAGINAL AND [employer]OW [employer] procedure a re in DOPPLER LIMITED the results section. CBC WITH PLATELETS & STAT 03/30/2014 2:40 PM R esults for this DIFFERENTIAL [employer] procedure are i n the results section. LIPASE STAT 03/30/2014 2:40 PM Results f or this [employer]OW [employer] procedure are i n the results section. COMPREHENSIVE STAT 03/30/2014 2:40 PM Results for this METABOLIC PANEL [employer] procedure ar e in the results section. HCG QUALITATIVE URINE STAT 03/30/2014 2:38 PM Results for this [employer] procedure are i n the results section. ROUTINE UA WITH STAT 03/30/2014 2:38 PM Result s for this MICROSCOPIC [employer] procedure are i n the results section. documented in this encounter Results US Pelvic Complete w Transvaginal & Abd/Pel Duplex Limited (03/30/2014 3:51 PM [employer]) Anatomical Region Laterality Modality Abdomen/Pelvis Ultrasound Specimen (Source) Anatomical Location Collection Method / Collectio n Time Received Time / Laterality Volume Narrative 03/30/2014 3:58 PM [employer] PELVIC ULTRASOUND 03/30/2014 3:51 PM HISTORY: Pelvic [...] ovaries. DWIGHT RAZO MD Courtney Hodges MD [facility] US ORDERABLES Lipase (03/30/2014 2:40 PM [employer]) athologist Signature Lipase 110 73 - 393 [facility] U/L [facility] Comment: Effective 11/10/2013, the reference range for this assay has changed to reflect new instrumentation/methodology. Specimen Anatomical Collection Method Collection Time Receive d Time (Source) Location / / Volume Laterality Blood specimen 03/30/2014 2:40 PM 014 2:56 (specimen) [employer] PM [employer]OW [employer] Courtney Hodges MD LAB - BLOOD ORDERABLES Performing Organization Address City/State/ZIP Code Phon e Number M [facility] [address] [place] [address] [facility] Comprehensive metabolic panel (03/30/2014 2:40 PM [employer]) athologist Signature Sodium 135 133 - 144 [place] mmol/L [facility] Potassium 4.0 3.4 - 5.3 [place] mmol/L [facility] Chloride 105 94 - 109 [place] mmol/L [facility] Carbon Dioxide 26 20 - 32 [place] mmol/L [facility] Anion Gap 4 3 - 14 [place] mmol/L [facility] Glucose 97 70 - 99 [place] mg/dL [facility] Comment: Effective 11/10/2013, the reference range for this assay has changed to reflect new instrumentation/methodology. Urea Nitrogen 17 7 - 30 mg/dL [facility] Comment: Effective 11/10/2013, the reference range for this assay has changed to reflect new instrumentation/methodology. Creatinine 0.77 0.52 - 1.04 mg/dL [facility] GFR Estimate 87 >60 mL/min/1.7m2 [facility] Comment: Non GFR Calc GFR Estimate If Black >90 >60 mL/min/1.7m2 F [facility] GFR Calc [facility] Calcium 8.6 8.5 - 10.1 mg/dL [facility] Comment: Effective 11/10/2013, the reference range for this assay has changed to reflect new instrumentation/methodology. Bilirubin Total 0.3 0.2 - 1.3 mg/dL [facility] Albumin 3.8 3.4 - 5.0 g/dL [facility] Protein Total 7.1 6.8 - 8.8 g/dL [facility] Alkaline Phosphatase 80 40 - 150 U/L [facility] ALT 34 0 - 50 U/L [facility] AST 23 0 - 45 U/L [facility] Specimen Anatomical Collection Method Collection Time Receive d Time (Source) Location / / Volume Laterality Blood specimen 03/30/2014 2:40 PM 014 2:56 (specimen) [employer] PM [employer]OW [employer] Courtney Hodges MD LAB - BLOOD ORDERABLES Performing Organization Address City/State/ZIP Code Phon e Number M [facility] [address] [place], [place] [address] [facility] CBC with platelets differential (03/30/2014 2:40 PM [employer]) [facility] gist Method Time Signature WBC 8.7 4.0 - [place] 11.0 [facility] 10e9/L HOSPITAL LAB RBC Count 4.70 3.8 - 5.2 [place] 10e12/L [facility] Hemoglobin 14.1 11.7 - [place] 15.7 g/dL [facility] Hematocrit 41.0 35.0 - [place] 47.0 % [facility] MCV 87 78 - 100 [place] fl [facility] MCH 30.0 26.5 - [place] 33.0 pg [facility] MCHC 34.4 31.5 - [place] 36.5 g/dL [facility] RDW 13.1 10.0 - [place] 15.0 % [facility] Platelet Count 233 150 - 450 [place] [facility] Diff Method Automated [facility] % Neutrophils 68.9 % [facility] % Lymphocytes 23.0 % [facility] % Monocytes 6.6 % [facility] % Eosinophils 1.2 % [facility] % Basophils 0.1 % [facility] % Immature 0.2 % [place] Granulocytes [facility] Absolute 6.0 1.6 - 8.3 [place] Neutrophil 10e9/L [facility] Absolute 2.0 0.8 - 5.3 [place] Lymphocytes 109[facility] Absolute 0.6 0.0 - 1.3 [place] Monocytes 109[facility] Absolute 0.1 0.0 - 0.7 [place] Eosinophils [facility] Absolute 0.0 0.0 - 0.2 [place] Basophils [address] LAB Abs Immature 0.0 0 - 0.4 [place] Granulocytes [address] [place] [address] LAB Specimen Anatomical Collection Method Collection Time Receive d Time (Source) Location / / Volume Laterality Blood specimen 03/30/2014 2:40 PM 014 2:56 (specimen) [employer] PM [employer]OW [employer] Courtney Hodges MD LAB - BLOOD ORDERABLES Performing Organization Address City/State/ZIP Code Phon e Number M [facility] [address] [place], [place] [address] [facility] HCG qualitative urine (03/30/2014 2:38 PM [employer]) athologist Signature HCG Qual Urine Negative NEG [facility] Specimen Anatomical Collection Method Collection Time Receive d Time (Source) Location / / Volume Laterality Urine specimen 03/30/2014 2:38 PM 014 2:55 (specimen) [employer] PM [employer] Courtney Hodges MD LAB - URINE ORDERABLES Performing Organization Address [facility]/ZIP [facility] Phon e Number M [facility] [address] [place], [place] [address] [facility] (ABNORMAL) UA with Microscopic (03/30/2014 2:38 PM [employer]) [facility] Method Time Signature Color Urine Yellow [facility] Appearance Urine Clear [facility] Glucose Urine Negative NEG mg/dL [facility] Bilirubin Urine Negative NEG [facility] Ketones Urine Negative NEG mg/dL [facility] Specific [place] 1.016 1.003 - [place] Urine 1.035 [facility] Blood Urine Negative NEG [facility] pH Urine 5.5 5.0 - 7.0 [place] pH [facility] Protein Albumin Negative NEG mg/dL [facility] Urobilinogen Normal 0.0 - 2.0 [place] mg/dL mg/dL [facility] Nitrite Urine Negative NEG [facility] Leukocyte Negative NEG [place] Esterase Urine [facility] Source Midstream [facility] WBC Urine 0 0 - 2 [place] /HPF [facility] RBC Urine 1 0 - 2 [place] /HPF [facility] Squamous <1 0 - 1 [place] Epithelial /HPF /HPF [facility] Mucous Urine Present (A) NEG /LPF [facility] Specimen Anatomical Collection Method Collection Time Receive d Time (Source) Location / / Volume Laterality Urine specimen 03/30/2014 2:38 PM 014 2:55 (specimen) [employer] PM [employer]OW [employer] Courtney Hodges MD LAB - URINE ORDERABLES Performing Organization Address [facility] Phon e Number M [place] [id number] [place], [place] [address] [facility] documented in this encounter Visit Diagnoses Diagnosis Left sided abdominal pain Abdominal pain, unspecified site Other and unspecified ovarian cyst documented in this encounter Administered Medications Inactive Administered Medications - up to 3 most recent administrations Medication Order MAR Action Action Date Dose Rate Site ketorolac (TORADOL) injection 30 mg Given 03/30/2014 2:55 PM [employer] 30 mg 30 mg, Intravenous, ONCE, On Fri03/30/14 at 1427, For 1 dose, Do not give within 6 hours of Ibuprofen. ondansetron (ZOFRAN) injection 4 mg Given 03/30/2014 2:54 PM [employer] 4 mg 4 mg, Intravenous, EVERY 30 MIN PRN, nausea, vomiting, Administer over 2-5 Minutes, Starting on Fri03/30/14 at 1426, For 3 doses, May repeat in 30 minutes as needed, up to 3 doses. sodium chloride 0.9 % BOLUS New Bag 03/30/2014 2:48 PM [employer] 1,000 m Ls 1000 mL/hr 1,000 mL Intravenous, 1,000 mL, ONCE, at 1,000 mL/hr, Administer over 1 Hours, On Fri03/30/14 at 1427, For 1 dose documented in this encounter Active and Recently Administered Medications Times are shown in [employer]. Scheduled Medication Order 03/28/2014 03/29/2014 03/30/2014 ketorolac [...] doses. documented in this encounter Care Teams Nurse Office Relationship Specialty Start Date End Date Jamin Silva MD PCP - General Family Medicine - Sports 06/01/13 Medicine documented as of this encounter
--- OUTSIDE RECORDS SUMMARY | 2022-03-21 17:02 | XMS_ITS | Encounter Summary ---
:1980 Author Organization [facility] Address [address] [place] [id number] Care Team Providers Name Role Phone Jamin Silva MD Primary Care Provider Reason for Visit Reason Comments Abdominal Pain Encounter Details Date Type Department Care Team Description 05/14/2014 Emergency [facility] Carlos Lee MD Chronic abdominal pain [facility] Emergency Dep t [facility] [address] [place], [place] [address] [facility] [address] [place] [address] [phone] (Wo rk) Social History Tobacco Use Types Packs/Day Years Used Date Smoking Tobacco: Every Day Cigarettes 0.3 Alcohol Use Standard Drinks/Week Comments No 0 (1 standard drink = 0.6 oz pure alcoho l) Sex Assigned at Date Recorded Not on file documented as of this encounter Last Filed Vital Signs Vital Sign Reading Time Taken Comments Blood Pressure 122/77 05/14/2014 5:07 PM INTERNAL COMMUNICATIONS MANAGER Pulse 103 05/14/2014 12:54 PM INTERNAL COMMUNICATIONS MANAGER Temperature 36.8 ??C (98.2 ??F) 05/14/2014 12:54 PM INTERNAL COMMUNICATIONS MANAGER Respiratory Rate 24 05/14/2014 12:54 PM INTERNAL COMMUNICATIONS MANAGER Oxygen Saturation 99% 05/14/2014 1:00 PM INTERNAL COMMUNICATIONS MANAGER Inhaled Oxygen Concentration - - Weight 77.1 kg (170 lb) 05/14/2014 12:54 PM INTERNAL COMMUNICATIONS MANAGER Height 167.6 cm (5' 6) 05/14/2014 12:54 PM INTERNAL COMMUNICATIONS MANAGER Body Mass Index 27.44 05/14/2014 12:54 PM INTERNAL COMMUNICATIONS MANAGER documented in this encounter Discharge Instructions Discharge [...] directed by your doctor today. Before using [id number] medications, ask your doctor and make sure [...] contain Tylenol?? (acetaminophen), including Vicodin??, Tylenol #3??, Sterling??, Lortab??, and Percocet??. You should not take [...] if there is anything that worries you. RNAL COMMUNICATIONS MANAGER documented in this encounter Medications at [...] - 05/14/2014 4:22 PM CST Pt sleeping. RNAL COMMUNICATIONS MANAGER Meredith Garcia RN - 05/14/2014 4:22 PM CST td RNAL COMMUNICATIONS MANAGER Ailin Lucas RN - 05/14/2014 2:22 PM CST Pt to U/S at this time. RNAL COMMUNICATIONS MANAGER Carlos Lee MD - 05/14/2014 1:17 PM [...] nausea, vomiting, diarrhea, dysuria, or back pain. [facility] IMAGING CT ABDOMEN PELVIS W [...] as needed for nausea Prem Turner 05/14/2014 [facility] EMERGENCY DEPARTMENT I, Prem Turner, am serving as a scribe at 1:42 PM on 05/14/2014 to document services personally performed by Dr. Lee, based on my observations and the provider's statements to me. Carlos Lee MD 05/14/14 [id number] RNAL COMMUNICATIONS MANAGER Lashae Valentine RN - 05/14/2014 12:56 PM CST Patient presents with severe left lower abdominal pain, rating her pain a 10 on a 1-10 scale. Of note, patient had an abdominal CT yesterday with normal results. Pain persists, increasing in severitylast evening. RNAL COMMUNICATIONS MANAGER documented in this encounter Plan of Treatment Not on filedocumented as of this encounter Procedures Procedure Name Priority Date/Time Associated Comments Diagnosis OCCULT BLOOD STOOL STAT 05/14/2014 3:24 PM Chronic abdomina l Results for this INTERNAL COMMUNICATIONS MANAGER pain procedure are i n the results section. WET PREPARATION STAT 05/14/2014 3:24 PM Chronic abdominal R esults for this INTERNAL COMMUNICATIONS MANAGER pain procedure are i n the results section. NEISSERIA GONORRHOEAE STAT 05/14/2014 3:24 PM Chronic abdom inal Results for this PCR INTERNAL COMMUNICATIONS MANAGER pain procedure are i n the results section. CHLAMYDIA TRACHOMATIS STAT 05/14/2014 3:24 PM Chronic abdom inal Results for this PCR INTERNAL COMMUNICATIONS MANAGER pain procedure are i n the results section. US PELVIS COMPLETE W STAT 05/14/2014 3:03 PM R esults for this TRANSVAGINAL AND INTERNAL COMMUNICATIONS MANAGER procedure a re in DOPPLER LIMITED the results section. ROUTINE UA WITH STAT 05/14/2014 2:39 PM Chronic abdominal R esults for this MICROSCOPIC INTERNAL COMMUNICATIONS MANAGER pain procedure are i n the results section. LACTIC ACID STAT 05/14/2014 2:00 PM Results f or this INTERNAL COMMUNICATIONS MANAGER procedure are i n the results section. CBC WITH PLATELETS & STAT 05/14/2014 1:00 PM R esults for this DIFFERENTIAL INTERNAL COMMUNICATIONS MANAGER procedure are i n the results section. LIPASE STAT 05/14/2014 1:00 PM Results f or this INTERNAL COMMUNICATIONS MANAGER procedure are i n the results section. COMPREHENSIVE STAT 05/14/2014 1:00 PM Results for this METABOLIC PANEL INTERNAL COMMUNICATIONS MANAGER procedure ar e in the results section. documented in this encounter Results (ABNORMAL) Stool: occult blood (05/14/2014 3:24 PM INTERNAL COMMUNICATIONS MANAGER) [facility] Method Time Signature Occult Blood Positive (A) NEG [facility] Specimen Anatomical Collection Method Collection Time Receive d Time (Source) Location / / Volume Laterality Stool specimen STOOL SPECIMEN / 05/14/2014 3:24 PM 3:40 (specimen) Unknown INTERNAL COMMUNICATIONS MANAGER PM INTERNAL COMMUNICATIONS MANAGER Carlos Lee MD LAB - STOOLS ORDERABLES Performing Organization Address City/State/ZIP Code Phon e Number [place] [id number] [address] [place] [address] [address] 7 Neisseria gonorrhoea PCR (05/14/2014 3:24 PM INTERNAL COMMUNICATIONS MANAGER) Component Value Ref Test Analysis Performed At [facility] Method Time Signature Specimen Vagina [facility] N Gonorrhea Negative NEG [facility] PCR Negative for N. gonorrhoeae rRNA by transcripti on mediated amplification. [place] [facility] A negative result by transc ription mediated amplification does not preclude the [facility] presence of N. gonorrhoeae infection because re sults are dependent on proper BANK and adequate collection, absence of inhibitors, and suffici ent rRNA to be detected. Specimen Anatomical Collection Method Collection Time Receive d Time (Source) Location / / Volume Laterality Vaginal swab 05/14/2014 3:24 PM 5 3:39 (specimen) INTERNAL COMMUNICATIONS MANAGER PM INTERNAL COMMUNICATIONS MANAGER Carlos Lee MD LAB - MICRO GENERAL ORDERABL ES Performing Organization Address City/[facility]/ZIP Code Phon e Number [address] [address] [facility] [address], [place] [address] Chlamydia trachomatis PCR (05/14/2014 3:24 PM INTERNAL COMMUNICATIONS MANAGER) Component Value Ref Test Analysis Performed At [facility] Beat.no Range Method Time Signature Specimen Vagina [facility] Chlamydia Negative NEG [facility] Trachomatis Negative for C. trachomatis rRNA by district director mediated amplification. [place] [facility] PCR A negative result by transc ription mediated amplification does not preclude the [facility] presence of C. trachomatis infection because re sults are dependent on proper BANK and adequate collection, absence of inhibitors, and suffici ent rRNA to be detected. Specimen Anatomical Collection Method Collection Time Receive d Time (Source) Location / / Volume Laterality Vaginal swab 05/14/2014 3:24 PM 5 3:39 (specimen) INTERNAL COMMUNICATIONS MANAGER PM INTERNAL COMMUNICATIONS MANAGER Carlos Lee MD LAB - MICRO GENERAL ORDERABL ES Performing Organization Address [facility] Phon e Number [address] [phone] [facility] [address], [place] [address] 7 Wet prep (05/14/2014 3:24 PM INTERNAL COMMUNICATIONS MANAGER) [facility] Method Time Signature Specimen Vagina [facility] Wet Prep Few PMNs seen [place] No Trichomonas seen [facility] No yeast seen HOSPITAL No clue cells seen Micro Report FINAL [place] Status 05/14/2014 [facility] Specimen Anatomical Collection Method Collection Time Receive d Time (Source) Location / / Volume Laterality Vaginal swab 05/14/2014 3:24 PM 5 3:39 (specimen) INTERNAL COMMUNICATIONS MANAGER PM INTERNAL COMMUNICATIONS MANAGER Carlos Lee MD LAB - MICRO GENERAL ORDERABL ES Performing Organization Address City/[facility]/ZIP Code Phon e Number [facility] [address] [phone] [facility] [address] [address] 7 [place] Pelvic Complete w Transvaginal & Abd/Pel Duplex Limited (05/14/2014 3:03 PM INTERNAL COMMUNICATIONS MANAGER) Anatomical Region Laterality Modality Abdomen/Pelvis Ultrasound Specimen (Source) Anatomical Location Collection Method / Collectio n Time Received Time / Laterality Volume Impressions 05/14/2014 3:48 PM INTERNAL COMMUNICATIONS MANAGER IMPRESSION: No torsion demonstrated. Small cyst in the right ovary. ZINA MURRAY MD Narrative 05/14/2014 3:48 PM INTERNAL COMMUNICATIONS MANAGER ULTRASOUND PELVIS ??WITH TRANSVAGINAL IMAGING ??05/14/2014 3:03 [...] (ABNORMAL) UA with Microscopic (05/14/2014 2:39 PM INTERNAL COMMUNICATIONS MANAGER) [facility] Method Time Signature Color Urine Yellow [facility] Appearance Urine Clear [facility] Glucose Urine Negative NEG mg/dL [facility] Bilirubin Urine Negative NEG [facility] Ketones Urine Negative NEG mg/dL [facility] Specific [place] 1.016 1.003 - [place] Urine 1.035 [facility] Blood Urine Negative NEG [facility] pH Urine 6.0 5.0 - 7.0 [facility] Protein Albumin Negative NEG mg/dL [place] Urine [facility] Urobilinogen Normal 0.0 - 2.0 [place] mg/dL mg/dL [facility] Nitrite Urine Negative NEG [facility] Leukocyte Negative NEG [place] Esterase Urine [facility] Source [facility] WBC Urine <1 0 - 2 [facility] RBC Urine <1 0 - 2 [facility] Mucous Urine Present (A) NEG /LPF [facility] Specimen Anatomical Location Collection Method Collection Time Received Time (Source) / Laterality / Volume Urine specimen URINE SPECIMEN 05/14/2014 2:39 05/14/19 15 3:07 (specimen) COLLECTION, PM INTERNAL COMMUNICATIONS MANAGER PM INTERNAL COMMUNICATIONS MANAGER CATHETERIZED / Unknown Carlos Lee MD LAB - URINE ORDERABLES Performing Organization Address City/[facility]/[address] [address] [place] [address] [address], [place] [address] 7 Lactic acid (05/14/2014 2:00 PM INTERNAL COMMUNICATIONS MANAGER) athologist Signature Lactic Acid 1.0 0.4 - 2.0 [place] mmol/[facility] Specimen Anatomical Collection Method Collection Time Receive d Time (Source) Location / / Volume Laterality Blood specimen 05/14/2014 2:00 PM 015 2:25 (specimen) INTERNAL COMMUNICATIONS MANAGER PM INTERNAL COMMUNICATIONS MANAGER Carlos Lee MD LAB - BLOOD ORDERABLES Performing Organization Address City/[facility] [address], [place] [address] [facility] [address], [place] [address] 7 Lipase (05/14/2014 1:00 PM INTERNAL COMMUNICATIONS MANAGER) athologist Signature Lipase 154 73 - 393 [facility] U/[facility] Comment: Effective 11/10/2013, the reference range for this assay has changed to reflect new instrumentation/methodology. Specimen Anatomical Collection Method Collection Time Receive d Time (Source) Location / / Volume Laterality Blood specimen 05/14/2014 1:00 PM 015 2:24 (specimen) INTERNAL COMMUNICATIONS MANAGER PM INTERNAL COMMUNICATIONS MANAGER Carlos Lee MD LAB - BLOOD ORDERABLES Performing Organization Address City/State/ZIP Code Phon e Number M [facility] [address], [place] [address] [facility] [address], [place] [address] 7 (ABNORMAL) Comprehensive metabolic panel (05/14/2014 1:00 PM INTERNAL COMMUNICATIONS MANAGER) athologist Signature Sodium 136 133 - 144 [place] mmol/L [facility] Potassium 3.9 3.4 - 5.3 [place] mmol/L [facility] Chloride 106 94 - 109 [place] [facility] Carbon Dioxide 23 20 - 32 [place] mmol/L [facility] Anion Gap 7 3 - 14 [place] mmol/L [facility] Glucose 85 70 - 99 [place] mg/dL [facility] Comment: Effective 11/10/2013, the reference range for this assay has changed to reflect new instrumentation/methodology. Urea Nitrogen 14 7 - 30 mg/dL [facility] Comment: Effective 11/10/2013, the reference range for this assay has changed to reflect new instrumentation/methodology. Creatinine 0.75 0.52 - 1.04 mg/dL [facility] GFR Estimate 90 >60 mL/min/1.7m2 [facility] Comment: Non GFR Calc GFR Estimate If Black >90 >60 mL/min/1.7m2 F [facility] GFR Calc HOSP ITAL Calcium 8.4 (L) 8.5 - 10.1 mg/dL [facility] Comment: Effective 11/10/2013, the reference range for this assay has changed to reflect new instrumentation/methodology. Bilirubin Total 0.3 0.2 - 1.3 mg/dL [facility] Albumin 3.5 3.4 - 5.0 g/dL [facility] Protein Total 7.4 6.8 - 8.8 g/dL [facility] Alkaline Phosphatase 68 40 - 150 U/L [facility] ALT 22 0 - 50 U/L [facility] HOS PITAL AST 16 0 - 45 U/L [facility] HOS PITAL Specimen Anatomical Collection Method Collection Time Receive d Time (Source) Location / / Volume Laterality Blood specimen 05/14/2014 1:00 PM 015 2:24 (specimen) INTERNAL COMMUNICATIONS MANAGER PM INTERNAL COMMUNICATIONS MANAGER Carlos Lee MD LAB - BLOOD ORDERABLES Performing Organization Address City/State/ZIP Code Phon e Number M [facility] [address], [place] [address] [facility] [address], [place] [address] 7 CBC with platelets differential (05/14/2014 1:00 PM INTERNAL COMMUNICATIONS MANAGER) [facility] Method Time Signature WBC 8.3 4.0 - [place] 11.0 [facility] 10e9/[facility] RBC Count 4.59 3.8 - 5.2 [place] 10e12/L [facility] Hemoglobin 13.4 11.7 - [place] 15.7 g/dL [facility] Hematocrit 40.2 35.0 - [place] 47.0 % [facility] MCV 88 78 - 100 [facility] MCH 29.2 26.5 - [facility] 33.0 pg [facility] MCHC 33.3 31.5 - [place] 36.5 g/dL [facility] RDW 13.2 10.0 - [place] 15.0 % [facility] Platelet Count 248 150 - [address] Diff Method Automated [facility] % Neutrophils 74.9 % [facility] % Lymphocytes 19.9 % [facility] % Monocytes 3.6 % [facility] % Eosinophils 1.1 % [facility] % Basophils 0.1 % [facility] % Immature 0.4 % [place] Granulocytes [facility] Absolute 6.2 1.6 - 8.3 [place] Neutrophil 10e9/L [facility] Absolute 1.6 0.8 - 5.3 [place] Lymphocytes 10e9/L [facility] Absolute 0.3 0.0 - 1.3 [place] Monocytes 10e9/L [facility] Absolute 0.1 0.0 - 0.7 [place] Eosinophils 10e9/[facility] Absolute 0.0 0.0 - 0.2 [place] Basophils 10e9/L [facility] Abs Immature 0.0 0 - 0.4 [place] Granulocytes 10e9/L [facility] Specimen Anatomical Collection Method Collection Time Receive d Time (Source) Location / / Volume Laterality Blood specimen 05/14/2014 1:00 PM 015 2:24 (specimen) INTERNAL COMMUNICATIONS MANAGER PM INTERNAL COMMUNICATIONS MANAGER Carlos Lee MD LAB - BLOOD ORDERABLES Performing Organization Address City/State/ZIP Code Phon e Number [place] [address] [address] [facility] [address] [address] documented in this encounter Visit Diagnoses Diagnosis Chronic abdominal pain Abdominal pain, unspecified site documented in this encounter Administered Medications Inactive Administered Medications - up to 3 most recent administrations Medication Order MAR Action Action Date Dose Rate Site diphenhydrAMINE (BENADRYL) Given 05/14/2014 2:06 PM INTERNAL COMMUNICATIONS MANAGER 50 mg injection 50 mg 50 mg, Intravenous, ONCE, On 05/14/14 at 1352, For 1 dose ketorolac (TORADOL) injection 30 mg Given 05/14/2014 2:06 PM INTERNAL COMMUNICATIONS MANAGER 30 mg 30 mg, Intravenous, ONCE, [...] Recently Administered Medications Times are shown in INTERNAL COMMUNICATIONS MANAGER. Scheduled Medication Order 05/12/2014 05/13/2014 05/14/2014 diphenhydrAMINE [...] extravasation. documented in this encounter Care Teams Roll Icer Relationship Specialty Start Date End Date Jamin Silva MD PCP - General Family Medicine - Sports 06/01/13 Medicine documented as of this encounter
--- OUTSIDE RECORDS SUMMARY | 2022-03-21 17:02 | XMS_ITS | Encounter Summary ---
:1980 Author Organization [facility] Address [address] [place] [address] Care Team Providers Name Role Phone Jamin Silva MD Primary Care Provider Reason for Visit Reason Comments Flank Pain Encounter Details Date Type Department Care Team Description 02/08/2014 Emergency [facility] Mili Tate A bdominal pain, left [facility] t lower quadrant [address] [facility] (Primary Dx) [facility] [id number] 28[address] [facility] [phone] [place], [place] [address] (Wo rk) Social History [...] directed by your doctor today. Before using [id number] medications, ask your doctor and make sure [...] contain Tylenol?? (acetaminophen), including Vicodin??, Tylenol #3??, Washington??, Lortab??, and Percocet??. You should not take [...] Patient presents to the ED with female clod puller. Review of Systems Constitutional: Negative for fever [...] follow-up was reviewed. The patient was prescribed Washington and Zofran. Impression & Plan Medical Decision [...] I discharged the patient home with oral Washington for pain as well as Zofran as [...] and the provider's statements to me. 02/08/2014 [facility] EMERGENCY [facility]PARTMENT Mili Tate MD 02/08/14 [...] UA with Microscopic (02/08/2014 11:15 AM CDT) [facility] gist Method Time Signature Color Urine Light Yellow [facility] Appearance Urine Clear [facility] Glucose Urine Negative NEG mg/dL [facility] Bilirubin Urine Negative NEG [facility] Ketones Urine Negative NEG mg/dL [facility] Specific [place] 1.010 1.003 - [place] Urine 1.035 [facility] Blood Urine Negative NEG [facility] pH Urine 6.5 5.0 - 7.0 [place] pH [facility] Protein Albumin Negative NEG mg/dL [facility] Urobilinogen Normal 0.0 - 2.0 [place] mg/dL mg/dL [facility] Nitrite Urine Negative NEG [facility] Leukocyte Negative NEG [place] Esterase Urine [facility] Source Midstream [facility] WBC Urine <1 0 - 2 [place] /HPF [facility] RBC Urine 0 0 - 2 [place] /HPF [facility] Bacteria Urine Few (A) NEG /HPF [facility] Squamous <1 0 - 1 [place] Epithelial /HPF /HPF [facility] LAB Specimen Anatomical Collection Method Collection Time Receive d Time (Source) Location / / Volume Laterality Urine specimen URINE SPECIMEN 02/08/2014 11:15 014 (specimen) OBTAINED BY CLEAN AM CDT 11:20 AM C DT CATCH PROCEDURE / Unknown Mili Tate MD LAB - URINE ORDERABLES Performing Organization Address City/[facility]/ZIP Code Phon e Number M [facility] [address] [place], [place] [address] [facility] HCG QUALitative (02/08/2014 10:44 AM CDT) Patholo gist Method Time Signature HCG Qualitative Negative NEG [facility] LAB Specimen Anatomical Collection Method Collection Time Receive d Time (Source) Location / / Volume Laterality Blood specimen 02/08/2014 10:44 4 (specimen) AM CDT 10:53 AM CDT Mili Tate MD LAB - BLOOD ORDERABLES Performing Organization Address [facility] Phon e Number M [facility] [address] [place], [place] [address] [facility] Basic metabolic panel (02/08/2014 10:44 AM CDT) P athologist Signature Sodium 138 133 - 144 [place] mmol/L [facility] Potassium 4.1 3.4 - 5.3 [place] mmol/L [facility] Chloride 108 94 - 109 [place] mmol/L [facility] Carbon Dioxide 26 20 - 32 [place] mmol/L [facility] Anion Gap 4 3 - 14 [place] mmol/L [facility] Glucose 94 70 - 99 [place] mg/dL [facility] Comment: Effective 11/10/2013, the reference range for this assay has changed to reflect new instrumentation/methodology. Urea Nitrogen 13 7 - 30 mg/dL [facility] Comment: Effective 11/10/2013, the reference range for this assay has changed to reflect new instrumentation/methodology. Creatinine 0.84 0.52 - 1.04 mg/dL [facility] GFR Estimate 78 >60 mL/min/1.7m2 [facility] Comment: Non GFR Calc GFR Estimate If Black >90 >60 mL/min/1.7m2 F [facility] GFR Calc [facility] Calcium 8.8 8.5 - 10.1 mg/dL [facility] Comment: Effective 11/10/2013, the reference range for this assay has changed to reflect new instrumentation/methodology. Specimen Anatomical Collection Method Collection Time Receive d Time (Source) Location / / Volume Laterality Blood specimen 02/08/2014 10:44 4 (specimen) AM CDT 10:53 AM CDT Mili Tate MD LAB - BLOOD ORDERABLES Performing Organization Address City/State/ZIP Code Phon e Number M [facility] [address] [place] [address] [facility] CBC with platelets differential (02/08/2014 10:44 AM CDT) [facility] gist Method Time Signature WBC 5.7 4.0 - [place] 11.0 [facility] 10e9/[facility] RBC Count 4.42 3.8 - 5.2 [place] 10e12/L [facility] Hemoglobin 13.0 11.7 - [place] 15.7 g/dL [facility] Hematocrit 38.9 35.0 - [place] 47.0 % [facility] MCV 88 78 - 100 [place] fl [facility] MCH 29.4 26.5 - [place] 33.0 pg [facility] MCHC 33.4 31.5 - [place] 36.5 g/dL [facility] RDW 12.9 10.0 - [place] 15.0 % [facility] Platelet Count 214 150 - 450 [place] 10e9/L [facility] Diff Method Automated [facility] LAB % Neutrophils 62.8 % [facility] % Lymphocytes 25.0 % [facility] % Monocytes 9.9 % [facility] % Eosinophils 1.9 % [facility] % Basophils 0.2 % [facility] % Immature 0.2 % [place] Granulocytes [facility] Absolute 3.6 1.6 - 8.3 [place] Neutrophil 10e9/L [facility] Absolute 1.4 0.8 - 5.3 [place] Lymphocytes 10e9/L [facility] Absolute 0.6 0.0 - 1.[address] [place] Monocytes [address] [place] [address] LAB Absolute 0.1 0.0 - 0.7 [place] Eosinophils [address] [place] [address] LAB Absolute 0.0 0.0 - 0.[address] [place] Basophils [address] [place] [address] LAB Abs Immature 0.0 0 - 0.[address] LAB Specimen Anatomical Collection Method Collection Time Receive d Time (Source) Location / / Volume Laterality Blood specimen 02/08/2014 10:44 4 (specimen) AM CDT 10:53 AM CDT Mili Tate MD LAB - BLOOD ORDERABLES Performing Organization Address City/State/ZIP Code Phon e Number [place] [address] [place], [place] [address] [facility] documented in [...] doses. documented in this encounter Care Teams Application Specialist Relationship Specialty Start Date End Date Jamin Silva MD PCP - General Family Medicine - Sports 06/01/13 Medicine documented as of this encounter
--- OUTSIDE RECORDS SUMMARY | 2022-03-21 17:02 | XMS_ITS | Encounter Summary ---
:1980 Author Organization [facility] Address [address] [place] [address] Care Team Providers Name Role Phone Jamin Silva MD Primary Care Provider Reason for Visit Reason Comments Pharyngitis Encounter Details Date Type Department Care Team Description [facility]/01/2013 [facility] Emergency Dep t (Primary Dx) [address] EM[facility] [phone] [address] [facility] [phone] [address] [place], [place] [id number] (Wo rk) Social History Tobacco Use Types Packs/Day Years Used Date Smoking Tobacco: Never Assessed Sex Assigned at Date Recorded Not on file documented as of this encounter Last Filed Vital Signs Vital Sign Reading Time Taken Comments Blood Pressure 121/81 06/01/2013 9:22 PM [employer] Pulse 76 06/01/2013 8:19 PM [employer] Temperature 36.7 ??C (98.1 ??F) 06/01/2013 8:19 PM [employer] Respiratory Rate 16 06/01/2013 9:22 PM [employer] Oxygen Saturation 99% 06/01/2013 9:22 PM [employer] Inhaled Oxygen Concentration - - Weight 79.4 kg (175 lb) 06/01/2013 8:19 PM [employer] Height - - Body Mass Index - - documented in this encounter Discharge Instructions Discharge InstructionsShon Patel MD - 06/01/2013 9:03 PM [employer] Home Back SP RU CH *PHARYNGITIS (Sore [...] ?? Muffled voice ?? New rash ?? [phone] Alfredo [facility], [address] [place] [address]. All rights reserved. This information is not intended as a substitute for professional medical care. Always follow your healthcare professional's instructions. P MATERIALS BUYER documented in this encounter Medications at Time [...] provider's statements to me. Christine Agudelo 06/01/2013 [facility] EMERGENCY DEPARTMENT Shon Patel MD 06/02/13 0032 [employer] Lindsay Gregorio RN - 06/01/2013 8:31 PM CST MD at bedside. P MATERIALS BUYER Lindsay Gregorio, ANGE - 06/01/2013 8:18 PM CST severe sore throat for 3 days, was sick a couple weeks ago with vomiting and fever 102.5, no othercomplaints at this time P [employer]S BUYER documented in this encounter Plan of Treatment Not on filedocumented as of this encounter Procedures Procedure Name Priority Date/Time Associated Diagnosis Comme nts RAPID STREP SCREEN STAT 06/01/2013 8:17 PM Res ults for this THROAT SWAB [employer] procedure are i n the results section. BETA HEMOLYTIC Routine 06/01/2013 8:17 PM Results for this STREP GROUP A [employer] procedure are in CULTURE the results section. documented in this encounter Results Beta strep group A culture (06/01/2013 8:17 PM [employer]) Component Value Ref Test Analysis Performed At [facility] [place] Method Time Signature Specimen Throat [facility] Culture Micro No Beta [facility] Streptococcus MICROBIOLOGY isolated Micro Report FINAL 06/03/2013 [facility] Status MICROBIOLOGY Specimen Anatomical Collection Method Collection Time Receive d Time (Source) Location / / Volume Laterality 06/01/2013 8:17 PM 4 8:27 [employer] PM [employer] Shon Patel MD LAB - MICRO GENERAL ORDERABL ES Performing Organization Address City/State/ZIP Code Phon e Number [facility] [address] [place] [address] [facility] MICROBIOLOGY Rapid strep screen (06/01/2013 8:17 PM [employer]ER) Component Value Ref Test Analysis Performed At [facility] Method Time Signature Specimen Throat [facility] Rapid Strep A NEGATIVE: No Group A strepto coccal antigen detected by immunoassay, await LITHOPOLIS Screen culture report. [facility] Micro Report FINAL 06/01/2013 [facility] LAB Specimen Anatomical Collection Method Collection Time Receive d Time (Source) Location / / Volume Laterality Specimen from 06/01/2013 8:17 PM 06/01/19 14 8:27 throat [employer] PM [employer] (specimen) Shon Patel MD LAB - MICRO GENERAL ORDERABL ES Performing Organization Address City/State/ZIP Code Phon e Number [facility] [address] [place], [place] [address] [facility] documented in this encounter Visit Diagnoses Diagnosis Acute pharyngitis - Primary documented in this encounter Administered Medications Inactive Administered Medications - up to 3 most recent administrations Medication Order MAR Action Action Date Dose Rate Site dexamethasone (DECADRON) tablet 12 Given 06/01/2013 8:39 PM [employer] 12 mg mg 12 mg, Oral, ONCE, On Fri06/01/13 at 2044, For 1 dose documented in this encounter Active and Recently Administered Medications Times are shown in [employer]. Scheduled Medication Order 05/30/2013 05/31/2013 06/01/2013 dexamethasone (DECADRON) tablet 12 mg (COMPLETED) 2038 (Given - Provider: Lindsay Gregorio RN) 12 mg, Oral, ONCE, Fri06/01/13 at 5, For 1 dose documented in this encounter Care Teams Cleat Feeder Relationship Specialty Start Date End Date Jamin Silva MD PCP - General Family Medicine - Sports 06/01/13 Medicine documented as of this encounter
--- OUTSIDE RECORDS SUMMARY | 2022-03-21 17:02 | XMS_ITS | Encounter Summary ---
:1980 Author Organization [facility] Address [address] [place] [address] Care Team Providers Name Role Phone Jamin Silva MD Primary Care Provider Reason for Visit Reason Comments Abdominal Pain Encounter Details Date Type Department Care Team Description 06/07/2014 Emergency [facility] Quintin Benjamin Chronic pelvic pain in [facility] Emergency Dep ralph Nova MD female [address] [facility] [phone] 48[address] [facility] [phone] [place], [place] [address] (Wo rk) Social History [...] Comments Blood Pressure 134/81 06/07/2014 5:08 PM MEDICAL ASSISTANT DERMATOLOGY Pulse 81 06/07/2014 5:08 PM MEDICAL ASSISTANT DERMATOLOGY Temperature 36.9 ??C (98.5 ??F) 06/07/2014 2:54 PM MEDICAL ASSISTANT DERMATOLOGY Respiratory Rate 16 06/07/2014 5:08 PM MEDICAL ASSISTANT DERMATOLOGY Oxygen Saturation 99% 06/07/2014 5:08 PM MEDICAL ASSISTANT DERMATOLOGY Inhaled Oxygen Concentration - - Weight - - Height - - Body Mass Index - - documented in this encounter Discharge Instructions Discharge InstructionsQuintin Castro MD - 06/07/2014 4:56 PM MEDICAL ASSISTANT DERMATOLOGY Chronic Pain Resources *Many of the listed clinics will need a physician referral and medical records sent prior to making an appointment. Insuranceproviders often need to be called for acceptance. Clinic Location/Contact Information/Hours Information [facility] [address] [place], [place] [phone] Sub acute and chronic pain - interventional pain medicine available [facility] Twelfth Floor [address] [place] [address] M-TH: 7:30 am - 5:00 pm F: 7:30 am - 4:00 pm Sub acute and chronic pain - interventional pain medicine available [facility] Medical Pain Specialist Dr. Stephan Bojorquez [address] [facility], [address] [place], [place] [address] M-F: 8:00 am - 5:30 pm Acute and chronic pain management including medication management. [facility] Chronic Pain Dr. Valdo Fernandez [address] [place], [place] [address] M-F: 7:00 am - 4:30 pm Inpatient residential chronic pain program and outpatient clinic, focus on rehabilitative pain management. [facility] [address] [facility], [address] [place], [place] [phone] M-F: 8:00 am - 4:00 pm Specializing in interventional pain management including epidural injections and medication management. [facility] [address] [place], [place] [phone] M-TH: 8:00 am - 9:00 pm F: 8:00 am - 4:30 pm Integrative medicine services including massage therapy, reflexology, mind/bodytherapy, guided imagery, acupuncture, exercises physiology, healing elementary instructional coach, and integrative nutrition. [facility] [address] [facility], [address] [place] [address] *Other [facility] Locations Available M-F: Depends on clinic Chronic, cancer and spinal pain syndromes - focus on interventions, rehabilitation, alternative medicine and behavioral health. Offers an outpatient four week chronic pain program, four hours daily, Friday through Friday. [facility] [address] [facility], [address] [place] [address] M-F: 8:00 am - 5:00 pm Specializing [...] if there is anything that worries you. CAL ASSISTANT DERMATOLOGY documented in this encounter Medications at Time [...] for alcohol use. [facility] Review [facility] Systems Constitutional: Negative for fever [...] ibuprofen and percocet. On review of the [employer]EL[employer] literature, patient was recently given 15 percocet [...] provider's statements to me. Yissel Rodgers 06/07/2014 [facility] EMERGENCY DEPARTMENT Quintin Castro MD 06/13/14 0119 CAL ASSISTANT DERMATOLOGY Raegan Llamas, RN - 06/07/2014 2:54 PM CST Abdomen pain since January of 2014. Seen by her OB yesterday and told she has endometriosis. Pain isworse today. CAL ASSISTANT DERMATOLOGY documented in this encounter Plan of Treatment Not on filedocumented as of this encounter Procedures Procedure Name Priority Date/Time Associated Comments Diagnosis HCG QUALITATIVE URINE STAT 06/07/2014 3:29 PM Results for this MEDICAL ASSISTANT DERMATOLOGY procedure are i n the results section. ROUTINE UA WITH STAT 06/07/2014 3:29 PM Result s for this MICROSCOPIC REFLEX TO MEDICAL ASSISTANT DERMATOLOGY proced ure are in CULTURE the results section. documented in this encounter Results HCG qualitative urine (06/07/2014 3:29 PM MEDICAL ASSISTANT DERMATOLOGY) athologist Signature HCG Qual Urine Negative NEG [facility] Specimen Anatomical Collection Method Collection Time Receive d Time (Source) Location / / Volume Laterality Urine specimen URINE SPECIMEN 06/07/2014 3:29 PM 06/07 4:24 (specimen) OBTAINED BY CLEAN MEDICAL ASSISTANT DERMATOLOGY PM MEDICAL ASSISTANT DERMATOLOGY CATCH PROCEDURE / Unknown Quintin Castro MD LAB - URINE ORDERABLES Performing Organization Address City/State/ZIP Code Phon e Number M [facility] [address] [phone] [facility] [address] [place], [place] [address] UA with microscopic reflex to culture (06/07/2014 3:29 PM MEDICAL ASSISTANT DERMATOLOGY) [facility] Method Time Signature Color Urine Straw [facility] Appearance Urine Clear [facility] Glucose Urine Negative NEG mg/dL [facility] Bilirubin Urine Negative NEG [facility] Ketones Urine Negative NEG mg/dL [facility] Specific [place] 1.007 1.003 - [place] Urine 1.035 [facility] Blood Urine Negative NEG [facility] pH Urine 5.0 5.0 - 7.0 [place] pH [facility] Protein Albumin Negative NEG mg/dL [facility] Urobilinogen Normal 0.0 - 2.0 [place] mg/dL mg/dL [facility] Nitrite Urine Negative NEG [facility] Leukocyte Negative NEG [place] Esterase Urine [facility] Source Midstream [facility] WBC Urine <1 0 - 2 [place] /[facility] RBC Urine <1 0 - 2 [place] /[facility] Squamous <1 0 - 1 [place] Epithelial /HPF /HPF [facility] Specimen Anatomical Collection Method Collection Time Receive d Time (Source) Location / / Volume Laterality Urine specimen URINE SPECIMEN 06/07/2014 3:29 PM 06/07 4:24 (specimen) OBTAINED BY CLEAN MEDICAL ASSISTANT DERMATOLOGY PM MEDICAL ASSISTANT DERMATOLOGY CATCH PROCEDURE / Unknown Quintin Castro MD LAB - URINE ORDERABLES Performing Organization Address City/State/ZIP Code Phon e Number [place] [address] [address] [place] [phone] 7 documented in this encounter Visit Diagnoses Diagnosis Chronic pelvic pain in female Unspecified symptom associated with fema le genital organs documented in this encounter Administered Medications Inactive Administered Medications - up to 3 most recent administrations Medication Order MAR Action Action Date Dose Rate Site ibuprofen (ADVIL,MOTRIN) tablet Given 06/07/2014 4:13 PM MEDICAL ASSISTANT DERMATOLOGY 600 mg 600 mg 600 mg, Oral, ONCE, On Fri06/07/14 at 1611, For 1 dose oxyCODONE-acetaminophen (PERCOCET) 5-325 MG Given 05/16 4:13 PM MEDICAL ASSISTANT DERMATOLOGY 1 tablet per tablet 1 tablet 1 tablet, Oral, ONCE, On Fri06/07/14 at 1611, For 1 dose, Maximum acetaminophen dose from all sources= 75 mg/kg/day not to exceed 4 grams documented in this encounter Active and Recently Administered Medications Times are shown in MEDICAL ASSISTANT DERMATOLOGY. Scheduled Medication Order 06/05/2014 06/06/2014 06/07/2014 ibuprofen [...] grams documented in this encounter Care Teams Physical Science Technician Relationship Specialty Start Date End Date Jamin Silva MD PCP - General Family Medicine - Sports 06/01/13 Medicine documented as of this encounter
[2022-03-21] MEDS: 0.9 % SODIUM CHLORIDE 1000 ml 1,000 ML IV (17:29)
[2022-03-21] MEDS: KETOROLAC 15 MG/ML inj IVP (17:29)
[2022-03-21] MEDS: DICYCLOMINE HCL 10 MG CAPSULE PO (17:30)
[2022-03-21 17:43] LABS: Lactate* 0.7 mmol/L (0.5-1.9)
[2022-03-21 17:44] LABS: Basophils Absolute Auto 0.01 K/uL (0.00-0.30); Basophils Percent Auto 0.1 % (0.0-3.0); Eosinophils Absolute Auto 0.05 K/uL (0.00-0.50); Eosinophils Percent Auto 0.6 % (0.0-7.0); Hematocrit 38.4 % (33.0-51.0); Immature Granulocytes Abs Auto 0.04 K/uL (0.00-0.30); Immature Granulocytes Pct Auto 0.5 %; Lymphocytes Percent Auto 15.7 % (20-44); Mean Corpuscular HGB Conc 34 gm/dL (32-36); Mean Corpuscular Hemoglobin 30 pg (26-34); Mean Corpuscular Volume 90 fL (80-100); Monocytes Percent Auto 6.1 % (0.0-11.0); Platelet Count* 240 K/uL (140-440); RDW Coefficient of Variation % 12.8 % (11.5-15.5); Red Blood Count 4.27 m/uL (4.00-5.20); White Blood Count* 8.17 K/uL (4.50-11.00)
[2022-03-21 17:46] LABS: Slide Review Reflex No
[2022-03-21 18:05] LABS: Albumin* 4.3 g/dL (3.3-5.0)
[2022-03-21 18:06] LABS: Chloride* 109 mmol/L (96-114); Potassium* 4.3 mmol/L (3.6-5.1); Sodium* 138 mmol/L (135-149)
[2022-03-21 18:08] LABS: Bilirubin Direct* 0.1 mg/dL (0.0-0.5); Bilirubin Total* 0.3 mg/dL (0.1-1.5); Carbon Dioxide* 23 mmol/L (20-32); Creatinine* 0.7 mg/dL (0.5-1.5); Est. Creatinine Clearance* 100.01; Estimated Glomerular Filt Rate 112 ml/min; Total Protein* 6.9 g/dL (6.0-8.3)
[2022-03-21 18:09] LABS: Alanine Aminotransferase* 40 U/L (4-35); Alkaline Phosphatase* 64 U/L (40-150); Aspartate Amino Transferase* 29 U/L (12-35); Blood Urea Nitrogen* 16 mg/dL (5-24); Calcium* 8.8 mg/dL (8.4-10.6); Glucose* 87 mg/dL (60-115); Lipase* 61 U/L (23-300)
[2022-03-21] MEDS: fentaNYL 100 MCG/2 ML inj 25 MCG IVP (18:48)
[2022-03-21 18:52] VITALS: BP 113/70; PULSE 73; RESP 18; O2SAT 95
== END 2022-03-21 19:15 | disposition home or self-care (01) ==
PROVIDERS: Emergency Provider Family Medicine; PCP Family Medicine
DX: R10.2 Pelvic and perineal pain (principal)
CPT/HCPCS: 36415; 74176; 80048; 80076; 81001; 83605; 83690; 85025; 94761; 96374; 96375; 99284; A9270; J1885; J3010; J7030

== ENCOUNTER 2022-04-01 15:07 | Outpatient (CLI) | payer BC, SELFPAY ==
[2022-04-01 17:23] LABS: TSH With Reflex to FT4* 0.971 uIU/mL (0.270-4.200)
[2022-04-04 11:37] LABS: Follicle Stimulating Hormone 5.5 IU/L
== END 2022-04-01 15:08 | disposition home or self-care (01) ==
LOC: NFLDREF 15:08
PROVIDERS: PCP Family Medicine; Visit Provider Obstetrics & Gynecology
DX: R10.2 Pelvic and perineal pain (principal); R61 Generalized hyperhidrosis; N80.9 Endometriosis, unspecified
CPT/HCPCS: 83001; 84443

== ENCOUNTER 2022-04-08 17:39 | Emergency (ER) | payer BC, SELFPAY ==
[2022-04-08 17:45] VITALS: BP 126/77; PULSE 90; RESP 20; TEMP 36.6; O2SAT 97; BMI 27.4
--- NOTE | 2022-04-08 17:57 | ED.ABDPAIN ---
HPI - Abdominal Pain General Time Seen by Provider: 17:57 Date Seen: 04/08/22 Chief Complaint: Abdominal Pain Stated Complaint: Lower R abdominal pain Time Seen by Provider: 04/08/22 17:57 Source: patient, RN notes reviewed and old records reviewed Mode of arrival: ambulatory Limitations: no limitations History of Present Illness HPI narrative: Lizette is a very pleasant 42-year-old female with history of chronic right lower quadrant pain, history of ovarian cysts who comes to the emergency room requesting pain medications. Patient states that she just wants to be comfortable. She has been using Tylenol and ibuprofen for pain at home. She has received narcotic prescriptions from our ER in the past. There has been numerous workups with reassuring CTs. At this time patient is adamant that this is the same pain that she has been experiencing over the past months. She has seen , our emr implementation specialist, and she has surgery scheduled for oophorectomy as well as cautery of any endometrial lesions. Patient has not had fever or chills. Again, this is the same pain she has been dealing with and there is nothing new about it. She denies dysuria hematuria diarrhea or change in her pain. She tried to call the clinic today but they were closed. Patient denies history of addictions or alcohol use. Related Data Home Medications Medication Instructions Recorded Confirmed albuterol sulfate 90 mcg/actuation 2 puff inhalation Q4-6H PRN 10/12/21 04/08/22 aerosol inhaler fluticasone furoate 200 See Rx Instructions inhalation 10/12/21 04/08/22 mcg-vilanterol 25 mcg/dose DAILY inhalation powder Tylenol 01/31/22 04/01/22 ibuprofen 01/31/22 04/01/22 amitriptyline 50 mg tablet 50 mg PO DAILY 04/08/22 04/08/22 Previous Rx's Medication Instructions Recorded omeprazole 20 mg capsule,delayed 20 mg PO QDAY #90 caps 04/04/22 release sertraline 100 mg tablet 100 mg PO DAILY #90 tabs 04/04/22 trazodone 100 mg tablet 250 mg PO QHS #225 tabs 04/04/22 bupropion HCl 300 mg 24 hr tablet, 300 mg PO DAILY #90 tabs 04/05/22 extended release diclofenac sodium 75 mg 75 mg PO BID #180 tabs 04/05/22 tablet,delayed release Allergies Allergy/AdvReac Type Severity Reaction Status Date / Time hydrocodone Allergy Intermediate itchy Verified 04/01/22 14:27 Review of Systems Status of ROS Reports: 6 or more systems reviewed and unremarkable except as noted in History and below Const Denies: fever or chills ENMT Denies: throat pain or difficulty swallowing Cardio Denies: chest pain or shortness of breath with exertion Resp Denies: shortness of breath GI Reports: abdominal pain and nausea; Denies: vomiting, diarrhea or difficulty swallowing Denies: painful urination or urinary frequency PFSH PFSH Medical History Chronic abdominal pain Cyst of left ovary Cyst of right ovary Essential tremor (08/16/07) Gastroesophageal reflux disease (06/16/08) Generalized anxiety disorder History of abnormal cervical Papanicolaou smear History of COVID-19 Insomnia (01/07/14) Menorrhagia Moderate episode of recurrent major depressive disorder (02/23/07) Restless legs syndrome (03/25/12) Surgical History History of laparoscopy History of tubal ligation Status post laparoscopic hysterectomy Family History Father High blood pressure Diabetes Chronic mental illness Mother High blood pressure Chronic mental illness Other ASCVD (arteriosclerotic cardiovascular disease) Social History Narrative: 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 She smokes daily. She drinks alcohol on occasion. She doesn't use recreational drugs. Smoking Status: Current every day smoker What tobacco products do you use: cigarettes Smoking packs per day: 0.5 Smoking cigarettes per day: 10.0 Do you use any of these nicotine containing products: None Second hand tobacco smoke exposure: No How often do you have a drink containing alcohol: monthly or less How many standard drinks containing alcohol do you have on a typical day: 3 or 4 AUDIT-C Alcohol total score: 2 Non-prescribed substance use: denies use and marijuana (any form) Non-prescribed substance use details: edibles, not very often, twice a week Caffeine: No Little interest or pleasure in doing things: several days Feeling down, depressed, or hopeless: nearly every day service: No Exam Narrative: Exam Narrative: Alert and oriented. She is nontoxic in appearance. She clearly appears uncomfortable. Heart with regular rate and rhythm and lungs are clear to auscultation. Abdomen is soft there is some slight tenderness in the right lower quadrant but no significant rebound tenderness. No peritoneal signs. Const: Vital Signs, click to edit/add: Vital Signs - 24 hr 04/08/22 17:45 Temperature 97.8 F Pulse Rate [Pulse Oximeter] 90 Respiratory Rate 20 Blood Pressure [Ri ght Upper Arm] 126/77 Pulse Oximetry 97 Oxygen Delivery Me thod Room Air Documenting provider has reviewed patient's vital signs: yes Course Vital Signs Vital signs: Initial Vital Signs Temperature 97.8 F 04/08/22 17:45 Temperature Source Temporal Artery Scan 04/08/22 17:45 Pulse Rate 90 04/08/22 17:45 Respiratory Rate 20 04/08/22 17:45 Blood Pressure 126/77 04/08/22 17:45 Blood Pressure Mean 93 04/08/22 17:45 Blood Pressure Position Sitting 04/08/22 17:45 Pulse Oximetry 97 04/08/22 17:45 Oxygen Delivery Method 04/08/22 17:45 Vital Signs Temperature 97.8 F 04/08/22 17:45 Pulse Rate 90 04/08/22 17:45 Respiratory Rate 20 04/08/22 17:45 Blood Pressure 126/77 04/08/22 17:45 Pulse Oximetry 97 04/08/22 17:45 Oxygen Delivery Method 04/08/22 17:45 Temperature 97.8 F 04/08/22 17:45 Pulse Rate 90 04/08/22 17:45 Respiratory Rate 20 04/08/22 17:45 Blood Pressure 126/77 04/08/22 17:45 Pulse Oximetry 97 04/08/22 17:45 Oxygen Delivery Method 04/08/22 17:45 MDM - Abdominal Pain MDM Narrative Medical decision making narrative: 1. Chronic abdominal pain-patient is now scheduled for surgery in mid April and has seen her consultants. I do explain to her that we do not typically give narcotics out of the ED for chronic abdominal pain. I would glued do look back in previous notes and there is no warning of this and therefore today is the last day that this will occur. I will give her oxycodone 5 mg 1-2 tabs p.o. q.4-6 hours p.r.n., 8. Via DNART LIMITADA meds. No further narcotics will be issued out of the emergency room and I do impressed this upon her. She is to follow up tomorrow with her OBGYN if she is in need of further pain management. I would recommend continuing to use ibuprofen 800 mg every 8 hours. Even if it does not significantly help with pain it may allow her to use last oxycodone. 2. Disposition-home. No new symptoms tonight to indicate need for blood work or CT. However, if new symptoms arise I would ask her to return to the emergency room for further evaluation. Medical Records Attestation: I reviewed the patient's medical records. Discharge Plan Discharge Clinical Impression: Chronic abdominal pain Patient Disposition: Home, Self-Care Condition: Unchanged Additional Instructions: Continue ibuprofen 800 mg every 8 hours as needed for discomfort. A small amount of oxycodone will be dispensed to you but further amounts will need to come from your primary MD or your specialist. Please return to the emergency room if you have the onset of pain symptoms not consistent with what she been feeling over the past couple months. Prescriptions: No Action albuterol sulfate 90 mcg/actuation HFA aerosol inhaler 2 puff inhalation Q4-6H PRN fluticasone furoate-vilanterol 200-25 mcg/dose blister with device See Rx Instructions inhalation DAILY Rx Instructions: 1 puff inhalation daily; Tylenol ibuprofen amitriptyline 50 mg tablet 50 mg PO DAILY omeprazole 20 mg capsule,delayed release(DR/EC) 20 mg PO QDAY Qty: 90 1RF trazodone 100 mg tablet 250 mg PO QHS Qty: 225 1RF sertraline 100 mg tablet 100 mg PO DAILY Qty: 90 1RF bupropion HCl 300 mg tablet extended release 24 hr 300 mg PO DAILY Qty: 90 0RF diclofenac sodium 75 mg tablet,delayed release (DR/EC) 75 mg PO BID Qty: 180 0RF Follow Up/Referrals: Danny Hernández MD [Primary Care Provider] - Stand Alone Forms: [place] Info Instructions
== END 2022-04-08 18:18 | disposition home or self-care (01) ==
LOC: ED 18:16
PROVIDERS: Emergency Provider Family Medicine; PCP Family Medicine
DX: R10.31 Right lower quadrant pain (principal)
CPT/HCPCS: 99283

== ENCOUNTER 2022-04-27 16:08 | Emergency (ER) | payer BC, SELFPAY ==
[2022-04-27 16:23] VITALS: BP 121/76; PULSE 90; RESP 60; TEMP 36.1; O2SAT 97; BMI 28.1
--- NOTE | 2022-04-27 16:38 | ED_ITS ---
HPI - General Adult General Chief complaint: Abdominal Pain Stated complaint: abdominal pain Time Seen by Provider: 04/27/22 16:33 Source: patient Mode of arrival: ambulatory Limitations: no limitations History of Present Illness HPI narrative: 42-year-old female coming in today complaining of abdominal pain started yesterday. Pain is located in the left lower quadrant radiates to the left flank. She states that she has little bit of dysuria. She denies any increased urinary frequency or urgency. No blood in her urine. She states that she feels nauseated but has not vomited. Denies any fevers or chills. No constipation or diarrhea, last bowel movement was this morning and it was normal. Patient does have a history of chronic abdominal pain however states that this feels different. Patient is status post a left-sided oophorectomy. Related Data Home Medications Medication Instructions Recorded Confirmed albuterol sulfate 90 mcg/actuation 2 puff inhalation Q4-6H PRN 10/12/21 04/27/22 aerosol inhaler fluticasone furoate 200 See Rx Instructions inhalation 10/12/21 04/27/22 mcg-vilanterol 25 mcg/dose DAILY inhalation powder Tylenol 01/31/22 04/01/22 ibuprofen 01/31/22 04/01/22 amitriptyline 50 mg tablet 50 mg PO DAILY 04/08/22 04/27/22 Previous Rx's Medication Instructions Recorded omeprazole 20 mg capsule,delayed 20 mg PO QDAY #90 caps 04/04/22 release sertraline 100 mg tablet 100 mg PO DAILY #90 tabs 04/04/22 trazodone 100 mg tablet 250 mg PO QHS #225 tabs 04/04/22 bupropion HCl 300 mg 24 hr tablet, 300 mg PO DAILY #90 tabs 04/05/22 extended release diclofenac sodium 75 mg 75 mg PO BID #180 tabs 04/05/22 tablet,delayed release Allergies Allergy/AdvReac Type Severity Reaction Status Date / Time hydrocodone Allergy Intermediate itchy Verified 04/27/22 16:26 Review of Systems Status of ROS: Reports: 10 or more systems reviewed and unremarkable except as noted in History and below [facility] Medical History Chronic abdominal pain Cyst of left ovary Cyst of right ovary Dyspareunia in female Endometriosis Essential tremor (08/16/07) Gastroesophageal reflux disease (06/16/08) Generalized anxiety disorder History of abnormal cervical Papanicolaou smear History of COVID-19 Insomnia (01/07/14) Menorrhagia Moderate episode of recurrent major depressive disorder (02/23/07) Night sweats Restless legs syndrome (03/25/12) Surgical History History of laparoscopy History of tubal ligation Status post laparoscopic hysterectomy Family History Father High blood pressure Diabetes Chronic mental illness Mother High blood pressure Chronic mental illness Other ASCVD (arteriosclerotic cardiovascular disease) Social History Narrative: 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 She smokes daily. She drinks alcohol on occasion. She doesn't use recreational drugs. Smoking Status: Current every day smoker What tobacco products do you use: cigarettes Smoking packs per day: 0.5 Smoking cigarettes per day: 10.0 Do you use any of these nicotine containing products: None Second hand tobacco smoke exposure: No How often do you have a drink containing alcohol: monthly or less How many standard drinks containing alcohol do you have on a typical day: 3 or 4 AUDIT-C Alcohol total score: 2 Non-prescribed substance use: denies use Caffeine: No Little interest or pleasure in doing things: nearly every day Feeling down, depressed, or hopeless: not at all service: No Exam Narrative: Exam Narrative: Well-nourished well-developed patient, tearful. Alert and oriented. Does not appear ill or toxic. HEENT: Normocephalic atraumatic. Pupils are equally round reactive to light. Extraocular muscles are intact. Conjunctivae are moist without any icterus noted. Moist mucous membranes. Cardiovascular: Heart is regular rate and rhythm S1 and S2 are present without any murmurs. Lungs: Clear to auscultation bilaterally no wheezes rhonchi or rales are appreciated. Patient takes deep breaths without any discomfort. Abdomen: Soft and nondistended. There is no guarding or rebound tenderness. There are no peritoneal signs. Patient jumps from the chair when I gently put my stethoscope on the abdominal wall. Appears to have diffuse tenderness to light palpation. Extremities: Bilateral lower extremities are without edema. Skin: Well perfused without any obvious rashes. Const: Vital Signs, click to edit/add: Vital Signs - 24 hr 04/27/22 16:23 Temperature 97.0 F L Pulse Rate [Left P ulse Oximeter] 90 Respiratory Rate 60 H Blood Pressure [Ri ght Upper Arm] 121/76 Pulse Oximetry 97 Oxygen Delivery Me thod Room Air Course Course Hospital Course: Lab work was done including a UA-everything was entirely normal. Vital Signs Vital signs: Initial Vital Signs Temperature 97.0 F L 04/27/22 16:23 Temperature Source Temporal Artery Scan 04/27/22 16:23 Pulse Rate 90 04/27/22 16:23 Respiratory Rate 60 H 04/27/22 16:23 Blood Pressure 121/76 04/27/22 16:23 Blood Pressure Mean 91 04/27/22 16:23 Blood Pressure Position Sitting 04/27/22 16:23 Pulse Oximetry 97 04/27/22 16:23 Oxygen Delivery Method 04/27/22 16:23 Vital Signs Temperature 97.0 F L 04/27/22 16:23 Pulse Rate 90 04/27/22 16:23 Respiratory Rate 60 H 04/27/22 16:23 Blood Pressure 121/76 04/27/22 16:23 Pulse Oximetry 97 04/27/22 16:23 Oxygen Delivery Method 04/27/22 16:23 Temperature 97.0 F L 04/27/22 16:23 Pulse Rate 90 04/27/22 16:23 Respiratory Rate 60 H 04/27/22 16:23 Blood Pressure 121/76 04/27/22 16:23 Pulse Oximetry 97 04/27/22 16:23 Oxygen Delivery Method 04/27/22 16:23 Medical Decision Making MDM Narrative Medical decision making narrative: 42-year-old female with chronic abdominal pain, workup was unremarkable today. Discussed using heating pad to the abdominal wall, taking [id number] NSAIDs or Tylenol. Patient was agreeable had no other questions. Return if symptoms worsen. Lab Data Lab results reviewed: Yes I reviewed the patient's lab results Labs: Lab Results 04/27/22 04/27/22 04/27/22 Range/Units 16:37 16:37 16:37 WBC 7.16 (4.50-11.00) K/uL RBC 4.30 (4.00-5.20) m/uL Hgb 13.4 (12.0-16.0) gm/dL Hct 39.8 (33.0-51.0) % MCV 93 (80-100) fL MCH 31 (26-34) pg MCHC 34 (32-36) gm/dL RDW Coeff of Jose Alberto 12.9 (11.5-15.5) % Plt Count 228 (140-440) K/uL Neut % (Auto) 70.3 (42.0-72.0) % Lymph % (Auto) 20.3 (20-44) % [place] % (Auto) 7.4 (0.0-11.0) % Eos % (Auto) 1.5 (0.0-7.0) % Baso % (Auto) 0.1 (0.0-3.0) % Neut # (Auto) 5.03 (1.7-7.0) K/uL Lymph # (Auto) 1.45 (0.90-2.90) K/uL [place] # (Auto) 0.50 (0.00-0.90) K/UL Eos # (Auto) 0.11 (0.00-0.50) K/uL Baso # (Auto) 0.01 (0.00-0.30) K/uL Sodium 138 (135-149) mmol/L Potassium 4.0 (3.6-5.1) mmol/L Chloride 109 (96-114) mmol/L Carbon Dioxide 23 (20-32) mmol/L BUN 14 (5-24) mg/dL Creatinine 0.7 (0.5-1.5) mg/dL Estimated Creat Clear 100.01 Estimated GFR 112 ml/min Glucose 110 (60-115) mg/dL Lactate (0.5-1.9) mmol/L Calcium 8.4 (8.4-10.6) mg/dL Total Bilirubin 0.3 (0.1-1.5) mg/dL Direct Bilirubin 0.2 (0.0-0.5) mg/dL AST 26 (12-35) U/L ALT 36 H (4-35) U/L Alkaline Phosphatase 68 (40-150) U/L C-Reactive Protein < 0.5 L (0.5-1.0) mg/dL Total Protein 6.5 (6.0-8.3) g/dL Albumin 4.0 (3.3-5.0) g/dL Lipase 59 (23-300) U/L HCG, Qual Negative (Negative) Urine Color Yellow (Yellow) Urine Appearance Clear (Clear) Urine pH 6.5 (5.0-8.5) Ur Specific [place] 1.025 (1.000-1.030) Urine Protein Negative (Negative) Urine Glucose (UA) Negative (Negative) Urine Ketones Trace A (Negative) Urine Blood Negative (Negative) Urine Nitrite Negative (Negative) Urine Bilirubin Negative (Negative) Urine Urobilinogen 0.2 (0.2-1.0) Ur Leukocyte Esterase Negative (Negative) Urine RBC 0-2 (0-2) Urine WBC 2-5 (0-5) Ur Squamous Epith Cells Few (None-Few) Urine Bacteria Few A (None) Urine Mucus Few A (None) 04/27/22 Range/Units 16:53 WBC (4.50-11.00) K/uL RBC (4.00-5.20) m/uL Hgb (12.0-16.0) gm/dL Hct (33.0-51.0) % MCV (80-100) fL MCH (26-34) pg MCHC (32-36) gm/dL RDW Coeff of Jose Alberto (11.5-15.5) % Plt Count (140-440) K/uL Neut % (Auto) (42.0-72.0) % Lymph % (Auto) (20-44) % [place] % (Auto) (0.0-11.0) % Eos % (Auto) (0.0-7.0) % Baso % (Auto) (0.0-3.0) % Neut # (Auto) (1.7-7.0) K/uL Lymph # (Auto) (0.90-2.90) K/uL [place] # (Auto) (0.00-0.90) K/UL Eos # (Auto) (0.00-0.50) K/uL Baso # (Auto) (0.00-0.30) K/uL Sodium (135-149) mmol/L Potassium (3.6-5.1) mmol/L Chloride (96-114) mmol/L Carbon Dioxide (20-32) mmol/L BUN (5-24) mg/dL Creatinine (0.5-1.5) mg/dL Estimated Creat Clear Estimated GFR ml/min Glucose (60-115) mg/dL Lactate 1.9 (0.5-1.9) mmol/L Calcium (8.4-10.6) mg/dL Total Bilirubin (0.1-1.5) mg/dL Direct Bilirubin (0.0-0.5) mg/dL AST (12-35) U/L ALT (4-35) U/L Alkaline Phosphatase (40-150) U/L C-Reactive Protein (0.5-1.0) mg/dL Total Protein (6.0-8.3) g/dL Albumin (3.3-5.0) g/dL Lipase (23-300) U/L HCG, Qual (Negative) Urine Color (Yellow) Urine Appearance (Clear) Urine pH (5.0-8.5) Ur Specific [place] (1.000-1.030) Urine Protein (Negative) Urine Glucose (UA) (Negative) Urine Ketones (Negative) Urine Blood (Negative) Urine Nitrite (Negative) Urine Bilirubin (Negative) Urine Urobilinogen (0.2-1.0) Ur Leukocyte Esterase (Negative) Urine RBC (0-2) Urine WBC (0-5) Ur Squamous Epith Cells (None-Few) Urine Bacteria (None) Urine Mucus (None) Discharge Plan Discharge Clinical Impression: Abdominal pain Patient Disposition: Home, Self-Care Condition: Stable Additional Instructions: Your lab work today was entirely normal. Recommend using a heating pad to the abdominal wall, do not apply heat directly to skin. Okay to use ibuprofen or Tylenol as directed. Follow-up with your primary care provider if you are not improving. Return to the ER if you are getting worse. Prescriptions: No Action albuterol sulfate 90 mcg/actuation HFA aerosol inhaler 2 puff inhalation Q4-6H PRN fluticasone furoate-vilanterol 200-25 mcg/dose blister with device See Rx Instructions inhalation DAILY Rx Instructions: 1 puff inhalation daily; Tylenol ibuprofen amitriptyline 50 mg tablet 50 mg PO DAILY omeprazole 20 mg capsule,delayed release(DR/EC) 20 mg PO QDAY Qty: 90 1RF trazodone 100 mg tablet 250 mg PO QHS Qty: 225 1RF sertraline 100 mg tablet 100 mg PO DAILY Qty: 90 1RF bupropion HCl 300 mg tablet extended release 24 hr 300 mg PO DAILY Qty: 90 0RF diclofenac sodium 75 mg tablet,delayed release (DR/EC) 75 mg PO BID Qty: 180 0RF Follow Up/Referrals: Danny Hernández MD [Primary Care Provider] - Stand Alone Forms: [employer] Info Instructions
[2022-04-27 17:04] LABS: Lactate* 1.9 mmol/L (0.5-1.9)
[2022-04-27 17:06] LABS: Basophils Absolute Auto 0.01 K/uL (0.00-0.30); Basophils Percent Auto 0.1 % (0.0-3.0); Eosinophils Absolute Auto 0.11 K/uL (0.00-0.50); Eosinophils Percent Auto 1.5 % (0.0-7.0); Hematocrit 39.8 % (33.0-51.0); Hemoglobin* 13.4 gm/dL (12.0-16.0); Immature Granulocytes Abs Auto 0.03 K/uL (0.00-0.30); Immature Granulocytes Pct Auto 0.4 %; Lymphocytes Absolute Auto 1.45 K/uL (0.90-2.90); Lymphocytes Percent Auto 20.3 % (20-44); Mean Corpuscular HGB Conc 34 gm/dL (32-36); Mean Corpuscular Hemoglobin 31 pg (26-34); Mean Corpuscular Volume 93 fL (80-100); Monocytes Percent Auto 7.4 % (0.0-11.0); Neutrophils Absolute Auto 5.03 K/uL (1.7-7.0); Neutrophils Percent Auto 70.3 % (42.0-72.0); Platelet Count* 228 K/uL (140-440); RDW Coefficient of Variation % 12.9 % (11.5-15.5); White Blood Count* 7.16 K/uL (4.50-11.00)
[2022-04-27 17:18] LABS: Slide Review Reflex No
[2022-04-27 17:19] LABS: Appearance Urine Clear (Clear); Bilirubin Urine Negative (Negative); Blood Urine Negative (Negative); Color Urine Yellow (Yellow); Glucose Urine Negative (Negative); Ketones Urine Trace (Negative); Leukocyte Esterase Urine Negative (Negative); Nitrite Urine Negative (Negative); Protein Urine Negative (Negative); Specific Gravity Urine 1.025 (1.000-1.030); Urobilinogen Urine 0.2 (0.2-1.0); pH Urine 6.5 (5.0-8.5)
[2022-04-27 17:20] LABS: HCG Qualitative* Negative (Negative)
[2022-04-27 17:22] LABS: Chloride* 109 mmol/L (96-114); Sodium* 138 mmol/L (135-149)
[2022-04-27 17:24] LABS: Creatinine* 0.7 mg/dL (0.5-1.5); Est. Creatinine Clearance* 100.01; Estimated Glomerular Filt Rate 112 ml/min
[2022-04-27 17:25] LABS: Alkaline Phosphatase* 68 U/L (40-150); Aspartate Amino Transferase* 26 U/L (12-35); Bilirubin Direct* 0.2 mg/dL (0.0-0.5); Bilirubin Total* 0.3 mg/dL (0.1-1.5); Blood Urea Nitrogen* 14 mg/dL (5-24); Carbon Dioxide* 23 mmol/L (20-32); Glucose* 110 mg/dL (60-115); Lipase* 59 U/L (23-300); Total Protein* 6.5 g/dL (6.0-8.3)
[2022-04-27 17:26] LABS: Alanine Aminotransferase* 36 U/L (4-35); Calcium* 8.4 mg/dL (8.4-10.6)
[2022-04-27 17:28] LABS: C Reactive Protein* < 0.5 mg/dL (0.5-1.0)
[2022-04-27 17:31] LABS: RBC Urine 0-2 (0-2)
[2022-04-27 17:32] LABS: Bacteria Urine Few; Mucus Urine Few; Squamous Epithelial Cell Urine Few (None-Few)
[2022-04-27 17:56] LABS: Erythrocyte SedimentationRate* 6 mm/hr (2-20)
== END 2022-04-27 18:07 | disposition home or self-care (01) ==
PROVIDERS: Emergency Provider Family Medicine; PCP Family Medicine
DX: R10.9 Unspecified abdominal pain (principal)
CPT/HCPCS: 36415; 80048; 80076; 81001; 83605; 83690; 84703; 85025; 85651; 86140; 87086; 99284

== ENCOUNTER 2022-05-16 09:00 | Day surgery (SDC) | payer BC, SELFPAY ==
[2022-05-16] VITALS (15 sets, daily range): BP systolic 94–127; BP diastolic 61–82; PULSE 58–72; RESP 14–18; TEMP 36.2–36.9; O2SAT 93–99; BMI 29.3
--- NOTE | 2022-05-16 09:10 | SUR.PREOP ---
home covid test negative.
[2022-05-16] MEDS: LACTATED RINGERS 1000 ML 1,000 ML 100 ML IV (09:20)
[2022-05-16] MEDS: SODIUM CHLORIDE 0.9 % (FLUSH) 10 ML SYRINGE IVF (09:20)
[2022-05-16 09:36] LABS: Hemoglobin* 13.9 gm/dL (12.0-16.0)
[2022-05-16] MEDS: BUPIVACAINE 0.25% 30 ML 5 ML INJECTION (10:14)
--- NOTE | 2022-05-16 10:49 | W.PM.GYNPROC ---
Procedure Note Date Seen: 05/16/22 Procedure Details: PREOPERATIVE DIAGNOSIS: Chronic pelvic pain History of endometriosis Status post total laparoscopic hysterectomy with bilateral salpingectomy and left oophorectomy POSTOPERATIVE DIAGNOSIS: Chronic pelvic pain History of endometriosis Status post total laparoscopic hysterectomy with bilateral salpingectomy and left oophorectomy PROCEDURE: Laparoscopic right oophorectomy SURGEON: Arabella Finch MD ANESTHESIA: General IV FLUIDS: 800 mL crystalloid EBL: Less than 5 mL FINDINGS: 1. Upon pelvic exam under anesthesia, the cervix and vagina were normal in appearance. There were no palpable adnexal masses. 2. Upon laparoscopy, survey of the upper abdomen revealed a normal appearance to the inferior edge of the liver, gallbladder and stomach. Bowels were grossly normal appearance, as was the appendix. Survey of the pelvis revealed surgical absence of the uterus, both tubes and left ovary. Other than a slightly whitened appearance to the vaginal cuff and the remnants of the uterosacral ligaments, all tissues appeared normal in the pelvis and there were none no obvious endometriotic implants. The right ovary was normal in appearance. The cul-de-sac and bladder reflection were normal in appearance. COMPLICATIONS: None PROCEDURE IN DETAIL: Patient was taken to the operating room with IV running. She was positioned in dorsal lithotomy position with her legs fully supported in Yellofin stirrups. General anesthesia was administered. She was prepped and draped in the usual sterile fashion. Bimanual exam was performed for the above-noted findings. Sponge stick was placed in the patient's vagina for laparoscopic identification. Medel catheter was placed. Patient's legs were placed in neutral position. Attention was turned to patient's abdomen. The infraumbilical area was infiltrated with small amount of Marcaine. An infraumbilical incision was made with a scalpel and carried through to the underlying layer of fascia with a hemostat. The 5 mm Fios Kii trocar was assembled with laparoscope within, and insufflator attached. While tenting up the abdomen manually, the trocar was passed through the anterior abdominal wall into the peritoneal cavity. Trocar was removed. Pneumoperitoneum was achieved. Survey of abdomen and pelvis revealed the above-noted findings. Two additional port sites were created. The first was in the patient's left lower quadrant, just superior medial to the left ASIS. The second was a hand's breath superior to and slightly medial to the first. Each was infiltrated with small amount of Marcaine prior to incision. An 11 mm incision was made at the first site, making sure the large vessels were out of harm's way. A 5 mm incision was made at the second site. An 11 mm and 5 mm Fios Kii port was inserted at these site, respectively, under direct visualization and without complication. The balloon on each of the three ports was inflated, holding each in place. The right ovary was held away from the pelvic sidewall. The Thunderbeat device was used to cauterize and transect the right ovarian artery, followed by the remnants of the broad ligament that attached the ovary to the sidewall the pelvis. The specimen was freed and placed in the patient's pelvis. An Endo-Catch bag was inserted through the left lower quadrant port and the specimen was placed within. The bag was cinched up and pulled through the anterior abdominal wall. The port at this site was removed. With gentle traction, the bag itself was removed and the ovary was sent to pathology for further analysis. The fascia at the left lower quadrant port site was closed with 2 stitches of 0 Vicryl. The 1st was placed with a Gael-Zoran device, and the 2nd was placed with needle wedding transportation driver. The instruments were removed from the remaining 2 ports, and the balloon tips of these ports was deflated. Pneumoperitoneum was released and the ports were removed. The skin of each port site was closed with a subcuticular stitch of 4 0 Vicryl. Surgical glue was applied above this. The sponge stick was removed from the patient's vagina, and the catheter was removed from the patient's bladder. Patient tolerated procedure well and was taken to recovery area in stable condition.
--- NOTE | 2022-05-16 10:58 | W.ANESCHARGE ---
Anesthesia Charges Start Date/Time Anesthesia Start Date: 05/16/22 Anesthesia Start Time: 09:42 Stop Date/Time Anesthesia Stop Date: 05/16/22 Anesthesia Stop Time: 10:54
[2022-05-16] MEDS: fentaNYL 100 MCG/2 ML inj 50 MCG IVP ×2 (11:10→11:20)
--- NOTE | 2022-05-16 11:22 | W.ANESCHARGE ---
Anesthesia Charges Start Date/Time Anesthesia Start Date: 05/16/22 Anesthesia Start Time: 09:42 Stop Date/Time Anesthesia Stop Date: 05/16/22 Anesthesia Stop Time: 10:54
[2022-05-16] MEDS: OXYCODONE 5 MG TABLET PO (12:26)
== END 2022-05-16 12:50 | disposition home or self-care (01) ==
PROVIDERS: PCP Family Medicine; Visit Provider Obstetrics & Gynecology
PROC: (CPT 58661; principal; 2022-05-16 10:15)
DX: R10.2 Pelvic and perineal pain (principal); G89.29 Other chronic pain; Z90.711 Acquired absence of uterus with remaining cervical stump; Z90.721 Acquired absence of ovaries, unilateral; Z90.79 Acquired absence of other genital organ(s)
CPT/HCPCS: 58661; 36415; 840; 85018; 86850; 86900; 86901; 88305; A9270; J0330; J1100; J1885; J2250; J2370; J2405; J2704; J3010; J3490; J7120

== ENCOUNTER 2022-05-24 01:17 | Emergency (ER) | payer BC, SELFPAY ==
[2022-05-24 01:24] VITALS: BP 131/82; PULSE 95; RESP 18; TEMP 36.4; O2SAT 97
--- NOTE | 2022-05-24 01:40 | CRLHL7_ITS ---
For Patients: As a result of the Century Cures Act, medical imaging exams and procedure reports are released immediately into your electronic medical record. You may view this report before your referring provider. If you have questions, please contact your health care provider. INDICATION: Left lower quadrant pain. Status post oophorectomy 7 days ago TECHNIQUE: CT abdomen and pelvis acquired with 82 cc Isovue 370 IV contrast. COMPARISON: 03/21/2022 FINDINGS: Lower chest: Unremarkable. Liver: Unremarkable. Spleen: Unremarkable. Pancreas: Unremarkable. Gallbladder and bile ducts: Unremarkable. Adrenal glands: Unremarkable. Kidneys: Unremarkable. GI tract: Unremarkable. Appendix is normal. Vascular structures: Unremarkable. Lymph nodes: Unremarkable. Miscellaneous: Small fat containing umbilical hernia. No free air or significant free fluid. Pelvic Organs: Status post hysterectomy. No fat stranding or abscess identified in the pelvis. Bones: Unremarkable for age. IMPRESSION: No etiology seen to explain left lower quadrant pain. No acute intra-abdominal inflammatory process identified. Status post hysterectomy. Please note that all CT scans at this facility use dose modulation, iterative reconstruction, and/or weight-based dosing when appropriate to reduce radiation dose to as low as reasonably achievable. Dictated by Lluvia Izaguirre MD @ 05/24/2022 3:26:03 AM (Electronically Signed)
--- NOTE | 2022-05-24 01:42 | ED_ITS ---
HPI - General Adult General Chief complaint: Abdominal Pain Stated complaint: Pain after surgery Time Seen by Provider: 05/24/22 01:20 Source: patient Mode of arrival: ambulatory Limitations: no limitations History of Present Illness HPI narrative: 6-year-old female with a history of drug use presents to the emergency department with postoperative abdominal pain. She underwent and partial oophorectomy last week, having had a hysterectomy and unilateral oophorectomy a year ago for chronic pelvic pain. She reports that the pain started about 1:00 p.m. this afternoon, she reports that she took Tylenol and ibuprofen at about 11:00 a.m., repeated at 9:00 p.m.. Pain continues to be bothersome. She states that she had similar severe pain on Friday, updated her surgeon's nurse on Friday. They told her she could double up on her oxycodone if she needed. I get the impression she is out of her oxycodone, states she has not taken any in the last couple of days. Is sporadically using or Tylenol and ibuprofen. Reports her last bowel movement was around midnight tonight, was feeling a little constipated. Does not believe that is the source of her pain. Appetite remains good. Normal intake. No fevers. No trauma or injury. No redness or drainage from laparoscopic sites. She reports that she also vomited around midnight, I do not see any evidence of this on her clothing, mouth or face. She denies blood. Did not complain of nausea to the triage nurse. She reports that she is allergic to hydrocodone, causing itchiness. She is on multiple psychiatric meds which would limit the use of some of my medications. Past medical history notable for depression and anxiety, multiple serotonin agents noted. Also history of chronic abdominal pain, recent oophorectomy as stated above. Chest was a history of asthma but reports good control. Her medications are reviewed and appropriate as listed in EMR she confirms. Allergies are to only hydrocodone. Socially, she clearly admits to a prior h istory of drug use, denies intoxication. ROS is notable for the gynecological and abdominal symptoms as above. Otherwise denies times 12 systems. Related Data Home Medications Medication Instructions Recorded Confirmed albuterol sulfate 90 mcg/actuation 2 puff inhalation Q4-6H PRN 10/12/21 05/16/22 aerosol inhaler fluticasone furoate 200 See Rx Instructions inhalation 10/12/21 05/16/22 mcg-vilanterol 25 mcg/dose DAILY inhalation powder Previous Rx's Medication Instructions Recorded omeprazole 20 mg capsule,delayed 20 mg PO QDAY #90 caps 04/04/22 release sertraline 100 mg tablet 100 mg PO DAILY #90 tabs 04/04/22 bupropion HCl 300 mg 24 hr tablet, 300 mg PO DAILY #90 tabs 04/05/22 extended release diclofenac sodium 75 mg 75 mg PO BID #180 tabs 04/05/22 tablet,delayed release trazodone 300 mg tablet 300 mg PO QHS #90 tabs 04/29/22 acetaminophen 500 mg tablet 1,000 mg PO Q6H PRN Pain #0 tabs 05/16/22 estradiol 0.1 mg/24 hr semiweekly 1 patch transdermal 2XW #8 ea 05/16/22 transdermal patch ibuprofen 600 mg PO Q6H PRN pain 14 days #60 05/16/22 tabs oxycodone 5 mg tablet 5 mg PO Q4H PRN 4 OR GREATER ON 05/16/22 PAIN SCALE 14 days #20 tabs oxycodone 5 mg tablet 5 mg PO Q4H PRN pain #20 tabs 05/16/22 Allergies Allergy/AdvReac Type Severity Reaction Status Date / Time hydrocodone Allergy Intermediate itchy Verified 05/16/22 09:08 PFSH PFS Medical History Chronic abdominal pain Cyst of left ovary Cyst of right ovary Dyspareunia in female Endometriosis Essential tremor (08/16/07) Gastroesophageal reflux disease (06/16/08) Generalized anxiety disorder History of abnormal cervical Papanicolaou smear History of COVID-19 Insomnia (01/07/14) Menorrhagia Moderate episode of recurrent major depressive disorder (02/23/07) Night sweats Restless legs syndrome (03/25/12) Surgical History History of laparoscopy History of tubal ligation Status post laparoscopic hysterectomy Family History Father High blood pressure Diabetes Chronic mental illness Mother High blood pressure Chronic mental illness Other ASCVD (arteriosclerotic cardiovascular disease) Social History Narrative: 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 She smokes daily. She drinks alcohol on occasion. She doesn't use recreational drugs. Smoking Status: Current every day smoker What tobacco products do you use: cigarettes Smoking packs per day: 0.5 Smoking cigarettes per day: 10.0 Years smoked: 28 Smoking pack-years: 14.00 Do you use any of these nicotine containing products: None Second hand tobacco smoke exposure: No How often do you have a drink containing alcohol: monthly or less Alcohol type: hard liquor How many standard drinks containing alcohol do you have on a typical day: 3 or 4 AUDIT-C Alcohol total score: 2 Non-prescribed substance use: denies use Caffeine: No Little interest or pleasure in doing things: nearly every day Feeling down, depressed, or hopeless: not at all Are you using contraception or practicing any form of control: No service: No Exam 2 Const: Vital Signs, click to edit/add: Vital Signs - 24 hr 05/24/22 01:24 05/24/22 02:39 Temperature 97.5 F L Pulse Rate [Left P ulse Oximeter] 95 75 Respiratory Rate 18 16 Blood Pressure [Ri ght Upper Arm] 131/82 111/77 Pulse Oximetry 97 95 Oxygen Delivery Me thod Room Air Room Air Documenting provider has reviewed patient's vital signs: yes Common normals: no apparent distress Other: Seems mildly anxious, does not appear acutely ill. Well nourished, well hydrated with moist mucous membranes, acyanotic lips normal skin turgor in appearance. HENMT: Common normals: normocephalic and head/scalp atraumatic Head and scalp: normocephalic and atraumatic Mouth: oral and palatal mucosa normal Throat: posterior oropharynx normal Eye: Common normals: conjunctivae normal General eye: normal appearance of both eyes Conjunctiva: conjunctiva(e) normal Neck & C-Spine: Common normals: full ROM and no lymphadenopathy Resp: Common normals: normal respiratory effort, no use of accessory muscles and clear to auscultation bilaterally Effort & inspection: able to speak in complete sentences Auscultation: clear to auscultation bilaterally Cardio: Common normals: regular rate, regular rhythm, S1 normal heart sound, S2 normal heart sound, no murmurs and peripheral pulses 2+ throughout Rate: regular rate Rhythm: regular rhythm Heart sounds: S1 normal and S2 normal Peripheral pulses: pulses 2+ throughout GI: Other: Laparoscopic sites appear to be healing very well. There is no drainage, no surrounding redness. The bowel sounds are normoactive in all 4 quadrants. There is some mild palpable fullness along the left lower quadrant, colon area only. Belly is very soft with no mass. She has tenderness in all quadrants but it does locate more to the left lower quadrant. There was certainly no guarding or rebound tenderness. As stated, abdomen is quite soft. Extremity: Common normals: normal to inspection, normal capillary refill and no pedal edema Neuro: Speech: speech normal Motor exam: no tremor noted and no movement abnormalities noted Psych: Other: Anxious with moderate insight. Thought process is logical. Pain seems out of proportion to exam. Skin: Common normals: no rashes or lesions noted General skin exam: no rashes or lesions noted Course Vital Signs Vital signs: Initial Vital Signs Temperature 97.5 F L 05/24/22 01:24 Temperature Source Temporal Artery Scan 05/24/22 01:24 Pulse Rate 95 05/24/22 01:24 Pulse Rhythm 05/24/22 01:24 Respiratory Rate 18 05/24/22 01:24 Blood Pressure 131/82 05/24/22 01:24 Blood Pressure Mean 98 05/24/22 01:24 Pulse Oximetry 97 05/24/22 01:24 Oxygen Delivery Method 05/24/22 01:24 Vital Signs Temperature 97.5 F L 05/24/22 01:24 Pulse Rate 95 05/24/22 01:24 Respiratory Rate 18 05/24/22 01:24 Blood Pressure 131/82 05/24/22 01:24 Pulse Oximetry 97 05/24/22 01:24 Oxygen Delivery Method 05/24/22 01:24 Temperature 97.5 F L 05/24/22 01:24 Pulse Rate 75 05/24/22 02:39 Respiratory Rate 16 05/24/22 02:39 Blood Pressure 111/77 05/24/22 02:39 Pulse Oximetry 95 05/24/22 02:39 Oxygen Delivery Method 05/24/22 02:39 Medical Decision Making MDM Narrative Medical decision making narrative: Suspect constipation, cannot exclude diverticulitis, surgical complication, infection, colitis, urinary infection, other etiologies. Patient is quite concerned that there is a major complication. I discuss that her exam is quite benign and would recommend conservative management, she requests further workup. CT scan will be performed, basic blood work to look for CBC, metabolic panel, CRP and procalcitonin. Counseled patient I will not be giving IV narcotics. She understands my rationale and reasoning. Await findings prior to any interventions for pain. She has had appropriate Tylenol and ibuprofen per her report but would be due for Toradol at 3:00 a.m.. Operative notes and prior gynecology notes reviewed. Update: As expected, labs and CT are normal. Was given Vistaril and Toradol for pain. Does not report improvement. I reviewed my reasons for not giving more narcotics. She verbalizes understanding and agreement and was not upset by this decision. All questions answered. She will follow up with primary care and/or gynecology to discuss ongoing chronic pain. No narcotics will be given from the ED. she may continue Tylenol and/or ibuprofen. Dosing reviewed. Lab Data Lab results reviewed: Yes I reviewed the patient's lab results Lab results narrative: All normal, reassuring Labs: Lab Results 05/24/22 05/24/22 Range/Units 01:55 01:55 WBC 7.19 (4.50-11.00) K/uL RBC 4.39 (4.00-5.20) m/uL Hgb 13.4 (12.0-16.0) gm/dL Hct 39.5 (33.0-51.0) % MCV 90 (80-100) fL MCH 31 (26-34) pg MCHC 34 (32-36) gm/dL RDW Coeff of Jose Alberto 12.2 (11.5-15.5) % Plt Count 230 (140-440) K/uL Neut % (Auto) 63.6 (42.0-72.0) % Lymph % (Auto) 27.1 (20-44) % [place] % (Auto) 7.1 (0.0-11.0) % Eos % (Auto) 1.8 (0.0-7.0) % Baso % (Auto) 0.1 (0.0-3.0) % Neut # (Auto) 4.57 (1.7-7.0) K/uL Lymph # (Auto) 1.95 (0.90-2.90) K/uL [place] # (Auto) 0.50 (0.00-0.90) K/UL Eos # (Auto) 0.13 (0.00-0.50) K/uL Baso # (Auto) 0.01 (0.00-0.30) K/uL Sodium 139 (135-149) mmol/L Potassium 3.8 (3.6-5.1) mmol/L Chloride 108 (96-114) mmol/L Carbon Dioxide 26 (20-32) mmol/L BUN 10 (5-24) mg/dL Creatinine 0.7 (0.5-1.5) mg/dL Estimated GFR 112 ml/min Glucose 96 (60-115) mg/dL Calcium 8.9 (8.4-10.6) mg/dL Total Bilirubin 0.4 (0.1-1.5) mg/dL AST 25 (12-35) U/L ALT 38 H (4-35) U/L Alkaline Phosphatase 55 (40-150) U/L C-Reactive Protein < 0.5 L (0.5-1.0) mg/dL Total Protein 7.1 (6.0-8.3) g/dL Albumin 4.2 (3.3-5.0) g/dL Procalcitonin 0.03 (<0.50) ng/mL Imaging Data CT scan - pelvis: My impression: Normal, postsurgical changes noted Radiologist's impression: IMPRESSION: No etiology seen to explain left lower quadrant pain. No acute intra-abdominal inflammatory process identified. Status post hysterectomy. Discharge Plan Discharge Clinical Impression: Chronic abdominal pain Patient Disposition: Home, Self-Care Condition: Stable Instructions: Chronic Abdominal Pain (ED) Additional Instructions: As we discussed, labs and CT are perfectly normal. This is great news. I suspect your pain is from a chronic process. Management of this is best dealt with the physician who knows you well and can make long-term suggestions. I recommend that you follow-up with your primary care provider and/or ruching machine operator to discuss further treatment options if your symptoms persist. In the meantime, remember that you can use Tylenol and ibuprofen to help treat your pain. As we discussed, I recommend stagger dosing for these. You may take Tylenol as soon as you get home 1000 mg every 6 hours. You may take ibuprofen or Aleve in 6 hours, around 9:00 a.m.. You may continue with the ibuprofen 600 mg every 6 hours as needed. Update your ruching machine operator by phone if you are still very bothered by your symptoms tomorrow. You may resume all typical activities. Activity Level: No Restrictions Discharge Diet: Regular Prescriptions: No Action trazodone 300 mg tablet 300 mg PO QHS Qty: 90 1RF albuterol sulfate 90 mcg/actuation HFA aerosol inhaler 2 puff inhalation Q4-6H PRN fluticasone furoate-vilanterol 200-25 mcg/dose blister with device See Rx Instructions inhalation DAILY Rx Instructions: 1 puff inhalation daily; acetaminophen 500 mg Tablet 1,000 mg PO Q6H PRN (Reason: Pain) Qty: 0 0RF oxycodone 5 mg Tablet 5 mg PO Q4H PRN (Reason: 4 OR GREATER ON PAIN SCALE) 14 Days Qty: 20 0RF oxycodone 5 mg tablet 5 mg PO Q4H PRN (Reason: pain) Qty: 20 0RF ibuprofen 600 mg PO Q6H PRN (Reason: pain) 14 Days Qty: 60 0RF estradiol 0.1 mg/24 hr patch semiweekly 1 patch transdermal 2XW MDD surgical menopause Qty: 8 2RF Rx Instructions: apply 1 patch for 3 days alternating with 1 patch for 4 days each week for 3 wks per 4-wk cycle omeprazole 20 mg capsule,delayed release(DR/EC) 20 mg PO QDAY Qty: 90 1RF sertraline 100 mg tablet 100 mg PO DAILY Qty: 90 1RF bupropion HCl 300 mg tablet extended release 24 hr 300 mg PO DAILY Qty: 90 0RF diclofenac sodium 75 mg tablet,delayed release (DR/EC) 75 mg PO BID Qty: 180 0RF Hold Instructions: You make take this or ibuprofen, not both. Follow Up/Referrals: Danny Hernández MD [Primary Care Provider] - Stand Alone [facility] [employer] Info Instructions
[2022-05-24 02:03] LABS: Basophils Absolute Auto 0.01 K/uL (0.00-0.30); Basophils Percent Auto 0.1 % (0.0-3.0); Eosinophils Absolute Auto 0.13 K/uL (0.00-0.50); Eosinophils Percent Auto 1.8 % (0.0-7.0); Hematocrit 39.5 % (33.0-51.0); Hemoglobin* 13.4 gm/dL (12.0-16.0); Immature Granulocytes Abs Auto 0.02 K/uL (0.00-0.30); Immature Granulocytes Pct Auto 0.3 %; Lymphocytes Absolute Auto 1.95 K/uL (0.90-2.90); Lymphocytes Percent Auto 27.1 % (20-44); Mean Corpuscular HGB Conc 34 gm/dL (32-36); Mean Corpuscular Hemoglobin 31 pg (26-34); Mean Corpuscular Volume 90 fL (80-100); Monocytes Percent Auto 7.1 % (0.0-11.0); Neutrophils Absolute Auto 4.57 K/uL (1.7-7.0); Neutrophils Percent Auto 63.6 % (42.0-72.0); Platelet Count* 230 K/uL (140-440); RDW Coefficient of Variation % 12.2 % (11.5-15.5); Red Blood Count 4.39 m/uL (4.00-5.20); White Blood Count* 7.19 K/uL (4.50-11.00)
[2022-05-24 02:05] LABS: Slide Review Reflex No
[2022-05-24 02:17] LABS: Albumin* 4.2 g/dL (3.3-5.0); Chloride* 108 mmol/L (96-114)
[2022-05-24 02:18] LABS: Potassium* 3.8 mmol/L (3.6-5.1); Sodium* 139 mmol/L (135-149)
[2022-05-24 02:20] LABS: Alanine Aminotransferase* 38 U/L (4-35); Alkaline Phosphatase* 55 U/L (40-150); Aspartate Amino Transferase* 25 U/L (12-35); Bilirubin Total* 0.4 mg/dL (0.1-1.5); Blood Urea Nitrogen* 10 mg/dL (5-24); Carbon Dioxide* 26 mmol/L (20-32); Creatinine* 0.7 mg/dL (0.5-1.5); Estimated Glomerular Filt Rate 112 ml/min; Total Protein* 7.1 g/dL (6.0-8.3)
[2022-05-24 02:21] LABS: Calcium* 8.9 mg/dL (8.4-10.6); Glucose* 96 mg/dL (60-115)
[2022-05-24 02:24] LABS: C Reactive Protein* < 0.5 mg/dL (0.5-1.0)
[2022-05-24 02:38] LABS: Procalcitonin* 0.03 ng/mL (<0.50)
[2022-05-24 02:39] VITALS: BP 111/77; PULSE 75; RESP 16; O2SAT 95
[2022-05-24] MEDS: KETOROLAC 10 MG TABLET PO (03:04)
[2022-05-24] MEDS: hydrOXYzine pamoate 25 MG CAPSULE PO (03:04)
== END 2022-05-24 03:41 | disposition home or self-care (01) ==
PROVIDERS: Emergency Provider Family Medicine; PCP Family Medicine
DX: R10.84 Generalized abdominal pain (principal); Z98.890 Other specified postprocedural states
CPT/HCPCS: 36415; 74177; 80053; 81003; 84145; 85025; 86140; 99283; 99284; A9270; Q9967

== ENCOUNTER 2022-07-29 13:00 | Outpatient (RCR) | payer BC, SELFPAY | END 2022-10-31 23:59 | disposition home or self-care (01) | PROVIDERS: PCP Family Medicine; Visit Provider Obstetrics & Gynecology | DX: R10.9 Unspecified abdominal pain; Z51.89 Encounter for other specified aftercare; N39.41 Urge incontinence | CPT/HCPCS: 87086; 97110; 97112; 97162; 97535 ==

== ENCOUNTER 2022-09-13 16:46 | Emergency (ER) | payer BC, SELFPAY ==
[2022-09-13 17:00] VITALS: BP 114/81; PULSE 63; RESP 16; O2SAT 99; BMI 27.9
[2022-09-13] MEDS: 0.9 % SODIUM CHLORIDE 1000 ml 1,000 ML IV (18:03)
[2022-09-13] MEDS: diazePAM 5 MG/ML inj IV (18:05)
[2022-09-13] MEDS: KETOROLAC 15 MG/ML inj IVP (18:06)
--- NOTE | 2022-09-13 18:08 | ED_ITS ---
HPI - General Adult General Chief complaint: Syncope/Fainted Stated complaint: Dizzy spells, Black outs Time Seen by Provider: 09/13/22 17:22 History of Present Illness HPI narrative: 42-year-old woman presenting to the emergency department again after being seen 2 days ago and suspected to have gastroenteritis. Sent with Zofrsalo and Torbroderick. A has a long history of recurrent and chronic abdominal pain. Three days ago when walking out of the clinic after a blood draw, crossing the street began to feel dizzy then lightheaded and had a blackout episode. There was has never been any fall associated with what she is describing is blacking out for maybe a couple of minutes at a time. She does have some headache now. Is not describing chest pain or palpitations. Dizziness has persisted. Worse with movement. But even present now with her eyes closed at rest. After this dizz iness she started to vomit and subsequently has had increasing abdominal pain. This abdominal pain is more in the upper abdomen contrary to what typically where she has pain in the low abdomen/pelvis. She has not had a fever. Denies dysuria relevant as on physical exam she does have some flank tenderness. Blacked out today while on the toilet. Twice yesterday after getting up to go to the kitchen and the other time getting up and going to elsewhere in her home. Had an episode aunts lowered herself to the floor. Just had over the last 2 days 4 episodes of vomiting each day. Worried also about blood coming from her ears. Again no head trauma. She does endorse though using Q-tips. I examine the ears N/C blood in the anterior aspect of the outer canal. Fairly symmetrical. Has continued to smoke. History of migraines and anxiety. Related Data Home Medications Medication Instructions Recorded Confirmed albuterol sulfate 90 mcg/actuation 2 puff inhalation Q4-6H PRN 10/12/21 09/06/22 aerosol inhaler Previous Rx's Medication Instructions Recorded omeprazole 20 mg capsule,delayed 20 mg PO QDAY #90 caps 04/04/22 release sertraline 100 mg tablet 100 mg PO DAILY #90 tabs 04/04/22 trazodone 300 mg tablet 300 mg PO QHS #90 tabs 04/29/22 acetaminophen 500 mg tablet 1,000 mg (2 x 500 mg) PO Q6H PRN 05/16/22 Pain #0 tabs ibuprofen 600 mg PO Q6H PRN pain 14 days #60 05/16/22 tabs estradiol 0.01% (0.1 mg/gram) 0.5 g vaginal 2XW #42.5 grams 06/10/22 vaginal cream (Estrace) estradiol 0.1 mg/24 hr semiweekly 1 patch transdermal 2XW #8 ea 07/22/22 transdermal patch oxkjkzduyp-xjwrpukldlnec-kvkvbdcw 1 cap PO TID PRN pain #20 caps 07/28/22 50 mg-300 mg-40 mg capsule tramadol 50 mg tablet 50 mg PO BID PRN pain #20 tabs 08/02/22 fluticasone furoate 200 1 inh inhalation DAILY #60 ea 08/06/22 mcg-vilanterol 25 mcg/dose inhalation powder cephalexin 500 mg capsule 500 mg PO TID #21 caps 09/06/22 cephalexin 750 mg capsule 750 mg PO BID #14 caps 09/06/22 ibuprofen 800 mg tablet 800 mg PO Q8H PRN pain #20 tabs 09/06/22 ketorolac 10 mg tablet 10 mg PO Q8H 5 days #15 tabs 09/11/22 ondansetron HCl 4 mg tablet 4 mg PO Q6H #10 tabs 09/11/22 diazepam 5 mg tablet (Valium) 5 mg PO BID PRN dizziness or 09/13/22 vertigo #6 tabs metoclopramide HCl 10 mg tablet 10 mg PO TID PRN nausea and 09/13/22 (Reglan) vomiting #12 tabs Allergies Allergy/AdvReac Type Severity Reaction Status Date / Time hydrocodone Allergy Intermediate itchy Verified 09/13/22 19:00 Review of Systems Status of ROS: Reports: 6 or more systems reviewed and unremarkable except as noted in History and below [facility] Medical History Pain, joint, hip ?M25.559 - Pain in unspecified hip (ICD-10) Folliculitis ?L73.9 - Follicular disorder, unspecified (ICD-10) Mild persistent asthma ?J45.30 - Mild persistent asthma, uncomplicated (ICD-10) Migraine ?G43.909 - Migraine, unspecified, not intractable, without status migrainosus (ICD-10) Endometriosis ?N80.9 - Endometriosis, unspecified (ICD-10) Night sweats ?R61 - Generalized hyperhidrosis (ICD-10) History of COVID-19 ?Z86.16 - Personal history of COVID-19 (ICD-10) Restless legs syndrome (03/25/12) ?G25.81 - Restless legs syndrome (ICD-10) Moderate episode of recurrent major depressive disorder (02/23/07) ?F33.1 - Major depressive disorder, recurrent, moderate (ICD-10) Menorrhagia ?N92.0 - Excessive and frequent menstruation with regular cycle (ICD-10) Insomnia (01/07/14) ?G47.00 - Insomnia, unspecified (ICD-10) History of abnormal cervical Papanicolaou smear ?Z87.42 - Personal history of other diseases of the female genital tract (ICD-10) Generalized anxiety disorder ?F41.1 - Generalized anxiety disorder (ICD-10) Gastroesophageal reflux disease (06/16/08) ?K21.9 - Gastro-esophageal reflux disease without esophagitis (ICD-10) Essential tremor (08/16/07) ?G25.0 - Essential tremor (ICD-10) Dyspareunia in female ?N94.10 - Unspecified dyspareunia (ICD-10) Cyst of right ovary ?N83.201 - Unspecified ovarian cyst, right side (ICD-10) Cyst of left ovary ?N83.202 - Unspecified ovarian cyst, left side (ICD-10) Chronic abdominal pain ?R10.9 - Unspecified abdominal pain (ICD-10) ?G89.29 - Other chronic pain (ICD-10) Surgical History Status post laparoscopic hysterectomy ?Z90.710 - Acquired absence of both cervix and uterus (ICD-10) History of tubal ligation ?Z98.51 - Tubal ligation status (ICD-10) History of laparoscopy ?Z98.890 - Other specified postprocedural states (ICD-10) Family History Father High blood pressure Diabetes Chronic mental illness Mother High blood pressure Chronic mental illness Other ASCVD (arteriosclerotic cardiovascular disease) Social History Narrative: 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 She smokes daily. She drinks alcohol on occasion. She doesn't use recreational drugs. Smoking Status: Current every day smoker What tobacco products do you use: cigarettes Smoking packs per day: 0.5 Smoking cigarettes per day: 10.0 Years smoked: 28 Smoking pack-years: 14.00 Do you use any of these nicotine containing products: None Second hand tobacco smoke exposure: No How often do you have a drink containing alcohol: monthly or less Alcohol type: hard liquor How many standard drinks containing alcohol do you have on a typical day: 3 or 4 How often do you have six or more drinks on one occasion: Never AUDIT-C Alcohol total score: 2 Non-prescribed substance use: denies use Caffeine: No Little interest or pleasure in doing things: nearly every day Feeling down, depressed, or hopeless: not at all Are you using contraception or practicing any form of control: No service: No Exam Narrative: Exam Narrative: Pleasant. Seems quite uncomfortable. Looks like she is about to vomit any moment. Prefers to keep eyes closed but opens them on request. Cranial nerves 2-12 intact. There is no nystagmus. Pupils are 2 mm equal and brisk. Head looks to be atraumatic. Rotational movement of the head particularly to the left causes marked increase in her symptoms subjectively. Present also with rotation to the right though not I think to the degree to the left. No exacerbation of dizziness head movement down nor up. Head impulse testing shows bilaterally fixed movement. Test of skew is negative. She is not exhibiting nystagmus. Moving all extremities without difficulty and has good strength throughout. She is well-perfused. Heart with regular rate and rhythm. No murmur rub or gallop identified. Abdomen is soft normoactive bowel sounds. She has anticipatory early tender palpation the left upper abdomen but when we slow down she is not actually tender here. She does have little flank tenderness. More in the left than the right. Extremities with full strength and with maintained fluidity of motion. TMs are clear. The blood in question is small amount of scabbed blood on the outer anterior aspect of the ear canal. Symmetrical in quantity and location. ---seems both relieved and embarrassed by this finding Const: Vital Signs, click to edit/add: Vital Signs - 24 hr 09/13/22 17:00 09/13/22 18:49 09/13/22 19:38 Pulse Rate [Right Pulse Oximeter] 63 Pulse Rate [orthos tatic lying Left P ulse Oximeter] Pulse Rate [orthos tatic sitting Left Pulse Oximeter] Pulse Rate [orthos tatic standing Lef t Pulse Oximeter] Respiratory Rate 16 Blood Pressure [Ri ght Upper Arm] 114/81 101/74 114/81 Blood Pressure [or thostatic lying Ri ght Arm] Blood Pressure [or thostatic sitting Right Arm] Blood Pressure [or thostatic standing Right Arm] Pulse Oximetry 99 Oxygen Delivery Me thod Room Air 09/13/22 19:40 Pulse Rate [Right Pulse Oximeter] Pulse Rate [orthos tatic lying Left P ulse Oximeter] 64 Pulse Rate [orthos tatic sitting Left Pulse Oximeter] 70 Pulse Rate [orthos tatic standing Lef t Pulse Oximeter] 64 Respiratory Rate Blood Pressure [Ri ght Upper Arm] Blood Pressure [or thostatic lying Ri ght Arm] 109/72 Blood Pressure [or thostatic sitting Right Arm] 104/68 Blood Pressure [or thostatic standing Right Arm] 117/76 Pulse Oximetry Oxygen Delivery Me thod Documenting provider has reviewed patient's vital signs: yes Course Vital Signs Vital signs: Initial Vital Signs Pulse Rate 63 09/13/22 17:00 Respiratory Rate 16 09/13/22 17:00 Blood Pressure 114/81 09/13/22 17:00 Blood Pressure Mean 92 09/13/22 17:00 Blood Pressure Position Supine 09/13/22 17:00 Pulse Oximetry 99 09/13/22 17:00 Oxygen Delivery Method Room Air 09/13/22 17:00 Vital Signs Pulse Rate 63 09/13/22 17:00 Respiratory Rate 16 09/13/22 17:00 Blood Pressure 114/81 09/13/22 17:00 Pulse Oximetry 99 09/13/22 17:00 Oxygen Delivery Method Room Air 09/13/22 17:00 Pulse Rate 64 09/13/22 19:40 Respiratory Rate 16 09/13/22 17:00 Blood Pressure 109/72 09/13/22 19:40 Pulse Oximetry 99 09/13/22 17:00 Oxygen Delivery Method Room Air 09/13/22 17:00 Medical Decision Making MDM Narrative Medical decision making narrative: Not sure what to make of the hints testing. She is now 3 days into this dizziness. Concerning is that this is still at rest or with her eyes closed. Duration I think this could affect the findings on hints as well as absence of nystagmus. It does appear that dizziness has led some features of lightheadedness and these unexplained syncopal events the might be vasovagal as subsequently then has developed vomiting and abdominal pain. I am less impressed with the abdominal pain. And suspect that this is secondary to vomiting. Initiating IV fluids. Will treat with some Valium for symptoms. May need to yet to central head imaging looking for indication of ischemic event or otherwise. Overall is improved on reassessment. Still experiencing sensations of spinning eyes closed or open. Still nauseated. Be initiating dose of Reglan. I think will look a little further with some CT imaging. MRI not available at this time. CT head with CTA head and neck is reassuring without any ischemic or occlusive findings. No aneurysms. Seems to have been a peripheral issue. Reassessment is markedly improved. She thought the Reglan in particular was great See patient discharge plan Lab Data Lab results reviewed: Yes I reviewed the patient's lab results Labs: Lab Results 09/13/22 09/13/22 09/13/22 Range/Units 17:45 17:45 18:05 Troponin I < 0.01 L (0.01-0.04) ng/mL NT-Pro-B Natriuret Pep 65 Cancelled pg/mL Urine Color (Yellow) Urine Appearance (Clear) Urine pH (5.0-8.5) Ur Specific [place] (1.000-1.030) Urine Protein (Negative) Urine Glucose (UA) (Negative) Urine Ketones (Negative) Urine Blood (Negative) Urine Nitrite (Negative) Urine Bilirubin (Negative) Urine Urobilinogen (0.2-1.0) Ur Leukocyte Esterase (Negative) Urine RBC (0-2) Urine WBC (0-5) Ur Squamous Epith Cells (None-Few) Urine Bacteria (None) POC Troponin I 0.00 L (0.01-0.04) ng/ml 09/13/22 Range/Units 19:20 Troponin I (0.01-0.04) ng/mL NT-Pro-B Natriuret Pep pg/mL Urine Color Yellow (Yellow) Urine Appearance Clear (Clear) Urine pH 7.5 (5.0-8.5) Ur Specific [place] 1.015 (1.000-1.030) Urine Protein Negative (Negative) Urine Glucose (UA) Negative (Negative) Urine Ketones Negative (Negative) Urine Blood Negative (Negative) Urine Nitrite Negative (Negative) Urine Bilirubin Negative (Negative) Urine Urobilinogen 0.2 (0.2-1.0) Ur Leukocyte Esterase Negative (Negative) Urine RBC 0-2 (0-2) Urine WBC 0-2 (0-5) Ur Squamous Epith Cells None (None-Few) Urine Bacteria None (None) POC Troponin I (0.01-0.04) ng/ml Discharge Plan Discharge Clinical Impression: Peripheral vertigo Patient Disposition: Home w/ Parent or Adult Condition: Improved Additional Instructions: Take care in transitions. Can try the medications if needed for repeat symptoms. Be seen for intractable vomiting, new and focal weakness. Do your best to quit smoking. [facility] I believe still has counselors available. Prescriptions: New metoclopramide HCl [Reglan] 10 mg tablet 10 mg PO TID PRN (Reason: nausea and vomiting) Qty: 12 0RF diazepam [Valium] 5 mg tablet 5 mg PO BID PRN (Reason: dizziness or vertigo) Qty: 6 0RF No Action trazodone 300 mg tablet 300 mg PO QHS Qty: 90 1RF estradiol [Estrace] 0.01 % (0.1 mg/gram) cream 0.5 g vaginal 2XW Qty: 42.5 3RF Rx Instructions: Use nightly for 2 weeks, then twice weekly. May apply with finger. gicdssnkpo-dtijyhylmhvqy-egga 50-300-40 mg capsule 1 cap PO TID PRN (Reason: pain) Qty: 20 0RF cephalexin 750 mg capsule 750 mg PO BID Qty: 14 0RF ibuprofen 800 mg tablet 800 mg PO Q8H PRN (Reason: pain) Qty: 20 0RF cephalexin 500 mg capsule 500 mg PO TID Qty: 21 0RF albuterol sulfate 90 mcg/actuation HFA aerosol inhaler 2 puff inhalation Q4-6H PRN estradiol 0.1 mg/24 hr patch semiweekly 1 patch transdermal 2XW MDD surgical menopause Qty: 8 12RF Rx Instructions: apply 1 patch for 3 days alternating with 1 patch for 4 days each week for 3 wks per 4-wk cycle ondansetron HCl 4 mg tablet 4 mg PO Q6H Qty: 10 0RF ketorolac 10 mg tablet 10 mg PO Q8H 5 Days Qty: 15 0RF acetaminophen 500 mg Tablet 1,000 mg PO Q6H PRN (Reason: Pain) Qty: 0 0RF ibuprofen 600 mg PO Q6H PRN (Reason: pain) 14 Days Qty: 60 0RF omeprazole 20 mg capsule,delayed release(DR/EC) 20 mg PO QDAY Qty: 90 1RF sertraline 100 mg tablet 100 mg PO DAILY Qty: 90 1RF tramadol 50 mg tablet 50 mg PO BID PRN (Reason: pain) Qty: 20 0RF fluticasone furoate-vilanterol 200-25 mcg/dose blister with device 1 inh inhalation DAILY Qty: 60 5RF Follow Up/Referrals: Danny Hernández MD [Primary Care Provider] - Stand Alone Forms: [facility]
[2022-09-13 18:49] VITALS: BP 101/74; BP 109/72
--- NOTE | 2022-09-13 18:49 | CRLHL7_ITS ---
For Patients: As a result of the Century Cures Act, medical imaging exams and procedure reports are released immediately into your electronic medical record. You may view this report before your referring provider. If you have questions, please contact your health care provider. INDICATION: Dizziness, loss of consciousness. TECHNIQUE: CTA neck with contrast bolus tracking, 3D angiographic rendering using maximum intensity projection (MIP) and images permanently archived. FINDINGS: There is no significant carotid artery stenosis or dissection. There is no significant vertebral artery stenosis or dissection. The soft tissues of the neck are within normal limits. The cervical spine is in normal alignment. Degenerative changes are noted in the cervical spine. IMPRESSION: Unremarkable neck CTA. No significant carotid or vertebral artery stenosis or dissection. Please note that all CT scans at this facility use dose modulation, iterative reconstruction, and/or weight-based dosing when appropriate to reduce radiation dose to as low as reasonably achievable. Dictated by Tank Macedo MD @ 09/13/2022 10:57:12 PM (Electronically Signed)
--- NOTE | 2022-09-13 18:49 | CRLHL7_ITS ---
For Patients: As a result of the Century Cures Act, medical imaging exams and procedure reports are released immediately into your electronic medical record. You may view this report before your referring provider. If you have questions, please contact your health care provider. INDICATION: Dizziness TECHNIQUE: CT head without contrast. COMPARISON: October 2019. FINDINGS: No intracranial hemorrhage. No discrete mass or mass effect. There is no midline shift. The basilar cisterns are patent. No hydrocephalus. The stark-white matter interface is otherwise preserved. No acute osseous abnormality. No extracalvarial soft tissue abnormality. The mastoid air cells are clear. The paranasal sinuses are well-aerated. The visualized portions of the orbits and globes are unremarkable. IMPRESSION: No acute intracranial process per unenhanced head CT. Please note that all CT scans at this facility use dose modulation, iterative reconstruction, and/or weight-based dosing when appropriate to reduce radiation dose to as low as reasonably achievable. Dictated by Danny Mdeeros MD @ 09/13/2022 7:51:22 PM (Electronically Signed)
--- NOTE | 2022-09-13 18:49 | CRLHL7_ITS ---
For Patients: As a result of the Century Cures Act, medical imaging exams and procedure reports are released immediately into your electronic medical record. You may view this report before your referring provider. If you have questions, please contact your health care provider. INDICATION: Dizziness, loss of consciousness. TECHNIQUE: CTA head with contrast bolus tracking, 3D angiographic rendering using maximum intensity projection (MIP) and images permanently archived. FINDINGS: There is normal opacification of the intracranial vasculature. There is no large vessel occlusion. No aneurysm is identified. IMPRESSION: Unremarkable head CTA. Please note that all CT scans at this facility use dose modulation, iterative reconstruction, and/or weight-based dosing when appropriate to reduce radiation dose to as low as reasonably achievable. Dictated by Tank Macedo MD @ 09/13/2022 10:56:06 PM (Electronically Signed)
[2022-09-13 19:05] LABS: NT Pro B Type NatriureticPept* 65 pg/mL
[2022-09-13 19:06] LABS: Troponin I* < 0.01 ng/mL (0.01-0.04)
[2022-09-13 19:33] LABS: Appearance Urine Clear (Clear); Bilirubin Urine Negative (Negative); Blood Urine Negative (Negative); Color Urine Yellow (Yellow); Glucose Urine Negative (Negative); Ketones Urine Negative (Negative); Leukocyte Esterase Urine Negative (Negative); Nitrite Urine Negative (Negative); Protein Urine Negative (Negative); Specific Gravity Urine 1.015 (1.000-1.030); Urobilinogen Urine 0.2 (0.2-1.0); pH Urine 7.5 (5.0-8.5)
[2022-09-13 19:38] VITALS: BP 114/81
[2022-09-13 19:40] VITALS: BP 104/68; BP 109/72; BP 117/76; PULSE 64; PULSE 70
[2022-09-13 19:46] LABS: RBC Urine 0-2 (0-2); WBC Urine 0-2 (0-5)
[2022-09-13 20:33] VITALS: BP 104/68
== END 2022-09-13 20:32 | disposition home or self-care (01) ==
PROVIDERS: Emergency Provider Family Medicine; PCP Family Medicine
DX: H81.393 Other peripheral vertigo, bilateral (principal)
CPT/HCPCS: 36415; 70450; 70496; 70498; 81001; 83880; 84484; 96374; 96375; 99284; 99285; J1885; J3360; J7030; Q9967

== ENCOUNTER 2022-09-17 09:58 | Emergency (ER) | payer BC, SELFPAY ==
[2022-09-17] VITALS (10 sets, daily range): BP systolic 105–112; BP diastolic 71–74; PULSE 54–82; RESP 16–18; TEMP 36.6; O2SAT 96–99; BMI 27.9
--- NOTE | 2022-09-17 10:26 | CRLHL7_ITS ---
For Patients: As a result of the Century Cures Act, medical imaging exams and procedure reports are released immediately into your electronic medical record. You may view this report before your referring provider. If you have questions, please contact your health care provider. Indication: Dizziness, vertigo Technique: Multiplanar, multisequence MRI of the brain obtained without contrast. Comparison: Same day CT head and CTA head/neck Findings: The ventricles and cortical sulci appear within normal limits for age. No hydrocephalus or herniation. No acute/subacute ischemia, intracranial hemorrhage or abnormal extra-axial fluid collection. White matter signal is unremarkable. Midline structures are unremarkable. Major expected intracranial flow voids are visualized. Bone marrow signal is unremarkable. No suspicious findings in the regional soft tissues. Solitary opacified right ethmoid air cells. No sinus air-fluid level or mastoid effusion. Unremarkable included orbits. Impression: Unremarkable MRI brain. No evidence of acute intracranial abnormality. Dictated by Gabby Pratt MD @ 09/17/2022 11:52:31 AM (Electronically Signed)
[2022-09-17 10:55] LABS: Eosinophils Absolute Auto 0.08 K/uL (0.00-0.50); Eosinophils Percent Auto 0.9 % (0.0-7.0); Hematocrit 34.2 % (33.0-51.0); Hemoglobin* 11.4 gm/dL (12.0-16.0); Immature Granulocytes Abs Auto 0.02 K/uL (0.00-0.30); Immature Granulocytes Pct Auto 0.2 %; Lymphocytes Percent Auto 17.4 % (20-44); Mean Corpuscular HGB Conc 33 gm/dL (32-36); Mean Corpuscular Hemoglobin 30 pg (26-34); Mean Corpuscular Volume 91 fL (80-100); Monocytes Percent Auto 5.6 % (0.0-11.0); Neutrophils Percent Auto 75.9 % (42.0-72.0); Platelet Count* 220 K/uL (140-440); RDW Coefficient of Variation % 12.8 % (11.5-15.5); Red Blood Count 3.76 m/uL (4.00-5.20); White Blood Count* 8.96 K/uL (4.50-11.00)
[2022-09-17 10:56] LABS: Slide Review Reflex No
[2022-09-17 11:10] LABS: Albumin* 3.8 g/dL (3.3-5.0)
[2022-09-17 11:11] LABS: Chloride* 106 mmol/L (96-114); Sodium* 137 mmol/L (135-149)
[2022-09-17 11:13] LABS: Bilirubin Total* 0.2 mg/dL (0.1-1.5); Carbon Dioxide* 26 mmol/L (20-32); Creatinine* 0.8 mg/dL (0.5-1.5); Est. Creatinine Clearance* 87.51; Estimated Glomerular Filt Rate 95 ml/min; Total Protein* 6.4 g/dL (6.0-8.3)
[2022-09-17 11:14] LABS: Alanine Aminotransferase* 56 U/L (4-35); Alkaline Phosphatase* 58 U/L (40-150); Aspartate Amino Transferase* 31 U/L (12-35); Blood Urea Nitrogen* 18 mg/dL (5-24); Calcium* 8.3 mg/dL (8.4-10.6); Glucose* 90 mg/dL (60-115)
[2022-09-17 11:16] LABS: Ethanol* < 0.01 % (0.01-0.03)
[2022-09-17 11:28] LABS: PCR FLU A Negative PCR FLU A (Negative); PCR FLU B Negative PCR FLU B (Negative); PCR RSV Negative PCR RSV (Negative)
[2022-09-17 11:29] LABS: SARS PCR* Negative SARS-CoV-2 (Negative)
[2022-09-17] MEDS: diphenhydrAMINE 25 MG in 0.9 % SODIUM CHLORIDE 100 ml 100 ML 402 MG IVPB (11:37)
[2022-09-17] MEDS: METHYLPREDNISOLONE SOD SUCC 62.5 MG/ML (125) 125 MG IVP (11:37)
[2022-09-17] MEDS: METOCLOPRAMIDE HCL 10 MG in 0.9 % SODIUM CHLORIDE 100 ml 100 ML 306 MG IVPB (11:38)
[2022-09-17] MEDS: 0.9 % SODIUM CHLORIDE 1000 ml 1,000 ML IV (11:38)
--- NOTE | 2022-09-17 11:43 | ED.DIZZY ---
HPI - Dizziness General Date Seen: 09/17/22 Chief Complaint: Dizziness/Vertigo Stated Complaint: Dizziness, blacking out Time Seen by Provider: 09/17/22 10:26 Source: patient Mode of arrival: ambulatory Limitations: no limitations History of Present Illness HPI Narrative: Patient is a 42-year-old female presents here with episodes of of vertigo, she has had these on off for the past few weeks and this is her 3rd ER visit for this here. Her last ER visit she had a workup including head CT and CT 80s, that were negative, she had some relief with use of Reglan while she was here, was sent home on Zofran. She says these episodes always occur when she sits upper stands, she never has he is lying in bed despite even turning over. She has had no numbness tingling weakness problems with speech, she denies a headache associated with this, fevers chills or sweats, no URI type symptoms in the last 6 weeks. Never before had this, denies a head injury. No past history of strokes, she is a nondiabetic, with these she does notice a little bit of numbness and tingling in her hands, but admits this may be related to some anxiety over she has over the situation. Denies alcohol or drug use. Exacerbating factors: change in body position and standing Relieving factors: lying down Associated symptoms: nausea and weakness Related Data Home Medications Medication Instructions Recorded Confirmed albuterol sulfate 90 mcg/actuation 2 puff inhalation Q4-6H PRN 10/12/21 09/06/22 aerosol inhaler Previous Rx's Medication Instructions Recorded omeprazole 20 mg capsule,delayed 20 mg PO QDAY #90 caps 04/04/22 release sertraline 100 mg tablet 100 mg PO DAILY #90 tabs 04/04/22 trazodone 300 mg tablet 300 mg PO QHS #90 tabs 04/29/22 acetaminophen 500 mg tablet 1,000 mg (2 x 500 mg) PO Q6H PRN 05/16/22 Pain #0 tabs ibuprofen 600 mg PO Q6H PRN pain 14 days #60 05/16/22 tabs estradiol 0.01% (0.1 mg/gram) 0.5 g vaginal 2XW #42.5 grams 06/10/22 vaginal cream (Estrace) estradiol 0.1 mg/24 hr semiweekly 1 patch transdermal 2XW #8 ea 07/22/22 transdermal patch [id number]-[id number]-[id number] 1 cap PO TID PRN pain #20 caps 07/28/22 50 mg-300 mg-40 mg capsule tramadol 50 mg tablet 50 mg PO BID PRN pain #20 tabs 08/02/22 fluticasone furoate 200 1 inh inhalation DAILY #60 ea 08/06/22 mcg-vilanterol 25 mcg/dose inhalation powder cephalexin 500 mg capsule 500 mg PO TID #21 caps 09/06/22 cephalexin 750 mg capsule 750 mg PO BID #14 caps 09/06/22 ibuprofen 800 mg tablet 800 mg PO Q8H PRN pain #20 tabs 09/06/22 ketorolac 10 mg tablet 10 mg PO Q8H 5 days #15 tabs 09/11/22 ondansetron HCl 4 mg tablet 4 mg PO Q6H #10 tabs 09/11/22 diazepam 5 mg tablet (Valium) 5 mg PO BID PRN dizziness or 09/13/22 vertigo #6 tabs metoclopramide HCl 10 mg tablet 10 mg PO TID PRN nausea and 09/13/22 (Reglan) vomiting #12 tabs Allergies Allergy/AdvReac Type Severity Reaction Status Date / Time hydrocodone Allergy Intermediate itchy Verified 09/13/22 19:00 Review of Systems Status of ROS: Reports: 10 or more systems reviewed and unremarkable except as noted in History and below [facility] Medical History Pain, joint, hip ?M25.559 - Pain in unspecified hip (ICD-10) Folliculitis ?L73.9 - Follicular disorder, unspecified (ICD-10) Mild persistent asthma ?J45.30 - Mild persistent asthma, uncomplicated (ICD-10) Migraine ?G43.909 - Migraine, unspecified, not intractable, without status migrainosus (ICD-10) Endometriosis ?N80.9 - Endometriosis, unspecified (ICD-10) Night sweats ?R61 - Generalized hyperhidrosis (ICD-10) History of COVID-19 ?Z86.16 - Personal history of COVID-19 (ICD-10) Restless legs syndrome (03/25/12) ?G25.81 - Restless legs syndrome (ICD-10) Moderate episode of recurrent major depressive disorder (02/23/07) ?F33.1 - Major depressive disorder, recurrent, moderate (ICD-10) Menorrhagia ?N92.0 - Excessive and frequent menstruation with regular cycle (ICD-10) Insomnia (01/07/14) ?G47.00 - Insomnia, unspecified (ICD-10) History of abnormal cervical Papanicolaou smear ?Z87.42 - Personal history of other diseases of the female genital tract (ICD-10) Generalized anxiety disorder ?F41.1 - Generalized anxiety disorder (ICD-10) Gastroesophageal reflux disease (06/16/08) ?K21.9 - Gastro-esophageal reflux disease without esophagitis (ICD-10) Essential tremor (08/16/07) ?G25.0 - Essential tremor (ICD-10) Dyspareunia in female ?N94.10 - Unspecified dyspareunia (ICD-10) Cyst of right ovary ?N83.201 - Unspecified ovarian cyst, right side (ICD-10) Cyst of left ovary ?N83.202 - Unspecified ovarian cyst, left side (ICD-10) Chronic abdominal pain ?R10.9 - Unspecified abdominal pain (ICD-10) ?G89.29 - Other chronic pain (ICD-10) Surgical History Status post laparoscopic hysterectomy ?Z90.710 - Acquired absence of both cervix and uterus (ICD-10) History of tubal ligation ?Z98.51 - Tubal ligation status (ICD-10) History of laparoscopy ?Z98.890 - Other specified postprocedural states (ICD-10) Family History Father High blood pressure Diabetes Chronic mental illness Mother High blood pressure Chronic mental illness Other ASCVD (arteriosclerotic cardiovascular disease) Social History Narrative: 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 She smokes daily. She drinks alcohol on occasion. She doesn't use recreational drugs. Smoking Status: Current every day smoker What tobacco products do you use: cigarettes Smoking packs per day: 0.5 Smoking cigarettes per day: 10.0 Years smoked: 28 Smoking pack-years: 14.00 Do you use any of these nicotine containing products: None Second hand tobacco smoke exposure: No How often do you have a drink containing alcohol: monthly or less Alcohol type: hard liquor How many standard drinks containing alcohol do you have on a typical day: 3 or 4 How often do you have six or more drinks on one occasion: Never AUDIT-C Alcohol total score: 2 Non-prescribed substance use: denies use Caffeine: No Little interest or pleasure in doing things: nearly every day Feeling down, depressed, or hopeless: not at all Are you using contraception or practicing any form of control: No service: No Exam Narrative: Exam Narrative: Patient is speaking normally, no problem with slurring words, oriented x3. Head eyes ears nose and throat exam show equal pupils, no scleral icterus, extraocular muscles are normal, no facial droop, speech is normal, trachea normal and midline. Thyroid normal midline palpable not enlarged. Chest shows symmetrical rise bilaterally, normal auscultation with no wheezes, no increased work of breathing, no overt bruising or lesions seen, no tenderness is noted on auscultation. Heart sounds normal with no S3-S4 no murmurs clicks or gallops. Abdomen shows no obvious masses or hepatosplenomegaly, no organomegaly, bowel sounds are normal in all quadrants. No tenderness is noted also in all quadrants. Upper and lower extremities show normal power, normal range of motion, pulses are normal, sensations normal, fine motor movements are normal, pelvis is stable to rocking. Cervical spine shows normal range of motion, and palpably not tender. Thoracic spine shows normal range of motion, and palpably not tender, lumbar spine shows no tenderness to palpation percussion and is otherwise normal range of motion. Skin shows no rashes, petechiae or eccymosis. Neurologically she does have horizontal nystagmus 2-3 beats, head impulse test was positive for this examiner. Const: Vital Signs, click to edit/add: Vital Signs - 24 hr 09/17/22 10:05 09/17/22 11:53 09/17/22 11:54 Temperature 97.8 F Pulse Rate 57 L 54 L Pulse Rate [Right Pulse Oximeter] 82 Respiratory Rate 18 16 16 Blood Pressure 112/74 Blood Pressure [Ri ght Upper Arm] 105/71 Pulse Oximetry 98 97 96 Oxygen Delivery Me thod Room Air Room Air Room Air 09/17/22 12:00 09/17/22 12:01 09/17/22 12:02 Temperature Pulse Rate 59 L 57 L 58 L Pulse Rate [Right Pulse Oximeter] Respiratory Rate 16 16 16 Blood Pressure 112/74 Blood Pressure [Ri ght Upper Arm] Pulse Oximetry 99 98 98 Oxygen Delivery Me thod Room Air Room Air Room Air 09/17/22 12:15 09/17/22 12:30 09/17/22 12:31 Temperature Pulse Rate 54 L 65 69 Pulse Rate [Right Pulse Oximeter] Respiratory Rate 16 16 16 Blood Pressure 107/72 Blood Pressure [Ri ght Upper Arm] Pulse Oximetry 97 99 99 Oxygen Delivery Me thod Room Air Room Air Room Air 09/17/22 12:45 Temperature Pulse Rate 58 L Pulse Rate [Right Pulse Oximeter] Respiratory Rate 16 Blood Pressure Blood Pressure [Ri ght Upper Arm] Pulse Oximetry 98 Oxygen Delivery Me thod Room Air Course Course Hospital Course: Discussed with the patient she is reassuring findings on examination labs, an MRI of her head, I do believe she has vestibular neuronitis given her nystagmus that she has, and I think some prednisone will be helpful going forward for this. I discussed with her that follow-up with her primary care physician wrote her off work also. Meclizine could also be helpful for this if she is able to tolerate the sedating side effects with this too. Went over worsening signs and symptoms and reasons to re-presented to the emergency room. Vital Signs Vital signs: Initial Vital Signs Temperature 97.8 F 09/17/22 10:05 Temperature Source Temporal Artery Scan 09/17/22 10:05 Pulse Rate 82 09/17/22 10:05 Respiratory Rate 18 09/17/22 10:05 Blood Pressure 105/71 09/17/22 10:05 Blood Pressure Mean 82 09/17/22 10:05 Blood Pressure Position Sitting 09/17/22 10:05 Pulse Oximetry 98 09/17/22 10:05 Oxygen Delivery Method Room Air 09/17/22 10:05 Vital Signs Temperature 97.8 F 09/17/22 10:05 Pulse Rate 82 09/17/22 10:05 Respiratory Rate 18 09/17/22 10:05 Blood Pressure 105/71 09/17/22 10:05 Pulse Oximetry 98 09/17/22 10:05 Oxygen Delivery Method Room Air 09/17/22 10:05 Temperature 97.8 F 09/17/22 10:05 Pulse Rate 58 L 09/17/22 12:45 Respiratory Rate 16 09/17/22 12:45 Blood Pressure 107/72 09/17/22 12:31 Pulse Oximetry 98 09/17/22 12:45 Oxygen Delivery Method Room Air 09/17/22 12:45 MDM - Dizziness MDM Narrative Medical decision making narrative: Life-threatening differential diagnosis considered include, CVA, other differential diagnosis include BPPV, labyrinthitis, Meniere's disease, vestibular neuronitis, migraine, multiple sclerosis, otitis media, viral syndrome as well as other etiologies Medical Records Attestation: I reviewed the patient's medical records. Lab Data Attestation: I reviewed the patient's lab results. Labs: Lab Results 09/17/22 09/17/22 Range/Units 10:27 10:35 WBC 8.96 (4.50-11.00) K/uL RBC 3.76 L (4.00-5.20) m/uL Hgb 11.4 L (12.0-16.0) gm/dL Hct 34.2 (33.0-51.0) % MCV 91 (80-100) fL MCH 30 (26-34) pg MCHC 33 (32-36) gm/dL RDW Coeff of Jose Alberto 12.8 (11.5-15.5) % Plt Count 220 (140-440) K/uL Neut % (Auto) 75.9 H (42.0-72.0) % Lymph % (Auto) 17.4 L (20-44) % [place] % (Auto) 5.6 (0.0-11.0) % Eos % (Auto) 0.9 (0.0-7.0) % Baso % (Auto) 0.0 (0.0-3.0) % Neut # (Auto) 6.80 (1.7-7.0) K/uL Lymph # (Auto) 1.60 (0.90-2.90) K/uL [place] # (Auto) 0.50 (0.00-0.90) K/UL Eos # (Auto) 0.08 (0.00-0.50) K/uL Baso # (Auto) 0.00 (0.00-0.30) K/uL Sodium 137 (135-149) mmol/L Potassium 4.0 (3.6-5.1) mmol/L Chloride 106 (96-114) mmol/L Carbon Dioxide 26 (20-32) mmol/L BUN 18 (5-24) mg/dL Creatinine 0.8 (0.5-1.5) mg/dL Estimated Creat Clear 87.51 Estimated GFR 95 ml/min Glucose 90 (60-115) mg/dL Calcium 8.3 L (8.4-10.6) mg/dL Total Bilirubin 0.2 (0.1-1.5) mg/dL Direct Bilirubin 0.0 (0.0-0.5) mg/dL AST 31 (12-35) U/L ALT 56 H (4-35) U/L Alkaline Phosphatase 58 (40-150) U/L Total Protein 6.4 (6.0-8.3) g/dL Albumin 3.8 (3.3-5.0) g/dL Ethyl Alcohol < 0.01 L (0.01-0.03) % SARS-CoV-2 (PCR) Negative SARS-CoV-2 (Negative) Influenza Type A (PCR) Negative PCR FLU A (Negative) Influenza Type B (PCR) Negative PCR FLU B (Negative) RSV (PCR) Negative PCR RSV (Negative) Imaging Data MRI - head: Radiologist's impression: atient: LIBRA GARY Facility:?[facility] Patient ID:?[id number] Site Patient ID:?[id number]. Site :?[id number] Study:?MRI Head W/O-09/17/2022 11:48:04 AM Ordering Physician:Tian Loving Final Report: Indication: Dizziness, vertigo Technique: Multiplanar, multisequence MRI of the brain obtained without contrast. Comparison: Same day CT head and CTA head/neck Findings: The ventricles and cortical sulci appear within normal limits for age. No hydrocephalus or herniation. No acute/subacute ischemia, intracranial hemorrhage or abnormal extra-axial fluid collection. White matter signal is unremarkable. Midline structures are unremarkable. Major expected intracranial flow voids are visualized. Bone marrow signal is unremarkable. No suspicious findings in the regional soft tissues. Solitary opacified right ethmoid air cells. No sinus air-fluid level or mastoid effusion. Unremarkable included orbits. Impression: Unremarkable MRI brain. No evidence of acute intracranial abnormality. Dictated by Gabby Pratt MD @ 09/17/2022 11:52:31 AM (Electronic Signature) Discharge Plan Discharge Clinical Impression: Acute vestibular neuronitis Patient Disposition: Home, Self-Care Condition: Stable Instructions: Vertigo (DC) Additional Instructions: Home rest prescription given via [facility] meds for prednisone, may also take meclizine 25 mg p.o. 3 times a day. Follow-up tomorrow with primary care, reassuring MRI note for work given Activity Level: No Restrictions Prescriptions: No Action trazodone 300 mg tablet 300 mg PO QHS Qty: 90 1RF estradiol [Estrace] 0.01 % (0.1 mg/gram) cream 0.5 g vaginal 2XW Qty: 42.5 3RF Rx Instructions: Use nightly for 2 weeks, then twice weekly. May apply with finger. jppqvlgmqw-ndswonbwenlqe-vbjg 50-300-40 mg capsule 1 cap PO TID PRN (Reason: pain) Qty: 20 0RF cephalexin 750 mg capsule 750 mg PO BID Qty: 14 0RF ibuprofen 800 mg tablet 800 mg PO Q8H PRN (Reason: pain) Qty: 20 0RF cephalexin 500 mg capsule 500 mg PO TID Qty: 21 0RF albuterol sulfate 90 mcg/actuation HFA aerosol inhaler 2 puff inhalation Q4-6H PRN estradiol 0.1 mg/24 hr patch semiweekly 1 patch transdermal 2XW MDD surgical menopause Qty: 8 12RF Rx Instructions: apply 1 patch for 3 days alternating with 1 patch for 4 days each week for 3 wks per 4-wk cycle ondansetron HCl 4 mg tablet 4 mg PO Q6H Qty: 10 0RF ketorolac 10 mg tablet 10 mg PO Q8H 5 Days Qty: 15 0RF acetaminophen 500 mg Tablet 1,000 mg PO Q6H PRN (Reason: Pain) Qty: 0 0RF ibuprofen 600 mg PO Q6H PRN (Reason: pain) 14 Days Qty: 60 0RF metoclopramide HCl [Reglan] 10 mg tablet 10 mg PO TID PRN (Reason: nausea and vomiting) Qty: 12 0RF diazepam [Valium] 5 mg tablet 5 mg PO BID PRN (Reason: dizziness or vertigo) Qty: 6 0RF omeprazole 20 mg capsule,delayed release(DR/EC) 20 mg PO QDAY Qty: 90 1RF sertraline 100 mg tablet 100 mg PO DAILY Qty: 90 1RF tramadol 50 mg tablet 50 mg PO BID PRN (Reason: pain) Qty: 20 0RF fluticasone furoate-vilanterol 200-25 mcg/dose blister with device 1 inh inhalation DAILY Qty: 60 5RF Follow Up/Referrals: Danny Hernández MD [Primary Care Provider] - Stand Alone Forms: [employer] Info Instructions
--- NOTE | 2022-09-17 13:03 | ED.NURSE ---
Pt was able to change to gown and back to clothing independently well, filled out MRI form independently well, changed positions in cot independently well, and did ambulate to BR independently well. Pt was using cellphone throughout most of ER visit.
== END 2022-09-17 13:08 | disposition home or self-care (01) ==
PROVIDERS: Emergency Provider Family Medicine; PCP Family Medicine
DX: H81.21 Vestibular neuronitis, right ear (principal)
CPT/HCPCS: 36415; 70551; 80048; 80076; 82077; 85025; 87631; 93005; 96374; 96375; 99284; 99285; J1200; J2765; J2930; J7030

== ENCOUNTER 2022-10-10 19:41 | Emergency (ER) | payer BC, SELFPAY ==
[2022-10-10 19:54] VITALS: BP 123/83; PULSE 75; RESP 16; TEMP 36.2; O2SAT 97; BMI 28.1
[2022-10-10 20:07] VITALS: BP 117/77; PULSE 71; RESP 20; O2SAT 97
--- NOTE | 2022-10-10 20:10 | CRLHL7_ITS ---
For Patients: As a result of the Cures Act, medical imaging exams and procedure reports are released immediately into your electronic medical record. You may view this report before your referring provider. If you have questions, please contact your health care provider. Indication: Trauma. Technique: Left shoulder, 3 views. Comparison: None. Findings: Bones: Alignment is normal. No fractures or bone lesions. Joint spaces: Unremarkable. Soft tissues: Unremarkable. Impression: No sign of acute injury. Dictated by Jeremi Roldan MD @ 10/10/2022 8:56:44 PM (Electronically Signed)
[2022-10-10] MEDS: IBUPROFEN 400 MG TABLET 600 MG PO (20:52)
--- NOTE | 2022-10-10 21:00 | ED_ITS ---
HPI - General Adult General Chief complaint: Fall/Minor Trauma Stated complaint: Vertigo, fell and hit shoulder, possibly head Time Seen by Provider: 10/10/22 19:49 Source: patient Mode of arrival: ambulatory Limitations: no limitations History of Present Illness HPI narrative: 42-year-old female coming in today complaining of left shoulder pain. Patient states that she had an episode of vertigo at home and fell sideways hitting her left shoulder on a dresser. She is not certain of whether not she hit her head or if she lost consciousness. She is not complaining of headache or neck pain. She has pain on top of the shoulder that radiates into the upper back and down her left arm. She denies current confusion, blurry vision or changes in her hearing. No recent illness. This happens to her frequently and, according to the patient, she has had thorough workups for it in the past. Related Data Home Medications Medication Instructions Recorded Confirmed albuterol sulfate 90 mcg/actuation 2 puff inhalation Q4-6H PRN 10/12/21 09/18/22 aerosol inhaler Previous Rx's Medication Instructions Recorded omeprazole 20 mg capsule,delayed 20 mg PO QDAY #90 caps 04/04/22 release sertraline 100 mg tablet 100 mg PO DAILY #90 tabs 04/04/22 trazodone 300 mg tablet 300 mg PO QHS #90 tabs 04/29/22 estradiol 0.01% (0.1 mg/gram) 0.5 g vaginal 2XW #42.5 grams 06/10/22 vaginal cream (Estrace) estradiol 0.1 mg/24 hr semiweekly 1 patch transdermal 2XW #8 ea 07/22/22 transdermal patch xwpeipepae-mcvhitaoobqnv-joskcuyw 1 cap PO TID PRN pain #20 caps 07/28/22 50 mg-300 mg-40 mg capsule fluticasone furoate 200 1 inh inhalation DAILY #60 ea 08/06/22 mcg-vilanterol 25 mcg/dose inhalation powder metoclopramide HCl 10 mg tablet 10 mg PO TID PRN nausea and 09/13/22 (Reglan) vomiting #12 tabs diazepam 10 mg tablet (Valium) 10 mg PO BID PRN vertigo #20 tabs 10/07/22 Allergies Allergy/AdvReac Type Severity Reaction Status Date / Time hydrocodone Allergy Intermediate itchy Verified 09/18/22 10:44 Review of Systems Status of ROS: Reports: 6 or more systems reviewed and unremarkable except as noted in History and below [facility] Medical History Pain, joint, hip ?M25.559 - Pain in unspecified hip (ICD-10) Folliculitis ?L73.9 - Follicular disorder, unspecified (ICD-10) Mild persistent asthma ?J45.30 - Mild persistent asthma, uncomplicated (ICD-10) Migraine ?G43.909 - Migraine, unspecified, not intractable, without status migrainosus (ICD-10) Endometriosis ?N80.9 - Endometriosis, unspecified (ICD-10) Night sweats ?R61 - Generalized hyperhidrosis (ICD-10) History of COVID-19 ?Z86.16 - Personal history of COVID-19 (ICD-10) Restless legs syndrome (03/25/12) ?G25.81 - Restless legs syndrome (ICD-10) Moderate episode of recurrent major depressive disorder (02/23/07) ?F33.1 - Major depressive disorder, recurrent, moderate (ICD-10) Menorrhagia ?N92.0 - Excessive and frequent menstruation with regular cycle (ICD-10) Insomnia (01/07/14) ?G47.00 - Insomnia, unspecified (ICD-10) History of abnormal cervical Papanicolaou smear ?Z87.42 - Personal history of other diseases of the female genital tract (ICD-10) Generalized anxiety disorder ?F41.1 - Generalized anxiety disorder (ICD-10) Gastroesophageal reflux disease (06/16/08) ?K21.9 - Gastro-esophageal reflux disease without esophagitis (ICD-10) Essential tremor (08/16/07) ?G25.0 - Essential tremor (ICD-10) Dyspareunia in female ?N94.10 - Unspecified dyspareunia (ICD-10) Cyst of right ovary ?N83.201 - Unspecified ovarian cyst, right side (ICD-10) Cyst of left ovary ?N83.202 - Unspecified ovarian cyst, left side (ICD-10) Chronic abdominal pain ?R10.9 - Unspecified abdominal pain (ICD-10) ?G89.29 - Other chronic pain (ICD-10) Surgical History Status post laparoscopic hysterectomy ?Z90.710 - Acquired absence of both cervix and uterus (ICD-10) History of tubal ligation ?Z98.51 - Tubal ligation status (ICD-10) History of laparoscopy ?Z98.890 - Other specified postprocedural states (ICD-10) Family History Father High blood pressure Diabetes Chronic mental illness Mother High blood pressure Chronic mental illness Other ASCVD (arteriosclerotic cardiovascular disease) Social History Narrative: 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 She smokes daily. She drinks alcohol on occasion. She doesn't use recreational drugs. Smoking Status: Current every day smoker What tobacco products do you use: brda connorettes Smoking packs per day: 0.5 Smoking cigarettes per day: 10.0 Years smoked: 28 Smoking pack-years: 14.00 Do you use any of these nicotine containing products: None Second hand tobacco smoke exposure: No How often do you have a drink containing alcohol: monthly or less Alcohol type: hard liquor How many standard drinks containing alcohol do you have on a typical day: 3 or 4 How often do you have six or more drinks on one occasion: Never AUDIT-C Alcohol total score: 2 Non-prescribed substance use: denies use Caffeine: No Little interest or pleasure in doing things: several days Feeling down, depressed, or hopeless: more than half the days Are you using contraception or practicing any form of control: No service: No Exam Narrative: Exam Narrative: Well-nourished well-developed patient, appears very uncomfortable. Alert and oriented. Answers questions appropriately. Patient speaks in full sentences without needing to catch her breath. HEENT: Normocephalic atraumatic. Scalp is without evidence of trauma, no hematoma or abrasions. Pupils are equally round reactive to light. Extraocular muscles are intact. Conjunctivae are moist without any icterus noted. Moist mucous membranes. No trauma noted to the inside of the mouth. Neck is soft without any lymphadenopathy or thyromegaly. No masses are appreciated. No tenderness to palpation of the cervical spine. No tenderness over the trapezius. Lungs: Clear to auscultation bilaterally no wheezes rhonchi or rales are appreciated. Patient takes deep breaths without any discomfort. Extremities: Shoulders have normal appearance and contour. There is no bruising noted. She has some tenderness diffusely over the entire shoulder area. No tenderness at the humerus. She has full range of passive motion and does not want to move her shoulder in active motion secondary to pain. There is no swelling noted. No abrasions. Skin: Well perfused without any obvious rashes. Const: Vital Signs, click to edit/add: Vital Signs - 24 hr 10/10/22 19:54 10/10/22 20:07 Temperature 97.2 F L Pulse Rate [Right Pulse Oximeter] 75 71 Respiratory Rate 16 20 Blood Pressure [Ri ght Upper Arm] 123/83 117/77 Pulse Oximetry 97 97 Oxygen Delivery Me thod Room Air Room Air Course Course Hospital Course: Shoulder x-ray was done, read by me, does not show any acute fractures. Patient was given ibuprofen in the ER. Vital Signs Vital signs: Initial Vital Signs Temperature 97.2 F L 10/10/22 19:54 Temperature Source Temporal Artery Scan 10/10/22 19:54 Pulse Rate 75 10/10/22 19:54 Pulse Rhythm Regular 10/10/22 19:54 Respiratory Rate 16 10/10/22 19:54 Blood Pressure 123/83 10/10/22 19:54 Blood Pressure Mean 96 10/10/22 19:54 Blood Pressure Position Sitting 10/10/22 19:54 Pulse Oximetry 97 10/10/22 19:54 Oxygen Delivery Method Room Air 10/10/22 19:54 Vital Signs Temperature 97.2 F L 10/10/22 19:54 Pulse Rate 75 10/10/22 19:54 Respiratory Rate 16 10/10/22 19:54 Blood Pressure 123/83 10/10/22 19:54 Pulse Oximetry 97 10/10/22 19:54 Oxygen Delivery Method Room Air 10/10/22 19:54 Temperature 97.2 F L 10/10/22 19:54 Pulse Rate 71 10/10/22 20:07 Respiratory Rate 20 10/10/22 20:07 Blood Pressure 117/77 10/10/22 20:07 Pulse Oximetry 97 10/10/22 20:07 Oxygen Delivery Method Room Air 10/10/22 20:07 Medical Decision Making MDM Narrative Medical decision making narrative: 42-year-old female shoulder contusion. We discussed symptomatic treatment and reasons for follow-up. Imaging Data Shoulder x-ray: Attestation: I have reviewed the pertinent imaging results. Radiologist's impression: Left shoulder, 3 views. Comparison: None. Findings: Bones: Alignment is normal. No fractures or bone lesions. Joint spaces: Unremarkable. Soft tissues: Unremarkable. Impression: No sign of acute injury. Discharge Plan Discharge Clinical Impression: Contusion of left shoulder Patient Disposition: Home, Self-Care Condition: Stable Additional Instructions: Ice the shoulder today for 20 minutes at a time, do not apply ice directly to skin. Okay to take ibuprofen or Tylenol as needed/as directed. Recommend gentle kisuj-xo-whuurv exercises and gentle stretching daily. Can use heat on sore areas for the next several days, do not apply heat directly to skin. Prescriptions: No Action trazodone 300 mg tablet 300 mg PO QHS Qty: 90 1RF estradiol [Estrace] 0.01 % (0.1 mg/gram) cream 0.5 g vaginal 2XW Qty: 42.5 3RF Rx Instructions: Use nightly for 2 weeks, then twice weekly. May apply with finger. zroourpwpy-hphqpcbgjgjis-ctok 50-300-40 mg capsule 1 cap PO TID PRN (Reason: pain) Qty: 20 0RF albuterol sulfate 90 mcg/actuation HFA aerosol inhaler 2 puff inhalation Q4-6H PRN estradiol 0.1 mg/24 hr patch semiweekly 1 patch transdermal 2XW MDD surgical menopause Qty: 8 12RF Rx Instructions: apply 1 patch for 3 days alternating with 1 patch for 4 days each week for 3 wks per 4-wk cycle metoclopramide HCl [Reglan] 10 mg tablet 10 mg PO TID PRN (Reason: nausea and vomiting) Qty: 12 0RF omeprazole 20 mg capsule,delayed release(DR/EC) 20 mg PO QDAY Qty: 90 1RF sertraline 100 mg tablet 100 mg PO DAILY Qty: 90 1RF fluticasone furoate-vilanterol 200-25 mcg/dose blister with device 1 inh inhalation DAILY Qty: 60 5RF diazepam [Valium] 10 mg tablet 10 mg PO BID PRN (Reason: vertigo) Qty: 20 0RF Follow Up/Referrals: Danny Hernández MD [Primary Care Provider] - Stand Alone Forms: [facility] Info Instructions
== END 2022-10-10 21:17 | disposition home or self-care (01) ==
PROVIDERS: Emergency Provider Family Medicine; PCP Family Medicine
DX: S40.012A Contusion of left shoulder, initial encounter (principal); W22.8XXA Striking against or struck by other objects, initial encounter
CPT/HCPCS: 73030; 99283; 99284; A9270

== ENCOUNTER 2022-10-19 13:50 | Emergency (ER) | payer BC, SELFPAY ==
[2022-10-19 14:02] VITALS: BP 104/73; PULSE 89; RESP 18; TEMP 35.9; O2SAT 99; BMI 27.4
--- NOTE | 2022-10-19 15:10 | ED.UPPEXIN ---
HPI - Extremity Injury (Upper) General Chief Complaint: Extremity Pain/Injury, Upper Stated Complaint: Left arm pain Time Seen by Provider: 10/19/22 15:00 History of Present Illness HPI narrative: This 42-year-old female comes in reporting tingling sensation and some episodes of pain radiating down from her elbow into her hand. She did fall and injured her left upper extremity and shoulder about a week ago. She was seen here for evaluation and had an x-ray done. There were no acute findings on the x-ray. The patient has been taking oxycodone and ibuprofen which she has her primary physician manage and states that these symptoms persist none the less. She does not have any weakness in her left upper extremity. Related Data Home Medications Medication Instructions Recorded Confirmed albuterol sulfate 90 mcg/actuation 2 puff inhalation Q4-6H PRN 10/12/21 10/11/22 aerosol inhaler Previous Rx's Medication Instructions Recorded omeprazole 20 mg capsule,delayed 20 mg PO QDAY #90 caps 04/04/22 release sertraline 100 mg tablet 100 mg PO DAILY #90 tabs 04/04/22 trazodone 300 mg tablet 300 mg PO QHS #90 tabs 04/29/22 estradiol 0.01% (0.1 mg/gram) 0.5 g vaginal 2XW #42.5 grams 06/10/22 vaginal cream (Estrace) estradiol 0.1 mg/24 hr semiweekly 1 patch transdermal 2XW #8 ea 07/22/22 transdermal patch nvtgpbqctg-vbjninllkxmtz-qixvqhor 1 cap PO TID PRN pain #20 caps 07/28/22 50 mg-300 mg-40 mg capsule fluticasone furoate 200 1 inh inhalation DAILY #60 ea 08/06/22 mcg-vilanterol 25 mcg/dose inhalation powder metoclopramide HCl 10 mg tablet 10 mg PO TID PRN nausea and 09/13/22 (Reglan) vomiting #12 tabs diazepam 10 mg tablet (Valium) 10 mg PO BID PRN vertigo #20 tabs 10/07/22 oxycodone 5 mg tablet 5 mg PO Q8H PRN pain #20 tabs 10/11/22 methylprednisolone 4 mg tablets in See Rx Instructions PO .COMPLEX 10/19/22 a dose pack (Medrol (Diego)) #21 ea Allergies Allergy/AdvReac Type Severity Reaction Status Date / Time hydrocodone Allergy Intermediate itchy Verified 10/11/22 09:14 Review of Systems Status of ROS: Reports: 10 or more systems reviewed and unremarkable except as noted in History and below Narrative: Constitutional: No fevers, no weight gain or loss. Eyes: No discharge. No vision changes. HENT: No congestion, no sore throat, no ear pain. Cardiovascular: No chest pain, no palpitations. Respiratory: No shortness of breath, no wheezes, no cough. Gastrointestinal: No abdominal pain, no vomiting, no diarrhea. Genitourinary: No dysuria, no hematuria. Musculoskeletal: Normal range of motion. Skin: No rashes, no pruritis. Neurological: No dizziness, weakness, speech change. Tingling sensation in the left upper arm. Endo/Heme/Allergies: No bruising or bleeding. No polydipsia. Pysch: no suicidality, no anxiety, no insomnia. All other systems reviewed and are negative. [facility] Medical History Pain, joint, hip ?M25.559 - Pain in unspecified hip (ICD-10) Folliculitis ?L73.9 - Follicular disorder, unspecified (ICD-10) Mild persistent asthma ?J45.30 - Mild persistent asthma, uncomplicated (ICD-10) Migraine ?G43.909 - Migraine, unspecified, not intractable, without status migrainosus (ICD-10) Endometriosis ?N80.9 - Endometriosis, unspecified (ICD-10) Night sweats ?R61 - Generalized hyperhidrosis (ICD-10) History of COVID-19 ?Z86.16 - Personal history of COVID-19 (ICD-10) Restless legs syndrome (03/25/12) ?G25.81 - Restless legs syndrome (ICD-10) Moderate episode of recurrent major depressive disorder (02/23/07) ?F33.1 - Major depressive disorder, recurrent, moderate (ICD-10) Menorrhagia ?N92.0 - Excessive and frequent menstruation with regular cycle (ICD-10) Insomnia (01/07/14) ?G47.00 - Insomnia, unspecified (ICD-10) History of abnormal cervical Papanicolaou smear ?Z87.42 - Personal history of other diseases of the female genital tract (ICD-10) Generalized anxiety disorder ?F41.1 - Generalized anxiety disorder (ICD-10) Gastroesophageal reflux disease (06/16/08) ?K21.9 - Gastro-esophageal reflux disease without esophagitis (ICD-10) Essential tremor (08/16/07) ?G25.0 - Essential tremor (ICD-10) Dyspareunia in female ?N94.10 - Unspecified dyspareunia (ICD-10) Cyst of right ovary ?N83.201 - Unspecified ovarian cyst, right side (ICD-10) Cyst of left ovary ?N83.202 - Unspecified ovarian cyst, left side (ICD-10) Chronic abdominal pain ?R10.9 - Unspecified abdominal pain (ICD-10) ?G89.29 - Other chronic pain (ICD-10) Surgical History Status post laparoscopic hysterectomy ?Z90.710 - Acquired absence of both cervix and uterus (ICD-10) History of tubal ligation ?Z98.51 - Tubal ligation status (ICD-10) History of laparoscopy ?Z98.890 - Other specified postprocedural states (ICD-10) Family History Father High blood pressure Diabetes Chronic mental illness Mother High blood pressure Chronic mental illness Other ASCVD (arteriosclerotic cardiovascular disease) Social History Narrative: 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 She smokes daily. She drinks alcohol on occasion. She doesn't use recreational drugs. Smoking Status: Current every day smoker What tobacco products do you use: cigarettes Smoking packs per day: 0.5 Smoking cigarettes per day: 10.0 Years smoked: 28 Smoking pack-years: 14.00 Do you use any of these nicotine containing products: None Second hand tobacco smoke exposure: No How often do you have a drink containing alcohol: monthly or less Alcohol type: hard liquor How many standard drinks containing alcohol do you have on a typical day: 3 or 4 How often do you have six or more drinks on one occasion: Never AUDIT-C Alcohol total score: 2 Non-prescribed substance use: denies use Caffeine: No Little interest or pleasure in doing things: several days Feeling down, depressed, or hopeless: more than half the days Are you using contraception or practicing any form of control: No service: No Exam Narrative: Exam Narrative: Constitutional: Well-developed, well-nourished, no acute distress. HEENT: Normocephalic, atraumatic. Neck: Normal range of motion. Nontender. Supple. Heart: Regular. No murmurs. Normal rate. Intact distal pulses. Lungs: Clear to auscultation. No chest discomfort. No wheezes, rhonchi, or rales. Abdomen: Normal bowel sounds. Nontender. No rebound tenderness. Genitalia: Deferred. Back: No midline tenderness. Normal range of motion. Extremities: Normal range of motion. No injury. The patient has good scrum project manager strength bilaterally. She reports tingling sensation diffusely throughout her forearm and hand. Skin: Intact. No rash. Warm. No erythema or pallor. Neurologic: No altered sensation. No weakness. Alert and oriented. Psychiatric: No suicidality. No anxiety or depression. No insomnia. Nursing notes and vitals signs are reviewed. Const: Vital Signs, click to edit/add: Vital Signs - 24 hr 10/19/22 14:02 Temperature 96.7 F L Pulse Rate [Right Pulse Oximeter] 89 Respiratory Rate 18 Blood Pressure [Ri ght Upper Arm] 104/73 Pulse Oximetry 99 Oxygen Delivery Me thod Room Air Course Vital Signs Vital signs: Initial Vital Signs Temperature 96.7 F L 10/19/22 14:02 Temperature Source Temporal Artery Scan 10/19/22 14:02 Pulse Rate 89 10/19/22 14:02 Respiratory Rate 18 10/19/22 14:02 Blood Pressure 104/73 10/19/22 14:02 Blood Pressure Mean 83 10/19/22 14:02 Blood Pressure Position Sitting 10/19/22 14:02 Pulse Oximetry 99 10/19/22 14:02 Oxygen Delivery Method Room Air 10/19/22 14:02 Vital Signs Temperature 96.7 F L 10/19/22 14:02 Pulse Rate 89 10/19/22 14:02 Respiratory Rate 18 10/19/22 14:02 Blood Pressure 104/73 10/19/22 14:02 Pulse Oximetry 99 10/19/22 14:02 Oxygen Delivery Method Room Air 10/19/22 14:02 Temperature 96.7 F L 10/19/22 14:02 Pulse Rate 89 10/19/22 14:02 Respiratory Rate 18 10/19/22 14:02 Blood Pressure 104/73 10/19/22 14:02 Pulse Oximetry 99 10/19/22 14:02 Oxygen Delivery Method Room Air 10/19/22 14:02 MDM - Extremity Injury (Upper) MDM Narrative Medical decision making narrative: This patient comes in with persistent symptoms after a fall where she injured her left shoulder and upper extremity. She has normal range of motion and good function and scrum project manager strength but reports tingling sensation and some episodes of pain. She has generalized anxiety disorder and frequently visits this emergency department with worries that something bad is happening. Her symptoms are likely due to some inflammation in pressure on nerve structures. I stated that there is not a good test to evaluate this but there is reassurance in that she has normal range of motion and good strength. She is okay to be discharged home. I did provide a prescription for Medrol Dosepak. Discharge Plan Discharge Clinical Impression: Arm paresthesia, left Condition: Stable Additional Instructions: Take medication as prescribed. Follow up with MD or return if worsening. Prescriptions: New methylprednisolone [Medrol (Diego)] 4 mg tablets,dose pack See Rx Instructions .ROUTE .COMPLEX Qty: 21 0RF Rx Instructions: orally per package directions No Action trazodone 300 mg tablet 300 mg PO QHS Qty: 90 1RF estradiol [Estrace] 0.01 % (0.1 mg/gram) cream 0.5 g vaginal 2XW Qty: 42.5 3RF Rx Instructions: Use nightly for 2 weeks, then twice weekly. May apply with finger. epqupukqdr-mkgayeyxbbcnd-bwfa 50-300-40 mg capsule 1 cap PO TID PRN (Reason: pain) Qty: 20 0RF oxycodone 5 mg tablet 5 mg PO Q8H PRN (Reason: pain) Qty: 20 0RF albuterol sulfate 90 mcg/actuation HFA aerosol inhaler 2 puff inhalation Q4-6H PRN estradiol 0.1 mg/24 hr patch semiweekly 1 patch transdermal 2XW MDD surgical menopause Qty: 8 12RF Rx Instructions: apply 1 patch for 3 days alternating with 1 patch for 4 days each week for 3 wks per 4-wk cycle metoclopramide HCl [Reglan] 10 mg tablet 10 mg PO TID PRN (Reason: nausea and vomiting) Qty: 12 0RF omeprazole 20 mg capsule,delayed release(DR/EC) 20 mg PO QDAY Qty: 90 1RF sertraline 100 mg tablet 100 mg PO DAILY Qty: 90 1RF fluticasone furoate-vilanterol 200-25 mcg/dose blister with device 1 inh inhalation DAILY Qty: 60 5RF diazepam [Valium] 10 mg tablet 10 mg PO BID PRN (Reason: vertigo) Qty: 20 0RF Follow Up/Referrals: Danny Hernández MD [Primary Care Provider] - Stand Alone Forms: [facility] Info Instructions
== END 2022-10-19 15:33 | disposition home or self-care (01) ==
PROVIDERS: Emergency Provider Emergency Medicine Emergency Medical Services; PCP Family Medicine
DX: R20.2 Paresthesia of skin (principal)
CPT/HCPCS: 99283; 99284

== ENCOUNTER 2022-10-22 12:11 | Emergency (ER) | payer BC, SELFPAY ==
[2022-10-22] VITALS (11 sets, daily range): BP systolic 107–125; BP diastolic 70–86; PULSE 43–73; RESP 10–24; TEMP 36.6; O2SAT 96–98; BMI 27.4
--- NOTE | 2022-10-22 | CRLHL7_ITS ---
For Patients: As a result of the Century Cures Act, medical imaging exams and procedure reports are released immediately into your electronic medical record. You may view this report before your referring provider. If you have questions, please contact your health care provider. INDICATION: Right lower quadrant pain. TECHNIQUE: CT abdomen and pelvis acquired with 83 mL Isovue 370 contrast. COMPARISON: CT abdomen/pelvis dated 05/24/2022. FINDINGS: Lower chest: Mild bilateral dependent atelectasis. No focal consolidation. Liver: Too small to characterize hypodense hepatic lesion in the right lobe, likely benign in the absence of a known malignancy. Gallbladder and bile ducts: Unremarkable. Pancreas: Unremarkable. Spleen: Unremarkable. Splenule is noted. Adrenal glands: Unremarkable. Kidneys: Kidneys enhance symmetrically, without hydronephrosis. Retroperitoneum: No lymphadenopathy. Bowel and mesentery: Bowel is nonobstructed. Scattered colonic diverticulosis, without evidence of acute diverticulitis. Normal appendix. No significant ascites. No pneumoperitoneum. Bladder: Unremarkable for degree of distension. Reproductive organs: Posthysterectomy. Pelvic lymph nodes: No lymphadenopathy. Vessels: Unremarkable. Abdominal wall: No acute abdominal wall abnormality. Bones: Multilevel degenerative changes of the spine. No suspicious/aggressive focal osseous lesion. IMPRESSION: 1. Normal appendix. 2. Scattered colonic diverticulosis, without evidence of acute diverticulitis. Please note that all CT scans at this facility use dose modulation, iterative reconstruction, and/or weight-based dosing when appropriate to reduce radiation dose to as low as reasonably achievable. Dictated by Dena Flores MD @ 10/22/2022 5:00:25 PM (Electronically Signed)
--- NOTE | 2022-10-22 | CRLHL7_ITS ---
For Patients: As a result of the Century Cures Act, medical imaging exams and procedure reports are released immediately into your electronic medical record. You may view this report before your referring provider. If you have questions, please contact your health care provider. Indication: NECK PAIN,POST FALL Technique: Noncontrast axial CT of the cervical spine with coronal and sagittal reformats are provided. Comparison: No prior studies available for comparison at this institution. Findings: The overall stature, alignment of the cervical spine is within normal limits. No fractures. The prevertebral soft tissues, cervical airway, dens and lateral masses are within normal limits. No aggressive osseous lesion. Mild scattered degenerative changes of the cervical spine. Disc osteophyte complex and uncovertebral joint hypertrophy at C5-6 results in mild spinal canal stenosis and mild bilateral neural foramen narrowing. Moderate disc space narrowing at C5-6. Impression: 1. No convincing radiographic evidence of acute osseous injury. 2. Scattered degenerative changes of the cervical spine. Please note that all CT scans at this facility use dose modulation, iterative reconstruction, and/or weight-based dosing when appropriate to reduce radiation dose to as low as reasonably achievable. Dictated by Danny Lechuga MD @ 10/22/2022 4:44:54 PM (Electronically Signed)
--- NOTE | 2022-10-22 | CRLHL7_ITS ---
For Patients: As a result of the Century Cures Act, medical imaging exams and procedure reports are released immediately into your electronic medical record. You may view this report before your referring provider. If you have questions, please contact your health care provider. INDICATION: Status post fall with head pain. COMPARISON: MR of the brain from 09/17/2022. TECHNIQUE: CT examination of the head was performed with 3 mm thick axial and 2 mm thick coronal and sagittal sections without intravenous contrast. Images were obtained from the vertex of the skull through the skull base, and I examined the images with the brain and bone windows. Please note that all CT scans at this facility use dose modulation, iterative reconstruction, and/or weight-based dosing when appropriate to reduce radiation dose to as low as reasonably achievable. FINDINGS: The brain is normal in appearance for the patient`s age on today`s study, with no sign of mass lesion, mass effect, hemorrhage, or edema. The ventricles and sulci are normal in appearance for the patient`s age. The visualized portions of the orbits are normal in appearance. The visualized paranasal sinuses and mastoids are clear. The osseous structures are normal in their appearance with no sign of abnormality in the skull base or calvarium. There has been no change compared to the previous MR of the brain. IMPRESSION: No sign of closed head injury. Normal noncontrast CT of the head for the patient`s age. Please note that all CT scans at this facility use dose modulation, iterative reconstruction, and/or weight-based dosing when appropriate to reduce radiation dose to as low as reasonably achievable. Dictated by Dagoberto Bowden MD @ 10/22/2022 4:36:32 PM (Electronically Signed)
[2022-10-22] MEDS: 0.9 % SODIUM CHLORIDE 1000 ml 1,000 ML IV (13:54)
[2022-10-22] MEDS: MORPHINE 4 MG/ML INJ IVP (13:54)
[2022-10-22] MEDS: ONDANSETRON 2 MG/ML inj 4 MG IVP (13:54)
--- NOTE | 2022-10-22 14:38 | ED_ITS ---
HPI - General Adult General Date Seen: 10/22/22 Chief complaint: Dizziness/Vertigo Stated complaint: Lightheaded, fell Time Seen by Provider: 10/22/22 12:50 Source: patient, RN notes reviewed and old records reviewed Mode of arrival: ambulatory Limitations: no limitations History of Present Illness HPI narrative: Lizette is a very pleasant 42-year-old female with history of hysterectomy who comes into the emergency room today after having fallen at work.? 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 She states that she was only out for a matter of seconds and that her staff had to tap her on the face in order to wake her up.? She experienced no loss confusion or loss of bowel or bladder control with this and woke up within a matter of seconds according to the staff.? She states that she does remember feeling like she had heartburn right before she fell a as well as some abdominal pain in her right lower quadrant.? She notes that these 2 symptoms just started right before she fell.? She did not have the symptoms earlier today. She does take omeprazole every day for heartburn.? She notes that she is chronically short of breath because she has asthma.? Right now she does have some abdominal discomfort right lower quadrant and states she feels exhausted.? She has no chest pain. Patient notes that she felt normal this morning.? She had no dehydration symptoms.? She notes that her neck continues to hurt as well. Patient is normally healthy.? Alcohol use is rare and she does smoke 1/2 pack cigarettes daily.? Denies any drug use or history of addictions. Patient has never had anything like this happen to her before.? She does not get lightheaded from discomfort. Related Data Home Medications Medication Instructions Recorded Confirmed albuterol sulfate 90 mcg/actuation 2 puff inhalation Q4-6H PRN 10/12/21 10/22/22 aerosol inhaler Previous Rx's Medication Instructions Recorded omeprazole 20 mg capsule,delayed 20 mg PO QDAY #90 caps 04/04/22 release sertraline 100 mg tablet 100 mg PO DAILY #90 tabs 04/04/22 trazodone 300 mg tablet 300 mg PO QHS #90 tabs 04/29/22 estradiol 0.01% (0.1 mg/gram) 0.5 g vaginal 2XW #42.5 grams 06/10/22 vaginal cream (Estrace) estradiol 0.1 mg/24 hr semiweekly 1 patch transdermal 2XW #8 ea 07/22/22 transdermal patch jhihqmkurd-figwemobyzwiw-yiovghac 1 cap PO TID PRN pain #20 caps 07/28/22 50 mg-300 mg-40 mg capsule fluticasone furoate 200 1 inh inhalation DAILY #60 ea 08/06/22 mcg-vilanterol 25 mcg/dose inhalation powder metoclopramide HCl 10 mg tablet 10 mg PO TID PRN nausea and 09/13/22 (Reglan) vomiting #12 tabs diazepam 10 mg tablet (Valium) 10 mg PO BID PRN vertigo #20 tabs 10/07/22 oxycodone 5 mg tablet 5 mg PO Q8H PRN pain #20 tabs 10/11/22 methylprednisolone 4 mg tablets in See Rx Instructions PO .COMPLEX 10/19/22 a dose pack (Medrol (Diego)) #21 ea Allergies Allergy/AdvReac Type Severity Reaction Status Date / Time hydrocodone Allergy Intermediate itchy Verified 10/22/22 12:42 Review of Systems Status of ROS: Reports: 10 or more systems reviewed and unremarkable except as noted in History and below Const: Denies: fever, chills or fatigue Eyes: Reports: change in vision (Describes tunnel vision prior to falling.) ENMT: Reports: neck pain; Denies: throat swelling, difficulty swallowing or hoarseness Cardio: Denies: chest pain GI: Reports: abdominal pain and nausea; Denies: vomiting, diarrhea or difficulty swallowing : Denies: painful urination or urinary frequency Musculo: Reports: neck pain; Denies: back pain, extremity pain or extremity swelling Integ/Breast: Denies: skin tenderness Neuro: Reports: headache; Denies: numbness in extremities or weakness in extremities Endo: Denies: fatigue Allergy/Immuno: Denies: throat swelling PFSH PFSH Medical History Pain, joint, hip ?M25.559 - Pain in unspecified hip (ICD-10) Folliculitis ?L73.9 - Follicular disorder, unspecified (ICD-10) Mild persistent asthma ?J45.30 - Mild persistent asthma, uncomplicated (ICD-10) Migraine ?G43.909 - Migraine, unspecified, not intractable, without status migrainosus (ICD-10) Endometriosis ?N80.9 - Endometriosis, unspecified (ICD-10) Night sweats ?R61 - Generalized hyperhidrosis (ICD-10) History of COVID-19 ?Z86.16 - Personal history of COVID-19 (ICD-10) Restless legs syndrome (03/25/12) ?G25.81 - Restless legs syndrome (ICD-10) Moderate episode of recurrent major depressive disorder (02/23/07) ?F33.1 - Major depressive disorder, recurrent, moderate (ICD-10) Menorrhagia ?N92.0 - Excessive and frequent menstruation with regular cycle (ICD-10) Insomnia (01/07/14) ?G47.00 - Insomnia, unspecified (ICD-10) History of abnormal cervical Papanicolaou smear ?Z87.42 - Personal history of other diseases of the female genital tract (ICD-10) Generalized anxiety disorder ?F41.1 - Generalized anxiety disorder (ICD-10) Gastroesophageal reflux disease (06/16/08) ?K21.9 - Gastro-esophageal reflux disease without esophagitis (ICD-10) Essential tremor (08/16/07) ?G25.0 - Essential tremor (ICD-10) Dyspareunia in female ?N94.10 - Unspecified dyspareunia (ICD-10) Cyst of right ovary ?N83.201 - Unspecified ovarian cyst, right side (ICD-10) Cyst of left ovary ?N83.202 - Unspecified ovarian cyst, left side (ICD-10) Chronic abdominal pain ?R10.9 - Unspecified abdominal pain (ICD-10) ?G89.29 - Other chronic pain (ICD-10) Surgical History Status post laparoscopic hysterectomy ?Z90.710 - Acquired absence of both cervix and uterus (ICD-10) History of tubal ligation ?Z98.51 - Tubal ligation status (ICD-10) History of laparoscopy ?Z98.890 - Other specified postprocedural states (ICD-10) Family History Father High blood pressure Diabetes Chronic mental illness Mother High blood pressure Chronic mental illness Other ASCVD (arteriosclerotic cardiovascular disease) Social History Narrative: 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 She smokes daily. She drinks alcohol on occasion. She doesn't use recreational drugs. Smoking Status: Current every day smoker What tobacco products do you use: cigarettes Smoking packs per day: 0.5 Smoking cigarettes per day: 10.0 Years smoked: 28 Smoking pack-years: 14.00 Do you use any of these nicotine containing products: None Second hand tobacco smoke exposure: No How often do you have a drink containing alcohol: monthly or less Alcohol type: hard liquor How many standard drinks containing alcohol do you have on a typical day: 3 or 4 How often do you have six or more drinks on one occasion: Never AUDIT-C Alcohol total score: 2 Non-prescribed substance use: denies use Caffeine: No Little interest or pleasure in doing things: several days Feeling down, depressed, or hopeless: more than half the days Are you using contraception or practicing any form of control: No service: No Exam Narrative: Exam Narrative: Awake and oriented.? Seems fatigued in appearance.? EOM is full pupils equal round reactive.? Patient does have tenderness to the back of her scalp as well as midline cervical tenderness.? No evidence of bleeding or laceration. Heart with regular rate and rhythm and lungs are clear to auscultation. No murmur or rub.? Abdomen is soft but she has tenderness in the right lower quadrant and positive rebound tenderness.? Lower extremities without edema. Const: Vital Signs, click to edit/add: Vital Signs - 24 hr 10/22/22 12:43 10/22/22 13:00 10/22/22 13:00 Temperature 97.9 F Pulse Rate [Pulse Oximeter] 73 62 Pulse Rate [orthos tatic sitting Puls e Oximeter] 71 Pulse Rate [orthos tatic standing Pul se Oximeter] 73 Respiratory Rate 18 24 Blood Pressure [Le ft Forearm] 120/86 107/70 Blood Pressure [or thostatic sitting Left Arm] 117/71 Blood Pressure [or thostatic standing Left Arm] 115/83 Pulse Oximetry 96 96 Oxygen Delivery Me thod Room Air Room Air 10/22/22 13:32 10/22/22 13:36 10/22/22 14:00 Temperature Pulse Rate [Pulse Oximeter] 73 52 L Pulse Rate [orthos tatic sitting Puls e Oximeter] Pulse Rate [orthos tatic standing Pul se Oximeter] Respiratory Rate 17 Blood Pressure [Le ft Forearm] 117/71 115/83 120/78 Blood Pressure [or thostatic sitting Left Arm] Blood Pressure [or thostatic standing Left Arm] Pulse Oximetry 97 97 Oxygen Delivery Me thod Room Air Room Air 10/22/22 14:30 10/22/22 15:40 10/22/22 16:00 Temperature Pulse Rate [Pulse Oximeter] 50 L 66 52 L Pulse Rate [orthos tatic sitting Puls e Oximeter] Pulse Rate [orthos tatic standing Pul se Oximeter] Respiratory Rate 10 L Blood Pressure [Le ft Forearm] 119/73 115/77 112/76 Blood Pressure [or thostatic sitting Left Arm] Blood Pressure [or thostatic standing Left Arm] Pulse Oximetry 98 98 96 Oxygen Delivery Ut thod Room Air Room Air Room Air 10/22/22 17:00 Temperature Pulse Rate [Pulse Oximeter] 54 L Pulse Rate [orthos tatic sitting Puls e Oximeter] Pulse Rate [orthos tatic standing Pul se Oximeter] Respiratory Rate 10 L Blood Pressure [Le ft Forearm] 125/85 Blood Pressure [or thostatic sitting Left Arm] Blood Pressure [or thostatic standing Left Arm] Pulse Oximetry 97 Oxygen Delivery Me thod Room Air Documenting provider has reviewed patient's vital signs: yes Course Course Hospital Course: At this time differential diagnosis includes appendicitis, seizure, vasovagal syncope, gastritis, acute coronary event, cardiac arrhythmia.? Will place an IV and use morphine 4 mg, Zofran 4 mg as well as 1 L of normal saline. EKG, troponin, environmental monitoring specialist, oximetry, CBC, comprehensive panel, CRP and urinalysis ordered at this time. Head CT and cervical spine CT given the fall with continued pain. Reevaluation(s) Reevaluation #1: Patient notes moderate relief with the pain medication but the pain is increased again. Patient will undergo abdominal CT. Will also give additional 0.5 mg of Dilaudid. Reevaluation #2: Orthostatic vital signs include laying down blood pressure 117/71 with a pulse of 56. Standing blood pressure 115/83 with a pulse of 75. We are able to access previous records and it does appear that this patient has had frequent visits to the emergency room. There does appear to be recent shoulder pain, history of anxiety. Labs include normal white count and CRP. Reevaluation #3: At this time I do discuss with patient that her head, neck and abdominal CTs all very reassuring. She does acknowledge that she has had a history of abdominal pain. Today there is no evidence of appendicitis. I do not see any further reason for narcotic pain medication. Second EKG does show sinus bradycardia at 44. I believe this is likely related to narcotic use in the ED. patient has 2 sets of negative troponins at this time. I do discuss with patient's primary possibility of Holter monitor but at this time would have her follow-up in the clinic is to be given the Zio patch which is not a possibility for me here in the emergency room after checking with Radiology. Vital Signs Vital signs: Initial Vital Signs Temperature 97.9 F 10/22/22 12:43 Temperature Source Temporal Artery Scan 10/22/22 12:43 Pulse Rate 73 10/22/22 12:43 Respiratory Rate 18 10/22/22 12:43 Blood Pressure 120/86 10/22/22 12:43 Blood Pressure Mean 97 10/22/22 12:43 Blood Pressure Position Sitting 10/22/22 12:43 Pulse Oximetry 96 10/22/22 12:43 Oxygen Delivery Method Room Air 10/22/22 12:43 Vital Signs Temperature 97.9 F 10/22/22 12:43 Pulse Rate 73 10/22/22 12:43 Respiratory Rate 18 10/22/22 12:43 Blood Pressure 120/86 10/22/22 12:43 Pulse Oximetry 96 10/22/22 12:43 Oxygen Delivery Method Room Air 10/22/22 12:43 Temperature 97.9 F 10/22/22 12:43 Pulse Rate 54 L 10/22/22 17:00 Respiratory Rate 10 L 10/22/22 17:00 Blood Pressure 125/85 10/22/22 17:00 Pulse Oximetry 97 10/22/22 17:00 Oxygen Delivery Method Room Air 10/22/22 17:00 Medical Decision Making MDM Narrative Medical decision making narrative: 1. Head and neck injury status post fall-fortunately no evidence of skull fracture, intracranial bleed or cervical fracture. CTs were all reassuring. Recommend ibuprofen or Tylenol as needed for discomfort. 2. Near syncopal episode-patient noted that prior to falling she felt some abdominal pain and some heartburn. No evidence of seizure-like activity. No history of fainting in the past. EKG show no evidence of ST or T-wave changes. Two sets of cardiac enzymes negative. Her heart rate has slowed to mid 40s but appropriately responds with increased heart rate with any sort of movement. I think this is likely secondary to the narcotic pain medications. Patient had consistent heart rate in the 60s upon her arrival. We are unable to do a Zio patch in the emergency room and thus patient will follow-up with clinic with her primary MD, Dr. Hernández. In the meantime she is to stay well hydrated, use compression stockings, not place herself in situations which could be dangerous if she would faint. Orthostatic vital signs show no change in her blood pressure but in increase of pulse from 56-75 when standing. 3. Chronic abdominal pain-patient was seen without the ability to look at past medical history. She had an abdominal exam worrisome for appendicitis. She has a normal CT with normal appendicitis. I was able to ascertain that there is a history of pelvic pain in the past as well as endometriosis. She has had a hysterectomy. 4. Disposition-home at this time. Recommend rest and pushing fluids. Return to the emergency room as needed. Patient had 2nd EKG that shows sinus bradycardia at a rate of 41. I believe this is likely secondary to the narcotics but I did talk to the patient about this. Is now back up into the 50s. She has no acute ST or T-wave changes and 2 sets of cardiac enzymes are negative. I talked to her about staying extra time to make sure that her heart rate did not decrease any further. She declines this and wants to go home. I did speak to her about using theZio patch. Recommend pushing fluids and avoiding any situation which may place her at risk if she falls. Note for next 2 days off of work. Again, any movement increases her heart rate and now she is consistently in the 50s to 60s. She plans on following up as directed with her primary. Medical Records Medical records reviewed: Yes I reviewed the patient's medical records Lab Data Lab results reviewed: Yes I reviewed the patient's lab results Labs: Lab Results 10/22/22 10/22/22 Range/Units 17:36 Unknown WBC 9.28 (4.50-11.00) K/uL RBC 4.63 (4.00-5.20) m/uL Hgb 13.9 (12.0-16.0) gm/dL Hct 42.1 (33.0-51.0) % MCV 91 (80-100) fL MCH 30 (26-34) pg MCHC 33 (32-36) gm/dL Plt Count 297 (140-440) K/uL Neut % (Auto) 74.4 H (42.0-72.0) % Lymph % (Auto) 18.9 L (20-44) % [place] % (Auto) 5.1 (0.0-11.0) % Eos % (Auto) 0.4 (0.0-7.0) % Baso % (Auto) 0.1 (0.0-3.0) % Neut # (Auto) 6.90 (1.7-7.0) K/uL Lymph # (Auto) 1.80 (0.90-2.90) K/uL [place] # (Auto) 0.50 (0.00-0.90) K/UL Eos # (Auto) 0.00 (0.00-0.50) K/uL Baso # (Auto) 0.00 (0.00-0.30) K/uL Abs Immat Gran (auto) 0.10 (0.00-0.30) K/uL Imm/Tot Granulo (auto) 1.1 % Sodium 137 (135-149) mmol/L Potassium 3.7 (3.6-5.1) mmol/L Chloride 105 (96-114) mmol/L Carbon Dioxide 27 (20-32) mmol/L BUN 16 (5-24) mg/dL Creatinine 0.8 (0.5-1.5) mg/dL Estimated Creat Clear 87.51 Estimated GFR 95 ml/min Glucose 81 (60-115) mg/dL Calcium 9.0 (8.4-10.6) mg/dL Total Bilirubin 0.5 (0.1-1.5) mg/dL AST 23 (12-35) U/L ALT 22 (4-35) U/L Alkaline Phosphatase 68 (40-150) U/L C-Reactive Protein < 0.5 L (0.5-1.0) mg/dL Total Protein 7.5 (6.0-8.3) g/dL Albumin 4.4 (3.3-5.0) g/dL Urine Color Yellow (Yellow) Urine Appearance Clear (Clear) Urine pH 5.5 (5.0-8.5) Ur Specific [place] 1.020 (1.000-1.030) Urine Protein Negative (Negative) Urine Glucose (UA) Negative (Negative) Urine Ketones Negative (Negative) Urine Blood Negative (Negative) Urine Nitrite Negative (Negative) Urine Bilirubin Negative (Negative) Urine Urobilinogen 0.2 (0.2-1.0) Ur Leukocyte Esterase Negative (Negative) POC Troponin I 0.00 L (0.01-0.04) ng/ml Imaging Data CT scan - head: Attestation: I have reviewed the pertinent imaging results. My impression: No evidence of intracranial bleed Radiologist's impression: The brain is normal in appearance for the patient`s age on today`s study, with no sign of mass lesion, mass effect, hemorrhage, or edema. The ventricles and sulci are normal in appearance for the patient`s age. The visualized portions of the orbits are normal in appearance. The visualized paranasal sinuses and mastoids are clear. The osseous structures are normal in their appearance with no sign of abnormality in the skull base or calvarium. There has been no change compared to the previous MR of the brain. IMPRESSION: No sign of closed head injury. Normal noncontrast CT of the head for the patient`s age. Cervical spine CT: Attestation: I have reviewed the pertinent imaging results. Radiologist's impression: The overall stature, alignment of the cervical spine is within normal limits. No fractures. The prevertebral soft tissues, cervical airway, dens and lateral masses are within normal limits. No aggressive osseous lesion. Mild scattered degenerative changes of the cervical spine. Disc osteophyte complex and uncovertebral joint hypertrophy at C5-6 results in mild spinal canal stenosis and mild bilateral neural foramen narrowing. Moderate disc space narrowing at C5-6. Impression: 1. No convincing radiographic evidence of acute osseous injury. 2. Scattered degenerative changes of the cervical spine. CT scan - abdomen: Attestation: I have reviewed the pertinent imaging results. Radiologist's impression: Liver: Too small to characterize hypodense hepatic lesion in the right lobe, likely benign in the absence of a known malignancy. Gallbladder and bile ducts: Unremarkable. Pancreas: Unremarkable. Spleen: Unremarkable. Splenule is noted. Adrenal glands: Unremarkable. Kidneys: Kidneys enhance symmetrically, without hydronephrosis. Retroperitoneum: No lymphadenopathy. Bowel and mesentery: Bowel is nonobstructed. Scattered colonic diverticulosis, without evidence of acute diverticulitis. Normal appendix. No significant ascites. No pneumoperitoneum. Bladder: Unremarkable for degree of distension. Reproductive organs: Posthysterectomy. Pelvic lymph nodes: No lymphadenopathy. Vessels: Unremarkable. Abdominal wall: No acute abdominal wall abnormality. Bones: Multilevel degenerative changes of the spine. No suspicious/aggressive focal osseous lesion. IMPRESSION: 1. Normal appendix. 2. Scattered colonic diverticulosis, without evidence of acute diverticulitis. ECG Data Attestation: I personally reviewed and interpreted this ECG as follows: Interpretation: EKG by my read shows sinus bradycardia at a rate of 55. Normal QT and MN intervals. No noted acute ST or T-wave changes. Second EKG shows sinus bradycardia rate of 44. I do not note any acute ST or T- wave changes. I do not note any QRS morphology change Discharge Plan Discharge Clinical Impression: Bradycardia, Near syncope Chronic pain Qualifiers: Chronic pain type: other chronic pain Qualified Code(s): G89.29 - Other chronic pain Patient Disposition: Home, Self-Care Condition: Improved Additional Instructions: At this time suggest pushing fluids. Rest. Prior to standing up with go legs 1st. Suggest using compression stockings while at work. Ibuprofen or Tylenol may be used for discomfort. Follow-up with your primary MD for recheck and consideration for heart monitor if your systems persist. Return to the emergency room as needed. Note for work off 10/23 and 10/24. Prescriptions: No Action trazodone 300 mg tablet 300 mg PO QHS Qty: 90 1RF estradiol [Estrace] 0.01 % (0.1 mg/gram) cream 0.5 g vaginal 2XW Qty: 42.5 3RF Rx Instructions: Use nightly for 2 weeks, then twice weekly. May apply with finger. wqwjdwlcem-nrlbyihxgrabk-fpxt 50-300-40 mg capsule 1 cap PO TID PRN (Reason: pain) Qty: 20 0RF oxycodone 5 mg tablet 5 mg PO Q8H PRN (Reason: pain) Qty: 20 0RF albuterol sulfate 90 mcg/actuation HFA aerosol inhaler 2 puff inhalation Q4-6H PRN estradiol 0.1 mg/24 hr patch semiweekly 1 patch transdermal 2XW MDD surgical menopause Qty: 8 12RF Rx Instructions: apply 1 patch for 3 days alternating with 1 patch for 4 days each week for 3 wks per 4-wk cycle methylprednisolone [Medrol (Diego)] 4 mg tablets,dose pack See Rx Instructions .ROUTE .COMPLEX Qty: 21 0RF Rx Instructions: orally per package directions metoclopramide HCl [Reglan] 10 mg tablet 10 mg PO TID PRN (Reason: nausea and vomiting) Qty: 12 0RF omeprazole 20 mg capsule,delayed release(DR/EC) 20 mg PO QDAY Qty: 90 1RF sertraline 100 mg tablet 100 mg PO DAILY Qty: 90 1RF fluticasone furoate-vilanterol 200-25 mcg/dose blister with device 1 inh inhalation DAILY Qty: 60 5RF diazepam [Valium] 10 mg tablet 10 mg PO BID PRN (Reason: vertigo) Qty: 20 0RF Follow Up/Referrals: Danny Hernández MD [Primary Care Provider] - Stand Alone Forms: [id number] Info Instructions
[2022-10-22] MEDS: HYDROmorphone 0.5 mg/0.5 ml inj IVP (15:01)
[2022-10-22 15:05] LABS: Appearance Urine Clear (Clear); Bilirubin Urine Negative (Negative); Color Urine Yellow (Yellow); Glucose Urine Negative (Negative); Ketones Urine Negative (Negative)
[2022-10-22 15:06] LABS: Blood Urine Negative (Negative); Protein Urine Negative (Negative); Urobilinogen Urine 0.2 (0.2-1.0); pH Urine 5.5 (5.0-8.5)
[2022-10-22 15:07] LABS: Leukocyte Esterase Urine Negative (Negative); Nitrite Urine Negative (Negative)
[2022-10-22 15:10] LABS: White Blood Count* 9.28 K/uL (4.50-11.00)
[2022-10-22 15:11] LABS: Basophils Percent Auto 0.1 % (0.0-3.0); Eosinophils Percent Auto 0.4 % (0.0-7.0); Hematocrit 42.1 % (33.0-51.0); Hemoglobin* 13.9 gm/dL (12.0-16.0); Immature Granulocytes Pct Auto 1.1 %; Lymphocytes Percent Auto 18.9 % (20-44); Mean Corpuscular HGB Conc 33 gm/dL (32-36); Mean Corpuscular Hemoglobin 30 pg (26-34); Mean Corpuscular Volume 91 fL (80-100); Monocytes Percent Auto 5.1 % (0.0-11.0); Neutrophils Percent Auto 74.4 % (42.0-72.0); Platelet Count* 297 K/uL (140-440); Red Blood Count 4.63 m/uL (4.00-5.20)
[2022-10-22 15:12] LABS: Slide Review Reflex No
[2022-10-22 15:23] LABS: Potassium* 3.7 mmol/L (3.6-5.1); Sodium* 137 mmol/L (135-149)
[2022-10-22 15:24] LABS: Alanine Aminotransferase* 22 U/L (4-35); Albumin* 4.4 g/dL (3.3-5.0); Alkaline Phosphatase* 68 U/L (40-150); Aspartate Amino Transferase* 23 U/L (12-35); Bilirubin Total* 0.5 mg/dL (0.1-1.5); Blood Urea Nitrogen* 16 mg/dL (5-24); Carbon Dioxide* 27 mmol/L (20-32); Chloride* 105 mmol/L (96-114); Creatinine* 0.8 mg/dL (0.5-1.5); Est. Creatinine Clearance* 87.51; Estimated Glomerular Filt Rate 95 ml/min; Glucose* 81 mg/dL (60-115); Total Protein* 7.5 g/dL (6.0-8.3)
[2022-10-22 15:25] LABS: C Reactive Protein* < 0.5 mg/dL (0.5-1.0)
== END 2022-10-22 18:39 | disposition home or self-care (01) ==
PROVIDERS: Family Medicine; Emergency Provider Family Medicine; PCP Family Medicine
DX: R00.1 Bradycardia, unspecified (principal); R55 Syncope and collapse; R42 Dizziness and giddiness
CPT/HCPCS: 36415; 70450; 72125; 74177; 80053; 81003; 84484; 85025; 86140; 93005; 96374; 96375; 99285; J1170; J2270; J2405; J7030; Q9967

== ENCOUNTER 2022-10-29 12:31 | Outpatient (CLI) | payer BC, SELFPAY | END 2022-10-29 12:32 | disposition home or self-care (01) | LOC: RAD 12:31 | PROVIDERS: PCP Family Medicine; Visit Provider Family Medicine | DX: R55 Syncope and collapse (principal) | CPT/HCPCS: 93225; 93226 ==

== ENCOUNTER 2022-10-30 17:45 | Emergency (ER) | payer BC, SELFPAY ==
[2022-10-30] VITALS (15 sets, daily range): BP systolic 107–124; BP diastolic 61–75; PULSE 71–93; RESP 16; TEMP 36.3; O2SAT 93–100; BMI 25.8
--- NOTE | 2022-10-30 18:15 | ED.GENADULT ---
HPI - General Adult General Time Seen by Provider: 18:16 Date Seen: 10/30/22 Chief complaint: Chest Pain Stated complaint: Tightness in chest Time Seen by Provider: 10/30/22 17:47 Source: patient Mode of arrival: ambulatory Limitations: no limitations History of Present Illness HPI narrative: Lizette is a 6-year-old female past medical history includes generalize anxiety disorder, major depression, GERD, mild persistent asthma, chronic pain, paresthesia of the left arm, migraine, restless legs syndrome presents emerged department via private car with chest tightness. Patient states symptoms have been going on for the last week, she explains this chest tightness with radiation of pain from her left neck down her left arm, no recent injury, pain is worse with inspiration. Patient does smoke cigarettes, he denies any cardiac history, no nausea vomiting, but she has had diarrhea. Patient was seen here in 0 10/24 for his syncopal spell, imaging at that time were reassuring, she was told to eat and hydrate more, patient states her oral intake has decreased, she was instructed to wear a 48 hour Holter monitor which she has on right now. She has had increased weakness and fatigue, no syncopal spells since last week. She did use her asthma medications with no improvement, she has had a dry cough, she has had chills but no fevers, associated allergies with congestion. No history of any PEs or DVTs in the past. Patient did follow up with her primary care provider after her previous visit she was set up with a Holter monitor, primary care provider thought it was possible radicular pain that is causing her left arm pain, pain is 8/10, constant ache, she does get some tingling and paresthesias down her left arm, she has had this in the past, she denies any neck injury at this time. She denies any dizziness, she has occasional lightheadedness. No other concerns at this time. Related Data Home Medications Medication Instructions Recorded Confirmed albuterol sulfate 90 mcg/actuation 2 puff inhalation Q4-6H PRN 10/12/21 11/01/22 aerosol inhaler Previous Rx's Medication Instructions Recorded sertraline 100 mg tablet 100 mg PO DAILY #90 tabs 04/04/22 trazodone 300 mg tablet 300 mg PO QHS #90 tabs 04/29/22 estradiol 0.01% (0.1 mg/gram) 0.5 g vaginal 2XW #42.5 grams 06/10/22 vaginal cream (Estrace) estradiol 0.1 mg/24 hr semiweekly 1 patch transdermal 2XW #8 ea 07/22/22 transdermal patch [id number] 1 cap PO TID PRN pain #20 caps 07/28/22 50 mg-300 mg-40 mg capsule fluticasone furoate 200 1 inh inhalation DAILY #60 ea 08/06/22 mcg-vilanterol 25 mcg/dose inhalation powder omeprazole 20 mg capsule,delayed 20 mg PO QDAY #90 caps 10/28/22 release albuterol sulfate 2.5 mg/0.5 mL 5 mg inhalation QID PRN shortness 11/01/22 solution for nebulization of breath or wheezing #30 ea nebulizers #1 ea 11/01/22 oxycodone 5 mg tablet 5 mg PO Q8H PRN pain #20 tabs 11/01/22 prednisone 20 mg tablet 10 - 40 mg (0.5 - 2 x 20 mg) PO 11/01/22 QDAY #14 tabs Allergies Allergy/AdvReac Type Severity Reaction Status Date / Time hydrocodone Allergy Intermediate itchy Verified 11/01/22 10:01 Review of Systems Status of ROS: Reports: 10 or more systems reviewed and unremarkable except as noted in History and below PFSH [facility] Surgical History Status post laparoscopic hysterectomy ?Z90.710 - Acquired absence of both cervix and uterus (ICD-10) History of tubal ligation ?Z98.51 - Tubal ligation status (ICD-10) History of laparoscopy ?Z98.890 - Other specified postprocedural states (ICD-10) Family History Father High blood pressure Diabetes Chronic mental illness Mother High blood pressure Chronic mental illness Other ASCVD (arteriosclerotic cardiovascular disease) Social History Narrative: 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 She smokes daily. She drinks alcohol on occasion. She doesn't use recreational drugs. Smoking Status: Current every day smoker What tobacco products do you use: cigarettes Smoking packs per day: 0.5 Smoking cigarettes per day: 10.0 Years smoked: 28 Smoking pack-years: 14.00 Do you use any of these nicotine containing products: None Second hand tobacco smoke exposure: No How often do you have a drink containing alcohol: monthly or less Alcohol type: hard liquor How many standard drinks containing alcohol do you have on a typical day: 3 or 4 How often do you have six or more drinks on one occasion: Never AUDIT-C Alcohol total score: 2 Non-prescribed substance use: denies use Caffeine: No Little interest or pleasure in doing things: several days Feeling down, depressed, or hopeless: more than half the days Are you using contraception or practicing any form of control: No service: No Exam Narrative: Exam Narrative: General: No obvious distress laying comfortably, she is nontoxic in appearance, HEENT: Tympanic membranes within normal limits bilaterally, oropharynx is clear and moist, pupils equal round reactive to light, extraocular muscles intact : Neck supple, full range of motion, nontender to palpation the cervical spine Lungs: Clear to auscultation bilaterally : Heart: normal sinus rhythm S1-S2 Abdomen: Soft, nontender, no rebound or guarding, bowel sounds present Muscle skeletal: Mild tenderness to palpation the left upper anterior chest wall area, Holter monitor present Lower extremities: +5 strength upper lower extremities, +5 strength in her upper extremities Neuro alert awake and oriented x3 Const: Vital Signs, click to edit/add: Vital Signs - 24 hr 10/30/22 17:54 10/30/22 17:54 10/30/22 17:57 Temperature 97.3 F L Pulse Rate 71 Pulse Rate [Right Pulse Oximeter] 79 Respiratory Rate 16 Blood Pressure 115/75 Blood Pressure [Ri ght Upper Arm] 115/75 Pulse Oximetry 97 98 Oxygen Delivery Me thod Room Air 10/30/22 18:00 10/30/22 18:16 10/30/22 18:30 Temperature Pulse Rate 72 73 77 Pulse Rate [Right Pulse Oximeter] Respiratory Rate Blood Pressure Blood Pressure [Ri ght Upper Arm] Pulse Oximetry 98 97 96 Oxygen Delivery Me thod 10/30/22 18:32 10/30/22 18:45 10/30/22 19:00 Temperature Pulse Rate 76 76 90 Pulse Rate [Right Pulse Oximeter] Respiratory Rate Blood Pressure 109/61 Blood Pressure [Ri ght Upper Arm] Pulse Oximetry 96 100 98 Oxygen Delivery Me thod 10/30/22 19:01 10/30/22 19:15 Temperature Pulse Rate 90 93 Pulse Rate [Right Pulse Oximeter] Respiratory Rate Blood Pressure 107/61 Blood Pressure [Ri ght Upper Arm] Pulse Oximetry 98 93 Oxygen Delivery Me thod Course Course Hospital Course: 6:00 PM: AIDET performed. Workup will include EKG, D-dimer, troponin, CBC, CRP CMP and lipase, XR chest PA and lateral, pain is mostly reproducible, Toradol 15 mg IV, 0.9 normal saline bolus, albuterol nebulizer and dexamethasone 10 mg for her asthma. Patient was in agreement. Differential diagnosis include but not limited to ACS, NSTEMI, STEMI, asthma exacerbation, COPD exacerbation, viral pneumonia, bacterial pneumonia, anxiety depression, seizure disorder, vasovagal episode, dehydration, costochondritis, cervical radiculopathy as well as other etiologies. Bedside EKG showed a normal sinus rhythm, bpm 74, incomplete right bundle branch block seen on previous, cannot rule out anterior infarct, age undetermined but seen on previous, per ED provider. XR chest PA and lateral showed no acute cardiopulmonary process. Per ED provider. Reevaluation(s) Time of Reevaluation #1: 19:53 Reevaluation #1: EKG showed no acute changes compared to previous, troponin was 0.00, CBC metabolic panel within normal limits, imaging showed no acute cardiopulmonary process, she was given the above care and her breathing did improve however she still had some left-sided chest tightness, to give additional 4 mg IV morphine and then likely discharge, symptoms have been going on for the last week discuss repeating troponin level but will hold at this time, patient also had previous cardiac workup which was unremarkable last week. Considerations for an MR cervical spine for further evaluation, she will call her primary care provider Dr. Hernández tomorrow set up a follow-up appointment and go over her Holter monitor. Reasons to return were given. Vital Signs Vital signs: Initial Vital Signs Temperature 97.3 F L 10/30/22 17:54 Temperature Source Temporal Artery Scan 10/30/22 17:54 Pulse Rate 79 10/30/22 17:54 Respiratory Rate 16 10/30/22 17:54 Blood Pressure 115/75 10/30/22 17:54 Blood Pressure Mean 88 07/19/23 17:54 Blood Pressure Position Sitting 10/30/22 17:54 Pulse Oximetry 97 10/30/22 17:54 Oxygen Delivery Method Room Air 10/30/22 17:54 Vital Signs Temperature 97.3 F L 10/30/22 17:54 Pulse Rate 79 10/30/22 17:54 Respiratory Rate 16 10/30/22 17:54 Blood Pressure 115/75 10/30/22 17:54 Pulse Oximetry 97 10/30/22 17:54 Oxygen Delivery Method Room Air 10/30/22 17:54 Temperature 97.3 F L 10/30/22 17:54 Pulse Rate 76 10/30/22 20:02 Respiratory Rate 16 10/30/22 17:54 Blood Pressure 124/72 10/30/22 20:02 Pulse Oximetry 96 10/30/22 20:02 Oxygen Delivery Method Room Air 10/30/22 17:54 Medical Decision Making Lab Data Labs: Lab Results 10/30/22 10/30/22 Range/Units 18:01 18:20 WBC 10.61 (4.50-11.00) K/uL RBC 4.09 (4.00-5.20) m/uL Hgb 12.4 (12.0-16.0) gm/dL Hct 37.2 (33.0-51.0) % MCV 91 (80-100) fL MCH 30 (26-34) pg MCHC 33 (32-36) gm/dL RDW Coeff of Jose Alberto 13.0 (11.5-15.5) % Plt Count 241 (140-440) K/uL Neut % (Auto) 70.7 (42.0-72.0) % Lymph % (Auto) 22.8 (20-44) % Emmet % (Auto) 5.3 (0.0-11.0) % Eos % (Auto) 0.6 (0.0-7.0) % Baso % (Auto) 0.1 (0.0-3.0) % Neut # (Auto) 7.51 H (1.7-7.0) K/uL Lymph # (Auto) 2.42 (0.90-2.90) K/uL Emmet # (Auto) 0.60 (0.00-0.90) K/UL Eos # (Auto) 0.06 (0.00-0.50) K/uL Baso # (Auto) 0.01 (0.00-0.30) K/uL Abs Immat Gran (auto) 0.05 (0.00-0.30) K/uL Imm/Tot Granulo (auto) 0.5 % D-Dimer Quant (PE/DVT) 0.40 (0.00-0.50) ug/ml Sodium 138 (135-149) mmol/L Potassium 3.1 L (3.6-5.1) mmol/L Chloride 107 (96-114) mmol/L Carbon Dioxide 24 (20-32) mmol/L BUN 14 (5-24) mg/dL Creatinine 1.0 (0.5-1.5) mg/dL Estimated Creat Clear 70.01 Estimated GFR 73 ml/min Glucose 119 H (60-115) mg/dL Calcium 8.3 L (8.4-10.6) mg/dL Total Bilirubin 0.2 (0.1-1.5) mg/dL AST 20 (12-35) U/L ALT 21 (4-35) U/L Alkaline Phosphatase 61 (40-150) U/L C-Reactive Protein 0.5 (0.5-1.0) mg/dL Total Protein 6.3 (6.0-8.3) g/dL Albumin 3.7 (3.3-5.0) g/dL Lipase 96 (23-300) U/L POC Troponin I 0.00 L (0.01-0.04) ng/ml Discharge Plan Discharge Clinical Impression: Shortness of breath, Arm pain, left, Atypical chest pain Patient Disposition: Home, Self-Care Condition: Improved Instructions: Chest Pain (ED), Arm Pain (ED), Shortness of Breath (ED) Additional Instructions: Patient to call her primary care provider Dr. Hernández tomorrow if set up a follow-up appointment, offered her steroid burst but she declined since patient has recently been tried on this, she will continue with Tylenol and or Motrin every 4-6 hours as needed for pain, discussion with primary care provider about obtaining a MR cervical spine for further evaluation, return precautions given. Prescriptions: No Action trazodone 300 mg tablet 300 mg PO QHS Qty: 90 1RF estradiol [Estrace] 0.01 % (0.1 mg/gram) cream 0.5 g vaginal 2XW Qty: 42.5 3RF Rx Instructions: Use nightly for 2 weeks, then twice weekly. May apply with finger. bdpnwqbpna-umzctbdujjyts-shwk 50-300-40 mg capsule 1 cap PO TID PRN (Reason: pain) Qty: 20 0RF albuterol sulfate 90 mcg/actuation HFA aerosol inhaler 2 puff inhalation Q4-6H PRN estradiol 0.1 mg/24 hr patch semiweekly 1 patch transdermal 2XW MDD surgical menopause Qty: 8 12RF Rx Instructions: apply 1 patch for 3 days alternating with 1 patch for 4 days each week for 3 wks per 4-wk cycle prednisone 20 mg tablet 10 - 40 mg PO QDAY Qty: 14 0RF Rx Instructions: 2 QD x 4 days, 1 QD x 4 days, 1/2 QD x 4 days oxycodone 5 mg tablet 5 mg PO Q8H PRN (Reason: pain) Qty: 20 0RF sertraline 100 mg tablet 100 mg PO DAILY Qty: 90 1RF fluticasone furoate-vilanterol 200-25 mcg/dose blister with device 1 inh inhalation DAILY Qty: 60 5RF omeprazole 20 mg capsule,delayed release(DR/EC) 20 mg PO QDAY Qty: 90 1RF albuterol sulfate 2.5 mg/0.5 mL solution for nebulization 5 mg inhalation QID PRN (Reason: shortness of breath or wheezing) Qty: 30 1RF (DME) nebulizers Misc See Rx Instructions .Route Qty: 1 0RF Rx Instructions: As directed Follow Up/Referrals: Danny Hernández MD [Primary Care Provider] - Stand Alone Forms: [facility] Info Instructions
[2022-10-30] MEDS: 0.9 % SODIUM CHLORIDE 1000 ml 1,000 ML IV (18:31)
[2022-10-30 18:33] LABS: Basophils Absolute Auto 0.01 K/uL (0.00-0.30); Basophils Percent Auto 0.1 % (0.0-3.0); Eosinophils Absolute Auto 0.06 K/uL (0.00-0.50); Eosinophils Percent Auto 0.6 % (0.0-7.0); Hematocrit 37.2 % (33.0-51.0); Hemoglobin* 12.4 gm/dL (12.0-16.0); Immature Granulocytes Abs Auto 0.05 K/uL (0.00-0.30); Immature Granulocytes Pct Auto 0.5 %; Lymphocytes Absolute Auto 2.42 K/uL (0.90-2.90); Lymphocytes Percent Auto 22.8 % (20-44); Mean Corpuscular HGB Conc 33 gm/dL (32-36); Mean Corpuscular Hemoglobin 30 pg (26-34); Mean Corpuscular Volume 91 fL (80-100); Monocytes Percent Auto 5.3 % (0.0-11.0); Neutrophils Absolute Auto 7.51 K/uL (1.7-7.0); Neutrophils Percent Auto 70.7 % (42.0-72.0); Platelet Count* 241 K/uL (140-440); Red Blood Count 4.09 m/uL (4.00-5.20); White Blood Count* 10.61 K/uL (4.50-11.00)
[2022-10-30 18:35] LABS: Slide Review Reflex No
[2022-10-30] MEDS: KETOROLAC 15 MG/ML inj IVP (18:35)
[2022-10-30] MEDS: ALBUTEROL SULFATE 2.5 MG/3 ML VIAL.NEB NEB (18:37)
[2022-10-30 18:47] LABS: Albumin* 3.7 g/dL (3.3-5.0); Chloride* 107 mmol/L (96-114); Sodium* 138 mmol/L (135-149)
[2022-10-30 18:48] LABS: Potassium* 3.1 mmol/L (3.6-5.1)
[2022-10-30 18:50] LABS: Aspartate Amino Transferase* 20 U/L (12-35); Bilirubin Total* 0.2 mg/dL (0.1-1.5); Carbon Dioxide* 24 mmol/L (20-32); Est. Creatinine Clearance* 70.01; Estimated Glomerular Filt Rate 73 ml/min
[2022-10-30 18:51] LABS: Alanine Aminotransferase* 21 U/L (4-35); Alkaline Phosphatase* 61 U/L (40-150); Blood Urea Nitrogen* 14 mg/dL (5-24); Calcium* 8.3 mg/dL (8.4-10.6); Glucose* 119 mg/dL (60-115); Lipase* 96 U/L (23-300); Total Protein* 6.3 g/dL (6.0-8.3)
[2022-10-30 18:53] LABS: C Reactive Protein* 0.5 mg/dL (0.5-1.0)
--- NOTE | 2022-10-30 19:06 | CRLHL7_ITS ---
For Patients: As a result of the Century Cures Act, medical imaging exams and procedure reports are released immediately into your electronic medical record. You may view this report before your referring provider. If you have questions, please contact your health care provider. INDICATION: Tightness in chest, dizzy wearing holter monitor TECHNIQUE: Chest radiograph 2 views COMPARISON: 04/26/2021, 04/13/2013 FINDINGS: Mediastinum: The mediastinum is normal in appearance. The heart silhouette is normal in size and morphology. Lung: Both lungs are unremarkable in appearance. No sign of pleural effusion seen. No pneumothorax is identified. Bone and Soft tissue: Unremarkable for age. A left chest wall electronic monitoring device is noted. IMPRESSION: 1. No acute cardiopulmonary disease is seen. Dictated by: Abhishek Horner MD @ 10/30/2022 20:03:56 (Electronically Signed)
[2022-10-30] MEDS: dexAMETHasone 4 MG/ML VIAL 10 MG IV (19:25)
[2022-10-30] MEDS: MORPHINE 4 MG/ML INJ IVP (20:18)
--- NOTE | 2022-10-30 20:21 | PC.NURSE ---
Pt lay in bed calmly, rates pain 9/10 in neck and back. Son at BS. States SO is able to oick her up when D/C.
== END 2022-10-30 20:25 | disposition home or self-care (01) ==
PROVIDERS: Emergency Provider Student in an Organized Health Care Education/Training Program; PCP Family Medicine
DX: R07.9 Chest pain, unspecified (principal); R06.02 Shortness of breath; M79.602 Pain in left arm
CPT/HCPCS: 36415; 71046; 80053; 83690; 84484; 85025; 85379; 86140; 93005; 94640; 96374; 96375; 99283; 99284; J1100; J1885; J2270; J7030

== ENCOUNTER 2022-11-13 10:07 | Outpatient (CLI) | payer BC, SELFPAY ==
--- NOTE | 2022-11-13 10:15 | CRLHL7_ITS ---
For Patients: As a result of the Century Cures Act, medical imaging exams and procedure reports are released immediately into your electronic medical record. You may view this report before your referring provider. If you have questions, please contact your health care provider. Indication: Neck pain. Paresthesia. Technique: MRI of the cervical spine was performed without the use of intravenous contrast. Comparison: CT cervical spine 10/22/2022. Findings: The vertebral body heights appear maintained without evidence of fracture. No discrete T1 hypointense marrow infiltrating process. Mild disc desiccation, with mild height loss at C5-6. No abnormal cord signal. C2-3: No spinal canal or neural foraminal narrowing. C3-4: No spinal canal or neural foraminal narrowing. C4-5: No spinal canal or neural foraminal narrowing. C5-6: Disc bulge slightly eccentric toward the right resulting in moderate spinal canal narrowing. Moderately severe right and mild left neural foraminal narrowing. C6-7: Shallow disc bulge with minimal spinal canal narrowing. Mild left neural foraminal narrowing. Right neural foramina appears patent. C7-T1: No spinal canal or neural foraminal narrowing. Impression: 1. At C5-6, disc bulge with moderate spinal canal, moderately severe right and mild left neural foraminal stenosis. Potential impingement of the right C6 nerve. 2. At C6-7, mild left neural foraminal narrowing. 3. No abnormal cord signal. Dictated by Neal Hernandez MD @ 11/13/2022 1:41:45 PM (Electronically Signed)
== END 2022-11-13 10:08 | disposition home or self-care (01) ==
LOC: MRI 10:08
PROVIDERS: PCP Family Medicine; Visit Provider Family Medicine
DX: M54.2 Cervicalgia (principal); M50.222 Other cervical disc displacement at C5-C6 level; M50.223 Other cervical disc displacement at C6-C7 level; R20.2 Paresthesia of skin; M79.602 Pain in left arm
CPT/HCPCS: 72141

== ENCOUNTER 2022-11-29 17:14 | Emergency (ER) | payer BC, SELFPAY ==
[2022-11-29 17:43] VITALS: BP 121/80; PULSE 74; RESP 18; TEMP 36.2; O2SAT 98; BMI 28.2
--- NOTE | 2022-11-29 19:00 | ED.GENADULT ---
HPI - General Adult General Chief complaint: Extremity Pain/Injury, Lower Stated complaint: R knee locked, fell, heard pop in hip Time Seen by Provider: 11/29/22 18:47 History of Present Illness HPI narrative: Patient reports that her right knee locked up at about 4 PM, this has happened before , however she then fell injuring her right hip. She is ambulatory to triage. 42-year-old presenting to the emergency department complaint of right knee and hip area pain. Primarily right hip really. Apparently ambulating with right knee locking up and then fell onto her right hip. She is accompanied by her pleasant and precocious son somewhere between the age of 10-12? Apparently did not injure her head neck or back. Indicates pain generally over the right hip down the leg but not passing the knee. Is not describing posterior symptoms On recurrent questioning notes history of right greater trochanteric bursitis. Was seen about 4 weeks ago with for cervical radiculopathy symptoms and given oxycodone 20 tabs by primary care provider. She is now out. Related Data Home Medications Medication Instructions Recorded Confirmed albuterol sulfate 90 mcg/actuation 2 puff inhalation Q4-6H PRN 10/12/21 11/01/22 aerosol inhaler Previous Rx's Medication Instructions Recorded estradiol 0.01% (0.1 mg/gram) 0.5 g vaginal 2XW #42.5 grams 06/10/22 vaginal cream (Estrace) estradiol 0.1 mg/24 hr semiweekly 1 patch transdermal 2XW #8 ea 07/22/22 transdermal patch jvsqalkijv-sjqlneajnnsrn-khujchqs 1 cap PO TID PRN pain #20 caps 07/28/22 50 mg-300 mg-40 mg capsule fluticasone furoate 200 1 inh inhalation DAILY #60 ea 08/06/22 mcg-vilanterol 25 mcg/dose inhalation powder omeprazole 20 mg capsule,delayed 20 mg PO QDAY #90 caps 10/28/22 release albuterol sulfate 2.5 mg/0.5 mL 5 mg inhalation QID PRN shortness 11/01/22 solution for nebulization of breath or wheezing #30 ea nebulizers #1 ea 11/01/22 oxycodone 5 mg tablet 5 mg PO Q8H PRN pain #20 tabs 11/01/22 prednisone 20 mg tablet 10 - 40 mg (0.5 - 2 x 20 mg) PO 11/01/22 QDAY #14 tabs albuterol sulfate 2.5 mg/3 mL 2.5 mg (3 mL) inhalation Q6H PRN 11/04/22 (0.083 %) solution for nebulization shortness of breath or wheezing #180 mL lorazepam 1 mg tablet 1 mg PO ONCE #2 tabs 11/05/22 sertraline 100 mg tablet 100 mg PO DAILY #90 tabs 11/08/22 trazodone 300 mg tablet 300 mg PO QHS #90 tabs 12/03/22 Allergies Allergy/AdvReac Type Severity Reaction Status Date / Time hydrocodone Allergy Intermediate itchy Verified 11/01/22 10:01 Review of Systems Status of ROS: Reports: 6 or more systems reviewed and unremarkable except as noted in History and [facility] Mild persistent asthma ?J45.30 - Mild persistent asthma, uncomplicated (ICD-10) Migraine ?G43.909 - Migraine, unspecified, not intractable, without status migrainosus (ICD-10) Endometriosis ?N80.9 - Endometriosis, unspecified (ICD-10) Restless legs syndrome (03/25/12) ?G25.81 - Restless legs syndrome (ICD-10) Moderate episode of recurrent major depressive disorder (02/23/07) ?F33.1 - Major depressive disorder, recurrent, moderate (ICD-10) Insomnia (01/07/14) ?G47.00 - Insomnia, unspecified (ICD-10) Generalized anxiety disorder ?F41.1 - Generalized anxiety disorder (ICD-10) Gastroesophageal reflux disease (06/16/08) ?K21.9 - Gastro-esophageal reflux disease without esophagitis (ICD-10) Essential tremor (08/16/07) ?G25.0 - Essential tremor (ICD-10) Chronic abdominal pain ?R10.9 - Unspecified abdominal pain (ICD-10) ?G89.29 - Other chronic pain (ICD-10) Surgical History Status post laparoscopic hysterectomy ?Z90.710 - Acquired absence of both cervix and uterus (ICD-10) History of tubal ligation ?Z98.51 - Tubal ligation status (ICD-10) History of laparoscopy ?Z98.890 - Other specified postprocedural states (ICD-10) Family History Father High blood pressure Diabetes Chronic mental illness Mother High blood pressure Chronic mental illness Other ASCVD (arteriosclerotic cardiovascular disease) Social History Narrative: 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 She smokes daily. She drinks alcohol on occasion. She doesn't use recreational drugs. Smoking Status: Current every day smoker What tobacco products do you use: cigarettes Smoking packs per day: 0.5 Smoking cigarettes per day: 10.0 Years smoked: 28 Smoking pack-years: 14.00 Do you use any of these nicotine containing products: None Second hand tobacco smoke exposure: No How often do you have a drink containing alcohol: monthly or less Alcohol type: hard liquor How many standard drinks containing alcohol do you have on a typical day: 3 or 4 How often do you have six or more drinks on one occasion: Never AUDIT-C Alcohol total score: 2 Non-prescribed substance use: denies use Caffeine: No Little interest or pleasure in doing things: several days Feeling down, depressed, or hopeless: more than half the days Are you using contraception or practicing any form of control: No service: No Exam Narrative: Exam Narrative: I see her limping favoring the right, an antalgic gait, during triage. Anxious. Evaluating in the exam room, seems generally uncomfortable. Brow was furrowed in apparent discomfort. She is semi recumbent in the bed rotated little bit to the left seemingly favoring the right side. Transition is done with moderate difficulty. There is no erythema or other bruising about the right side or hip area. No pain to palpation of midline back. There is however rather regional somewhat hypesthetic response to palpation over the entire right hip buttock SI joint upper femur outer aspect. Well-perfused peripherally moving all extremities without difficulty though elevation of the left leg seems to elicit a little discomfort in the right side. Has strength I think it the right side but demonstrates a good deal of pain. No apparent knee inflammation or pain at this time. Const: Vital Signs, click to edit/add: Vital Signs - 24 hr 11/29/22 17:43 Temperature 97.2 F L Pulse Rate [Pulse Oximeter] 74 Respiratory Rate 18 Blood Pressure [Ri ght Upper Arm] 121/80 Pulse Oximetry 98 Oxygen Delivery Me thod Room Air Documenting provider has reviewed patient's vital signs: yes Course Vital Signs Vital signs: Initial Vital Signs Temperature 97.2 F L 11/29/22 17:43 Temperature Source Temporal Artery Scan 11/29/22 17:43 Pulse Rate 74 11/29/22 17:43 Respiratory Rate 18 11/29/22 17:43 Blood Pressure 121/80 11/29/22 17:43 Blood Pressure Mean 93 11/29/22 17:43 Pulse Oximetry 98 11/29/22 17:43 Oxygen Delivery Method Room Air 11/29/22 17:43 Vital Signs Temperature 97.2 F L 11/29/22 17:43 Pulse Rate 74 11/29/22 17:43 Respiratory Rate 18 11/29/22 17:43 Blood Pressure 121/80 11/29/22 17:43 Pulse Oximetry 98 11/29/22 17:43 Oxygen Delivery Method Room Air 11/29/22 17:43 Temperature 97.2 F L 11/29/22 17:43 Pulse Rate 74 11/29/22 17:43 Respiratory Rate 18 11/29/22 17:43 Blood Pressure 121/80 11/29/22 17:43 Pulse Oximetry 98 11/29/22 17:43 Oxygen Delivery Method Room Air 11/29/22 17:43 Medical Decision Making MDM Narrative Medical decision making narrative: History is complicated by some degree of chronic pain and anxiety. Does see primary care provider not infrequently. I doubt there is a fracture issue here. I think it's amplification of underlying propensity. I do think there is real pain. Regional pain likely an exacerbation of this right greater trochanteric bursitis. Perhaps there was some subluxation but now would appear to be in joint. Will x-ray hip and pelvis. Discuss also pain management. She would appreciate something for pain. Allergy apparently to hydrocodone and NSAIDs not fully effective. Review of x-ray by my read looks to be without acute bony abnormality. Radiology over-read as below. INDICATION: Right hip pain, greater trochanter. COMPARISON: 08/26/2022. FINDINGS/IMPRESSION: Pelvis, one view and right hip, two views. No fracture, dislocation, bony erosion, or other acute osseous finding. The right hip center edge angle is in the lower range of normal at approximately 22 degrees. No joint space narrowing or evidence of hip arthrosis. Included soft tissues are unremarkable. Dictated by Jf Montgomery MD @ 11/29/2022 8:12:15 PM Somewhat improved with treatment as above. If hip discomfort continues will likely need an MRI. See patient discharge plan Medical Records Medical records reviewed: Yes I reviewed the patient's medical records Discharge Plan Discharge Clinical Impression: Acute hip pain, Bursitis, trochanteric Patient Disposition: Home, Self-Care Condition: Improved Additional Instructions: I would ice this entire area but particularly the outer aspect of the hip as discussed a few times daily over the next few days. Please follow-up with your doctor to discuss next steps in management whether that is medication or imaging or PT. Percocet from [facility]. Activity Level: No Restrictions Discharge Diet: Regular Prescriptions: No Action estradiol [Estrace] 0.01 % (0.1 mg/gram) cream 0.5 g vaginal 2XW Qty: 42.5 3RF Rx Instructions: Use nightly for 2 weeks, then twice weekly. May apply with finger. gbbhywtqsu-pbjrysgfukzet-vxjc 50-300-40 mg capsule 1 cap PO TID PRN (Reason: pain) Qty: 20 0RF albuterol sulfate 90 mcg/actuation HFA aerosol inhaler 2 puff inhalation Q4-6H PRN estradiol 0.1 mg/24 hr patch semiweekly 1 patch transdermal 2XW MDD surgical menopause Qty: 8 12RF Rx Instructions: apply 1 patch for 3 days alternating with 1 patch for 4 days each week for 3 wks per 4-wk cycle prednisone 20 mg tablet 10 - 40 mg PO QDAY Qty: 14 0RF Rx Instructions: 2 QD x 4 days, 1 QD x 4 days, 1/2 QD x 4 days oxycodone 5 mg tablet 5 mg PO Q8H PRN (Reason: pain) Qty: 20 0RF fluticasone furoate-vilanterol 200-25 mcg/dose blister with device 1 inh inhalation DAILY Qty: 60 5RF omeprazole 20 mg capsule,delayed release(DR/EC) 20 mg PO QDAY Qty: 90 1RF albuterol sulfate 2.5 mg/0.5 mL solution for nebulization 5 mg inhalation QID PRN (Reason: shortness of breath or wheezing) Qty: 30 1RF (DME) nebulizers Misc See Rx Instructions .Route Qty: 1 0RF Rx Instructions: As directed albuterol sulfate 2.5 mg /3 mL (0.083 %) solution for nebulization 2.5 mg inhalation Q6H PRN (Reason: shortness of breath or wheezing) Qty: 180 1RF lorazepam 1 mg tablet 1 mg PO ONCE Qty: 2 0RF Rx Instructions: Take 2 hours before scan - ok to repeat if needed sertraline 100 mg tablet 100 mg PO DAILY Qty: 90 1RF trazodone 300 mg tablet 300 mg PO QHS Qty: 90 1RF Follow Up/Referrals: Danny Hernández MD [Primary Care Provider] - Stand Alone Forms: [employer] Info Instructions
--- NOTE | 2022-11-29 19:14 | CRLHL7_ITS ---
For Patients: As a result of the Cures Act, medical imaging exams and procedure reports are released immediately into your electronic medical record. You may view this report before your referring provider. If you have questions, please contact your health care provider. INDICATION: Right hip pain, greater trochanter. COMPARISON: 08/26/2022. FINDINGS/IMPRESSION: Pelvis, one view and right hip, two views. No fracture, dislocation, bony erosion, or other acute osseous finding. The right hip center edge angle is in the lower range of normal at approximately 22 degrees. No joint space narrowing or evidence of hip arthrosis. Included soft tissues are unremarkable. Dictated by Jf Montgomery MD @ 11/29/2022 8:12:15 PM Dictated by: Jf Montgomery MD @ 11/29/2022 20:12:44 (Electronically Signed)
[2022-11-29] MEDS: OxyCODONE/APAP 5-325 TABLET 2 TAB PO (19:24)
== END 2022-11-29 21:05 | disposition home or self-care (01) ==
PROVIDERS: Emergency Provider Family Medicine; PCP Family Medicine
DX: M70.61 Trochanteric bursitis, right hip (principal); M25.551 Pain in right hip
CPT/HCPCS: 73502; 99284; A9270

== ENCOUNTER 2022-12-02 15:08 | Outpatient (CLI) | payer BC, SELFPAY ==
--- NOTE | 2022-12-02 15:20 | CRLHL7_ITS ---
For Patients: As a result of the Century Cures Act, medical imaging exams and procedure reports are released immediately into your electronic medical record. You may view this report before your referring provider. If you have questions, please contact your health care provider. BILATERAL SCREENING MAMMOGRAM WITH COMPUTER-AIDED DETECTION TECHNIQUE: CC and MLO views were obtained. These mammographic images have been obtained using full-field digital technique. These mammographic images were interpreted with the benefit of computer-aided detection. COMPARISON FILM: Baseline. FINDINGS: There are scattered areas of fibroglandular density IMPRESSION: There is no radiographic evidence for malignancy. ASSESSMENT: BI-RADS Category 1: Negative RECOMMENDATION: Routine screening mammogram in 1 year. A lay language report of this examination will be provided to the patient. Riaz Ojeda M.D. Diagnostic/Nuclear Medicine Radiologist [email or web address] LONI/stuartb R: 12/04/2022 Transcribed: 10:00 a.m. VLADIMIR/Dictated by: Riaz Ojeda MD @ 12/04/2022 10:11:00 AM (Electronically Signed)
== END 2022-12-02 15:09 | disposition home or self-care (01) ==
PROVIDERS: PCP Family Medicine; Visit Provider Family Medicine
DX: Z12.31 Encounter for screening mammogram for malignant neoplasm of breast (principal)
CPT/HCPCS: 77067

== ENCOUNTER 2023-01-14 20:01 | Emergency (ER) | payer BC, SELFPAY ==
[2023-01-14 20:08] VITALS: BP 114/77; PULSE 77; RESP 14; TEMP 36.3; O2SAT 96; BMI 27.0
--- NOTE | 2023-01-14 20:56 | ED_ITS ---
HPI - Neck Pain/Injury General Chief Complaint: Neck Injury/Pain Stated Complaint: Neck and shoulder pain, R side Time Seen by Provider: 01/14/23 20:49 History of Present Illness HPI Narrative: This 43-year-old female comes in reporting right-sided neck pain that began just prior to arrival. She states that she was lifting the cover of a [employer] when she felt a jolt or pop in the right side of her neck. She has now developed pain and stiffness. There was no fall or significant mechanism of injury. Related Data Home Medications Medication Instructions Recorded Confirmed albuterol sulfate 90 mcg/actuation 2 puff inhalation Q4-6H PRN 10/12/21 12/18/22 aerosol inhaler nebulizer and compressor #1 ea 12/13/22 12/13/22 ([employer] SL device) Previous Rx's Medication Instructions Recorded estradiol 0.01% (0.1 mg/gram) 0.5 g vaginal 2XW #42.5 grams 06/10/22 vaginal cream (Estrace) bnajiqclmo-tmfwqkpjekwgg-xggzdpbj 1 cap PO TID PRN pain #20 caps 07/28/22 50 mg-300 mg-40 mg capsule omeprazole 20 mg capsule,delayed 20 mg PO QDAY #90 caps 10/28/22 release albuterol sulfate 2.5 mg/0.5 mL 5 mg inhalation QID PRN shortness 11/01/22 solution for nebulization of breath or wheezing #30 ea nebulizers #1 ea 11/01/22 sertraline 100 mg tablet 100 mg PO DAILY #90 tabs 11/08/22 trazodone 300 mg tablet 300 mg PO QHS #90 tabs 12/03/22 naproxen 500 mg tablet 500 mg PO BID #60 tabs 12/18/22 oxycodone 5 mg tablet 5 mg PO Q8H PRN pain #30 tabs 01/07/23 pregabalin 100 mg capsule 100 mg PO BID #60 caps 01/07/23 fluticasone furoate 200 1 inh inhalation DAILY #60 ea 01/13/23 mcg-vilanterol 25 mcg/dose inhalation powder Allergies Allergy/AdvReac Type Severity Reaction Status Date / Time hydrocodone Allergy Intermediate itchy Verified 12/18/22 07:49 Review of Systems Status of ROS: Reports: 10 or more systems reviewed and unremarkable except as noted in History and below Narrative: Constitutional: No fevers, no weight gain or loss. Eyes: No discharge. No vision changes. HENT: No congestion, no sore throat, no ear pain. Cardiovascular: No chest pain, no palpitations. Respiratory: No shortness of breath, no wheezes, no cough. Gastrointestinal: No abdominal pain, no vomiting, no diarrhea. Genitourinary: No dysuria, no hematuria. Musculoskeletal: Right-sided neck pain with decreased range of motion. Skin: No rashes, no pruritis. Neurological: No dizziness, weakness, sensory change, speech change. Endo/Heme/Allergies: No bruising or bleeding. No polydipsia. Pysch: no suicidality, no anxiety, no insomnia. All other systems reviewed and are negative. [facility] Medical History Mild persistent asthma ?J45.30 - Mild persistent asthma, uncomplicated (ICD-10) Migraine ?G43.909 - Migraine, unspecified, not intractable, without status migrainosus (ICD-10) Endometriosis ?N80.9 - Endometriosis, unspecified (ICD-10) Restless legs syndrome (03/25/12) ?G25.81 - Restless legs syndrome (ICD-10) Moderate episode of recurrent major depressive disorder (02/23/07) ?F33.1 - Major depressive disorder, recurrent, moderate (ICD-10) Insomnia (01/07/14) ?G47.00 - Insomnia, unspecified (ICD-10) Generalized anxiety disorder ?F41.1 - Generalized anxiety disorder (ICD-10) Gastroesophageal reflux disease (06/16/08) ?K21.9 - Gastro-esophageal reflux disease without esophagitis (ICD-10) Essential tremor (08/16/07) ?G25.0 - Essential tremor (ICD-10) Chronic abdominal pain ?R10.9 - Unspecified abdominal pain (ICD-10) ?G89.29 - Other chronic pain (ICD-10) Surgical History Status post laparoscopic hysterectomy ?Z90.710 - Acquired absence of both cervix and uterus (ICD-10) History of tubal ligation ?Z98.51 - Tubal ligation status (ICD-10) History of laparoscopy ?Z98.890 - Other specified postprocedural states (ICD-10) Family History Father High blood pressure Diabetes Chronic mental illness Mother High blood pressure Chronic mental illness Other ASCVD (arteriosclerotic cardiovascular disease) Social History Narrative: 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 She smokes daily. She drinks alcohol on occasion. She doesn't use recreational drugs. Smoking Status: Current every day smoker What tobacco products do you use: cigarettes Smoking packs per day: 0.5 Smoking cigarettes per day: 10.0 Years smoked: 28 Smoking pack-years: 14.00 Do you use any of these nicotine containing products: None Second hand tobacco smoke exposure: No How often do you have a drink containing alcohol: monthly or less Alcohol type: hard liquor How many standard drinks containing alcohol do you have on a typical day: 3 or 4 How often do you have six or more drinks on one occasion: Never AUDIT-C Alcohol total score: 2 Non-prescribed substance use: denies use Caffeine: No Little interest or pleasure in doing things: several days Feeling down, depressed, or hopeless: more than half the days Are you using contraception or practicing any form of control: No service: No Exam Narrative: Exam Narrative: Constitutional: Well-developed, well-nourished, no acute distress. HEENT: Normocephalic, atraumatic. Neck: Decreased range of motion. No midline tenderness when palpating along the neck in the spine. Pain is located along the right side of the neck extending into the shoulder. Heart: Intact distal pulses. Lungs: No chest discomfort. No wheezes, rhonchi, or rales. Abdomen: Nontender. Back: Normal range of motion. Extremities: Normal range of motion. No injury. Skin: Intact. No rash. Warm. No erythema or pallor. Neurologic: No altered sensation. No weakness. Alert and oriented. Psychiatric: No suicidality. No anxiety or depression. No insomnia. Nursing notes and vitals signs are reviewed. Const: Vital Signs, click to edit/add: Vital Signs - 24 hr 01/14/23 20:08 Temperature 97.4 F L Pulse Rate [Pulse Oximeter] 77 Respiratory Rate 14 Blood Pressure [Le ft Upper Arm] 114/77 Pulse Oximetry 96 Oxygen Delivery Me thod Room Air Course Vital Signs Vital signs: Initial Vital Signs Temperature 97.4 F L 01/14/23 20:08 Temperature Source Temporal Artery Scan 01/14/23 20:08 Pulse Rate 77 01/14/23 20:08 Pulse Rhythm Regular 01/14/23 20:08 Respiratory Rate 14 01/14/23 20:08 Blood Pressure 114/77 01/14/23 20:08 Blood Pressure Mean 89 01/14/23 20:08 Blood Pressure Position Sitting 01/14/23 20:08 Pulse Oximetry 96 01/14/23 20:08 Oxygen Delivery Method Room Air 01/14/23 20:08 Vital Signs Temperature 97.4 F L 01/14/23 20:08 Pulse Rate 77 01/14/23 20:08 Respiratory Rate 14 01/14/23 20:08 Blood Pressure 114/77 01/14/23 20:08 Pulse Oximetry 96 01/14/23 20:08 Oxygen Delivery Method Room Air 01/14/23 20:08 Temperature 97.4 F L 01/14/23 20:08 Pulse Rate 77 01/14/23 20:08 Respiratory Rate 14 01/14/23 20:08 Blood Pressure 114/77 01/14/23 20:08 Pulse Oximetry 96 01/14/23 20:08 Oxygen Delivery Method Room Air 01/14/23 20:08 MDM - Neck Pain/Injury MDM Narrative Medical decision making narrative: This patient has some neck pain in her right-sided musculature. There was no injury event or mechanism that requires imaging at this time. The pain does not radiate into her arm. The patient received prescriptions for Toradol and Flexeril. I explained that it is helpful to begin on range of motion and increase activity as tolerated. Discharge Plan Discharge Clinical Impression: Cervical myofascial strain Patient Disposition: Home, Self-Care Condition: Stable Additional Instructions: take medication as needed and indicated. Increased range of motion and activity as tolerated. Follow up with MD return if worsening. Prescriptions: No Action estradiol [Estrace] 0.01 % (0.1 mg/gram) cream 0.5 g vaginal 2XW Qty: 42.5 3RF Rx Instructions: Use nightly for 2 weeks, then twice weekly. May apply with finger. xtdljlqbdx-jcdeukylncdtf-bkzn 50-300-40 mg capsule 1 cap PO TID PRN (Reason: pain) Qty: 20 0RF (DME) nebulizer and compressor [[employer]] Device See Rx Instructions .ROUTE DIRECTED Qty: 1 Rx Instructions: As directed naproxen 500 mg tablet 500 mg PO BID Qty: 60 1RF albuterol sulfate 90 mcg/actuation HFA aerosol inhaler 2 puff inhalation Q4-6H PRN omeprazole 20 mg capsule,delayed release(DR/EC) 20 mg PO QDAY Qty: 90 1RF albuterol sulfate 2.5 mg/0.5 mL solution for nebulization 5 mg inhalation QID PRN (Reason: shortness of breath or wheezing) Qty: 30 1RF (DME) nebulizers Misc See Rx Instructions .Route Qty: 1 0RF Rx Instructions: As directed sertraline 100 mg tablet 100 mg PO DAILY Qty: 90 1RF trazodone 300 mg tablet 300 mg PO QHS Qty: 90 1RF pregabalin 100 mg capsule 100 mg PO BID Qty: 60 1RF oxycodone 5 mg tablet 5 mg PO Q8H PRN (Reason: pain) Qty: 30 0RF fluticasone furoate-vilanterol 200-25 mcg/dose blister with device 1 inh inhalation DAILY Qty: 60 2RF Follow Up/Referrals: Danny Hernández MD [Primary Care Provider] - Stand Alone Forms: [employer] Info Instructions
== END 2023-01-14 21:30 | disposition home or self-care (01) ==
LOC: ED 21:06
PROVIDERS: Emergency Provider Emergency Medicine Emergency Medical Services; PCP Family Medicine
DX: S16.1XXA Strain of muscle, fascia and tendon at neck level, initial encounter (principal)
CPT/HCPCS: 99283; 99284

== ENCOUNTER 2023-01-23 22:56 | Emergency (ER) | payer BC, SELFPAY ==
[2023-01-23 23:05] VITALS: BP 123/78; PULSE 90; RESP 18; TEMP 36.4; O2SAT 97
[2023-01-24 01:40] VITALS: BP 135/62; PULSE 80; RESP 18; O2SAT 98
--- NOTE | 2023-01-24 02:48 | ED_ITS ---
HPI - General Adult General Chief complaint: Back Injury/Pain Stated complaint: Severe Back Pain Time Seen by Provider: 01/24/23 00:10 Source: patient Mode of arrival: ambulatory Limitations: no limitations History of Present Illness HPI narrative: 43-year-old female with her 18th emergency department visit in the past year presents with worsening lower cervical/upper back area pain that radiates in the right shoulder and right upper back area. This is an ongoing problem and she has known cervical radiculopathy. She had injections performed. It sounds like these were epidural steroid injections, 1 in November, 1 about 2 weeks ago and then 1 5 days ago. The 1 5 days ago seem to increase her pain. Her pain is in the same location and quality just worse overall than her typical pain. There is no motor weakness in the hand, no new trauma or injury. She is not running any fevers. No difficulty moving the neck. She has been using Tylenol and ibuprofen as was recommended by her provider without any relief. She says that the pain is too bothersome to sleep and presents to the emergency department. Unfortunately, we were quite busy and she did have a significant weight prior to being seen. No new neurological changes. She does present with her middle school appearing child who is sleeping in the bed in the exam room while she sits in the chair for her interview. She states that her past medical history is notable for GERD, anxiety and depression. As well as asthma. Her medications are reviewed and listed as accurate per her report. ROS is negative for other generalized, skin, musculoskeletal or neurological changes. Related Data Home Medications Medication Instructions Recorded Confirmed albuterol sulfate 90 mcg/actuation 2 puff inhalation Q4-6H PRN 10/12/21 12/18/22 aerosol inhaler nebulizer and compressor #1 ea 12/13/22 12/13/22 (InnoSpire Essence device) Previous Rx's Medication Instructions Recorded estradiol 0.01% (0.1 mg/gram) 0.5 g vaginal 2XW #42.5 grams 06/10/22 vaginal cream (Estrace) [id number]-[id number]-[id number] 1 cap PO TID PRN pain #20 caps 07/28/22 50 mg-300 mg-40 mg capsule omeprazole 20 mg capsule,delayed 20 mg PO QDAY #90 caps 10/28/22 release albuterol sulfate 2.5 mg/0.5 mL 5 mg inhalation QID PRN shortness 11/01/22 solution for nebulization of breath or wheezing #30 ea nebulizers #1 ea 11/01/22 sertraline 100 mg tablet 100 mg PO DAILY #90 tabs 11/08/22 trazodone 300 mg tablet 300 mg PO QHS #90 tabs 12/03/22 naproxen 500 mg tablet 500 mg PO BID #60 tabs 12/18/22 pregabalin 100 mg capsule 100 mg PO BID #60 caps 01/07/23 fluticasone furoate 200 1 inh inhalation DAILY #60 ea 01/13/23 mcg-vilanterol 25 mcg/dose inhalation powder oxycodone 5 mg tablet 5 mg PO Q8H PRN pain #20 tabs 01/23/23 Allergies Allergy/AdvReac Type Severity Reaction Status Date / Time hydrocodone Allergy Intermediate itchy Verified 12/18/22 07:49 PFSH PFS Medical History Mild persistent asthma ?J45.30 - Mild persistent asthma, uncomplicated (ICD-10) Migraine ?G43.909 - Migraine, unspecified, not intractable, without status migrainosus (ICD-10) Endometriosis ?N80.9 - Endometriosis, unspecified (ICD-10) Restless legs syndrome (03/25/12) ?G25.81 - Restless legs syndrome (ICD-10) Moderate episode of recurrent major depressive disorder (02/23/07) ?F33.1 - Major depressive disorder, recurrent, moderate (ICD-10) Insomnia (01/07/14) ?G47.00 - Insomnia, unspecified (ICD-10) Generalized anxiety disorder ?F41.1 - Generalized anxiety disorder (ICD-10) Gastroesophageal reflux disease (06/16/08) ?K21.9 - Gastro-esophageal reflux disease without esophagitis (ICD-10) Essential tremor (08/16/07) ?G25.0 - Essential tremor (ICD-10) Chronic abdominal pain ?R10.9 - Unspecified abdominal pain (ICD-10) ?G89.29 - Other chronic pain (ICD-10) Surgical History Status post laparoscopic hysterectomy ?Z90.710 - Acquired absence of both cervix and uterus (ICD-10) History of tubal ligation ?Z98.51 - Tubal ligation status (ICD-10) History of laparoscopy ?Z98.890 - Other specified postprocedural states (ICD-10) Family History Father High blood pressure Diabetes Chronic mental illness Mother High blood pressure Chronic mental illness Other ASCVD (arteriosclerotic cardiovascular disease) Social History Narrative: 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 She smokes daily. She drinks alcohol on occasion. She doesn't use recreational drugs. Smoking Status: Current every day smoker What tobacco products do you use: cigarettes Smoking packs per day: 0.5 Smoking cigarettes per day: 10.0 Years smoked: 28 Smoking pack-years: 14.00 Do you use any of these nicotine containing products: None Second hand tobacco smoke exposure: No How often do you have a drink containing alcohol: monthly or less Alcohol type: hard liquor How many standard drinks containing alcohol do you have on a typical day: 3 or 4 How often do you have six or more drinks on one occasion: Never AUDIT-C Alcohol total score: 2 Non-prescribed substance use: denies use Caffeine: No Little interest or pleasure in doing things: several days Feeling down, depressed, or hopeless: more than half the days Are you using contraception or practicing any form of control: No service: No Exam Const: Vital Signs, click to edit/add: Vital Signs - 24 hr 01/23/23 23:05 01/24/23 01:40 Temperature 97.5 F L Pulse Rate [Left F emoral] 90 80 Respiratory Rate 18 18 Blood Pressure [Ri ght Upper Arm] 123/78 135/62 Pulse Oximetry 97 98 Oxygen Delivery Me thod Room Air Room Air Documenting provider has reviewed patient's vital signs: yes Common normals: no apparent distress General appearance: cooperative HENMT: Common normals: normocephalic and head/scalp atraumatic Head and scalp: normocephalic and atraumatic Mouth: oral and palatal mucosa normal Throat: posterior oropharynx normal Eye: Common normals: conjunctivae normal General eye: normal appearance of both eyes Conjunctiva: conjunctiva(e) normal Neck & C-Spine: Common normals: full ROM Other: No point bony tenderness. Does have tenderness to palpation around the C6-C8 areas of the paraspinal muscles and lateral processes. No signs of significant deformity, redness or complications around an injection site. Injection site is not visible. No bruising, no other rash. Resp: Common normals: normal respiratory effort Effort & inspection: able to speak in complete sentences Extremity: Common normals: normal to inspection Neuro: Other: Normal strength in both upper extremities, proximally and distally. No deficits in hands. Psych: Common normals: thought process normal Attitude: calm Activity/motor behavior: appropriate eye contact Thought process: normal thought process Insight: fair Judgement: fair Skin: Common normals: no rashes or lesions noted General skin exam: no rashes or lesions noted Course Course ED Course: Increased pain after epidural steroid injection without signs of infection, complication, neurological compromise. Pain unchanged from previous known chronic problem with only slight exacerbation. Extensive prior ED workup and imaging studies reviewed. Do not recommend further workup at this time. Counseled patient that unfortunately sometimes the pain does worsen after an injection in can do so for up to 10 days. There are no signs of any emergent conditions. She is given muscle relaxant, cyclobenzaprine to use at bedtime only as she is on other serotonin agents and cannot take this multiple times daily. She is instructed on Tylenol and ibuprofen. She is given 4 tablets of oxycodone from the vending machine to use if the pain is severe but is counseled that she will not receive further subsequent doses if she comes back to the ED and is to have her pain managed through her primary care physician or specialist only. Alarm symptoms reviewed that would warrant ED presentation. She verbalizes understanding and agreement. Vital Signs Vital signs: Initial Vital Signs Temperature 97.5 F L 01/23/23 23:05 Temperature Source Temporal Artery Scan 01/23/23 23:05 Pulse Rate 90 01/23/23 23:05 Pulse Rhythm Regular 01/23/23 23:05 Respiratory Rate 18 01/23/23 23:05 Blood Pressure 123/78 01/23/23 23:05 Blood Pressure Mean 93 01/23/23 23:05 Blood Pressure Position Sitting 01/23/23 23:05 Pulse Oximetry 97 01/23/23 23:05 Oxygen Delivery Method Room Air 01/23/23 23:05 Vital Signs Temperature 97.5 F L 01/23/23 23:05 Pulse Rate 90 01/23/23 23:05 Respiratory Rate 18 01/23/23 23:05 Blood Pressure 123/78 01/23/23 23:05 Pulse Oximetry 97 01/23/23 23:05 Oxygen Delivery Method Room Air 01/23/23 23:05 Temperature 97.5 F L 01/23/23 23:05 Pulse Rate 80 01/24/23 01:40 Respiratory Rate 18 01/24/23 01:40 Blood Pressure 135/62 01/24/23 01:40 Pulse Oximetry 98 01/24/23 01:40 Oxygen Delivery Method Room Air 01/24/23 01:40 Discharge Plan Discharge Clinical Impression: Cervical radiculopathy Patient Disposition: Home, Self-Care Condition: Stable Instructions: Epidural Steroid Injection (DC) Additional Instructions: As we discussed, unfortunately, sometimes your pain can worsen for up to 10 days after a steroid injection. This is not necessarily a sign that you will not get good pain relief eventually. There are no signs of any severe complications fro m the injection. I do recommend that you continue use of Tylenol and ibuprofen. I have given you a limited supply of muscle relaxants to use 1 tablet at night. I have given you a very limited supply of oxycodone, 4 tablets. You will not be given additional pain medication if he come back to the emergency department for this. All follow-up needs to be through the provider that performed your i njections or your primary care provider. You may repeat your dose of ibuprofen and or Tylenol at 3:00 a.m. if needed. Activity Level: No Restrictions Discharge Diet: Regular Prescriptions: No Action estradiol [Estrace] 0.01 % (0.1 mg/gram) cream 0.5 g vaginal 2XW Qty: 42.5 3RF Rx Instructions: Use nightly for 2 weeks, then twice weekly. May apply with finger. ojnfsyfoww-ixvukxpwfesmv-yvpv 50-300-40 mg capsule 1 cap PO TID PRN (Reason: pain) Qty: 20 0RF (DME) nebulizer and compressor [InnoSpire Essence] Device See Rx Instructions .ROUTE DIRECTED Qty: 1 Rx Instructions: As directed naproxen 500 mg tablet 500 mg PO BID Qty: 60 1RF albuterol sulfate 90 mcg/actuation HFA aerosol inhaler 2 puff inhalation Q4-6H PRN omeprazole 20 mg capsule,delayed release(DR/EC) 20 mg PO QDAY Qty: 90 1RF albuterol sulfate 2.5 mg/0.5 mL solution for nebulization 5 mg inhalation QID PRN (Reason: shortness of breath or wheezing) Qty: 30 1RF (DME) nebulizers Misc See Rx Instructions .Route Qty: 1 0RF Rx Instructions: As directed sertraline 100 mg tablet 100 mg PO DAILY Qty: 90 1RF trazodone 300 mg tablet 300 mg PO QHS Qty: 90 1RF pregabalin 100 mg capsule 100 mg PO BID Qty: 60 1RF fluticasone furoate-vilanterol 200-25 mcg/dose blister with device 1 inh inhalation DAILY Qty: 60 2RF oxycodone 5 mg tablet 5 mg PO Q8H PRN (Reason: pain) Qty: 20 0RF Follow Up/Referrals: Danny Hernández MD [Primary Care Provider] - [facility]one [facility] Info Instructions
== END 2023-01-24 01:50 | disposition home or self-care (01) ==
LOC: ED 01-24 01:37
PROVIDERS: Emergency Provider Family Medicine; PCP Family Medicine
DX: M54.12 Radiculopathy, cervical region (principal)
CPT/HCPCS: 99283

== ENCOUNTER 2023-01-31 04:09 | Outpatient (CLI) | payer BC, SELFPAY | END 2023-01-31 04:10 | disposition home or self-care (01) | LOC: AMB 02-02 13:35 | PROVIDERS: PCP Family Medicine; Visit Provider Family Medicine | DX: R42 Dizziness and giddiness (principal); R06.02 Shortness of breath | CPT/HCPCS: A0998 ==

== ENCOUNTER 2023-02-21 14:18 | Outpatient (CLI) | payer BC, SELFPAY | END 2023-02-21 14:19 | disposition home or self-care (01) | LOC: NFLDREF 14:19 | PROVIDERS: PCP Family Medicine; Visit Provider Family Medicine | DX: Z01.818 Encounter for other preprocedural examination (principal) | CPT/HCPCS: 80048 ==

== ENCOUNTER 2023-03-19 17:26 | Emergency (ER) | payer BC, SELFPAY ==
[2023-03-19 17:42] VITALS: BP 116/78; PULSE 91; RESP 18; TEMP 36.3; O2SAT 98; BMI 28.2
--- NOTE | 2023-03-19 19:35 | ED_ITS ---
HPI - General Adult General Time Seen by Provider: 19:49 Date Seen: 03/19/23 Chief complaint: Post Op Complication Stated complaint: neck pain, had surgery and her stitches hurt Time Seen by Provider: 03/19/23 19:34 Source: patient and RN notes reviewed Mode of arrival: ambulatory Limitations: no limitations History of Present Illness HPI narrative: Patient is a 43-year-old female that had cervical fusion at [facility] on 02/26/2023. She had what sounds to be subcuticular stitches, 1 was coming out of scar on her anterior neck, she states her primary doctor states she could just pull it. She did pull the stitch out on Friday that was coming through her scar, since then she has been having pain along the anterior neck. She states she also has pain along the right posterior neck. She has had no fevers. She still does have sense of some irritation or swelling with swallowing. She can still swallow however. She is having no breathing difficulties, no chest symptoms. Related Data Home Medications Medication Instructions Recorded Confirmed albuterol sulfate 90 mcg/actuation 2 puff inhalation Q4-6H PRN 10/12/21 03/04/23 aerosol inhaler nebulizer and compressor #1 ea 12/13/22 03/04/23 ([employer] Essence device) Previous Rx's Medication Instructions Recorded omeprazole 20 mg capsule,delayed 20 mg PO QDAY #90 caps 10/28/22 release albuterol sulfate 2.5 mg/0.5 mL 5 mg inhalation QID PRN shortness 11/01/22 solution for nebulization of breath or wheezing #30 ea nebulizers #1 ea 11/01/22 sertraline 100 mg tablet 100 mg PO DAILY #90 tabs 11/08/22 trazodone 300 mg tablet 300 mg PO QHS #90 tabs 12/03/22 pregabalin 100 mg capsule 100 mg PO BID #60 caps 01/07/23 fluticasone furoate 200 1 inh inhalation DAILY #60 ea 01/13/23 mcg-vilanterol 25 mcg/dose inhalation powder oxycodone 5 mg tablet 5 mg PO Q8H PRN pain #30 tabs 03/19/23 Allergies Allergy/AdvReac Type Severity Reaction Status Date / Time hydrocodone Allergy Intermediate itchy Verified 03/04/23 08:56 Review of Systems Narrative: As per HPI. PFSH PFSH Medical History (Updated 03/19/23 @ 21:13 by Rajni Landers MD) Cervical radiculopathy ?M54.12 - Radiculopathy, cervical region (ICD-10) Dyspareunia in female ?N94.10 - Unspecified dyspareunia (ICD-10) Mild persistent asthma ?J45.30 - Mild persistent asthma, uncomplicated (ICD-10) Migraine ?G43.909 - Migraine, unspecified, not intractable, without status migrainosus (ICD-10) Endometriosis ?N80.9 - Endometriosis, unspecified (ICD-10) Restless legs syndrome (03/25/12) ?G25.81 - Restless legs syndrome (ICD-10) Moderate episode of recurrent major depressive disorder (02/23/07) ?F33.1 - Major depressive disorder, recurrent, moderate (ICD-10) Insomnia (01/07/14) ?G47.00 - Insomnia, unspecified (ICD-10) Generalized anxiety disorder ?F41.1 - Generalized anxiety disorder (ICD-10) Gastroesophageal reflux disease (06/16/08) ?K21.9 - Gastro-esophageal reflux disease without esophagitis (ICD-10) Essential tremor (08/16/07) ?G25.0 - Essential tremor (ICD-10) Chronic abdominal pain ?R10.9 - Unspecified abdominal pain (ICD-10) ?G89.29 - Other chronic pain (ICD-10) Surgical History Status post laparoscopic hysterectomy ?Z90.710 - Acquired absence of both cervix and uterus (ICD-10) History of tubal ligation ?Z98.51 - Tubal ligation status (ICD-10) History of laparoscopy ?Z98.890 - Other specified postprocedural states (ICD-10) Family History Father High blood pressure Diabetes Chronic mental illness Mother High blood pressure Chronic mental illness Other ASCVD (arteriosclerotic cardiovascular disease) Social History Narrative: 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 She smokes daily. She drinks alcohol on occasion. She doesn't use recreational drugs. Smoking Status: Current every day smoker What tobacco products do you use: cigarettes Smoking packs per day: 0.25 Smoking cigarettes per day: 5.0 Years smoked: 28 Smoking pack-years: 7.00 Do you use any of these nicotine containing products: None Second hand tobacco smoke exposure: No How often do you have a drink containing alcohol: monthly or less Alcohol type: hard liquor How many standard drinks containing alcohol do you have on a typical day: 3 or 4 How often do you have six or more drinks on one occasion: Never AUDIT-C Alcohol total score: 2 Non-prescribed substance use: denies use Caffeine: No Little interest or pleasure in doing things: more than half the days Feeling down, depressed, or hopeless: more than half the days Are you using contraception or practicing any form of control: No service: No Exam Const: Vital Signs, click to edit/add: Vital Signs - 24 hr 03/19/23 17:42 Temperature 97.3 F L Pulse Rate [Right Pulse Oximeter] 91 Respiratory Rate 18 Blood Pressure [Ri ght Upper Arm] 116/78 Pulse Oximetry 98 Oxygen Delivery Me thod Room Air Documenting provider has reviewed patient's vital signs: yes Common normals: no apparent distress, average body habitus, oriented x3, no limitations, healthy appearing, alert and well nourished HENMT: Common normals: normocephalic, head/scalp atraumatic, hearing grossly normal bilaterally, external ears normal, external nose normal, nasal mucous membranes and turbinates normal, moist oral mucous membranes, oropharynx normal, dentition normal and gingiva normal Head and scalp: normocephalic and atraumatic Nose: external nose normal, nares normal and nasal mucous membranes and turbinates normal External ear: external ears normal Mouth: oral and palatal mucosa normal, lip normal and tongue normal Throat: posterior oropharynx normal Other: Speech is normal, no hoarseness. Eye: Common normals: PERRL, EOMs intact bilaterally, conjunctivae normal and no scleral icterus Conjunctiva: conjunctiva(e) normal Pupil: PERRL Neck & C-Spine: Common normals: no lymphadenopathy, supple and no JVD Other: Scar along anterior left neck, scar is slightly thickened and pink but does not appear infected, no surrounding erythema. She jumps when I attempt to even lightly touch the scar. There is a sense of some mild generalized tissue swelling on this area of the neck but nothing fluctuant or erythematous. I do not feel any enlargement of the thyroid, no cervical adenopathy. Resp: Common normals: normal respiratory effort and clear to auscultation bilaterally Effort & inspection: able to speak in complete sentences Auscultation: clear to auscultation bilaterally Cardio: Common normals: no JVD, regular rate, regular rhythm, S1 normal heart sound, S2 normal heart sound, no gallops, no clicks and no murmurs Rate: regular rate Rhythm: regular rhythm Heart sounds: S1 normal and S2 normal Neuro: Common normals: oriented x3 Sensorium/orientation: alert Course Course ED Course: With a complaint of some right posterior neck pain and left anterior soft tissue neck pain, discussed imaging with the patient. Will start with C-spine x-rays given she has hardware, this will give us best picture of her C-spine at this time. Will do soft tissue neck with IV contrast to look anteriorly. She understands left of an IV placed. The hardware in her neck can cause some artifact. We are looking to rule out infection, fluid collections. Will also get a CBC and C-reactive protein. Reevaluation(s) Time of Reevaluation #1: 21:10 Reevaluation #1: Provided reports of patient's cervical spine x-ray in her soft tissue neck CT, did review normal labs. She had requested pain management while she was here but by the time I was able to go back to talk to her, I had all of her results back. Did review with her that I did not feel comfortable giving further narcotics with the completely normal workup here. She did seem to be fine with that. Did discuss with her that if she was having pain issues, request that she contact her surgeon's office to go over this. She seemed comfortable with this plan. She was relieved that we are not finding anything concerning within the neck. Vital Signs Vital signs: Initial Vital Signs Temperature 97.3 F L 03/19/23 17:42 Temperature Source Temporal Artery Scan 03/19/23 17:42 Pulse Rate 91 03/19/23 17:42 Respiratory Rate 18 03/19/23 17:42 Blood Pressure 116/78 03/19/23 17:42 Blood Pressure Mean 90 03/19/23 17:42 Blood Pressure Position Sitting 03/19/23 17:42 Pulse Oximetry 98 03/19/23 17:42 Oxygen Delivery Method Room Air 03/19/23 17:42 Vital Signs Temperature 97.3 F L 03/19/23 17:42 Pulse Rate 91 03/19/23 17:42 Respiratory Rate 18 03/19/23 17:42 Blood Pressure 116/78 03/19/23 17:42 Pulse Oximetry 98 03/19/23 17:42 Oxygen Delivery Method Room Air 03/19/23 17:42 Temperature 97.3 F L 03/19/23 17:42 Pulse Rate 91 03/19/23 17:42 Respiratory Rate 18 03/19/23 17:42 Blood Pressure 116/78 03/19/23 17:42 Pulse Oximetry 98 03/19/23 17:42 Oxygen Delivery Method Room Air 03/19/23 17:42 Medical Decision Making Lab Data Lab results reviewed: Yes I reviewed the patient's lab results Labs: Lab Results 03/19/23 Range/Units 20:00 WBC 7.72 (4.50-11.00) K/uL RBC 4.60 (4.00-5.20) m/uL Hgb 13.5 (12.0-16.0) gm/dL Hct 40.5 (33.0-51.0) % MCV 88 (80-100) fL MCH 29 (26-34) pg MCHC 33 (32-36) gm/dL RDW Coeff of Jose Alberto 13.0 (11.5-15.5) % Plt Count 274 (140-440) K/uL Neut % (Auto) 64.8 (42.0-72.0) % Lymph % (Auto) 25.5 (20-44) % [place] % (Auto) 8.3 (0.0-11.0) % Eos % (Auto) 1.2 (0.0-7.0) % Baso % (Auto) 0.1 (0.0-3.0) % Neut # (Auto) 5.00 (1.7-7.0) K/uL Lymph # (Auto) 1.97 (0.90-2.90) K/uL [place] # (Auto) 0.60 (0.00-0.90) K/UL Eos # (Auto) 0.09 (0.00-0.50) K/uL Baso # (Auto) 0.01 (0.00-0.30) K/uL Abs Immat Gran (auto) 0.01 (0.00-0.30) K/uL Imm/Tot Granulo (auto) 0.1 % C-Reactive Protein 0.5 (0.5-1.0) mg/dL Imaging Data CT soft tissue neck: Attestation: I have reviewed the pertinent imaging results. Radiologist's impression: Patient: LIBRA GARY Facility:?[facility] Patient ID:?[id number] Site Patient ID:?[id number] Site :?1980 Study:?CT ST Neck W 85 CC [id number]/6/2023 8:40:44 PM Ordering Physician:?Anshul Urban Final Report: INDICATION: Anterior neck pain, swelling status post cervical spine surgery on 02/26/2023. TECHNIQUE: CT soft tissue of the neck was acquired with 100 cc of Omnipaque 350 IV contrast. Permanently recorded images are archived. COMPARISON: Cervical spine MRI 11/13/22. FINDINGS: Imaged Brain Parenchyma: Unremarkable. Paranasal Sinuses and Mastoid Air Cells: Clear. Pharynx/Larynx/Trachea: Tonsils are unremarkable. Epiglottis is normal. Airway is patent. No prevertebral soft tissue swelling. Salivary glands: Unremarkable. Thyroid gland: Unremarkable. No significant nodules. Lymph nodes: No lymphadenopathy. Vessels: Unremarkable for age. Bones: Interval postsurgical changes of ACDF at C5-6. Mild intervertebral disc height loss at C4-5 and C6-7. No acute fracture. Reversal of cervical lordosis with trace grade 1 anterolisthesis of C3 on C4. Misc: No inflammation, mass or fluid collection. Lung apices: Unremarkable. IMPRESSION: Interval postsurgical changes of ACDF at C5-6. No evidence for postoperative abscess or retropharyngeal fluid collection. No obvious complication. Please note that all CT scans at this facility use dose modulation, iterative reconstruction, and/or weight-based dosing when appropriate to reduce radiation dose to as low as reasonably achievable. Dictated by Robbie Chen MD @ 03/19/2023 9:06:07 PM (Electronic Signature) XR cervical spine: Attestation: I have reviewed the pertinent imaging results. Radiologist's impression: Patient: LIBRA GARY Facility:?[facility] Patient ID:?[id number] Site Patient ID:?[id number]. Site :?[id number] Study:?XRay Spine Cervical -03/19/2023 8:30:08 PM Ordering Physician:Sy Urban Final Report: INDICATION: Neck pain after fusion. TECHNIQUE: Cervical spine 3 view. COMPARISON: None. FINDINGS: Bones: C5-C6 ACDF. Alignment is normal. No displaced fractures or significant bone lesions. Joints: Disc spaces and facets are unremarkable. Soft tissues: Unremarkable. Dictated by Russ Casas MD @ 03/19/2023 8:47:18 PM (Electronic Signature) Discharge Plan Discharge Clinical Impression: Postoperative pain Patient Disposition: Home, Self-Care Condition: Stable Instructions: Non-pharmacological Pain Management Therapies for Adults (ED), Pain Management After Surgery (DC) Additional Instructions: Continue with postoperative instructions and pain management per your surgeon. I do recommend you contact them to discuss further pain management. I am reassured by the cervical spine x-rays, normal CBC, normal soft tissue neck CT. At this time, there appears to be normal cervical hardware and fusion, no evidence of any infection. Prescriptions: No Action (DME) nebulizer and compressor [[employer] Essence] Device See Rx Instructions .ROUTE DIRECTED Qty: 1 Rx Instructions: As directed albuterol sulfate 90 mcg/actuation HFA aerosol inhaler 2 puff inhalation Q4-6H PRN omeprazole 20 mg capsule,delayed release(DR/EC) 20 mg PO QDAY Qty: 90 1RF albuterol sulfate 2.5 mg/0.5 mL solution for nebulization 5 mg inhalation QID PRN (Reason: shortness of breath or wheezing) Qty: 30 1RF (DME) nebulizers Misc See Rx Instructions .Route Qty: 1 0RF Rx Instructions: As directed sertraline 100 mg tablet 100 mg PO DAILY Qty: 90 1RF trazodone 300 mg tablet 300 mg PO QHS Qty: 90 1RF pregabalin 100 mg capsule 100 mg PO BID Qty: 60 1RF fluticasone furoate-vilanterol 200-25 mcg/dose blister with device 1 inh inhalation DAILY Qty: 60 2RF oxycodone 5 mg tablet 5 mg PO Q8H PRN (Reason: pain) Qty: 30 0RF Rx Instructions: Chronic pain, not acute Follow Up/Referrals: Danny Hernández MD [Primary Care Provider] - Stand Alone [facility]
--- NOTE | 2023-03-19 19:54 | CRLHL7_ITS ---
For Patients: As a result of the Cures Act, medical imaging exams and procedure reports are released immediately into your electronic medical record. You may view this report before your referring provider. If you have questions, please contact your health care provider. INDICATION: Anterior neck pain, swelling status post cervical spine surgery on 02/26/2023. TECHNIQUE: CT soft tissue of the neck was acquired with 100 cc of Omnipaque 350 IV contrast. Permanently recorded images are archived. COMPARISON: Cervical spine MRI 11/13/22. FINDINGS: Imaged Brain Parenchyma: Unremarkable. Paranasal Sinuses and Mastoid Air Cells: Clear. Pharynx/Larynx/Trachea: Tonsils are unremarkable. Epiglottis is normal. Airway is patent. No prevertebral soft tissue swelling. Salivary glands: Unremarkable. Thyroid gland: Unremarkable. No significant nodules. Lymph nodes: No lymphadenopathy. Vessels: Unremarkable for age. Bones: Interval postsurgical changes of ACDF at C5-6. Mild intervertebral disc height loss at C4-5 and C6-7. No acute fracture. Reversal of cervical lordosis with trace grade 1 anterolisthesis of C3 on C4. Misc: No inflammation, mass or fluid collection. Lung apices: Unremarkable. IMPRESSION: Interval postsurgical changes of ACDF at C5-6. No evidence for postoperative abscess or retropharyngeal fluid collection. No obvious complication. Please note that all CT scans at this facility use dose modulation, iterative reconstruction, and/or weight-based dosing when appropriate to reduce radiation dose to as low as reasonably achievable. Dictated by Robbie Chen MD @ 03/19/2023 9:06:07 PM (Electronically Signed)
--- NOTE | 2023-03-19 19:54 | CRLHL7_ITS ---
For Patients: As a result of the Cures Act, medical imaging exams and procedure reports are released immediately into your electronic medical record. You may view this report before your referring provider. If you have questions, please contact your health care provider. INDICATION: Neck pain after fusion. TECHNIQUE: Cervical spine 3 view. COMPARISON: None. FINDINGS: Bones: C5-C6 ACDF. Alignment is normal. No displaced fractures or significant bone lesions. Joints: Disc spaces and facets are unremarkable. Soft tissues: Unremarkable. Dictated by Russ Casas MD @ 03/19/2023 8:47:18 PM (Electronically Signed)
[2023-03-19 20:09] LABS: Basophils Absolute Auto 0.01 K/uL (0.00-0.30); Basophils Percent Auto 0.1 % (0.0-3.0); Eosinophils Absolute Auto 0.09 K/uL (0.00-0.50); Eosinophils Percent Auto 1.2 % (0.0-7.0); Hematocrit 40.5 % (33.0-51.0); Hemoglobin* 13.5 gm/dL (12.0-16.0); Immature Granulocytes Abs Auto 0.01 K/uL (0.00-0.30); Immature Granulocytes Pct Auto 0.1 %; Lymphocytes Absolute Auto 1.97 K/uL (0.90-2.90); Lymphocytes Percent Auto 25.5 % (20-44); Mean Corpuscular HGB Conc 33 gm/dL (32-36); Mean Corpuscular Hemoglobin 29 pg (26-34); Mean Corpuscular Volume 88 fL (80-100); Monocytes Percent Auto 8.3 % (0.0-11.0); Neutrophils Percent Auto 64.8 % (42.0-72.0); Platelet Count* 274 K/uL (140-440); White Blood Count* 7.72 K/uL (4.50-11.00)
[2023-03-19 20:13] LABS: Slide Review Reflex No
[2023-03-19 20:29] LABS: C Reactive Protein* 0.5 mg/dL (0.5-1.0)
[2023-03-19 21:18] VITALS: BP 116/87; PULSE 74; RESP 16; O2SAT 97
== END 2023-03-19 21:20 | disposition home or self-care (01) ==
PROVIDERS: Emergency Provider Family Medicine; PCP Family Medicine
DX: G89.18 Other acute postprocedural pain (principal)
CPT/HCPCS: 36415; 70491; 72040; 85025; 86140; 99284; Q9967

== ENCOUNTER 2023-06-05 19:56 | Emergency (ER) | payer BC, SELFPAY ==
[2023-06-05 20:07] VITALS: BP 116/81; PULSE 77; RESP 18; TEMP 36.4; O2SAT 97
--- NOTE | 2023-06-05 20:44 | ED_ITS ---
HPI - Abdominal Pain General Time Seen by Provider: 20:44 Date Seen: 06/05/23 Chief Complaint: Abdominal Pain Stated Complaint: abdominal pain Time Seen by Provider: 06/05/23 20:36 Source: patient, RN notes reviewed and old records reviewed Mode of arrival: ambulatory Limitations: no limitations History of Present Illness HPI narrative: This 43-year-old female is coming in with abdominal pain starting on the right side and wrapping into her back on the same side, symptoms started about 4 and half maybe 5 hours prior to arrival. She felt a little nausea but has had no vomiting. Denies any diarrhea. No trauma. No change in urinary symptoms. She states she does have a history of kidney stones. She has had exploratory surgery for diagnosis of endometriosis. She has had tubal ligation before, subsequent hysterectomy, reports both ovaries are gone as well. She still does have her appendix, is unaware of any family members of appendicitis. She states she had a fever yesterday of 100? F, no other associated symptoms with this. No fever today. Her son was recently sick with the flu per her report. MD elicited complaint: abdominal pain Related Data Home Medications Medication Instructions Recorded Confirmed albuterol sulfate 90 mcg/actuation 2 puff inhalation Q4-6H PRN 10/12/21 04/11/23 aerosol inhaler nebulizer and compressor #1 ea 12/13/22 03/04/23 ([employer] Essence device) Previous Rx's Medication Instructions Recorded albuterol sulfate 2.5 mg/0.5 mL 5 mg inhalation QID PRN shortness 11/01/22 solution for nebulization of breath or wheezing #30 ea nebulizers #1 ea 11/01/22 fluticasone furoate 200 1 inh inhalation DAILY #60 ea 04/17/23 mcg-vilanterol 25 mcg/dose inhalation powder omeprazole 20 mg capsule,delayed 20 mg PO QDAY #90 caps 04/17/23 release naproxen 500 mg tablet 500 mg PO BID #180 tabs 05/01/23 sertraline 100 mg tablet 100 mg PO DAILY #90 tabs 05/01/23 trazodone 300 mg tablet 300 mg PO QHS #90 tabs 05/16/23 oxycodone 5 mg tablet 5 mg PO BID PRN pain #40 tabs 06/05/23 Allergies Allergy/AdvReac Type Severity Reaction Status Date / Time hydrocodone Allergy Intermediate itchy Verified 04/11/23 11:05 Review of Systems Status of ROS Reports: 6 or more systems reviewed and unremarkable except as noted in History and below [facility] Medical History Cervical radiculopathy ?M54.12 - Radiculopathy, cervical region (ICD-10) Dyspareunia in female ?N94.10 - Unspecified dyspareunia (ICD-10) Mild persistent asthma ?J45.30 - Mild persistent asthma, uncomplicated (ICD-10) Migraine ?G43.909 - Migraine, unspecified, not intractable, without status migrainosus (ICD-10) Endometriosis ?N80.9 - Endometriosis, unspecified (ICD-10) Restless legs syndrome (03/25/12) ?G25.81 - Restless legs syndrome (ICD-10) Moderate episode of recurrent major depressive disorder (02/23/07) ?F33.1 - Major depressive disorder, recurrent, moderate (ICD-10) Insomnia (01/07/14) ?G47.00 - Insomnia, unspecified (ICD-10) Generalized anxiety disorder ?F41.1 - Generalized anxiety disorder (ICD-10) Gastroesophageal reflux disease (06/16/08) ?K21.9 - Gastro-esophageal reflux disease without esophagitis (ICD-10) Essential tremor (08/16/07) ?G25.0 - Essential tremor (ICD-10) Chronic abdominal pain ?R10.9 - Unspecified abdominal pain (ICD-10) ?G89.29 - Other chronic pain (ICD-10) Surgical History History of fusion of cervical spine ?Z98.1 - Arthrodesis status (ICD-10) Status post laparoscopic hysterectomy ?Z90.710 - Acquired absence of both cervix and uterus (ICD-10) History of tubal ligation ?Z98.51 - Tubal ligation status (ICD-10) History of laparoscopy ?Z98.890 - Other specified postprocedural states (ICD-10) Family History Father High blood pressure Diabetes Chronic mental illness Mother High blood pressure Chronic mental illness Other ASCVD (arteriosclerotic cardiovascular disease) Social History Narrative: 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 She smokes daily. She drinks alcohol on occasion. She doesn't use recreational drugs. Smoking Status: Current every day smoker What tobacco products do you use: cigarettes Smoking packs per day: 0.25 Smoking cigarettes per day: 5.0 Years smoked: 28 Smoking pack-years: 7.00 Do you use any of these nicotine containing products: None Second hand tobacco smoke exposure: No How often do you have a drink containing alcohol: monthly or less Alcohol type: hard liquor How many standard drinks containing alcohol do you have on a typical day: 3 or 4 How often do you have six or more drinks on one occasion: Never AUDIT-C Alcohol total score: 2 Non-prescribed substance use: denies use Caffeine: No Little interest or pleasure in doing things: several days Feeling down, depressed, or hopeless: more than half the days Are you using contraception or practicing any form of control: No service: No Exam Const: Vital Signs, click to edit/add: Vital Signs - 24 hr 06/05/23 20:07 Temperature 97.6 F Pulse Rate [Pulse Oximeter] 77 Respiratory Rate 18 Blood Pressure [Ri ght Upper Arm] 116/81 Pulse Oximetry 97 Oxygen Delivery Me thod Room Air Patient is alert, interactive, no apparent distress. Sclera clear, conjugate gaze, symmetrical facial function, able speak in complete sentences. Lungs are clear, good air entry, no wheezing or crackles. CV regular rate and rhythm, no murmur, normal S1-S2, no S3-S4. Abdomen is soft, normal bowel sounds, does complain of some right lower quadrant tenderness but there is no rebound or guarding, feel no masses. Moving extremities, ambulatory into the ED of her own accord. Documenting provider has reviewed patient's vital signs: yes Course Course ED Course: Patient is coming in with about a 4-5 hour history of right-sided abdominal pain. She does report a history of kidney stones, still has her appendix. History he would seem that it might be most consistent with kidney stones the way she is describing the pain and radiating into her back. She is aware we would like a urinalysis but states she cannot provide [address] an IV, check basic labs, give her L of IV fluids and 15 mg IV Toradol for pain management. She is on chronic oxycodone per her chart. It is possible constipation could be an issue with chronic narcotics. Infectious etiology, consideration for appendicitis and kidney stones all being considered. I do have significant concerns about this patient receiving further radiation. Since coming to our facility in 2013, I see where she is had 26 CT imaging studies. This does not include x-rays. Have discussed with her the importance of radiation exposure, she has had many CT scans in certainly is at higher risk for radiation induced cancers based on her exposure. It is important that this patient avoid further CT imaging if at all possible. We will see how she responds to the fluids, see if we can get urinalysis and labs to help guide us. Reevaluation(s) Time of Reevaluation #1: 21:42 Reevaluation #1: Reviewed with patient that her white blood count, lactate are normal, C-reactive protein is less than 0.5, no concerns with her comprehensive metabolic panel. She did just leave a urinalysis. While we wait for this, will do flat and upright of her abdomen. We specifically did discuss appendicitis. She is maybe 7 hours into symptoms, with normal labs and her history of significant CT imaging and radiation exposure, we have discussed period of observation rather than doing an early CT of her abdomen. We will do flat and upright to look at other etiologies such as possibly seen a kidney stone, rule out constipation or such things as ileus, developing bowel obstruction. Time of Reevaluation #2: 23:28 Reevaluation #2: Reviewed with patient that the radiologist did comment on some stool on the abdomen but there was no evidence of any obstructive pathology. Urinalysis nor the plain imaging on the abdomen support any kidney stones. We did discuss appendicitis but with normal labs, would favor observation. Did offer patient to do this CT tonight but she is declining. I do think that this is a reasonable way to go. We have discussed that if her abdominal pain is continuing tomorrow, she develops fever, or vomiting with abdominal pain, does need to be re-evaluated and we may very well have to do a CT in this circumstance. We did discuss it is completely on likely for her to have ongoing endometriosis issues given that she has had a hysterectomy and both ovaries out. We will repeat a dose of Toradol 15 mg IV for her. We discussed avoidance of narcotics in this situation as we do not want to mask anything. She is in agreement with this plan. Vital Signs Vital signs: Initial Vital Signs Temperature 97.6 F 06/05/23 20:07 Temperature Source Temporal Artery Scan 06/05/23 20:07 Pulse Rate 77 06/05/23 20:07 Pulse Rhythm Regular 06/05/23 20:07 Respiratory Rate 18 06/05/23 20:07 Blood Pressure 116/81 06/05/23 20:07 Blood Pressure Mean 92 06/05/23 20:07 Blood Pressure Position Sitting 06/05/23 20:07 Pulse Oximetry 97 06/05/23 20:07 Oxygen Delivery Method Room Air 06/05/23 20:07 Vital Signs Temperature 97.6 F 06/05/23 20:07 Pulse Rate 77 06/05/23 20:07 Respiratory Rate 18 06/05/23 20:07 Blood Pressure 116/81 06/05/23 20:07 Pulse Oximetry 97 06/05/23 20:07 Oxygen Delivery Method Room Air 06/05/23 20:07 Temperature 97.6 F 06/05/23 20:07 Pulse Rate 77 06/05/23 20:07 Respiratory Rate 18 06/05/23 20:07 Blood Pressure 116/81 06/05/23 20:07 Pulse Oximetry 97 06/05/23 20:07 Oxygen Delivery Method Room Air 06/05/23 20:07 Medications Administered Medications: Discontinued Medications Generic Name Dose Route Start Last Admin Trade Name Davideq PRN Reason Stop Dose Admin Sodium Chloride 1,000 mls @ 1,000 mls/hr 06/05/23 20:46 06/05/23 21:37 0.9 % Sodium Chloride 1000 Ml IV 06/05/23 21:45 Infused .Q1H TOMI Infusion Ketorolac Tromethamine 15 mg 06/05/23 20:45 06/05/23 21:03 Ketorolac 15 Mg/Ml Inj IVP 06/05/23 20:46 15 mg ONCE ONE Administration MDM - Abdominal Pain Lab Data Attestation: I reviewed the patient's lab results. Labs: Lab Results 06/05/23 06/05/23 Range/Units 20:55 22:55 WBC 8.04 (4.50-11.00) K/uL RBC 4.61 (4.00-5.20) m/uL Hgb 13.5 (12.0-16.0) gm/dL Hct 40.7 (33.0-51.0) % MCV 88 (80-100) fL MCH 29 (26-34) pg MCHC 33 (32-36) gm/dL RDW Coeff of Jose Alberto 12.8 (11.5-15.5) % Plt Count 250 (140-440) K/uL Neut % (Auto) 67.4 (42.0-72.0) % Lymph % (Auto) 23.5 (20-44) % Coos % (Auto) 7.1 (0.0-11.0) % Eos % (Auto) 1.6 (0.0-7.0) % Baso % (Auto) 0.2 (0.0-3.0) % Neut # (Auto) 5.41 (1.7-7.0) K/uL Lymph # (Auto) 1.89 (0.90-2.90) K/uL Coos # (Auto) 0.60 (0.00-0.90) K/UL Eos # (Auto) 0.13 (0.00-0.50) K/uL Baso # (Auto) 0.02 (0.00-0.30) K/uL Abs Immat Gran (auto) 0.02 (0.00-0.30) K/uL Imm/Tot Granulo (auto) 0.2 % Sodium 139 (135-149) mmol/L Potassium 3.4 L (3.6-5.1) mmol/L Chloride 105 (96-114) mmol/L Carbon Dioxide 26 (20-32) mmol/L Anion Gap 8 (7-15) mEq/L BUN 18 (5-24) mg/dL Creatinine 0.7 (0.5-1.5) mg/dL Estimated Creat Clear 131.78 Estimated GFR 111 ml/min Glucose 98 (60-115) mg/dL Lactate 1.0 (0.5-1.9) mmol/L Calcium 8.9 (8.4-10.6) mg/dL Total Bilirubin 0.4 (0.1-1.5) mg/dL AST 26 (12-35) U/L ALT 34 (4-35) U/L Alkaline Phosphatase 85 (40-150) U/L C-Reactive Protein < 0.5 L (0.5-1.0) mg/dL Total Protein 7.2 (6.0-8.3) g/dL Albumin 4.2 (3.3-5.0) g/dL Urine Color Yellow (Yellow) Urine Appearance Clear (Clear) Urine pH 7.0 (5.0-8.5) Ur Specific [place] 1.025 (1.000-1.030) Urine Protein Negative (Negative) Urine Glucose (UA) Negative (Negative) Urine Ketones Negative (Negative) Urine Blood Negative (Negative) Urine Nitrite Negative (Negative) Urine Bilirubin Negative (Negative) Urine Urobilinogen 1.0 (0.2-1.0) Ur Leukocyte Esterase Negative (Negative) Urine RBC 0-2 (0-2) Urine WBC 0-2 (0-5) Ur Squamous Epith Cells Few (None-Few) Urine Bacteria None (None) Imaging Data Abdominal x-ray: Attestation: I have reviewed the pertinent imaging results. Radiologist's impression: Patient: LIBRA GARY Facility:?[facility] Patient ID:?[id number] Site Patient ID:?[id number]. Site :?1980 Study:?XRay Abdomen 2V-06/05/2023 10:16:23 PM Ordering Physician:JAH Final Report: INDICATION: Right lower quadrant pain. History of kidney stones. COMPARISON: CT of the abdomen and pelvis 10/22/2022. TECHNIQUE: Abdomen 3 view. FINDINGS: Nonobstructive bowel gas pattern. Moderate amount of stool throughout the colon. No free air under the hemidiaphragms. No calculi identified over either kidney or along the expected course of the ureters. Multiple small calcific densities in the pelvis are presumably phleboliths. The bones are unremarkable. The lung bases are clear. IMPRESSION: Nonobstructive bowel gas pattern. Dictated by Marina Rojas MD @ 06/05/2023 10:33:44 PM (Electronic Signature) Discharge Plan Discharge Clinical Impression: Abdominal pain Patient Disposition: Home, Self-Care Condition: Stable Instructions: Abdominal Pain (ED) Additional Instructions: Drink plenty of fluids. Can use Tylenol and or ibuprofen or other pain management that you have at home. If your abdominal pain is not improving tomorrow or if you develop vomiting or fever with it at any time, do need to be re-evaluated. Can try a warm tub bath, heating pad, see if that helps help your abdominal symptoms. Activity Level: Activity as Tolerated Prescriptions: No Action (DME) nebulizer and compressor [[employer] Essence] Device See Rx Instructions .ROUTE DIRECTED Qty: 1 Rx Instructions: As directed albuterol sulfate 90 mcg/actuation HFA aerosol inhaler 2 puff inhalation Q4-6H PRN albuterol sulfate 2.5 mg/0.5 mL solution for nebulization 5 mg inhalation QID PRN (Reason: shortness of breath or wheezing) Qty: 30 1RF (DME) nebulizers Misc See Rx Instructions .Route Qty: 1 0RF Rx Instructions: As directed fluticasone furoate-vilanterol 200-25 mcg/dose blister with device 1 inh inhalation DAILY Qty: 60 12RF omeprazole 20 mg capsule,delayed release(DR/EC) 20 mg PO QDAY Qty: 90 3RF sertraline 100 mg tablet 100 mg PO DAILY Qty: 90 1RF naproxen 500 mg tablet 500 mg PO BID Qty: 180 1RF trazodone 300 mg tablet 300 mg PO QHS Qty: 90 1RF oxycodone 5 mg tablet 5 mg PO BID PRN (Reason: pain) Qty: 40 0RF Rx Instructions: Chronic pain, not acute. Must last a month. Follow Up/Referrals: Danny Hernández MD [Primary Care Provider] - Stand Alone Forms: [facility] Info Instructions
[2023-06-05] MEDS: 0.9 % SODIUM CHLORIDE 1000 ml 1,000 ML IV (21:03)
[2023-06-05] MEDS: KETOROLAC 15 MG/ML inj IVP ×2 (21:03→23:32)
[2023-06-05 21:13] LABS: Basophils Absolute Auto 0.02 K/uL (0.00-0.30); Basophils Percent Auto 0.2 % (0.0-3.0); Eosinophils Absolute Auto 0.13 K/uL (0.00-0.50); Eosinophils Percent Auto 1.6 % (0.0-7.0); Hematocrit 40.7 % (33.0-51.0); Hemoglobin* 13.5 gm/dL (12.0-16.0); Immature Granulocytes Abs Auto 0.02 K/uL (0.00-0.30); Immature Granulocytes Pct Auto 0.2 %; Lymphocytes Absolute Auto 1.89 K/uL (0.90-2.90); Lymphocytes Percent Auto 23.5 % (20-44); Mean Corpuscular HGB Conc 33 gm/dL (32-36); Mean Corpuscular Hemoglobin 29 pg (26-34); Mean Corpuscular Volume 88 fL (80-100); Monocytes Percent Auto 7.1 % (0.0-11.0); Neutrophils Absolute Auto 5.41 K/uL (1.7-7.0); Neutrophils Percent Auto 67.4 % (42.0-72.0); Platelet Count* 250 K/uL (140-440); RDW Coefficient of Variation % 12.8 % (11.5-15.5); Red Blood Count 4.61 m/uL (4.00-5.20); White Blood Count* 8.04 K/uL (4.50-11.00)
[2023-06-05 21:19] LABS: Slide Review Reflex No
[2023-06-05 21:22] LABS: Albumin* 4.2 g/dL (3.3-5.0); Chloride* 105 mmol/L (96-114)
[2023-06-05 21:23] LABS: Potassium* 3.4 mmol/L (3.6-5.1); Sodium* 139 mmol/L (135-149)
[2023-06-05 21:25] LABS: Anion Gap 8 mEq/L (7-15); Aspartate Amino Transferase* 26 U/L (12-35); Bilirubin Total* 0.4 mg/dL (0.1-1.5); Carbon Dioxide* 26 mmol/L (20-32); Creatinine* 0.7 mg/dL (0.5-1.5); Est. Creatinine Clearance* 131.78; Estimated Glomerular Filt Rate 111 ml/min; Total Protein* 7.2 g/dL (6.0-8.3)
[2023-06-05 21:26] LABS: Alanine Aminotransferase* 34 U/L (4-35); Blood Urea Nitrogen* 18 mg/dL (5-24); Calcium* 8.9 mg/dL (8.4-10.6); Glucose* 98 mg/dL (60-115)
[2023-06-05 21:33] LABS: C Reactive Protein* < 0.5 mg/dL (0.5-1.0)
[2023-06-05 21:40] LABS: Alkaline Phosphatase* 85 U/L (40-150)
--- NOTE | 2023-06-05 21:41 | XR_ITS ---
Patient: LIBRA GARY Facility:?[facility] Patient ID:?[id number] Site Patient ID:?[id number]. Site :?1980 Study:?XRay-Abdomen 2V-06/05/2023 10:16:23 PM Ordering Physician:JAH Final Report: INDICATION: Right lower quadrant pain. History of kidney stones. COMPARISON: CT of the abdomen and pelvis 10/22/2022. TECHNIQUE: Abdomen 3 view. FINDINGS: Nonobstructive bowel gas pattern. Moderate amount of stool throughout the colon. No free air under the hemidiaphragms. No calculi identified over either kidney or along the expected course of the ureters. Multiple small calcific densities in the pelvis are presumably phleboliths. The bones are unremarkable. The lung bases are clear. IMPRESSION: Nonobstructive bowel gas pattern. Dictated by Marina Rojas MD @ 06/05/2023 10:33:44 PM Signed by:?Marina Rojas MD @06/05/2023 10:33:44 PM (Electronic Signature)
[2023-06-05 23:01] LABS: Appearance Urine Clear (Clear); Bilirubin Urine Negative (Negative); Blood Urine Negative (Negative); Color Urine Yellow (Yellow); Glucose Urine Negative (Negative); Ketones Urine Negative (Negative); Leukocyte Esterase Urine Negative (Negative); Nitrite Urine Negative (Negative); Protein Urine Negative (Negative); Specific Gravity Urine 1.025 (1.000-1.030)
[2023-06-05 23:14] LABS: RBC Urine 0-2 (0-2); Squamous Epithelial Cell Urine Few (None-Few); WBC Urine 0-2 (0-5)
== END 2023-06-05 23:52 | disposition home or self-care (01) ==
PROVIDERS: Emergency Provider Family Medicine; PCP Family Medicine
DX: R10.9 Unspecified abdominal pain (principal)
CPT/HCPCS: 36415; 74019; 80053; 81001; 83605; 85025; 86140; 96374; 96376; 99284; J1885; J7030

== ENCOUNTER 2023-06-25 13:55 | Emergency (ER) | payer BC, SELFPAY ==
[2023-06-25 14:01] VITALS: BP 113/81; PULSE 86; RESP 20; TEMP 36.5; O2SAT 97; BMI 29.0
--- NOTE | 2023-06-25 14:30 | ED.GENADULT ---
HPI - General Adult General Chief complaint: Neck Injury/Pain Stated complaint: neck pain, right arm numb Time Seen by Provider: 06/25/23 14:03 History of Present Illness HPI narrative: Patient is a 43-year-old female had a cervical disc resection and fusion in February with [facility] in [place]. 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 She has done some lifting, she thinks perhaps maybe little more than she should have done. She is today developed some numbness in her hand and some tingling in her medial 3 fingers. She has had no midline neck pain or neck is moving well. She has a little bit of pain in her trapezius muscle as well. She was advised not to take ibuprofen on a steady basis but has no allergy for that. Her other medical history is reviewed. She is allergic to hydrocodone. She reports she has a metal fusion Related Data Home Medications Medication Instructions Recorded Confirmed albuterol sulfate 90 mcg/actuation 2 puff inhalation Q4-6H PRN 10/12/21 04/11/23 aerosol inhaler nebulizer and compressor #1 ea 12/13/22 03/04/23 ([employer] device) fluticasone furoate-vilanterol inhalation 06/25/23 Previous Rx's Medication Instructions Recorded albuterol sulfate 2.5 mg/0.5 mL 5 mg inhalation QID PRN shortness 11/01/22 solution for nebulization of breath or wheezing #30 ea nebulizers #1 ea 11/01/22 fluticasone furoate 200 1 inh inhalation DAILY #60 ea 04/17/23 mcg-vilanterol 25 mcg/dose inhalation powder omeprazole 20 mg capsule,delayed 20 mg PO QDAY #90 caps 04/17/23 release naproxen 500 mg tablet 500 mg PO BID #180 tabs 05/01/23 sertraline 100 mg tablet 100 mg PO DAILY #90 tabs 05/01/23 trazodone 300 mg tablet 300 mg PO QHS #90 tabs 05/16/23 oxycodone 5 mg tablet 5 mg PO BID PRN pain #40 tabs 06/05/23 celecoxib 200 mg capsule (Celebrex) 200 mg PO DAILY #5 caps 06/25/23 prednisone 20 mg tablet 20 mg PO BID 3 days #6 tabs 06/25/23 Allergies Allergy/AdvReac Type Severity Reaction Status Date / Time hydrocodone Allergy Intermediate itchy Verified 04/11/23 11:[address] [facility] Medical History Cervical radiculopathy ?M54.12 - Radiculopathy, cervical region (ICD-10) Dyspareunia in female ?N94.10 - Unspecified dyspareunia (ICD-10) Mild persistent asthma ?J45.30 - Mild persistent asthma, uncomplicated (ICD-10) Migraine ?G43.909 - Migraine, unspecified, not intractable, without status migrainosus (ICD-10) Endometriosis ?N80.9 - Endometriosis, unspecified (ICD-10) Restless legs syndrome (03/25/12) ?G25.81 - Restless legs syndrome (ICD-10) Moderate episode of recurrent major depressive disorder (02/23/07) ?F33.1 - Major depressive disorder, recurrent, moderate (ICD-10) Insomnia (01/07/14) ?G47.00 - Insomnia, unspecified (ICD-10) Generalized anxiety disorder ?F41.1 - Generalized anxiety disorder (ICD-10) Gastroesophageal reflux disease (06/16/08) ?K21.9 - Gastro-esophageal reflux disease without esophagitis (ICD-10) Essential tremor (08/16/07) ?G25.0 - Essential tremor (ICD-10) Chronic abdominal pain ?R10.9 - Unspecified abdominal pain (ICD-10) ?G89.29 - Other chronic pain (ICD-10) Surgical History History of fusion of cervical spine ?Z98.1 - Arthrodesis status (ICD-10) Status post laparoscopic hysterectomy ?Z90.710 - Acquired absence of both cervix and uterus (ICD-10) History of tubal ligation ?Z98.51 - Tubal ligation status (ICD-10) History of laparoscopy ?Z98.890 - Other specified postprocedural states (ICD-10) Family History Father High blood pressure Diabetes Chronic mental illness Mother High blood pressure Chronic mental illness Other ASCVD (arteriosclerotic cardiovascular disease) Social History Narrative: 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 She smokes daily. She drinks alcohol on occasion. She doesn't use recreational drugs. Smoking Status: Former smoker What tobacco products do you use: cigarettes Years smoked: 28 Second hand tobacco smoke exposure: No How often do you have a drink containing alcohol: monthly or less Alcohol type: hard liquor How many standard drinks containing alcohol do you have on a typical day: 3 or 4 How often do you have six or more drinks on one occasion: Never AUDIT-C Alcohol total score: 2 Non-prescribed substance use: denies use Caffeine: No Little interest or pleasure in doing things: several days Feeling down, depressed, or hopeless: more than half the days Are you using contraception or practicing any form of control: No service: No Exam Narrative: Exam Narrative: Objective: Vital signs showed no fever Full range of motion of the cervical spine No midline tenderness in cervical spine Normal strength sensation in her upper extremities bilaterally Patient does feel some subjective tingling in her hand and forearm She has mild tenderness in right trapezius muscle. Const: Vital Signs, click to edit/add: Vital Signs - 24 hr 06/25/23 14:01 Temperature 97.7 F Pulse Rate [Pulse Oximeter] 86 Respiratory Rate 20 Blood Pressure [Ri ght Upper Arm] 113/81 Pulse Oximetry 97 Oxygen Delivery Me thod Room Air Course Vital Signs Vital signs: Initial Vital Signs Temperature 97.7 F 06/25/23 14:01 Temperature Source Temporal Artery Scan 06/25/23 14:01 Pulse Rate 86 06/25/23 14:01 Respiratory Rate 20 06/25/23 14:01 Blood Pressure 113/81 06/25/23 14:01 Blood Pressure Mean 91 06/25/23 14:01 Pulse Oximetry 97 06/25/23 14:01 Oxygen Delivery Method Room Air 06/25/23 14:01 Vital Signs Temperature 97.7 F 06/25/23 14:01 Pulse Rate 86 06/25/23 14:01 Respiratory Rate 20 06/25/23 14:01 Blood Pressure 113/81 06/25/23 14:01 Pulse Oximetry 97 06/25/23 14:01 Oxygen Delivery Method Room Air 06/25/23 14:01 Temperature 97.7 F 06/25/23 14:01 Pulse Rate 86 06/25/23 14:01 Respiratory Rate 20 06/25/23 14:01 Blood Pressure 113/81 06/25/23 14:01 Pulse Oximetry 97 06/25/23 14:01 Oxygen Delivery Method Room Air 06/25/23 14:01 Medical Decision Making MDM Narrative Medical decision making narrative: [age] year white female status post cervical decompression and fusion, with likely bone graft inanition in addition to her metallic component of her fusion. She has the I think strain to her cervical trapezius muscle also she might have a mild cervical radiculitis. I do not think she has without significant neck pain any damage to her surgery, I would suggest however she consider Celebrex 200 mg daily for 3 days and prednisone 20 mg b.i.d. x3 days. I think this may alleviate some of her symptoms, if not improving in next 5-7 days will contact Surgical team again for reassessment. Shows a be recommended she take no other anti-inflammatories during the Celebrex. And only uses for very short time as mentioned. She is allergic to narcotic and that would not be an option here given her allergy. Discharge Plan Discharge Clinical Impression: Cervical radiculitis Patient Disposition: Home, Self-Care Condition: Stable Additional Instructions: No lifting, light activity, medicine as prescribed for several days. If you are not better in the next 5-7 days would recommend to contact the spine surgical team again. Continue icing her neck on a regular basis. Do not take any Advil/ibuprofen/Naprosyn/Aleve while you are taking the Celebrex. Activity Level: Light activity Discharge Diet: Regular Prescriptions: New celecoxib [Celebrex] 200 mg capsule 200 mg PO DAILY Qty: 5 0RF prednisone 20 mg tablet 20 mg PO BID 3 Days Qty: 6 0RF No Action (DME) nebulizer and compressor [[employer] Essence] Device See Rx Instructions .ROUTE DIRECTED Qty: 1 Rx Instructions: As directed albuterol sulfate 90 mcg/actuation HFA aerosol inhaler 2 puff inhalation Q4-6H PRN fluticasone furoate-vilanterol [[employer]o Ellipta] inhalation albuterol sulfate 2.5 mg/0.5 mL solution for nebulization 5 mg inhalation QID PRN (Reason: shortness of breath or wheezing) Qty: 30 1RF (DME) nebulizers Misc See Rx Instructions .Route Qty: 1 0RF Rx Instructions: As directed fluticasone furoate-vilanterol 200-25 mcg/dose blister with device 1 inh inhalation DAILY Qty: 60 12RF omeprazole 20 mg capsule,delayed release(DR/EC) 20 mg PO QDAY Qty: 90 3RF sertraline 100 mg tablet 100 mg PO DAILY Qty: 90 1RF naproxen 500 mg tablet 500 mg PO BID Qty: 180 1RF trazodone 300 mg tablet 300 mg PO QHS Qty: 90 1RF oxycodone 5 mg tablet 5 mg PO BID PRN (Reason: pain) Qty: 40 0RF Rx Instructions: Chronic pain, not acute. Must last a month. Follow Up/Referrals: Danny Hernández MD [Primary Care Provider] - Stand Alone [facility]: [facility] Info Instructions
== END 2023-06-25 14:39 | disposition home or self-care (01) ==
LOC: ED 14:29
PROVIDERS: Emergency Provider Family Medicine; PCP Family Medicine
DX: M54.12 Radiculopathy, cervical region (principal)
CPT/HCPCS: 99283

== ENCOUNTER 2023-06-30 18:20 | Emergency (ER) | payer BC, SELFPAY ==
[2023-06-30 18:37] VITALS: BP 120/83; PULSE 78; RESP 18; TEMP 36.8; O2SAT 98; BMI 29.0
--- NOTE | 2023-06-30 19:16 | ED_ITS ---
HPI - Neck Pain/Injury General Chief Complaint: Neck Injury/Pain Stated Complaint: Neck and R arm pain for 1 week Time Seen by Provider: 06/30/23 18:57 History of Present Illness HPI Narrative: This 43-year-old female comes in reporting right-sided neck pain radiating into her right arm that began about 10 days ago. She was seen 5 days ago in this emergency department and received a prescription for some tablets of Celebrex and prednisone. She states that she has finished taking these medicines but continues to have rather severe pain such that she has difficulty sleeping at night. She does have a follow-up appointment in a few days with her spine surgeon. She did have a fusion of her neck about 4 months ago at the level of C5 and C6. This brought relief of her pain until these past 10 days or so. She does not describe any injury event or strenuous activity that triggered these current symptoms. Related Data Home Medications Medication Instructions Recorded Confirmed albuterol sulfate 90 mcg/actuation 2 puff inhalation Q4-6H PRN 10/12/21 06/30/23 aerosol inhaler nebulizer and compressor #1 ea 12/13/22 03/04/23 (iTwixieoSpire Essence device) fluticasone furoate-vilanterol inhalation 06/25/23 naproxen 500 mg tablet 500 mg PO BID PRN pain 06/30/23 06/30/23 Previous Rx's Medication Instructions Recorded albuterol sulfate 2.5 mg/0.5 mL 5 mg inhalation QID PRN shortness 11/01/22 solution for nebulization of breath or wheezing #30 ea nebulizers #1 ea 11/01/22 fluticasone furoate 200 1 inh inhalation DAILY #60 ea 04/17/23 mcg-vilanterol 25 mcg/dose inhalation powder omeprazole 20 mg capsule,delayed 20 mg PO QDAY #90 caps 04/17/23 release sertraline 100 mg tablet 100 mg PO DAILY #90 tabs 05/01/23 trazodone 300 mg tablet 300 mg PO QHS #90 tabs 05/16/23 cyclobenzaprine 10 mg tablet 10 mg PO TID #15 tabs 06/30/23 ketorolac 10 mg tablet 10 mg PO Q8H 5 days #15 tabs 06/30/23 methylprednisolone 4 mg tablets in See Rx Instructions PO .COMPLEX 03/18/24 a dose pack (Medrol (Diego)) #21 ea Allergies Allergy/AdvReac Type Severity Reaction Status Date / Time hydrocodone Allergy Intermediate itchy Verified 06/30/23 18:41 Review of Systems Status of ROS: Reports: 10 or more systems reviewed and unremarkable except as noted in History and below Narrative: Constitutional: No fevers, no weight gain or loss. Eyes: No discharge. No vision changes. HENT: No congestion, no sore throat, no ear pain. Cardiovascular: No chest pain, no palpitations. Respiratory: No shortness of breath, no wheezes, no cough. Gastrointestinal: No abdominal pain, no vomiting, no diarrhea. Genitourinary: No dysuria, no hematuria. Musculoskeletal: Normal range of motion. Pain in the right side of her neck extending down into her arm and hand. Skin: No rashes, no pruritis. Neurological: No dizziness, weakness, speech change. Endo/Heme/Allergies: No bruising or bleeding. No polydipsia. Pysch: no suicidality, no anxiety, no insomnia. All other systems reviewed and are negative. [facility] Medical History Cervical radiculopathy ?M54.12 - Radiculopathy, cervical region (ICD-10) Dyspareunia in female ?N94.10 - Unspecified dyspareunia (ICD-10) Mild persistent asthma ?J45.30 - Mild persistent asthma, uncomplicated (ICD-10) Migraine ?G43.909 - Migraine, unspecified, not intractable, without status migrainosus (ICD-10) Endometriosis ?N80.9 - Endometriosis, unspecified (ICD-10) Restless legs syndrome (03/25/12) ?G25.81 - Restless legs syndrome (ICD-10) Moderate episode of recurrent major depressive disorder (02/23/07) ?F33.1 - Major depressive disorder, recurrent, moderate (ICD-10) Insomnia (01/07/14) ?G47.00 - Insomnia, unspecified (ICD-10) Generalized anxiety disorder ?F41.1 - Generalized anxiety disorder (ICD-10) Gastroesophageal reflux disease (06/16/08) ?K21.9 - Gastro-esophageal reflux disease without esophagitis (ICD-10) Essential tremor (08/16/07) ?G25.0 - Essential tremor (ICD-10) Chronic abdominal pain ?R10.9 - Unspecified abdominal pain (ICD-10) ?G89.29 - Other chronic pain (ICD-10) Surgical History History of fusion of cervical spine ?Z98.1 - Arthrodesis status (ICD-10) Status post laparoscopic hysterectomy ?Z90.710 - Acquired absence of both cervix and uterus (ICD-10) History of tubal ligation ?Z98.51 - Tubal ligation status (ICD-10) History of laparoscopy ?Z98.890 - Other specified postprocedural states (ICD-10) Family History Father High blood pressure Diabetes Chronic mental illness Mother High blood pressure Chronic mental illness Other ASCVD (arteriosclerotic cardiovascular disease) Social History Narrative: 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 She smokes daily. She drinks alcohol on occasion. She doesn't use recreational drugs. Smoking Status: Former smoker What tobacco products do you use: cigarettes Years smoked: 28 Smoking quit date/years: <= 15 years ago Second hand tobacco smoke exposure: No How often do you have a drink containing alcohol: monthly or less Alcohol type: hard liquor How many standard drinks containing alcohol do you have on a typical day: 3 or 4 How often do you have six or more drinks on one occasion: Never AUDIT-C Alcohol total score: 2 Non-prescribed substance use: denies use Caffeine: No Little interest or pleasure in doing things: several days Feeling down, depressed, or hopeless: more than half the days Are you using contraception or practicing any form of control: No service: No Exam Narrative: Exam Narrative: Constitutional: Well-developed, well-nourished, no acute distress. HEENT: Normocephalic, atraumatic. Neck: Normal range of motion. Nontender. Supple. Heart: Intact distal pulses. Lungs: No chest discomfort. No wheezes, rhonchi, or rales. Abdomen: Nontender. Back: Normal range of motion. Extremities: Normal range of motion. No injury. Pain radiating from the right posterior neck into the right arm. Skin: Intact. No rash. Warm. No erythema or pallor. Neurologic: No altered sensation. No weakness. Alert and oriented. Psychiatric: No suicidality. No anxiety or depression. No insomnia. Nursing notes and vitals signs are reviewed. Const: Vital Signs, click to edit/add: Vital Signs - 24 hr 06/30/23 18:37 Temperature 98.3 F Pulse Rate [Pulse Oximeter] 78 Respiratory Rate 18 Blood Pressure [Ri ght Upper Arm] 120/83 Pulse Oximetry 98 Oxygen Delivery Me thod Room Air Course Vital Signs Vital signs: Initial Vital Signs Temperature 98.3 F 06/30/23 18:37 Temperature Source Temporal Artery Scan 06/30/23 18:37 Pulse Rate 78 06/30/23 18:37 Respiratory Rate 18 06/30/23 18:37 Blood Pressure 120/83 06/30/23 18:37 Blood Pressure Mean 95 06/30/23 18:37 Blood Pressure Position Sitting 06/30/23 18:37 Pulse Oximetry 98 06/30/23 18:37 Oxygen Delivery Method Room Air 06/30/23 18:37 Vital Signs Temperature 98.3 F 06/30/23 18:37 Pulse Rate 78 06/30/23 18:37 Respiratory Rate 18 06/30/23 18:37 Blood Pressure 120/83 06/30/23 18:37 Pulse Oximetry 98 06/30/23 18:37 Oxygen Delivery Method Room Air 06/30/23 18:37 Temperature 98.3 F 06/30/23 18:37 Pulse Rate 78 06/30/23 18:37 Respiratory Rate 18 06/30/23 18:37 Blood Pressure 120/83 06/30/23 18:37 Pulse Oximetry 98 06/30/23 18:37 Oxygen Delivery Method Room Air 06/30/23 18:37 MDM - Neck Pain/Injury MDM Narrative Medical decision making narrative: This patient has a history of cervical radiculopathy and did have a surgery in her neck about 4 5 months ago. She had good relief until the last 10 days or so when this pain has recurred. There is no recent injury event or strenuous activity that mandates imaging studies at this time. The patient does have a follow-up appointment with her surgeon in a few days. She did receive a 1 time intramuscular injection of morphine 10 mg. She understands that we will not repeat this treatment for this condition. I did provide prescriptions for Toradol, Flexeril, and Medrol Dosepak. Discharge Plan Discharge Clinical Impression: Cervical radiculopathy Patient Disposition: Home w/ Parent or Adult Condition: Stable Additional Instructions: Take medication as needed and indicated. Follow up with cardiovascular invasive specialist as scheduled. Prescriptions: New cyclobenzaprine 10 mg tablet 10 mg PO TID Qty: 15 0RF ketorolac 10 mg tablet 10 mg PO Q8H 5 Days Qty: 15 0RF methylprednisolone [Medrol (Diego)] 4 mg tablets,dose pack See Rx Instructions .ROUTE .COMPLEX Qty: 21 0RF Rx Instructions: orally per package directions No Action (DME) nebulizer and compressor [InnoSpire Essence] Device See Rx Instructions .ROUTE DIRECTED Qty: 1 Rx Instructions: As directed albuterol sulfate 90 mcg/actuation HFA aerosol inhaler 2 puff inhalation Q4-6H PRN fluticasone furoate-vilanterol [Breo Ellipta] inhalation naproxen 500 mg tablet 500 mg PO BID PRN (Reason: pain) albuterol sulfate 2.5 mg/0.5 mL solution for nebulization 5 mg inhalation QID PRN (Reason: shortness of breath or wheezing) Qty: 30 1RF (DME) nebulizers Misc See Rx Instructions .Route Qty: 1 0RF Rx Instructions: As directed fluticasone furoate-vilanterol 200-25 mcg/dose blister with device 1 inh inhalation DAILY Qty: 60 12RF omeprazole 20 mg capsule,delayed release(DR/EC) 20 mg PO QDAY Qty: 90 3RF sertraline 100 mg tablet 100 mg PO DAILY Qty: 90 1RF trazodone 300 mg tablet 300 mg PO QHS Qty: 90 1RF Follow Up/Referrals: Danny Hernández MD [Primary Care Provider] - Stand Alone Forms: [employer] Info Instructions
[2023-06-30] MEDS: MORPHINE 10 MG/ML inj IM (19:32)
== END 2023-06-30 19:42 | disposition home or self-care (01) ==
LOC: ED 19:26
PROVIDERS: Emergency Provider Emergency Medicine Emergency Medical Services; PCP Family Medicine
DX: M54.12 Radiculopathy, cervical region (principal)
CPT/HCPCS: 96374; 99284; J2270

== ENCOUNTER 2023-08-21 09:09 | Outpatient (CLI) | payer BC, SELFPAY ==
--- OUTSIDE RECORDS SUMMARY | 2023-08-21 09:13 | XMS_ITS | Continuity of Care Document ---
Author Name Unknown Organization [facility] Address [address] [place] [address] Phone Care Team Providers Care Environmental Scientist Name Role Phone RN, RN Unavailable Unavailable Allergies, Adverse Reactions, Alerts Substance Reaction Status Criticality No Known Allergies Active No Inform ation Medications Medication Instructions Dosage Effective Dates (start - stop) Status Comments zolpidem 5 mg tablet take 1 tablet by or al route every day at bedtime 5 MG - Active tramadol 50 mg tablet take 2 tablet by o ral route 4 times daily as needed - Active albuterol sulfate HFA 90 mcg/actuation aerosol inhaler inhale 1-2 puff by inhalation route every 4 hours as needed - Active Wellbutrin XL 150 mg 24 hr tablet, extended release take 1 tablet by oral route every day 150 MG - Active omeprazole 40 mg capsule,delayed release take 1 capsule by oral route every day before a meal 40 MG - Active Requip 0.5 mg tablet take 5 tablet by or al route daily at night - Active Zoloft 100 mg tablet take 1 tablet by or al route every day 100 MG - Active Procedures Procedure Date Est Pt Eval 15 Min Advance Directives Directive Yes / No Effective Date File Name No Information Encounters Encounter Description Practice Location Reason(s) For Visit Diagnoses Date Provider Providers Copied on Encounter [facility], [address], [place], [place], [id number], [place] tel:[phone] [facility] No Information 5 RN ANGE. [address], [address], [place], [id number], [place]. tel:[phone] Referring Provider: Jamin Silva MD, [address] [place], [address]. tel:[phone] [facility] [address], [place], [place], [id number], tel:[phone] [facility] No Information 0 4 Marixa CAIN Xavier. [address] [facility], [place], [address]. tel:[phone] Referring Provider: Jamin Silva MD, [address] [place], [address]. tel:[phone] [facility], [address], [place], [place], [id number], [place] tel:[phone] [facility] No Information 4 Mono Diamond. [address], [place], [place], [id number], [place]. tel:[phone] Referring Provider: Jamin Silva MD, [address] [place], [address]. tel:[phone] Family History Family Member Type Diagnosis Age At Onset Father Problem (finding) Heart disease, stroke High Blood Pressure Problem (finding) Father, Mother Brother Problem (finding) Chem. Dependency Payers Payer name Insurance type Covered constitution party ID Vasu garcia(s) [employer] [id number] [facility] [id number] Social History Type Description Quantity Date Captured Comments Sex Female Smoking Status No Information Chief Complaint And Reason For Visit No Information Reason For Referral Reason For Referral No Information History Of Present Illness Encounter Date Complaint History Of Prese nt Illness No Information Functional Status Date Functional Assessmen t No Information Instructions Date Instruction Additional Infor mation No Information Assessments Type Assessment Date No Information Patient Care Teams Name Effective Dates (start - stop) Status Members No Information
--- OUTSIDE RECORDS SUMMARY | 2023-08-21 09:13 | XMS_ITS | Continuity of Care Document ---
Author Name Unknown Organization [facility] Address [address] [place] [address] Phone Care Team Providers Care Technical Communicator Name Role Phone Will MD ORNELAS, Stephan Barr Unavailabl javed Advance Directives Directive Yes / No Effective Date File Name No Information Encounters Encounter Description Practice Location Reason(s) For Visit Diagnoses Date Provider Providers Copied on Encounter [facility], [address] [place] [address], [id number], [place] tel:[phone] [facility] No Information Will Stephan. [address] [facility] [place], [place], [id number], [place]. tel:[phone] Family History Family Member Type Diagnosis Age At Onset No Information Payers Payer name Insurance type Covered constitution party ID Authoriza tion(s) No Information Social History Type Description Quantity Date Captured Comments Alcohol Use Details Unknown Caffeine Use Details Unknown Tobacco Use Status No Information Smoking Status No Information Sex Female Chief Complaint And Reason For Visit No Information Reason For Referral Reason For Referral No Information Plan Of Treatment Date Type Action Status Goal Hepatitis C screening. Due o n due Goal Weight. Due on d ue Goal PHQ-9. Due on du e Goal Unhealthy drug use screening . Due on due Goal Lipid panel. Due on due Goal Height. Due on d ue Goal HPV. Due on due Goal Medication Reconciliation. D ue on due Goal Tobacco Use. Due on due Goal Review Allergy List. Due on due Goal Update Social History. Due o n due Appointment Lizette Serrato RECKrystina SCANNED ISABEL OKRUBIN History Of Present Illness Encounter Date Complaint History Of Prese nt Illness No Information Functional Status Date Functional Assessmen t No Information Instructions Date Instruction Additional Infor mation No Information Assessments Type Assessment Date No Information Patient Care Teams Name Effective Dates (start - stop) Status Members No Information
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
--- OUTSIDE RECORDS SUMMARY | 2023-08-21 09:13 | XMS_ITS | Continuity of Care Document ---
Author Name Unknown Organization [facility] Address [address] [place] [address] Phone Care Team Providers Care Seat Pack Inspector Name Role Phone Charlie Sahni MD Unavailable Unavailable Allergies, Adverse Reactions, Alerts Substance Reaction Status Criticality HYDROCODONE BITARTRATE Hives Active No In formation acetaminophen Hives Active No Information Medications Medication Instructions Dosage Effective Dates (start - stop) Status Comments TRAZODONE HCL (unknown strength) Not Available - Active OMEPRAZOLE (unknown strength) Not Available - Active ALBUTEROL SULFATE HFA (unknown strength) Not Available - Active SERTRALINE HCL (unknown strength) Not Available - Active BREO ELLIPTA (unknown strength) Not Available - Active Procedures Procedure Date Postop Followup Visit Postop Followup Visit ACDF - Anterior Cervical Discectomy and Fusion - PA Anterior Instrumentation, 2-3 Segments - PA PEEK/ Cage/ Implant, For Interbody Fusio n - PA ACDF - Anterior Cervical Discectomy and Fusion Anterior Instrumentation, 2-3 Segments N PEEK/ Cage/ Implant, For Interbody Fusio n Autograft, From Same Incision Allograft, Morcelized, and/or BMP Office/Outpatient Visit,Est, Mod 2022 Office/Outpatient Visit,New, Mod 2022 Advance Directives Directive Yes / No Effective Date File Name No Information Encounters Encounter Description Practice Location Reason(s) For Visit Diagnoses Date Provider Providers Copied on Encounter [facility], [address], [place], [place], [id number] , [place] tel: [phone] [facility] - On license of [facility] sciatica (chief complaint) Encounter for other specified surgical aftercare 4 Sahni Charlie. [facility], [address], [address], [place], [address], [place]. tel: [phone] Referring Provider: Danny Hernández, [facility] [address] [place], [address]. tel:[phone] [facility], [address], [place], [place], [id number] , [place] tel: [phone] [facility] - On license of [facility] Encounter for other specified surgical aftercare 3 Sahni Charlie. [facility], [address], [address], [place], [address], [place]. tel: [phone] Referring Provider: Danny Hernández, [facility] [address] [place], [address]. tel:[phone] [facility], [address], [place], [place], [id number] , [place] tel: [phone] [facility] No Information 3 Aaliyah Joy. [facility], [address], [address], [place], [address], [place]. tel: [phone] Referring Provider: Danny Hernández, [facility] [address] [place], [address]. tel:[phone] [facility], [address], [place], [place], [id number] , [place] tel: [phone] [facility] No Information 3 Sahni Charlie. [facility], [address], [address], [place], [address], [place]. tel: [phone] Referring Provider: Danny Hernández, [facility] [address] [place], [address]. tel:[phone] Office/Outpa tient Visit,Est, Mod [facility], [address], [place], [place], [id number] , [place] tel:[phone] [facility] Radiculopathy, cervical regionCervical disc disorder at C5-C6 level with radiculopathyOth er cervical disc displacement, high cervical region Oct- 3 Sahni Charlie. [facility], [address], [address], [place], [address], [place]. tel:[phone] Referring Provider: Danny Hernández, [facility] [address] [place], [address]. tel:[phone] Office/Outpa tient Visit,New, Mod [facility], [address], [place], [place], [id number] , [place] tel:[phone] [facility] Cervical disc disorder at C5-C6 level with radiculopathyOth er cervical disc displacement, high cervical regionRadiculopa thy, cervical region Sep- 3 Sahni Charlie. [facility], [address], [address], [place], [address], [place]. tel:[phone] Referring Provider: Danny Hernández, [facility] [address] [place], [address]. tel:[phone] Family History Family Member Type Diagnosis Age At Onset No Information Payers Payer name Insurance type Covered alliance party ID Authorcheryla pattiailyn([place]) [place] [id number] Out Of State [id number] Social History Type Description Quantity Date Captured Comments Alcohol Use Details Unknown Caffeine Use Details Unknown Tobacco Use Status Light cigarette smok er (1-9 cigs/day) Smoking Status Light tobacco smoker Smoking Tobacco Use Details Cigarette: No Details Available Cigarette: 2 Cigarettes per day Sex Female Vital Signs Date / Time: Height Weight BMI Pulse Rate Blood Pressure Temperature Respiratory Rate Body Surface Area Head Circumference Head Circ. Percentile Wt./Milad. Percentile BMI percentile Pulse Ox Inhaled Ox 11:38 AM 65.50 in 81.102 kg (178.80 lbs) 29.3 0 kg/m eter (2) Chief Complaint And Reason For Visit From encounter dated '05/27/2023 11:50'. sciatica (chief complaint) Reason For Referral Reason For Referral No Information History Of Present Illness Encounter Date Complaint History Of Prese nt Illness sciatica Functional Status Date Functional Assessmen t No Information Instructions Date Instruction Additional Infor mation No Information Assessments Type Assessment Date No Information Patient Care Teams Name Effective Dates (start - stop) Status Members No Information
--- OUTSIDE RECORDS SUMMARY | 2023-08-21 09:14 | XMS_ITS | Clinical Summary ---
Author Name Unknown Organization [facility] Address [address] [place] [id number] Care Team Providers Care Vehicle Maintenance Technician Name Role Phone Clinic, [facility] Primary Care Provider Allergies Active Allergy Reactions Criticality Noted Date Comments Hydrocodone-Acetaminophen Itching 12/30/2020 Medications Medication Sig Dispensed Refills Start Date End Date Status SERTRALINE HCL PO Take 100 mg by mouth daily Active ROPINIROLE HCL PO Take 2.5 mg by mouth daily Active albuterol (PROAIR HFA, PROVENTIL HFA, VENTOLIN HFA) 108 (90 BASE) MCG/ACT inhaler Inhale 2 puffs into the lungs every 6 hours Active NORTRIPTYLINE HCL PO Acti ve Active Problems No known active problems Social History Tobacco Use Types Packs/Day Years Used Date Smoking Tobacco: Some Days Cigarettes Alcohol Use Standard Drinks/Week Comments Yes 0 (1 standard drink = 0.6 oz pur e alcohol) Adolescent Education Answer Date Record ed Getting School Help Needed Not on file 01/03 Sex and Gender Information Value Date Recorded Sex Assigned at Not on file Gender Identity Not on file Sexual Orientation Not on file Last Filed Vital Signs Vital Sign Reading Time Taken Comments Blood Pressure 106/76 12/30/2020 9:00 PM CDT Pulse 98 12/30/2020 5:16 PM CDT Temperature 36.8 ??C (98.3 ??F) 12/30/2020 5:16 PM CD T Respiratory Rate 20 12/30/2020 5:16 PM CDT [...] 1982 ANNUAL REVIEW OF HM ORDERS 1982 MAMMO SCREENING 1982 YEARLY PREVENTIVE VISIT 1982 Pneumococcal Vaccine: Pediatrics (0 to 5 Years) and At-Risk Patients (6 to 64 Years) (1 of 2 - PCV) 01/13/1988 HIV SCREENING 1997 HEPATITIS C SCREENING 01/13/2000 HEPATITIS B IMMUNIZATION (1 of 3 - 19+ 3-dose series) 2001 PAP 2003 GLUCOSE 11/12/2018 11/13/2015, 09/12, 05/14/2014, Additional history exists LIPID 2022 COVID-19 Vaccine (3 - season) 2022 08/29/2020, 08/01/2020 PHQ-2 (once per calendar year) 2023 INFLUENZA VACCINE (Season Ended) 2023 06/14/2019, 12/06/2014, 01/18/2014, Additional history exists DTAP/TDAP/TD IMMUNIZATION (3 - Td or Tdap) 06/13/2029 06/14/2019, 12/09/2008 HPV IMMUNIZATION Aged Out No longer e ligible based on patient's age to complete this topic IPV IMMUNIZATION Aged Out No longer e ligible based on patient's age to complete this topic MENINGITIS IMMUNIZATION Aged Out No l onger eligible based on patient's age to complete this topic RSV MONOCLONAL ANTIBODY Aged Out No l onger eligible based on patient's age to complete this topic Procedures Procedure Name Priority Date/Time Associated Diagnosis Comments COMPREHENSIVE METABOLIC PANEL STAT 11/13/2015 8:19 PM CDT from Last 3 Months or Most Recently Relevant to Health Maintenance Results * (ABNORMAL) Comprehensive metabolic panel (11/13/2015 8:19 PM CDT) Sodium 141 133 - 144 mmol/L [facility] Potassium 4.4 3.4 - 5.3 mmol/L [facility] Chloride 109 94 - 109 mmol/L [facility] Carbon Dioxide 27 20 - 32 mmol/L [facility] Anion Gap 5 3 - 14 mmol/L [facility] Glucose 123(H) 70 - 99 mg/dL [facility] Urea Nitrogen 7 7 - 30 mg/dL [facility] Creatinine 0.63 0.52 - 1.04 mg/dL [facility] GFR Estimate >90 Non GFR Calc >60 mL/min/1. 7m2 [facility] GFR Estimate If Black >90 GFR Calc >60 mL/min/1. 7m2 [facility] Calcium 8.7 8.5 - 10.1 mg/dL [facility] Bilirubin Total 0.3 0.2 - 1.3 mg/dL [facility] Albumin 3.4 3.4 - 5.0 g/dL [facility] Protein Total 6.9 6.8 - 8.8 g/dL [facility] Alkaline Phosphatase 72 40 - 150 U/L [facility] ALT 28 0 - 50 U/L [facility] AST 17 0 - 45 U/L [facility] Blood specimen (specimen) 11/13/2015 8:19 PM CDT 11/13/2015 8:26 PM CDT Krysta Pantoja MD LAB - BLOOD ORDERABL ES [facility] [address] [place] [address], [facility] [phone] from Last 3 Months or Most Recently Relevant to Health Maintenance Care Teams Vehicle Maintenance Technician Relationship Specialty Start Date End Date [facility], [facility] [address] [place] [id number] PCP - General 12/30/20
--- OUTSIDE RECORDS SUMMARY | 2023-08-21 09:14 | XMS_ITS | Referral Summary ---
Author Name Unknown Organization [facility] Address [address] [place] [id number] Care Team Providers Care Media Services Director Name Role Phone Clinic, [facility] Primary Care Provider Allergies Active Allergy Reactions [...] 01/15/2016 8:49 PM CDT Plan of Treatment Not on file Procedures Procedure Name Priority Date/Time Associated Diagnosis Comments COMPREHENSIVE METABOLIC PANEL STAT 11/13/2015 8:19 PM CDT from Last 3 Months or Most Recently Relevant to Health Maintenance Results * (ABNORMAL) Comprehensive metabolic panel (11/13/2015 8:19 PM CDT) Sodium 141 133 - 144 mmol/L [facility] Potassium 4.4 3.4 - 5.3 mmol/L [facility] Chloride 109 94 - 109 mmol/L [facility] Carbon Dioxide 27 20 - 32 mmol/L [facility] Anion Gap 5 3 - 14 mmol/L [facility] Glucose 123(H) 70 - 99 mg/dL [facility] Urea Nitrogen 7 7 - 30 mg/dL [facility] Creatinine 0.63 0.52 - 1.04 mg/dL [facility] GFR Estimate >90 Non GFR Calc >60 mL/min/1. 7m2 [facility] GFR Estimate If Black >90 GFR Calc >60 mL/min/1. 7m2 [facility] Calcium 8.7 8.5 - 10.1 mg/dL [facility] Bilirubin Total 0.3 0.2 - 1.3 mg/dL [facility] Albumin 3.4 3.4 - 5.0 g/dL [facility] Protein Total 6.9 6.8 - 8.8 g/dL [facility] Alkaline Phosphatase 72 40 - 150 U/L [facility] ALT 28 0 - 50 U/L [facility] AST 17 0 - 45 U/L [facility] Blood specimen (specimen) 11/13/2015 8:19 PM CDT 11/13/2015 8:26 PM CDT Krysta Pantoja MD LAB - BLOOD ORDERABL ES [facility] [address] [place], [place] [address] [phone] from Last 3 Months or Most Recently Relevant to Health Maintenance Care Teams Media Services Director Relationship Specialty Start Date End Date Clinic, [facility] [address] [place] [address] PCP - General 12/30/20
--- OUTSIDE RECORDS SUMMARY | 2023-08-21 09:14 | XMS_ITS | Encounter Summary ---
Author Name Unknown Organization [facility] Address [address] [place] [id number] Care Team Providers Care Utility Bill Collection Clerk Name Role Phone [facility] Primary Care Provider Encounter Details Date Type Department Care Team (Late st Contact Info) Description 12/30/2020 Documentation Only INTERFACED REPORT Unknown, Provider Social History Tobacco Use Types Packs/Day Years Used Date Smoking Tobacco: Some Days Cigarettes Alcohol Use Standard Drinks/Week Comments Yes 0 (1 standard drink = 0.6 oz pur e alcohol) Sex and Gender Information Value Date Recorded Sex Assigned at Not on file Gender Identity Not on file Sexual Orientation Not on file COVID-19 Exposure Response Date Recorded In the last month, have you been in contact with someone who was confirmed or suspected to have Coronavirus / COVID-19? No / Unsure 12/30/2020 5:15 PM CDT documented as of this encounter Plan of Treatment Not on file documented as of this encounter Visit Diagnoses Not on filedocumented in this encounter Care Teams Utility Bill Collection Clerk Relationship Specialty Start Date End Date [facility] [address] [facility] [place] [address] PCP - General 12/30/20 documented as of this encounter
[2023-08-21 14:29] LABS: Chlamydia DNA Amplified* NOT DETECTED (No Detected); GC DNA Amplified* NOT DETECTED (No Detected)
== END 2023-08-21 09:10 | disposition home or self-care (01) ==
LOC: NFLDUCREF 09:10
PROVIDERS: PCP Family Medicine; Visit Provider Nurse Practitioner Family
DX: R30.0 Dysuria (principal); N30.01 Acute cystitis with hematuria
CPT/HCPCS: 87086; 87491; 87591